=== PATIENT | female | born 1930 | race Caucasian/White ===

== ENCOUNTER 2016-10-09 19:09 | Inpatient (IN) | payer OTHER ==
--- NOTE | 2016-10-09 20:05 | PDOC ---
History of Present Illness - General History Source: Patient, Care Provider, Family, Old Records Exam Limitations: No Limitations - History of Present Illness Initial Comments: 10/09/16 20:35 The patient is a 86 year old female, accompanied by family, with a significant past medical history of hypertension, hypercholesterolemia, coronary artery disease, angina, CVA, advanced dementia, diabetes mellitus, chronic severe constipation, multiple urinary tract infections who presents to the emergency department today for further evaluation of a possible UTI since this morning. As per family, the patients home health aid noticed some swelling by the bladder. As per family patient has associated altered mental status (from baseline), fever, dysuria, and tachycardia. As per family, at baseline the patient recognized people and communicate verbally (Day>Night) but does not ambulate on her own. As per home improvement advisor, patient was last seen at baseline this morning. The patient denies chills, and sweats. The patient denies nausea, vomiting, and diarrhea. The patient denies chest pain, cough, and shortness of breath. PCP: Not affiliated <Yuriy Colmenares - Last Filed: 10/09/16 23:59> <Suzanne Snowden - Last Filed: 10/10/16 21:08> - General Chief Complaint: Urinary Problem Stated Complaint: UTI Time Seen by Provider: 10/09/16 19:44 Past History <Yuriy Colmenares - Last Filed: 10/09/16 23:59> - Past Medical History Anemia: No Asthma: No Cancer: No Cardiac Disorders: Yes (angina) CVA: Yes COPD: No CHF: No Dementia: Yes Diabetes: Yes GI Disorders: Yes (Severe constipation) Disorders: Yes (Occassional UTI (12/2012)) HTN: Yes Hypercholesterolemia: Yes Liver Disease: No Suicide Attempt (Hx): No Seizures: No Thyroid Disease: No - Surgical History Abdominal Surgery: Yes Appendectomy: Yes Cardiac Surgery: Yes (QUAD. BYPASS, CARD STENT) Cholecystectomy: No Lung Surgery: No Neurologic Surgery: No Orthopedic Surgery: No - Immunization History Immunization Up to Date: Yes - Psycho/Social/Smoking Cessation Hx Anxiety: No Suicidal Ideation: No Smoking Status: No Smoking History: Unknown if ever smoked Have you smoked in the past 12 months: No Number of Cigarettes Smoked Daily: 0 Information on smoking cessation initiated: No Hx Alcohol Use: No Drug/Substance Use Hx: No Substance Use Type: None Hx Substance Use Treatment: No <SpJoseporfiroi Tompkins - Last Filed: 10/10/16 21:08> - Past Medical History Allergies/Adverse Reactions: Allergies Allergy/AdvReac Type Severity Reaction Status Date / Time quetiapine fumarate Allergy Severe Difficulty Verified 10/09/16 19:46 [From Seroquel] Breathing ranolazine [From Ranexa] Allergy Verified 10/09/16 19:46 Home Medications: Ambulatory Orders Clopidogrel Bisulfate [Plavix -] 75 mg PO DAILY 12/23/15 Duloxetine HCl 20 mg PO DAILY 12/23/15 Ferrous Sulfate 325 mg PO DAILY 12/23/15 Isosorbide Mononitrate [Imdur -] 90 mg PO DAILY 12/23/15 Metformin HCl 850 mg PO BID 12/23/15 Polyethylene Glycol 3350 [Miralax 119 gm Btl -] 17 gm PO TID 12/23/15 Docusate Sodium [Colace -] 100 mg PO BID #40 capsule 04/14/16 Metoprolol Succinate [Toprol XL -] 50 mg PO DAILY #21 tab.sr.24h 04/14/16 Aspirin [ASA -] 81 mg PO DAILY #30 tab.chew 08/17/16 Atorvastatin Ca [Lipitor] 20 mg PO HS #30 tablet 08/17/16 Lactobacillus Acidophilus [Bacid -] 1 each PO DAILY #30 capsule 08/17/16 Abd/GI Specific PMHX - Complaint Specific PMHX Colitis: No Diverticulitis: No GERD: No Irritable Bowel Synd (IBS): No Pancreatitis: No <Suzanne Snowden - Last Filed: 10/10/16 21:08> Review of Systems - Review of Systems Able to Perform ROS?: Yes Comments:: 10/09/16 20:36 CONSTITUTIONAL: Present: fever Absent: no chills, no fatigue EYES: Absent: visual changes ENT: Absent: ear pain, no sore throat CARDIOVASCULAR: Present: Tachycardic Absent: chest pain, no palpitations RESPIRATORY: Absent: cough, no SOB GI: Present: Chronic constipation Absent: abdominal pain, no nausea, no vomiting, no diarrhea GENITOURINARY: Present: dysuria Absent: no frequency, no hematuria MUSCULOSKELETAL: Absent: back pain, no arthralgia, no myalgia SKIN: Absent: rash NEURO: Present: altered mental status Absent: headache <Yuriy Colmenares - Last Filed: 10/09/16 23:59> *Physical Exam - Vital Signs Last Vital Signs Temp Pulse Resp BP Pulse Ox 100.8 F H 124 H 18 178/112 100 10/09/16 19:46 10/09/16 19:46 10/09/16 19:46 10/09/16 19:46 10/09/16 19:46 - Physical Exam Comments: 10/09/16 20:36 GENERAL: Well-appearing, well-nourished. No apparent distress. HEENT: Normocephalic, atraumatic. PERRL, EOM intact. CARDIOVASCULAR: (+) Tachycardia, normal S1, S2. Regular rhythm. PULMONARY: Clear to auscultation bilaterally. ABDOMEN: (+) Turbulent tender abdomen . Soft, non-distended. EXTREMITIES: Normal ROM in all four extremities. No gross deformities. SKIN: Warm, dry. No rash NEUROLOGICAL: Awake. <Yuriy Colmenares - Last Filed: 10/09/16 23:59> - Vital Signs Last Vital Signs Temp Pulse Resp BP Pulse Ox 100.8 F H 124 H 18 178/112 100 10/09/16 19:46 10/09/16 19:46 10/09/16 19:46 10/09/16 19:46 10/09/16 19:46 <Suzanne Snowden - Last Filed: 10/10/16 21:08> ED Treatment Course - LABORATORY CBC & Chemistry Diagram: 10/09/16 20:46 10/09/16 20:46 <Yuriy Colmenares - Last Filed: 10/09/16 23:59> - LABORATORY CBC & Chemistry Diagram: 10/09/16 20:46 10/09/16 20:46 <Suzanne Snowden - Last Filed: 10/10/16 21:08> Medical Decision Making - Medical Decision Making 10/10/16 00:[address] Lyons. Case discussed. He wants to admit patient to [facility]. <Yuriy Colmenares - Last Filed: 10/09/16 23:59> - Medical Decision Making 10/10/16 21:03 86 YO FEMALE BROUGHT BY FAMILY FROM HOME FOR FEVER AND ams. she is tachycardic, febrile -PT HAS H/O ams ASSOCIATED WITH uti -NO FOCAL NEURO DEFICITS,PT SMILES AND TRACKS WITH HER EYES, SAYS HELLO pt has leukocytosis, UA c/w uti -pt has h/o multiple drug resistant uti, reviewed old urine culture from last November when her cultures showed sensitivity alek zosyn and so she was startedonthis <Suzanne Snowden - Last Filed: 10/10/16 21:08> *DC/Admit/Observation/Transfer - Attestations Scribe Attestion: 10/09/16 20:36 Documentation prepared by Yuriy Colmenares, acting as medical receptionist biller for Suzanne Snowden MD. <Yuriy Colmenares - Last Filed: 10/09/16 23:59> - Discharge Dispostion Admit: Yes <Suzanne Snowden - Last Filed: 10/10/16 21:08> Diagnosis at time of Disposition: UTI (lower urinary tract infection), Hyperglycemia, Urinary retention Altered mental status Qualifiers: Altered mental status type: somnolence Qualified Code(s): R40.0 - Somnolence - Referrals
[2016-10-09] MEDS ORDERED: ACETAMINOPHEN 1000 MG/100 ML VIAL (NON FORMULARY) IVPB ONE (20:27)
[2016-10-09 21:12] LABS: BASOPHIL 0.1 % (0-2.0); EOSINOPHIL 0.2 % (0-4.5); MCH 28.4 pg (25.7-33.7); MCHC 32.9 g/dl (32.0-36.0); MEAN CELL VOLUME 86.2 fl (80-96); MEAN PLT VOLUME 8.5 fl (7.5-11.1); NEUTROPHILS 84.5 % (42.8-82.8); PLATELET COUNT 265 K/MM3 (134-434); RDW 15.8 % (11.6-15.6); WHITE BLOOD COUNT 16.1 K/mm3 (4.0-10.0)
[2016-10-09 21:14] LABS: ARTERIAL BLOOD GAS pH 7.44 (7.35-7.45)
[2016-10-09] MEDS ORDERED: ACETAMINOPHEN INJECTION 100 ML IVPB ONE (21:14)
[2016-10-09 21:15] LABS: ARTERIAL BLOOD GAS BASE EXCESS -2.8 meq/l (-2-2); ARTERIAL BLOOD GAS HCO3 19.7 meq/L (22-26); METHEMOGLOBIN 1.3 % (0.4-1.5)
[2016-10-09 21:16] LABS: LPM/O2% 21%; TYPE OF O2 R/A
[2016-10-09 21:18] LABS: ALLENS TEST POSITIVE; PT. ON O2? NO
[2016-10-09 21:27] LABS: INR 1.03 (0.82-1.09); PROTHROMBIN TIME (PATIENT) 11.3 SEC (9.98-11.88)
[2016-10-09 21:29] LABS: ACTIVATED PTT 30.4 SECONDS (26.9-34.4)
[2016-10-09 21:31] LABS: ALBUMIN 3.4 g/dl (3.4-5.0); ANION GAP 11 (8-16); BILIRUBIN,TOTAL 0.4 mg/dL (0.2-1.0); CALCIUM 9.3 mg/dL (8.5-10.1); CO2 20 mmol/L (21-32); CREATININE 0.7 mg/dL (0.55-1.02); GLUCOSE,RANDOM 250 mg/dL (74-106); SGOT/AST 9 U/L (15-37); SGPT/ALT 13 U/L (12-78); TOT PROT 7.1 g/dl (6.4-8.2)
[2016-10-09 21:33] LABS: ALK PHOS 64 U/L (45-117); TROPONIN I < 0.02 ng/ml (0.00-0.05)
[2016-10-09] MEDS ORDERED: SODIUM CHLORIDE 250 ML IV STA (22:36)
[2016-10-09 22:46] LABS: URINE APPEARANCE SLCLOUDY; URINE BILIRUBIN NEGATIVE (NEGATIVE); URINE COLOR LTYELLOW; URINE GLUCOSE (UA) 2+ (NEGATIVE); URINE KETONE NEGATIVE (NEGATIVE); URINE NITRITE NEGATIVE (NEGATIVE); URINE UROBILINOGEN NEGATIVE E.U./dl (0.2-1.0)
[2016-10-09 22:48] LABS: URINE BLOOD 2+ (NEGATIVE); URINE LEUK ESTERASE 3+ (NEGATIVE); URINE PROTEIN 2+ (NEGATIVE)
[2016-10-09 22:51] LABS: URINE BACTERIA RARE /hpf (NONE SEEN); URINE MUCUS RARE; URINE RBC 10 /hpf (0-3); URINE WBC 219 /hpf (3-5); YEAST FEW
[2016-10-09] MEDS ORDERED: LEVOFLOXACIN 500 MG IVPB 100 ML IVPB ONE ×2 (23:35→23:50)
--- NOTE | 2016-10-10 00:19 | PN ---
<Amy Galvan - Last Filed: 10/10/16 00:19> Teaching Attending Note Name of Resident: Fransico Pugh ATTENDING PHYSICIAN STATEMENT I saw and evaluated the patient. I reviewed the resident's note and discussed the case with the resident. I agree with the resident's findings and plan as documented. SUBJECTIVE: OBJECTIVE: ASSESSMENT AND PLAN: <Radha Reyna - Last Filed: 10/10/16 01:23> Teaching Attending Note ATTENDING PHYSICIAN STATEMENT I saw and evaluated the patient. I reviewed the resident's note and discussed the case with the resident. I agree with the resident's findings and plan as documented. SUBJECTIVE: Patient is a 86 yo F with a PMHx of hypertension, hypercholesterolemia, coronary artery disease, angina, CVA, advanced dementia, diabetes mellitus, chronic severe constipation, and multiple urinary tract infections who presents with altered mental status, fever and fast heart rate. As per daughter, patient s home health aid noticed lower abdominal swelling this morning. Patients daughter also reports patient is typically able to communicate verbally, but does not ambulate on her own. Allergies: quetiapine, fumarate, ranolazine OBJECTIVE: Last Vital Signs Temp Pulse Resp BP Pulse Ox 100.8 F H 124 H 18 178/112 100 10/09/16 19:46 10/09/16 19:46 10/09/16 19:46 10/09/16 19:46 10/09/16 19:46 GENERAL: AAO x 0, in no acute distress. resting in bed. HEENT: Atraumatic. PERRLA, EOMI. Moist mucosa. No JVD LUNGS: No distress, speaks full sentences, clear to auscultation bilaterally HEART: tachycardia S1 and S2, no murmurs, rubs or gallops, peripheral pulses normal and equal bilaterally. ABDOMEN: Soft, nontender, normoactive bowel sounds. No guarding, no rebound. No masses EXTREMITIES: Normal inspection, Normal range of motion, no edema. No clubbing or cyanosis. NEUROLOGICAL: Cranial nerves II through XII grossly intact. Normal speech, normal gait, no focal sensorimotor deficits SKIN: Warm, Dry, normal turgor, no rashes or lesions noted. CBCD WBC 16.1 K/mm3 (4.0-10.0) H D 10/09/16 20:46 RBC 4.71 M/mm3 (3.60-5.2) 02/12/17 20:46 Hgb 13.4 GM/dL (10.7-15.3) D 10/09/16 20:46 Hct 40.6 % (32.4-45.2) 10/09/16 20:46 MCV 86.2 fl (80-96) 10/09/16 20:46 MCHC 32.9 g/dl (32.0-36.0) 10/09/16 20:46 RDW 15.8 % (11.6-15.6) H 10/09/16 20:46 Plt Count 265 K/MM3 (134-434) 10/09/16 20:46 MPV 8.5 fl (7.5-11.1) 10/09/16 20:46 CMP Sodium 137 mmol/L (136-145) 10/09/16 20:46 Potassium 4.1 mmol/L (3.5-5.1) 10/09/16 20:46 Chloride 106 mmol/L (98-107) 10/09/16 20:46 Carbon Dioxide 20 mmol/L (21-32) L D 10/09/16 20:46 Anion Gap 11 (8-16) 10/09/16 20:46 BUN 28 mg/dL (7-18) H 10/09/16 20:46 Creatinine 0.7 mg/dL (0.55-1.02) 10/09/16 20:46 Creat Clearance w eGFR > 60 (>60) 10/09/16 20:46 Calcium 9.3 mg/dL (8.5-10.1) 10/09/16 20:46 Total Bilirubin 0.4 mg/dL (0.2-1.0) 10/09/16 20:46 AST 9 U/L (15-37) L 10/09/16 20:46 ALT 13 U/L (12-78) D 10/09/16 20:46 Alkaline Phosphatase 64 U/L (45-117) 10/09/16 20:46 Total Protein 7.1 g/dl (6.4-8.2) 10/09/16 20:46 Albumin 3.4 g/dl (3.4-5.0) 10/09/16 20:46 ASSESSMENT AND PLAN: Patient is a 86 yo F with a PMHx of hypertension, hypercholesterolemia, coronary artery disease, angina, CVA, advanced dementia, diabetes mellitus, chronic severe constipation, multiple urinary tract infections who presents with AMS found to be septic secondary to UTI. 1.) Prior culture positive for ESBL e coli -Zosyn 3.37 Q 6 -U culture -Dr. Ritchie on consult -Blood cultures -Repeat lactic acid -Gentle IVF 2.) Uncontrolled DM -Fingersticks -RAISS 3.) CAD -Continue home meds 4.) HLD -Continue statin 5.) HTN -Continue home meds DVT ppx -Heparin 5000 Q 8 Documentation prepared by Radha Reyna, acting as medical laboratory manager for Amy Galvan D.O.
[2016-10-10] MEDS ORDERED: PIPERACILLIN/TAZOB 3.375 GM 3.375 GM in DEXTROSE 5%-WATER - 50 ML IVPB ONE (01:16)
[2016-10-10] MEDS ORDERED: PIPERACILLIN/TAZOB 3.375 GM 50 ML IVPB ONE (01:24)
--- NOTE | 2016-10-10 01:39 | HP ---
CHIEF COMPLAINT: Urinary retention PCP: Dr. Lyons HISTORY OF PRESENT ILLNESS: 86 yo F with significant PMHx of HTN, HLD,DM, CAD(s/p CABG), CVA, multiple UTI and dementia presents for further evaluation for possible UTI. SHe is accompanied by her family who state that she is at her baseline as of the morning of 10/09/16 when her home health aid noticed that she was not communicating as she normally does. Aide also noticed fever and patient complaining of dysuria. Decision was made to bring her to ED as she has had similar episodes in past that have required hospitilzaton. She was seen recently in 2015 for very similar presentation and found to have ESBL in urine. Patient denies CP, REGALADO, SOB, palpitation, chills, n/v/d/c. ER course was notable for: (1)UA(+) UTI- given levaquin and zosyn, UC pending. h/o ESBL (2)CXR (-) acute pathology. Rapid FLu(-) (3)hyperglycemia - glucose 250 Recent Travel: no PAST MEDICAL HISTORY:HTN, HLD,DM, CAD(s/p CABG), CVA, multiple UTI and dementia PAST SURGICAL HISTORY: Appendectomy ,CABG, stent. Social History: Smoking:no Alcohol:no Drugs: no Family History: Allergies quetiapine fumarate [From Seroquel] Allergy (Severe, Verified 10/09/16 19:46) Difficulty Breathing NMS ranolazine [From Ranexa] Allergy (Verified 10/09/16 19:46) HOME MEDICATIONS: Home Medications Medication Instructions Recorded Clopidogrel Bisulfate [Plavix -] 75 mg PO DAILY 12/23/15 Duloxetine HCl 20 mg PO DAILY 12/23/15 Ferrous Sulfate 325 mg PO DAILY 12/23/15 Isosorbide Mononitrate [Imdur -] 90 mg PO DAILY 12/23/15 Metformin HCl 850 mg PO BID 12/23/15 Pilocarpine 2% [Pilostat 2% -] 15 ml OD BID 12/23/15 Polyethylene Glycol 3350 [Miralax 17 gm PO TID 12/23/15 119 gm Btl -] Docusate Sodium [Colace -] 100 mg PO BID #40 capsule 04/14/16 Metoprolol Succinate [Toprol XL -] 50 mg PO DAILY #21 tab.sr.24h 04/14/16 Aspirin [ASA -] 81 mg PO DAILY #30 tab.chew 08/17/16 Atorvastatin Ca [Lipitor] 20 mg PO HS #30 tablet 08/17/16 Lactobacillus Acidophilus [Bacid -] 1 each PO DAILY #30 capsule 08/17/16 REVIEW OF SYSTEMS CONSTITUTIONAL: fever, chills, diaphoresis, generalized weakness Absent: , malaise, loss of appetite, weight change HEENT: Absent: rhinorrhea, nasal congestion, throat pain, throat swelling, difficulty swallowing, mouth swelling, ear pain, eye pain, visual changes CARDIOVASCULAR: Absent: chest pain, syncope, palpitations, irregular heart rate, lightheadedness , peripheral edema RESPIRATORY: Absent: cough, shortness of breath, dyspnea with exertion, orthopnea, wheezing, stridor, hemoptysis GASTROINTESTINAL: Absent: abdominal pain, abdominal distension, nausea, vomiting, diarrhea, constipation, melena, hematochezia GENITOURINARY: dysuria, frequency, Absent: urgency, hesitancy, hematuria, flank pain, genital pain MUSCULOSKELETAL: Absent: myalgia, arthralgia, joint swelling, back pain, neck pain SKIN: Absent: rash, itching, pallor HEMATOLOGIC/IMMUNOLOGIC: Absent: easy bleeding, easy bruising, lymphadenopathy, frequent infections ENDOCRINE: Absent: unexplained weight gain, unexplained weight loss, heat intolerance, cold intolerance NEUROLOGIC: mental status changes Absent: headache, focal weakness or paresthesias, dizziness, unsteady gait, seizure,, bladder or bowel incontinence PSYCHIATRIC: Absent: anxiety, depression, suicidal or homicidal ideation, hallucinations. PHYSICAL EXAMINATION Vital Signs - 24 hr 10/09/16 19:46 Temperature 100.8 F H Pulse Rate 124 H Respiratory 18 Rate Blood Pressure 178/112 O2 Sat by Pulse 100 Oximetry (%) GENERAL: Lethargic and non verbal, thin and frail HEAD: Normal with no signs of trauma. EYES: Pupils equal, round and reactive to light, extraocular movements intact, sclera anicteric, conjunctiva clear. No lid lag. EARS, NOSE, THROAT: Ears normal, nares patent, oropharynx clear without exudates. dry mucous membranes. NECK: supple with no jvd LUNGS: Breath sounds equal, clear to auscultation bilaterally. No wheezes, and no crackles. No accessory muscle use. HEART: Regular rate and rhythm, normal S1 and S2 without murmur, rub or gallop. ABDOMEN: Soft, nontender, not distended, normoactive bowel sounds, no guarding, no rebound, no masses. No hepatomegaly or splenomegaly. MUSCULOSKELETAL: No bony deformities or tenderness. No CVA tenderness. UPPER EXTREMITIES: 2+ pulses, No cyanosis. No clubbing. Cap refill <2 seconds. No peripheral edema. LOWER EXTREMITIES:1+ pulses No calf tenderness. No peripheral edema. NEUROLOGICAL: lethargic and non verbal PSYCHIATRIC: flat effect. SKIN:cool and clammy, Laboratory Results - last 24 hr 10/09/16 10/09/16 10/09/16 20:40 20:46 20:46 WBC 16.1 H D RBC 4.71 Hgb 13.4 D Hct 40.6 MCV 86.2 MCHC 32.9 RDW 15.8 H Plt Count 265 MPV 8.5 Neutrophils % 84.5 H Lymphocytes % 7.1 L D Monocytes % 8.1 Eosinophils % 0.2 D Basophils % 0.1 INR 1.03 PTT (Actin FS) 30.4 Puncture Site ABG pH ABG pCO2 at Pt Temp ABG pO2 at Pt Temp ABG HCO3 ABG O2 Sat (Measured) ABG O2 Content ABG Base Excess Amandeep Test Carboxyhemoglobin Methemoglobin O2 Delivery Device Oxygen Flow Rate Sodium Potassium Chloride Carbon Dioxide Anion Gap BUN Creatinine Creat Clearance w eGFR Random Glucose Lactic Acid 1.618 Calcium Total Bilirubin AST ALT Alkaline Phosphatase Creatine Kinase Troponin I Total Protein Albumin Urine Color Urine Appearance Urine pH Ur Specific [place] Urine Protein Urine Glucose (UA) Urine Ketones Urine Blood Urine Nitrite Urine Bilirubin Urine Urobilinogen Ur Leukocyte Esterase Urine RBC Urine WBC Urine Bacteria Urine Mucus Urine Yeast Blood Type Antibody Screen 10/09/16 10/09/16 10/09/16 20:46 20:46 20:56 WBC RBC Hgb Hct MCV MCHC RDW Plt Count MPV Neutrophils % Lymphocytes % Monocytes % Eosinophils % Basophils % INR PTT (Actin FS) Puncture Site Md puncture ABG pH 7.44 ABG pCO2 at Pt Temp 29.5 L ABG pO2 at Pt Temp 107.0 H ABG HCO3 19.7 L ABG O2 Sat (Measured) 98.0 ABG O2 Content 18.6 ABG Base Excess -2.8 L Amandeep Test Positive Carboxyhemoglobin 1.2 Methemoglobin 1.3 O2 Delivery Device R/a Oxygen Flow Rate 21% Sodium 137 Potassium 4.1 Chloride 106 Carbon Dioxide 20 L D Anion Gap 11 BUN 28 H Creatinine 0.7 Creat Clearance w eGFR > 60 Random Glucose 250 H D Lactic Acid Calcium 9.3 Total Bilirubin 0.4 AST 9 L ALT 13 D Alkaline Phosphatase 64 Creatine Kinase 19 L Troponin I < 0.02 Total Protein 7.1 Albumin 3.4 Urine Color Urine Appearance Urine pH Ur Specific [place] Urine Protein Urine Glucose (UA) Urine Ketones Urine Blood Urine Nitrite Urine Bilirubin Urine Urobilinogen Ur Leukocyte Esterase Urine RBC Urine WBC Urine Bacteria Urine Mucus Urine Yeast Blood Type A POSITIVE Antibody Screen Negative 10/09/16 22:30 WBC RBC Hgb Hct MCV MCHC RDW Plt Count MPV Neutrophils % Lymphocytes % Monocytes % Eosinophils % Basophils % INR PTT (Actin FS) Puncture Site ABG pH ABG pCO2 at Pt Temp ABG pO2 at Pt Temp ABG HCO3 ABG O2 Sat (Measured) ABG O2 Content ABG Base Excess Amandeep Test Carboxyhemoglobin Methemoglobin O2 Delivery Device Oxygen Flow Rate Sodium Potassium Chloride Carbon Dioxide Anion Gap BUN Creatinine Creat Clearance w eGFR Random Glucose Lactic Acid Calcium Total Bilirubin AST ALT Alkaline Phosphatase Creatine Kinase Troponin I Total Protein Albumin Urine Color Ltyellow Urine Appearance Slcloudy Urine pH 5.0 Ur Specific [place] 1.012 Urine Protein 2+ H Urine Glucose (UA) 2+ H Urine Ketones Negative Urine Blood 2+ H Urine Nitrite Negative Urine Bilirubin Negative Urine Urobilinogen Negative Ur Leukocyte Esterase 3+ H Urine RBC 10 Urine WBC 219 Urine Bacteria Rare Urine Mucus Rare Urine Yeast Few Blood Type Antibody Screen ASSESSMENT/PLAN: 86 yo F with significant PMHx of HTN, HLD,DM, CAD(s/p CABG), CVA, multiple UTI and dementia admitted for sepsis secondary to UTI. Problem List - Problem (1) Sepsis Assessment/Plan: * Given Levaquin and zosyn in ED * Consulted ID Dr. Ritchie- has seen her in past. * Repeat lactic acid in AM * Cultures pending. * IV hydration. (2) UTI (urinary tract infection) Assessment/Plan: * same as sepsis * ESBL in past. most recently (3) Urinary retention Assessment/Plan: * valencia in place. * cloudy urine. * strict i/o's (4) Altered mental status Assessment/Plan: * Neuro checks Q12 Hrs. (5) Hyperglycemia Assessment/Plan: * BGM ACHS * ADA diet * ISS novolog ACHS. * repeat AM chemistry. (6) Diabetes type 2, uncontrolled Assessment/Plan: * See above for hyperglycemia. * HbgA1C * metformin held. (7) Hyperlipidemia Assessment/Plan: * continue Lipitor 20mg HS * lipid panel (8) CAD (coronary artery disease) Assessment/Plan: * continue * Aspirin (Asa -) 81 mg PO DAILY * Isosorbide Mononitrate (Imdur -) 90 mg PO DAILY * Metoprolol Succinate (Toprol Xl -) 50 mg PO DAILY SEAN (9) S/P CABG (coronary artery bypass graft) Assessment/Plan: * continue * Aspirin (Asa -) 81 mg PO DAILY * Atorvastatin Calcium (Lipitor -) 20 mg PO HS * clopidogrel Bisulfate (Plavix -) 75 mg PO DAILY (10) Chronic constipation Assessment/Plan: * Docusate Sodium (Colace -) 100 mg PO BID * Polyethylene Glycol (Miralax (For Daily Use) -) 17 gm PO TID (11) DVT prophylaxis Assessment/Plan: * Heparin 5000 U SQ BID Visit type - Emergency Visit Emergency Visit: Yes Care time: The patient presented to the Emergency Department on the above date and was hospitalized for further evaluation of their emergent condition. - New Patient This patient is new to me today: Yes Date on this admission: 10/10/16 - Critical Care Critical Care patient: No
[2016-10-10] MEDS: SODIUM CHLORIDE 1,000 ML IV SCH ×3 (02:41→18:53)
[2016-10-10] MEDS: POLYETHYLENE GLYCOL 3350 119 GM BTL PO SCH ×3 (06:09→21:49)
[2016-10-10] MEDS: INSULIN SLIDING SCALE (NOVOLOG) 1 VIAL SQ SCH ×4 (08:43→21:50)
[2016-10-10] MEDS ORDERED: INSULIN NPH 100 UNITS/ML *VIAL ONE (08:45)
[2016-10-10] MEDS ORDERED: ISOSORBIDE MONONITRATE 60 MG TAB.SR.24H (FP) PO SCH (10:00)
[2016-10-10] MEDS ORDERED: PILOCARPINE 2% OPHTHALMIC SOLUTION 15 ML BOTTLE OD SCH (10:00)
[2016-10-10] MEDS: DULoxetine HCL 20 MG CAPSULE.DR (FP) PO SCH (10:06)
[2016-10-10] MEDS: HEPARIN NA (PORCINE) 5,000 UNITS/ML 1ML VIAL SQ SCH ×2 (10:06→21:49)
[2016-10-10] MEDS: CLOPIDOGREL BISULFATE 75 MG TABLET (FP) PO SCH (10:06)
[2016-10-10] MEDS: FERROUS SO4 325 MG TABLET (FP) PO SCH (10:06)
[2016-10-10] MEDS: ISOSORBIDE MONONITRATE 30 MG, ISOSORBIDE MONONITRATE 60 MG PO SCH (10:06)
[2016-10-10] MEDS: DOCUSATE SODIUM 100 MG CAPSULE (FP) PO SCH ×2 (10:06→21:49)
[2016-10-10] MEDS: LACTOBACILLUS ACIDOPHILUS 1 EACH TAB (FP) PO SCH (10:06)
[2016-10-10] MEDS: METOPROLOL SUCCINATE 50 MG TAB.SR.24H (FP) PO SCH (10:06)
[2016-10-10] MEDS: ASPIRIN 81 MG CHEWABLE TABLETS PO SCH (10:06)
--- NOTE | 2016-10-10 10:43 | PN ---
Physical Exam: SUBJECTIVE: Patient seen and examined at bedside. Adult daughter present. Patient is confused. Daughter states this is not her baseline. OBJECTIVE: Vital Signs Period Temp Pulse Resp BP Sys/Iniguez Pulse Ox Last 24 Hr 98.7 F 107 22 91/66 98 GENERAL: The patient is awake, alert. Knows only her first name, thinks she is in her apartment. No sense of time. Weak-appearing. HEAD: Normal with no signs of trauma. EYES: PERRL, extraocular movements intact, sclera anicteric, conjunctiva clear. No ptosis. LUNGS: Scattered rhonchi. Poor inspiratory effort. HEART: Regular rate and rhythm, S1, S2 without murmur, rub or gallop. ABDOMEN: Soft, nontender, nondistended, normoactive bowel sounds, no guarding, no rebound EXTREMITIES: 2+ pulses, warm, well-perfused, no edema. NEUROLOGICAL: Cranial nerves II through XII grossly intact. Normal speech, gait not observed. PSYCH: Normal mood, normal affect. SKIN: Warm, dry, normal turgor, no rashes or lesions noted CBCD WBC 16.1 K/mm3 (4.0-10.0) H D 10/09/16 20:46 RBC 4.71 M/mm3 (3.60-5.2) 10/09/16 20:46 Hgb 13.4 GM/dL (10.7-15.3) D 10/09/16 20:46 Hct 40.6 % (32.4-45.2) 10/09/16 20:46 MCV 86.2 fl (80-96) 10/09/16 20:46 MCHC 32.9 g/dl (32.0-36.0) 10/09/16 20:46 RDW 15.8 % (11.6-15.6) H 10/09/16 20:46 Plt Count 265 K/MM3 (134-434) 10/09/16 20:46 MPV 8.5 fl (7.5-11.1) 10/09/16 20:46 CMP Sodium 137 mmol/L (136-145) 10/09/16 20:46 Potassium 4.1 mmol/L (3.5-5.1) 10/09/16 20:46 Chloride 106 mmol/L (98-107) 10/09/16 20:46 Carbon Dioxide 20 mmol/L (21-32) L D 10/09/16 20:46 Anion Gap 11 (8-16) 10/09/16 20:46 BUN 28 mg/dL (7-18) H 10/09/16 20:46 Creatinine 0.7 mg/dL (0.55-1.02) 10/09/16 20:46 Creat Clearance w eGFR > 60 (>60) 10/09/16 20:46 Calcium 9.3 mg/dL (8.5-10.1) 10/09/16 20:46 Total Bilirubin 0.4 mg/dL (0.2-1.0) 10/09/16 20:46 AST 9 U/L (15-37) L 10/09/16 20:46 ALT 13 U/L (12-78) D 10/09/16 20:46 Alkaline Phosphatase 64 U/L (45-117) 10/09/16 20:46 Total Protein 7.1 g/dl (6.4-8.2) 10/09/16 20:46 Albumin 3.4 g/dl (3.4-5.0) 10/09/16 20:46 Active Medications Generic Name Dose Route Start Last Admin Trade Name Freq PRN Reason Stop Dose Admin Aspirin 81 mg 10/10/16 10:00 10/10/16 10:06 Asa - PO 81 mg DAILY [facility] Administration Atorvastatin Calcium 20 mg 10/10/16 22:00 Lipitor - PO HS SEAN Clopidogrel Bisulfate 75 mg 10/10/16 10:00 10/10/16 10:06 Plavix - PO 75 mg DAILY [facility] Administration Docusate Sodium 100 mg 10/10/16 10:00 10/10/16 10:06 Colace - PO 100 mg BID [facility] Administration Duloxetine HCl 20 mg 10/10/16 10:00 10/10/16 10:06 Cymbalta - PO 20 mg DAILY [facility] Administration Ferrous Sulfate 325 mg 10/10/16 10:00 10/10/16 10:06 Feosol - PO 325 mg DAILY [facility] Administration Heparin Sodium (Porcine) 5,000 unit 10/10/16 10:00 10/10/16 10:06 Heparin - SQ 5,000 unit BID [facility] Administration Sodium Chloride 1,000 mls @ 75 mls/hr 10/10/16 01:45 10/10/16 02:41 Normal Saline - IV 75 mls/hr ASDIR SEAN Administration Insulin Aspart 1 vial 10/10/16 07:00 10/10/16 08:43 Novolog Vial Sliding Scale - SQ 2 units ACHS [facility] Administration Protocol Isosorbide Mononitrate 30 mg/ 90 mg 10/10/16 10:00 10/10/16 10:06 Isosorbide Mononitrate 60 mg PO 90 mg DAILY [facility] Administration Lactobacillus Acidophilus 1 tab 10/10/16 10:00 10/10/16 10:06 Bacid - PO 1 tab DAILY [facility] Administration Metoprolol Succinate 50 mg 10/10/16 10:00 10/10/16 10:06 Toprol Xl - PO 50 mg DAILY [facility] Administration Pilocarpine HCl 224.8876 drop 10/10/16 10:00 Pilostat 2% - OD BID [facility] Polyethylene Glycol 17 gm 10/10/16 06:00 10/10/16 06:09 Miralax (For Daily Use) - PO 17 gm TID [facility] Administration ASSESSMENT/PLAN: 86 year-old woman with a PMH of HTN, HLD, CAD s/p CABG, CVA, DM, dementia and recurrent UTIs. Admitted for severe sepsis secondary to UTI. Severe sepsis secondary to UTI Lactic acidosis --Tm 100.8, p 107, WBC 16.1, pyuria with 219 WBCs --start Ertapenem (day #1) --gave 500cc bolus NS; increase hourly rate --repeat lactic acid stat --flu negative; urine and blood cultures pending Urinary retention --valencia in place for now --strict I&Os Metabolic encephalopathy secondary to UTI --confused, not at baseline per family --neuro checks q4h CAD s/p CABG --continue Toprol XL, Lipitor, Isosorbide, ASA, Plavix Hypertension --BP has been stable, continue Toprol XL but monitor closely for worsening signs of sepsis Hyperlipidemia --continue Lipitor NIDDM --Novolog sliding scale coverage Chronic constipation --Miralax, colace F/E/N Fluids: NS @ 125mL/hr Electrolytes: replete as indicated Nutrition: diabetic diet DVT prophylaxis: subq heparin, oob, ambulation Rehab PT eval Daily PT Dispo: continues to require inpatient care. Full Code. Visit type - Emergency Visit Emergency Visit: Yes ED Registration Date: 10/10/16 Care time: The patient presented to the Emergency Department on the above date and was hospitalized for further evaluation of their emergent condition. - New Patient This patient is new to me today: Yes Date on this admission: 10/10/16 - Critical Care Critical Care patient: No
--- NOTE | 2016-10-10 12:04 | EKG ---
Test Reason : Blood Pressure : / mmHG Vent. Rate : 122 BPM Atrial Rate : 122 BPM P-R Int : 134 ms QRS Dur : 084 ms QT Int : 328 ms P-R-T Axes : 000 -30 142 degrees QTc Int : 467 ms SINUS TACHYCARDIA LEFT AXIS DEVIATION NONSPECIFIC T WAVE ABNORMALITY ABNORMAL ECG WHEN COMPARED WITH ECG OF 15-AUG-2016 10:38, COMPARED TO EKG NO SIGNIFICANT CHANGE IS FOUND Confirmed by KLAUDIA LOPEZ MD ([id number]) on 10/10/2016 12:03:34 PM Referred By: Confirmed By:KLAUDIA LOPEZ MD
--- NOTE | 2016-10-10 15:05 | CONSULT ---
Consult Consult Specialty:: infectious diseases Reason for Consultation:: uti - History of Present Illness History of Present Illness: patient has dementia,not able to give history according tot history noted from the charts 86 yo F with significant PMHx of HTN, HLD,DM, CAD(s/p CABG), CVA, multiple UTI and dementia presents for further evaluation for possible UTI. SHe is accompanied by her family who state that she is at her baseline as of the morning of 10/09/16 when her home health aid noticed that she was not communicating as she normally does. Aide also noticed fever and patient complaining of dysuria. Decision was made to bring her to ED as she has had similar episodes in past that have required hospitilzaton. She was seen recently in 2015 for very similar presentation and found to have ESBL in urine. Patient denies CP, REGALADO, SOB, palpitation, chills, n/v/d/c. 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 diabetic retinopathy ) Cardio/Vascular: Yes: CAD, HTN, Hyperlipdemia, Other (ASHD, CABG) Gastrointestinal: Yes: Constipation Renal/: Yes: Renal Inusuff (New renal insufficiency) Endocrine: Yes: Diabetes Mellitus - Past Surgical History Past Surgical History: Yes: Appendectomy, CABG - Alcohol/Substance Use Hx Alcohol Use: No History of Substance Use: reports: None - Smoking History Smoking history: Unknown if ever smoked Have you smoked in the past 12 months: No Aproximately how many cigarettes per day: 0 - Social History Usual Living Arrangement: Alone 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, needs help to eat History of Recent Travel: No Home Medications - Allergies Allergies/Adverse Reactions: Allergies Allergy/AdvReac Type Severity Reaction Status Date / Time quetiapine fumarate Allergy Severe Difficulty Verified 10/09/16 19:46 [From Seroquel] Breathing ranolazine [From Ranexa] Allergy Verified 10/09/16 19:46 - Home Medications Home Medications: Ambulatory Orders Clopidogrel Bisulfate [Plavix -] 75 mg PO DAILY 12/23/15 Duloxetine HCl 20 mg PO DAILY 12/23/15 Ferrous Sulfate 325 mg PO DAILY 12/23/15 Isosorbide Mononitrate [Imdur -] 90 mg PO DAILY 12/23/15 Metformin HCl 850 mg PO BID 12/23/15 Polyethylene Glycol 3350 [Miralax 119 gm Btl -] 17 gm PO TID 12/23/15 Docusate Sodium [Colace -] 100 mg PO BID #40 capsule 04/14/16 Metoprolol Succinate [Toprol XL -] 50 mg PO DAILY #21 tab.sr.24h 04/14/16 Aspirin [ASA -] 81 mg PO DAILY #30 tab.chew 08/17/16 Atorvastatin Ca [Lipitor] 20 mg PO HS #30 tablet 08/17/16 Lactobacillus Acidophilus [Bacid -] 1 each PO DAILY #30 capsule 08/17/16 Review of Systems Unable to obtain ROS, reason: unable to obtain Physical Exam Vital Signs: Vital Signs Temperature 98.7 F 10/10/16 06:18 Pulse Rate 89 10/10/16 13:04 Respiratory Rate 18 10/10/16 13:04 Blood Pressure 104/68 10/10/16 13:04 O2 Sat by Pulse Oximetry (%) 98 10/10/16 13:04 Constitutional: Yes: No Distress, Calm Eyes: Yes: Conjunctiva Clear Cardiovascular: Yes: Regular Rate and Rhythm Respiratory: Yes: Regular, CTA Bilaterally Gastrointestinal: Yes: Normal Bowel Sounds, Soft, Tenderness Renal/: Yes: Other (suprapubic tenderness). No: CVA Tenderness - Left, CVA Tenderness - Right Musculoskeletal: Yes: WNL Extremities: Yes: WNL Neurological: Yes: Alert, Other Psychiatric: Yes: Other Imaging - Results Chest X-ray: Report Reviewed, Image Reviewed Assessment/Plan . UTI 2 constipation 3. HTN, h/o CAD 4. HLD 5. Dementia/ depression 6. DM 7.leukocytosis fever plan will start patient on ertapenam hydration monitor fever monitor wbc
[2016-10-10] MEDS ORDERED: SODIUM CHLORIDE 500 ML IV STA (17:45)
[2016-10-10] MEDS: ERTAPENEM SODIUM 1 GM in SODIUM CHLORIDE 50 ML IVPB SCH (18:52)
[2016-10-10] MEDS: ATORVASTATIN CA 20 MG TABLET (FP) PO SCH (21:49)
[2016-10-11] MEDS: SODIUM CHLORIDE 1,000 ML IV SCH ×2 (03:14→10:03)
[2016-10-11] MEDS: INSULIN SLIDING SCALE (NOVOLOG) 1 VIAL SQ SCH ×4 (06:31→22:33)
[2016-10-11] MEDS: POLYETHYLENE GLYCOL 3350 119 GM BTL PO SCH ×3 (06:56→22:33)
[2016-10-11 07:41] LABS: BASOPHIL 0.2 % (0-2.0); EOSINOPHIL 4.1 % (0-4.5); MCH 29.4 pg (25.7-33.7); MCHC 33.4 g/dl (32.0-36.0); MEAN PLT VOLUME 8.9 fl (7.5-11.1); NEUTROPHILS 56.6 % (42.8-82.8); PLATELET COUNT 177 K/MM3 (134-434); RDW 16.1 % (11.6-15.6); WHITE BLOOD COUNT 7.3 K/mm3 (4.0-10.0)
[2016-10-11 08:03] LABS: ALBUMIN 2.9 g/dl (3.4-5.0); CALCIUM 8.2 mg/dL (8.5-10.1)
[2016-10-11 08:08] LABS: ALK PHOS 50 U/L (45-117); ANION GAP 10 (8-16); BILIRUBIN,TOTAL 0.3 mg/dL (0.2-1.0); CO2 23 mmol/L (21-32); CREATININE 0.6 mg/dL (0.55-1.02); GLUCOSE,RANDOM 86 mg/dL (74-106); MAGNESIUM 1.4 mg/dL (1.8-2.4); PHOSPHOROUS 3.4 mg/dL (2.5-4.9); SGOT/AST 10 U/L (15-37); SGPT/ALT 11 U/L (12-78); TOT PROT 6.2 g/dl (6.4-8.2)
[2016-10-11] MEDS ORDERED: ISOSORBIDE MONONITRATE 30 MG TAB.SR.24H (FP) PO ONE (09:40)
[2016-10-11] MEDS ORDERED: ISOSORBIDE MONONITRATE 60 MG TAB.SR.24H (FP) PO ONE (09:40)
[2016-10-11] MEDS ORDERED: PT OWN MED DRAWER 7, Y5N ONE (09:41)
[2016-10-11] MEDS: ASPIRIN 81 MG CHEWABLE TABLETS PO SCH (09:50)
[2016-10-11] MEDS: DOCUSATE SODIUM 100 MG CAPSULE (FP) PO SCH ×2 (09:50→22:32)
[2016-10-11] MEDS: LACTOBACILLUS ACIDOPHILUS 1 EACH TAB (FP) PO SCH (09:50)
[2016-10-11] MEDS: ISOSORBIDE MONONITRATE 30 MG, ISOSORBIDE MONONITRATE 60 MG PO SCH (09:51)
[2016-10-11] MEDS: FERROUS SO4 325 MG TABLET (FP) PO SCH (09:51)
[2016-10-11] MEDS: DULoxetine HCL 20 MG CAPSULE.DR (FP) PO SCH (09:51)
[2016-10-11] MEDS: HEPARIN NA (PORCINE) 5,000 UNITS/ML 1ML VIAL SQ SCH ×2 (09:52→22:32)
[2016-10-11] MEDS: CLOPIDOGREL BISULFATE 75 MG TABLET (FP) PO SCH (09:52)
[2016-10-11] MEDS: METOPROLOL SUCCINATE 50 MG TAB.SR.24H (FP) PO SCH ×2 (09:52→22:33)
[2016-10-11] MEDS: ERTAPENEM SODIUM 1 GM in SODIUM CHLORIDE 50 ML IVPB SCH (10:43)
[2016-10-11] MEDS ORDERED: MAGNESIUM SULF 50% (8.12 MEQ/2 ML-1 GM VIAL) IVPB ONE (11:30)
--- NOTE | 2016-10-11 11:51 | PN ---
Physical Exam: SUBJECTIVE: Patient seen and examined. Sleeping but easily arousable. OBJECTIVE: Vital Signs Period Temp Pulse Resp BP Sys/Iniguez Pulse Ox Last 24 Hr 97.2 F-98.0 F 78-99 16-18 104-181/68-94 98-98 GENERAL: The patient is sleeping arousable, cooperative with exam. HEAD: Normal with no signs of trauma. EYES: PERRL, extraocular movements intact, sclera anicteric, conjunctiva clear. No ptosis. LUNGS: CTA. Weak effort. HEART: Regular rate and rhythm, S1, S2 without murmur, rub or gallop. ABDOMEN: Soft, nontender, nondistended, normoactive bowel sounds, no guarding, no rebound EXTREMITIES: 2+ pulses, warm, well-perfused, no edema. NEUROLOGICAL: Cranial nerves II through XII grossly intact. Normal speech, gait not observed. Laboratory Results - last 24 hr 10/10/16 10/10/16 10/10/16 11:32 16:44 19:00 WBC RBC Hgb Hct MCV MCHC RDW Plt Count MPV Neutrophils % Lymphocytes % Monocytes % Eosinophils % Basophils % Sodium Potassium Chloride Carbon Dioxide Anion Gap BUN Creatinine Creat Clearance w eGFR POC Glucometer 133.48465 97 Random Glucose Lactic Acid 0.993 Calcium Phosphorus Magnesium Total Bilirubin AST ALT Alkaline Phosphatase Total Protein Albumin 10/10/16 10/11/16 10/11/16 21:45 06:11 07:05 WBC 7.3 D RBC 3.86 Hgb 11.4 D Hct 34.0 D MCV 88.0 MCHC 33.4 RDW 16.1 H Plt Count 177 D MPV 8.9 Neutrophils % 56.6 D Lymphocytes % 30.3 D Monocytes % 8.8 Eosinophils % 4.1 D Basophils % 0.2 Sodium Potassium Chloride Carbon Dioxide Anion Gap BUN Creatinine Creat Clearance w eGFR POC Glucometer 190 91 Random Glucose Lactic Acid Calcium Phosphorus Magnesium Total Bilirubin AST ALT Alkaline Phosphatase Total Protein Albumin 10/11/16 10/11/16 07:05 07:40 WBC RBC Hgb Hct MCV MCHC RDW Plt Count MPV Neutrophils % Lymphocytes % Monocytes % Eosinophils % Basophils % Sodium 143 Potassium 4.3 Chloride 110 H Carbon Dioxide 23 Anion Gap 10 BUN 27 H Creatinine 0.6 Creat Clearance w eGFR > 60 POC Glucometer Random Glucose 86 D Lactic Acid 0.735 Calcium 8.2 L Phosphorus 3.4 Magnesium 1.4 L Total Bilirubin 0.3 D AST 10 L ALT 11 L Alkaline Phosphatase 50 D Total Protein 6.2 L Albumin 2.9 L Active Medications Generic Name Dose Route Start Last Admin Trade Name An PRN Reason Stop Dose Admin Aspirin 81 mg 10/10/16 10:00 10/11/16 09:50 Asa - PO 81 mg DAILY [facility] Administration Atorvastatin Calcium 20 mg 10/10/16 22:00 10/10/16 21:49 Lipitor - PO 20 mg HS SEAN Administration Clopidogrel Bisulfate 75 mg 10/10/16 10:00 10/11/16 09:52 Plavix - PO 75 mg DAILY [facility] Administration Docusate Sodium 100 mg 10/10/16 10:00 10/11/16 09:50 Colace - PO 100 mg BID SE[facility] Administration Duloxetine HCl 20 mg 10/10/16 10:00 10/11/16 09:51 Cymbalta - PO 20 mg DAILY [facility] Administration Ferrous Sulfate 325 mg 10/10/16 10:00 10/11/16 09:51 Feosol - PO 325 mg DAILY [facility] Administration Heparin Sodium (Porcine) 5,000 unit 10/10/16 10:00 10/11/16 09:52 Heparin - SQ 5,000 unit BID [facility] Administration Ertapenem 1 gm/ Sodium 50 mls @ 100 mls/hr 10/10/16 16:30 10/11/16 10:43 Chloride IVPB 100 mls/hr DAILY [facility] Administration Protocol Insulin Aspart 1 vial 10/10/16 07:00 10/11/16 11:34 Novolog Vial Sliding Scale - SQ Not Given ACHS [facility] Protocol Isosorbide Mononitrate 30 mg/ 90 mg 10/10/16 10:00 10/11/16 09:51 Isosorbide Mononitrate 60 mg PO 90 mg DAILY [facility] Administration Lactobacillus Acidophilus 1 tab 10/10/16 10:00 10/11/16 09:50 Bacid - PO 1 tab DAILY [facility] Administration Metoprolol Succinate 50 mg 10/10/16 10:00 10/11/16 09:52 Toprol Xl - PO 50 mg DAILY [facility] Administration Polyethylene Glycol 17 gm 10/10/16 06:00 10/11/16 06:56 Miralax (For Daily Use) - PO 17 gm TID SEAN Administration ASSESSMENT/PLAN 86 year-old woman with a PMH of HTN, HLD, CAD s/p CABG, CVA, DM, dementia and recurrent UTIs. Admitted for severe sepsis secondary to UTI. Severe sepsis secondary to UTI Lactic acidosis, resolved --defervesced 2/12; WBC wnl; tachycardia resolved --continue Ertapenem (day #2) --pyuria; urine and blood cultures pending Urinary retention --urine much clearer; put out 2.7L yesterday; d/c valencia; voiding trial --strict I&Os Metabolic encephalopathy secondary to UTI --following commands today but still confused --neuro checks q4h CAD s/p CABG --continue Toprol XL, Lipitor, Isosorbide, ASA, Plavix Hypertension --BP elevated on successive readings; increase Toprol XL to BID --stop IV fluids Hyperlipidemia --continue Lipitor NIDDM --Novolog sliding scale coverage Chronic constipation --Miralax, colace F/E/N Fluids: PO intake adequate Electrolytes: replete as indicated Nutrition: diabetic diet DVT prophylaxis: subq heparin, oob, ambulation Rehab PT eval Daily PT Dispo: continues to require inpatient care. Full Code. Visit type - Emergency Visit Emergency Visit: Yes ED Registration Date: 10/10/16 Care time: The patient presented to the Emergency Department on the above date and was hospitalized for further evaluation of their emergent condition. - New Patient This patient is new to me today: No - Critical Care Critical Care patient: No
--- NOTE | 2016-10-11 13:23 | PN ---
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, Physician History of Present Illness: patient stable no new events comfortable - Current Medication List Current Medications: Active Medications Aspirin (Asa -) 81 mg PO DAILY [facility] Last Admin: 10/11/16 09:50 Dose: 81 mg Atorvastatin Calcium (Lipitor -) 20 mg PO HS [facility] Last Admin: 10/10/16 21:49 Dose: 20 mg Clopidogrel Bisulfate (Plavix -) 75 mg PO DAILY [facility] Last Admin: 10/11/16 09:52 Dose: 75 mg Docusate Sodium (Colace -) 100 mg PO BID [facility] Last Admin: 10/11/16 09:50 Dose: 100 mg Duloxetine HCl (Cymbalta -) 20 mg PO DAILY [facility] Last Admin: 10/11/16 09:51 Dose: 20 mg Ferrous Sulfate (Feosol -) 325 mg PO DAILY [facility] Last Admin: 10/11/16 09:51 Dose: 325 mg Heparin Sodium (Porcine) (Heparin -) 5,000 unit SQ BID [facility] Last Admin: 10/11/16 09:52 Dose: 5,000 unit Ertapenem 1 gm/ Sodium (Chloride) 50 mls @ 100 mls/hr IVPB DAILY [facility] PRN Reason: Protocol Last Admin: 10/11/16 10:43 Dose: 100 mls/hr Insulin Aspart (Novolog Vial Sliding Scale -) 1 vial SQ ACHS [facility] PRN Reason: Protocol Last Admin: 10/11/16 11:34 Dose: Not Given Isosorbide Mononitrate 30 mg/ (Isosorbide Mononitrate 60 mg) 90 mg PO DAILY [facility] Last Admin: 10/11/16 09:51 Dose: 90 mg Lactobacillus Acidophilus (Bacid -) 1 tab PO DAILY [facility] Last Admin: 10/11/16 09:50 Dose: 1 tab Metoprolol Succinate (Toprol Xl -) 50 mg PO BID [facility] Polyethylene Glycol (Miralax (For Daily Use) -) 17 gm PO TID [facility] Last Admin: 10/11/16 06:56 Dose: 17 gm - Objective Vital Signs: Vital Signs Temperature 97.2 F L 10/11/16 08:05 Pulse Rate 78 10/11/16 08:05 Respiratory Rate 16 10/11/16 08:05 Blood Pressure 178/94 10/11/16 08:05 O2 Sat by Pulse Oximetry (%) 98 10/10/16 21:00 Constitutional: Yes: No Distress, Calm Cardiovascular: Yes: Regular Rate and Rhythm Respiratory: Yes: Regular, CTA Bilaterally Gastrointestinal: Yes: Normal Bowel Sounds, Soft, Other Musculoskeletal: Yes: Other Extremities: Yes: WNL Neurological: Yes: Alert, Other Labs: CBC, BMP 10/11/16 07:05 10/11/16 07:05 INR, PTT INR 1.03 (0.82-1.09) 10/09/16 20:46 Assessment/Plan . UTI 2 constipation 3. HTN, h/o CAD 4. HLD 5. Dementia/ depression 6. DM 7.leukocytosis fever plan continue current mgmt await for cx report once we have that will decide further rest continue monitoring
[2016-10-11] MEDS ORDERED: INSULIN (NOVOLOG) ASPART 100 UNITS/ML 10ML VIAL ONE (16:28)
[2016-10-11] MEDS: ATORVASTATIN CA 20 MG TABLET (FP) PO SCH (22:32)
[2016-10-12] MEDS: POLYETHYLENE GLYCOL 3350 119 GM BTL PO SCH ×3 (06:15→22:30)
[2016-10-12] MEDS: INSULIN SLIDING SCALE (NOVOLOG) 1 VIAL SQ SCH ×4 (06:15→22:35)
[2016-10-12 07:32] LABS: BASOPHIL 0.2 % (0-2.0); EOSINOPHIL 5.1 % (0-4.5); MCH 28.8 pg (25.7-33.7); MCHC 33.1 g/dl (32.0-36.0); MEAN CELL VOLUME 87.1 fl (80-96); MEAN PLT VOLUME 8.4 fl (7.5-11.1); NEUTROPHILS 57.5 % (42.8-82.8); PLATELET COUNT 166 K/MM3 (134-434); WHITE BLOOD COUNT 5.7 K/mm3 (4.0-10.0)
[2016-10-12 08:42] LABS: ALBUMIN 2.7 g/dl (3.4-5.0); ALK PHOS 43 U/L (45-117); ANION GAP 10 (8-16); BILIRUBIN,TOTAL 0.4 mg/dL (0.2-1.0); CALCIUM 8.4 mg/dL (8.5-10.1); CO2 23 mmol/L (21-32); CREATININE 0.5 mg/dL (0.55-1.02); GLUCOSE,RANDOM 103 mg/dL (74-106); MAGNESIUM 1.9 mg/dL (1.8-2.4); SGOT/AST 9 U/L (15-37); SGPT/ALT 9 U/L (12-78); TOT PROT 5.7 g/dl (6.4-8.2)
[2016-10-12] MEDS ORDERED: ISOSORBIDE MONONITRATE 60 MG TAB.SR.24H (FP) PO ONE (11:39)
[2016-10-12] MEDS ORDERED: ISOSORBIDE MONONITRATE 30 MG TAB.SR.24H (FP) PO ONE (11:40)
[2016-10-12] MEDS ORDERED: PT OWN MED DRAWER 7, Y5N ONE (11:41)
[2016-10-12] MEDS: ASPIRIN 81 MG CHEWABLE TABLETS PO SCH (11:58)
[2016-10-12] MEDS: DOCUSATE SODIUM 100 MG CAPSULE (FP) PO SCH ×2 (11:58→22:31)
[2016-10-12] MEDS: ISOSORBIDE MONONITRATE 30 MG, ISOSORBIDE MONONITRATE 60 MG PO SCH (11:58)
[2016-10-12] MEDS: CLOPIDOGREL BISULFATE 75 MG TABLET (FP) PO SCH (11:58)
[2016-10-12] MEDS: FERROUS SO4 325 MG TABLET (FP) PO SCH (11:59)
[2016-10-12] MEDS: HEPARIN NA (PORCINE) 5,000 UNITS/ML 1ML VIAL SQ SCH ×2 (11:59→22:31)
[2016-10-12] MEDS: LACTOBACILLUS ACIDOPHILUS 1 EACH TAB (FP) PO SCH (11:59)
[2016-10-12] MEDS: DULoxetine HCL 20 MG CAPSULE.DR (FP) PO SCH (11:59)
[2016-10-12] MEDS: METOPROLOL SUCCINATE 50 MG TAB.SR.24H (FP) PO SCH ×2 (12:00→22:30)
[2016-10-12] MEDS: ERTAPENEM SODIUM 1 GM in SODIUM CHLORIDE 50 ML IVPB SCH (12:01)
--- NOTE | 2016-10-12 16:28 | PN ---
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, Physician History of Present Illness: patient looks much better no fever - Current Medication List Current Medications: Active Medications Aspirin (Asa -) 81 mg PO DAILY [facility] Last Admin: 10/12/16 11:58 Dose: 81 mg Atorvastatin Calcium (Lipitor -) 20 mg PO HS [facility] Last Admin: 10/11/16 22:32 Dose: 20 mg Clopidogrel Bisulfate (Plavix -) 75 mg PO DAILY [facility] Last Admin: 10/12/16 11:58 Dose: 75 mg Docusate Sodium (Colace -) 100 mg PO BID [facility] Last Admin: 10/12/16 11:58 Dose: 100 mg Duloxetine HCl (Cymbalta -) 20 mg PO DAILY [facility] Last Admin: 10/12/16 11:59 Dose: 20 mg Ferrous Sulfate (Feosol -) 325 mg PO DAILY [facility] Last Admin: 10/12/16 11:59 Dose: 325 mg Heparin Sodium (Porcine) (Heparin -) 5,000 unit SQ BID [facility] Last Admin: 10/12/16 11:59 Dose: 5,000 unit Ertapenem 1 gm/ Sodium (Chloride) 50 mls @ 100 mls/hr IVPB DAILY [facility] PRN Reason: Protocol Last Admin: 10/12/16 12:01 Dose: 100 mls/hr Insulin Aspart (Novolog Vial Sliding Scale -) 1 vial SQ ACHS [facility] PRN Reason: Protocol Last Admin: 10/12/16 12:27 Dose: Not Given Isosorbide Mononitrate 30 mg/ (Isosorbide Mononitrate 60 mg) 90 mg PO DAILY [facility] Last Admin: 10/12/16 11:58 Dose: 90 mg Lactobacillus Acidophilus (Bacid -) 1 tab PO DAILY [facility] Last Admin: 10/12/16 11:59 Dose: 1 tab Metoprolol Succinate (Toprol Xl -) 50 mg PO BID [facility] Last Admin: 10/12/16 12:00 Dose: 50 mg Polyethylene Glycol (Miralax (For Daily Use) -) 17 gm PO TID [facility] Last Admin: 10/12/16 15:32 Dose: 17 gm - Objective Vital Signs: Vital Signs Temperature 98.8 F 10/12/16 15:12 Pulse Rate 88 10/12/16 15:12 Respiratory Rate 18 10/12/16 15:12 Blood Pressure 109/71 10/12/16 15:12 O2 Sat by Pulse Oximetry (%) 98 10/11/16 21:00 Constitutional: Yes: No Distress, Calm HENT: Yes: Atraumatic Neck: Yes: Supple Cardiovascular: Yes: Regular Rate and Rhythm Respiratory: Yes: Regular, CTA Bilaterally Gastrointestinal: Yes: Normal Bowel Sounds, Soft Musculoskeletal: Yes: WNL Extremities: Yes: WNL Neurological: Yes: Alert, Oriented Psychiatric: Yes: Alert Labs: CBC, BMP 10/12/16 06:10 10/12/16 06:10 INR, PTT INR 1.03 (0.82-1.09) 10/09/16 20:46 Assessment/Plan . UTI 2 constipation 3. HTN, h/o CAD 4. HLD 5. Dementia/ depression 6. DM 7.leukocytosis fever plan continue current mgmt cx shows contamination send repeat urine if patient remains stable might consider changing to oral
[2016-10-12] MEDS ORDERED: MAGNESIUM HYDROX 2400MG/30ML ORAL SUSPENSION 30 ML CUP PO ONE (17:22)
--- NOTE | 2016-10-12 17:29 | PN ---
Physical Exam: SUBJECTIVE: Patient seen and examined. She says she has pain in both her legs, she is in no acute distress she says she is not ready to sleep yet OBJECTIVE: Vital Signs Period Temp Pulse Resp BP Sys/Iniguez Pulse Ox Last 24 Hr 98.6 F-98.8 F 69-88 18-22 109-157/71-86 98 PE Neuro: alert, awake, cn 2-12intact HEENT: no thrush, poor dentition Pulm: Clear anteriorly CV: s1 s2 rrr no mrg + sternal scar healed Abd: RLQ tenderness to palpation, soft, non distended Ext: L foot non pitting edema CBCD WBC 5.7 K/mm3 (4.0-10.0) 10/12/16 06:10 RBC 3.48 M/mm3 (3.60-5.2) L 10/12/16 06:10 Hgb 10.0 GM/dL (10.7-15.3) L D 10/12/16 06:10 Hct 30.3 % (32.4-45.2) L 10/12/16 06:10 MCV 87.1 fl (80-96) 10/12/16 06:10 MCHC 33.1 g/dl (32.0-36.0) 10/12/16 06:10 RDW 16.0 % (11.6-15.6) H 10/12/16 06:10 Plt Count 166 K/MM3 (134-434) 10/12/16 06:10 MPV 8.4 fl (7.5-11.1) 10/12/16 06:10 CMP Sodium 142 mmol/L (136-145) 10/12/16 06:10 Potassium 4.4 mmol/L (3.5-5.1) 10/12/16 06:10 Chloride 109 mmol/L (98-107) H 10/12/16 06:10 Carbon Dioxide 23 mmol/L (21-32) 10/12/16 06:10 Anion Gap 10 (8-16) 10/12/16 06:10 BUN 24 mg/dL (7-18) H 10/12/16 06:10 Creatinine 0.5 mg/dL (0.55-1.02) L 10/12/16 06:10 Creat Clearance w eGFR > 60 (>60) 10/12/16 06:10 Calcium 8.4 mg/dL (8.5-10.1) L 10/12/16 06:10 Total Bilirubin 0.4 mg/dL (0.2-1.0) D 10/12/16 06:10 AST 9 U/L (15-37) L 10/12/16 06:10 ALT 9 U/L (12-78) L 10/12/16 06:10 Alkaline Phosphatase 43 U/L (45-117) L 10/12/16 06:10 Total Protein 5.7 g/dl (6.4-8.2) L 10/12/16 06:10 Albumin 2.7 g/dl (3.4-5.0) L 10/12/16 06:10 Active Medications Generic Name Dose Route Start Last Admin Trade Name Freq PRN Reason Stop Dose Admin Acetaminophen 650 mg 10/12/16 17:22 Tylenol - PO Q4H PRN FEVER OR PAIN Aspirin 81 mg 10/10/16 10:00 10/12/16 11:58 Asa - PO 81 mg DAILY SEAN Administration Atorvastatin Calcium 20 mg 10/10/16 22:00 10/11/16 22:32 Lipitor - PO 20 mg HS SEAN Administration Clopidogrel Bisulfate 75 mg 10/10/16 10:00 10/12/16 11:58 Plavix - PO 75 mg DAILY SEAN Administration Docusate Sodium 100 mg 10/10/16 10:00 10/12/16 11:58 Colace - PO 100 mg BID SEAN Administration Duloxetine HCl 20 mg 10/10/16 10:00 10/12/16 11:59 Cymbalta - PO 20 mg DAILY SEAN Administration Ferrous Sulfate 325 mg 10/10/16 10:00 10/12/16 11:59 Feosol - PO 325 mg DAILY SEAN Administration Heparin Sodium (Porcine) 5,000 unit 10/10/16 10:00 10/12/16 11:59 Heparin - SQ 5,000 unit BID SEAN Administration Ertapenem 1 gm/ Sodium 50 mls @ 100 mls/hr 10/10/16 16:30 10/12/16 12:01 Chloride IVPB 100 mls/hr DAILY SE[facility] Administration Protocol Insulin Aspart 1 vial 10/10/16 07:00 10/12/16 12:27 Novolog Vial Sliding Scale - SQ Not Given ACHS [facility] Protocol Isosorbide Mononitrate 30 mg/ 90 mg 10/10/16 10:00 10/12/16 11:58 Isosorbide Mononitrate 60 mg PO 90 mg DAILY [facility] Administration Lactobacillus Acidophilus 1 tab 10/10/16 10:00 10/12/16 11:59 Bacid - PO 1 tab DAILY [facility] Administration Magnesium Hydroxide 30 ml 10/12/16 17:22 Milk Of Magnesia - PO 10/12/16 17:23 ONCE ONE Metoprolol Succinate 50 mg 10/11/16 22:00 10/12/16 12:00 Toprol Xl - PO 50 mg BID SEAN Administration Polyethylene Glycol 17 gm 10/10/16 06:00 10/12/16 15:32 Miralax (For Daily Use) - PO 17 gm TID SEAN Administration Microbiology 10/09/16 22:30 Urine Culture - Final Urine - Urine - Catheterized Contaminated: Please Repeat 10/09/16 23:55 Respiratory Virus Panel - Preliminary Nasopharyngeal Swab 10/09/16 20:40 Blood Culture - Preliminary Blood - Peripheral Venous NO GROWTH OBTAINED AFTER 48 HOURS, INCUBATION TO CONTINUE FOR 3 DAYS. 10/09/16 20:40 Blood Culture - Preliminary Blood - Peripheral Venous NO GROWTH OBTAINED AFTER 48 HOURS, INCUBATION TO CONTINUE FOR 3 DAYS. Assessment: 86 year old female with a PMH of HTN, HLD, CAD s/p CABG, CVA, DM, dementia and recurrent UTIs admitted for severe sepsis secondary to UTI. Plan: 1. Severe sepsis secondary to UTI, hx of ESBL - Sepsis resolved - Repeat urine cx for contamination - Continue Ertapenem (day 3) - ID seeing 2. Urinary retention - Resolved - Voiding spontaneously 3. Metabolic encephalopathy secondary to UTI/hx of dementia - Able to voice self complaints - Monitor baseline, confer with daughter 4. CAD s/p CABG - Continue Toprol XL, Lipitor, Isosorbide, ASA, Plavix 5. Hypertension - Stable today with increased toprol xl - Maintain Toprol xl 50mg BID 6. Hyperlipidemia - Continue Lipitor 7. DM II - ISS, BGM ACHS 8. RLQ tenderness/Chronic constipation - X1 dose milk of magnesia - Continue miralax, colace 0. Lactic acidosis, resolved 10. DVT PPX - SQ heparin Visit type - Emergency Visit Emergency Visit: Yes ED Registration Date: 10/10/16 Care time: The patient presented to the Emergency Department on the above date and was hospitalized for further evaluation of their emergent condition. - New Patient This patient is new to me today: Yes Date on this admission: 10/12/16 - Critical Care Critical Care patient: No
[2016-10-12] MEDS: ACETAMINOPHEN 325 MG TABLET (FP) PO PRN (18:17)
[2016-10-12] MEDS: ATORVASTATIN CA 20 MG TABLET (FP) PO SCH (22:30)
[2016-10-13] MEDS: POLYETHYLENE GLYCOL 3350 119 GM BTL PO SCH ×3 (06:53→21:27)
[2016-10-13] MEDS: INSULIN SLIDING SCALE (NOVOLOG) 1 VIAL SQ SCH ×4 (06:53→21:25)
[2016-10-13 07:52] LABS: MCH 28.9 pg (25.7-33.7); MCHC 33.3 g/dl (32.0-36.0); MEAN CELL VOLUME 86.8 fl (80-96); MEAN PLT VOLUME 8.9 fl (7.5-11.1); PLATELET COUNT 180 K/MM3 (134-434); WHITE BLOOD COUNT 5.3 K/mm3 (4.0-10.0)
[2016-10-13] MEDS: ERTAPENEM SODIUM 1 GM in SODIUM CHLORIDE 50 ML IVPB SCH (10:35)
[2016-10-13] MEDS ORDERED: ISOSORBIDE MONONITRATE 60 MG TAB.SR.24H (FP) PO ONE ×2 (10:54→11:13)
[2016-10-13] MEDS: ISOSORBIDE MONONITRATE 30 MG, ISOSORBIDE MONONITRATE 60 MG PO SCH (11:08)
[2016-10-13] MEDS: CLOPIDOGREL BISULFATE 75 MG TABLET (FP) PO SCH (11:09)
[2016-10-13] MEDS: FERROUS SO4 325 MG TABLET (FP) PO SCH (11:09)
[2016-10-13] MEDS: ASPIRIN 81 MG CHEWABLE TABLETS PO SCH (11:09)
[2016-10-13] MEDS: DULoxetine HCL 20 MG CAPSULE.DR (FP) PO SCH (11:10)
[2016-10-13] MEDS: DOCUSATE SODIUM 100 MG CAPSULE (FP) PO SCH ×2 (11:10→21:27)
[2016-10-13] MEDS: LACTOBACILLUS ACIDOPHILUS 1 EACH TAB (FP) PO SCH (11:10)
[2016-10-13] MEDS: HEPARIN NA (PORCINE) 5,000 UNITS/ML 1ML VIAL SQ SCH ×2 (11:10→21:26)
[2016-10-13] MEDS ORDERED: ISOSORBIDE MONONITRATE 30 MG TAB.SR.24H (FP) PO ONE (11:13)
[2016-10-13] MEDS: METOPROLOL SUCCINATE 50 MG TAB.SR.24H (FP) PO SCH ×2 (11:29→21:26)
[2016-10-13] MEDS ORDERED: MAGNESIUM HYDROX 2400MG/30ML ORAL SUSPENSION 30 ML CUP PO PRN (15:19)
--- NOTE | 2016-10-13 15:41 | PN ---
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, Physician History of Present Illness: patient looks much better no fever good appetite - Current Medication List Current Medications: Active Medications Acetaminophen (Tylenol -) 650 mg PO Q4H PRN PRN Reason: FEVER OR PAIN Last Admin: 10/12/16 18:17 Dose: 650 mg Aspirin (Asa -) 81 mg PO DAILY [facility] Last Admin: 10/13/16 11:09 Dose: 81 mg Atorvastatin Calcium (Lipitor -) 20 mg PO HS [facility] Last Admin: 10/12/16 22:30 Dose: 20 mg Clopidogrel Bisulfate (Plavix -) 75 mg PO DAILY [facility] Last Admin: 10/13/16 11:09 Dose: 75 mg Docusate Sodium (Colace -) 100 mg PO BID [facility] Last Admin: 10/13/16 11:10 Dose: 100 mg Duloxetine HCl (Cymbalta -) 20 mg PO DAILY [facility] Last Admin: 10/13/16 11:10 Dose: 20 mg Ferrous Sulfate (Feosol -) 325 mg PO DAILY [facility] Last Admin: 10/13/16 11:09 Dose: 325 mg Heparin Sodium (Porcine) (Heparin -) 5,000 unit SQ BID [facility] Last Admin: 10/13/16 11:10 Dose: 5,000 unit Ertapenem 1 gm/ Sodium (Chloride) 50 mls @ 100 mls/hr IVPB DAILY [facility] PRN Reason: Protocol Last Admin: 10/13/16 10:35 Dose: 100 mls/hr Insulin Aspart (Novolog Vial Sliding Scale -) 1 vial SQ ACHS [facility] PRN Reason: Protocol Last Admin: 10/13/16 11:44 Dose: 2 units Isosorbide Mononitrate 30 mg/ (Isosorbide Mononitrate 60 mg) 90 mg PO DAILY [facility] Last Admin: 10/13/16 11:08 Dose: 90 mg Lactobacillus Acidophilus (Bacid -) 1 tab PO DAILY [facility] Last Admin: 10/13/16 11:10 Dose: 1 tab Magnesium Hydroxide (Milk Of Magnesia -) 30 ml PO Q8H PRN PRN Reason: INDIGESTION Metoprolol Succinate (Toprol Xl -) 50 mg PO BID [facility] Last Admin: 10/13/16 11:29 Dose: 50 mg Polyethylene Glycol (Miralax (For Daily Use) -) 17 gm PO TID [facility] Last Admin: 10/13/16 15:38 Dose: 17 gm - Objective Vital Signs: Vital Signs Temperature 98.1 F 10/13/16 15:35 Pulse Rate 80 10/13/16 15:35 Respiratory Rate 18 10/13/16 15:35 Blood Pressure 120/60 10/13/16 15:35 O2 Sat by Pulse Oximetry (%) 98 10/12/16 09:00 Constitutional: Yes: No Distress, Calm Cardiovascular: Yes: Regular Rate and Rhythm Respiratory: Yes: Regular, CTA Bilaterally Gastrointestinal: Yes: Normal Bowel Sounds, Soft Neurological: Yes: Alert, Other Labs: CBC, BMP 10/13/16 06:30 10/12/16 06:10 INR, PTT INR 1.03 (0.82-1.09) 10/09/16 20:46 Assessment/Plan . UTI 2 constipation 3. HTN, h/o CAD 4. HLD 5. Dementia/ depression 6. DM 7.leukocytosis fever plan continue current mgmt await for repeat urine
--- NOTE | 2016-10-13 16:43 | PN ---
Physical Exam: SUBJECTIVE: Patient seen and examined. She says she feels no better. She doesn' t know who the president is, she is in [place], [place]. She sat in chair today OBJECTIVE: Vital Signs Period Temp Pulse Resp BP Sys/Iniguez Pulse Ox Last 24 Hr 97.4 F-98.5 F 65-87 18-20 120-144/60-76 PE Gen: NAD Neuro: alert, awake, oriented to person, follows commands, cn 2-12intact Pulm: clear anteriorly, no wheezing, sob CV: s1 s2 rrr no mrg Abd: RLQ tenderness to palpation, soft, no masses appreciated Ext: warm, L foot edema no pitting, Laboratory Results - last 24 hr 10/12/16 10/12/16 10/13/16 18:09 22:34 06:30 WBC 5.3 RBC 3.57 L Hgb 10.3 L Hct 31.0 L MCV 86.8 MCHC 33.3 RDW 16.0 H Plt Count 180 MPV 8.9 POC Glucometer 218 150 10/13/16 10/13/16 06:53 11:43 WBC RBC Hgb Hct MCV MCHC RDW Plt Count MPV POC Glucometer 119 160 Active Medications Generic Name Dose Route Start Last Admin Trade Name Freq PRN Reason Stop Dose Admin Acetaminophen 650 mg 10/12/16 17:22 10/12/16 18:17 Tylenol - PO 650 mg Q4H PRN Administration FEVER OR PAIN Aspirin 81 mg 10/10/16 10:00 10/13/16 11:09 Asa - PO 81 mg DAILY [facility] Administration Atorvastatin Calcium 20 mg 10/10/16 22:00 10/12/16 22:30 Lipitor - PO 20 mg HS SEAN Administration Clopidogrel Bisulfate 75 mg 10/10/16 10:00 10/13/16 11:09 Plavix - PO 75 mg DAILY [facility] Administration Docusate Sodium 100 mg 10/10/16 10:00 10/13/16 11:10 Colace - PO 100 mg BID [facility] Administration Duloxetine HCl 20 mg 10/10/16 10:00 10/13/16 11:10 Cymbalta - PO 20 mg DAILY [facility] Administration Ferrous Sulfate 325 mg 10/10/16 10:00 10/13/16 11:09 Feosol - PO 325 mg DAILY [facility] Administration Heparin Sodium (Porcine) 5,000 unit 10/10/16 10:00 10/13/16 11:10 Heparin - SQ 5,000 unit BID [facility] Administration Ertapenem 1 gm/ Sodium 50 mls @ 100 mls/hr 10/10/16 16:30 10/13/16 10:35 Chloride IVPB 100 mls/hr DAILY [facility] Administration Protocol Insulin Aspart 1 vial 10/10/16 07:00 10/13/16 11:44 Novolog Vial Sliding Scale - SQ 2 units ACHS [facility] Administration Protocol Isosorbide Mononitrate 30 mg/ 90 mg 10/10/16 10:00 10/13/16 11:08 Isosorbide Mononitrate 60 mg PO 90 mg DAILY [facility] Administration Lactobacillus Acidophilus 1 tab 10/10/16 10:00 10/13/16 11:10 Bacid - PO 1 tab DAILY [facility] Administration Magnesium Hydroxide 30 ml 10/13/16 15:19 Milk Of Magnesia - PO Q8H PRN INDIGESTION Metoprolol Succinate 50 mg 10/11/16 22:00 10/13/16 11:29 Toprol Xl - PO 50 mg BID [facility] Administration Polyethylene Glycol 17 gm 10/10/16 06:00 10/13/16 15:38 Miralax (For Daily Use) - PO 17 gm TID SE[facility] Administration Assessment: 86 year old female with a PMH of HTN, HLD, CAD s/p CABG, CVA, DM, dementia and recurrent UTIs admitted for severe sepsis secondary to UTI. Plan: 1. Severe sepsis secondary to UTI, hx of ESBL - Sepsis resolved - Repeat urine cx pending - Continue Ertapenem (day 4) - ID seeing 2. RLQ tenderness - Abd US ordered, will follow 3. Urinary retention - Resolved - Voiding spontaneously 4. Metabolic encephalopathy secondary to UTI/hx of dementia - Able to voice self complaints 5. CAD s/p CABG - Continue Toprol XL, Lipitor, Isosorbide, ASA, Plavix 6. Hypertension - Controlled h increased - Maintain increased dose Toprol xl 50mg BID 7. Hyperlipidemia - Continue Lipitor 8. DM II - ISS, BGM ACHS 9. RLQ tenderness/Chronic constipation - Milk of magnesia 30 q8 prn - Continue miralax, colace 10. Lactic acidosis, resolved 11. DVT PPX - SQ heparin Visit type - Emergency Visit Emergency Visit: Yes ED Registration Date: 10/10/16 Care time: The patient presented to the Emergency Department on the above date and was hospitalized for further evaluation of their emergent condition. - New Patient This patient is new to me today: No - Critical Care Critical Care patient: No
[2016-10-13] MEDS: ATORVASTATIN CA 20 MG TABLET (FP) PO SCH (21:27)
[2016-10-14] MEDS: INSULIN SLIDING SCALE (NOVOLOG) 1 VIAL SQ SCH ×4 (06:13→22:41)
[2016-10-14] MEDS: POLYETHYLENE GLYCOL 3350 119 GM BTL PO SCH ×3 (06:14→22:32)
[2016-10-14 09:03] LABS: BASOPHIL 0.3 % (0-2.0); EOSINOPHIL 4.7 % (0-4.5); MCH 28.5 pg (25.7-33.7); MCHC 32.8 g/dl (32.0-36.0); MEAN PLT VOLUME 8.6 fl (7.5-11.1); NEUTROPHILS 57.1 % (42.8-82.8); PLATELET COUNT 183 K/MM3 (134-434); RDW 15.8 % (11.6-15.6); WHITE BLOOD COUNT 5.4 K/mm3 (4.0-10.0)
--- NOTE | 2016-10-14 09:04 | PN ---
Physical Exam: SUBJECTIVE: Patient seen and examined at bedside. OBJECTIVE: Vital Signs Period Temp Pulse Resp BP Sys/Iniguez Pulse Ox Last 24 Hr 97.6 F-98.4 F 65-80 18-20 120-154/60-82 GENERAL: The patient is awake, alert. A&Ox 1. HEAD: Normal with no signs of trauma. EYES: PERRL, extraocular movements intact, sclera anicteric, conjunctiva clear. No ptosis. LUNGS: Breath sounds equal, clear to auscultation bilaterally, no wheezes, no crackles, no accessory muscle use. HEART: Regular rate and rhythm, S1, S2 without murmur, rub or gallop. ABDOMEN: RLQ and suprapubic tenderness; no guarding, no rebound EXTREMITIES: 2+ pulses, warm, well-perfused, no edema. NEUROLOGICAL: Cranial nerves II through XII grossly intact. CBCD WBC 5.4 K/mm3 (4.0-10.0) 10/14/16 08:20 RBC 3.41 M/mm3 (3.60-5.2) L 10/14/16 08:20 Hgb 9.7 GM/dL (10.7-15.3) L 10/14/16 08:20 Hct 29.7 % (32.4-45.2) L 10/14/16 08:20 MCV 87.0 fl (80-96) 10/14/16 08:20 MCHC 32.8 g/dl (32.0-36.0) 10/14/16 08:20 RDW 15.8 % (11.6-15.6) H 10/14/16 08:20 Plt Count 183 K/MM3 (134-434) 10/14/16 08:20 MPV 8.6 fl (7.5-11.1) 10/14/16 08:20 CMP Sodium 142 mmol/L (136-145) 10/12/16 06:10 Potassium 4.4 mmol/L (3.5-5.1) 10/12/16 06:10 Chloride 109 mmol/L (98-107) H 10/12/16 06:10 Carbon Dioxide 23 mmol/L (21-32) 10/12/16 06:10 Anion Gap 10 (8-16) 10/12/16 06:10 BUN 24 mg/dL (7-18) H 10/12/16 06:10 Creatinine 0.5 mg/dL (0.55-1.02) L 10/12/16 06:10 Creat Clearance w eGFR > 60 (>60) 10/12/16 06:10 Calcium 8.4 mg/dL (8.5-10.1) L 10/12/16 06:10 Total Bilirubin 0.4 mg/dL (0.2-1.0) D 10/12/16 06:10 AST 9 U/L (15-37) L 10/12/16 06:10 ALT 9 U/L (12-78) L 10/12/16 06:10 Alkaline Phosphatase 43 U/L (45-117) L 10/12/16 06:10 Total Protein 5.7 g/dl (6.4-8.2) L 10/12/16 06:10 Albumin 2.7 g/dl (3.4-5.0) L 10/12/16 06:10 Current Medications Generic Name Dose Route Start Last Admin Trade Name Freq PRN Reason Stop Dose Admin Acetaminophen 650 mg 10/12/16 17:22 10/14/16 14:40 Tylenol - PO 650 mg Q4H PRN Administration FEVER OR PAIN Aspirin 81 mg 10/10/16 10:00 10/14/16 12:06 Asa - PO 81 mg DAILY [facility] Administration Atorvastatin Calcium 20 mg 10/10/16 22:00 10/13/16 21:27 Lipitor - PO 20 mg HS [facility]AN Administration Clopidogrel Bisulfate 75 mg 10/10/16 10:00 10/14/16 12:06 Plavix - PO 75 mg DAILY [facility] Administration Docusate Sodium 100 mg 10/10/16 10:00 10/14/16 12:06 Colace - PO 100 mg BID [facility] Administration Duloxetine HCl 20 mg 10/10/16 10:00 10/14/16 12:07 Cymbalta - PO 20 mg DAILY [facility] Administration Ferrous Sulfate 325 mg 10/10/16 10:00 10/14/16 12:06 Feosol - PO 325 mg DAILY [facility] Administration Heparin Sodium (Porcine) 5,000 unit 10/10/16 10:00 10/14/16 12:06 Heparin - SQ 5,000 unit BID SE[facility] Administration Sodium Chloride 1,000 mls @ 75 mls/hr 10/14/16 14:15 02/17/17 14:29 Normal Saline - IV 75 mls/hr ASDIR [facility] Administration Insulin Aspart 1 vial 10/10/16 07:00 10/14/16 17:01 Novolog Vial Sliding Scale - SQ 4 units ACHS [facility] Administration Protocol Isosorbide Mononitrate 30 mg/ 90 mg 10/10/16 10:00 10/14/16 12:06 Isosorbide Mononitrate 60 mg PO 90 mg DAILY [facility] Administration Lactobacillus Acidophilus 1 tab 10/10/16 10:00 10/14/16 12:06 Bacid - PO 1 tab DAILY [facility] Administration Magnesium Hydroxide 30 ml 10/13/16 15:19 Milk Of Magnesia - PO Q8H PRN INDIGESTION Metoprolol Succinate 50 mg 10/11/16 22:00 10/14/16 12:07 Toprol Xl - PO 50 mg BID [facility] Administration Polyethylene Glycol 17 gm 10/10/16 06:00 10/14/16 14:27 Miralax (For Daily Use) - PO 17 gm TID SEAN Administration ASSESSMENT/PLAN 86 year-old woman with a PMH of HTN, HLD, CAD s/p CABG, CVA, DM, dementia and recurrent UTIs. Admitted for severe sepsis secondary to UTI. Severe sepsis secondary to UTI Lactic acidosis, resolved --defervesced 10/09; WBC wnl; tachycardia resolved --completed levaquin (10/09), Zosyn (10/10), Ertapenem (10/10-->10/14); antibiotics finished Urinary retention, resolved RLQ and suprapubic tenderness --10/13 US bladder shows 5,5 x 2cm nonmobile masslike density/layering in urinary bladder, mass v. debris/blood clots --CTAP with contrast ordered --IV fluids zainab-procedure for renal protection; stop in the am Metabolic encephalopathy secondary to UTI --following commands today but still confused --neuro checks q4h CAD s/p CABG --continue Toprol XL, Lipitor, Isosorbide, ASA, Plavix Hypertension --BP elevated on successive readings; increase Toprol XL to BID --stop IV fluids Hyperlipidemia --continue Lipitor NIDDM --Novolog sliding scale coverage Chronic constipation --Miralax, colace F/E/N Fluids: PO intake adequate Electrolytes: replete as indicated Nutrition: diabetic diet DVT prophylaxis: subq heparin, oob, ambulation Rehab PT eval Daily PT Dispo: continues to require inpatient care. Full Code. Visit type - Emergency Visit Emergency Visit: Yes ED Registration Date: 10/10/16 Care time: The patient presented to the Emergency Department on the above date and was hospitalized for further evaluation of their emergent condition. - New Patient This patient is new to me today: No - Critical Care Critical Care patient: No
[2016-10-14] MEDS: ERTAPENEM SODIUM 1 GM in SODIUM CHLORIDE 50 ML IVPB SCH (11:59)
[2016-10-14] MEDS ORDERED: ISOSORBIDE MONONITRATE 30 MG TAB.SR.24H (FP) PO ONE (12:03)
[2016-10-14] MEDS ORDERED: ISOSORBIDE MONONITRATE 60 MG TAB.SR.24H (FP) PO ONE (12:03)
[2016-10-14] MEDS ORDERED: PT OWN MED DRAWER 7, Y5N ONE ×2 (12:05→14:53)
[2016-10-14] MEDS: ISOSORBIDE MONONITRATE 30 MG, ISOSORBIDE MONONITRATE 60 MG PO SCH (12:06)
[2016-10-14] MEDS: FERROUS SO4 325 MG TABLET (FP) PO SCH (12:06)
[2016-10-14] MEDS: HEPARIN NA (PORCINE) 5,000 UNITS/ML 1ML VIAL SQ SCH ×2 (12:06→22:32)
[2016-10-14] MEDS: CLOPIDOGREL BISULFATE 75 MG TABLET (FP) PO SCH (12:06)
[2016-10-14] MEDS: LACTOBACILLUS ACIDOPHILUS 1 EACH TAB (FP) PO SCH (12:06)
[2016-10-14] MEDS: DOCUSATE SODIUM 100 MG CAPSULE (FP) PO SCH ×2 (12:06→22:31)
[2016-10-14] MEDS: ASPIRIN 81 MG CHEWABLE TABLETS PO SCH (12:06)
[2016-10-14] MEDS: DULoxetine HCL 20 MG CAPSULE.DR (FP) PO SCH (12:07)
[2016-10-14] MEDS: METOPROLOL SUCCINATE 50 MG TAB.SR.24H (FP) PO SCH ×2 (12:07→22:32)
--- NOTE | 2016-10-14 13:31 | PN ---
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, Physician History of Present Illness: doing well no events - Current Medication List Current Medications: Active Medications Acetaminophen (Tylenol -) 650 mg PO Q4H PRN PRN Reason: FEVER OR PAIN Last Admin: 10/12/16 18:17 Dose: 650 mg Aspirin (Asa -) 81 mg PO DAILY [facility] Last Admin: 10/14/16 12:06 Dose: 81 mg Atorvastatin Calcium (Lipitor -) 20 mg PO HS [facility] Last Admin: 10/13/16 21:27 Dose: 20 mg Clopidogrel Bisulfate (Plavix -) 75 mg PO DAILY [facility] Last Admin: 10/14/16 12:06 Dose: 75 mg Docusate Sodium (Colace -) 100 mg PO BID [facility] Last Admin: 10/14/16 12:06 Dose: 100 mg Duloxetine HCl (Cymbalta -) 20 mg PO DAILY [facility] Last Admin: 10/14/16 12:07 Dose: 20 mg Ferrous Sulfate (Feosol -) 325 mg PO DAILY [facility] Last Admin: 10/14/16 12:06 Dose: 325 mg Heparin Sodium (Porcine) (Heparin -) 5,000 unit SQ BID [facility] Last Admin: 10/14/16 12:06 Dose: 5,000 unit Ertapenem 1 gm/ Sodium (Chloride) 50 mls @ 100 mls/hr IVPB DAILY [facility] PRN Reason: Protocol Last Admin: 10/14/16 11:59 Dose: 100 mls/hr Insulin Aspart (Novolog Vial Sliding Scale -) 1 vial SQ ACHS [facility] PRN Reason: Protocol Last Admin: 10/14/16 11:59 Dose: Not Given Isosorbide Mononitrate 30 mg/ (Isosorbide Mononitrate 60 mg) 90 mg PO DAILY [facility] Last Admin: 10/14/16 12:06 Dose: 90 mg Lactobacillus Acidophilus (Bacid -) 1 tab PO DAILY [facility] Last Admin: 10/14/16 12:06 Dose: 1 tab Magnesium Hydroxide (Milk Of Magnesia -) 30 ml PO Q8H PRN PRN Reason: INDIGESTION Metoprolol Succinate (Toprol Xl -) 50 mg PO BID [facility] Last Admin: 10/14/16 12:07 Dose: 50 mg Polyethylene Glycol (Miralax (For Daily Use) -) 17 gm PO TID [facility] Last Admin: 10/14/16 06:14 Dose: Not Given - Objective Vital Signs: Vital Signs Temperature 97.6 F 02/17/17 06:00 Pulse Rate 79 10/14/16 06:00 Respiratory Rate 20 10/14/16 06:00 Blood Pressure 146/82 10/14/16 06:00 O2 Sat by Pulse Oximetry (%) 98 10/13/16 09:00 Constitutional: Yes: No Distress, Calm Cardiovascular: Yes: Regular Rate and Rhythm Respiratory: Yes: Regular, CTA Bilaterally Gastrointestinal: Yes: Normal Bowel Sounds, Soft Musculoskeletal: Yes: WNL Extremities: Yes: WNL Neurological: Yes: Alert, Other Psychiatric: Yes: Alert Labs: CBC, BMP 10/14/16 08:20 10/12/16 06:10 INR, PTT INR 1.03 (0.82-1.09) 10/09/16 20:46 Assessment/Plan . UTI 2 constipation 3. HTN, h/o CAD 4. HLD 5. Dementia/ depression 6. DM 7.leukocytosis fever plan will stop abx continue current mgmt
[2016-10-14] MEDS ORDERED: SODIUM CHLORIDE 250 ML IV STA (14:08)
[2016-10-14] MEDS: SODIUM CHLORIDE 1,000 ML IV SCH (14:29)
[2016-10-14] MEDS: ACETAMINOPHEN 325 MG TABLET (FP) PO PRN (14:40)
[2016-10-14 17:39] LABS: CALCIUM 8.4 mg/dL (8.5-10.1); CREATININE 0.7 mg/dL (0.55-1.02)
[2016-10-14] MEDS ORDERED: BISACODYL 10 MG SUPP.RECT PR STA (20:59)
[2016-10-14] MEDS: ATORVASTATIN CA 20 MG TABLET (FP) PO SCH (22:31)
[2016-10-15] MEDS: POLYETHYLENE GLYCOL 3350 119 GM BTL PO SCH ×3 (06:51→21:38)
[2016-10-15] MEDS: INSULIN SLIDING SCALE (NOVOLOG) 1 VIAL SQ SCH ×4 (06:51→22:14)
[2016-10-15 07:37] LABS: BASOPHIL 0.1 % (0-2.0); EOSINOPHIL 5.5 % (0-4.5); MCH 28.6 pg (25.7-33.7); MCHC 32.6 g/dl (32.0-36.0); MEAN CELL VOLUME 87.7 fl (80-96); MEAN PLT VOLUME 8.6 fl (7.5-11.1); NEUTROPHILS 58.3 % (42.8-82.8); PLATELET COUNT 191 K/MM3 (134-434); RDW 16.4 % (11.6-15.6)
[2016-10-15 08:07] LABS: ALBUMIN 3.3 g/dl (3.4-5.0); ALK PHOS 48 U/L (45-117); ANION GAP 8 (8-16); BILIRUBIN,TOTAL 0.3 mg/dL (0.2-1.0); CO2 27 mmol/L (21-32); CREATININE 0.7 mg/dL (0.55-1.02); GLUCOSE,RANDOM 97 mg/dL (74-106); MAGNESIUM 1.8 mg/dL (1.8-2.4); PHOSPHOROUS 3.3 mg/dL (2.5-4.9); SGOT/AST 10 U/L (15-37); SGPT/ALT 11 U/L (12-78); TOT PROT 6.7 g/dl (6.4-8.2)
[2016-10-15] MEDS ORDERED: ISOSORBIDE MONONITRATE 60 MG TAB.SR.24H (FP) PO ONE (10:37)
[2016-10-15] MEDS ORDERED: ISOSORBIDE MONONITRATE 30 MG TAB.SR.24H (FP) PO ONE (10:37)
[2016-10-15] MEDS: DOCUSATE SODIUM 100 MG CAPSULE (FP) PO SCH ×3 (10:42→21:37)
[2016-10-15] MEDS: LACTOBACILLUS ACIDOPHILUS 1 EACH TAB (FP) PO SCH (10:42)
[2016-10-15] MEDS: ISOSORBIDE MONONITRATE 30 MG, ISOSORBIDE MONONITRATE 60 MG PO SCH (10:42)
[2016-10-15] MEDS: HEPARIN NA (PORCINE) 5,000 UNITS/ML 1ML VIAL SQ SCH ×2 (10:42→21:37)
[2016-10-15] MEDS: FERROUS SO4 325 MG TABLET (FP) PO SCH (10:42)
[2016-10-15] MEDS: ASPIRIN 81 MG CHEWABLE TABLETS PO SCH (10:42)
[2016-10-15] MEDS: DULoxetine HCL 20 MG CAPSULE.DR (FP) PO SCH (10:42)
[2016-10-15] MEDS: SODIUM CHLORIDE 1,000 ML IV SCH (10:43)
[2016-10-15] MEDS: CLOPIDOGREL BISULFATE 75 MG TABLET (FP) PO SCH (10:43)
[2016-10-15] MEDS: METOPROLOL SUCCINATE 50 MG TAB.SR.24H (FP) PO SCH ×2 (10:43→21:37)
[2016-10-15] MEDS ORDERED: LISINOPRIL 10 MG TABLET (FP) PO SCH (10:45)
--- NOTE | 2016-10-15 10:45 | PN ---
Physical Exam: SUBJECTIVE: Patient seen and examined OBJECTIVE: Vital Signs Period Temp Pulse Resp BP Sys/Iniguez Pulse Ox Last 24 Hr 97.8 F-98.4 F 72-82 18-20 116-189/66-100 97 GENERAL: The patient is awake, alert. A&Ox 1. HEAD: Normal with no signs of trauma. EYES: PERRL, extraocular movements intact, sclera anicteric, conjunctiva clear. No ptosis. LUNGS: Breath sounds equal, clear to auscultation bilaterally, no wheezes, no crackles, no accessory muscle use. HEART: Regular rate and rhythm, S1, S2 without murmur, rub or gallop. ABDOMEN: mild RLQ and suprapubic tenderness; no guarding, no rebound EXTREMITIES: 2+ pulses, warm, well-perfused, no edema. NEUROLOGICAL: Cranial nerves II through XII grossly intact. Laboratory Results - last 24 hr 10/14/16 10/14/16 10/14/16 11:04 16:00 16:44 WBC RBC Hgb Hct MCV MCHC RDW Plt Count MPV Neutrophils % Lymphocytes % Monocytes % Eosinophils % Basophils % Sodium 139 Potassium 4.4 Chloride 105 Carbon Dioxide 24 Anion Gap 10 BUN 24 H Creatinine 0.7 D Creat Clearance w eGFR POC Glucometer 122 228 Random Glucose 209 H D Calcium 8.4 L Phosphorus Magnesium Total Bilirubin AST ALT Alkaline Phosphatase Total Protein Albumin 10/14/16 10/15/16 10/15/16 22:34 06:00 06:00 WBC 7.0 RBC 3.74 Hgb 10.7 D Hct 32.8 MCV 87.7 MCHC 32.6 RDW 16.4 H Plt Count 191 MPV 8.6 Neutrophils % 58.3 Lymphocytes % 27.5 Monocytes % 8.6 Eosinophils % 5.5 H Basophils % 0.1 Sodium 138 Potassium 4.6 Chloride 103 Carbon Dioxide 27 Anion Gap 8 BUN 23 H Creatinine 0.7 Creat Clearance w eGFR > 60 POC Glucometer 292 Random Glucose 97 D Calcium 9.0 Phosphorus 3.3 Magnesium 1.8 Total Bilirubin 0.3 D AST 10 L ALT 11 L D Alkaline Phosphatase 48 Total Protein 6.7 Albumin 3.3 L D 10/15/16 06:47 WBC RBC Hgb Hct MCV MCHC RDW Plt Count MPV Neutrophils % Lymphocytes % Monocytes % Eosinophils % Basophils % Sodium Potassium Chloride Carbon Dioxide Anion Gap BUN Creatinine Creat Clearance w eGFR POC Glucometer 106 Random Glucose Calcium Phosphorus Magnesium Total Bilirubin AST ALT Alkaline Phosphatase Total Protein Albumin Current Medications Generic Name Dose Route Start Last Admin Trade Name Martínq PRN Reason Stop Dose Admin Acetaminophen 650 mg 10/12/16 17:22 10/14/16 14:40 Tylenol - PO 650 mg Q4H PRN Administration FEVER OR PAIN Aspirin 81 mg 10/10/16 10:00 10/15/16 10:42 Asa - PO 81 mg DAILY [facility] Administration Atorvastatin Calcium 20 mg 10/10/16 22:00 10/14/16 22:31 Lipitor - PO 20 mg HS SEAN Administration Clopidogrel Bisulfate 75 mg 10/10/16 10:00 10/15/16 10:43 Plavix - PO 75 mg DAILY [facility] Administration Docusate Sodium 100 mg 10/15/16 14:00 Colace - PO TID [facility] Duloxetine HCl 20 mg 10/10/16 10:00 10/15/16 10:42 Cymbalta - PO 20 mg DAILY [facility] Administration Ferrous Sulfate 325 mg 10/10/16 10:00 10/15/16 10:42 Feosol - PO 325 mg DAILY [facility] Administration Heparin Sodium (Porcine) 5,000 unit 10/10/16 10:00 10/15/16 10:42 Heparin - SQ 5,000 unit BID [facility] Administration Sodium Chloride 1,000 mls @ 75 mls/hr 10/14/16 14:15 10/15/16 10:43 Normal Saline - IV 75 mls/hr ASDIR [facility] Administration Insulin Aspart 1 vial 10/10/16 07:00 10/15/16 06:51 Novolog Vial Sliding Scale - SQ Not Given ACHS [facility] Protocol Isosorbide Mononitrate 30 mg/ 90 mg 10/10/16 10:00 10/15/16 10:42 Isosorbide Mononitrate 60 mg PO 90 mg DAILY [facility] Administration Lactobacillus Acidophilus 1 tab 10/10/16 10:00 10/15/16 10:42 Bacid - PO 1 tab DAILY [facility] Administration Lisinopril 10 mg 10/15/16 10:45 Prinivil PO DAILY [facility] Metoprolol Succinate 50 mg 10/11/16 22:00 10/15/16 10:43 Toprol Xl - PO 50 mg BID [facility] Administration Mineral Oil 133 ml 10/15/16 11:00 Fleet Mineral Oil Rectal Enema - CO 10/15/16 11:01 NOW ONE Polyethylene Glycol 17 gm 10/10/16 06:00 10/15/16 06:51 Miralax (For Daily Use) - PO 17 gm TID [facility] Administration Imaging 10/13 US bladder: 5.5 x 2cm nonmobile masslike density/layering in urinary bladder, mass v. debris/blood clots 10/14 CTAP w/contrast: 2 filling defects in bladder: 3.5 x 1.5 x 1.8cm and 2.4 x 2.4 x 2.2cm, blood clots v. urinary sediment v. neoplastic process; large amount of retained stool, fecal impaction within the rectum ASSESSMENT/PLAN 86 year-old woman with a PMH of HTN, HLD, CAD s/p CABG, CVA, DM, dementia and recurrent UTIs. Admitted for severe sepsis secondary to UTI. Now with two masses in bladder and fecal impaction. Severe sepsis secondary to UTI, resolved Lactic acidosis, resolved --afebrile, no leukocytosis --completed levaquin (10/09), Zosyn (10/10), Ertapenem (10/10-->10/14); antibiotics finished Metabolic encephalopathy secondary to UTI, resolved Urinary retention, resolved Bladder masses --two masses in bladder, blood clots v. urinary sediment v. neoplastic process; may explain previous episodes of urinary retention --needs cystoscopy; urology consult requested --contrast load 10/14, was given IV fluids pre and post x 12 hours; watch renal function CAD s/p CABG --continue Toprol XL, Lipitor, Isosorbide, ASA, Plavix Hypertension --BP remains elevated; add lisinopril 20mg Hyperlipidemia --continue Lipitor NIDDM --Novolog sliding scale coverage Chronic constipation Rectal fecal impaction --enema today --Miralax, colace F/E/N Fluids: PO intake adequate Electrolytes: replete as indicated Nutrition: diabetic diet DVT prophylaxis: subq heparin, oob, ambulation Rehab PT eval Daily PT Dispo: continues to require inpatient care. Full Code. Visit type - Emergency Visit Emergency Visit: Yes ED Registration Date: 10/10/16 Care time: The patient presented to the Emergency Department on the above date and was hospitalized for further evaluation of their emergent condition. - New Patient This patient is new to me today: No - Critical Care Critical Care patient: No
[2016-10-15] MEDS ORDERED: MINERAL OIL ENEMA 133 ML ENEMA PR ONE (11:00)
--- NOTE | 2016-10-15 12:12 | CON.GU ---
Consult - History of Present Illness History of Present Illness: 86 yo female admitted with uti (recurrent), multiple medical problems. CT scan reveals 2 filling defects in bladder-sediment vs clot vs tumor. 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 diabetic retinopathy ) Cardio/Vascular: Yes: CAD, HTN, Hyperlipdemia, Other (ASHD, CABG) Gastrointestinal: Yes: Constipation Renal/: Yes: Renal Inusuff (New renal insufficiency) Endocrine: Yes: Diabetes Mellitus - Past Surgical History Past Surgical History: Yes: Appendectomy, CABG - Alcohol/Substance Use Hx Alcohol Use: No History of Substance Use: reports: None - Smoking History Smoking history: Unknown if ever smoked Have you smoked in the past 12 months: No Aproximately how many cigarettes per day: 0 - Social History Usual Living Arrangement: Alone 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, needs help to eat History of Recent Travel: No Home Medications - Allergies Allergies/Adverse Reactions: Allergies Allergy/AdvReac Type Severity Reaction Status Date / Time quetiapine fumarate Allergy Severe Difficulty Verified 10/09/16 19:46 [From Seroquel] Breathing ranolazine [From Ranexa] Allergy Verified 10/09/16 19:46 - Home Medications Home Medications: Ambulatory Orders Clopidogrel Bisulfate [Plavix -] 75 mg PO DAILY 12/23/15 Duloxetine HCl 20 mg PO DAILY 12/23/15 Ferrous Sulfate 325 mg PO DAILY 12/23/15 Isosorbide Mononitrate [Imdur -] 90 mg PO DAILY 12/23/15 Metformin HCl 850 mg PO BID 12/23/15 Polyethylene Glycol 3350 [Miralax 119 gm Btl -] 17 gm PO TID 12/23/15 Docusate Sodium [Colace -] 100 mg PO BID #40 capsule 04/14/16 Metoprolol Succinate [Toprol XL -] 50 mg PO DAILY #21 tab.sr.24h 04/14/16 Aspirin [ASA -] 81 mg PO DAILY #30 tab.chew 08/17/16 Atorvastatin Ca [Lipitor] 20 mg PO HS #30 tablet 08/17/16 Lactobacillus Acidophilus [Bacid -] 1 each PO DAILY #30 capsule 08/17/16 Physical Exam- Vital Signs: Vital Signs Temperature 98 F 10/15/16 10:35 Pulse Rate 78 10/15/16 10:35 Respiratory Rate 20 10/15/16 10:35 Blood Pressure 189/100 10/15/16 10:35 O2 Sat by Pulse Oximetry (%) 97 10/14/16 21:00 Labs: CBC, BMP 10/15/16 06:00 10/15/16 06:00 Imaging - Results Cat Scan: Report Reviewed Problem List - Problems (1) Bladder mass Assessment/Plan: patient will require cystoscopy. if no other medical issues keeping patient in hospital then consider discharge with cystoscopy as outpt Code(s): N32.89 - OTHER SPECIFIED DISORDERS OF BLADDER
--- NOTE | 2016-10-15 14:01 | PN ---
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, Physician History of Present Illness: doing well stable - Current Medication List Current Medications: Active Medications Acetaminophen (Tylenol -) 650 mg PO Q4H PRN PRN Reason: FEVER OR PAIN Last Admin: 10/14/16 14:40 Dose: 650 mg Aspirin (Asa -) 81 mg PO DAILY [facility] Last Admin: 10/15/16 10:42 Dose: 81 mg Atorvastatin Calcium (Lipitor -) 20 mg PO HS [facility] Last Admin: 10/14/16 22:31 Dose: 20 mg Clopidogrel Bisulfate (Plavix -) 75 mg PO DAILY [facility] Last Admin: 10/15/16 10:43 Dose: 75 mg Docusate Sodium (Colace -) 100 mg PO TID [facility] Duloxetine HCl (Cymbalta -) 20 mg PO DAILY [facility] Last Admin: 10/15/16 10:42 Dose: 20 mg Ferrous Sulfate (Feosol -) 325 mg PO DAILY [facility] Last Admin: 10/15/16 10:42 Dose: 325 mg Heparin Sodium (Porcine) (Heparin -) 5,000 unit SQ BID [facility] Last Admin: 10/15/16 10:42 Dose: 5,000 unit Sodium Chloride (Normal Saline -) 1,000 mls @ 75 mls/hr IV ASDIR [facility] Last Admin: 10/15/16 10:43 Dose: 75 mls/hr Insulin Aspart (Novolog Vial Sliding Scale -) 1 vial SQ ACHS [facility] PRN Reason: Protocol Last Admin: 10/15/16 12:06 Dose: 2 units Isosorbide Mononitrate 30 mg/ (Isosorbide Mononitrate 60 mg) 90 mg PO DAILY [facility] Last Admin: 10/15/16 10:42 Dose: 90 mg Lactobacillus Acidophilus (Bacid -) 1 tab PO DAILY [facility] Last Admin: 10/15/16 10:42 Dose: 1 tab Lisinopril (Prinivil) 10 mg PO DAILY [facility] Last Admin: 10/15/16 11:08 Dose: 10 mg Metoprolol Succinate (Toprol Xl -) 50 mg PO BID [facility] Last Admin: 10/15/16 10:43 Dose: 50 mg Polyethylene Glycol (Miralax (For Daily Use) -) 17 gm PO TID [facility] Last Admin: 10/15/16 06:51 Dose: 17 gm - Objective Vital Signs: Vital Signs Temperature 98 F 10/15/16 10:35 Pulse Rate 78 10/15/16 10:35 Respiratory Rate 20 10/15/16 10:35 Blood Pressure 189/100 10/15/16 10:35 O2 Sat by Pulse Oximetry (%) 97 10/14/16 21:00 Constitutional: Yes: No Distress, Calm Cardiovascular: Yes: Regular Rate and Rhythm Respiratory: Yes: Regular, CTA Bilaterally Gastrointestinal: Yes: Normal Bowel Sounds, Soft Musculoskeletal: Yes: WNL Extremities: Yes: WNL Labs: CBC, BMP 10/15/16 06:00 10/15/16 06:00 INR, PTT INR 1.03 (0.82-1.09) 10/09/16 20:46 Assessment/Plan . UTI 2 constipation 3. HTN, h/o CAD 4. HLD 5. Dementia/ depression 6. DM 7.leukocytosis fever Bladder mass Code(s): N32.89 - OTHER SPECIFIED DISORDERS OF BLADDER new finding noted in the u/s urology note noted filling defect noted plan for cystoscopy plan continue current mgmt plan for cystoscopy
[2016-10-15] MEDS: ATORVASTATIN CA 20 MG TABLET (FP) PO SCH (21:37)
[2016-10-16] MEDS: INSULIN SLIDING SCALE (NOVOLOG) 1 VIAL SQ SCH ×4 (06:40→21:48)
[2016-10-16] MEDS: POLYETHYLENE GLYCOL 3350 119 GM BTL PO SCH ×3 (06:40→21:39)
[2016-10-16] MEDS: DOCUSATE SODIUM 100 MG CAPSULE (FP) PO SCH ×3 (06:41→21:39)
--- NOTE | 2016-10-16 07:56 | DS ---
Physical Exam: SUBJECTIVE: Patient seen and examined. OBJECTIVE: Vital Signs Period Temp Pulse Resp BP Sys/Iniguez Pulse Ox Last 24 Hr 98 F-98.4 F 78-81 18-20 100-189/50-100 100-100 PHYSICAL EXAM GENERAL: The patient is awake, alert. A&Ox 1. HEAD: Normal with no signs of trauma. EYES: PERRL, extraocular movements intact, sclera anicteric, conjunctiva clear. No ptosis. LUNGS: Breath sounds equal, clear to auscultation bilaterally, no wheezes, no crackles, no accessory muscle use. HEART: Regular rate and rhythm, S1, S2 without murmur, rub or gallop. ABDOMEN: mild RLQ and suprapubic tenderness; no guarding, no rebound EXTREMITIES: 2+ pulses, warm, well-perfused, no edema. NEUROLOGICAL: Cranial nerves II through XII grossly intact. LABS Laboratory Results - last 24 hr 10/15/16 10/15/16 10/15/16 06:00 12:05 17:15 Sodium 138 Potassium 4.6 Chloride 103 Carbon Dioxide 27 Anion Gap 8 BUN 23 H Creatinine 0.7 Creat Clearance w eGFR > 60 POC Glucometer 189 223 Random Glucose 97 D Calcium 9.0 Phosphorus 3.3 Magnesium 1.8 Total Bilirubin 0.3 D AST 10 L ALT 11 L D Alkaline Phosphatase 48 Total Protein 6.7 Albumin 3.3 L D 10/15/16 10/16/16 22:12 06:37 Sodium Potassium Chloride Carbon Dioxide Anion Gap BUN Creatinine Creat Clearance w eGFR POC Glucometer 181 118 Random Glucose Calcium Phosphorus Magnesium Total Bilirubin AST ALT Alkaline Phosphatase Total Protein Albumin HOSPITAL COURSE: Date of Admission:10/10/16 Date of Discharge: 10/16/16 Imaging 10/13 US bladder: 5.5 x 2cm nonmobile masslike density/layering in urinary bladder, mass v. debris/blood clots 10/14 CTAP w/contrast: 2 filling defects in bladder: 3.5 x 1.5 x 1.8cm and 2.4 x 2.4 x 2.2cm, blood clots v. urinary sediment v. neoplastic process; large amount of retained stool, fecal impaction within the rectum ASSESSMENT/PLAN 86 year-old woman with a PMH of HTN, HLD, CAD s/p CABG, CVA, DM, dementia and recurrent UTIs. Admitted for severe sepsis secondary to UTI. Severe sepsis secondary to UTI, resolved Lactic acidosis, resolved --afebrile, no leukocytosis --completed levaquin (10/09), Zosyn (10/10), Ertapenem (10/10-->10/14); antibiotics finished Metabolic encephalopathy secondary to UTI, resolved Urinary retention, resolved Bladder masses --two masses in bladder, blood clots v. urinary sediment v. neoplastic process; may explain previous episodes of urinary retention --needs cystoscopy; urology consult done, outpatient followup; discussed with family CAD s/p CABG --continued Toprol XL, Lipitor, Isosorbide, ASA, Plavix Hypertension --BP remained persistently elevated; added lisinopril Hyperlipidemia --continued Lipitor NIDDM --Novolog sliding scale coverage Chronic constipation Rectal fecal impaction --enema today --Miralax, colace F/E/N Fluids: PO intake adequate Electrolytes: replete as indicated Nutrition: diabetic diet DVT prophylaxis: subq heparin, oob, ambulation Rehab PT eval Daily PT Dispo: continues to require inpatient care. Full Code. Minutes to complete discharge: 35 Discharge Summary Reason For Visit: AMS UTI HYPERGLYCEMIA (ECOLI ESBL) Current Active Problems Bladder mass (Acute) CAD (coronary artery disease) (Acute) Chronic constipation (Acute) Diabetes type 2, uncontrolled (Acute) Hyperglycemia (Acute) TIA (transient ischemic attack) (Acute) UTI (lower urinary tract infection) (Acute) UTI (urinary tract infection) (Acute) Urinary retention (Acute) Altered mental status (Chronic) - Instructions Referrals: STAFF,NOT ON [Non Staff, Medical] - - Home Medications Comprehensive Discharge Medication List: Ambulatory Orders Clopidogrel Bisulfate [Plavix -] 75 mg PO DAILY 12/23/15 Duloxetine HCl 20 mg PO DAILY 12/23/15 Ferrous Sulfate 325 mg PO DAILY 12/23/15 Isosorbide Mononitrate [Imdur -] 90 mg PO DAILY 12/23/15 Metformin HCl 850 mg PO BID 12/23/15 Polyethylene Glycol 3350 [Miralax 119 gm Btl -] 17 gm PO TID 12/23/15 Docusate Sodium [Colace -] 100 mg PO BID #40 capsule 04/14/16 Metoprolol Succinate [Toprol XL -] 50 mg PO DAILY #21 tab.sr.24h 04/14/16 Aspirin [ASA -] 81 mg PO DAILY #30 tab.chew 08/17/16 Atorvastatin Ca [Lipitor] 20 mg PO HS #30 tablet 08/17/16 Lactobacillus Acidophilus [Bacid -] 1 each PO DAILY #30 capsule 08/17/16
[2016-10-16] MEDS ORDERED: ISOSORBIDE MONONITRATE 60 MG TAB.SR.24H (FP) PO ONE (09:45)
[2016-10-16] MEDS ORDERED: ISOSORBIDE MONONITRATE 30 MG TAB.SR.24H (FP) PO ONE (09:45)
[2016-10-16] MEDS: LACTOBACILLUS ACIDOPHILUS 1 EACH TAB (FP) PO SCH (09:51)
[2016-10-16] MEDS: ASPIRIN 81 MG CHEWABLE TABLETS PO SCH (09:51)
[2016-10-16] MEDS: HEPARIN NA (PORCINE) 5,000 UNITS/ML 1ML VIAL SQ SCH ×2 (09:52→21:39)
[2016-10-16] MEDS: DULoxetine HCL 20 MG CAPSULE.DR (FP) PO SCH (09:52)
[2016-10-16] MEDS: FERROUS SO4 325 MG TABLET (FP) PO SCH (09:52)
[2016-10-16] MEDS: ISOSORBIDE MONONITRATE 30 MG, ISOSORBIDE MONONITRATE 60 MG PO SCH (09:53)
[2016-10-16] MEDS: LISINOPRIL 5 MG TABLET (FP) PO SCH (09:53)
[2016-10-16] MEDS: METOPROLOL SUCCINATE 50 MG TAB.SR.24H (FP) PO SCH ×2 (09:53→21:46)
[2016-10-16] MEDS: CLOPIDOGREL BISULFATE 75 MG TABLET (FP) PO SCH (09:53)
[2016-10-16] MEDS ORDERED: MAGNESIUM HYDROX 2400MG/30ML ORAL SUSPENSION 30 ML CUP PO ONE (15:20)
[2016-10-16] MEDS ORDERED: LACTULOSE 20 GM/30 ML UDC (FOR ORAL USE ONLY) PO ONE (15:28)
--- NOTE | 2016-10-16 16:14 | PN ---
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, Physician History of Present Illness: stable no new events - Current Medication List Current Medications: Active Medications Acetaminophen (Tylenol -) 650 mg PO Q4H PRN PRN Reason: FEVER OR PAIN Last Admin: 10/14/16 14:40 Dose: 650 mg Aspirin (Asa -) 81 mg PO DAILY [facility] Last Admin: 10/16/16 09:51 Dose: 81 mg Atorvastatin Calcium (Lipitor -) 20 mg PO HS [facility] Last Admin: 10/15/16 21:37 Dose: 20 mg Clopidogrel Bisulfate (Plavix -) 75 mg PO DAILY [facility] Last Admin: 10/16/16 09:53 Dose: 75 mg Docusate Sodium (Colace -) 100 mg PO TID [facility] Last Admin: 10/16/16 13:46 Dose: 100 mg Duloxetine HCl (Cymbalta -) 20 mg PO DAILY [facility] Last Admin: 10/16/16 09:52 Dose: 20 mg Heparin Sodium (Porcine) (Heparin -) 5,000 unit SQ BID [facility] Last Admin: 10/16/16 09:52 Dose: 5,000 unit Insulin Aspart (Novolog Vial Sliding Scale -) 1 vial SQ ACHS [facility] PRN Reason: Protocol Last Admin: 10/16/16 12:04 Dose: 2 units Isosorbide Mononitrate 30 mg/ (Isosorbide Mononitrate 60 mg) 90 mg PO DAILY [facility] Last Admin: 10/16/16 09:53 Dose: 90 mg Lactobacillus Acidophilus (Bacid -) 1 tab PO DAILY [facility] Last Admin: 10/16/16 09:51 Dose: 1 tab Lisinopril (Prinivil) 5 mg PO DAILY [facility] Last Admin: 10/16/16 09:53 Dose: 5 mg Metoprolol Succinate (Toprol Xl -) 50 mg PO BID [facility] Last Admin: 10/16/16 09:53 Dose: 50 mg Polyethylene Glycol (Miralax (For Daily Use) -) 17 gm PO TID [facility] Last Admin: 10/16/16 13:46 Dose: 17 gm - Objective Vital Signs: Vital Signs Temperature 98.7 F 10/16/16 15:53 Pulse Rate 90 10/16/16 15:53 Respiratory Rate 18 10/16/16 15:53 Blood Pressure 98/55 10/16/16 15:53 O2 Sat by Pulse Oximetry (%) 98 10/16/16 09:00 Constitutional: Yes: No Distress, Calm Cardiovascular: Yes: Regular Rate and Rhythm Respiratory: Yes: Regular, CTA Bilaterally Gastrointestinal: Yes: Normal Bowel Sounds, Soft Musculoskeletal: Yes: WNL Extremities: Yes: WNL Neurological: Yes: Alert Labs: CBC, BMP 10/15/16 06:00 10/15/16 06:00 INR, PTT INR 1.03 (0.82-1.09) 10/09/16 20:46 Assessment/Plan . UTI 2 constipation 3. HTN, h/o CAD 4. HLD 5. Dementia/ depression 6. DM 7.leukocytosis fever Bladder mass Code(s): N32.89 - OTHER SPECIFIED DISORDERS OF BLADDER new finding noted in the u/s urology note noted filling defect noted plan for cystoscopy plan continue current mgmt plan for cystoscopy
--- NOTE | 2016-10-16 17:48 | PN ---
Physical Exam: SUBJECTIVE: Patient seen and examined at bedside. Confused today, speech making little sense. OBJECTIVE: Vital Signs Period Temp Pulse Resp BP Sys/Iniguez Pulse Ox Last 24 Hr 98.2 F-98.7 F 79-90 18-20 98-161/55-87 98-100 GENERAL: The patient is awake, alert. A&Ox 1. HEAD: Normal with no signs of trauma. EYES: PERRL, extraocular movements intact, sclera anicteric, conjunctiva clear. No ptosis. LUNGS: Breath sounds equal, clear to auscultation bilaterally, no wheezes, no crackles, no accessory muscle use. HEART: Regular rate and rhythm, S1, S2 without murmur, rub or gallop. ABDOMEN: mild RLQ and suprapubic tenderness; no guarding, no rebound EXTREMITIES: 2+ pulses, warm, well-perfused, no edema. NEUROLOGICAL: Cranial nerves II through XII grossly intact. CBCD WBC 7.0 K/mm3 (4.0-10.0) 10/15/16 06:00 RBC 3.74 M/mm3 (3.60-5.2) 10/15/16 06:00 Hgb 10.7 GM/dL (10.7-15.3) D 10/15/16 06:00 Hct 32.8 % (32.4-45.2) 10/15/16 06:00 MCV 87.7 fl (80-96) 10/15/16 06:00 MCHC 32.6 g/dl (32.0-36.0) 10/15/16 06:00 RDW 16.4 % (11.6-15.6) H 10/15/16 06:00 Plt Count 191 K/MM3 (134-434) 10/15/16 06:00 MPV 8.6 fl (7.5-11.1) 10/15/16 06:00 CMP Sodium 138 mmol/L (136-145) 10/15/16 06:00 Potassium 4.6 mmol/L (3.5-5.1) 10/15/16 06:00 Chloride 103 mmol/L (98-107) 10/15/16 06:00 Carbon Dioxide 27 mmol/L (21-32) 10/15/16 06:00 Anion Gap 8 (8-16) 10/15/16 06:00 BUN 23 mg/dL (7-18) H 10/15/16 06:00 Creatinine 0.7 mg/dL (0.55-1.02) 10/15/16 06:00 Creat Clearance w eGFR > 60 (>60) 10/15/16 06:00 Calcium 9.0 mg/dL (8.5-10.1) 10/15/16 06:00 Total Bilirubin 0.3 mg/dL (0.2-1.0) D 10/15/16 06:00 AST 10 U/L (15-37) L 10/15/16 06:00 ALT 11 U/L (12-78) L D 10/15/16 06:00 Alkaline Phosphatase 48 U/L (45-117) 10/15/16 06:00 Total Protein 6.7 g/dl (6.4-8.2) 10/15/16 06:00 Albumin 3.3 g/dl (3.4-5.0) L D 10/15/16 06:00 Active Medications Generic Name Dose Route Start Last Admin Trade Name Freq PRN Reason Stop Dose Admin Acetaminophen 650 mg 10/12/16 17:22 10/14/16 14:40 Tylenol - PO 650 mg Q4H PRN Administration FEVER OR PAIN Aspirin 81 mg 10/10/16 10:00 10/16/16 09:51 Asa - PO 81 mg DAILY [facility] Administration Atorvastatin Calcium 20 mg 10/10/16 22:00 10/15/16 21:37 Lipitor - PO 20 mg HS [facility] Administration Clopidogrel Bisulfate 75 mg 10/10/16 10:00 10/16/16 09:53 Plavix - PO 75 mg DAILY [facility] Administration Docusate Sodium 100 mg 10/15/16 14:00 10/16/16 13:46 Colace - PO 100 mg TID [facility] Administration Duloxetine HCl 20 mg 10/10/16 10:00 10/16/16 09:52 Cymbalta - PO 20 mg DAILY [facility] Administration Heparin Sodium (Porcine) 5,000 unit 10/10/16 10:00 10/16/16 09:52 Heparin - SQ 5,000 unit BID [facility] Administration Insulin Aspart 1 vial 10/10/16 07:00 10/16/16 17:13 Novolog Vial Sliding Scale - SQ Not Given ACHS [facility] Protocol Isosorbide Mononitrate 30 mg/ 90 mg 10/10/16 10:00 10/16/16 09:53 Isosorbide Mononitrate 60 mg PO 90 mg DAILY [facility] Administration Lactobacillus Acidophilus 1 tab 10/10/16 10:00 10/16/16 09:51 Bacid - PO 1 tab DAILY [facility] Administration Lisinopril 5 mg 10/16/16 10:00 10/16/16 09:53 Prinivil PO 5 mg DAILY [facility] Administration Metoprolol Succinate 50 mg 10/11/16 22:00 10/16/16 09:53 Toprol Xl - PO 50 mg BID [facility] Administration Polyethylene Glycol 17 gm 10/10/16 06:00 10/16/16 13:46 Miralax (For Daily Use) - PO 17 gm TID [facility] Administration Imaging 10/13 US bladder: 5.5 x 2cm nonmobile masslike density/layering in urinary bladder, mass v. debris/blood clots 10/14 CTAP w/contrast: 2 filling defects in bladder: 3.5 x 1.5 x 1.8cm and 2.4 x 2.4 x 2.2cm, blood clots v. urinary sediment v. neoplastic process; large amount of retained stool, fecal impaction within the rectum ASSESSMENT/PLAN 86 year-old woman with a PMH of HTN, HLD, CAD s/p CABG, CVA, DM, dementia and recurrent UTIs. Admitted for severe sepsis secondary to UTI. Now with two masses in bladder and fecal impaction. Severe sepsis secondary to UTI, resolved Lactic acidosis, resolved --afebrile, no leukocytosis --completed levaquin (10/09), Zosyn (10/10), Ertapenem (10/10-->10/14); antibiotics finished Metabolic encephalopathy secondary to UTI, resolved Urinary retention, resolved Bladder masses --two masses in bladder, blood clots v. urinary sediment v. neoplastic process; may explain previous episodes of urinary retention --seen and evaluated by urology; should follow up as outpatient; daughter advised CAD s/p CABG --continue Toprol XL, Lipitor, Isosorbide, ASA, Plavix Hypertension --BP remains elevated; add lisinopril 20mg Hyperlipidemia --continue Lipitor NIDDM --Novolog sliding scale coverage Chronic constipation --add lactulose today to bowel regimen --ADRIANNE Kwon states she has done two digital exams, no stool in vault, stool distally is soft; if no BM tonight get KUB in am F/E/N Fluids: PO intake adequate Electrolytes: replete as indicated Nutrition: diabetic diet DVT prophylaxis: subq heparin, oob, ambulation Rehab PT eval Daily PT Dispo: continues to require inpatient care. Full Code. Visit type - Emergency Visit Emergency Visit: Yes ED Registration Date: 10/10/16 Care time: The patient presented to the Emergency Department on the above date and was hospitalized for further evaluation of their emergent condition. - New Patient This patient is new to me today: No - Critical Care Critical Care patient: No
[2016-10-16] MEDS: ATORVASTATIN CA 20 MG TABLET (FP) PO SCH (21:40)
[2016-10-17] MEDS ORDERED: LACTULOSE 20 GM/30 ML UDC (FOR ORAL USE ONLY) PO ONE (06:00)
[2016-10-17] MEDS: DOCUSATE SODIUM 100 MG CAPSULE (FP) PO SCH ×2 (06:29→14:09)
[2016-10-17] MEDS: INSULIN SLIDING SCALE (NOVOLOG) 1 VIAL SQ SCH ×4 (06:29→21:16)
[2016-10-17] MEDS: POLYETHYLENE GLYCOL 3350 119 GM BTL PO SCH ×2 (06:29→14:09)
[2016-10-17] MEDS ORDERED: LACTULOSE 20 GM/30 ML UDC (FOR ORAL USE ONLY) PO PRN (09:37)
--- NOTE | 2016-10-17 09:40 | PN ---
Physical Exam: SUBJECTIVE: Patient seen and examined at bedside. Responsive, interacts. OBJECTIVE: Vital Signs Period Temp Pulse Resp BP Sys/Iniguez Pulse Ox Last 24 Hr 98.1 F-99.1 F 72-90 18-20 98-156/55-83 98 GENERAL: The patient is awake, alert. A&Ox 1. HEAD: Normal with no signs of trauma. EYES: PERRL, extraocular movements intact, sclera anicteric, conjunctiva clear. No ptosis. LUNGS: Breath sounds equal, clear to auscultation bilaterally, no wheezes, no crackles, no accessory muscle use. HEART: Regular rate and rhythm, S1, S2 without murmur, rub or gallop. ABDOMEN: mild RLQ and suprapubic tenderness; no guarding, no rebound EXTREMITIES: 2+ pulses, warm, well-perfused, no edema. NEUROLOGICAL: Cranial nerves II through XII grossly intact. CBCD WBC 7.0 K/mm3 (4.0-10.0) 10/15/16 06:00 RBC 3.74 M/mm3 (3.60-5.2) 10/15/16 06:00 Hgb 10.7 GM/dL (10.7-15.3) D 10/15/16 06:00 Hct 32.8 % (32.4-45.2) 10/15/16 06:00 MCV 87.7 fl (80-96) 10/15/16 06:00 MCHC 32.6 g/dl (32.0-36.0) 10/15/16 06:00 RDW 16.4 % (11.6-15.6) H 10/15/16 06:00 Plt Count 191 K/MM3 (134-434) 10/15/16 06:00 MPV 8.6 fl (7.5-11.1) 10/15/16 06:00 CMP Sodium 138 mmol/L (136-145) 10/15/16 06:00 Potassium 4.6 mmol/L (3.5-5.1) 10/15/16 06:00 Chloride 103 mmol/L (98-107) 10/15/16 06:00 Carbon Dioxide 27 mmol/L (21-32) 10/15/16 06:00 Anion Gap 8 (8-16) 10/15/16 06:00 BUN 23 mg/dL (7-18) H 10/15/16 06:00 Creatinine 0.7 mg/dL (0.55-1.02) 10/15/16 06:00 Creat Clearance w eGFR > 60 (>60) 10/15/16 06:00 Calcium 9.0 mg/dL (8.5-10.1) 10/15/16 06:00 Total Bilirubin 0.3 mg/dL (0.2-1.0) D 10/15/16 06:00 AST 10 U/L (15-37) L 10/15/16 06:00 ALT 11 U/L (12-78) L D 10/15/16 06:00 Alkaline Phosphatase 48 U/L (45-117) 10/15/16 06:00 Total Protein 6.7 g/dl (6.4-8.2) 10/15/16 06:00 Albumin 3.3 g/dl (3.4-5.0) L D 10/15/16 06:00 Active Medications Generic Name Dose Route Start Last Admin Trade Name Freq PRN Reason Stop Dose Admin Acetaminophen 650 mg 10/12/16 17:22 10/14/16 14:40 Tylenol - PO 650 mg Q4H PRN Administration FEVER OR PAIN Aspirin 81 mg 10/10/16 10:00 10/16/16 09:51 Asa - PO 81 mg DAILY SEAN Administration Atorvastatin Calcium 20 mg 10/10/16 22:00 10/16/16 21:40 Lipitor - PO 20 mg HS SEAN Administration Clopidogrel Bisulfate 75 mg 10/10/16 10:00 10/16/16 09:53 Plavix - PO 75 mg DAILY SEAN Administration Docusate Sodium 100 mg 10/15/16 14:00 10/17/16 06:29 Colace - PO 100 mg TID SEAN Administration Duloxetine HCl 20 mg 10/10/16 10:00 10/16/16 09:52 Cymbalta - PO 20 mg DAILY SEAN Administration Heparin Sodium (Porcine) 5,000 unit 10/10/16 10:00 10/16/16 21:39 Heparin - SQ 5,000 unit BID SEAN Administration Insulin Aspart 1 vial 10/10/16 07:00 10/17/16 06:29 Novolog Vial Sliding Scale - SQ Not Given [facility] Protocol Isosorbide Mononitrate 30 mg/ 90 mg 10/10/16 10:00 10/16/16 09:53 Isosorbide Mononitrate 60 mg PO 90 mg DAILY SEAN Administration Lactobacillus Acidophilus 1 tab 10/10/16 10:00 10/16/16 09:51 Bacid - PO 1 tab DAILY SEAN Administration Lactulose 20 gm 10/17/16 09:37 Cephulac (Oral Use) PO TID PRN CONSTIPATION Lisinopril 5 mg 10/16/16 10:00 10/16/16 09:53 Prinivil PO 5 mg DAILY SEAN Administration Metoprolol Succinate 50 mg 10/11/16 22:00 10/16/16 21:46 Toprol Xl - PO 50 mg BID SEAN Administration Polyethylene Glycol 17 gm 10/10/16 06:00 10/17/16 06:29 Miralax (For Daily Use) - PO 17 gm TID SEAN Administration Imaging 10/13 US bladder: 5.5 x 2cm nonmobile masslike density/layering in urinary bladder, mass v. debris/blood clots 10/14 CTAP w/contrast: 2 filling defects in bladder: 3.5 x 1.5 x 1.8cm and 2.4 x 2.4 x 2.2cm, blood clots v. urinary sediment v. neoplastic process; large amount of retained stool, fecal impaction within the rectum ASSESSMENT/PLAN 86 year-old woman with a PMH of HTN, HLD, CAD s/p CABG, CVA, DM, dementia and recurrent UTIs. Admitted for severe sepsis secondary to UTI. Severe sepsis secondary to UTI, resolved Lactic acidosis, resolved --afebrile, no leukocytosis --completed levaquin (10/09), Zosyn (10/10), Ertapenem (10/10-->10/14); antibiotics finished Metabolic encephalopathy secondary to UTI, resolved Urinary retention, resolved Bladder masses --two masses in bladder, blood clots v. urinary sediment v. neoplastic process; may explain previous episodes of urinary retention --seen and evaluated by urology; should follow up as outpatient; daughter advised CAD s/p CABG --continue Toprol XL, Lipitor, Isosorbide, ASA, Plavix Hypertension --BP remains elevated; added lisinopril 10mg Hyperlipidemia --continue Lipitor NIDDM --Novolog sliding scale coverage Chronic constipation --still without BM --RN Bautista Kwon states she has done two digital exams, no stool in vault, stool distally is soft --KUB ordered --increase lactulose TID, colace, miralax TID F/E/N Fluids: PO intake adequate Electrolytes: replete as indicated Nutrition: diabetic diet DVT prophylaxis: subq heparin, oob, ambulation Rehab PT eval Daily PT Dispo: continues to require inpatient care. Full Code. Visit type - Emergency Visit Emergency Visit: Yes ED Registration Date: 10/10/16 Care time: The patient presented to the Emergency Department on the above date and was hospitalized for further evaluation of their emergent condition. - New Patient This patient is new to me today: No - Critical Care Critical Care patient: No
[2016-10-17] MEDS ORDERED: ISOSORBIDE MONONITRATE 60 MG TAB.SR.24H (FP) PO ONE (10:11)
[2016-10-17] MEDS ORDERED: ISOSORBIDE MONONITRATE 30 MG TAB.SR.24H (FP) PO ONE (10:11)
[2016-10-17] MEDS ORDERED: PT OWN MED DRAWER 7, Y5N ONE (10:12)
[2016-10-17] MEDS: LISINOPRIL 5 MG TABLET (FP) PO SCH (10:17)
[2016-10-17] MEDS: CLOPIDOGREL BISULFATE 75 MG TABLET (FP) PO SCH (10:18)
[2016-10-17] MEDS: LACTOBACILLUS ACIDOPHILUS 1 EACH TAB (FP) PO SCH (10:18)
[2016-10-17] MEDS: DULoxetine HCL 20 MG CAPSULE.DR (FP) PO SCH (10:19)
[2016-10-17] MEDS: ISOSORBIDE MONONITRATE 30 MG, ISOSORBIDE MONONITRATE 60 MG PO SCH (10:19)
[2016-10-17] MEDS: METOPROLOL SUCCINATE 50 MG TAB.SR.24H (FP) PO SCH ×2 (10:19→21:16)
[2016-10-17] MEDS: HEPARIN NA (PORCINE) 5,000 UNITS/ML 1ML VIAL SQ SCH ×2 (10:19→21:15)
[2016-10-17] MEDS: ASPIRIN 81 MG CHEWABLE TABLETS PO SCH (10:19)
--- NOTE | 2016-10-17 11:11 | PN ---
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, Physician History of Present Illness: stable no new events patient having no bm - Current Medication List Current Medications: Active Medications Acetaminophen (Tylenol -) 650 mg PO Q4H PRN PRN Reason: FEVER OR PAIN Last Admin: 10/14/16 14:40 Dose: 650 mg Aspirin (Asa -) 81 mg PO DAILY [facility] Last Admin: 10/17/16 10:19 Dose: 81 mg Atorvastatin Calcium (Lipitor -) 20 mg PO HS [facility] Last Admin: 10/16/16 21:40 Dose: 20 mg Clopidogrel Bisulfate (Plavix -) 75 mg PO DAILY [facility] Last Admin: 10/17/16 10:18 Dose: 75 mg Docusate Sodium (Colace -) 100 mg PO TID [facility] Last Admin: 10/17/16 06:29 Dose: 100 mg Duloxetine HCl (Cymbalta -) 20 mg PO DAILY [facility] Last Admin: 10/17/16 10:19 Dose: 20 mg Heparin Sodium (Porcine) (Heparin -) 5,000 unit SQ BID [facility] Last Admin: 10/17/16 10:19 Dose: 5,000 unit Insulin Aspart (Novolog Vial Sliding Scale -) 1 vial SQ ACHS [facility] PRN Reason: Protocol Last Admin: 10/17/16 06:29 Dose: Not Given Isosorbide Mononitrate 30 mg/ (Isosorbide Mononitrate 60 mg) 90 mg PO DAILY [facility] Last Admin: 10/17/16 10:19 Dose: 90 mg Lactobacillus Acidophilus (Bacid -) 1 tab PO DAILY [facility] Last Admin: 10/17/16 10:18 Dose: 1 tab Lactulose (Cephulac (Oral Use)) 20 gm PO TID PRN PRN Reason: CONSTIPATION Lisinopril (Prinivil) 5 mg PO DAILY [facility] Last Admin: 10/17/16 10:17 Dose: 5 mg Metoprolol Succinate (Toprol Xl -) 50 mg PO BID [facility] Last Admin: 10/17/16 10:19 Dose: 50 mg Polyethylene Glycol (Miralax (For Daily Use) -) 17 gm PO TID [facility] Last Admin: 10/17/16 06:29 Dose: 17 gm - Objective Vital Signs: Vital Signs Temperature 98.1 F 10/17/16 06:00 Pulse Rate 72 10/17/16 06:00 Respiratory Rate 20 10/17/16 06:00 Blood Pressure 156/83 10/17/16 06:00 O2 Sat by Pulse Oximetry (%) 98 10/16/16 21:00 Constitutional: Yes: No Distress, Calm Cardiovascular: Yes: Regular Rate and Rhythm Respiratory: Yes: Regular, CTA Bilaterally Gastrointestinal: Yes: Normal Bowel Sounds, Soft, Hypoactive Bowel Sounds Musculoskeletal: Yes: WNL Extremities: Yes: WNL Neurological: Yes: Alert Psychiatric: Yes: Alert Labs: CBC, BMP 10/15/16 06:00 10/15/16 06:00 INR, PTT INR 1.03 (0.82-1.09) 10/09/16 20:46 Assessment/Plan . UTI 2 constipation 3. HTN, h/o CAD 4. HLD 5. Dementia/ depression 6. DM 7.leukocytosis fever Bladder mass Code(s): N32.89 - OTHER SPECIFIED DISORDERS OF BLADDER kub with fecal retention plan continue current mgmt needs to be evacuated patient is having lot of feces
[2016-10-17] MEDS ORDERED: PEG3350/SOD SULF,BICARB,CL/KCL 4,000 ML SOLN.RECON PO ONE (18:43)
[2016-10-17] MEDS: ATORVASTATIN CA 20 MG TABLET (FP) PO SCH (21:16)
[2016-10-18] MEDS: INSULIN SLIDING SCALE (NOVOLOG) 1 VIAL SQ SCH ×4 (06:13→22:26)
[2016-10-18 08:21] LABS: BASOPHIL 0.4 % (0-2.0); EOSINOPHIL 2.9 % (0-4.5); MCH 29.4 pg (25.7-33.7); MCHC 33.1 g/dl (32.0-36.0); MEAN CELL VOLUME 88.6 fl (80-96); MEAN PLT VOLUME 8.3 fl (7.5-11.1); NEUTROPHILS 66.6 % (42.8-82.8); PLATELET COUNT 193 K/MM3 (134-434); RDW 16.4 % (11.6-15.6); WHITE BLOOD COUNT 7.2 K/mm3 (4.0-10.0)
[2016-10-18 08:52] LABS: BILIRUBIN,TOTAL 0.4 mg/dL (0.2-1.0); CALCIUM 8.8 mg/dL (8.5-10.1); CREATININE 0.9 mg/dL (0.55-1.02); MAGNESIUM 2.3 mg/dL (1.8-2.4); TOT PROT 6.6 g/dl (6.4-8.2)
[2016-10-18] MEDS ORDERED: ISOSORBIDE MONONITRATE 60 MG TAB.SR.24H (FP) PO ONE (10:31)
[2016-10-18] MEDS ORDERED: ISOSORBIDE MONONITRATE 30 MG TAB.SR.24H (FP) PO ONE (10:31)
[2016-10-18] MEDS ORDERED: PT OWN MED DRAWER 7, Y5N ONE (10:33)
[2016-10-18] MEDS: DULoxetine HCL 20 MG CAPSULE.DR (FP) PO SCH (10:39)
[2016-10-18] MEDS: LACTOBACILLUS ACIDOPHILUS 1 EACH TAB (FP) PO SCH (10:39)
[2016-10-18] MEDS: ISOSORBIDE MONONITRATE 30 MG, ISOSORBIDE MONONITRATE 60 MG PO SCH (10:40)
[2016-10-18] MEDS: LISINOPRIL 5 MG TABLET (FP) PO SCH (10:40)
[2016-10-18] MEDS: METOPROLOL SUCCINATE 50 MG TAB.SR.24H (FP) PO SCH ×2 (10:40→22:20)
[2016-10-18] MEDS: HEPARIN NA (PORCINE) 5,000 UNITS/ML 1ML VIAL SQ SCH ×2 (10:40→22:20)
[2016-10-18] MEDS: ASPIRIN 81 MG CHEWABLE TABLETS PO SCH (10:40)
[2016-10-18] MEDS: CLOPIDOGREL BISULFATE 75 MG TABLET (FP) PO SCH (10:40)
--- NOTE | 2016-10-18 12:50 | PN ---
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, Physician History of Present Illness: stable no complaints had a bM after enema still probably with retention - Current Medication List Current Medications: Active Medications Acetaminophen (Tylenol -) 650 mg PO Q4H PRN PRN Reason: FEVER OR PAIN Last Admin: 10/14/16 14:40 Dose: 650 mg Aspirin (Asa -) 81 mg PO DAILY [facility] Last Admin: 10/18/16 10:40 Dose: 81 mg Atorvastatin Calcium (Lipitor -) 20 mg PO HS [facility] Last Admin: 10/17/16 21:16 Dose: 20 mg Clopidogrel Bisulfate (Plavix -) 75 mg PO DAILY [facility] Last Admin: 10/18/16 10:40 Dose: 75 mg Docusate Sodium (Colace -) 100 mg PO TID [facility] Last Admin: 10/17/16 14:09 Dose: 100 mg Duloxetine HCl (Cymbalta -) 20 mg PO DAILY [facility] Last Admin: 10/18/16 10:39 Dose: 20 mg Heparin Sodium (Porcine) (Heparin -) 5,000 unit SQ BID [facility] Last Admin: 10/18/16 10:40 Dose: 5,000 unit Sodium Chloride (Normal Saline -) 1,000 mls @ 75 mls/hr IV ASDIR [facility] Insulin Aspart (Novolog Vial Sliding Scale -) 1 vial SQ ACHS [facility] PRN Reason: Protocol Last Admin: 10/18/16 06:13 Dose: Not Given Isosorbide Mononitrate 30 mg/ (Isosorbide Mononitrate 60 mg) 90 mg PO DAILY [facility] Last Admin: 10/18/16 10:40 Dose: 90 mg Lactobacillus Acidophilus (Bacid -) 1 tab PO DAILY [facility] Last Admin: 10/18/16 10:39 Dose: 1 tab Lisinopril (Prinivil) 5 mg PO DAILY [facility] Last Admin: 10/18/16 10:40 Dose: 5 mg Metoprolol Succinate (Toprol Xl -) 50 mg PO BID [facility] Last Admin: 10/18/16 10:40 Dose: 50 mg Polyethylene Glycol (Miralax (For Daily Use) -) 17 gm PO TID [facility] Last Admin: 10/17/16 14:09 Dose: 17 gm - Objective Vital Signs: Vital Signs Temperature 98.8 F 10/18/16 06:00 Pulse Rate 66 10/18/16 06:00 Respiratory Rate 20 10/18/16 06:00 Blood Pressure 148/77 10/18/16 06:00 O2 Sat by Pulse Oximetry (%) 98 10/17/16 21:00 Constitutional: Yes: No Distress, Calm Cardiovascular: Yes: Regular Rate and Rhythm Respiratory: Yes: Regular, CTA Bilaterally Gastrointestinal: Yes: Normal Bowel Sounds, Soft Extremities: Yes: WNL Neurological: Yes: Alert, Oriented Psychiatric: Yes: Alert Labs: CBC, BMP 10/18/16 08:10 10/18/16 06:20 INR, PTT INR 1.03 (0.82-1.09) 10/09/16 20:46 Assessment/Plan . UTI 2 constipation 3. HTN, h/o CAD 4. HLD 5. Dementia/ depression 6. DM 7.leukocytosis fever Bladder mass Code(s): N32.89 - OTHER SPECIFIED DISORDERS OF BLADDER kub with fecal retention plan continue current mgmt continue enemas
[2016-10-18] MEDS: SODIUM CHLORIDE 1,000 ML IV SCH (13:12)
--- NOTE | 2016-10-18 13:42 | DS ---
Physical Exam: SUBJECTIVE: Patient seen and examined OBJECTIVE: Vital Signs Period Temp Pulse Resp BP Sys/Iniguez Pulse Ox Last 24 Hr 98.1 F-98.8 F 66-78 20-20 107-148/58-77 98 PHYSICAL EXAM GENERAL: The patient is awake, alert. A&Ox 1. HEAD: Normal with no signs of trauma. EYES: PERRL, extraocular movements intact, sclera anicteric, conjunctiva clear. No ptosis. LUNGS: Breath sounds equal, clear to auscultation bilaterally, no wheezes, no crackles, no accessory muscle use. HEART: Regular rate and rhythm, S1, S2 without murmur, rub or gallop. ABDOMEN: mild RLQ and suprapubic tenderness; no guarding, no rebound EXTREMITIES: 2+ pulses, warm, well-perfused, no edema. NEUROLOGICAL: Cranial nerves II through XII grossly intact. LABS Laboratory Results - last 24 hr 10/17/16 10/17/16 10/18/16 17:23 21:15 05:58 WBC RBC Hgb Hct MCV MCHC RDW Plt Count MPV Neutrophils % Lymphocytes % Monocytes % Eosinophils % Basophils % Sodium Potassium Chloride Carbon Dioxide Anion Gap BUN Creatinine Creat Clearance w eGFR POC Glucometer 154 98 119 Random Glucose Calcium Magnesium Total Bilirubin AST ALT Alkaline Phosphatase Total Protein Albumin 10/18/16 10/18/16 06:20 08:10 WBC 7.2 RBC 3.74 Hgb 11.0 Hct 33.1 MCV 88.6 MCHC 33.1 RDW 16.4 H Plt Count 193 MPV 8.3 Neutrophils % 66.6 Lymphocytes % 19.4 D Monocytes % 10.7 H Eosinophils % 2.9 Basophils % 0.4 D Sodium 140 Potassium 5.9 H D Chloride 106 Carbon Dioxide 27 Anion Gap 7 L BUN 25 H Creatinine 0.9 D Creat Clearance w eGFR 59.37 POC Glucometer Random Glucose 111 H Calcium 8.8 Magnesium 2.3 D Total Bilirubin 0.4 D AST 24 D ALT 15 D Alkaline Phosphatase 49 Total Protein 6.6 Albumin 3.0 L HOSPITAL COURSE: Date of Admission:10/10/16 Date of Discharge: 10/18/16 Imaging 10/13 US bladder: 5.5 x 2cm nonmobile masslike density/layering in urinary bladder, mass v. debris/blood clots 10/14 CTAP w/contrast: 2 filling defects in bladder: 3.5 x 1.5 x 1.8cm and 2.4 x 2.4 x 2.2cm, blood clots v. urinary sediment v. neoplastic process; large amount of retained stool, fecal impaction within the rectum ASSESSMENT/PLAN 86 year-old woman with a PMH of HTN, HLD, CAD s/p CABG, CVA, DM, dementia and recurrent UTIs. Admitted for severe sepsis secondary to UTI. Severe sepsis secondary to UTI, resolved Lactic acidosis, resolved --afebrile, no leukocytosis --completed levaquin (10/09), Zosyn (10/10), Ertapenem (10/10-->10/14); antibiotics finished Metabolic encephalopathy secondary to UTI, resolved Urinary retention, resolved Bladder masses --two masses in bladder, blood clots v. urinary sediment v. neoplastic process; may explain previous episodes of urinary retention --seen and evaluated by urology; should follow up as outpatient; daughter advised CAD s/p CABG --continue Toprol XL, Lipitor, Isosorbide, ASA, Plavix Hypertension --BP remains elevated; added lisinopril 10mg Hyperlipidemia --continue Lipitor NIDDM --Novolog sliding scale coverage Chronic constipation --several days without BM; Miralax, colace, lactulose to no effect; gave 1/2 dose Go Litely with large soft BM Minutes to complete discharge: 35 Discharge Summary Reason For Visit: AMS UTI HYPERGLYCEMIA (ECOLI ESBL) Current Active Problems Bladder mass (Acute) CAD (coronary artery disease) (Acute) Chronic constipation (Acute) Diabetes type 2, uncontrolled (Acute) Hyperglycemia (Acute) TIA (transient ischemic attack) (Acute) UTI (lower urinary tract infection) (Acute) UTI (urinary tract infection) (Acute) Urinary retention (Acute) Altered mental status (Chronic) Condition: Improved - Instructions Diet, Activity, Other Instructions: Your blood pressure was consistently elevated during your hospital stay. Your dose of metoprolol was therefore increased from once a day to twice a day. A prescription has been sent to your pharmacy. You should follow up with your primary care provider, or with a visiting nurse, to have your blood pressure checked. Referrals: Nisa Lyons MD [Primary Care Provider] - STAFF,NOT ON [Non Staff, Medical] - Disposition: HOME - Home Medications Comprehensive Discharge Medication List: Ambulatory Orders Clopidogrel Bisulfate [Plavix -] 75 mg PO DAILY 12/23/15 Duloxetine HCl 20 mg PO DAILY 12/23/15 Ferrous Sulfate 325 mg PO DAILY 12/23/15 Isosorbide Mononitrate [Imdur -] 90 mg PO DAILY 12/23/15 Metformin HCl 850 mg PO BID 12/23/15 Polyethylene Glycol 3350 [Miralax 119 gm Btl -] 17 gm PO TID 12/23/15 Docusate Sodium [Colace -] 100 mg PO BID #40 capsule 04/14/16 Metoprolol Succinate [Toprol XL -] 50 mg PO DAILY #21 tab.sr.24h 04/14/16 Aspirin [ASA -] 81 mg PO DAILY #30 tab.chew 08/17/16 Atorvastatin Ca [Lipitor] 20 mg PO HS #30 tablet 08/17/16 Lactobacillus Acidophilus [Bacid -] 1 each PO DAILY #30 capsule 08/17/16 Metoprolol Succinate [Toprol XL -] 50 mg PO BID #60 tab.sr.24h 10/16/16 This patient is new to me today: No Emergency Visit: Yes ED Registration Date: 10/10/16 Care time: The patient presented to the Emergency Department on the above date and was hospitalized for further evaluation of their emergent condition. Critical Care patient: No - Discharge Referral Referred to [facility] No
[2016-10-18] MEDS: ATORVASTATIN CA 20 MG TABLET (FP) PO SCH (22:20)
[2016-10-19] MEDS: SODIUM CHLORIDE 1,000 ML IV SCH ×2 (02:18→11:23)
[2016-10-19] MEDS: INSULIN SLIDING SCALE (NOVOLOG) 1 VIAL SQ SCH ×2 (06:21→11:23)
[2016-10-19] MEDS ORDERED: ISOSORBIDE MONONITRATE 60 MG TAB.SR.24H (FP) PO ONE (10:29)
[2016-10-19] MEDS ORDERED: ISOSORBIDE MONONITRATE 30 MG TAB.SR.24H (FP) PO ONE (10:30)
[2016-10-19] MEDS: ISOSORBIDE MONONITRATE 30 MG, ISOSORBIDE MONONITRATE 60 MG PO SCH (10:38)
[2016-10-19] MEDS: HEPARIN NA (PORCINE) 5,000 UNITS/ML 1ML VIAL SQ SCH (10:38)
[2016-10-19] MEDS: CLOPIDOGREL BISULFATE 75 MG TABLET (FP) PO SCH (10:38)
[2016-10-19] MEDS: LACTOBACILLUS ACIDOPHILUS 1 EACH TAB (FP) PO SCH (10:38)
[2016-10-19] MEDS: DULoxetine HCL 20 MG CAPSULE.DR (FP) PO SCH (10:39)
[2016-10-19] MEDS: LISINOPRIL 5 MG TABLET (FP) PO SCH (10:39)
[2016-10-19] MEDS: ASPIRIN 81 MG CHEWABLE TABLETS PO SCH (10:39)
[2016-10-19] MEDS: METOPROLOL SUCCINATE 50 MG TAB.SR.24H (FP) PO SCH (10:39)
[2016-10-19 10:51] VITALS: BP 135/60; PULSE 76; TEMP 98.5
--- NOTE | 2016-10-19 13:34 | PN ---
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, Physician History of Present Illness: stable no complaints had a bM after enema still probably with retention - Objective Vital Signs: Vital Signs Temperature 98.5 F 10/19/16 10:00 Pulse Rate 76 10/19/16 10:00 Respiratory Rate 18 10/19/16 10:00 Blood Pressure 135/60 10/19/16 10:00 O2 Sat by Pulse Oximetry (%) 98 10/19/16 09:00 Constitutional: Yes: No Distress, Calm Cardiovascular: Yes: Regular Rate and Rhythm Respiratory: Yes: Regular, CTA Bilaterally Musculoskeletal: Yes: WNL Extremities: Yes: WNL Neurological: Yes: Alert Psychiatric: Yes: Alert Labs: CBC, BMP 10/18/16 08:10 10/18/16 06:20 INR, PTT INR 1.03 (0.82-1.09) 10/09/16 20:46 Assessment/Plan . UTI 2 constipation 3. HTN, h/o CAD 4. HLD 5. Dementia/ depression 6. DM 7.leukocytosis fever Bladder mass Code(s): N32.89 - OTHER SPECIFIED DISORDERS OF BLADDER kub with fecal retention plan continue current mgmt patient stable
== END 2016-10-19 11:54 | disposition home or self-care (01) | DRG 871 ==
LOC: JER 19:09 → JERBED 10-10 02:09 → UNDOADMIN 10-10 02:21 → JERBED 10-10 02:21 → J8W 10-10 14:29
PROVIDERS: ADMIT Internal Medicine; ATTEND Nurse Practitioner Acute Care
DX: A41.89 Other specified sepsis (principal); G93.41 Metabolic encephalopathy; N39.0 Urinary tract infection, site not specified; E87.2 Acidosis; R65.20 Severe sepsis without septic shock; E11.65 Type 2 diabetes mellitus with hyperglycemia; F03.90 Unspecified dementia, unspecified severity, without behavioral disturbance, psychotic disturbance, mood disturbance, and anxiety; R33.8 Other retention of urine; K59.09 Other constipation; I25.10 Atherosclerotic heart disease of native coronary artery without angina pectoris; E11.319 Type 2 diabetes mellitus with unspecified diabetic retinopathy without macular edema; H40.89 Other specified glaucoma; I65.21 Occlusion and stenosis of right carotid artery; F32.9 Major depressive disorder, single episode, unspecified; N32.89 Other specified disorders of bladder; Z95.5 Presence of coronary angioplasty implant and graft; Z95.1 Presence of aortocoronary bypass graft; Z86.73 Personal history of transient ischemic attack (TIA), and cerebral infarction without residual deficits
CPT/HCPCS: 36415; 36600; 71010-TC; 74000-TC; 74177-TC; 76856-TC; 80048; 80053; 81003; 81015; 82375; 82550; 82803; 83050; 83605; 83735; 84100; 84484; 85025; 85027; 85610; 85730; 86850; 86900; 86901; 87040; 87086; 87254; 87804; 93005; 93010; 97161-GP; 99284-25; J1644

== ENCOUNTER 2017-06-05 15:26 | Inpatient (IN) | payer OTHER ==
--- NOTE | 2017-06-05 16:18 | PDOC ---
History of Present Illness - History of Present Illness Initial Comments: 06/05/17 16:57 The patient is a 86 year old female, with a significant past medical history of , who presents to the emergency department with left great toe infection noticed by the patients home health aide today. As per the SWITCHBOARD OPERATOR SUPERVISOR, the patient was having a law secretary come to the house, however, the law secretary was called and the SWITCHBOARD OPERATOR SUPERVISOR was informed to take the patient to the ED. The patient reports being admitted last month for sepsis/UTI and discharged home. She denies chest pain, shortness of breath, headache and dizziness. She denies fever, chills, nausea, vomit, diarrhea and constipation. She denies dysuria, frequency, urgency and hematuria. Allergies: quetiapine, fumarate, ranolazine PCP - Dr. Lyons <Belinda Limon - Last Filed: 06/05/17 16:57> <Jaime Carpenter - Last Filed: 06/05/17 18:17> - General Chief Complaint: Wound Infection Stated Complaint: INFECTED FOOT Time Seen by Provider: 06/05/17 15:47 Past History <Belinda Limon - Last Filed: 06/05/17 16:57> - Past Medical History Anemia: No Asthma: No Cancer: No Cardiac Disorders: Yes (angina) CVA: Yes COPD: No CHF: No Dementia: Yes Diabetes: Yes GI Disorders: Yes (Severe constipation) Disorders: Yes (Occassional UTI (12/2012)) HTN: Yes Hypercholesterolemia: Yes Liver Disease: No Seizures: No Thyroid Disease: No - Surgical History Abdominal Surgery: Yes Appendectomy: Yes Cardiac Surgery: Yes (QUAD. BYPASS, CARD STENT) Cholecystectomy: No Lung Surgery: No Neurologic Surgery: No Orthopedic Surgery: No - Immunization History Immunization Up to Date: Yes - Suicide/Smoking/Psychosocial Hx Smoking Status: No Smoking History: Unknown if ever smoked Have you smoked in the past 12 months: No Number of Cigarettes Smoked Daily: 0 Information on smoking cessation initiated: No Hx Alcohol Use: No Drug/Substance Use Hx: No Substance Use Type: None Hx Substance Use Treatment: No <Jaime Carpenter - Last Filed: 06/05/17 18:17> - Past Medical History Allergies/Adverse Reactions: Allergies Allergy/AdvReac Type Severity Reaction Status Date / Time quetiapine fumarate Allergy Severe Difficulty Verified 06/05/17 15:52 [From Seroquel] Breathing ranolazine [From Ranexa] Allergy Verified 06/05/17 15:52 Home Medications: Ambulatory Orders Clopidogrel Bisulfate [Plavix -] 75 mg PO DAILY 12/23/15 Duloxetine HCl 20 mg PO DAILY 12/23/15 Ferrous Sulfate 325 mg PO DAILY 12/23/15 Isosorbide Mononitrate [Imdur -] 90 mg PO DAILY 12/23/15 Metformin HCl 850 mg PO BID 12/23/15 Polyethylene Glycol 3350 [Miralax 119 gm Btl -] 17 gm PO TID 12/23/15 Docusate Sodium [Colace -] 100 mg PO BID #40 capsule 04/14/16 Metoprolol Succinate [Toprol XL -] 50 mg PO DAILY #21 tab.sr.24h 04/14/16 Aspirin [ASA -] 81 mg PO DAILY #30 tab.chew 08/17/16 Atorvastatin Ca [Lipitor] 20 mg PO HS #30 tablet 08/17/16 Lactobacillus Acidophilus [Bacid -] 1 each PO DAILY #30 capsule 08/17/16 Metoprolol Succinate [Toprol XL -] 50 mg PO BID #60 tab.sr.24h 10/16/16 Review of Systems - Review of Systems Able to Perform ROS?: Yes Comments:: 06/05/17 16:57 GENERAL/CONSTITUTIONAL: No fever or chills. No weakness. HEAD, EYES, EARS, NOSE AND THROAT: No change in vision. No ear pain or discharge. No sore throat. CARDIOVASCULAR: No chest pain or shortness of breath. RESPIRATORY: No cough, wheezing, or hemoptysis. GASTROINTESTINAL: No nausea, vomiting, diarrhea or constipation. GENITOURINARY: No dysuria, frequency, or change in urination. MUSCULOSKELETAL: No joint or muscle swelling or pain. No neck or back pain. SKIN: (+) left great toe infection. No rash NEUROLOGIC: No headache, vertigo, loss of consciousness, or change in strength/ sensation. ENDOCRINE: No increased thirst. No abnormal weight change. HEMATOLOGIC/LYMPHATIC: No anemia, easy bleeding, or history of blood clots. ALLERGIC/IMMUNOLOGIC: No hives or skin allergy. <Belinda Limon - Last Filed: 06/05/17 16:57> *Physical Exam - Vital Signs Last Vital Signs Temp Pulse Resp BP Pulse Ox 98.6 F 70 18 131/78 100 06/05/17 15:30 06/05/17 15:30 06/05/17 15:30 06/05/17 15:30 06/05/17 15:30 - Physical Exam Comments: GENERAL: Awake, alert, and fully oriented, in no acute distress HEAD: No signs of trauma EYES: PERRLA, EOMI, sclera anicteric, conjunctiva clear ENT: Auricles normal inspection, hearing grossly normal, nares patent, oropharynx clear without exudates. Moist mucosa NECK: Normal ROM, supple, no lymphadenopathy, JVD, or masses LUNGS: Breath sounds equal, clear to auscultation bilaterally. No wheezes, and no crackles HEART: Regular rate and rhythm, normal S1 and S2, no murmurs, rubs or gallops ABDOMEN: Soft, nontender, normoactive bowel sounds. No guarding, no rebound. No masses EXTREMITIES:(+) Paronychia to the medial surface of left great toe, drained in the ED. Normal range of motion, no edema. No clubbing or cyanosis. No cords, erythema, or tenderness NEUROLOGICAL: Cranial nerves II through XII grossly intact. Normal speech, normal gait SKIN: Warm, Dry, normal turgor, no rashes or lesions noted. <Belinda Limon - Last Filed: 06/05/17 16:57> - Vital Signs Last Vital Signs Temp Pulse Resp BP Pulse Ox 98.6 F 70 18 131/78 100 06/05/17 15:30 06/05/17 15:30 06/05/17 15:30 06/05/17 15:30 06/05/17 15:30 <Jaime Carpenter - Last Filed: 06/05/17 18:17> *DC/Admit/Observation/Transfer - Attestations Scribe Attestion: 06/05/17 16:59 Documentation prepared by Belinda Limon, acting as medical billing specialist for Jaime Carpenter DO <Belinda Limon - Last Filed: 06/05/17 16:57> - Discharge Dispostion Admit: Yes <Jaime Carpenter - Last Filed: 06/05/17 18:17> Diagnosis at time of Disposition: UTI (lower urinary tract infection), Sepsis affecting skin Osteomyelitis Qualifiers: Osteomyelitis type: unspecified type Osteomyelitis location: foot Laterality: left Qualified Code(s): M86.9 - Osteomyelitis, unspecified; M86.9 - Osteomyelitis, unspecified; M86.9 - Osteomyelitis, unspecified - Discharge Dispostion Condition at time of disposition: Improved - Referrals Referrals: Nisa Lyons MD [Primary Care Provider] -
[2017-06-05] MEDS ORDERED: SODIUM CHLORIDE 1,000 ML IV STA (16:38)
[2017-06-05] MEDS ORDERED: PIPERACILLIN/TAZOB 3.375 GM/50 ML PRE-DOCKED IV ONE (17:16)
[2017-06-05] MEDS ORDERED: VANCOMYCIN 1,000 MG in DEXTROSE 5%-WATER - 250 ML IVPB ONE (17:17)
--- NOTE | 2017-06-05 17:40 | CON.ID ---
Consult Consult Specialty:: infectious diseases Reason for Consultation:: toe infection - History of Present Illness Chief Complaint: swelling and pain in the toe History of Present Illness: 86 year old female, with a significant past medical history of, who presents to the emergency department with left great toe infection noticed by the patients home health aide today. As per the [employer]LE SEAMAN, the patient was having a automobile painter come to the house, however, the automobile painter was called and the ABLE SEAMAN was informed to take the patient to the ED. The patient reports being admitted last month for sepsis/UTI and discharged home. She denies chest pain, shortness of breath, headache and dizziness. She denies fever, chills, nausea, vomit, diarrhea and constipation. She denies dysuria, frequency, urgency and hematuria. 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 ) Cardio/Vascular: Yes: CAD, HTN, Hyperlipdemia, Other (ASHD, CABG) Gastrointestinal: Yes: Constipation Renal/: Yes: Renal Inusuff (New renal insufficiency) Endocrine: Yes: Diabetes Mellitus - Past Surgical History Past Surgical History: Yes: Appendectomy, CABG - Alcohol/Substance Use Hx Alcohol Use: No History of Substance Use: reports: None - Smoking History Smoking history: Unknown if ever smoked Have you smoked in the past 12 months: No Aproximately how many cigarettes per day: 0 - Social History Usual Living Arrangement: Alone 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, needs help to eat History of Recent Travel: No Home Medications - Allergies Allergies/Adverse Reactions: Allergies Allergy/AdvReac Type Severity Reaction Status Date / Time quetiapine fumarate Allergy Severe Difficulty Verified 06/05/17 15:52 [From Seroquel] Breathing ranolazine [From Ranexa] Allergy Verified 06/05/17 15:52 - Home Medications Home Medications: Ambulatory Orders Clopidogrel Bisulfate [Plavix -] 75 mg PO DAILY 12/23/15 Duloxetine HCl 20 mg PO DAILY 12/23/15 Ferrous Sulfate 325 mg PO DAILY 12/23/15 Isosorbide Mononitrate [Imdur -] 90 mg PO DAILY 12/23/15 Metformin HCl 850 mg PO BID 12/23/15 Polyethylene Glycol 3350 [Miralax 119 gm Btl -] 17 gm PO TID 12/23/15 Docusate Sodium [Colace -] 100 mg PO BID #40 capsule 04/14/16 Metoprolol Succinate [Toprol XL -] 50 mg PO DAILY #21 tab.sr.24h 04/14/16 Atorvastatin Ca [Lipitor] 20 mg PO HS #30 tablet 08/17/16 Metoprolol Succinate [Toprol XL -] 50 mg PO BID #60 tab.sr.24h 10/16/16 Review of Systems - Review of Systems Constitutional: reports: No Symptoms Eyes: reports: No Symptoms HENT: reports: No Symptoms Neck: reports: No Symptoms Cardiovascular: reports: No Symptoms Respiratory: reports: No Symptoms Gastrointestinal: reports: No Symptoms Genitourinary: reports: No Symptoms Musculoskeletal: reports: Joint Swelling, Muscle Pain Integumentary: reports: Change in Color, Wound Neurological: reports: No Symptoms Endocrine: reports: No Symptoms Hematology/Lymphatic: reports: No Symptoms Psychiatric: reports: No Symptoms Physical Exam Vital Signs: Vital Signs Temperature 98.6 F 06/05/17 15:30 Pulse Rate 70 06/05/17 15:30 Respiratory Rate 18 06/05/17 15:30 Blood Pressure 131/78 06/05/17 15:30 O2 Sat by Pulse Oximetry (%) 100 06/05/17 15:30 Constitutional: Yes: Well Nourished, Calm, Mild Distress, Thin Cardiovascular: Yes: Regular Rate and Rhythm Respiratory: Yes: Regular, CTA Bilaterally Gastrointestinal: Yes: Normal Bowel Sounds, Soft Musculoskeletal: Yes: Muscle Pain, Other Extremities: Yes: Other (toe swelling and erythema) Wound/Incision: Yes: Open to air Neurological: Yes: Alert, Other Psychiatric: Yes: Alert, Other Imaging - Results Chest X-ray: Report Reviewed, Image Reviewed X-ray: Report Reviewed, Image Reviewed Assessment/Plan Osteomyelitis type: unspecified type Osteomyelitis location: foot Laterality: left Qualified Code(s): M86.9 - Osteomyelitis, unspecified; M86.9 - Osteomyelitis, unspecified; M86.9 - Osteomyelitis, unspecified uti plan will start patient on vanco and zosyn await for cx reports patient needs mri to r/o osteo,deep seated infection rest as per primary team
[2017-06-05] MEDS ORDERED: VANCOMYCIN 1 GRAM (PRE-DOCKED) 250 ML IVPB ONE (18:01)
[2017-06-05] MEDS ORDERED: PIPERACILLIN/TAZOB 3.375 GM 50 ML IVPB ONE (18:01)
[2017-06-05 18:02] LABS: URINE APPEARANCE TURBID; URINE BILIRUBIN NEGATIVE (NEGATIVE); URINE BLOOD 1+ (NEGATIVE); URINE COLOR YELLOW; URINE GLUCOSE (UA) NEGATIVE (NEGATIVE); URINE KETONE NEGATIVE (NEGATIVE); URINE NITRITE NEGATIVE (NEGATIVE); URINE UROBILINOGEN NEGATIVE mg/dL (0.2-1.0)
--- NOTE | 2017-06-05 18:06 | HP ---
CHIEF COMPLAINT: Left toe cellulits PCP: Dr. Lyons HISTORY OF PRESENT ILLNESS: Patient is an 86 year old female with significant past medical history of HTN, HLD, DM, CAD (s/p CABG), CVA, multiple UTI and dementia. She presents to the ED today for worsening left great toe redness and pus under the toe nail. Family and aide report that they noticed the left toe infection today. As per daughter and [employer]IST [employer]IANS, patient was having a pipe setter come to the house, however, the pipe setter recommended that the patient should be taken to the ED. On exam, left great toe is noted to be reddened, left foot is cool to the touch. No pus noted on exam. Patient denies chest pain, shortness of breath, headache and dizziness. She denies fever, chills, nausea, vomit, diarrhea and constipation. She denies dysuria, frequency, urgency and hematuria. ER course was notable for: (1) pending labs, may need central line (2) foot xray ordered to rule out fracture of left great toe (3) Started on Vanco and zosyn by ID Recent Travel: PAST MEDICAL HISTORY: PAST SURGICAL HISTORY: Social History: Smoking: denies Alcohol: denies Drugs: denies Family History: Allergies quetiapine fumarate [From Seroquel] Allergy (Severe, Verified 06/05/17 15:52) Difficulty Breathing NMS ranolazine [From Ranexa] Allergy (Verified 06/05/17 15:52) HOME MEDICATIONS: Home Medications Medication Instructions Recorded Clopidogrel Bisulfate [Plavix -] 75 mg PO DAILY 12/23/15 Duloxetine HCl 20 mg PO DAILY 12/23/15 Ferrous Sulfate 325 mg PO DAILY 12/23/15 Isosorbide Mononitrate [Imdur -] 90 mg PO DAILY 12/23/15 Metformin HCl 850 mg PO BID 12/23/15 Polyethylene Glycol 3350 [Miralax 17 gm PO TID 12/23/15 119 gm Btl -] Docusate Sodium [Colace -] 100 mg PO BID #40 capsule 04/14/16 Metoprolol Succinate [Toprol XL -] 50 mg PO DAILY #21 tab.sr.24h 04/14/16 Aspirin [ASA -] 81 mg PO DAILY #30 tab.chew 08/17/16 Atorvastatin Ca [Lipitor] 20 mg PO HS #30 tablet 08/17/16 Lactobacillus Acidophilus [Bacid -] 1 each PO DAILY #30 capsule 08/17/16 Metoprolol Succinate [Toprol XL -] 50 mg PO BID #60 tab.sr.24h 10/16/16 REVIEW OF SYSTEMS CONSTITUTIONAL: Absent: fever, chills, diaphoresis, generalized weakness, malaise, loss of appetite, weight change HEENT: Absent: rhinorrhea, nasal congestion, throat pain, throat swelling, difficulty swallowing, mouth swelling, ear pain, eye pain, visual changes CARDIOVASCULAR: Absent: chest pain, syncope, palpitations, irregular heart rate, lightheadedness , peripheral edema RESPIRATORY: Absent: cough, shortness of breath, dyspnea with exertion, orthopnea, wheezing, stridor, hemoptysis GASTROINTESTINAL: Absent: abdominal pain, abdominal distension, nausea, vomiting, diarrhea, constipation, melena, hematochezia GENITOURINARY: Absent: dysuria, frequency, urgency, hesitancy, hematuria, flank pain, genital pain MUSCULOSKELETAL: Absent: myalgia, arthralgia, joint swelling, back pain, neck pain SKIN: Absent: rash, itching, pallor HEMATOLOGIC/IMMUNOLOGIC: Absent: easy bleeding, easy bruising, lymphadenopathy, frequent infections ENDOCRINE: Absent: unexplained weight gain, unexplained weight loss, heat intolerance, cold intolerance NEUROLOGIC: Absent: headache, focal weakness or paresthesias, dizziness, unsteady gait, seizure, mental status changes, bladder or bowel incontinence PSYCHIATRIC: Absent: anxiety, depression, suicidal or homicidal ideation, hallucinations. PHYSICAL EXAMINATION Vital Signs - 24 hr 06/05/17 15:30 Temperature 98.6 F Pulse Rate 70 Respiratory 18 Rate Blood Pressure 131/78 O2 Sat by Pulse 100 Oximetry (%) GENERAL: Lethargic and non verbal, cachectic HEAD: Normal with no signs of trauma. EYES: Pupils equal, round and reactive to light, extraocular movements intact, sclera anicteric, conjunctiva clear. No lid lag. EARS, NOSE, THROAT: Ears normal, nares patent, oropharynx clear without exudates. dry mucous membranes. NECK: supple with no jvd LUNGS: Breath sounds equal, clear to auscultation bilaterally. No wheezes, and no crackles. No accessory muscle use. HEART: Regular rate and rhythm, normal S1 and S2 without murmur, rub or gallop. ABDOMEN: Soft, nontender, not distended, normoactive bowel sounds, no guarding, no rebound, no masses. No hepatomegaly or splenomegaly. MUSCULOSKELETAL: No bony deformities or tenderness. No CVA tenderness. UPPER EXTREMITIES: 2+ pulses, No cyanosis. No clubbing. Cap refill <2 seconds. No peripheral edema. LOWER EXTREMITIES:1+ pulses No calf tenderness. No peripheral edema. NEUROLOGICAL: lethargic, calm PSYCHIATRIC: flat effect. SKIN:cool and clammy, ASSESSMENT/PLAN: Patient is an 86 year old female with significant past medical history of HTN, HLD, DM, CAD (s/p CABG), CVA, multiple UTI and dementia. She presents to the ED today for worsening left great toe redness and pus under the toe nail. Family and aide report that they noticed the left toe infection today. As per daughter and [employer], patient was having a pipe setter come to the house, however, the pipe setter recommended that the patient should be taken to the ED. On exam, left great toe is noted to be reddened, left foot is cool to the touch. No pus noted on exam. Patient denies chest pain, shortness of breath, headache and dizziness. She denies fever, chills, nausea, vomit, diarrhea and constipation. She denies dysuria, frequency, urgency and hematuria. ID: Left Great Toe cellulitis, acute A/P: Foot xray to rule out acute fracture Started on Vanco and Zosyn per ID MRI to rule out osteo Awaiting IV placement, may need central line as per ED MD Blood and cultures pending IV hydration Lactic acid levels pending : UTI rule out A/P: pus noted with valencia placement Urine cultures ordered Hx of ESBL in urine valencia in place, urine cloudy Strict intake and output Endocrine: Diabetes Mellitus A/P: sliding scale with Novolog coverage [id number] Cardiology: Hyperlipidemia A/p: On Lipitor 20mg @ HS CAD S/p CABG A/p: On ASA 81mg daily Metoprolol 50mg daily GI: Chronic Constipation A/P: Docusate Sodium (Colace -) 100 mg PO BID Polyethylene Glycol (Miralax (For Daily Use) -) 17 gm PO TID DVT: Proph: Heparin TID GI: Protonix F.E.N. Fluids: NS @ 75cc Electrolytes: monitor Nutrition: low sodium
[2017-06-05 18:08] LABS: VENOUS PH 7.31 (7.32-7.42)
[2017-06-05 18:09] LABS: VENOUS BLOOD GAS HCO3 22.8 meq/L (19-25)
[2017-06-05 18:37] LABS: URINE PROTEIN 2+ (NEGATIVE)
[2017-06-05 18:42] LABS: URINE RBC 12 /hpf (0-3); URINE WBC 547 /hpf (3-5)
[2017-06-05] MEDS ORDERED: SODIUM CHLORIDE 1,000 ML IV SCH (19:00)
[2017-06-05 19:51] LABS: BASOPHIL 0.2 % (0-2.0); EOSINOPHIL 0.6 % (0-4.5); MCH 28.4 pg (25.7-33.7); MEAN CELL VOLUME 85.9 fl (80-96); MEAN PLT VOLUME 8.1 fl (7.5-11.1); NEUTROPHILS 73.7 % (42.8-82.8); PLATELET COUNT 207 K/MM3 (134-434); RDW 15.4 % (11.6-15.6); WHITE BLOOD COUNT 7.2 K/mm3 (4.0-10.0)
[2017-06-05 20:12] LABS: ACTIVATED PTT 29.1 SECONDS (26.9-34.4)
[2017-06-05 20:15] LABS: ANION GAP 13 (8-16); BILIRUBIN,TOTAL 0.2 mg/dL (0.2-1.0); CALCIUM 8.6 mg/dL (8.5-10.1); CO2 20 mmol/L (21-32); CREATININE 0.8 mg/dL (0.55-1.02); GLUCOSE,RANDOM 160 mg/dL (74-106); SGOT/AST 9 U/L (15-37); SGPT/ALT 12 U/L (12-78); TOT PROT 6.6 g/dl (6.4-8.2)
[2017-06-05 20:17] LABS: ALK PHOS 63 U/L (45-117); CPK 24 IU/L (26-192); TROPONIN I < 0.02 ng/ml (0.00-0.05)
[2017-06-05 21:02] LABS: PROTHROMBIN TIME (PATIENT) 11.9 SEC (9.98-11.88)
[2017-06-05 21:03] LABS: INR 1.08 (0.82-1.09)
[2017-06-05] MEDS: INSULIN SLIDING SCALE (NOVOLOG) 1 VIAL SQ SCH (21:12)
[2017-06-05] MEDS: POLYETHYLENE GLYCOL 3350 119 GM BTL PO SCH (21:45)
[2017-06-05] MEDS: METOPROLOL SUCCINATE 50 MG TAB.SR.24H (FP) PO SCH (21:45)
[2017-06-05] MEDS: HEPARIN NA (PORCINE) 5,000 UNITS/ML 1ML VIAL SQ SCH (21:45)
[2017-06-05] MEDS: ATORVASTATIN CA 20 MG TABLET (FP) PO SCH (21:45)
[2017-06-05] MEDS: DOCUSATE SODIUM 100 MG CAPSULE (FP) PO SCH (21:45)
[2017-06-05 22:48] VITALS: BMI 16.5
[2017-06-05 22:59] LABS: URINE LEUK ESTERASE 3+ (NEGATIVE)
[2017-06-06] MEDS ORDERED: PT OWN MED DRAWER 7, Y5N ONE (02:36)
[2017-06-06] MEDS ORDERED: PIPERACILLIN/TAZOB 2.25 GM 2.25 GM in DEXTROSE 5%-WATER - 50 ML IVPB SCH ×2 (03:00→03:05)
[2017-06-06] MEDS ORDERED: DEXTROSE 5%-WATER - 50 ML IVPB ONE ×4 (03:19→21:26)
[2017-06-06] MEDS ORDERED: PIPERACILLIN/TAZOBACTAM 2.25 GM VIAL IVPB ONE ×4 (03:19→21:26)
[2017-06-06] MEDS: PIPERACILLIN/TAZOB 2.25 GM 2.25 GM in DEXTROSE 5%-WATER - 50 ML IVPB SCH ×4 (03:26→21:31)
[2017-06-06] MEDS: POLYETHYLENE GLYCOL 3350 119 GM BTL PO SCH ×2 (06:23→21:31)
[2017-06-06] MEDS: DOCUSATE SODIUM 100 MG CAPSULE (FP) PO SCH ×3 (06:23→21:32)
[2017-06-06] MEDS: INSULIN SLIDING SCALE (NOVOLOG) 1 VIAL SQ SCH ×4 (06:23→23:00)
[2017-06-06 08:38] LABS: MCH 27.5 pg (25.7-33.7); MCHC 32.1 g/dl (32.0-36.0); MEAN CELL VOLUME 85.8 fl (80-96); MEAN PLT VOLUME 8.2 fl (7.5-11.1); PLATELET COUNT 191 K/MM3 (134-434); RDW 15.6 % (11.6-15.6); WHITE BLOOD COUNT 7.7 K/mm3 (4.0-10.0)
[2017-06-06 09:04] LABS: ALBUMIN 1.8 g/dl (3.4-5.0); ANION GAP 9 (8-16); CO2 18 mmol/L (21-32); CREATININE 0.2 mg/dL (0.55-1.02); GLUCOSE,RANDOM 77 mg/dL (74-106); PHOSPHOROUS 1.4 mg/dL (2.5-4.9); SGOT/AST 8 U/L (15-37); SGPT/ALT 9 U/L (12-78)
[2017-06-06 09:06] LABS: ALK PHOS 38 U/L (45-117); BILIRUBIN,TOTAL 0.2 mg/dL (0.2-1.0); TOT PROT 3.9 g/dl (6.4-8.2)
[2017-06-06] MEDS ORDERED: MAGNESIUM SULF 50% (8.12 MEQ/2 ML-1 GM VIAL) IVPB ONE ×2 (09:06→11:30)
[2017-06-06] MEDS ORDERED: KCL 10 MEQ IVPB 100 ML IVPB SCH (09:15)
[2017-06-06 09:22] LABS: CALCIUM 5.6 mg/dL (8.5-10.1)
[2017-06-06] MEDS ORDERED: SODIUM CHLORIDE 1,000 ML IV STA (09:28)
[2017-06-06] MEDS ORDERED: amLODIPine BESYLATE 5 MG TABLET (FP) PO SCH (10:00)
[2017-06-06] MEDS ORDERED: CALCIUM GLUCONATE 10% - 1,000 MG/10 ML VIAL IVPB ONE (10:04)
[2017-06-06] MEDS ORDERED: POTASSIUM PHOSPHATE 30 MM in SODIUM CHLORIDE 500 ML IVPB ONE (10:15)
[2017-06-06] MEDS: ISOSORBIDE MONONITRATE 30 MG TAB.SR.24H (FP) PO SCH (10:15)
[2017-06-06] MEDS: ASPIRIN 81 MG CHEWABLE TABLETS PO SCH (10:16)
[2017-06-06] MEDS: NAPH,MB-DB/K PH,MBDB POWDER PACKET PO SCH ×2 (10:16→21:31)
[2017-06-06] MEDS: METOPROLOL SUCCINATE 50 MG TAB.SR.24H (FP) PO SCH ×2 (10:16→21:28)
[2017-06-06] MEDS: LACTOBACILLUS ACIDOPHILUS 1 EACH TAB (FP) PO SCH (10:16)
[2017-06-06] MEDS: HEPARIN NA (PORCINE) 5,000 UNITS/ML 1ML VIAL SQ SCH ×2 (10:16→21:32)
[2017-06-06] MEDS: FERROUS SO4 325 MG TABLET (FP) PO SCH (10:16)
[2017-06-06] MEDS: DULoxetine HCL 20 MG CAPSULE.DR (FP) PO SCH (10:16)
[2017-06-06] MEDS: CLOPIDOGREL BISULFATE 75 MG TABLET (FP) PO SCH (10:16)
--- NOTE | 2017-06-06 10:33 | CON.NEP ---
Consult Consult Specialty:: Nephrology Referred by:: Adilene Tinsley Reason for Consultation:: Multiple electrolyte abnormalities - History of Present Illness Chief Complaint: Toe infection History of Present Illness: This is a 86 year old woman with PMhx of Hypertension, Hyperlipidemia, DM, CAD s /p CABG, CVA, Dementia who presented from [place] with suspected infection of her toe and found to have several electrolyte abnormalities. Pt is awake and alert but not able to provide any history. Denies any pain, sob, fever, chills, N/V/ D. on IVF. Mosqueda in place with yellow urine. 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 ) Cardio/Vascular: Yes: CAD, HTN, Hyperlipdemia, Other (ASHD, CABG) Gastrointestinal: Yes: Constipation Renal/: Yes: Renal Inusuff (New renal insufficiency) Endocrine: Yes: Diabetes Mellitus - Past Surgical History Past Surgical History: Yes: Appendectomy, CABG - Alcohol/Substance Use Hx Alcohol Use: No History of Substance Use: reports: None - Smoking History Smoking history: Never smoked Have you smoked in the past 12 months: No Aproximately how many cigarettes per day: 0 - Social History Usual Living Arrangement: Alone 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, needs help to eat History of Recent Travel: No Home Medications - Allergies Allergies/Adverse Reactions: Allergies Allergy/AdvReac Type Severity Reaction Status Date / Time quetiapine fumarate Allergy Severe Difficulty Verified 06/05/17 15:52 [From Seroquel] Breathing ranolazine [From Ranexa] Allergy Verified 06/05/17 15:52 - Home Medications Home Medications: Ambulatory Orders Clopidogrel Bisulfate [Plavix -] 75 mg PO DAILY 12/23/15 Duloxetine HCl 20 mg PO DAILY 12/23/15 Ferrous Sulfate 325 mg PO DAILY 12/23/15 Isosorbide Mononitrate [Imdur -] 90 mg PO DAILY 12/23/15 Metformin HCl 850 mg PO BID 12/23/15 Polyethylene Glycol 3350 [Miralax 119 gm Btl -] 17 gm PO TID 12/23/15 Docusate Sodium [Colace -] 100 mg PO BID #40 capsule 04/14/16 Metoprolol Succinate [Toprol XL -] 50 mg PO DAILY #21 tab.sr.24h 04/14/16 Atorvastatin Ca [Lipitor] 20 mg PO HS #30 tablet 08/17/16 Metoprolol Succinate [Toprol XL -] 50 mg PO BID #60 tab.sr.24h 10/16/16 Family Disease History - Family Disease History Family History: Unable to Obtain Review of Systems - Review of Systems Constitutional: reports: No Symptoms Eyes: reports: No Symptoms Neck: reports: No Symptoms Cardiovascular: reports: No Symptoms Respiratory: reports: No Symptoms Gastrointestinal: reports: No Symptoms Genitourinary: reports: No Symptoms Musculoskeletal: reports: No Symptoms Endocrine: reports: No Symptoms Nephrology Consult - Height Height: 5 ft 6 in - Weight Weight: 102 lb 9.6 oz - BMI Body Mass Index (BMI): 16.5 - Lab Results CBC,BMP: CBC, BMP 06/06/17 07:15 06/06/17 07:15 Anion Gap: Anion Gap Anion Gap 9 (8-16) 06/06/17 07:15 - Imaging Chest X-ray: Report Reviewed - Physical Examination Vital Signs: Vital Signs Temperature 98.1 F 06/06/17 05:54 Pulse Rate 77 06/06/17 05:54 Respiratory Rate 20 06/06/17 05:54 Blood Pressure 162/89 06/06/17 05:54 O2 Sat by Pulse Oximetry (%) 98 06/05/17 21:30 Constitutional: Yes: No Distress, Calm Eyes: Yes: Conjunctiva Clear HENT: Yes: Atraumatic, Normocephalic Neck: Yes: Supple Cardiovascular: Yes: Regular Rate and Rhythm, S1, S2. No: JVD Respiratory: Yes: Regular, CTA Bilaterally. No: Rales, Rhonchi, SOB, Wheezes Gastrointestinal: Yes: Normal Bowel Sounds, Soft. No: Tenderness Renal/: Yes: Mosqueda Present. No: Anuria, Bladder Distention, CVA Tenderness - Left, CVA Tenderness - Right Extremities: No: Cold, Cool, Cyanosis Edema: No Neurological: Yes: Alert. No: Oriented Problem List - Problems (1) Hypomagnesemia Code(s): E83.42 - HYPOMAGNESEMIA (2) Hypocalcemia Code(s): E83.51 - HYPOCALCEMIA (3) Hypokalemia Code(s): E87.6 - HYPOKALEMIA (4) Hypertension Code(s): I10 - ESSENTIAL (PRIMARY) HYPERTENSION (5) Soft tissue infection of foot Code(s): L08.9 - LOCAL INFECTION OF THE SKIN AND SUBCUTANEOUS TISSUE, UNSP Assessment/Plan 86 year old woman with PMhx of Hypertension, Hyperlipidemia, DM, CAD s/p CABG, CVA, Dementia who presented from [place] with suspected infection of her toe and found to have several electrolyte abnormalities. #Hypernatremia Calculated water deficit is 1.1 L change IVF to 1/2 NS with KCL Trend Na Q12h #Hypocalcemia Corrected Ca is 7.3 since it is less then 7.5 will need correction wit IV Calcium start oral calcium carbonate as well trend Ca levels Q12h Check Vit d levels #Hypokalemia/Hypomagnesemia secondary to diarrhea? Give IV Mg with goal > 2, Give IV KCl with goal > 3.5 #Hypophosphatemia Give IV K-phos given Phos is less then 2 Repeat the level this afternoon continue oral neutraphos as well #Non-anion gap metabolic acidosis Check urine electrolytes to calculate urine anion gap to start oral bicarbonate #Soft tissue infection continue Abx as per primary and ID Thank you Will follow Deyvi Hernandez DO
[2017-06-06] MEDS: SODIUM CHLORIDE 0.45% 1,000 ML IV SCH (11:23)
--- NOTE | 2017-06-06 12:02 | PN ---
Physical Exam: SUBJECTIVE: Patient seen and examined at the bedside. She denies any discomfort or pain. OBJECTIVE: She has electrolyte imbalance (hypomag, hypoK, hypophos, hypocalcemia) likely secondary to the multiple laxatives she has at home. She is on Colace 100mg TID and Miralax TID Daughter states that if she does not take the Miralax TID and Colace TID she has fecal impaction Lactic acid levels still elevated, but could be due to her home Metformin use ( on Hold), she is now on Novolog sliding scale Will repeat labs at 9pm today as all ordered medications are still being given Vital Signs Period Temp Pulse Resp BP Sys/Iniguez Pulse Ox Last 24 Hr 97.8 F-98.1 F 75-78 18-20 119-206/70-108 98-98 GENERAL: Lethargic and non verbal, cachectic HEAD: Normal with no signs of trauma. EYES: Pupils equal, round and reactive to light, extraocular movements intact, sclera anicteric, conjunctiva clear. No lid lag. EARS, NOSE, THROAT: Ears normal, nares patent, oropharynx clear without exudates. dry mucous membranes. NECK: supple with no jvd LUNGS: Breath sounds equal, clear to auscultation bilaterally. No wheezes, and no crackles. No accessory muscle use. HEART: Regular rate and rhythm, normal S1 and S2 without murmur, rub or gallop. ABDOMEN: Soft, nontender, not distended, normoactive bowel sounds, no guarding, no rebound, no masses. No hepatomegaly or splenomegaly. MUSCULOSKELETAL: No bony deformities or tenderness. No CVA tenderness. UPPER EXTREMITIES: 2+ pulses, No cyanosis. No clubbing. Cap refill <2 seconds. No peripheral edema. LOWER EXTREMITIES:1+ pulses No calf tenderness. No peripheral edema. NEUROLOGICAL: lethargic, calm PSYCHIATRIC: flat effect. SKIN:cool and clammy, Laboratory Results - last 24 hr 06/05/17 06/05/17 06/05/17 19:40 19:40 19:40 WBC 7.2 RBC 4.07 Hgb 11.6 Hct 35.0 MCV 85.9 MCH 28.4 MCHC 33.0 RDW 15.4 Plt Count 207 MPV 8.1 Neutrophils % 73.7 Lymphocytes % 17.7 Monocytes % 7.8 Eosinophils % 0.6 Basophils % 0.2 ESR PT with INR 11.90 H INR 1.08 PTT (Actin FS) 29.1 Sodium 136 Potassium 4.2 D Chloride 103 Carbon Dioxide 20 L D Anion Gap 13 BUN 15 D Creatinine 0.8 Creat Clearance w eGFR > 60 POC Glucometer Random Glucose 160 H D Hemoglobin A1c % Lactic Acid Calcium 8.6 Phosphorus Magnesium Total Bilirubin 0.2 D AST 9 L D ALT 12 Alkaline Phosphatase 63 D Creatine Kinase 24 L Troponin I < 0.02 C-Reactive Protein Total Protein 6.6 Albumin 3.0 L Blood Type Antibody Screen 06/05/17 06/05/17 06/05/17 19:40 19:40 19:40 WBC RBC Hgb Hct MCV MCH MCHC RDW Plt Count MPV Neutrophils % Lymphocytes % Monocytes % Eosinophils % Basophils % ESR PT with INR INR PTT (Actin FS) Sodium Potassium Chloride Carbon Dioxide Anion Gap BUN Creatinine Creat Clearance w eGFR POC Glucometer Random Glucose Hemoglobin A1c % Lactic Acid 5.9 H* Calcium Phosphorus Magnesium Total Bilirubin AST ALT Alkaline Phosphatase Creatine Kinase Troponin I C-Reactive Protein < 0.3 Total Protein Albumin Blood Type A POSITIVE Antibody Screen Negative 06/05/17 06/05/17 06/06/17 19:40 21:10 06:15 WBC RBC Hgb Hct MCV MCH MCHC RDW Plt Count MPV Neutrophils % Lymphocytes % Monocytes % Eosinophils % Basophils % ESR 5 PT with INR INR PTT (Actin FS) Sodium Potassium Chloride Carbon Dioxide Anion Gap BUN Creatinine Creat Clearance w eGFR POC Glucometer 143 122 Random Glucose Hemoglobin A1c % Lactic Acid Calcium Phosphorus Magnesium Total Bilirubin AST ALT Alkaline Phosphatase Creatine Kinase Troponin I C-Reactive Protein Total Protein Albumin Blood Type Antibody Screen 06/06/17 06/06/17 06/06/17 07:15 07:15 07:15 WBC 7.7 RBC 4.17 Hgb 11.5 Hct 35.8 MCV 85.8 MCH 27.5 MCHC 32.1 RDW 15.6 Plt Count 191 MPV 8.2 Neutrophils % Lymphocytes % Monocytes % Eosinophils % Basophils % ESR PT with INR INR PTT (Actin FS) Sodium 147 H Potassium 3.0 L D Chloride 120 H D Carbon Dioxide 18 L Anion Gap 9 BUN 11 D Creatinine 0.2 L D Creat Clearance w eGFR > 60 POC Glucometer Random Glucose 77 D Hemoglobin A1c % 7.1 H D Lactic Acid Calcium 5.6 L* D Phosphorus 1.4 L D Magnesium 1.0 L D Total Bilirubin 0.2 AST 8 L ALT 9 L D Alkaline Phosphatase 38 L D Creatine Kinase Troponin I C-Reactive Protein Total Protein 3.9 L D Albumin 1.8 L D Blood Type Antibody Screen 06/06/17 06/06/17 06/06/17 07:15 10:30 11:19 WBC RBC Hgb Hct MCV MCH MCHC RDW Plt Count MPV Neutrophils % Lymphocytes % Monocytes % Eosinophils % Basophils % ESR PT with INR INR PTT (Actin FS) Sodium Potassium Chloride Carbon Dioxide Anion Gap BUN Creatinine Creat Clearance w eGFR POC Glucometer 175 Random Glucose Hemoglobin A1c % Lactic Acid 2.4 H* 2.6 H* Calcium Phosphorus Magnesium Total Bilirubin AST ALT Alkaline Phosphatase Creatine Kinase Troponin I C-Reactive Protein Total Protein Albumin Blood Type Antibody Screen Active Medications Generic Name Dose Route Start Last Admin Trade Name Freq PRN Reason Stop Dose Admin Amlodipine Besylate 5 mg 06/06/17 10:00 06/06/17 10:16 Norvasc - PO 5 mg DAILY SEAN Administration Aspirin 81 mg 06/06/17 10:00 06/06/17 10:16 Asa - PO 81 mg DAILY SEAN Administration Atorvastatin Calcium 20 mg 06/05/17 22:00 06/05/17 21:45 Lipitor - PO 20 mg HS SEAN Administration Calcium Carbonate 1,300 mg 06/06/17 11:00 Calcium Carbonate - PO BID [facility] Clopidogrel Bisulfate 75 mg 06/06/17 10:00 06/06/17 10:16 Plavix - PO 75 mg DAILY SEAN Administration Docusate Sodium 100 mg 06/05/17 22:00 06/06/17 06:23 Colace - PO 100 mg TID SEAN Administration Duloxetine HCl 20 mg 06/06/17 10:00 06/06/17 10:16 Cymbalta - PO 20 mg DAILY SEAN Administration Ferrous Sulfate 325 mg 06/06/17 10:00 06/06/17 10:16 Feosol - PO 325 mg DAILY [facility]AN Administration Heparin Sodium (Porcine) 5,000 unit 06/05/17 22:00 06/06/17 10:16 Heparin - SQ 5,000 unit BID SEAN Administration Vancomycin HCl 750 mg/ 250 mls @ 250 mls/hr 06/06/17 10:00 Dextrose IVPB DAILY [facility] Protocol Piperacillin Sod/Tazobactam 50 mls @ 100 mls/hr 06/06/17 03:15 06/06/17 10:14 Sod 2.25 gm/ Dextrose IVPB 100 mls/hr Q6H-IV SEAN Administration Protocol Potassium Phosphate 30 mm/ 510 mls @ 63.75 mls/hr 06/06/17 10:15 Sodium Chloride IVPB 06/06/17 18:14 ONCE ONE 30 MM/8 HR Sodium Chloride 1,000 mls @ 83 mls/hr 06/06/17 10:45 06/06/17 11:23 1/2 Normal Saline IV 83 mls/hr ASDIR SEAN Administration Insulin Aspart 1 vial 06/05/17 22:00 06/06/17 11:24 Novolog Vial Sliding Scale - SQ 2 unit ACHS SEAN Administration Protocol Isosorbide Mononitrate 90 mg 06/06/17 10:00 06/06/17 10:15 Imdur - PO 90 mg DAILY SEAN Administration Lactobacillus Acidophilus 1 tab 06/06/17 10:00 06/06/17 10:16 Bacid - PO 1 tab DAILY SEAN Administration Metoprolol Succinate 50 mg 06/05/17 22:00 06/06/17 10:16 Toprol Xl - PO 50 mg BID SEAN Administration Polyethylene Glycol 17 gm 06/05/17 22:00 06/06/17 06:23 Miralax (For Daily Use) - PO 17 grams TID SEAN Administration Potassium Phos/Sodium Phos 1 packet 06/06/17 10:00 06/06/17 10:16 Phos-Nak Packet - PO 1 packet BID SEAN Administration ASSESSMENT/PLAN: Patient is an 86 year old female with significant past medical history of HTN, HLD, DM, CAD (s/p CABG), CVA, multiple UTI and dementia. She presents to the ED today for worsening left great toe redness and pus under the toe nail. Family and aide report that they noticed the left toe infection today. As per daughter and VAMP THROATER, patient was having a health services rn come to the house, however, the health services rn recommended that the patient should be taken to the ED. On exam, left great toe is noted to be reddened, left foot is cool to the touch. No pus noted on exam. Patient denies chest pain, shortness of breath, headache and dizziness. She denies fever, chills, nausea, vomit, diarrhea and constipation. She denies dysuria, frequency, urgency and hematuria. This morning she was found to have several electrolyte abnormalities and it may be due likely to poor PO intake as well as multiple home laxative use. I spoke to patient daughter who fears that if we stop the Miralax TID an Colace TID, patient will have fecal impaction which has happened in the past. ID: Left Great Toe cellulitis, acute A/P: Foot xray ruled out acute fracture Started on Vanco and Zosyn per ID MRI to rule out osteo pending Blood and cultures pending Wound culture pending Lactic acid remains elevated despite IVF fluids, may be secondary to home Metformin use Electrolyte Imbalance, acute Electrolyte Imbalance likely secondary to multiple home laxative use A/P: Family reports patient has severe constipation relieved only with Colace TID, Miralax TID Patient was hospitalized in 2016 with fecal impaction and had to be manually dis -impacted Found to have low levels of K@3.0, Chl 120, CO218, Calcium 5.6, Phos 1.4, Mag 1.0 All have been repleted today, patient is a poor IV stick, repeat labs ordered for 9pm when all ordered meds have infused Renal following GI: Chronic Constipation, may be contributing to electrolyte imbalance A/P: Family concerned over fecal impaction Will consult GI to follow : UTI rule out A/P: pus noted with valencia placement Urine cultures ordered, pending Hx of ESBL in urine valencia in place, urine cloudy Strict intake and output Endocrine: Diabetes Mellitus A/P: sliding scale with Novolog coverage Hmga1c 7.1 Cardiology: Hyperlipidemia A/p: On Lipitor 20mg @ HS CAD/Hypertensiom S/p CABG A/p: On ASA 81mg daily Metoprolol 50mg daily, Plavix daily DVT: Proph: Heparin TID GI: Protonix F.E.N. Fluids: NS @ 75cc Electrolytes: as above Nutrition: low sodium Disposition: full code. Visit type - Emergency Visit Emergency Visit: Yes ED Registration Date: 06/05/17 Care time: The patient presented to the Emergency Department on the above date and was hospitalized for further evaluation of their emergent condition. - New Patient This patient is new to me today: No - Critical Care Critical Care patient: No - Discharge Referral Referred to [facility] Med P.C.: No
[2017-06-06] MEDS: VANCOMYCIN 750 MG in DEXTROSE 5%-WATER - 250 ML IVPB SCH (12:08)
[2017-06-06] MEDS: KCL 10 MEQ IVPB 100 ML IVPB SCH ×2 (12:21→14:17)
--- NOTE | 2017-06-06 13:33 | PN ---
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, Physician History of Present Illness: stable doing well no new issues - Current Medication List Current Medications: Active Medications Amlodipine Besylate (Norvasc -) 5 mg PO DAILY [facility] Last Admin: 06/06/17 10:16 Dose: 5 mg Aspirin (Asa -) 81 mg PO DAILY [facility] Last Admin: 06/06/17 10:16 Dose: 81 mg Atorvastatin Calcium (Lipitor -) 20 mg PO HS [facility] Last Admin: 06/05/17 21:45 Dose: 20 mg Calcium Carbonate (Calcium Carbonate -) 1,300 mg PO BID [facility] Clopidogrel Bisulfate (Plavix -) 75 mg PO DAILY [facility] Last Admin: 06/06/17 10:16 Dose: 75 mg Docusate Sodium (Colace -) 100 mg PO TID [facility] Last Admin: 06/06/17 06:23 Dose: 100 mg Duloxetine HCl (Cymbalta -) 20 mg PO DAILY [facility] Last Admin: 06/06/17 10:16 Dose: 20 mg Ferrous Sulfate (Feosol -) 325 mg PO DAILY [facility] Last Admin: 06/06/17 10:16 Dose: 325 mg Heparin Sodium (Porcine) (Heparin -) 5,000 unit SQ BID [facility] Last Admin: 06/06/17 10:16 Dose: 5,000 unit Vancomycin HCl 750 mg/ (Dextrose) 250 mls @ 250 mls/hr IVPB DAILY [facility] PRN Reason: Protocol Last Admin: 06/06/17 12:08 Dose: 250 mls/hr Piperacillin Sod/Tazobactam (Sod 2.25 gm/ Dextrose) 50 mls @ 100 mls/hr IVPB Q6H-IV SEAN PRN Reason: Protocol Last Admin: 06/06/17 10:14 Dose: 100 mls/hr Potassium Phosphate 30 mm/ (Sodium Chloride) 510 mls @ 63.75 mls/hr IVPB ONCE ONE PRN Reason: 30 MM/8 HR Stop: 06/06/17 18:14 Sodium Chloride (1/2 Normal Saline) 1,000 mls @ 83 mls/hr IV ASDIR [facility] Last Admin: 06/06/17 11:23 Dose: 83 mls/hr Insulin Aspart (Novolog Vial Sliding Scale -) 1 vial SQ ACHS [facility] PRN Reason: Protocol Last Admin: 06/06/17 11:24 Dose: 2 unit Isosorbide Mononitrate (Imdur -) 90 mg PO DAILY [facility] Last Admin: 06/06/17 10:15 Dose: 90 mg Lactobacillus Acidophilus (Bacid -) 1 tab PO DAILY [facility] Last Admin: 06/06/17 10:16 Dose: 1 tab Metoprolol Succinate (Toprol Xl -) 50 mg PO BID [facility] Last Admin: 06/06/17 10:16 Dose: 50 mg Polyethylene Glycol (Miralax (For Daily Use) -) 17 gm PO BID [facility] Potassium Phos/Sodium Phos (Phos-Nak Packet -) 1 packet PO BID [facility] Last Admin: 06/06/17 10:16 Dose: 1 packet - Objective Vital Signs: Vital Signs Temperature 98.5 F 06/06/17 08:00 Pulse Rate 78 06/06/17 08:00 Respiratory Rate 20 06/06/17 08:00 Blood Pressure 146/85 06/06/17 08:00 O2 Sat by Pulse Oximetry (%) 98 06/06/17 08:00 Constitutional: Yes: No Distress, Calm, Thin Cardiovascular: Yes: Regular Rate and Rhythm Respiratory: Yes: Regular, CTA Bilaterally Gastrointestinal: Yes: Normal Bowel Sounds, Soft Musculoskeletal: Yes: Other Extremities: Yes: Other Wound/Incision: Yes: Other Neurological: Yes: Alert Psychiatric: Yes: Alert Labs: CBC, BMP 06/06/17 07:15 06/06/17 07:15 INR, PTT INR 1.08 (0.82-1.09) 06/05/17 19:40 Assessment/Plan Osteomyelitis type: unspecified type Osteomyelitis location: foot Laterality: left Qualified Code(s): M86.9 - Osteomyelitis, unspecified; M86.9 - Osteomyelitis, unspecified; M86.9 - Osteomyelitis, unspecified uti plan continue abx mri of the leg await for cx report [facility]
[2017-06-06] MEDS ORDERED: MAGNESIUM SULF 50% (8.12 MEQ/2 ML-1 GM VIAL) ONE (14:09)
[2017-06-06] MEDS: CALCIUM CARBONATE 650 MG TABLET PO SCH ×2 (14:16→21:28)
[2017-06-06 21:13] LABS: ANION GAP 7 (8-16); CALCIUM 8.7 mg/dL (8.5-10.1); CO2 26 mmol/L (21-32); CREATININE 0.6 mg/dL (0.55-1.02); GLUCOSE,RANDOM 227 mg/dL (74-106); PHOSPHOROUS 3.9 mg/dL (2.5-4.9)
[2017-06-06] MEDS: ATORVASTATIN CA 20 MG TABLET (FP) PO SCH (21:28)
[2017-06-06] MEDS ORDERED: INSULIN (NOVOLOG) ASPART 100 UNITS/ML 10ML VIAL ONE (22:12)
--- NOTE | 2017-06-06 22:36 | EKG ---
Test Reason : Blood Pressure : / mmHG Vent. Rate : 086 BPM Atrial Rate : 086 BPM P-R Int : 146 ms QRS Dur : 086 ms QT Int : 372 ms P-R-T Axes : 034 -55 046 degrees QTc Int : 445 ms NORMAL SINUS RHYTHM LEFT ANTERIOR FASCICULAR BLOCK RSR' IN V1 NONSPECIFIC ST ABNORMALITY ABNORMAL ECG WHEN COMPARED WITH ECG OF 09-OCT-2016 19:45, PREVIOUS HAD LOSS OF RECORDING IN LEAD II T WAVE INVERSION NO LONGER EVIDENT IN LATERAL LEADS ST SEGMENTS ARE NOW ISOELECTRICINI AND aVL REPEAT EKG IF CLINICALLY INDICATED Confirmed by TIA ALONZO MD ([id number]) on 06/06/2017 10:35:50 PM Referred By: Confirmed By:TIA ALONZO MD
[2017-06-07] MEDS ORDERED: DEXTROSE 5%-WATER - 50 ML IVPB ONE ×4 (02:45→20:35)
[2017-06-07] MEDS ORDERED: PIPERACILLIN/TAZOBACTAM 2.25 GM VIAL IVPB ONE ×4 (02:45→20:35)
[2017-06-07] MEDS: PIPERACILLIN/TAZOB 2.25 GM 2.25 GM in DEXTROSE 5%-WATER - 50 ML IVPB SCH ×4 (02:57→21:50)
[2017-06-07] MEDS: DOCUSATE SODIUM 100 MG CAPSULE (FP) PO SCH ×3 (05:53→21:44)
[2017-06-07] MEDS: INSULIN SLIDING SCALE (NOVOLOG) 1 VIAL SQ SCH ×4 (06:01→21:54)
[2017-06-07] MEDS: SODIUM CHLORIDE 0.45% 1,000 ML IV SCH ×3 (06:04→20:15)
[2017-06-07 06:42] LABS: BASOPHIL 0.1 % (0-2.0); EOSINOPHIL 2.6 % (0-4.5); MCH 28.5 pg (25.7-33.7); MCHC 33.6 g/dl (32.0-36.0); MEAN CELL VOLUME 84.7 fl (80-96); MEAN PLT VOLUME 7.8 fl (7.5-11.1); NEUTROPHILS 68.9 % (42.8-82.8); PLATELET COUNT 198 K/MM3 (134-434); RDW 15.6 % (11.6-15.6); WHITE BLOOD COUNT 8.2 K/mm3 (4.0-10.0)
[2017-06-07 07:42] LABS: ANION GAP 10 (8-16); CALCIUM 8.9 mg/dL (8.5-10.1); CO2 27 mmol/L (21-32); CREATININE 0.6 mg/dL (0.55-1.02); GLUCOSE,RANDOM 90 mg/dL (74-106)
[2017-06-07 07:58] LABS: C-REACTIVE PROTEIN 0.6 MG/DL (0.00-0.3)
--- NOTE | 2017-06-07 07:58 | CON.GI ---
Consult Consult Specialty:: GI Referred by:: Hospitalist Reason for Consultation:: constipation - History of Present Illness History of Present Illness: Chart reviewed. Please see H&P for details. The patient is admitted for toe infection. Noted to have mild electrolytes imbalance as well. Family reports history of fecal impaction unless takes Miramax and Docusate daily. This appears to be a chronic problem. Poor PO intake. Needs assistance. No other gastrointestinal complains, or concerns. 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, needs help to eat History of Recent Travel: No Home Medications - Allergies Allergies/Adverse Reactions: Allergies Allergy/AdvReac Type Severity Reaction Status Date / Time quetiapine fumarate Allergy Severe Difficulty Verified 06/05/17 15:52 [From Seroquel] Breathing ranolazine [From Ranexa] Allergy Verified 06/05/17 15:52 - Home Medications Home Medications: Ambulatory Orders Clopidogrel Bisulfate [Plavix -] 75 mg PO DAILY 12/23/15 Duloxetine HCl 20 mg PO DAILY 12/23/15 Ferrous Sulfate 325 mg PO DAILY 12/23/15 Isosorbide Mononitrate [Imdur -] 90 mg PO DAILY 12/23/15 Metformin HCl 850 mg PO BID 12/23/15 Polyethylene Glycol 3350 [Miralax 119 gm Btl -] 17 gm PO TID 12/23/15 Docusate Sodium [Colace -] 100 mg PO BID #40 capsule 04/14/16 Metoprolol Succinate [Toprol XL -] 50 mg PO DAILY #21 tab.sr.24h 04/14/16 Atorvastatin Ca [Lipitor] 20 mg PO HS #30 tablet 08/17/16 Metoprolol Succinate [Toprol XL -] 50 mg PO BID #60 tab.sr.24h 10/16/16 Family Disease History - Family Disease History Family History: Unremarkable (non-contributory) Review of Systems Findings/Remarks: Chart reviewed. Please see H&P for details - Review of Systems Constitutional: denies: Unintentional Wgt. Loss Gastrointestinal: denies: Melena, Rectal Bleeding, Vomiting, Vomiting Blood Physical Exam-GI Vital Signs: Vital Signs Temperature 98.2 F 06/07/17 06:00 Pulse Rate 70 06/07/17 06:00 Respiratory Rate 18 06/07/17 06:00 Blood Pressure 188/93 06/07/17 06:00 O2 Sat by Pulse Oximetry (%) 98 06/06/17 21:00 Constitutional: Yes: No Distress, Calm Eyes: Yes: Conjunctiva Clear HENT: Yes: Atraumatic Neck: Yes: Supple Cardiovascular: Yes: Regular Rate and Rhythm Respiratory: Yes: Regular Gastrointestinal Inspection: No: Ascites, Distention ...Auscultate: Yes: Normoactive Bowel Sounds ...Palpate: Yes: Soft. No: Firm/Rigid, Guarding, Hepatomegaly, Mass, Pulsatile Mass, Splenomegaly, Tenderness, Tenderness, Epigastium, Tenderness, Rebound ...Percussion: No: Dullness, Fluid Wave, Tympanitic Neurological: Yes: Alert Labs: CBC, BMP 06/07/17 06:10 06/07/17 06:10 INR, PTT INR 1.08 (0.82-1.09) 06/05/17 19:40 Abnormal Lab Results 06/06/17 06/06/17 06/06/17 07:15 07:15 07:15 Sodium 147 H Potassium 3.0 L D Chloride 120 H D Carbon Dioxide 18 L Anion Gap Creatinine 0.2 L D Random Glucose Hemoglobin A1c % 7.1 H D Lactic Acid 2.4 H* Calcium 5.6 L* D Phosphorus 1.4 L D Magnesium 1.0 L D AST 8 L ALT 9 L D Alkaline Phosphatase 38 L D C-Reactive Protein Total Protein 3.9 L D Albumin 1.8 L D 06/06/17 06/06/17 06/07/17 10:30 20:00 06:10 Sodium Potassium Chloride Carbon Dioxide Anion Gap 7 L Creatinine Random Glucose 227 H D Hemoglobin A1c % Lactic Acid 2.6 H* Calcium Phosphorus 5.0 H D Magnesium AST ALT Alkaline Phosphatase C-Reactive Protein 0.6 H D Total Protein Albumin Home Medication List Medication Instructions Recorded Confirmed Type Clopidogrel Bisulfate [Plavix -] 75 mg PO DAILY 12/23/15 06/05/17 History Duloxetine HCl 20 mg PO DAILY 12/23/15 06/05/17 History Ferrous Sulfate 325 mg PO DAILY 12/23/15 06/05/17 History Isosorbide Mononitrate [Imdur -] 90 mg PO DAILY 12/23/15 06/05/17 History Metformin HCl 850 mg PO BID 12/23/15 06/05/17 History Polyethylene Glycol 3350 [Miralax 17 gm PO TID 12/23/15 06/05/17 History 119 gm Btl -] Active Medications Generic Name Dose Route Start Last Admin Trade Name Freq PRN Reason Stop Dose Admin Amlodipine Besylate 5 mg 06/06/17 10:00 06/06/17 10:16 Norvasc - PO 5 mg DAILY [facility] Administration Aspirin 81 mg 06/06/17 10:00 06/06/17 10:16 Asa - PO 81 mg DAILY [facility] Administration Atorvastatin Calcium 20 mg 06/05/17 22:00 06/06/17 21:28 Lipitor - PO 20 mg HS SEAN Administration Calcium Carbonate 1,300 mg 06/06/17 11:00 06/06/17 21:28 Calcium Carbonate - PO 1,300 mg BID SEAN Administration Clopidogrel Bisulfate 75 mg 06/06/17 10:00 06/06/17 10:16 Plavix - PO 75 mg DAILY SEAN Administration Docusate Sodium 100 mg 06/05/17 22:00 06/07/17 05:53 Colace - PO 100 mg TID SEAN Administration Duloxetine HCl 20 mg 06/06/17 10:00 06/06/17 10:16 Cymbalta - PO 20 mg DAILY [facility] Administration Ferrous Sulfate 325 mg 06/06/17 10:00 06/06/17 10:16 Feosol - PO 325 mg DAILY [facility] Administration Heparin Sodium (Porcine) 5,000 unit 06/05/17 22:00 06/06/17 21:32 Heparin - SQ 5,000 unit BID [facility] Administration Vancomycin HCl 750 mg/ 250 mls @ 250 mls/hr 06/06/17 10:00 06/06/17 12:08 Dextrose IVPB 250 mls/hr DAILY [facility] Administration Protocol Piperacillin Sod/Tazobactam 50 mls @ 100 mls/hr 06/06/17 03:15 06/07/17 02:57 Sod 2.25 gm/ Dextrose IVPB 100 mls/hr Q6H-IV SE[facility] Administration Protocol Sodium Chloride 1,000 mls @ 83 mls/hr 06/06/17 10:45 06/07/17 06:04 1/2 Normal Saline IV 83 mls/hr ASDIR SE[facility] Administration Insulin Aspart 1 vial 06/05/17 22:00 06/07/17 06:01 Novolog Vial Sliding Scale - SQ Not Given ACHS SEAN Protocol Isosorbide Mononitrate 90 mg 06/06/17 10:00 06/06/17 10:15 Imdur - PO 90 mg DAILY [facility] Administration Lactobacillus Acidophilus 1 tab 06/06/17 10:00 06/06/17 10:16 Bacid - PO 1 tab DAILY [facility] Administration Metoprolol Succinate 75 mg 06/07/17 10:00 Toprol Xl - PO BID SEAN Polyethylene Glycol 17 gm 06/06/17 22:00 06/06/17 21:31 Miralax (For Daily Use) - PO 17 grams BID SEAN Administration Potassium Phos/Sodium Phos 1 packet 06/06/17 10:00 06/06/17 21:31 Phos-Nak Packet - PO 1 packet BID SEAN Administration Vital Signs - 24 hr 06/06/17 06/06/17 06/06/17 15:21 21:00 22:00 Temperature 98.6 F Pulse Rate 68 72 Respiratory 18 20 Rate Blood Pressure 127/68 185/96 O2 Sat by Pulse 98 Oximetry (%) 06/07/17 06/07/17 06/07/17 00:12 02:00 06:00 Temperature 97.6 F 98.2 F Pulse Rate 20 L 70 70 Respiratory 20 18 Rate Blood Pressure 120/80 198/93 188/93 O2 Sat by Pulse Oximetry (%) Problem List - Problems (1) Constipation, slow transit Assessment/Plan: No red flags. Non-distended abdomen, no findings on abdominal exam. The condition is likely a multifactorial in nature and may include overall clinical condition, inadequate hydration, colonic inertia and electrolytes abnormality. Agree with PEG/Miralax and Docusate. If fails to respond to this combo, consider trial of Amitiza. Correct electrolytes and maintain adequate hydration and po intake. High fiber diet, or bulking agents may not be beneficial, however can be tried Code(s): K59.01 - SLOW TRANSIT CONSTIPATION (2) Electrolyte abnormality Code(s): E87.8 - OTH DISORDERS OF ELECTROLYTE AND FLUID BALANCE, NEC
[2017-06-07] MEDS: CLOPIDOGREL BISULFATE 75 MG TABLET (FP) PO SCH (10:03)
[2017-06-07] MEDS: FERROUS SO4 325 MG TABLET (FP) PO SCH (10:03)
[2017-06-07] MEDS: ISOSORBIDE MONONITRATE 30 MG TAB.SR.24H (FP) PO SCH (10:03)
[2017-06-07] MEDS: DULoxetine HCL 20 MG CAPSULE.DR (FP) PO SCH (10:03)
[2017-06-07] MEDS: CALCIUM CARBONATE 650 MG TABLET PO SCH ×2 (10:03→21:43)
[2017-06-07] MEDS: LACTOBACILLUS ACIDOPHILUS 1 EACH TAB (FP) PO SCH (10:03)
[2017-06-07] MEDS: HEPARIN NA (PORCINE) 5,000 UNITS/ML 1ML VIAL SQ SCH ×2 (10:03→21:43)
[2017-06-07] MEDS: amLODIPine BESYLATE 5 MG TABLET (FP) PO SCH (10:03)
[2017-06-07] MEDS: METOPROLOL SUCCINATE 25 MG TAB.SR.24H (FP) PO SCH ×2 (10:04→21:44)
[2017-06-07] MEDS: NAPH,MB-DB/K PH,MBDB POWDER PACKET PO SCH ×2 (10:04→21:44)
[2017-06-07] MEDS: POLYETHYLENE GLYCOL 3350 119 GM BTL PO SCH ×3 (10:04→22:02)
[2017-06-07] MEDS: VANCOMYCIN 750 MG in DEXTROSE 5%-WATER - 250 ML IVPB SCH (11:01)
[2017-06-07] MEDS ORDERED: INSULIN (NOVOLOG) ASPART 100 UNITS/ML 10ML VIAL ONE (11:49)
--- NOTE | 2017-06-07 12:09 | CONSULT ---
Consult - text type - Consultation Consultation Note: Podiatry Consultation: Pleasant 86 year old DM F presents to the hospital for admission for UTI. Podiatry consultation requested for infection in left great toe, of unknown duration. Patient's daughter and RUG HOOKER noted pus like drainage from the left great toe nail, and house-call digital cartographer requested presentation to ED. She is afebrile with VSS. PMHx: DM, HTN, HLP, CAD s/p CABG, CVA, multiple UTI, dementia Meds: noted in chart ALL: quetiapine, ranolazine PUSHPA: L foot: pedal pulses 1/4, TG wnl, CFT brisk to all toes. There is localized erythema to the lateral nail fold of the great toe with pain on palpation, associated incurvated nail along the nail fold, moderate tenderness to palpation , no purulent drainage, no fluctuance, no streaking cellulitis, no signs of active infection. WBC: 8.2 Blood Cx: pending org Urine Cx: GNB Imp: 86 year old DM F with paronychia and cellulitis left great toe 1. Will perform partial nail avulsion tomorrow and inspect nail fold for any localized collection. 2. Will need epsom soaking instructions and topical abx on nail fold once discharged. 3. Source of bacteremia very unlikely from paronychia, given (+) UTI 4. Thank you for the courtesy of this consultation. Juana Hemphill DPM
--- NOTE | 2017-06-07 12:45 | PN ---
Physical Exam: SUBJECTIVE: Patient seen and examined. She is more awake and alert today, singing and smiling Denies any pain. OBJECTIVE: One blood culture bottle pending organism, repeat blood cultures pending Urine culture +, awaiting sensitivities Vital Signs Period Temp Pulse Resp BP Sys/Iniguez Pulse Ox Last 24 Hr 97.6 F-98.6 F 20-72 18-20 120-198/68-96 98 GENERAL: Awake, alert to self, hx of dementia HEAD: Normal with no signs of trauma. EYES: Pupils equal, round and reactive to light, extraocular movements intact, sclera anicteric, conjunctiva clear. No lid lag. EARS, NOSE, THROAT: Ears normal, nares patent, oropharynx clear without exudates. dry mucous membranes. NECK: supple LUNGS: Breath sounds equal, clear to auscultation bilaterally. No wheezes, and no crackles. No accessory muscle use. HEART: Regular rate and rhythm, normal S1 and S2 without murmur, rub or gallop. ABDOMEN: Soft, nontender, not distended, normoactive bowel sounds, no guarding, no rebound, no masses. No hepatomegaly or splenomegaly. MUSCULOSKELETAL: No bony deformities or tenderness. No CVA tenderness. UPPER EXTREMITIES: 2+ pulses, No cyanosis. No clubbing. Cap refill <2 seconds. No peripheral edema. LOWER EXTREMITIES:1+ pulses No calf tenderness. No peripheral edema. NEUROLOGICAL: calm, cooperative SKIN: dry, cool skin, fungal toe nails, left great toe with less redness + cellulitis of left great toe Laboratory Results - last 24 hr 06/06/17 06/06/17 06/06/17 16:26 20:00 20:00 WBC RBC Hgb Hct MCV MCH MCHC RDW Plt Count MPV Neutrophils % Lymphocytes % Monocytes % Eosinophils % Basophils % ESR Sodium 136 Potassium 4.6 D Chloride 103 D Carbon Dioxide 26 D Anion Gap 7 L BUN 13 Creatinine 0.6 D POC Glucometer 161 Random Glucose 227 H D Lactic Acid 1.8 Calcium 8.7 D Phosphorus 3.9 D Magnesium 2.0 D C-Reactive Protein 06/06/17 06/07/17 06/07/17 21:39 05:55 06:10 WBC RBC Hgb Hct MCV MCH MCHC RDW Plt Count MPV Neutrophils % Lymphocytes % Monocytes % Eosinophils % Basophils % ESR Sodium Potassium Chloride Carbon Dioxide Anion Gap BUN Creatinine POC Glucometer 175 89 Random Glucose Lactic Acid Calcium Phosphorus Magnesium 1.9 C-Reactive Protein 06/07/17 06/07/17 06/07/17 06:10 06:10 06:10 WBC 8.2 RBC 4.24 Hgb 12.1 Hct 35.9 MCV 84.7 MCH 28.5 MCHC 33.6 RDW 15.6 Plt Count 198 MPV 7.8 Neutrophils % 68.9 Lymphocytes % 19.3 Monocytes % 9.1 Eosinophils % 2.6 D Basophils % 0.1 ESR 13 Sodium 140 Potassium 4.3 Chloride 103 Carbon Dioxide 27 Anion Gap 10 BUN 12 Creatinine 0.6 POC Glucometer Random Glucose 90 D Lactic Acid Calcium 8.9 Phosphorus 5.0 H D Magnesium C-Reactive Protein 0.6 H D 06/07/17 06/07/17 06:10 11:44 WBC RBC Hgb Hct MCV MCH MCHC RDW Plt Count MPV Neutrophils % Lymphocytes % Monocytes % Eosinophils % Basophils % ESR Sodium Potassium Chloride Carbon Dioxide Anion Gap BUN Creatinine POC Glucometer 167 Random Glucose Lactic Acid 1.5 Calcium Phosphorus Magnesium C-Reactive Protein Active Medications Generic Name Dose Route Start Last Admin Trade Name Freq PRN Reason Stop Dose Admin Amlodipine Besylate 10 mg 06/07/17 08:08 06/07/17 10:03 Norvasc - PO 10 mg DAILY SEAN Administration Aspirin 81 mg 06/06/17 10:00 06/06/17 10:16 Asa - PO 81 mg DAILY SEAN Administration Atorvastatin Calcium 20 mg 06/05/17 22:00 06/06/17 21:28 Lipitor - PO 20 mg HS SEAN Administration Calcium Carbonate 1,300 mg 06/06/17 11:00 06/07/17 10:03 Calcium Carbonate - PO 1,300 mg BID SEAN Administration Clopidogrel Bisulfate 75 mg 06/06/17 10:00 06/07/17 10:03 Plavix - PO 75 mg DAILY SEAN Administration Docusate Sodium 100 mg 06/05/17 22:00 06/07/17 05:53 Colace - PO 100 mg TID SEAN Administration Duloxetine HCl 20 mg 06/06/17 10:00 06/07/17 10:03 Cymbalta - PO 20 mg DAILY SEAN Administration Ferrous Sulfate 325 mg 06/06/17 10:00 06/07/17 10:03 Feosol - PO 325 mg DAILY SEAN Administration Heparin Sodium (Porcine) 5,000 unit 06/05/17 22:00 06/07/17 10:03 Heparin - SQ 5,000 unit BID ESAN Administration Vancomycin HCl 750 mg/ 250 mls @ 250 mls/hr 06/06/17 10:00 06/07/17 11:01 Dextrose IVPB 250 mls/hr DAILY SEAN Administration Protocol Piperacillin Sod/Tazobactam 50 mls @ 100 mls/hr 06/06/17 03:15 06/07/17 10:01 Sod 2.25 gm/ Dextrose IVPB 100 mls/hr Q6H-IV SEAN Administration Protocol Sodium Chloride 1,000 mls @ 83 mls/hr 06/06/17 10:45 06/07/17 11:48 1/2 Normal Saline IV Not Given ASDIR SEAN Insulin Aspart 1 vial 06/05/17 22:00 06/07/17 11:50 Novolog Vial Sliding Scale - SQ 2 unit ACHS SEAN Administration Protocol Isosorbide Mononitrate 90 mg 06/06/17 10:00 06/07/17 10:03 Imdur - PO 90 mg DAILY SEAN Administration Lactobacillus Acidophilus 1 tab 06/06/17 10:00 06/07/17 10:03 Bacid - PO 1 tab DAILY SEAN Administration Metoprolol Succinate 75 mg 06/07/17 10:00 06/07/17 10:04 Toprol Xl - PO 75 mg BID SEAN Administration Polyethylene Glycol 17 gm 06/07/17 14:00 Miralax (For Daily Use) - PO TID SEAN Potassium Phos/Sodium Phos 1 packet 06/06/17 10:00 06/07/17 10:04 Phos-Nak Packet - PO 1 packet BID SEAN Administration ASSESSMENT/PLAN: Patient is an 86 year old female with significant past medical history of HTN, HLD, DM, CAD (s/p CABG), CVA, multiple UTI and dementia. She presents to the ED today for worsening left great toe redness and pus under the toe nail. Family and aide report that they noticed the left toe infection. As per daughter and PRESS ROOM SUPERVISOR, patient was having a charge authorizer come to the house, however, the charge authorizer recommended that the patient should be taken to the ED. On exam, left great toe is noted to be reddened, left foot is cool to the touch. No pus noted on exam. Patient denies chest pain, shortness of breath, headache and dizziness. She denies fever, chills, nausea, vomit, diarrhea and constipation. She denies dysuria, frequency, urgency and hematuria. Yesterday morning she was found to have several electrolyte abnormalities and it may be due likely to poor PO intake as well as multiple home laxative use. I spoke to patient daughter who fears that if we stop the Miralax TID an Colace TID, patient will have fecal impaction which has happened in the past. As per GI, can continue the Miralax and Colace as ordered. ID: Left Great Toe cellulitis, acute A/P: Foot xray ruled out acute fracture, MRI ordered to rule out osteo of LLE, has not yet been done Started on Vanco and Zosyn per ID Blood culture pending organism, contaminant?, repeated blood cultures Wound culture pending, urine culture pending organism Lactic acid now normal Podiatry following Electrolyte Imbalance, acute/now resolved Electrolyte Imbalance likely secondary to multiple home laxative use A/P: Family reports patient has severe constipation relieved only with Colace TID, Miralax TID Patient was hospitalized in 2016 with fecal impaction and had to be manually dis -impacted Found to have low levels of K@3.0, Chl 120, CO218, Calcium 5.6, Phos 1.4, Mag 1.0 on admission, all repleted Electrolyte imbalance now resolved Renal following GI: Chronic Constipation, may be contributing to electrolyte imbalance A/P: Family concerned over fecal impaction As per GI, can continue with Miralax and Colace both TID Patient is high risk for fecal impaction secondary to her poor PO intake and functional status : UTI rule out A/P: pus noted with valencia placement Urine cultures +, awaiting sensitivities Hx of ESBL in urine valencia in place, urine cloudy Strict intake and output Endocrine: Diabetes Mellitus A/P: sliding scale with Novolog coverage Hmga1c 7.1 Cardiology: Hyperlipidemia A/p: On Lipitor 20mg @ HS CAD S/p CABG A/p: On ASA 81mg daily Metoprolol 50mg daily, Plavix daily Hypertension, not controlled A/P: Increased dose of Metoprolol to 75mg BID, added Norvasc 10mg daily Monitor BP DVT: Proph: Heparin TID GI: Protonix F.E.N. Fluids: NS @ 75cc Electrolytes: as above Nutrition: low sodium Disposition: full code. Visit type - Emergency Visit Emergency Visit: Yes ED Registration Date: 06/05/17 Care time: The patient presented to the Emergency Department on the above date and was hospitalized for further evaluation of their emergent condition. - New Patient This patient is new to me today: No - Critical Care Critical Care patient: No - Discharge Referral Referred to [facility] No
--- NOTE | 2017-06-07 12:53 | PN ---
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 (short form) - Note 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: Renal Follow up for Electrolyte imbalance Pt seen and examined at the bedside awake and alert no overnight events Vital Signs Temperature 97.8 F 06/07/17 10:00 Pulse Rate 69 06/07/17 10:00 Respiratory Rate 20 06/07/17 10:00 Blood Pressure 184/94 06/07/17 10:00 O2 Sat by Pulse Oximetry (%) 98 06/06/17 21:00 Intake & Output 06/04/17 06/05/17 06/06/17 06/07/17 23:59 23:59 23:59 23:59 Intake Total 950 Output Total 1150 1900 Balance -200 -1900 Weight 102 lb 9.6 oz 102 lb 9.6 oz NAD awake and alert RRR, No M/R CTA soft NT no edema in LE CBC, BMP 06/07/17 06:10 06/07/17 06:10 Laboratory Tests 06/07/17 06/07/17 06/07/17 06:10 06:10 06:10 Lactic Acid 1.5 Calcium 8.9 Phosphorus 5.0 H D Magnesium 1.9 Current Medications Amlodipine Besylate (Norvasc -) 10 mg PO DAILY [facility] Last Admin: 06/07/17 10:03 Dose: 10 mg Aspirin (Asa -) 81 mg PO DAILY [facility] Last Admin: 06/06/17 10:16 Dose: 81 mg Atorvastatin Calcium (Lipitor -) 20 mg PO HS [facility] Last Admin: 06/06/17 21:28 Dose: 20 mg Calcium Carbonate (Calcium Carbonate -) 1,300 mg PO BID [facility] Last Admin: 06/07/17 10:03 Dose: 1,300 mg Clopidogrel Bisulfate (Plavix -) 75 mg PO DAILY [facility] Last Admin: 06/07/17 10:03 Dose: 75 mg Docusate Sodium (Colace -) 100 mg PO TID [facility] Last Admin: 06/07/17 05:53 Dose: 100 mg Duloxetine HCl (Cymbalta -) 20 mg PO DAILY [facility] Last Admin: 06/07/17 10:03 Dose: 20 mg Ferrous Sulfate (Feosol -) 325 mg PO DAILY [facility] Last Admin: 06/07/17 10:03 Dose: 325 mg Heparin Sodium (Porcine) (Heparin -) 5,000 unit SQ BID [facility] Last Admin: 06/07/17 10:03 Dose: 5,000 unit Vancomycin HCl 750 mg/ (Dextrose) 250 mls @ 250 mls/hr IVPB DAILY [facility] PRN Reason: Protocol Last Admin: 06/07/17 11:01 Dose: 250 mls/hr Piperacillin Sod/Tazobactam (Sod 2.25 gm/ Dextrose) 50 mls @ 100 mls/hr IVPB Q6H-IV SEAN PRN Reason: Protocol Last Admin: 06/07/17 10:01 Dose: 100 mls/hr Sodium Chloride (1/2 Normal Saline) 1,000 mls @ 83 mls/hr IV ASDIR [facility] Last Admin: 06/07/17 11:48 Dose: Not Given Insulin Aspart (Novolog Vial Sliding Scale -) 1 vial SQ ACHS SEAN PRN Reason: Protocol Last Admin: 06/07/17 11:50 Dose: 2 unit Isosorbide Mononitrate (Imdur -) 90 mg PO DAILY [facility] Last Admin: 06/07/17 10:03 Dose: 90 mg Lactobacillus Acidophilus (Bacid -) 1 tab PO DAILY [facility] Last Admin: 06/07/17 10:03 Dose: 1 tab Metoprolol Succinate (Toprol Xl -) 75 mg PO BID [facility] Last Admin: 06/07/17 10:04 Dose: 75 mg Polyethylene Glycol (Miralax (For Daily Use) -) 17 gm PO TID [facility] Potassium Phos/Sodium Phos (Phos-Nak Packet -) 1 packet PO BID [facility] Last Admin: 06/07/17 10:04 Dose: 1 packet 86 year old woman with PMhx of Hypertension, Hyperlipidemia, DM, CAD s/p CABG, CVA, Dementia who presented from [place] with suspected infection of her toe and found to have several electrolyte abnormalities. #Hypernatremia serum Na now improved to normal limits continue IVF for now #Hypocalcemia serum na is improved Continue Calcium carbonate #Hypokalemia/Hypomagnesemia improve d today #Hypophosphatemia resolved today #Non-anion gap metabolic acidosis now improved urine studies pending #Soft tissue infection continue Abx as per primary and ID Thank you Will follow Deyvi Hernandez DO Problem List - Problems (1) Hypomagnesemia Code(s): E83.42 - HYPOMAGNESEMIA (2) Hypocalcemia Code(s): E83.51 - HYPOCALCEMIA (3) Hypokalemia Code(s): E87.6 - HYPOKALEMIA (4) Hypertension Code(s): I10 - ESSENTIAL (PRIMARY) HYPERTENSION (5) Soft tissue infection of foot Code(s): L08.9 - LOCAL INFECTION OF THE SKIN AND SUBCUTANEOUS TISSUE, UNSP
--- NOTE | 2017-06-07 13:37 | PN ---
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, Physician History of Present Illness: stable doing well no new issues podiatry note noted - Current Medication List Current Medications: Active Medications Amlodipine Besylate (Norvasc -) 10 mg PO DAILY [facility] Last Admin: 06/07/17 10:03 Dose: 10 mg Aspirin (Asa -) 81 mg PO DAILY [facility] Last Admin: 06/06/17 10:16 Dose: 81 mg Atorvastatin Calcium (Lipitor -) 20 mg PO HS [facility] Last Admin: 06/06/17 21:28 Dose: 20 mg Calcium Carbonate (Calcium Carbonate -) 1,300 mg PO BID [facility] Last Admin: 06/07/17 10:03 Dose: 1,300 mg Clopidogrel Bisulfate (Plavix -) 75 mg PO DAILY [facility] Last Admin: 06/07/17 10:03 Dose: 75 mg Docusate Sodium (Colace -) 100 mg PO TID [facility] Last Admin: 06/07/17 05:53 Dose: 100 mg Duloxetine HCl (Cymbalta -) 20 mg PO DAILY [facility] Last Admin: 06/07/17 10:03 Dose: 20 mg Ferrous Sulfate (Feosol -) 325 mg PO DAILY [facility] Last Admin: 06/07/17 10:03 Dose: 325 mg Heparin Sodium (Porcine) (Heparin -) 5,000 unit SQ BID [facility] Last Admin: 06/07/17 10:03 Dose: 5,000 unit Vancomycin HCl 750 mg/ (Dextrose) 250 mls @ 250 mls/hr IVPB DAILY [facility] PRN Reason: Protocol Last Admin: 06/07/17 11:01 Dose: 250 mls/hr Piperacillin Sod/Tazobactam (Sod 2.25 gm/ Dextrose) 50 mls @ 100 mls/hr IVPB Q6H-IV [facility] PRN Reason: Protocol Last Admin: 06/07/17 10:01 Dose: 100 mls/hr Sodium Chloride (1/2 Normal Saline) 1,000 mls @ 83 mls/hr IV ASDIR [facility] Last Admin: 06/07/17 11:48 Dose: Not Given Insulin Aspart (Novolog Vial Sliding Scale -) 1 vial SQ ACHS [facility] PRN Reason: Protocol Last Admin: 06/07/17 11:50 Dose: 2 unit Isosorbide Mononitrate (Imdur -) 90 mg PO DAILY [facility] Last Admin: 06/07/17 10:03 Dose: 90 mg Lactobacillus Acidophilus (Bacid -) 1 tab PO DAILY [facility] Last Admin: 06/07/17 10:03 Dose: 1 tab Metoprolol Succinate (Toprol Xl -) 75 mg PO BID [facility] Last Admin: 06/07/17 10:04 Dose: 75 mg Polyethylene Glycol (Miralax (For Daily Use) -) 17 gm PO TID [facility] Potassium Phos/Sodium Phos (Phos-Nak Packet -) 1 packet PO BID [facility] Last Admin: 06/07/17 10:04 Dose: 1 packet - Objective Vital Signs: Vital Signs Temperature 97.8 F 06/07/17 10:00 Pulse Rate 69 06/07/17 10:00 Respiratory Rate 20 06/07/17 10:00 Blood Pressure 184/94 06/07/17 10:00 O2 Sat by Pulse Oximetry (%) 98 06/06/17 21:00 Constitutional: Yes: No Distress, Calm, Thin Cardiovascular: Yes: Regular Rate and Rhythm Respiratory: Yes: Regular, CTA Bilaterally Gastrointestinal: Yes: Normal Bowel Sounds, Soft Musculoskeletal: Yes: Other Extremities: Yes: Other Wound/Incision: Yes: Clean/Dry Neurological: Yes: Alert, Oriented Psychiatric: Yes: Alert Labs: CBC, BMP 06/07/17 06:10 06/07/17 06:10 INR, PTT INR 1.08 (0.82-1.09) 06/05/17 19:40 Assessment/Plan unspecified type Osteomyelitis location: foot Laterality: left Qualified Code( s): M86.9 - Osteomyelitis, unspecified; M86.9 - Osteomyelitis, unspecified; M86.9 - Osteomyelitis, unspecified uti plan continue abx mri of the leg cx report noted rest as per primary team and podiatry
[2017-06-07] MEDS ORDERED: PT OWN MED DRAWER 7, Y5N ONE (20:35)
[2017-06-07] MEDS: ATORVASTATIN CA 20 MG TABLET (FP) PO SCH (21:43)
[2017-06-08] MEDS ORDERED: PIPERACILLIN/TAZOBACTAM 2.25 GM VIAL IVPB ONE ×2 (02:33→10:31)
[2017-06-08] MEDS ORDERED: DEXTROSE 5%-WATER - 50 ML IVPB ONE ×2 (02:33→10:31)
[2017-06-08] MEDS: PIPERACILLIN/TAZOB 2.25 GM 2.25 GM in DEXTROSE 5%-WATER - 50 ML IVPB SCH ×4 (02:40→21:04)
[2017-06-08] MEDS: SODIUM CHLORIDE 0.45% 1,000 ML IV SCH ×3 (02:43→10:50)
[2017-06-08] MEDS: DOCUSATE SODIUM 100 MG CAPSULE (FP) PO SCH ×3 (05:37→21:06)
[2017-06-08] MEDS: POLYETHYLENE GLYCOL 3350 119 GM BTL PO SCH ×3 (05:37→21:10)
[2017-06-08] MEDS: INSULIN SLIDING SCALE (NOVOLOG) 1 VIAL SQ SCH ×4 (06:15→21:07)
[2017-06-08 07:21] LABS: BASOPHIL 0.1 % (0-2.0); MCH 28.2 pg (25.7-33.7); MCHC 32.9 g/dl (32.0-36.0); MEAN CELL VOLUME 85.7 fl (80-96); MEAN PLT VOLUME 7.9 fl (7.5-11.1); NEUTROPHILS 56.9 % (42.8-82.8); PLATELET COUNT 196 K/MM3 (134-434); RDW 15.8 % (11.6-15.6); WHITE BLOOD COUNT 7.2 K/mm3 (4.0-10.0)
[2017-06-08 08:03] LABS: ALBUMIN 2.9 g/dl (3.4-5.0); ALK PHOS 62 U/L (45-117); ANION GAP 8 (8-16); BILIRUBIN,TOTAL 0.4 mg/dL (0.2-1.0); CALCIUM 8.4 mg/dL (8.5-10.1); CO2 26 mmol/L (21-32); CREATININE 0.7 mg/dL (0.55-1.02); GLUCOSE,RANDOM 107 mg/dL (74-106); MAGNESIUM 1.8 mg/dL (1.8-2.4); PHOSPHOROUS 4.1 mg/dL (2.5-4.9); SGOT/AST 8 U/L (15-37); SGPT/ALT 12 U/L (12-78); TOT PROT 6.5 g/dl (6.4-8.2)
--- NOTE | 2017-06-08 08:54 | PN ---
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, Physician History of Present Illness: Chart reviewed. Comfortable. No events. Had BMs - Current Medication List Current Medications: Active Medications Amlodipine Besylate (Norvasc -) 10 mg PO DAILY [facility] Last Admin: 06/07/17 10:03 Dose: 10 mg Aspirin (Asa -) 81 mg PO DAILY [facility] Last Admin: 06/06/17 10:16 Dose: 81 mg Atorvastatin Calcium (Lipitor -) 20 mg PO HS [facility] Last Admin: 06/07/17 21:43 Dose: 20 mg Calcium Carbonate (Calcium Carbonate -) 1,300 mg PO BID [facility] Last Admin: 06/07/17 21:43 Dose: 1,300 mg Clopidogrel Bisulfate (Plavix -) 75 mg PO DAILY [facility] Last Admin: 06/07/17 10:03 Dose: 75 mg Docusate Sodium (Colace -) 100 mg PO TID [facility] Last Admin: 06/08/17 05:37 Dose: 100 mg Duloxetine HCl (Cymbalta -) 20 mg PO DAILY [facility] Last Admin: 06/07/17 10:03 Dose: 20 mg Ferrous Sulfate (Feosol -) 325 mg PO DAILY [facility] Last Admin: 06/07/17 10:03 Dose: 325 mg Heparin Sodium (Porcine) (Heparin -) 5,000 unit SQ BID [facility] Last Admin: 06/07/17 21:43 Dose: 5,000 unit Vancomycin HCl 750 mg/ (Dextrose) 250 mls @ 250 mls/hr IVPB DAILY [facility] PRN Reason: Protocol Last Admin: 06/07/17 11:01 Dose: 250 mls/hr Piperacillin Sod/Tazobactam (Sod 2.25 gm/ Dextrose) 50 mls @ 100 mls/hr IVPB Q6H-IV [facility] PRN Reason: Protocol Last Admin: 06/08/17 02:40 Dose: 100 mls/hr Sodium Chloride (1/2 Normal Saline) 1,000 mls @ 83 mls/hr IV ASDIR [facility] Last Admin: 06/07/17 20:15 Dose: 83 mls/hr Insulin Aspart (Novolog Vial Sliding Scale -) 1 vial SQ ACHS [facility] PRN Reason: Protocol Last Admin: 06/08/17 06:15 Dose: Not Given Isosorbide Mononitrate (Imdur -) 90 mg PO DAILY [facility] Last Admin: 06/07/17 10:03 Dose: 90 mg Lactobacillus Acidophilus (Bacid -) 1 tab PO DAILY [facility] Last Admin: 06/07/17 10:03 Dose: 1 tab Metoprolol Succinate (Toprol Xl -) 75 mg PO BID [facility] Last Admin: 06/07/17 21:44 Dose: Not Given Polyethylene Glycol (Miralax (For Daily Use) -) 17 gm PO TID [facility] Last Admin: 06/08/17 05:37 Dose: 17 gm Potassium Phos/Sodium Phos (Phos-Nak Packet -) 1 packet PO BID [facility] Last Admin: 06/07/17 21:44 Dose: 1 packet - Objective Vital Signs: Vital Signs Temperature 98.4 F 06/08/17 06:00 Pulse Rate 70 06/08/17 06:00 Respiratory Rate 20 06/08/17 06:00 Blood Pressure 145/61 06/08/17 06:00 O2 Sat by Pulse Oximetry (%) 98 06/06/17 21:00 Constitutional: Yes: No Distress, Calm Cardiovascular: Yes: Regular Rate and Rhythm Respiratory: Yes: Regular Gastrointestinal: Yes: Normal Bowel Sounds, Soft. No: Distention, Tenderness Labs: CBC, BMP 06/08/17 06:30 06/08/17 06:30 INR, PTT INR 1.08 (0.82-1.09) 06/05/17 19:40 Intake & Output 06/07/17 06/08/17 06/08/17 23:59 07:59 15:59 Intake Total 1297 1013 Output Total 400 1850 Balance 897 -837 Weight 103 lb 9.6 oz Intake: IV 747 913 1/2 Normal Saline 1,000 747 913 ml @ 83 mls/hr IV ASDIR [facility] Rx#:[id number] IVPB 350 100 Oral 200 Output: Urine 400 1850 [place] 400 1850 Other: Voiding Method Indwelling Catheter Bowel Movement No Problem List - Problems (1) Constipation, slow transit Assessment/Plan: Non-distended abdomen, no findings on abdominal exam. +Bms yesterday continue current management Code(s): K59.01 - SLOW TRANSIT CONSTIPATION (2) Electrolyte abnormality Code(s): E87.8 - OTH DISORDERS OF ELECTROLYTE AND FLUID BALANCE, NEC
[2017-06-08] MEDS ORDERED: PT OWN MED DRAWER 7, Y5N ONE (10:31)
[2017-06-08] MEDS ORDERED: INSULIN (NOVOLOG) ASPART 100 UNITS/ML 10ML VIAL ONE ×3 (10:45→21:02)
[2017-06-08] MEDS: METOPROLOL SUCCINATE 25 MG TAB.SR.24H (FP) PO SCH ×2 (10:48→21:08)
[2017-06-08] MEDS: DULoxetine HCL 20 MG CAPSULE.DR (FP) PO SCH (10:48)
[2017-06-08] MEDS: LACTOBACILLUS ACIDOPHILUS 1 EACH TAB (FP) PO SCH (10:48)
[2017-06-08] MEDS: CALCIUM CARBONATE 650 MG TABLET PO SCH ×2 (10:48→21:07)
[2017-06-08] MEDS: ISOSORBIDE MONONITRATE 30 MG TAB.SR.24H (FP) PO SCH (10:49)
[2017-06-08] MEDS: VANCOMYCIN 750 MG in DEXTROSE 5%-WATER - 250 ML IVPB SCH (10:49)
[2017-06-08] MEDS: amLODIPine BESYLATE 5 MG TABLET (FP) PO SCH (10:49)
[2017-06-08] MEDS: FERROUS SO4 325 MG TABLET (FP) PO SCH (10:49)
[2017-06-08] MEDS: NAPH,MB-DB/K PH,MBDB POWDER PACKET PO SCH ×2 (10:49→21:07)
[2017-06-08] MEDS: CLOPIDOGREL BISULFATE 75 MG TABLET (FP) PO SCH (10:49)
[2017-06-08] MEDS: HEPARIN NA (PORCINE) 5,000 UNITS/ML 1ML VIAL SQ SCH ×2 (10:49→21:06)
--- NOTE | 2017-06-08 12:18 | PN ---
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 (short form) - Note 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: Podiatry Brief Note: Partial nail avulsion of left great toe performed at bedside, no complications noted, patient tolerated procedure well. Upon inspection no active purulence noted. No palpable collection, no fluctuance noted. MRI shows questionable bone marrow edema distal phalanx, however does not appear to be osteomyelitis given clinical picture. Would not recommend formal surgical intervention. Epsom soaking and topical abx should assist in improving condition. If symptoms worsen will consider formal I&D procedure of nail fold. Juana Hemphill DPM
--- NOTE | 2017-06-08 12:37 | PN ---
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 (short form) - Note 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: Subjective: The patient was seen and examined at the bedside, she has no complaints at this time. Current Medications Generic Name Dose Route Start Last Admin Trade Name An PRN Reason Stop Dose Admin Amlodipine Besylate 10 mg 06/07/17 08:08 06/08/17 10:49 Norvasc - PO 10 mg DAILY [facility] Administration Aspirin 81 mg 06/06/17 10:00 06/06/17 10:16 Asa - PO 81 mg DAILY [facility] Administration Atorvastatin Calcium 20 mg 06/05/17 22:00 06/07/17 21:43 Lipitor - PO 20 mg HS [facility] Administration Calcium Carbonate 1,300 mg 06/06/17 11:00 06/08/17 10:48 Calcium Carbonate - PO 1,300 mg BID [facility] Administration Clopidogrel Bisulfate 75 mg 06/06/17 10:00 06/08/17 10:49 Plavix - PO 75 mg DAILY [facility] Administration Docusate Sodium 100 mg 06/05/17 22:00 06/08/17 05:37 Colace - PO 100 mg TID [facility] Administration Duloxetine HCl 20 mg 06/06/17 10:00 06/08/17 10:48 Cymbalta - PO 20 mg DAILY [facility] Administration Ferrous Sulfate 325 mg 06/06/17 10:00 06/08/17 10:49 Feosol - PO 325 mg DAILY [facility] Administration Heparin Sodium (Porcine) 5,000 unit 06/05/17 22:00 06/08/17 10:49 Heparin - SQ 5,000 unit BID [facility] Administration Vancomycin HCl 750 mg/ 250 mls @ 250 mls/hr 06/06/17 10:00 06/08/17 10:49 Dextrose IVPB 250 mls/hr DAILY [facility] Administration Protocol Piperacillin Sod/Tazobactam 50 mls @ 100 mls/hr 06/06/17 03:15 06/08/17 10:48 Sod 2.25 gm/ Dextrose IVPB 100 mls/hr Q6H-IV [facility] Administration Protocol Sodium Chloride 1,000 mls @ 83 mls/hr 06/06/17 10:45 06/08/17 10:50 1/2 Normal Saline IV Not Given ASDIR [facility] Insulin Aspart 1 vial 06/05/17 22:00 06/08/17 10:52 Novolog Vial Sliding Scale - SQ Not Given ACHS [facility] Protocol Isosorbide Mononitrate 90 mg 10/10/17 10:00 06/08/17 10:49 Imdur - PO 90 mg DAILY [facility] Administration Lactobacillus Acidophilus 1 tab 06/06/17 10:00 06/08/17 10:48 Bacid - PO 1 tab DAILY [facility] Administration Metoprolol Succinate 75 mg 06/07/17 10:00 06/08/17 10:48 Toprol Xl - PO 75 mg BID [facility] Administration Polyethylene Glycol 17 gm 06/07/17 14:00 06/08/17 05:37 Miralax (For Daily Use) - PO 17 gm TID [facility] Administration Potassium Phos/Sodium Phos 1 packet 06/06/17 10:00 06/08/17 10:49 Phos-Nak Packet - PO 1 packet BID [facility] Administration Objective: Vital Signs Period Temp Pulse Resp BP Sys/Iniguez Pulse Ox Last 24 Hr 98.1 F-99.7 F 70-84 17-20 97-154/50-82 98 Physical Exam: General: NAD, cachetic Lungs: CTA bilaterally Heart: RRR, S1S2 Abd: Soft, non-tender, non-distended. Normoactive bowel sounds Ext: Left foot with dressing, c/d/i. Thin, warm, well-perfused. 2+ DP/PT bilaterally Neuro: no focal deficits CBCD WBC 7.2 K/mm3 (4.0-10.0) 06/08/17 06:30 RBC 4.08 M/mm3 (3.60-5.2) 06/08/17 06:30 Hgb 11.5 GM/dL (10.7-15.3) 06/08/17 06:30 Hct 35.0 % (32.4-45.2) 06/08/17 06:30 MCV 85.7 fl (80-96) 06/08/17 06:30 MCHC 32.9 g/dl (32.0-36.0) 06/08/17 06:30 RDW 15.8 % (11.6-15.6) H 06/08/17 06:30 Plt Count 196 K/MM3 (134-434) 06/08/17 06:30 MPV 7.9 fl (7.5-11.1) 06/08/17 06:30 CMP Sodium 141 mmol/L (136-145) 06/08/17 06:30 Potassium 4.9 mmol/L (3.5-5.1) 06/08/17 06:30 Chloride 107 mmol/L (98-107) 06/08/17 06:30 Carbon Dioxide 26 mmol/L (21-32) 06/08/17 06:30 Anion Gap 8 (8-16) 06/08/17 06:30 BUN 13 mg/dL (7-18) 06/08/17 06:30 Creatinine 0.7 mg/dL (0.55-1.02) 06/08/17 06:30 Creat Clearance w eGFR > 60 (>60) 06/08/17 06:30 Random Glucose 107 mg/dL (74-106) H 06/08/17 06:30 Calcium 8.4 mg/dL (8.5-10.1) L 06/08/17 06:30 Total Bilirubin 0.4 mg/dL (0.2-1.0) D 06/08/17 06:30 AST 8 U/L (15-37) L 06/08/17 06:30 ALT 12 U/L (12-78) D 06/08/17 06:30 Alkaline Phosphatase 62 U/L (45-117) D 06/08/17 06:30 Total Protein 6.5 g/dl (6.4-8.2) D 06/08/17 06:30 Albumin 2.9 g/dl (3.4-5.0) L D 06/08/17 06:30 CARDIAC ENZYMES Creatine Kinase 24 IU/L (26-192) L 06/05/17 19:40 Troponin I < 0.02 ng/ml (0.00-0.05) 06/05/17 19:40 Microbiology 06/05/17 17:48 Urine - Urine Suprapubic Urine Culture - Final Pseudomonas Aeruginosa Pseudomonas Aeruginosa#2 06/05/17 17:50 Blood - Peripheral Venous Blood Culture - Preliminary Staphylococcus Coagulase Neg 06/07/17 07:35 Blood - Peripheral Venous Blood Culture - Preliminary NO GROWTH OBTAINED AFTER 24 HOURS, INCUBATION TO CONTINUE FOR 4 DAYS. 06/07/17 07:35 Blood - Peripheral Venous Blood Culture - Preliminary NO GROWTH OBTAINED AFTER 24 HOURS, INCUBATION TO CONTINUE FOR 4 DAYS. 06/05/17 17:50 Blood - Peripheral Venous Blood Culture - Preliminary NO GROWTH OBTAINED AFTER 48 HOURS, INCUBATION TO CONTINUE FOR 3 DAYS. 06/05/17 16:31 Abscess Gram Stain - Final 06/05/17 16:31 Abscess Wound Culture - Preliminary Staphylococcus Coagulase Neg Assessment: This is an 86 year old female with PMHx of NIDDM, recurrent ESBL utis, HTN, hyperlipidemia, TIA, dementia, CAD s/p CABG, who presented to the ED with worsening left great toe erythema and drainage from under the toe nail. Plan: 1) ID: Left great toe cellulitis and paronychia - S/p partial nail avulsion today - MRI left foot with soft tissue edema of the foot extending into the toes. Bone marrow edema of the distal phalanx of the first toe which is nonspecific. Question mild bone marrow edema of the distal tuft of the distal phalanges of the third and forth toes - Per podiatry, does not appear to be osteomyelitis given the clinical picture - [place] soaking - Stop Vanco - Continue Zosyn - Repeat blood cultures with NGTD - Appreciate ID consult Psuedomonas UTI - Continue Zosyn 2) GI: Chronic constipation - Continue Colace - Miralax tid - Appreciate GI consult 3) Endocrine: NIDDM - BGM ACHS - ISS ACHS 4) Cardiology: HTN - Continue Toprol XL - Continue Norvasc - Continue Imdur CAD s/p CABG - Continue ASA Hyperlipidemia - Continue Lipitor 5) F/E/N: - Monitor electrolytes - Puree diet 6) Prophylaxis: - Heparin 5,000u sq bid - PT evaluation 7) Dispo: - Requires continued inpatient care CODE STATUS: FULL CODE Visit type - Emergency Visit Emergency Visit: Yes ED Registration Date: 06/05/17 Care time: The patient presented to the Emergency Department on the above date and was hospitalized for further evaluation of their emergent condition. - New Patient This patient is new to me today: Yes Date on this admission: 06/08/17 - Critical Care Critical Care patient: No
--- NOTE | 2017-06-08 14:17 | PN ---
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, Physician History of Present Illness: patient stable podiatry note noted procedure done no complaints - Current Medication List Current Medications: Active Medications Amlodipine Besylate (Norvasc -) 10 mg PO DAILY [facility] Last Admin: 06/08/17 10:49 Dose: 10 mg Aspirin (Asa -) 81 mg PO DAILY [facility] Last Admin: 06/06/17 10:16 Dose: 81 mg Atorvastatin Calcium (Lipitor -) 20 mg PO HS [facility] Last Admin: 06/07/17 21:43 Dose: 20 mg Calcium Carbonate (Calcium Carbonate -) 1,300 mg PO BID [facility] Last Admin: 06/08/17 10:48 Dose: 1,300 mg Clopidogrel Bisulfate (Plavix -) 75 mg PO DAILY [facility] Last Admin: 06/08/17 10:49 Dose: 75 mg Docusate Sodium (Colace -) 100 mg PO TID [facility] Last Admin: 06/08/17 05:37 Dose: 100 mg Duloxetine HCl (Cymbalta -) 20 mg PO DAILY [facility] Last Admin: 06/08/17 10:48 Dose: 20 mg Ferrous Sulfate (Feosol -) 325 mg PO DAILY [facility] Last Admin: 06/08/17 10:49 Dose: 325 mg Heparin Sodium (Porcine) (Heparin -) 5,000 unit SQ BID [facility] Last Admin: 06/08/17 10:49 Dose: 5,000 unit Vancomycin HCl 750 mg/ (Dextrose) 250 mls @ 250 mls/hr IVPB DAILY [facility] PRN Reason: Protocol Last Admin: 06/08/17 10:49 Dose: 250 mls/hr Piperacillin Sod/Tazobactam (Sod 2.25 gm/ Dextrose) 50 mls @ 100 mls/hr IVPB Q6H-IV [facility] PRN Reason: Protocol Last Admin: 06/08/17 10:48 Dose: 100 mls/hr Sodium Chloride (1/2 Normal Saline) 1,000 mls @ 83 mls/hr IV ASDIR [facility] Last Admin: 06/08/17 10:50 Dose: Not Given Insulin Aspart (Novolog Vial Sliding Scale -) 1 vial SQ ACHS [facility] PRN Reason: Protocol Last Admin: 06/08/17 10:52 Dose: Not Given Isosorbide Mononitrate (Imdur -) 90 mg PO DAILY [facility] Last Admin: 06/08/17 10:49 Dose: 90 mg Lactobacillus Acidophilus (Bacid -) 1 tab PO DAILY [facility] Last Admin: 06/08/17 10:48 Dose: 1 tab Metoprolol Succinate (Toprol Xl -) 75 mg PO BID [facility] Last Admin: 06/08/17 10:48 Dose: 75 mg Polyethylene Glycol (Miralax (For Daily Use) -) 17 gm PO TID [facility] Last Admin: 06/08/17 05:37 Dose: 17 gm Potassium Phos/Sodium Phos (Phos-Nak Packet -) 1 packet PO BID [facility] Last Admin: 06/08/17 10:49 Dose: 1 packet - Objective Vital Signs: Vital Signs Temperature 98.5 F 06/08/17 08:00 Pulse Rate 79 06/08/17 08:00 Respiratory Rate 20 06/08/17 08:00 Blood Pressure 154/82 06/08/17 08:00 O2 Sat by Pulse Oximetry (%) 98 06/08/17 08:00 Constitutional: Yes: No Distress, Calm, Thin Cardiovascular: Yes: Regular Rate and Rhythm Respiratory: Yes: Regular, CTA Bilaterally Gastrointestinal: Yes: Normal Bowel Sounds, Soft Musculoskeletal: Yes: Other Extremities: Yes: Other Neurological: Yes: Alert, Other Psychiatric: Yes: Alert Labs: CBC, BMP 06/08/17 06:30 06/08/17 06:30 INR, PTT INR 1.08 (0.82-1.09) 06/05/17 19:40 - ....Imaging MRI: Report Reviewed, Image Reviewed Assessment/Plan unspecified type Osteomyelitis location: foot Laterality: left Qualified Code( s): M86.9 - Osteomyelitis, unspecified; M86.9 - Osteomyelitis, unspecified; M86.9 - Osteomyelitis, unspecified uti plan continue abx mri of the leg noted cx report noted will stop vanco continue zosyn
[2017-06-08] MEDS: ATORVASTATIN CA 20 MG TABLET (FP) PO SCH (21:05)
[2017-06-09] MEDS ORDERED: PT OWN MED DRAWER 7, Y5N ONE (01:38)
[2017-06-09] MEDS: PIPERACILLIN/TAZOB 2.25 GM 2.25 GM in DEXTROSE 5%-WATER - 50 ML IVPB SCH ×4 (02:04→21:40)
[2017-06-09] MEDS: SODIUM CHLORIDE 0.45% 1,000 ML IV SCH ×3 (02:05→17:17)
[2017-06-09] MEDS: DOCUSATE SODIUM 100 MG CAPSULE (FP) PO SCH ×3 (06:27→21:37)
[2017-06-09] MEDS: POLYETHYLENE GLYCOL 3350 119 GM BTL PO SCH ×3 (06:28→21:38)
[2017-06-09] MEDS: INSULIN SLIDING SCALE (NOVOLOG) 1 VIAL SQ SCH ×4 (06:28→21:44)
--- NOTE | 2017-06-09 08:17 | PN ---
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, Physician History of Present Illness: Chart reviewed. Comfortable. No events. No BMs in the last 12 hrs - Current Medication List Current Medications: Active Medications Amlodipine Besylate (Norvasc -) 10 mg PO DAILY [facility] Last Admin: 06/08/17 10:49 Dose: 10 mg Aspirin (Asa -) 81 mg PO DAILY [facility] Last Admin: 06/06/17 10:16 Dose: 81 mg Atorvastatin Calcium (Lipitor -) 20 mg PO HS [facility] Last Admin: 06/08/17 21:05 Dose: 20 mg Calcium Carbonate (Calcium Carbonate -) 1,300 mg PO BID [facility] Last Admin: 06/08/17 21:07 Dose: 1,300 mg Clopidogrel Bisulfate (Plavix -) 75 mg PO DAILY [facility] Last Admin: 06/08/17 10:49 Dose: 75 mg Docusate Sodium (Colace -) 100 mg PO TID [facility] Last Admin: 06/09/17 06:27 Dose: 100 mg Duloxetine HCl (Cymbalta -) 20 mg PO DAILY [facility] Last Admin: 06/08/17 10:48 Dose: 20 mg Ferrous Sulfate (Feosol -) 325 mg PO DAILY [facility] Last Admin: 06/08/17 10:49 Dose: 325 mg Heparin Sodium (Porcine) (Heparin -) 5,000 unit SQ BID [facility] Last Admin: 06/08/17 21:06 Dose: 5,000 unit Piperacillin Sod/Tazobactam (Sod 2.25 gm/ Dextrose) 50 mls @ 100 mls/hr IVPB Q6H-IV [facility] PRN Reason: Protocol Last Admin: 06/09/17 02:04 Dose: 100 mls/hr Sodium Chloride (1/2 Normal Saline) 1,000 mls @ 83 mls/hr IV ASDIR [facility] Last Admin: 06/09/17 02:05 Dose: 83 mls/hr Insulin Aspart (Novolog Vial Sliding Scale -) 1 vial SQ ACHS [facility] PRN Reason: Protocol Last Admin: 06/09/17 06:28 Dose: Not Given Isosorbide Mononitrate (Imdur -) 90 mg PO DAILY [facility] Last Admin: 06/08/17 10:49 Dose: 90 mg Lactobacillus Acidophilus (Bacid -) 1 tab PO DAILY [facility] Last Admin: 06/08/17 10:48 Dose: 1 tab Metoprolol Succinate (Toprol Xl -) 75 mg PO BID [facility] Last Admin: 10/12/17 21:08 Dose: 75 mg Polyethylene Glycol (Miralax (For Daily Use) -) 17 gm PO TID [facility] Last Admin: 06/09/17 06:28 Dose: 17 gm Potassium Phos/Sodium Phos (Phos-Nak Packet -) 1 packet PO BID [facility] Last Admin: 06/08/17 21:07 Dose: 1 packet - Objective Vital Signs: Vital Signs Temperature 97.7 F 06/09/17 06:00 Pulse Rate 64 06/09/17 06:00 Respiratory Rate 20 06/09/17 06:00 Blood Pressure 140/94 06/09/17 06:00 O2 Sat by Pulse Oximetry (%) 98 06/08/17 20:14 Constitutional: Yes: No Distress, Calm Gastrointestinal: Yes: Normal Bowel Sounds, Soft. No: Distention, Palpable Mass , Tenderness, Tenderness, Epigastrium, Tenderness, Rebound, Vomiting Labs: CBC, BMP 06/08/17 06:30 06/08/17 06:30 INR, PTT INR 1.08 (0.82-1.09) 06/05/17 19:40 Vital Signs Temp 97.7 F 06/09/17 06:00 Pulse 64 06/09/17 06:00 Resp 20 06/09/17 06:00 BP 140/94 06/09/17 06:00 Pulse Ox 98 06/08/17 20:14 Intake & Output 06/08/17 06/08/17 06/09/17 11:59 23:59 11:59 Intake Total 1013 1196 1013 Output Total 1850 700 Balance -043 688 6275 Intake: IV 913 646 913 1/2 Normal Saline 1,000 913 646 913 ml @ 83 mls/hr IV ASDIR [facility] Rx#:[id number] IVPB 100 350 100 Oral 200 Output: Urine 1850 700 [place] 1850 700 Other: Voiding Method Indwelling Catheter Indwelling Catheter Bowel Movement No Active Orders - 24 Hr 06/08/17 13:12 Physical Therapy Request Routine 06/08/17 15:12 Missing Dose Routine Home Medication List Medication Instructions Recorded Confirmed Type Clopidogrel Bisulfate [Plavix -] 75 mg PO DAILY 12/23/15 06/05/17 History Duloxetine HCl 20 mg PO DAILY 12/23/15 06/05/17 History Ferrous Sulfate 325 mg PO DAILY 12/23/15 06/05/17 History Isosorbide Mononitrate [Imdur -] 90 mg PO DAILY 12/23/15 06/05/17 History Metformin HCl 850 mg PO BID 12/23/15 06/05/17 History Polyethylene Glycol 3350 [Miralax 17 gm PO TID 12/23/15 06/05/17 History 119 gm Btl -] Active Medications Generic Name Dose Route Start Last Admin Trade Name An PRN Reason Stop Dose Admin Amlodipine Besylate 10 mg 06/07/17 08:08 06/08/17 10:49 Norvasc - PO 10 mg DAILY [facility] Administration Aspirin 81 mg 06/06/17 10:00 06/06/17 10:16 Asa - PO 81 mg DAILY [facility] Administration Atorvastatin Calcium 20 mg 06/05/17 22:00 06/08/17 21:05 Lipitor - PO 20 mg HS [facility] Administration Calcium Carbonate 1,300 mg 06/06/17 11:00 06/08/17 21:07 Calcium Carbonate - PO 1,300 mg BID [facility] Administration Clopidogrel Bisulfate 75 mg 06/06/17 10:00 06/08/17 10:49 Plavix - PO 75 mg DAILY [facility] Administration Docusate Sodium 100 mg 06/05/17 22:00 06/09/17 06:27 Colace - PO 100 mg TID [facility] Administration Duloxetine HCl 20 mg 06/06/17 10:00 06/08/17 10:48 Cymbalta - PO 20 mg DAILY [facility] Administration Ferrous Sulfate 325 mg 06/06/17 10:00 06/08/17 10:49 Feosol - PO 325 mg DAILY [facility] Administration Heparin Sodium (Porcine) 5,000 unit 06/05/17 22:00 06/08/17 21:06 Heparin - SQ 5,000 unit BID [facility] Administration Piperacillin Sod/Tazobactam 50 mls @ 100 mls/hr 06/06/17 03:15 06/09/17 02:04 Sod 2.25 gm/ Dextrose IVPB 100 mls/hr Q6H-IV [facility] Administration Protocol Sodium Chloride 1,000 mls @ 83 mls/hr 06/06/17 10:45 06/09/17 02:05 1/2 Normal Saline IV 83 mls/hr ASDIR [facility] Administration Insulin Aspart 1 vial 06/05/17 22:00 06/09/17 06:28 Novolog Vial Sliding Scale - SQ Not Given ACHS [facility] Protocol Isosorbide Mononitrate 90 mg 06/06/17 10:00 06/08/17 10:49 Imdur - PO 90 mg DAILY [facility] Administration Lactobacillus Acidophilus 1 tab 06/06/17 10:00 06/08/17 10:48 Bacid - PO 1 tab DAILY [facility] Administration Metoprolol Succinate 75 mg 06/07/17 10:00 06/08/17 21:08 Toprol Xl - PO 75 mg BID [facility] Administration Polyethylene Glycol 17 gm 06/07/17 14:00 06/09/17 06:28 Miralax (For Daily Use) - PO 17 gm TID [facility] Administration Potassium Phos/Sodium Phos 1 packet 06/06/17 10:00 06/08/17 21:07 Phos-Nak Packet - PO 1 packet BID [facility] Administration Problem List - Problems (1) Constipation, slow transit Assessment/Plan: Non-distended abdomen, no findings on abdominal exam. continue current bowel regiment monitor bms Code(s): K59.01 - SLOW TRANSIT CONSTIPATION (2) Electrolyte abnormality Code(s): E87.8 - OTH DISORDERS OF ELECTROLYTE AND FLUID BALANCE, NEC
[2017-06-09] MEDS ORDERED: INSULIN (NOVOLOG) ASPART 100 UNITS/ML 10ML VIAL ONE ×3 (10:26→21:26)
[2017-06-09] MEDS: DULoxetine HCL 20 MG CAPSULE.DR (FP) PO SCH (10:36)
[2017-06-09] MEDS: LACTOBACILLUS ACIDOPHILUS 1 EACH TAB (FP) PO SCH (10:36)
[2017-06-09] MEDS: ISOSORBIDE MONONITRATE 30 MG TAB.SR.24H (FP) PO SCH (10:36)
[2017-06-09] MEDS: CALCIUM CARBONATE 650 MG TABLET PO SCH ×2 (10:36→21:37)
[2017-06-09] MEDS: CLOPIDOGREL BISULFATE 75 MG TABLET (FP) PO SCH (10:36)
[2017-06-09] MEDS: FERROUS SO4 325 MG TABLET (FP) PO SCH (10:37)
[2017-06-09] MEDS: METOPROLOL SUCCINATE 25 MG TAB.SR.24H (FP) PO SCH ×2 (10:37→21:37)
[2017-06-09] MEDS: HEPARIN NA (PORCINE) 5,000 UNITS/ML 1ML VIAL SQ SCH ×2 (10:37→21:38)
[2017-06-09] MEDS: NAPH,MB-DB/K PH,MBDB POWDER PACKET PO SCH ×2 (10:37→21:39)
[2017-06-09] MEDS: amLODIPine BESYLATE 5 MG TABLET (FP) PO SCH (10:37)
--- NOTE | 2017-06-09 12:31 | PN ---
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 (short form) - Note 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: Renal Follow up for Electrolyte imbalance Pt seen and examined at the bedside no acute complaints reported some chest discomfort yesterday, none today V Vital Signs Temperature 98.0 F 06/09/17 08:00 Pulse Rate 65 06/09/17 08:00 Respiratory Rate 20 06/09/17 08:00 Blood Pressure 164/80 06/09/17 08:00 O2 Sat by Pulse Oximetry (%) 98 06/09/17 08:00 Intake & Output 06/06/17 06/07/17 06/08/17 06/09/17 23:59 23:59 23:59 23:59 Intake Total 950 1297 2209 1013 Output Total 1150 3800 2550 300 Balance -200 -2503 -341 713 Weight 102 lb 9.6 oz 103 lb 9.6 oz NAD awake and alert RRR, No M/R CTA soft NT no edema in LE CBC, BMP 06/08/17 06:30 06/08/17 06:30 Current Medications Amlodipine Besylate (Norvasc -) 10 mg PO DAILY [facility] Last Admin: 06/09/17 10:37 Dose: 10 mg Aspirin (Asa -) 81 mg PO DAILY [facility] Last Admin: 06/06/17 10:16 Dose: 81 mg Atorvastatin Calcium (Lipitor -) 20 mg PO HS [facility] Last Admin: 06/08/17 21:05 Dose: 20 mg Calcium Carbonate (Calcium Carbonate -) 1,300 mg PO BID [facility] Last Admin: 06/09/17 10:36 Dose: 1,300 mg Clopidogrel Bisulfate (Plavix -) 75 mg PO DAILY [facility] Last Admin: 06/09/17 10:36 Dose: 75 mg Docusate Sodium (Colace -) 100 mg PO TID [facility] Last Admin: 06/09/17 06:27 Dose: 100 mg Duloxetine HCl (Cymbalta -) 20 mg PO DAILY [facility] Last Admin: 06/09/17 10:36 Dose: 20 mg Ferrous Sulfate (Feosol -) 325 mg PO DAILY [facility] Last Admin: 06/09/17 10:37 Dose: 325 mg Heparin Sodium (Porcine) (Heparin -) 5,000 unit SQ BID [facility] Last Admin: 06/09/17 10:37 Dose: 5,000 unit Piperacillin Sod/Tazobactam (Sod 2.25 gm/ Dextrose) 50 mls @ 100 mls/hr IVPB Q6H-IV [facility] PRN Reason: Protocol Last Admin: 06/09/17 10:36 Dose: 100 mls/hr Sodium Chloride (1/2 Normal Saline) 1,000 mls @ 83 mls/hr IV ASDIR [facility] Last Admin: 06/09/17 10:38 Dose: Not Given Insulin Aspart (Novolog Vial Sliding Scale -) 1 vial SQ ACHS [facility] PRN Reason: Protocol Last Admin: 06/09/17 10:43 Dose: 2 unit Isosorbide Mononitrate (Imdur -) 90 mg PO DAILY [facility] Last Admin: 06/09/17 10:36 Dose: 90 mg Lactobacillus Acidophilus (Bacid -) 1 tab PO DAILY [facility] Last Admin: 06/09/17 10:36 Dose: 1 tab Metoprolol Succinate (Toprol Xl -) 75 mg PO BID [facility] Last Admin: 06/09/17 10:37 Dose: 75 mg Polyethylene Glycol (Miralax (For Daily Use) -) 17 gm PO TID [facility] Last Admin: 06/09/17 06:28 Dose: 17 gm Potassium Phos/Sodium Phos (Phos-Nak Packet -) 1 packet PO BID [facility] Last Admin: 06/09/17 10:37 Dose: 1 packet 86 year old woman with PMhx of Hypertension, Hyperlipidemia, DM, CAD s/p CABG, CVA, Dementia who presented from [place] with suspected infection of her toe and found to have several electrolyte abnormalities. #Multiple electroyte abnormaliteis all electrolytes are WNL corrected Ca is 8.2 #Soft tissue infection continue Abx as per primary and ID will jeovany valencia and do a trial of void Thank you Will follow Deyvi Hernandez DO Problem List - Problems (1) Hypomagnesemia Code(s): E83.42 - HYPOMAGNESEMIA (2) Hypocalcemia Code(s): E83.51 - HYPOCALCEMIA (3) Hypokalemia Code(s): E87.6 - HYPOKALEMIA (4) Hypertension Code(s): I10 - ESSENTIAL (PRIMARY) HYPERTENSION (5) Soft tissue infection of foot Code(s): L08.9 - LOCAL INFECTION OF THE SKIN AND SUBCUTANEOUS TISSUE, UNSP
--- NOTE | 2017-06-09 12:41 | PN ---
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, Physician History of Present Illness: patient stable podiatry note noted procedure done no complaints renal noted noted - Current Medication List Current Medications: Active Medications Amlodipine Besylate (Norvasc -) 10 mg PO DAILY [facility] Last Admin: 06/09/17 10:37 Dose: 10 mg Aspirin (Asa -) 81 mg PO DAILY [facility] Last Admin: 06/06/17 10:16 Dose: 81 mg Atorvastatin Calcium (Lipitor -) 20 mg PO HS [facility] Last Admin: 06/08/17 21:05 Dose: 20 mg Calcium Carbonate (Calcium Carbonate -) 1,300 mg PO BID [facility] Last Admin: 06/09/17 10:36 Dose: 1,300 mg Clopidogrel Bisulfate (Plavix -) 75 mg PO DAILY [facility] Last Admin: 06/09/17 10:36 Dose: 75 mg Docusate Sodium (Colace -) 100 mg PO TID [facility] Last Admin: 06/09/17 06:27 Dose: 100 mg Duloxetine HCl (Cymbalta -) 20 mg PO DAILY [facility] Last Admin: 06/09/17 10:36 Dose: 20 mg Ferrous Sulfate (Feosol -) 325 mg PO DAILY [facility] Last Admin: 06/09/17 10:37 Dose: 325 mg Heparin Sodium (Porcine) (Heparin -) 5,000 unit SQ BID [facility] Last Admin: 06/09/17 10:37 Dose: 5,000 unit Piperacillin Sod/Tazobactam (Sod 2.25 gm/ Dextrose) 50 mls @ 100 mls/hr IVPB Q6H-IV [facility] PRN Reason: Protocol Last Admin: 06/09/17 10:36 Dose: 100 mls/hr Sodium Chloride (1/2 Normal Saline) 1,000 mls @ 83 mls/hr IV ASDIR [facility] Last Admin: 06/09/17 10:38 Dose: Not Given Insulin Aspart (Novolog Vial Sliding Scale -) 1 vial SQ ACHS [facility] PRN Reason: Protocol Last Admin: 06/09/17 10:43 Dose: 2 unit Isosorbide Mononitrate (Imdur -) 90 mg PO DAILY [facility] Last Admin: 06/09/17 10:36 Dose: 90 mg Lactobacillus Acidophilus (Bacid -) 1 tab PO DAILY [facility] Last Admin: 06/09/17 10:36 Dose: 1 tab Metoprolol Succinate (Toprol Xl -) 75 mg PO BID [facility] Last Admin: 06/09/17 10:37 Dose: 75 mg Polyethylene Glycol (Miralax (For Daily Use) -) 17 gm PO TID [facility] Last Admin: 06/09/17 06:28 Dose: 17 gm Potassium Phos/Sodium Phos (Phos-Nak Packet -) 1 packet PO BID [facility] Last Admin: 06/09/17 10:37 Dose: 1 packet - Objective Vital Signs: Vital Signs Temperature 98.0 F 06/09/17 08:00 Pulse Rate 65 06/09/17 08:00 Respiratory Rate 20 06/09/17 08:00 Blood Pressure 164/80 06/09/17 08:00 O2 Sat by Pulse Oximetry (%) 98 06/09/17 08:00 Constitutional: Yes: No Distress, Calm, Thin Cardiovascular: Yes: Regular Rate and Rhythm Respiratory: Yes: Regular, CTA Bilaterally Gastrointestinal: Yes: Normal Bowel Sounds, Soft Musculoskeletal: Yes: WNL Extremities: Yes: Other Neurological: Yes: Alert Psychiatric: Yes: Alert Labs: CBC, BMP 06/08/17 06:30 06/08/17 06:30 INR, PTT INR 1.08 (0.82-1.09) 06/05/17 19:40 Assessment/Plan unspecified type Osteomyelitis location: foot Laterality: left Qualified Code( s): M86.9 - Osteomyelitis, unspecified; M86.9 - Osteomyelitis, unspecified; M86.9 - Osteomyelitis, unspecified onchomycosis uti plan continue abx renal note noted will order nystatin ointment
--- NOTE | 2017-06-09 13:50 | PN ---
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 (short form) - Note 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: Subjective: The patient was seen and examined at the bedside, she has no complaints at this time. Current Medications Generic Name Dose Route Start Last Admin Trade Name An PRN Reason Stop Dose Admin Amlodipine Besylate 10 mg 06/07/17 08:08 06/08/17 10:49 Norvasc - PO 10 mg DAILY [facility] Administration Aspirin 81 mg 06/06/17 10:00 06/06/17 10:16 Asa - PO 81 mg DAILY [facility]AN Administration Atorvastatin Calcium 20 mg 06/05/17 22:00 06/07/17 21:43 Lipitor - PO 20 mg HS SEAN Administration Calcium Carbonate 1,300 mg 06/06/17 11:00 06/08/17 10:48 Calcium Carbonate - PO 1,300 mg BID SEAN Administration Clopidogrel Bisulfate 75 mg 06/06/17 10:00 06/08/17 10:49 Plavix - PO 75 mg DAILY [facility] Administration Docusate Sodium 100 mg 06/05/17 22:00 06/08/17 05:37 Colace - PO 100 mg TID SEAN Administration Duloxetine HCl 20 mg 06/06/17 10:00 06/08/17 10:48 Cymbalta - PO 20 mg DAILY [facility] Administration Ferrous Sulfate 325 mg 06/06/17 10:00 06/08/17 10:49 Feosol - PO 325 mg DAILY [facility] Administration Heparin Sodium (Porcine) 5,000 unit 06/05/17 22:00 06/08/17 10:49 Heparin - SQ 5,000 unit BID [facility] Administration Vancomycin HCl 750 mg/ 250 mls @ 250 mls/hr 06/06/17 10:00 06/08/17 10:49 Dextrose IVPB 250 mls/hr DAILY [facility] Administration Protocol Piperacillin Sod/Tazobactam 50 mls @ 100 mls/hr 06/06/17 03:15 06/08/17 10:48 Sod 2.25 gm/ Dextrose IVPB 100 mls/hr Q6H-IV [facility] Administration Protocol Sodium Chloride 1,000 mls @ 83 mls/hr 06/06/17 10:45 06/08/17 10:50 1/2 Normal Saline IV Not Given ASDIR SEAN Insulin Aspart 1 vial 06/05/17 22:00 06/08/17 10:52 Novolog Vial Sliding Scale - SQ Not Given ACHS SEAN Protocol Isosorbide Mononitrate 90 mg 10/10/17 10:00 06/08/17 10:49 Imdur - PO 90 mg DAILY [facility] Administration Lactobacillus Acidophilus 1 tab 06/06/17 10:00 06/08/17 10:48 Bacid - PO 1 tab DAILY [facility] Administration Metoprolol Succinate 75 mg 06/07/17 10:00 06/08/17 10:48 Toprol Xl - PO 75 mg BID [facility] Administration Polyethylene Glycol 17 gm 06/07/17 14:00 06/08/17 05:37 Miralax (For Daily Use) - PO 17 gm TID [facility] Administration Potassium Phos/Sodium Phos 1 packet 06/06/17 10:00 06/08/17 10:49 Phos-Nak Packet - PO 1 packet BID SEAN Administration Objective: Vital Signs Period Temp Pulse Resp BP Sys/Iniguez Pulse Ox Last 24 Hr 98.1 F-99.7 F 70-84 17-20 97-154/50-82 98 Physical Exam: General: NAD, cachetic Lungs: CTA bilaterally Heart: RRR, S1S2 Abd: Soft, non-tender, non-distended. Normoactive bowel sounds Ext: Left foot with dressing, c/d/i. Thin, warm, well-perfused. 2+ DP/PT bilaterally Neuro: no focal deficits CBCD WBC 7.2 K/mm3 (4.0-10.0) 06/08/17 06:30 RBC 4.08 M/mm3 (3.60-5.2) 06/08/17 06:30 Hgb 11.5 GM/dL (10.7-15.3) 06/08/17 06:30 Hct 35.0 % (32.4-45.2) 06/08/17 06:30 MCV 85.7 fl (80-96) 06/08/17 06:30 MCHC 32.9 g/dl (32.0-36.0) 06/08/17 06:30 RDW 15.8 % (11.6-15.6) H 06/08/17 06:30 Plt Count 196 K/MM3 (134-434) 06/08/17 06:30 MPV 7.9 fl (7.5-11.1) 06/08/17 06:30 CMP Sodium 141 mmol/L (136-145) 06/08/17 06:30 Potassium 4.9 mmol/L (3.5-5.1) 06/08/17 06:30 Chloride 107 mmol/L (98-107) 06/08/17 06:30 Carbon Dioxide 26 mmol/L (21-32) 06/08/17 06:30 Anion Gap 8 (8-16) 06/08/17 06:30 BUN 13 mg/dL (7-18) 06/08/17 06:30 Creatinine 0.7 mg/dL (0.55-1.02) 06/08/17 06:30 Creat Clearance w eGFR > 60 (>60) 06/08/17 06:30 Random Glucose 107 mg/dL (74-106) H 06/08/17 06:30 Calcium 8.4 mg/dL (8.5-10.1) L 06/08/17 06:30 Total Bilirubin 0.4 mg/dL (0.2-1.0) D 06/08/17 06:30 AST 8 U/L (15-37) L 06/08/17 06:30 ALT 12 U/L (12-78) D 06/08/17 06:30 Alkaline Phosphatase 62 U/L (45-117) D 06/08/17 06:30 Total Protein 6.5 g/dl (6.4-8.2) D 06/08/17 06:30 Albumin 2.9 g/dl (3.4-5.0) L D 06/08/17 06:30 CARDIAC ENZYMES Creatine Kinase 24 IU/L (26-192) L 06/05/17 19:40 Troponin I < 0.02 ng/ml (0.00-0.05) 06/05/17 19:40 Microbiology 06/05/17 17:48 Urine - Urine Suprapubic Urine Culture - Final Pseudomonas Aeruginosa Pseudomonas Aeruginosa#2 06/05/17 17:50 Blood - Peripheral Venous Blood Culture - Preliminary Staphylococcus Coagulase Neg 06/07/17 07:35 Blood - Peripheral Venous Blood Culture - Preliminary NO GROWTH OBTAINED AFTER 24 HOURS, INCUBATION TO CONTINUE FOR 4 DAYS. 06/07/17 07:35 Blood - Peripheral Venous Blood Culture - Preliminary NO GROWTH OBTAINED AFTER 24 HOURS, INCUBATION TO CONTINUE FOR 4 DAYS. 06/05/17 17:50 Blood - Peripheral Venous Blood Culture - Preliminary NO GROWTH OBTAINED AFTER 48 HOURS, INCUBATION TO CONTINUE FOR 3 DAYS. 06/05/17 16:31 Abscess Gram Stain - Final 06/05/17 16:31 Abscess Wound Culture - Preliminary Staphylococcus Coagulase Neg Assessment: This is an 86 year old female with PMHx of NIDDM, recurrent ESBL utis, HTN, hyperlipidemia, TIA, dementia, CAD s/p CABG, who presented to the ED with worsening left great toe erythema and drainage from under the toe nail. Plan: 1) ID: Left great toe cellulitis and paronychia - S/p partial nail avulsion on 06/08 - MRI left foot with soft tissue edema of the foot extending into the toes. Bone marrow edema of the distal phalanx of the first toe which is nonspecific. Question mild bone marrow edema of the distal tuft of the distal phalanges of the third and forth toes - Per podiatry, does not appear to be osteomyelitis given the clinical picture - [place] soaking - Continue Zosyn until Monday per ID - Repeat blood cultures with NGTD - Appreciate ID consult Psuedomonas UTI - Continue Zosyn 2) GI: Chronic constipation - Continue Colace - Miralax tid - Appreciate GI consult 3) Endocrine: NIDDM - BGM ACHS - ISS ACHS 4) Cardiology: HTN - Continue Toprol XL - Continue Norvasc - Continue Imdur CAD s/p CABG - Continue ASA Hyperlipidemia - Continue Lipitor 5) F/E/N: - Monitor electrolytes - Puree diet - Hypocalcemia: Calcium carbonate 1,300mg po bid 6) Prophylaxis: - Heparin 5,000u sq bid - PT evaluation: poor sitting balance 7) Dispo: - Requires continued inpatient care CODE STATUS: FULL CODE Visit type - Emergency Visit Emergency Visit: Yes ED Registration Date: 06/05/17 Care time: The patient presented to the Emergency Department on the above date and was hospitalized for further evaluation of their emergent condition. - New Patient This patient is new to me today: No - Critical Care Critical Care patient: No
[2017-06-09] MEDS: NYSTATIN 100,000 UNIT/GM TOPICAL CREAM 15 GM TUBE TP SCH ×2 (15:33→21:38)
[2017-06-09] MEDS: ATORVASTATIN CA 20 MG TABLET (FP) PO SCH (21:38)
[2017-06-09] MEDS: PIPERACILLIN/TAZOB 2.25 GM 50 ML IVPB SCH (21:40)
[2017-06-10] MEDS: PIPERACILLIN/TAZOB 2.25 GM 50 ML IVPB SCH ×4 (02:27→21:37)
[2017-06-10] MEDS: DOCUSATE SODIUM 100 MG CAPSULE (FP) PO SCH ×3 (06:39→21:37)
[2017-06-10] MEDS: POLYETHYLENE GLYCOL 3350 119 GM BTL PO SCH ×3 (06:39→21:38)
[2017-06-10] MEDS: INSULIN SLIDING SCALE (NOVOLOG) 1 VIAL SQ SCH ×4 (06:39→21:42)
[2017-06-10] MEDS: SODIUM CHLORIDE 0.45% 1,000 ML IV SCH ×3 (06:41→19:38)
[2017-06-10] MEDS: ISOSORBIDE MONONITRATE 30 MG TAB.SR.24H (FP) PO SCH (09:45)
[2017-06-10] MEDS: CALCIUM CARBONATE 650 MG TABLET PO SCH ×2 (09:45→21:37)
[2017-06-10] MEDS: FERROUS SO4 325 MG TABLET (FP) PO SCH (09:45)
[2017-06-10] MEDS: DULoxetine HCL 20 MG CAPSULE.DR (FP) PO SCH (09:45)
[2017-06-10] MEDS: amLODIPine BESYLATE 5 MG TABLET (FP) PO SCH (09:45)
[2017-06-10] MEDS: CLOPIDOGREL BISULFATE 75 MG TABLET (FP) PO SCH (09:45)
[2017-06-10] MEDS: LACTOBACILLUS ACIDOPHILUS 1 EACH TAB (FP) PO SCH (09:45)
[2017-06-10] MEDS: METOPROLOL SUCCINATE 25 MG TAB.SR.24H (FP) PO SCH ×2 (09:45→21:38)
[2017-06-10] MEDS: NAPH,MB-DB/K PH,MBDB POWDER PACKET PO SCH ×2 (09:45→21:38)
[2017-06-10] MEDS: NYSTATIN 100,000 UNIT/GM TOPICAL CREAM 15 GM TUBE TP SCH ×2 (09:46→21:39)
[2017-06-10] MEDS: HEPARIN NA (PORCINE) 5,000 UNITS/ML 1ML VIAL SQ SCH ×2 (09:54→21:37)
--- NOTE | 2017-06-10 09:54 | PN ---
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 (short form) - Note 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: Renal Follow up for Electrolyte imbalance Pt seen and examined at the bedside no acute complaints Vital Signs Temperature 98.2 F 06/10/17 06:05 Pulse Rate 66 06/10/17 06:05 Respiratory Rate 20 06/10/17 06:05 Blood Pressure 137/61 06/10/17 06:05 O2 Sat by Pulse Oximetry (%) 98 06/09/17 21:00 Intake & Output 06/07/17 06/08/17 06/09/17 06/10/17 23:59 23:59 23:59 23:59 Intake Total 1297 2209 3691 714 Output Total 3800 2550 3400 1100 Balance -2503 -341 291 -386 Weight 103 lb 9.6 oz NAD awake and alert RRR, No M/R CTA soft NT no edema in LE CBC, BMP 06/08/17 06:30 06/08/17 06:30 Current Medications Amlodipine Besylate (Norvasc -) 10 mg PO DAILY [facility] Last Admin: 06/09/17 10:37 Dose: 10 mg Aspirin (Asa -) 81 mg PO DAILY [facility] Last Admin: 06/06/17 10:16 Dose: 81 mg Atorvastatin Calcium (Lipitor -) 20 mg PO HS [facility] Last Admin: 06/09/17 21:38 Dose: 20 mg Calcium Carbonate (Calcium Carbonate -) 1,300 mg PO BID [facility] Last Admin: 06/09/17 21:37 Dose: 1,300 mg Clopidogrel Bisulfate (Plavix -) 75 mg PO DAILY [facility] Last Admin: 06/09/17 10:36 Dose: 75 mg Docusate Sodium (Colace -) 100 mg PO TID [facility] Last Admin: 06/10/17 06:39 Dose: 100 mg Duloxetine HCl (Cymbalta -) 20 mg PO DAILY [facility] Last Admin: 06/09/17 10:36 Dose: 20 mg Ferrous Sulfate (Feosol -) 325 mg PO DAILY [facility] Last Admin: 06/09/17 10:37 Dose: 325 mg Heparin Sodium (Porcine) (Heparin -) 5,000 unit SQ BID [facility] Last Admin: 06/09/17 21:38 Dose: 5,000 unit Sodium Chloride (1/2 Normal Saline) 1,000 mls @ 83 mls/hr IV ASDIR [facility] Last Admin: 06/10/17 06:41 Dose: 83 mls/hr Piperacillin/Tazobactam/Dextrose (Zosyn 2.25gm Ivpb (Premix)) 50 mls @ 100 mls/ hr IVPB Q6H-IV [facility] PRN Reason: Protocol Last Admin: 06/10/17 02:27 Dose: 100 mls/hr Insulin Aspart (Novolog Vial Sliding Scale -) 1 vial SQ ACHS [facility] PRN Reason: Protocol Last Admin: 06/10/17 06:39 Dose: Not Given Isosorbide Mononitrate (Imdur -) 90 mg PO DAILY [facility] Last Admin: 06/09/17 10:36 Dose: 90 mg Lactobacillus Acidophilus (Bacid -) 1 tab PO DAILY [facility] Last Admin: 06/09/17 10:36 Dose: 1 tab Metoprolol Succinate (Toprol Xl -) 75 mg PO BID [facility] Last Admin: 06/09/17 21:37 Dose: 75 mg Nystatin (Mycostatin Cream -) 1 applic TP BID [facility] Last Admin: 06/09/17 21:38 Dose: 1 applic Polyethylene Glycol (Miralax (For Daily Use) -) 17 gm PO TID [facility] Last Admin: 06/10/17 06:39 Dose: 17 gm Potassium Phos/Sodium Phos (Phos-Nak Packet -) 1 packet PO BID [facility] Last Admin: 06/09/17 21:39 Dose: 1 packet 86 year old woman with PMhx of Hypertension, Hyperlipidemia, DM, CAD s/p CABG, CVA, Dementia who presented from [place] with suspected infection of her toe and found to have several electrolyte abnormalities. #Multiple electroyte abnormaliteis all electrolytes are WNL #Soft tissue infection continue Abx as per primary and ID #Urinry retention failed trial of void valencia restarted consider urology consult Thank you Will follow Deyvi Hernandez DO Problem List - Problems (1) Hypomagnesemia Code(s): E83.42 - HYPOMAGNESEMIA (2) Hypocalcemia Code(s): E83.51 - HYPOCALCEMIA (3) Hypokalemia Code(s): E87.6 - HYPOKALEMIA (4) Hypertension Code(s): I10 - ESSENTIAL (PRIMARY) HYPERTENSION (5) Soft tissue infection of foot Code(s): L08.9 - LOCAL INFECTION OF THE SKIN AND SUBCUTANEOUS TISSUE, UNSP
--- NOTE | 2017-06-10 14:23 | PN ---
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, Physician Chief Complaint: ID progress note History of Present Illness: Pt seen and examined. Chart, imaging, labs noted. Pt is alert and responsive, c/ o abd discomfort with constipation. Afebrile, without other specific complaints. - Current Medication List Current Medications: Active Medications Amino Acids (Prosource No Carb Liquid Pkt) 30 ml PO BID@0800,1730 [facility] Amlodipine Besylate (Norvasc -) 10 mg PO DAILY [facility] Last Admin: 06/10/17 09:45 Dose: 10 mg Aspirin (Asa -) 81 mg PO DAILY [facility] Last Admin: 06/06/17 10:16 Dose: 81 mg Atorvastatin Calcium (Lipitor -) 20 mg PO HS [facility] Last Admin: 06/09/17 21:38 Dose: 20 mg Calcium Carbonate (Calcium Carbonate -) 1,300 mg PO BID [facility] Last Admin: 06/10/17 09:45 Dose: 1,300 mg Clopidogrel Bisulfate (Plavix -) 75 mg PO DAILY [facility] Last Admin: 06/10/17 09:45 Dose: 75 mg Docusate Sodium (Colace -) 100 mg PO TID [facility] Last Admin: 06/10/17 06:39 Dose: 100 mg Duloxetine HCl (Cymbalta -) 20 mg PO DAILY [facility] Last Admin: 06/10/17 09:45 Dose: 20 mg Ferrous Sulfate (Feosol -) 325 mg PO DAILY [facility] Last Admin: 06/10/17 09:45 Dose: 325 mg Heparin Sodium (Porcine) (Heparin -) 5,000 unit SQ BID [facility] Last Admin: 06/10/17 09:54 Dose: 5,000 unit Sodium Chloride (1/2 Normal Saline) 1,000 mls @ 83 mls/hr IV ASDIR [facility] Last Admin: 06/10/17 12:05 Dose: Not Given Piperacillin/Tazobactam/Dextrose (Zosyn 2.25gm Ivpb (Premix)) 50 mls @ 100 mls/ hr IVPB Q6H-IV [facility] PRN Reason: Protocol Last Admin: 06/10/17 09:43 Dose: 100 mls/hr Insulin Aspart (Novolog Vial Sliding Scale -) 1 vial SQ ACHS [facility] PRN Reason: Protocol Last Admin: 06/10/17 12:04 Dose: 8 unit Isosorbide Mononitrate (Imdur -) 90 mg PO DAILY [facility] Last Admin: 06/10/17 09:45 Dose: 90 mg Lactobacillus Acidophilus (Bacid -) 1 tab PO DAILY [facility] Last Admin: 06/10/17 09:45 Dose: 1 tab Metoprolol Succinate (Toprol Xl -) 75 mg PO BID [facility] Last Admin: 06/10/17 09:45 Dose: 75 mg Multivitamins/Minerals/Vitamin C (Tab-A-Vit -) 1 tab PO DAILY [facility] Nystatin (Mycostatin Cream -) 1 applic TP BID [facility] Last Admin: 06/10/17 09:46 Dose: 1 applic Polyethylene Glycol (Miralax (For Daily Use) -) 17 gm PO TID [facility] Last Admin: 06/10/17 06:39 Dose: 17 gm Potassium Phos/Sodium Phos (Phos-Nak Packet -) 1 packet PO BID [facility] Last Admin: 06/10/17 09:45 Dose: 1 packet - Objective Vital Signs: Vital Signs Temperature 97.8 F 06/10/17 10:00 Pulse Rate 60 06/10/17 10:00 Respiratory Rate 20 06/10/17 10:00 Blood Pressure 162/75 06/10/17 10:00 O2 Sat by Pulse Oximetry (%) 98 06/09/17 21:00 Constitutional: Yes: No Distress. No: Well Nourished, Calm, Anxious, Ashen, Cachectic, Diaphoresis, Mild Distress, Moderate Distress, Severe Distress, Obese , Pallor, Poor Hygeine, Thin, Other HENT: Yes: WNL. No: Atraumatic, Normocephalic, Drooling, Epistaxis, Hoarseness , Nasal Congestion, Pharyngeal Erythema, Rhinnorhea, Thrush, Tonsillar Exudate, Other Cardiovascular: Yes: Regular Rate and Rhythm. No: WNL, Bradycardia, Tachycardia , Pulse Irregular, Bruit, JVD, Gallop, Murmur, Rub, S1, S2, S3, S4, Varicosities , Other Respiratory: Yes: CTA Bilaterally. No: WNL, Regular, Accessory Muscle Use, Bradypnea, Marcel-Lozano, Cough, Diminished, Dullness, Hyperresonant, Intubated , Kussmaul, Mechanically Ventilated, On BiPap, On Nasal O2, On Venti-Mask, Orthopnea, Poor Air Entry, Rales, Rhonchi, SOB, SOB on Exertion, Stridor, Tachypnea, Wheezes, Other Gastrointestinal: Yes: Normal Bowel Sounds, Soft Genitourinary: Yes: Other (suprapubic catheter) Extremities: Yes: Other (Lt foot edema, no draining wound, ointment applied, no significant erythema or tenderness) Wound/Incision: Yes: Clean/Dry Neurological: Yes: Alert Psychiatric: Yes: Alert Labs: CBC, BMP 06/08/17 06:30 06/08/17 06:30 INR, PTT INR 1.08 (0.82-1.09) 06/05/17 19:40 Microbiology 06/05/17 17:50 Blood - Peripheral Venous Blood Culture - Final Staph Capitis Subsp Capitis 06/07/17 07:35 Blood - Peripheral Venous Blood Culture - Preliminary NO GROWTH OBTAINED AFTER 72 HOURS, INCUBATION TO CONTINUE FOR 2 DAYS. 06/07/17 07:35 Blood - Peripheral Venous Blood Culture - Preliminary NO GROWTH OBTAINED AFTER 72 HOURS, INCUBATION TO CONTINUE FOR 2 DAYS. 06/05/17 17:50 Blood - Peripheral Venous Blood Culture - Preliminary NO GROWTH OBTAINED AFTER 96 HOURS, INCUBATION TO CONTINUE FOR 1 DAYS. 06/05/17 16:31 Abscess Gram Stain - Final 06/05/17 16:31 Abscess Wound Culture - Final Staphylococcus Lugdunensis 06/05/17 17:48 Urine - Urine Suprapubic Urine Culture - Final Pseudomonas Aeruginosa Pseudomonas Aeruginosa#2 - ....Imaging MRI: Report Reviewed Problem List - Problems (1) Sepsis affecting skin Code(s): A41.9 - SEPSIS, UNSPECIFIED ORGANISM (2) Soft tissue infection of foot Code(s): L08.9 - LOCAL INFECTION OF THE SKIN AND SUBCUTANEOUS TISSUE, UNSP (3) UTI (lower urinary tract infection) Code(s): N39.0 - URINARY TRACT INFECTION, SITE NOT SPECIFIED (4) CAD (coronary artery disease) Code(s): I25.10 - ATHSCL HEART DISEASE OF [place] CORONARY ARTERY W/O ANG PCTRS Qualifiers: Coronary Disease-Associated Artery/Lesion type: bypass graft [place] vs. transplanted heart: [place] heart Associated angina: with stable angina Qualified Code(s): I25.709 - Atherosclerosis of coronary artery bypass graft(s), unspecified, with unspecified angina pectoris; I25.709 - Atherosclerosis of coronary artery bypass graft(s), unspecified, with unspecified angina pectoris; I25.709 - Atherosclerosis of coronary artery bypass graft(s), unspecified, with unspecified angina pectoris; I25.709 - Atherosclerosis of coronary artery bypass graft(s), unspecified, with unspecified angina pectoris (5) CVA (cerebral infarction) Code(s): I63.9 - CEREBRAL INFARCTION, UNSPECIFIED Qualifiers: Cerebral infarction mechanism: unspecified mechanism Qualified Code(s) : I63.9 - Cerebral infarction, unspecified; I63.9 - Cerebral infarction, unspecified; I63.9 - Cerebral infarction, unspecified; I63.9 - Cerebral infarction, unspecified (6) Diabetes type 2, uncontrolled Code(s): E11.65 - TYPE 2 DIABETES MELLITUS WITH HYPERGLYCEMIA Qualifiers: Diabetes mellitus complication status: with hyperglycemia Diabetes mellitus director long term care insulin use: unspecified alf insulin use status Qualified Code(s): E11.65 - Type 2 diabetes mellitus with hyperglycemia; E11.65 - Type 2 diabetes mellitus with hyperglycemia; E11.65 - Type 2 diabetes mellitus with hyperglycemia; E11.65 - Type 2 diabetes mellitus with hyperglycemia (7) S/P CABG (coronary artery bypass graft) Code(s): Z95.1 - PRESENCE OF AORTOCORONARY BYPASS GRAFT Assessment/Plan Lt toe/foot cellulitis Pt appears stable for now repeat Blood cultures cont antibiotics for now
[2017-06-10] MEDS ORDERED: ACETAMINOPHEN 325 MG TABLET (FP) PO PRN (14:51)
[2017-06-10] MEDS: AMINO ACIDS/PROTEIN HYDROLYS 30 ML LIQUID.PKT PO SCH (17:16)
[2017-06-10] MEDS ORDERED: PT OWN MED DRAWER 7, Y5N ONE (21:15)
[2017-06-10] MEDS: ATORVASTATIN CA 20 MG TABLET (FP) PO SCH (21:37)
[2017-06-10] MEDS ORDERED: INSULIN (NOVOLOG) ASPART 100 UNITS/ML 10ML VIAL ONE (21:48)
[2017-06-11] MEDS ORDERED: PT OWN MED DRAWER 7, Y5N ONE ×2 (02:08→21:08)
[2017-06-11] MEDS: PIPERACILLIN/TAZOB 2.25 GM 50 ML IVPB SCH ×4 (02:20→21:15)
[2017-06-11] MEDS: POLYETHYLENE GLYCOL 3350 119 GM BTL PO SCH ×3 (05:41→21:16)
[2017-06-11] MEDS: DOCUSATE SODIUM 100 MG CAPSULE (FP) PO SCH ×3 (05:41→21:15)
[2017-06-11] MEDS: INSULIN SLIDING SCALE (NOVOLOG) 1 VIAL SQ SCH ×4 (07:22→21:21)
[2017-06-11 07:48] LABS: MCH 28.2 pg (25.7-33.7); MCHC 32.9 g/dl (32.0-36.0); MEAN CELL VOLUME 85.8 fl (80-96); MEAN PLT VOLUME 8.2 fl (7.5-11.1); PLATELET COUNT 197 K/MM3 (134-434); RDW 16.2 % (11.6-15.6); WHITE BLOOD COUNT 6.8 K/mm3 (4.0-10.0)
[2017-06-11 08:08] LABS: CALCIUM 8.6 mg/dL (8.5-10.1)
[2017-06-11 08:15] LABS: ALBUMIN 2.8 g/dl (3.4-5.0); ALK PHOS 46 U/L (45-117); ANION GAP 7 (8-16); BILIRUBIN,TOTAL 0.4 mg/dL (0.2-1.0); CO2 27 mmol/L (21-32); GLUCOSE,RANDOM 119 mg/dL (74-106); SGOT/AST 8 U/L (15-37); SGPT/ALT 10 U/L (12-78); TOT PROT 6.4 g/dl (6.4-8.2)
[2017-06-11] MEDS: CLOPIDOGREL BISULFATE 75 MG TABLET (FP) PO SCH (09:03)
[2017-06-11] MEDS: HEPARIN NA (PORCINE) 5,000 UNITS/ML 1ML VIAL SQ SCH ×2 (09:03→21:15)
[2017-06-11] MEDS: CALCIUM CARBONATE 650 MG TABLET PO SCH ×2 (09:03→21:15)
[2017-06-11] MEDS: MULTIVITAMINS (DAILY MVI) TABLET (FP) PO SCH (09:03)
[2017-06-11] MEDS: LACTOBACILLUS ACIDOPHILUS 1 EACH TAB (FP) PO SCH (09:03)
[2017-06-11] MEDS: amLODIPine BESYLATE 5 MG TABLET (FP) PO SCH (09:03)
[2017-06-11] MEDS: DULoxetine HCL 20 MG CAPSULE.DR (FP) PO SCH (09:03)
[2017-06-11] MEDS: ISOSORBIDE MONONITRATE 30 MG TAB.SR.24H (FP) PO SCH (09:03)
[2017-06-11] MEDS: FERROUS SO4 325 MG TABLET (FP) PO SCH (09:03)
[2017-06-11] MEDS: AMINO ACIDS/PROTEIN HYDROLYS 30 ML LIQUID.PKT PO SCH ×2 (09:03→17:20)
[2017-06-11] MEDS: METOPROLOL SUCCINATE 25 MG TAB.SR.24H (FP) PO SCH ×2 (09:03→21:18)
[2017-06-11] MEDS: NAPH,MB-DB/K PH,MBDB POWDER PACKET PO SCH ×2 (09:04→21:16)
[2017-06-11] MEDS: SODIUM CHLORIDE 0.45% 1,000 ML IV SCH ×3 (09:22→23:02)
[2017-06-11] MEDS: NYSTATIN 100,000 UNIT/GM TOPICAL CREAM 15 GM TUBE TP SCH ×2 (09:22→21:18)
--- NOTE | 2017-06-11 09:54 | PN ---
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 (short form) - Note 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: Subjective: The patient was seen and examined at the bedside, she states she feels better and that she wants to eat more potatoes. Current Medications Generic Name Dose Route Start Last Admin Trade Name Freq PRN Reason Stop Dose Admin Acetaminophen 650 mg 06/10/17 14:51 06/10/17 15:30 Tylenol - PO 650 mg Q6H PRN Administration FEVER OR PAIN Amino Acids 30 ml 06/10/17 17:30 06/11/17 09:03 Prosource No Carb Liquid Pkt PO 30 ml BID@0800,1730 [facility] Administration Amlodipine Besylate 10 mg 06/07/17 08:08 06/11/17 09:03 Norvasc - PO 10 mg DAILY [facility] Administration Aspirin 81 mg 06/06/17 10:00 06/06/17 10:16 Asa - PO 81 mg DAILY [facility] Administration Atorvastatin Calcium 20 mg 06/05/17 22:00 06/10/17 21:37 Lipitor - PO 20 mg HS [facility] Administration Calcium Carbonate 1,300 mg 06/06/17 11:00 06/11/17 09:03 Calcium Carbonate - PO 1,300 mg BID [facility] Administration Clopidogrel Bisulfate 75 mg 06/06/17 10:00 06/11/17 09:03 Plavix - PO 75 mg DAILY [facility] Administration Docusate Sodium 100 mg 06/05/17 22:00 06/11/17 05:41 Colace - PO 100 mg TID [facility] Administration Duloxetine HCl 20 mg 06/06/17 10:00 06/11/17 09:03 Cymbalta - PO 20 mg DAILY [facility] Administration Ferrous Sulfate 325 mg 06/06/17 10:00 06/11/17 09:03 Feosol - PO 325 mg DAILY [facility] Administration Heparin Sodium (Porcine) 5,000 unit 06/05/17 22:00 06/11/17 09:03 Heparin - SQ 5,000 unit BID [facility] Administration Sodium Chloride 1,000 mls @ 83 mls/hr 06/06/17 10:45 06/11/17 09:22 1/2 Normal Saline IV 83 mls/hr ASDIR [facility] Administration Piperacillin/Tazobactam/Dextrose 50 mls @ 100 mls/hr 06/09/17 21:25 06/11/17 09 :08 Zosyn 2.25gm Ivpb (Premix) IVPB 100 mls/hr Q6H-IV [facility] Administration Protocol Insulin Aspart 1 vial 06/05/17 22:00 06/11/17 07:22 Novolog Vial Sliding Scale - SQ Not Given ACHS [facility] Protocol Isosorbide Mononitrate 90 mg 06/06/17 10:00 06/11/17 09:03 Imdur - PO 90 mg DAILY [facility] Administration Lactobacillus Acidophilus 1 tab 06/06/17 10:00 06/11/17 09:03 Bacid - PO 1 tab DAILY [facility] Administration Metoprolol Succinate 75 mg 06/07/17 10:00 06/11/17 09:03 Toprol Xl - PO 75 mg BID [facility] Administration Multivitamins/Minerals/Vitamin C 1 tab 06/11/17 10:00 06/11/17 09:03 Tab-A-Vit - PO 1 tab DAILY [facility] Administration Nystatin 1 applic 06/09/17 13:30 06/11/17 09:22 Mycostatin Cream - TP 1 applic BID [facility] Administration Polyethylene Glycol 17 gm 06/07/17 14:00 06/11/17 05:41 Miralax (For Daily Use) - PO 17 gm TID [facility] Administration Potassium Phos/Sodium Phos 1 packet 06/06/17 10:00 06/11/17 09:04 Phos-Nak Packet - PO 1 packet BID [facility] Administration Objective: Vital Signs Period Temp Pulse Resp BP Sys/Iniguez Pulse Ox Last 24 Hr 97.4 F-98.4 F 60-74 18-20 108-168/55-75 Physical Exam: General: NAD, cachetic Lungs: CTA bilaterally Heart: RRR, S1S2 Abd: Soft, non-tender, non-distended. Normoactive bowel sounds Ext: Thickened toe nails. Thin, warm, well-perfused. 2+ DP/PT bilaterally Neuro: no focal deficits CBCD WBC 6.8 K/mm3 (4.0-10.0) 06/11/17 06:40 RBC 3.97 M/mm3 (3.60-5.2) 06/11/17 06:40 Hgb 11.2 GM/dL (10.7-15.3) 06/11/17 06:40 Hct 34.1 % (32.4-45.2) 06/11/17 06:40 MCV 85.8 fl (80-96) 06/11/17 06:40 MCHC 32.9 g/dl (32.0-36.0) 06/11/17 06:40 RDW 16.2 % (11.6-15.6) H 06/11/17 06:40 Plt Count 197 K/MM3 (134-434) 06/11/17 06:40 MPV 8.2 fl (7.5-11.1) 06/11/17 06:40 CMP Sodium 140 mmol/L (136-145) 06/11/17 06:40 Potassium 4.7 mmol/L (3.5-5.1) 06/11/17 06:40 Chloride 106 mmol/L (98-107) 06/11/17 06:40 Carbon Dioxide 27 mmol/L (21-32) 06/11/17 06:40 Anion Gap 7 (8-16) L 06/11/17 06:40 BUN 22 mg/dL (7-18) H D 06/11/17 06:40 Creatinine 1.0 mg/dL (0.55-1.02) D 06/11/17 06:40 Creat Clearance w eGFR 52.45 (>60) 06/11/17 06:40 Random Glucose 119 mg/dL (74-106) H 06/11/17 06:40 Calcium 8.6 mg/dL (8.5-10.1) 06/11/17 06:40 Total Bilirubin 0.4 mg/dL (0.2-1.0) 06/11/17 06:40 AST 8 U/L (15-37) L 06/11/17 06:40 ALT 10 U/L (12-78) L 06/11/17 06:40 Alkaline Phosphatase 46 U/L (45-117) D 06/11/17 06:40 Total Protein 6.4 g/dl (6.4-8.2) 06/11/17 06:40 Albumin 2.8 g/dl (3.4-5.0) L 06/11/17 06:40 CARDIAC ENZYMES Creatine Kinase 24 IU/L (26-192) L 06/05/17 19:40 Troponin I < 0.02 ng/ml (0.00-0.05) 06/05/17 19:40 Microbiology 06/07/17 07:35 Blood - Peripheral Venous Blood Culture - Preliminary NO GROWTH OBTAINED AFTER 96 HOURS, INCUBATION TO CONTINUE FOR 1 DAYS. 06/07/17 07:35 Blood - Peripheral Venous Blood Culture - Preliminary NO GROWTH OBTAINED AFTER 96 HOURS, INCUBATION TO CONTINUE FOR 1 DAYS. 06/05/17 17:50 Blood - Peripheral Venous Blood Culture - Final NO GROWTH AFTER 5 DAYS INCUBATION 06/05/17 17:50 Blood - Peripheral Venous Blood Culture - Final Staph Capitis Subsp Capitis 06/05/17 16:31 Abscess Gram Stain - Final 06/05/17 16:31 Abscess Wound Culture - Final Staphylococcus Lugdunensis 06/05/17 17:48 Urine - Urine Suprapubic Urine Culture - Final Pseudomonas Aeruginosa Pseudomonas Aeruginosa#2 Assessment: This is an 86 year old female with PMHx of NIDDM, recurrent ESBL utis, HTN, hyperlipidemia, TIA, dementia, CAD s/p CABG, who presented to the ED with worsening left great toe erythema and drainage from under the toe nail. Plan: 1) ID: Left great toe cellulitis and paronychia - S/p partial nail avulsion on 06/08 - MRI left foot with soft tissue edema of the foot extending into the toes. Bone marrow edema of the distal phalanx of the first toe which is nonspecific. Question mild bone marrow edema of the distal tuft of the distal phalanges of the third and forth toes - Per podiatry, does not appear to be osteomyelitis given the clinical picture - [place]ps[place] soaking - Continue Zosyn until Monday per ID - Repeat blood cultures with NGTD - Appreciate ID consult Psuedomonas UTI - Continue Zosyn Blood culture as above: abx per ID 2) GI: Chronic constipation - Continue Colace - Miralax tid - Appreciate GI consult 3) Endocrine: NIDDM - BGM ACHS - ISS ACHS 4) Cardiology: HTN - Continue Toprol XL - Continue Norvasc - Continue Imdur CAD s/p CABG - Continue ASA Hyperlipidemia - Continue Lipitor 5) F/E/N: - Monitor electrolytes - Puree diet - Hypocalcemia: resolved - Protein malnutrition as evidence by muscle loss (temples, clavices, and prominent sternoclavicular joint), low albumin, low BMI 6) Prophylaxis: - Heparin 5,000u sq bid - PT evaluation: poor sitting balance 7) Dispo: - Requires continued inpatient care CODE STATUS: FULL CODE Visit type - Emergency Visit Emergency Visit: Yes ED Registration Date: 06/05/17 Care time: The patient presented to the Emergency Department on the above date and was hospitalized for further evaluation of their emergent condition. - New Patient This patient is new to me today: No - Critical Care Critical Care patient: No
--- NOTE | 2017-06-11 14:17 | PN ---
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, Physician Chief Complaint: I.D. Progress note History of Present Illness: Pt seen and examined. States she feels well. No specific complaints. Denies pain in LE. - Current Medication List Current Medications: Active Medications Acetaminophen (Tylenol -) 650 mg PO Q6H PRN PRN Reason: FEVER OR PAIN Last Admin: 06/10/17 15:30 Dose: 650 mg Amino Acids (Prosource No Carb Liquid Pkt) 30 ml PO BID@0800,1730 [facility] Last Admin: 06/11/17 09:03 Dose: 30 ml Amlodipine Besylate (Norvasc -) 10 mg PO DAILY [facility] Last Admin: 06/11/17 09:03 Dose: 10 mg Aspirin (Asa -) 81 mg PO DAILY [facility] Last Admin: 06/06/17 10:16 Dose: 81 mg Atorvastatin Calcium (Lipitor -) 20 mg PO HS [facility] Last Admin: 06/10/17 21:37 Dose: 20 mg Calcium Carbonate (Calcium Carbonate -) 1,300 mg PO BID [facility] Last Admin: 06/11/17 09:03 Dose: 1,300 mg Clopidogrel Bisulfate (Plavix -) 75 mg PO DAILY [facility] Last Admin: 06/11/17 09:03 Dose: 75 mg Docusate Sodium (Colace -) 100 mg PO TID [facility] Last Admin: 06/11/17 05:41 Dose: 100 mg Duloxetine HCl (Cymbalta -) 20 mg PO DAILY [facility] Last Admin: 06/11/17 09:03 Dose: 20 mg Ferrous Sulfate (Feosol -) 325 mg PO DAILY [facility] Last Admin: 06/11/17 09:03 Dose: 325 mg Heparin Sodium (Porcine) (Heparin -) 5,000 unit SQ BID [facility] Last Admin: 06/11/17 09:03 Dose: 5,000 unit Sodium Chloride (1/2 Normal Saline) 1,000 mls @ 83 mls/hr IV ASDIR [facility] Last Admin: 06/11/17 11:58 Dose: Not Given Piperacillin/Tazobactam/Dextrose (Zosyn 2.25gm Ivpb (Premix)) 50 mls @ 100 mls/ hr IVPB Q6H-IV [facility] PRN Reason: Protocol Last Admin: 06/11/17 09:08 Dose: 100 mls/hr Insulin Aspart (Novolog Vial Sliding Scale -) 1 vial SQ ACHS [facility] PRN Reason: Protocol Last Admin: 06/11/17 12:00 Dose: 6 unit Isosorbide Mononitrate (Imdur -) 90 mg PO DAILY [facility] Last Admin: 06/11/17 09:03 Dose: 90 mg Lactobacillus Acidophilus (Bacid -) 1 tab PO DAILY [facility] Last Admin: 06/11/17 09:03 Dose: 1 tab Metoprolol Succinate (Toprol Xl -) 75 mg PO BID [facility] Last Admin: 06/11/17 09:03 Dose: 75 mg Multivitamins/Minerals/Vitamin C (Tab-A-Vit -) 1 tab PO DAILY [facility] Last Admin: 06/11/17 09:03 Dose: 1 tab Nystatin (Mycostatin Cream -) 1 applic TP BID [facility] Last Admin: 06/11/17 09:22 Dose: 1 applic Polyethylene Glycol (Miralax (For Daily Use) -) 17 gm PO TID [facility] Last Admin: 06/11/17 05:41 Dose: 17 gm Potassium Phos/Sodium Phos (Phos-Nak Packet -) 1 packet PO BID [facility] Last Admin: 06/11/17 09:04 Dose: 1 packet - Objective Vital Signs: Vital Signs Temperature 97.7 F 06/11/17 09:10 Pulse Rate 60 06/11/17 09:10 Respiratory Rate 20 06/11/17 09:10 Blood Pressure 146/73 06/11/17 09:10 O2 Sat by Pulse Oximetry (%) 98 06/09/17 21:00 Constitutional: Yes: No Distress, Calm HENT: Yes: Atraumatic Neck: Yes: Supple Cardiovascular: Yes: Regular Rate and Rhythm Respiratory: Yes: Regular Gastrointestinal: Yes: Normal Bowel Sounds, Soft Genitourinary: Yes: WNL Extremities: Yes: Other (Lt 4th toe minimal erythema, dry Lt foot with mild edema, no tenderness) Edema: Yes Edema: LLE: 1+ (Lt foot) Wound/Incision: Yes: Clean/Dry Neurological: Yes: Alert, Oriented Labs: CBC, BMP 06/11/17 06:40 06/11/17 06:40 INR, PTT INR 1.08 (0.82-1.09) 06/05/17 19:40 Microbiology 06/07/17 07:35 Blood Culture - Preliminary Blood - Peripheral Venous NO GROWTH OBTAINED AFTER 96 HOURS, INCUBATION TO CONTINUE FOR 1 DAYS. 06/07/17 07:35 Blood Culture - Preliminary Blood - Peripheral Venous NO GROWTH OBTAINED AFTER 96 HOURS, INCUBATION TO CONTINUE FOR 1 DAYS. 06/05/17 17:50 Blood Culture - Final Blood - Peripheral Venous NO GROWTH AFTER 5 DAYS INCUBATION 06/05/17 17:50 Blood Culture - Final Blood - Peripheral Venous Staph Capitis Subsp Capitis Problem List - Problems (1) Sepsis affecting skin Code(s): A41.9 - SEPSIS, UNSPECIFIED ORGANISM (2) Soft tissue infection of foot Code(s): L08.9 - LOCAL INFECTION OF THE SKIN AND SUBCUTANEOUS TISSUE, UNSP (3) UTI (lower urinary tract infection) Code(s): N39.0 - URINARY TRACT INFECTION, SITE NOT SPECIFIED (4) CAD (coronary artery disease) Code(s): I25.10 - ATHSCL HEART DISEASE OF [place] CORONARY ARTERY W/O ANG PCTRS Qualifiers: Qualified Code(s): I25.708 - Atherosclerosis of coronary artery bypass graft(s), unspecified, with other forms of angina pectoris; I25.708 - Atherosclerosis of coronary artery bypass graft(s), unspecified, with other forms of angina pectoris; I25.708 - Atherosclerosis of coronary artery bypass graft(s), unspecified, with other forms of angina pectoris; I25.708 - Atherosclerosis of coronary artery bypass graft(s), unspecified, with other forms of angina pectoris (5) CVA (cerebral infarction) Code(s): I63.9 - CEREBRAL INFARCTION, UNSPECIFIED Qualifiers: Qualified Code(s): I63.9 - Cerebral infarction, unspecified; I63.9 - Cerebral infarction, unspecified; I63.9 - Cerebral infarction, unspecified; I63.9 - Cerebral infarction, unspecified (6) Diabetes type 2, uncontrolled Code(s): E11.65 - TYPE 2 DIABETES MELLITUS WITH HYPERGLYCEMIA Qualifiers: Qualified Code(s): E11.65 - Type 2 diabetes mellitus with hyperglycemia ; E11.65 - Type 2 diabetes mellitus with hyperglycemia; E11.65 - Type 2 diabetes mellitus with hyperglycemia; E11.65 - Type 2 diabetes mellitus with hyperglycemia (7) S/P CABG (coronary artery bypass graft) Code(s): Z95.1 - PRESENCE OF AORTOCORONARY BYPASS GRAFT Assessment/Plan Left toe cellulitis s/p drainage, Lt foot cellulitis - appears to be improving UTI cont antibiotics for now f/u pending labs
[2017-06-11] MEDS ORDERED: INSULIN (NOVOLOG) ASPART 100 UNITS/ML 10ML VIAL ONE ×2 (17:21→21:09)
[2017-06-11] MEDS: ATORVASTATIN CA 20 MG TABLET (FP) PO SCH (21:15)
[2017-06-12] MEDS: PIPERACILLIN/TAZOB 2.25 GM 50 ML IVPB SCH ×4 (02:11→20:58)
[2017-06-12] MEDS: DOCUSATE SODIUM 100 MG CAPSULE (FP) PO SCH ×3 (06:23→20:59)
[2017-06-12] MEDS: POLYETHYLENE GLYCOL 3350 119 GM BTL PO SCH ×3 (06:23→21:07)
[2017-06-12] MEDS: INSULIN SLIDING SCALE (NOVOLOG) 1 VIAL SQ SCH ×4 (06:24→21:06)
[2017-06-12] MEDS: AMINO ACIDS/PROTEIN HYDROLYS 30 ML LIQUID.PKT PO SCH ×2 (09:34→17:55)
[2017-06-12] MEDS: DULoxetine HCL 20 MG CAPSULE.DR (FP) PO SCH (09:34)
[2017-06-12] MEDS: CALCIUM CARBONATE 650 MG TABLET PO SCH ×2 (09:34→20:59)
[2017-06-12] MEDS: amLODIPine BESYLATE 5 MG TABLET (FP) PO SCH (09:34)
[2017-06-12] MEDS: HEPARIN NA (PORCINE) 5,000 UNITS/ML 1ML VIAL SQ SCH ×2 (09:35→20:59)
[2017-06-12] MEDS: MULTIVITAMINS (DAILY MVI) TABLET (FP) PO SCH (09:35)
[2017-06-12] MEDS: FERROUS SO4 325 MG TABLET (FP) PO SCH (09:35)
[2017-06-12] MEDS: ASPIRIN 81 MG CHEWABLE TABLETS PO SCH (09:35)
[2017-06-12] MEDS: METOPROLOL SUCCINATE 25 MG TAB.SR.24H (FP) PO SCH ×2 (09:35→21:00)
[2017-06-12] MEDS: NAPH,MB-DB/K PH,MBDB POWDER PACKET PO SCH (09:35)
[2017-06-12] MEDS: CLOPIDOGREL BISULFATE 75 MG TABLET (FP) PO SCH (09:35)
[2017-06-12] MEDS: ISOSORBIDE MONONITRATE 30 MG TAB.SR.24H (FP) PO SCH (09:35)
[2017-06-12] MEDS: LACTOBACILLUS ACIDOPHILUS 1 EACH TAB (FP) PO SCH (09:35)
--- NOTE | 2017-06-12 09:48 | PN ---
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, Physician History of Present Illness: Chart reviewed. Comfortable. No events. has BMs. - Current Medication List Current Medications: Active Medications Acetaminophen (Tylenol -) 650 mg PO Q6H PRN PRN Reason: FEVER OR PAIN Last Admin: 06/10/17 15:30 Dose: 650 mg Amino Acids (Prosource No Carb Liquid Pkt) 30 ml PO BID@0800,1730 [facility] Last Admin: 06/12/17 09:34 Dose: 30 ml Amlodipine Besylate (Norvasc -) 10 mg PO DAILY [facility] Last Admin: 06/12/17 09:34 Dose: 10 mg Aspirin (Asa -) 81 mg PO DAILY [facility] Last Admin: 06/12/17 09:35 Dose: 81 mg Atorvastatin Calcium (Lipitor -) 20 mg PO HS [facility] Last Admin: 06/11/17 21:15 Dose: 20 mg Calcium Carbonate (Calcium Carbonate -) 1,300 mg PO BID [facility] Last Admin: 06/12/17 09:34 Dose: 1,300 mg Clopidogrel Bisulfate (Plavix -) 75 mg PO DAILY [facility] Last Admin: 06/12/17 09:35 Dose: 75 mg Docusate Sodium (Colace -) 100 mg PO TID [facility] Last Admin: 06/12/17 06:23 Dose: 100 mg Duloxetine HCl (Cymbalta -) 20 mg PO DAILY [facility] Last Admin: 06/12/17 09:34 Dose: 20 mg Ferrous Sulfate (Feosol -) 325 mg PO DAILY [facility] Last Admin: 06/12/17 09:35 Dose: 325 mg Heparin Sodium (Porcine) (Heparin -) 5,000 unit SQ BID [facility] Last Admin: 06/12/17 09:35 Dose: 5,000 unit Sodium Chloride (1/2 Normal Saline) 1,000 mls @ 83 mls/hr IV ASDIR [facility] Last Admin: 06/11/17 23:02 Dose: 83 mls/hr Piperacillin/Tazobactam/Dextrose (Zosyn 2.25gm Ivpb (Premix)) 50 mls @ 100 mls/ hr IVPB Q6H-IV [facility] PRN Reason: Protocol Last Admin: 06/12/17 09:17 Dose: 100 mls/hr Insulin Aspart (Novolog Vial Sliding Scale -) 1 vial SQ ACHS [facility] PRN Reason: Protocol Last Admin: 06/12/17 06:24 Dose: Not Given Isosorbide Mononitrate (Imdur -) 90 mg PO DAILY [facility] Last Admin: 06/12/17 09:35 Dose: 90 mg Lactobacillus Acidophilus (Bacid -) 1 tab PO DAILY [facility] Last Admin: 06/12/17 09:35 Dose: 1 tab Metoprolol Succinate (Toprol Xl -) 75 mg PO BID [facility] Last Admin: 06/12/17 09:35 Dose: 75 mg Multivitamins/Minerals/Vitamin C (Tab-A-Vit -) 1 tab PO DAILY [facility] Last Admin: 06/12/17 09:35 Dose: 1 tab Nystatin (Mycostatin Cream -) 1 applic TP BID [facility] Last Admin: 06/11/17 21:18 Dose: 1 applic Polyethylene Glycol (Miralax (For Daily Use) -) 17 gm PO TID [facility] Last Admin: 06/12/17 06:23 Dose: 17 gm Potassium Phos/Sodium Phos (Phos-Nak Packet -) 1 packet PO BID [facility] Last Admin: 06/12/17 09:35 Dose: 1 packet - Objective Vital Signs: Vital Signs Temperature 98.3 F 06/12/17 05:48 Pulse Rate 63 06/12/17 05:48 Respiratory Rate 18 06/12/17 05:48 Blood Pressure 169/75 06/12/17 05:48 O2 Sat by Pulse Oximetry (%) 98 06/09/17 21:00 Constitutional: Yes: No Distress, Calm Eyes: Yes: Conjunctiva Clear Neck: Yes: Supple Cardiovascular: Yes: Regular Rate and Rhythm Gastrointestinal: Yes: Normal Bowel Sounds. No: Tenderness, Tenderness, Epigastrium, Tenderness, Rebound, Vomiting Neurological: Yes: Alert Labs: CBC, BMP 06/11/17 06:40 06/11/17 06:40 INR, PTT INR 1.08 (0.82-1.09) 06/05/17 19:40 Vital Signs Temp 98.3 F 06/12/17 05:48 Pulse 63 06/12/17 05:48 Resp 18 06/12/17 05:48 BP 169/75 06/12/17 05:48 Pulse Ox 98 06/09/17 21:00 Intake & Output 06/11/17 06/11/17 06/12/17 11:59 23:59 11:59 Intake Total 950 1263 996 Output Total 1400 1400 1700 Balance -450 -137 -704 Intake: IV 900 913 896 1/2 Normal Saline 1,000 900 913 896 ml @ 83 mls/hr IV ASDIR [facility] Rx#:[id number] IVPB 50 100 100 Oral 250 Output: Urine 1400 1400 1700 [place] [id number] Void 600 Other: Voiding Method Indwelling Catheter Indwelling Catheter Bowel Movement No Yes # Bowel Movements 3 Problem List - Problems (1) Constipation, slow transit Assessment/Plan: Has daily BMs. Non-distended abdomen, no findings on abdominal exam. continue current bowel regiment Code(s): K59.01 - SLOW TRANSIT CONSTIPATION (2) Electrolyte abnormality Code(s): E87.8 - OTH DISORDERS OF ELECTROLYTE AND FLUID BALANCE, NEC
[2017-06-12] MEDS: NYSTATIN 100,000 UNIT/GM TOPICAL CREAM 15 GM TUBE TP SCH ×2 (10:00→21:08)
[2017-06-12] MEDS: SODIUM CHLORIDE 0.45% 1,000 ML IV SCH (11:51)
--- NOTE | 2017-06-12 12:39 | PN ---
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, Physician History of Present Illness: no new events no issues - Current Medication List Current Medications: Active Medications Acetaminophen (Tylenol -) 650 mg PO Q6H PRN PRN Reason: FEVER OR PAIN Last Admin: 06/10/17 15:30 Dose: 650 mg Amino Acids (Prosource No Carb Liquid Pkt) 30 ml PO BID@0800,1730 [facility] Last Admin: 06/12/17 09:34 Dose: 30 ml Amlodipine Besylate (Norvasc -) 10 mg PO DAILY [facility] Last Admin: 06/12/17 09:34 Dose: 10 mg Aspirin (Asa -) 81 mg PO DAILY [facility] Last Admin: 06/12/17 09:35 Dose: 81 mg Atorvastatin Calcium (Lipitor -) 20 mg PO HS [facility] Last Admin: 06/11/17 21:15 Dose: 20 mg Calcium Carbonate (Calcium Carbonate -) 1,300 mg PO BID [facility] Last Admin: 06/12/17 09:34 Dose: 1,300 mg Clindamycin HCl (Cleocin -) 300 mg PO Q6HPO [facility] Clopidogrel Bisulfate (Plavix -) 75 mg PO DAILY [facility] Last Admin: 06/12/17 09:35 Dose: 75 mg Docusate Sodium (Colace -) 100 mg PO TID [facility] Last Admin: 06/12/17 06:23 Dose: 100 mg Duloxetine HCl (Cymbalta -) 20 mg PO DAILY [facility] Last Admin: 06/12/17 09:34 Dose: 20 mg Ferrous Sulfate (Feosol -) 325 mg PO DAILY [facility] Last Admin: 06/12/17 09:35 Dose: 325 mg Heparin Sodium (Porcine) (Heparin -) 5,000 unit SQ BID [facility] Last Admin: 06/12/17 09:35 Dose: 5,000 unit Sodium Chloride (1/2 Normal Saline) 1,000 mls @ 83 mls/hr IV ASDIR [facility] Last Admin: 06/12/17 11:51 Dose: Not Given Piperacillin/Tazobactam/Dextrose (Zosyn 2.25gm Ivpb (Premix)) 50 mls @ 100 mls/ hr IVPB Q6H-IV [facility] PRN Reason: Protocol Last Admin: 06/12/17 09:17 Dose: 100 mls/hr Insulin Aspart (Novolog Vial Sliding Scale -) 1 vial SQ ACHS [facility] PRN Reason: Protocol Last Admin: 06/12/17 12:01 Dose: 2 unit Isosorbide Mononitrate (Imdur -) 90 mg PO DAILY [facility] Last Admin: 06/12/17 09:35 Dose: 90 mg Lactobacillus Acidophilus (Bacid -) 1 tab PO DAILY [facility] Last Admin: 06/12/17 09:35 Dose: 1 tab Metoprolol Succinate (Toprol Xl -) 75 mg PO BID [facility] Last Admin: 06/12/17 09:35 Dose: 75 mg Multivitamins/Minerals/Vitamin C (Tab-A-Vit -) 1 tab PO DAILY [facility] Last Admin: 06/12/17 09:35 Dose: 1 tab Nystatin (Mycostatin Cream -) 1 applic TP BID [facility] Last Admin: 06/12/17 10:00 Dose: 1 applic Polyethylene Glycol (Miralax (For Daily Use) -) 17 gm PO TID [facility] Last Admin: 06/12/17 06:23 Dose: 17 gm Potassium Phos/Sodium Phos (Phos-Nak Packet -) 1 packet PO BID [facility] Last Admin: 06/12/17 09:35 Dose: 1 packet - Objective Vital Signs: Vital Signs Temperature 98.0 F 06/12/17 10:00 Pulse Rate 69 06/12/17 10:00 Respiratory Rate 18 06/12/17 10:00 Blood Pressure 157/77 06/12/17 10:00 O2 Sat by Pulse Oximetry (%) 98 06/09/17 21:00 Constitutional: Yes: No Distress, Calm Respiratory: Yes: Regular, CTA Bilaterally Gastrointestinal: Yes: Normal Bowel Sounds, Soft Musculoskeletal: Yes: Other Extremities: Yes: Other Neurological: Yes: Alert, Other Psychiatric: Yes: Alert Labs: CBC, BMP 06/11/17 06:40 06/11/17 06:40 INR, PTT INR 1.08 (0.82-1.09) 06/05/17 19:40 Assessment/Plan unspecified type Osteomyelitis location: foot Laterality: left Qualified Code( s): M86.9 - Osteomyelitis, unspecified; M86.9 - Osteomyelitis, unspecified; M86.9 - Osteomyelitis, unspecified onchomycosis uti wound infection wound cx staph lugdenesis plan can switch to oral levaquin tomorrow 250 mg for another 5 days clinda to continue for 12 more days
--- NOTE | 2017-06-12 13:34 | PN ---
Physical Exam: SUBJECTIVE: Patient seen and examined. She feels well, she has no active complaints. Denies fever, abdominal pain, chest pain. OBJECTIVE: Vital Signs Period Temp Pulse Resp BP Sys/Iniguez Pulse Ox Last 24 Hr 98.0 F-99.9 F 61-73 18-20 106-169/51-77 PE Neuro: alert, awake, cn 2-12intact Pulm: CTA bilaterally CV: s1 s2 rrr no mrg Abd: s nt nd + bs : valencia Ext: warm le extremities, L foot dressing cdi Laboratory Results - last 24 hr 06/11/17 06/11/17 06/12/17 16:44 21:19 06:20 POC Glucometer 191 203 119 Active Medications Generic Name Dose Route Start Last Admin Trade Name Freq PRN Reason Stop Dose Admin Acetaminophen 650 mg 06/10/17 14:51 06/10/17 15:30 Tylenol - PO 650 mg Q6H PRN Administration FEVER OR PAIN Amino Acids 30 ml 06/10/17 17:30 06/12/17 09:34 Prosource No Carb Liquid Pkt PO 30 ml BID@0800,1730 [facility] Administration Amlodipine Besylate 10 mg 06/07/17 08:08 06/12/17 09:34 Norvasc - PO 10 mg DAILY [facility] Administration Aspirin 81 mg 06/06/17 10:00 06/12/17 09:35 Asa - PO 81 mg DAILY [facility] Administration Atorvastatin Calcium 20 mg 06/05/17 22:00 06/11/17 21:15 Lipitor - PO 20 mg HS [facility] Administration Calcium Carbonate 1,300 mg 06/06/17 11:00 06/12/17 09:34 Calcium Carbonate - PO 1,300 mg BID [facility] Administration Clindamycin HCl 300 mg 06/12/17 18:00 Cleocin - PO Q6HPO [facility] Clopidogrel Bisulfate 75 mg 06/06/17 10:00 06/12/17 09:35 Plavix - PO 75 mg DAILY [facility] Administration Docusate Sodium 100 mg 06/05/17 22:00 06/12/17 06:23 Colace - PO 100 mg TID [facility] Administration Duloxetine HCl 20 mg 06/06/17 10:00 06/12/17 09:34 Cymbalta - PO 20 mg DAILY [facility] Administration Ferrous Sulfate 325 mg 06/06/17 10:00 06/12/17 09:35 Feosol - PO 325 mg DAILY [facility] Administration Heparin Sodium (Porcine) 5,000 unit 06/05/17 22:00 06/12/17 09:35 Heparin - SQ 5,000 unit BID [facility] Administration Sodium Chloride 1,000 mls @ 83 mls/hr 06/06/17 10:45 06/12/17 11:51 1/2 Normal Saline IV Not Given ASDIR [facility] Piperacillin/Tazobactam/Dextrose 50 mls @ 100 mls/hr 06/09/17 21:25 06/12/17 09 :17 Zosyn 2.25gm Ivpb (Premix) IVPB 100 mls/hr Q6H-IV [facility] Administration Protocol Insulin Aspart 1 vial 06/05/17 22:00 06/12/17 12:01 Novolog Vial Sliding Scale - SQ 2 unit ACHS [facility] Administration Protocol Isosorbide Mononitrate 90 mg 06/06/17 10:00 06/12/17 09:35 Imdur - PO 90 mg DAILY [facility] Administration Lactobacillus Acidophilus 1 tab 06/06/17 10:00 06/12/17 09:35 Bacid - PO 1 tab DAILY [facility] Administration Metoprolol Succinate 75 mg 06/07/17 10:00 06/12/17 09:35 Toprol Xl - PO 75 mg BID [facility] Administration Multivitamins/Minerals/Vitamin C 1 tab 06/11/17 10:00 06/12/17 09:35 Tab-A-Vit - PO 1 tab DAILY [facility] Administration Nystatin 1 applic 06/09/17 13:30 06/12/17 10:00 Mycostatin Cream - TP 1 applic BID [facility] Administration Polyethylene Glycol 17 gm 06/07/17 14:00 06/12/17 06:23 Miralax (For Daily Use) - PO 17 gm TID [facility] Administration Potassium Phos/Sodium Phos 1 packet 06/06/17 10:00 06/12/17 09:35 Phos-Nak Packet - PO 1 packet BID [facility] Administration Microbiology 06/07/17 07:35 Blood Culture - Final Blood - Peripheral Venous NO GROWTH AFTER 5 DAYS INCUBATION 06/07/17 07:35 Blood Culture - Final Blood - Peripheral Venous NO GROWTH AFTER 5 DAYS INCUBATION 06/10/17 15:20 Blood Culture - Preliminary Blood - Peripheral Venous NO GROWTH OBTAINED AFTER 24 HOURS, INCUBATION TO CONTINUE FOR 4 DAYS. 06/10/17 15:20 Blood Culture - Preliminary Blood - Peripheral Venous NO GROWTH OBTAINED AFTER 24 HOURS, INCUBATION TO CONTINUE FOR 4 DAYS. Imaging: - MRI left foot with soft tissue edema of the foot extending into the toes. Bone marrow edema of the distal phalanx of the first toe which is nonspecific. Question mild bone marrow edema of the distal tuft of the distal phalanges of the third and forth toes Assessment: 86 year old female with PMHx of NIDDM, recurrent ESBL utis, HTN, hyperlipidemia, TIA, dementia, CAD s/p CABG, who presented to the ED with worsening left great toe erythema and drainage from under the toe nail. Plan: 1. Left great toe cellulitis and paronychia - S/p partial nail avulsion on 06/08 - Per podiatry, no osteomyelitis given the clinical picture - [place] soaking - Continue Zosyn - Start PO levaquin tomorrow 250mg x5 days - Continue clindamycin x12 more days 2. Psuedomonas UTI - Continue Zosyn, oral levaquin tomorrow 3. Urinary retention - Failed voiding trail, valencia reinserted - Urology consult requested 4. Chronic constipation - Colace - Miralax TID 5. DM II - Morning glucose stabe - BGM, ISS ACHS 6. HTN - Continue Toprol XL - Continue Norvasc - Continue Imdur 7. CAD s/p CABG - Continue ASA 8. Hyperlipidemia - Continue Lipitor 9. Hypocalcemia - Resolved 10. Protein malnutrition - Evidence by muscle loss (temples, clavices, and prominent sternoclavicular joint), low albumin, low BMI 11. Prophylaxis - Heparin 5,000u sq bid - PT evaluation: poor sitting balance 12. Dispo - Possible DC home tomorrow Visit type - Emergency Visit Emergency Visit: Yes ED Registration Date: 06/05/17 Care time: The patient presented to the Emergency Department on the above date and was hospitalized for further evaluation of their emergent condition. - New Patient This patient is new to me today: Yes Date on this admission: 06/12/17 - Critical Care Critical Care patient: No
--- NOTE | 2017-06-12 17:11 | CON.GU ---
Consult - History of Present Illness History of Present Illness: 87 yo female admitted with osteomyelitis. also with h/o recurrent uti. Failed recent voiding trial. 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, needs help to eat History of Recent Travel: No Home Medications - Allergies Allergies/Adverse Reactions: Allergies Allergy/AdvReac Type Severity Reaction Status Date / Time quetiapine fumarate Allergy Severe Difficulty Verified 06/05/17 15:52 [From Seroquel] Breathing ranolazine [From Ranexa] Allergy Verified 06/05/17 15:52 - Home Medications Home Medications: Ambulatory Orders Clopidogrel Bisulfate [Plavix -] 75 mg PO DAILY 12/23/15 Duloxetine HCl 20 mg PO DAILY 12/23/15 Ferrous Sulfate 325 mg PO DAILY 12/23/15 Isosorbide Mononitrate [Imdur -] 90 mg PO DAILY 12/23/15 Metformin HCl 850 mg PO BID 12/23/15 Polyethylene Glycol 3350 [Miralax 119 gm Btl -] 17 gm PO TID 12/23/15 Docusate Sodium [Colace -] 100 mg PO BID #40 capsule 04/14/16 Metoprolol Succinate [Toprol XL -] 50 mg PO DAILY #21 tab.sr.24h 04/14/16 Atorvastatin Ca [Lipitor] 20 mg PO HS #30 tablet 08/17/16 Metoprolol Succinate [Toprol XL -] 50 mg PO BID #60 tab.sr.24h 10/16/16 Physical Exam- Vital Signs: Vital Signs Temperature 97.7 F 06/12/17 15:20 Pulse Rate 75 10/16/17 15:20 Respiratory Rate 18 06/12/17 15:20 Blood Pressure 116/51 06/12/17 15:20 O2 Sat by Pulse Oximetry (%) 98 06/09/17 21:00 Renal/: Yes: Valencia Present Labs: CBC, BMP 06/11/17 06:40 06/11/17 06:40 Assessment/Plan Urinary retention will start flomax/urecholine and repeat trial of void
[2017-06-12] MEDS: CLINDAMYCIN HCL 150 MG CAPSULE (FP) PO SCH (17:55)
[2017-06-12] MEDS ORDERED: TAMSULOSIN HCL 0.4 MG CAP.ER.24H (FP) PO SCH (19:00)
[2017-06-12] MEDS: ATORVASTATIN CA 20 MG TABLET (FP) PO SCH (20:59)
[2017-06-12] MEDS: BETHANECHOL CHLORIDE 25 MG TABLET PO SCH (20:59)
[2017-06-12] MEDS ORDERED: INSULIN (NOVOLOG) ASPART 100 UNITS/ML 10ML VIAL ONE (21:06)
[2017-06-13] MEDS: SODIUM CHLORIDE 0.45% 1,000 ML IV SCH (00:20)
[2017-06-13] MEDS: CLINDAMYCIN HCL 150 MG CAPSULE (FP) PO SCH ×3 (00:24→12:46)
[2017-06-13] MEDS: PIPERACILLIN/TAZOB 2.25 GM 50 ML IVPB SCH (03:07)
[2017-06-13] MEDS: BETHANECHOL CHLORIDE 25 MG TABLET PO SCH (06:04)
[2017-06-13] MEDS: POLYETHYLENE GLYCOL 3350 119 GM BTL PO SCH (06:05)
[2017-06-13] MEDS: DOCUSATE SODIUM 100 MG CAPSULE (FP) PO SCH (06:07)
[2017-06-13] MEDS: INSULIN SLIDING SCALE (NOVOLOG) 1 VIAL SQ SCH ×2 (06:11→12:19)
[2017-06-13 08:27] LABS: ANION GAP 6 (8-16); CALCIUM 8.3 mg/dL (8.5-10.1); CO2 26 mmol/L (21-32); CREATININE 0.9 mg/dL (0.55-1.02); GLUCOSE,RANDOM 154 mg/dL (74-106); MAGNESIUM 1.9 mg/dL (1.8-2.4); PHOSPHOROUS 3.4 mg/dL (2.5-4.9)
[2017-06-13] MEDS ORDERED: LEVOFLOXACIN 250 MG TABLET (FP) PO ONE (09:30)
--- NOTE | 2017-06-13 09:49 | PN ---
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, Physician History of Present Illness: no new events no issues patient stable - Current Medication List Current Medications: Active Medications Acetaminophen (Tylenol -) 650 mg PO Q6H PRN PRN Reason: FEVER OR PAIN Last Admin: 06/10/17 15:30 Dose: 650 mg Amino Acids (Prosource No Carb Liquid Pkt) 30 ml PO BID@0800,1730 [facility] Last Admin: 06/12/17 17:55 Dose: 30 ml Amlodipine Besylate (Norvasc -) 10 mg PO DAILY [facility] Last Admin: 06/12/17 09:34 Dose: 10 mg Aspirin (Asa -) 81 mg PO DAILY [facility] Last Admin: 06/12/17 09:35 Dose: 81 mg Atorvastatin Calcium (Lipitor -) 20 mg PO HS [facility] Last Admin: 06/12/17 20:59 Dose: 20 mg Bethanechol Chloride (Urecholine -) 25 mg PO TID [facility] Last Admin: 06/13/17 06:04 Dose: 25 mg Calcium Carbonate (Calcium Carbonate -) 1,300 mg PO BID [facility] Last Admin: 06/12/17 20:59 Dose: 1,300 mg Clindamycin HCl (Cleocin -) 300 mg PO Q6HPO [facility] Last Admin: 06/13/17 06:05 Dose: 300 mg Clopidogrel Bisulfate (Plavix -) 75 mg PO DAILY [facility] Last Admin: 06/12/17 09:35 Dose: 75 mg Docusate Sodium (Colace -) 100 mg PO TID [facility] Last Admin: 06/13/17 06:07 Dose: 100 mg Duloxetine HCl (Cymbalta -) 20 mg PO DAILY [facility] Last Admin: 06/12/17 09:34 Dose: 20 mg Ferrous Sulfate (Feosol -) 325 mg PO DAILY [facility] Last Admin: 06/12/17 09:35 Dose: 325 mg Sodium Chloride (1/2 Normal Saline) 1,000 mls @ 83 mls/hr IV ASDIR [facility] Last Admin: 06/13/17 00:20 Dose: 83 mls/hr Insulin Aspart (Novolog Vial Sliding Scale -) 1 vial SQ ACHS [facility] PRN Reason: Protocol Last Admin: 06/13/17 06:11 Dose: Not Given Isosorbide Mononitrate (Imdur -) 90 mg PO DAILY [facility] Last Admin: 06/12/17 09:35 Dose: 90 mg Lactobacillus Acidophilus (Bacid -) 1 tab PO DAILY [facility] Last Admin: 06/12/17 09:35 Dose: 1 tab Metoprolol Succinate (Toprol Xl -) 75 mg PO BID [facility] Last Admin: 06/12/17 21:00 Dose: 75 mg Multivitamins/Minerals/Vitamin C (Tab-A-Vit -) 1 tab PO DAILY [facility] Last Admin: 06/12/17 09:35 Dose: 1 tab Nystatin (Mycostatin Cream -) 1 applic TP BID [facility] Last Admin: 06/12/17 21:08 Dose: 1 applic Polyethylene Glycol (Miralax (For Daily Use) -) 17 gm PO TID [facility] Last Admin: 06/13/17 06:05 Dose: 17 gm - Objective Vital Signs: Vital Signs Temperature 98.4 F 06/13/17 06:00 Pulse Rate 67 06/13/17 06:00 Respiratory Rate 20 06/13/17 06:00 Blood Pressure 151/68 06/13/17 06:00 O2 Sat by Pulse Oximetry (%) 98 06/09/17 21:00 Constitutional: Yes: No Distress, Calm Cardiovascular: Yes: S1, S2 Gastrointestinal: Yes: Normal Bowel Sounds, Soft Integumentary: Yes: Other Neurological: Yes: Alert, Other Labs: CBC, BMP 06/11/17 06:40 06/13/17 07:00 INR, PTT INR 1.08 (0.82-1.09) 06/05/17 19:40 Assessment/Plan unspecified type Osteomyelitis location: foot Laterality: left Qualified Code( s): M86.9 - Osteomyelitis, unspecified; M86.9 - Osteomyelitis, unspecified; M86.9 - Osteomyelitis, unspecified onchomycosis uti wound infection wound cx staph lugdenesis plan levaquin 250 mg for another 5 days clinda to continue for 12 more days
--- NOTE | 2017-06-13 09:58 | DS ---
Physical Exam: SUBJECTIVE: Patient seen and examined. she has no acute complaints. Mosqueda removed with + void and + BM OBJECTIVE: Vital Signs Period Temp Pulse Resp BP Sys/Iniguez Pulse Ox Last 24 Hr 97.7 F-98.4 F 67-84 18-20 106-157/51-77 PE Neuro: alert, awake, cn 2-12intact Pulm: CTA bilaterally CV: s1 s2 rrr no mrg Abd: s nt nd + bs Ext: warm le extremities, thickened toe nails, left foot with no drainage Laboratory Results - last 24 hr 06/13/17 06/13/17 05:44 07:00 Sodium 138 Potassium 4.2 Chloride 106 Carbon Dioxide 26 Anion Gap 6 L BUN 25 H Creatinine 0.9 POC Glucometer 126 Random Glucose 154 H D Calcium 8.3 L Phosphorus 3.4 Magnesium 1.9 HOSPITAL COURSE: Date of Admission:06/05/17 Date of Discharge: 06/13/17 Minutes to complete discharge: 37 Discharge Summary Reason For Visit: URINARY TRACT INFECTION; OSTEOMYELITIS Current Active Problems Constipation, slow transit (Acute) Electrolyte abnormality (Acute) Hypertension (Acute) Hypocalcemia (Acute) Hypokalemia (Acute) Osteomyelitis (Acute) Sepsis affecting skin (Acute) Soft tissue infection of foot (Acute) TIA (transient ischemic attack) (Acute) UTI (lower urinary tract infection) (Acute) Hospital Course: Initial Hospital Course: Briefly, this 86 year old female pmhx HTN, HLD, DM, CAD (s/p CABG), CVA, multiple UTI and dementia presented with worsening left great toe redness and pus under the toe nail. Family and aide report that they noticed the left toe infection. As per daughter and [employer], patient was having a cement contractor come to the house, however, the cement contractor recommended that the patient should be taken to the ED. Imaging: - MRI left foot with soft tissue edema of the foot extending into the toes. Bone marrow edema of the distal phalanx of the first toe which is nonspecific. Question mild bone marrow edema of the distal tuft of the distal phalanges of the third and forth toes Subsequent Hospital Course/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/Discharge Summary by a/p: Assessment: 86 year old female with PMHx of NIDDM, recurrent ESBL UTI's, HTN, hyperlipidemia, TIA, dementia, CAD s/p CABG, who presented to the ED with worsening left great toe erythema and drainage from under the toe nail. Plan: 1. Left great toe cellulitis and paronychia - S/p partial nail avulsion on 06/08 - Per podiatry, no osteomyelitis given the clinical picture - Epsom soaking daily - Completed course of Zosyn - Home with levaquin 250mg x5 days and clindamycin 300mg TID x12 days 2. Psuedomonas UTI - Abx above 3. Urinary retention - Started flomax 0.4mg daily and urecholine 25mg TID - Instruction to follow up with urology (referral enclosed) in 2 weeks 4. Chronic constipation - Colace - Miralax TID 5. DM II - Sugars controlled here - Resume home metformin 6. HTN - Increased Toprol XL 75mg BID - Started Norvasc 10mg daily - Continue Imdur 90mg daily 7. CAD s/p CABG - Continue ASA 8. Hyperlipidemia - Continue Lipitor 9. Hypocalcemia - Resolved - Home w/ PO supplements 10. Severe protein malnutrition - Evidence by muscle loss (temples, clavicles, and prominent sternoclavicular joint), low albumin, low BMI Dispo: - Home with home care above medication and pcp and urology follow up in 2 weeks Condition: Stable - Instructions Diet, Activity, Other Instructions: Please return to the ED for any new, persistent, or worsening symptoms. Follow up with your Primary Care doctor in 1 week Take antibiotics clindamycin and levaquin as directed and until completed Continue new blood pressure medication (amlodipine 10mg) and increased BP metoprolol XL 75mg BID Take new medication flomax and urecholine 25mg q8hr and follow up with urologist in 2 weeks (referral enclosed, Dr. Robles) Daily Epsom soaking and wound care Referrals: Nisa Lyons MD [Primary Care Provider] - London Robles MD [Staff Physician] - 2 Weeks Disposition: VNS/HOME HEALTH CARE - Home Medications Comprehensive Discharge Medication List: Ambulatory Orders Clopidogrel Bisulfate [Plavix -] 75 mg PO DAILY 12/23/15 Duloxetine HCl 20 mg PO DAILY 12/23/15 Ferrous Sulfate 325 mg PO DAILY 12/23/15 Isosorbide Mononitrate [Imdur -] 90 mg PO DAILY 12/23/15 Metformin HCl 850 mg PO BID 12/23/15 Polyethylene Glycol 3350 [Miralax 119 gm Btl -] 17 gm PO TID 12/23/15 Docusate Sodium [Colace -] 100 mg PO BID #40 capsule 04/14/16 Atorvastatin Ca [Lipitor] 20 mg PO HS #30 tablet 08/17/16 Amlodipine Besylate [Norvasc -] 10 mg PO DAILY #30 tablet 06/13/17 Aspirin [ASA -] 81 mg PO DAILY #0 tab.chew 06/13/17 Bethanechol Chloride [Urecholine] 25 mg PO TID #90 tablet 06/13/17 Calcium Carbonate - 1,300 mg PO BID #30 tablet 06/13/17 Clindamycin [Cleocin -] 300 mg PO TID #32 capsule 06/13/17 Lactobacillus Acidophilus [Bacid -] 1 tab PO DAILY tab 06/13/17 Levofloxacin [Levaquin -] 250 mg PO DAILY #4 tablet 06/13/17 Metoprolol Succinate [Toprol XL -] 75 mg PO BID #180 tab.sr.24h 06/13/17 Tamsulosin HCl [Flomax] 0.4 mg PO DAILY #30 capsule 06/13/17 This patient is new to me today: No Emergency Visit: Yes ED Registration Date: 06/05/17 Care time: The patient presented to the Emergency Department on the above date and was hospitalized for further evaluation of their emergent condition. Critical Care patient: No - Discharge Referral Referred to [facility] Med [facility].: No
[2017-06-13 10:08] VITALS: BP 153/67; PULSE 65; TEMP 98.6
[2017-06-13] MEDS ORDERED: PT OWN MED DRAWER 7, Y5N ONE (10:15)
[2017-06-13] MEDS: AMINO ACIDS/PROTEIN HYDROLYS 30 ML LIQUID.PKT PO SCH (10:20)
[2017-06-13] MEDS: FERROUS SO4 325 MG TABLET (FP) PO SCH (10:20)
[2017-06-13] MEDS: CALCIUM CARBONATE 650 MG TABLET PO SCH (10:20)
[2017-06-13] MEDS: ASPIRIN 81 MG CHEWABLE TABLETS PO SCH (10:20)
[2017-06-13] MEDS: CLOPIDOGREL BISULFATE 75 MG TABLET (FP) PO SCH (10:20)
[2017-06-13] MEDS: MULTIVITAMINS (DAILY MVI) TABLET (FP) PO SCH (10:20)
[2017-06-13] MEDS: LACTOBACILLUS ACIDOPHILUS 1 EACH TAB (FP) PO SCH (10:20)
[2017-06-13] MEDS: DULoxetine HCL 20 MG CAPSULE.DR (FP) PO SCH (10:20)
[2017-06-13] MEDS: ISOSORBIDE MONONITRATE 30 MG TAB.SR.24H (FP) PO SCH (10:21)
[2017-06-13] MEDS: amLODIPine BESYLATE 5 MG TABLET (FP) PO SCH (10:21)
[2017-06-13] MEDS: METOPROLOL SUCCINATE 25 MG TAB.SR.24H (FP) PO SCH (10:21)
[2017-06-13] MEDS: NYSTATIN 100,000 UNIT/GM TOPICAL CREAM 15 GM TUBE TP SCH (10:22)
== END 2017-06-13 14:13 | disposition home health service (06) | DRG 602 ==
LOC: JER 15:26 → JERBED 18:18 → J6S 20:30
PROVIDERS: ADMIT Internal Medicine; ATTEND Nurse Practitioner Acute Care
DX: L03.032 Cellulitis of left toe (principal); E43 Unspecified severe protein-calorie malnutrition; N39.0 Urinary tract infection, site not specified; Z68.1 Body mass index [BMI] 19.9 or less, adult; E87.2 Acidosis; R64 Cachexia; E78.5 Hyperlipidemia, unspecified; K59.00 Constipation, unspecified; I25.10 Atherosclerotic heart disease of native coronary artery without angina pectoris; Z95.1 Presence of aortocoronary bypass graft; B96.5 Pseudomonas (aeruginosa) (mallei) (pseudomallei) as the cause of diseases classified elsewhere; R33.9 Retention of urine, unspecified; E83.51 Hypocalcemia; E11.65 Type 2 diabetes mellitus with hyperglycemia; E83.42 Hypomagnesemia; E87.6 Hypokalemia; I10 Essential (primary) hypertension; E83.39 Other disorders of phosphorus metabolism; F03.90 Unspecified dementia, unspecified severity, without behavioral disturbance, psychotic disturbance, mood disturbance, and anxiety
CPT/HCPCS: 36415; 71010-TC; 73630-TC-LT; 73718-LT; 80048; 80053; 81003; 81015; 82550; 82803; 83036; 83605; 83735; 84100; 84484; 85025; 85027; 85610; 85651; 85730; 86140; 86850; 86900; 86901; 87040; 87070; 87086; 87186; 87205; 93005; 93010; 97161-GP; 99282-25; J1644

== ENCOUNTER 2017-06-17 21:37 | Inpatient (IN) | payer OTHER ==
[2017-06-17 22:10] VITALS: BMI 18.3
[2017-06-17] MEDS ORDERED: ACETAMINOPHEN 1000 MG/100 ML VIAL (NON FORMULARY) IVPB ONE (22:24)
--- NOTE | 2017-06-17 22:24 | PDOC ---
History of Present Illness - General History Source: Patient, Family, Other Exam Limitations: Dementia - History of Present Illness Initial Comments: 06/17/17 22:56 The patient is a 87 year old female, accompanied by home health aide and daughter, with a significant past medical history of hypertension, hyperlipidemia, DM, coronary artery disease s/p CABG, CVA, multiple UTI and dementia who presents to the emergency department with fever and chills beginning this morning. The patients home health aide is present and communicating for the patient. She reports the patient had a high fever of 102 F this morning accompanied by chills and a dry non productive cough. She states she noticed the patient has been less talkative than her baseline. She reports the patient took a Tylenol approx 2 hours ago without relief. She reports the patient was seen approx. 11 days ago for a left toe infection and upon visit was also diagnosed with a UTI and is currently on the last course of antibiotics. She denies recent nausea, vomit, diarrhea or constipation. She denies recent dysuria, frequency, urgency or hematuria. She denies recent chest pain or shortness of breath. Allergies: quetiapine, fumarate, ranolazine Primary Care Physician: Dr. Lyons <Koffi Rivera - Last Filed: 06/17/17 23:37> <Zaina Eid - Last Filed: 06/18/17 01:51> - General Chief Complaint: SIRS, Suspected/Possible Stated Complaint: FEVER Time Seen by Provider: 06/17/17 21:42 Past History <Koffi Rivera - Last Filed: 06/17/17 23:37> - Past Medical History Anemia: No Asthma: No Cancer: No Cardiac Disorders: Yes (angina) CVA: Yes COPD: No CHF: No Dementia: Yes Diabetes: Yes GI Disorders: Yes (Severe constipation) Disorders: Yes (Occassional UTI (12/2012)) HTN: Yes Hypercholesterolemia: Yes Liver Disease: No Seizures: No Thyroid Disease: No - Surgical History Abdominal Surgery: Yes Appendectomy: Yes Cardiac Surgery: Yes (QUAD. BYPASS, CARDIAC STENT) Cholecystectomy: No Lung Surgery: No Neurologic Surgery: No Orthopedic Surgery: No - Immunization History Immunization Up to Date: Yes - Suicide/Smoking/Psychosocial Hx Smoking Status: No Smoking History: Never smoked Have you smoked in the past 12 months: No Number of Cigarettes Smoked Daily: 0 Information on smoking cessation initiated: No Hx Alcohol Use: No Drug/Substance Use Hx: No Substance Use Type: None Hx Substance Use Treatment: No <Zaina Eid - Last Filed: 06/18/17 01:51> - Past Medical History Allergies/Adverse Reactions: Allergies Allergy/AdvReac Type Severity Reaction Status Date / Time quetiapine fumarate Allergy Severe Difficulty Verified 06/17/17 22:04 [From Seroquel] Breathing ranolazine [From Ranexa] Allergy Verified 06/17/17 22:04 Home Medications: Ambulatory Orders Clopidogrel Bisulfate [Plavix -] 75 mg PO DAILY 12/23/15 Duloxetine HCl 20 mg PO DAILY 12/23/15 Ferrous Sulfate 325 mg PO DAILY 12/23/15 Isosorbide Mononitrate [Imdur -] 90 mg PO DAILY 12/23/15 Metformin HCl 850 mg PO BID 12/23/15 Polyethylene Glycol 3350 [Miralax 119 gm Btl -] 17 gm PO TID 12/23/15 Docusate Sodium [Colace -] 100 mg PO BID #40 capsule 04/14/16 Atorvastatin Ca [Lipitor] 20 mg PO HS #30 tablet 08/17/16 Amlodipine Besylate [Norvasc -] 10 mg PO DAILY #30 tablet 06/13/17 Aspirin [ASA -] 81 mg PO DAILY #0 tab.chew 06/13/17 Bethanechol Chloride [Urecholine] 25 mg PO TID #90 tablet 06/13/17 Calcium Carbonate - 1,300 mg PO BID #30 tablet 06/13/17 Clindamycin [Cleocin -] 300 mg PO TID #32 capsule 06/13/17 Lactobacillus Acidophilus [Bacid -] 1 tab PO DAILY tab 06/13/17 Levofloxacin [Levaquin -] 250 mg PO DAILY #4 tablet 06/13/17 Metoprolol Succinate [Toprol XL -] 75 mg PO BID #180 tab.sr.24h 06/13/17 Tamsulosin HCl [Flomax] 0.4 mg PO DAILY #30 capsule 06/13/17 Acetaminophen [Tylenol] 650 mg PO QID PRN 06/17/17 Review of Systems - Review of Systems Comments:: 06/17/17 23:08 GENERAL/CONSTITUTIONAL: +Fever. +Chills. HEAD, EYES, EARS, NOSE AND THROAT: No change in vision. No ear pain or discharge. No sore throat. CARDIOVASCULAR: No chest pain or shortness of breath. RESPIRATORY: +Dry cough. No wheezing, or hemoptysis. GASTROINTESTINAL: No nausea, vomiting, diarrhea or constipation. GENITOURINARY: No dysuria, frequency, or change in urination. MUSCULOSKELETAL: No joint or muscle swelling or pain. No neck or back pain. SKIN: No rash NEUROLOGIC: No headache, vertigo, loss of consciousness, or change in strength/ sensation. ENDOCRINE: No increased thirst. No abnormal weight change. HEMATOLOGIC/LYMPHATIC: No anemia, easy bleeding, or history of blood clots. ALLERGIC/IMMUNOLOGIC: No hives or skin allergy. <Koffi Rivera - Last Filed: 06/17/17 23:37> *Physical Exam - Vital Signs Last Vital Signs Temp Pulse Resp BP Pulse Ox 101.6 F H 113 H 20 160/95 99 06/17/17 21:52 06/17/17 21:52 06/17/17 21:52 06/17/17 21:52 06/17/17 21:52 - Physical Exam Comments: 06/17/17 23:09 GENERAL: Awake and alert, dementia baseline, in no acute distress HEAD: No signs of trauma EYES: +Left corneal cloudiness. PERRLA, EOMI, sclera anicteric, ENT: Auricles normal inspection, hearing grossly normal, nares patent, oropharynx clear without exudates. Moist mucosa NECK: Normal ROM, supple, no lymphadenopathy, JVD, or masses LUNGS: Breath sounds equal, clear to auscultation bilaterally. HEART: +Murmur. Regular rate and rhythm, normal S1 and S2. ABDOMEN: Soft, nontender, normoactive bowel sounds. No guarding, no rebound. No masses EXTREMITIES: Normal range of motion, no edema. No clubbing or cyanosis. No cords, erythema, or tenderness NEUROLOGICAL: Cranial nerves II through XII grossly intact. SKIN: Warm, Dry, normal turgor, no rashes or lesions noted. <Koffi Rivera - Last Filed: 06/17/17 23:37> - Vital Signs Last Vital Signs Temp Pulse Resp BP Pulse Ox 101.6 F H 113 H 20 160/95 99 06/17/17 21:52 06/17/17 21:52 06/17/17 21:52 06/17/17 21:52 06/17/17 21:52 <Zaina Eid - Last Filed: 06/18/17 01:51> ED Treatment Course - LABORATORY CBC & Chemistry Diagram: 06/17/17 22:40 06/17/17 22:40 - ADDITIONAL ORDERS Additional order review: Laboratory Results 06/17/17 22:40 VBG pH 7.46 H D POC VBG pCO2 31.8 L D POC VBG pO2 55.7 H Mixed VBG HCO3 22.3 - Medications Given in the ED: ED Medications Discontinued Medications Generic Name Dose Route Start Last Admin Trade Name An PRN Reason Stop Dose Admin Ketorolac Tromethamine 30 mg 06/17/17 22:25 06/17/17 22:50 Toradol Injection - IVPUSH 06/17/17 22:26 30 mg ONCE ONE Administration <Koffi Rivera - Last Filed: 06/17/17 23:37> - LABORATORY CBC & Chemistry Diagram: 06/17/17 22:40 06/17/17 22:40 <Zaina Eid - Last Filed: 06/18/17 01:51> Medical Decision Making - Medical Decision Making 06/17/17 23:54 Pt is a demented elderly female who comes with fever and sepsis, and cough as well as cloudy infected urine collected on straight cath. Pt has been admitted in the past for sepsis. Pt is cared for at home by family and a Home health aide. Pt appears well in the ER after hydration, abx, toradol and tylenol(which she had received at home prior to arrival) Pt eats mashed food and she has a good appetite as per HHAide. Pt is unable to contribute to her ROS or her PMHx or current complaint. Pt will be admitted to the hospitalists, who have been admitting her since 2014 <Zaina Eid - Last Filed: 06/18/17 01:51> *DC/Admit/Observation/Transfer - Attestations Scribe Attestion: 06/17/17 23:17 Documentation prepared by Koffi Rivera, acting as medical economics consultant for Zaina Eid MD. <Koffi Rivera - Last Filed: 06/17/17 23:37> - Discharge Dispostion Admit: Yes <Zaina Eid - Last Filed: 06/18/17 01:51> Diagnosis at time of Disposition: Severe sepsis, UTI (urinary tract infection), Cough - Discharge Dispostion Condition at time of disposition: Guarded
[2017-06-17] MEDS ORDERED: KETOROLAC TROMETHAMINE 30 MG/1 ML VIAL IVPUSH ONE (22:25)
[2017-06-17 22:42] LABS: VENOUS BLOOD GAS HCO3 22.3 meq/L (19-25); VENOUS PH 7.46 (7.32-7.42)
[2017-06-17] MEDS ORDERED: KETOROLAC TROMETHAMINE 30 MG/1 ML VIAL ONE (22:47)
[2017-06-17 22:55] LABS: BASOPHIL 0.3 % (0-2.0); EOSINOPHIL 0.9 % (0-4.5); MCH 28.9 pg (25.7-33.7); MCHC 33.8 g/dl (32.0-36.0); MEAN CELL VOLUME 85.7 fl (80-96); MEAN PLT VOLUME 8.6 fl (7.5-11.1); NEUTROPHILS 83.6 % (42.8-82.8); PLATELET COUNT 179 K/MM3 (134-434); RDW 16.2 % (11.6-15.6); WHITE BLOOD COUNT 9.1 K/mm3 (4.0-10.0)
[2017-06-17] MEDS ORDERED: SODIUM CHLORIDE 0.9% 500 ML INFUS.BAG IV ONE (22:56)
[2017-06-17] MEDS ORDERED: PIPERACILLIN/TAZOB 3.375 GM/50 ML PRE-DOCKED IVPB ONE (23:00)
[2017-06-17] MEDS ORDERED: PIPERACILLIN/TAZOB 3.375 GM 50 ML IVPB ONE (23:02)
[2017-06-17 23:28] LABS: ALBUMIN 2.9 g/dl (3.4-5.0); ALK PHOS 53 U/L (45-117); ANION GAP 11 (8-16); BILIRUBIN,TOTAL 0.3 mg/dL (0.2-1.0); CALCIUM 8.8 mg/dL (8.5-10.1); CO2 22 mmol/L (21-32); CREATININE 0.7 mg/dL (0.55-1.02); GLUCOSE,RANDOM 213 mg/dL (74-106); SGOT/AST 22 U/L (15-37); SGPT/ALT 12 U/L (12-78); TOT PROT 6.9 g/dl (6.4-8.2)
[2017-06-17 23:44] LABS: URINE APPEARANCE TURBID; URINE BILIRUBIN NEGATIVE (NEGATIVE); URINE BLOOD 2+ (NEGATIVE); URINE COLOR YELLOW; URINE GLUCOSE (UA) 3+ (NEGATIVE); URINE KETONE NEGATIVE (NEGATIVE); URINE NITRITE NEGATIVE (NEGATIVE); URINE UROBILINOGEN NEGATIVE mg/dL (0.2-1.0)
[2017-06-17 23:50] LABS: URINE PROTEIN 2+ (NEGATIVE)
[2017-06-17 23:52] LABS: URINE MUCUS MODERATE; URINE RBC 28 /hpf (0-3); URINE WBC 4258 /hpf (3-5)
--- NOTE | 2017-06-18 01:19 | HP ---
CHIEF COMPLAINT: fever and chills PCP: Dr. Lyons HISTORY OF PRESENT ILLNESS: Patient is a 87 yo F, accompanied by home health aide and daughter, with a PMHx of HTN, HLD, DM, CAD s/p CABG, CVA, recurrent UTI 's, dementia, presented to the ED for fever and chills that started this morning. Patient was given tylenol and cold compresses which helped but fever came back. Patients Aide also reports a productive cough and sob that also started this morning. Denies blood. Patient was admitted last week for UTI and Cellulitis and was discharged on Levaquin (finished course) and Clindamycin 300mg 3x a day, which she is still taking. Patient denies headache, nausea, vomiting, LOC, decreased appetite, sore throat, runny nose, dizziness and chest pain. ER course was notable for: (1) Lactic Acid 2.6 (2) Temp: 101.6 (3) + U/A, given Zosyn Recent Travel: n/a Received Flu shot PAST MEDICAL HISTORY: HTN HLD DM CAD s/p CABG CVA UTI Dementia PAST SURGICAL HISTORY: n/a Social History: Smoking:n/a Alcohol: n/a Drugs: n/a Family History: Allergies quetiapine fumarate [From Seroquel] Allergy (Severe, Verified 06/17/17 22:04) Difficulty Breathing NMS ranolazine [From Ranexa] Allergy (Verified 06/17/17 22:04) HOME MEDICATIONS: Home Medications Medication Instructions Recorded Clopidogrel Bisulfate [Plavix -] 75 mg PO DAILY 12/23/15 Duloxetine HCl 20 mg PO DAILY 12/23/15 Ferrous Sulfate 325 mg PO DAILY 12/23/15 Isosorbide Mononitrate [Imdur -] 90 mg PO DAILY 12/23/15 Metformin HCl 850 mg PO BID 12/23/15 Polyethylene Glycol 3350 [Miralax 17 gm PO TID 12/23/15 119 gm Btl -] Docusate Sodium [Colace -] 100 mg PO BID #40 capsule 04/14/16 Atorvastatin Ca [Lipitor] 20 mg PO HS #30 tablet 08/17/16 Amlodipine Besylate [Norvasc -] 10 mg PO DAILY #30 tablet 06/13/17 Aspirin [ASA -] 81 mg PO DAILY #0 tab.chew 06/13/17 Bethanechol Chloride [Urecholine] 25 mg PO TID #90 tablet 06/13/17 Calcium Carbonate - 1,300 mg PO BID #30 tablet 06/13/17 Clindamycin [Cleocin -] 300 mg PO TID #32 capsule 06/13/17 Lactobacillus Acidophilus [Bacid -] 1 tab PO DAILY tab 06/13/17 Levofloxacin [Levaquin -] 250 mg PO DAILY #4 tablet 06/13/17 Metoprolol Succinate [Toprol XL -] 75 mg PO BID #180 tab.sr.24h 06/13/17 Tamsulosin HCl [Flomax] 0.4 mg PO DAILY #30 capsule 06/13/17 Acetaminophen [Tylenol] 650 mg PO QID PRN 06/17/17 REVIEW OF SYSTEMS per HPI PHYSICAL EXAMINATION Vital Signs - 24 hr 06/17/17 06/17/17 21:52 23:54 Temperature 101.6 F H 100.9 F H Pulse Rate 113 H Respiratory 20 Rate Blood Pressure 160/95 O2 Sat by Pulse 99 Oximetry (%) GENERAL: Awake, alert, dementia baseline, in no acute distress HEAD: Normal with no signs of trauma. EYES: anicteric, deformed pupils, minimally reactive to light NOSE, THROAT: oropharynx clear without exudates. Moist mucous membranes. LUNGS: decreased air entry, diminished breath sounds, no wheezing or crackles HEART: Regular rate and rhythm ABDOMEN: Soft, nontender, not distended, normoactive bowel sounds, no guarding, no rebound, no masses. No CVA tenderness UPPER EXTREMITIES: 2+ pulses, No cyanosis. No clubbing. No peripheral edema. LOWER EXTREMITIES: 2+ pulses, No calf tenderness. No peripheral edema. NEUROLOGICAL: limited neuro due to dementia Laboratory Results - last 24 hr 06/17/17 06/17/17 06/17/17 22:05 22:40 22:40 WBC 9.1 D RBC 3.72 Hgb 10.8 Hct 31.9 L MCV 85.7 MCH 28.9 MCHC 33.8 RDW 16.2 H Plt Count 179 MPV 8.6 Neutrophils % 83.6 H D Lymphocytes % 5.6 L D Monocytes % 9.6 Eosinophils % 0.9 Basophils % 0.3 VBG pH 7.46 H D POC VBG pCO2 31.8 L D POC VBG pO2 55.7 H Mixed VBG HCO3 22.3 Sodium Potassium Chloride Carbon Dioxide Anion Gap BUN Creatinine Creat Clearance w eGFR Random Glucose Lactic Acid 2.6 H* Calcium Total Bilirubin AST ALT Alkaline Phosphatase Total Protein Albumin Urine Color Urine Appearance Urine pH Urine Protein Urine Glucose (UA) Urine Ketones Urine Blood Urine Nitrite Urine Bilirubin Urine Urobilinogen Urine RBC Urine WBC Urine Mucus 06/17/17 06/17/17 22:40 23:31 WBC RBC Hgb Hct MCV MCH MCHC RDW Plt Count MPV Neutrophils % Lymphocytes % Monocytes % Eosinophils % Basophils % VBG pH POC VBG pCO2 POC VBG pO2 Mixed VBG HCO3 Sodium 134 L Potassium 5.0 Chloride 101 Carbon Dioxide 22 Anion Gap 11 BUN 17 D Creatinine 0.7 D Creat Clearance w eGFR > 60 Random Glucose 213 H D Lactic Acid Calcium 8.8 Total Bilirubin 0.3 D AST 22 D ALT 12 Alkaline Phosphatase 53 Total Protein 6.9 Albumin 2.9 L Urine Color Yellow Urine Appearance Turbid Urine pH 5.0 Urine Protein 2+ H Urine Glucose (UA) 3+ H Urine Ketones Negative Urine Blood 2+ H Urine Nitrite Negative Urine Bilirubin Negative Urine Urobilinogen Negative Urine RBC 28 Urine WBC 4258 Urine Mucus Moderate ASSESSMENT/PLAN: Patient is a 87 yo F with a PMHx of HTN, HLD, DM, CAD s/p CABG, CVA, recurrent UTI's, and dementia, presented to the ED for fever and chills and was found to have sepsis secondary to UTI #Sepsis secondary to UTI -Lactic acid 2.5 in ED, temp 101.6, postive U/A -hx of pseudomonas (last admission), ESBL (last year) -continue IV antibiotics Zosyn day 1 -Start IV fluids: NS @75 cc -ID consulted -Urology consulted for recurrent UTI's and previous CT showing: abnormal filling defects within the urinary bladder. -FU Renal U/S -Stool for C. Diff -Respiratory multiplex PCR, Flu swab #Cough -Respiratory multiplex PCR -Flu swab -Robitussin #DM -BGM -ISS #HTN -cont. Norvasc 10 -Metoprolol 75mg #CAD -cont ASA, Plavix #HLD -Atorvastatin 10mg #PPX -Heparin SQ FEN: -NS @ 75cc -WNL -Diabetic diet Visit type - Emergency Visit Emergency Visit: Yes ED Registration Date: 06/18/17 Care time: The patient presented to the Emergency Department on the above date and was hospitalized for further evaluation of their emergent condition. - New Patient This patient is new to me today: Yes Date on this admission: 06/18/17 - Critical Care Critical Care patient: No
--- NOTE | 2017-06-18 03:44 | PN ---
Teaching Attending Note Name of Resident: Kevin Montenegro ATTENDING PHYSICIAN STATEMENT I saw and evaluated the patient. Chart, data, imaging reviewed. I reviewed the resident's note and discussed the case with the resident. I agree with the resident's findings and plan as documented. Patient is poor historian and history was mainly obtained from EMR. 87 year old woman with hypertension, hyperlipidemia, DM, coronary artery disease s/p CABG, CVA, multiple UTI and dementia presented to the emergency department with fever and chills which began yesterday morning. Patient had a high fever of 102 F yesterday morning accompanied by chills and a dry non productive cough. Patient has been less talkative than her baseline. Patient recently discharged after she was managed for UTI and toe cellulitis, completed course of levaquin and clindamycin. OBJECTIVE: Last Vital Signs Temp Pulse Resp BP Pulse Ox 98.3 F 82 20 155/68 96 06/18/17 04:52 06/18/17 04:52 06/18/17 04:52 06/18/17 04:52 06/18/17 02:18 General- frail, elderly woman HEENT -dry oral mucosa Neck - supple, no masses CV -s1+s2+ RRR CHest- CTA b/l Abdomen- soft, nontender, no masses appreciated, BS+ , no CVA tenderness skin- no rashes appreciated Abnormal Lab Results 06/17/17 06/17/17 06/17/17 22:05 22:40 22:40 Hct 31.9 L RDW 16.2 H Neutrophils % 83.6 H D Lymphocytes % 5.6 L D VBG pH 7.46 H D POC VBG pCO2 31.8 L D POC VBG pO2 55.7 H Sodium Random Glucose Lactic Acid 2.6 H* Albumin Urine Protein Urine Glucose (UA) Urine Blood 06/17/17 06/17/17 22:40 23:31 Hct RDW Neutrophils % Lymphocytes % VBG pH POC VBG pCO2 POC VBG pO2 Sodium 134 L Random Glucose 213 H D Lactic Acid Albumin 2.9 L Urine Protein 2+ H Urine Glucose (UA) 3+ H Urine Blood 2+ H CXR - no focal infiltrates seen. ASSESSMENT AND PLAN: #Sepsis 2/2 to UTI. Hemodynamically stable with normalization of vital signs and improvement of lactate after treatment with zosyn. Patient has baseline urinary retention which may predispose to recurrent infections. Dry cough without CXR findings suggests possible viral URI. 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 R/o endogenous focus of infection. -admit to med/surg -blood culture x2 -urine culture -continue zosyn 3.375 g IV q6hrs -IV fluid hydration -renal U/S -bladder pre and post void U/S -respiratory multiplex PCR for viruses -flu swab -if diarrhea, send stool for C Dif -consider eval for recurrent UTIs and possible cystoscopy -restart home meds for chronic medical problems #DVT ppx -heparin sc #diet -Pureed
[2017-06-18] MEDS ORDERED: SODIUM CHLORIDE 1,000 ML IV SCH ×2 (04:30→11:01)
[2017-06-18] MEDS: HEPARIN NA (PORCINE) 5,000 UNITS/ML 1ML VIAL SQ SCH ×3 (06:24→22:19)
[2017-06-18] MEDS: POLYETHYLENE GLYCOL 3350 119 GM BTL PO SCH ×4 (06:25→22:30)
[2017-06-18] MEDS: BETHANECHOL CHLORIDE 25 MG TABLET PO SCH ×4 (06:26→23:00)
[2017-06-18] MEDS: guaiFENesin 200 MG/10 ML 10 ML UNIT-DOSE CUPS PO PRN ×2 (06:26→11:41)
[2017-06-18] MEDS: INSULIN SLIDING SCALE (NOVOLOG) 1 VIAL SQ SCH ×4 (06:28→22:26)
[2017-06-18] MEDS: TAMSULOSIN HCL 0.4 MG CAP.ER.24H (FP) PO SCH (07:55)
[2017-06-18 07:57] LABS: ANION GAP 8 (8-16); CALCIUM 8.5 mg/dL (8.5-10.1); CO2 24 mmol/L (21-32); CREATININE 0.5 mg/dL (0.55-1.02); GLUCOSE,RANDOM 122 mg/dL (74-106); MAGNESIUM 1.8 mg/dL (1.8-2.4); PHOSPHOROUS 3.1 mg/dL (2.5-4.9)
[2017-06-18 08:18] LABS: MCH 28.3 pg (25.7-33.7); MEAN CELL VOLUME 85.8 fl (80-96); MEAN PLT VOLUME 8.5 fl (7.5-11.1); PLATELET COUNT 188 K/MM3 (134-434); RDW 15.9 % (11.6-15.6)
[2017-06-18] MEDS ORDERED: METOPROLOL SUCCINATE 25 MG TAB.SR.24H (FP) PO SCH ×2 (10:00→12:15)
[2017-06-18] MEDS ORDERED: amLODIPine BESYLATE 10 MG TABLET (FP) PO SCH ×2 (10:00→12:15)
[2017-06-18] MEDS ORDERED: ISOSORBIDE MONONITRATE 30 MG TAB.SR.24H (FP) PO SCH (10:00)
--- NOTE | 2017-06-18 10:49 | EKG ---
Test Reason : Blood Pressure : / mmHG Vent. Rate : 082 BPM Atrial Rate : 082 BPM P-R Int : 182 ms QRS Dur : 092 ms QT Int : 382 ms P-R-T Axes : 026 -39 030 degrees QTc Int : 446 ms NORMAL SINUS RHYTHM LEFT AXIS DEVIATION INCOMPLETE RIGHT BUNDLE BRANCH BLOCK ABNORMAL ECG WHEN COMPARED WITH ECG OF 05-JUN-2017 15:34, NO SIGNIFICANT CHANGE WAS FOUND BASELINE ARTIFACT Confirmed by JOSÉ MIGUEL SHEEHAN MD ([id number]) on 06/18/2017 10:49:20 AM Also confirmed by JOSÉ MIGUEL SHEEHAN MD ([id number]), manager editorial PARRISH HERNANDEZ ([id number]) on 08/03/2017 1:01:47 PM Referred By: Confirmed By:JOSÉ MIGUEL SHEEHAN MD
[2017-06-18] MEDS: CLOPIDOGREL BISULFATE 75 MG TABLET (FP) PO SCH (11:00)
[2017-06-18] MEDS: ASPIRIN 81 MG CHEWABLE TABLETS PO SCH (11:00)
[2017-06-18] MEDS ORDERED: PIPERACILLIN/TAZOB 3.375 GM 50 ML IVPB ONE (11:00)
[2017-06-18] MEDS: DOCUSATE SODIUM 100 MG CAPSULE (FP) PO SCH ×3 (11:01→23:00)
[2017-06-18] MEDS: CALCIUM CARBONATE 650 MG TABLET PO SCH ×3 (11:02→23:00)
[2017-06-18] MEDS: LACTOBACILLUS ACIDOPHILUS 1 EACH TAB (FP) PO SCH (11:02)
[2017-06-18] MEDS: FERROUS SO4 325 MG TABLET (FP) PO SCH (11:02)
--- NOTE | 2017-06-18 11:11 | PN ---
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 (short form) - Note 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: Subjective: unable to obtain hx, says " I feel bad " Objective: Vital Signs: Last Vital Signs Temp Pulse Resp BP Pulse Ox 98.6 F 89 20 128/88 98 06/18/17 06:00 06/18/17 06:00 06/18/17 06:00 06/18/17 06:00 06/18/17 05:12 Laboratory Results - last 24 hr 06/17/17 06/17/17 06/17/17 22:05 22:40 22:40 WBC 9.1 D RBC 3.72 Hgb 10.8 Hct 31.9 L MCV 85.7 MCH 28.9 MCHC 33.8 RDW 16.2 H Plt Count 179 MPV 8.6 Neutrophils % 83.6 H D Lymphocytes % 5.6 L D Monocytes % 9.6 Eosinophils % 0.9 Basophils % 0.3 VBG pH 7.46 H D POC VBG pCO2 31.8 L D POC VBG pO2 55.7 H Mixed VBG HCO3 22.3 Sodium Potassium Chloride Carbon Dioxide Anion Gap BUN Creatinine Creat Clearance w eGFR POC Glucometer Random Glucose Lactic Acid 2.6 H* Calcium Phosphorus Magnesium Total Bilirubin AST ALT Alkaline Phosphatase Total Protein Albumin Urine Color Urine Appearance Urine pH Urine Protein Urine Glucose (UA) Urine Ketones Urine Blood Urine Nitrite Urine Bilirubin Urine Urobilinogen Urine RBC Urine WBC Urine Mucus 06/17/17 06/17/17 06/18/17 22:40 23:31 01:00 WBC RBC Hgb Hct MCV MCH MCHC RDW Plt Count MPV Neutrophils % Lymphocytes % Monocytes % Eosinophils % Basophils % VBG pH POC VBG pCO2 POC VBG pO2 Mixed VBG HCO3 Sodium 134 L Potassium 5.0 Chloride 101 Carbon Dioxide 22 Anion Gap 11 BUN 17 D Creatinine 0.7 D Creat Clearance w eGFR > 60 POC Glucometer Random Glucose 213 H D Lactic Acid 1.9 Calcium 8.8 Phosphorus Magnesium Total Bilirubin 0.3 D AST 22 D ALT 12 Alkaline Phosphatase 53 Total Protein 6.9 Albumin 2.9 L Urine Color Yellow Urine Appearance Turbid Urine pH 5.0 Urine Protein 2+ H Urine Glucose (UA) 3+ H Urine Ketones Negative Urine Blood 2+ H Urine Nitrite Negative Urine Bilirubin Negative Urine Urobilinogen Negative Urine RBC 28 Urine WBC 4258 Urine Mucus Moderate 06/18/17 06/18/17 06/18/17 06:10 06:10 06:28 WBC 9.0 RBC 3.66 Hgb 10.4 L Hct 31.4 L MCV 85.8 MCH 28.3 MCHC 33.0 RDW 15.9 H Plt Count 188 MPV 8.5 Neutrophils % Lymphocytes % Monocytes % Eosinophils % Basophils % VBG pH POC VBG pCO2 POC VBG pO2 Mixed VBG HCO3 Sodium 135 L Potassium 4.0 Chloride 103 Carbon Dioxide 24 Anion Gap 8 BUN 17 Creatinine 0.5 L D Creat Clearance w eGFR POC Glucometer 107 Random Glucose 122 H D Lactic Acid Calcium 8.5 Phosphorus 3.1 Magnesium 1.8 Total Bilirubin AST ALT Alkaline Phosphatase Total Protein Albumin Urine Color Urine Appearance Urine pH Urine Protein Urine Glucose (UA) Urine Ketones Urine Blood Urine Nitrite Urine Bilirubin Urine Urobilinogen Urine RBC Urine WBC Urine Mucus Physical Exam: NAD , awake, alert , minimal verbal response. dry cough noted CV: RRR, 3/6 SM at base , with 3/6 SM at LLSB Lungs: CTAB Abd: soft, NT, ND , NL BS Ext: L foot edema with increased warmth. No erythema, no erythema or drainage form toes. Neuro : no facial droop, resists eye opening for exam. Assessment/Plan: 87 y/o lady with h/o HTN, CAD , CVA , dementia, HLp, Dm and other medical problems including recent hospitalization for L great toe infection , who presented with decreased responsiveness and dry cough. She was found to have severe sepsis . 1- Severe sepsis: due to complicated UTI in this lady who probably has bladder masses. cough is dry and cxray with no infiltrate . I suspect the foot infection is still active as there is still edema and warmth on exam. - last urine cx in system with pseudomonas, L great toe cx with staph Lugdenesis . blood cx with staph capitis ( only one set ) - start zosyn . - ID consult for Abx mgt - possibility of bladder cancer , might need cystoscopy. - follow urine cx and blood cx - rapid flu swab Neg, folow full PCR panel - decrease IVF to 50 cc/hr 2- h/o CAD , CVA . - Cont BB , ASA , plavix, imdur and statin 3- DM : hold metformin and cont SSI 4- DVT PX . heparin sq Medications confirmed and updated in system Visit type - Emergency Visit Emergency Visit: Yes ED Registration Date: 06/18/17 Care time: The patient presented to the Emergency Department on the above date and was hospitalized for further evaluation of their emergent condition. - New Patient This patient is new to me today: Yes Date on this admission: 06/18/17 - Critical Care Critical Care patient: No
[2017-06-18] MEDS ORDERED: PT OWN MED DRAWER 7, Y5N ONE ×3 (11:22→19:45)
[2017-06-18] MEDS: DULoxetine HCL 20 MG CAPSULE.DR (FP) PO SCH (11:27)
--- NOTE | 2017-06-18 12:04 | RAPID ---
Physical Examination Vital Signs: Vital Signs Temperature 98.5 F 06/18/17 10:15 Pulse Rate 77 06/18/17 10:15 Respiratory Rate 19 06/18/17 10:15 Blood Pressure 145/102 06/18/17 10:30 O2 Sat by Pulse Oximetry (%) 98 06/18/17 05:12 Vital Signs Temperature 98.5 F 06/18/17 10:15 Pulse Rate 77 06/18/17 10:15 Respiratory Rate 19 06/18/17 10:15 Blood Pressure 145/102 06/18/17 10:30 O2 Sat by Pulse Oximetry (%) 98 06/18/17 05:12 Findings/Remarks: Was called to the bedside by rapid response. Per nurse, the patient suddenly became unresponsive. Blood pressure at this time was 54/29 with a heart rate of 89. BGM was 146. BP this morning was 145/102. Per nurse, she had recently given the patient her BP medications at approx. 11:00am. Repeat blood pressure 81/42 with HR 88 BPM. Patient was found lying in bed spontaneously breathing with a pulse. No tongue biting, urinary or bowel incontinence or seizure-like activity noted. Patient placed in [place] position. Fluids changed to bolus. Patient became responsive with spontaneous eye opening and following of commands. Patient coughing with sounds of congestion. Patient suctioned. Constitutional: Yes: Other (patient found lying in bed minimally responsive) Eyes: Yes: PERRL HENT: Yes: Atraumatic, Normocephalic Cardiovascular: Yes: Regular Rate and Rhythm, S1, S2. No: Gallop, Murmur, Rub Respiratory: Yes: Other (coarse breath sounds on the left in the upper and mid lung blue. Patient with cough and sounds of congestion.) Peripheral Pulses WNL: Yes Neurological: Yes: Lethargy (Patient has baseline dementia, making it difficult to assess orientation status), Other (patient able to follow commands slowly.) Labs: CBC, BMP 06/18/17 06:10 06/18/17 06:10 Rapid Response - Rapid Response Assessment: Patient with a PMH HTN, CAD s/p CABG, CVA, recurrent UTI's and dementia Found to have low blood pressure shortly after receiving her blood pressure medications. Patient likely had a brisk reaction to her medications, leading to a drop in blood pressure and a brief syncopal episode. Recommendations/Interventions: -patient placed in [place] -Fluids switched to bolus -patient airway suctioned -supplemental O2 -EKG STAT -Increased fluids to 100 going forward -monitor BP Q1H for 4 hr, then Q3H after that. will follow closely. Primary Physician Notified: Jelani uRvalcaba Time PMD Notified: 12:00
[2017-06-18 13:41] LABS: CPK 29 IU/L (26-192); TROPONIN I < 0.02 ng/ml (0.00-0.05)
--- NOTE | 2017-06-18 14:14 | CON.ID ---
Consult Consult Specialty:: infectious diseases Reason for Consultation:: sepsis - History of Present Illness History of Present Illness: 87 yo F, known to me from last admission, with a PMHx of HTN, HLD, DM, CAD s/p CABG, CVA, recurrent UTI's, dementia, admitted for fever and chills that . Patient was given tylenol and cold compresses which helped but fever came back. Patients Aide also reports a productive cough and sob that also started this morning. Patient was admitted last week for UTI and Cellulitis and was discharged on Levaquin (finished course) and Clindamycin 300mg 3x a day, which she is still taking. 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 History of Recent Travel: No Home Medications - Allergies Allergies/Adverse Reactions: Allergies Allergy/AdvReac Type Severity Reaction Status Date / Time quetiapine fumarate Allergy Severe Difficulty Verified 06/17/17 22:04 [From Seroquel] Breathing ranolazine [From Ranexa] Allergy Verified 06/17/17 22:04 - Home Medications Home Medications: Ambulatory Orders Clopidogrel Bisulfate [Plavix -] 75 mg PO DAILY 12/23/15 Duloxetine HCl 20 mg PO DAILY 12/23/15 Ferrous Sulfate 325 mg PO DAILY 12/23/15 Isosorbide Mononitrate [Imdur -] 90 mg PO DAILY 12/23/15 Metformin HCl 850 mg PO BID 12/23/15 Polyethylene Glycol 3350 [Miralax 119 gm Btl -] 17 gm PO TID 12/23/15 Docusate Sodium [Colace -] 100 mg PO BID #40 capsule 04/14/16 Atorvastatin Ca [Lipitor] 20 mg PO HS #30 tablet 08/17/16 Amlodipine Besylate [Norvasc -] 10 mg PO DAILY #30 tablet 06/13/17 Aspirin [ASA -] 81 mg PO DAILY #0 tab.chew 06/13/17 Bethanechol Chloride [Urecholine] 25 mg PO TID #90 tablet 06/13/17 Calcium Carbonate - 1,300 mg PO BID #30 tablet 06/13/17 Clindamycin [Cleocin -] 300 mg PO TID #32 capsule 06/13/17 Lactobacillus Acidophilus [Bacid -] 1 tab PO DAILY tab 06/13/17 Metoprolol Succinate [Toprol XL -] 75 mg PO BID #180 tab.sr.24h 06/13/17 Tamsulosin HCl [Flomax] 0.4 mg PO DAILY #30 capsule 06/13/17 Acetaminophen [Tylenol] 650 mg PO QID PRN 06/17/17 Review of Systems Unable to obtain ROS, reason: unable to obtain Physical Exam Vital Signs: Vital Signs Temperature 98.5 F 06/18/17 10:15 Pulse Rate 88 06/18/17 13:00 Respiratory Rate 20 06/18/17 13:00 Blood Pressure 91/49 06/18/17 13:00 O2 Sat by Pulse Oximetry (%) 98 06/18/17 05:12 Constitutional: Yes: No Distress, Calm Cardiovascular: Yes: Regular Rate and Rhythm Respiratory: Yes: Regular, CTA Bilaterally Gastrointestinal: Yes: Normal Bowel Sounds, Soft Musculoskeletal: Yes: WNL Extremities: Yes: WNL Neurological: Yes: Alert, Other Labs: CBC, BMP 06/18/17 06:10 06/18/17 06:10 Assessment/Plan sepsis cough dm cad plan will start patient on abx await for all cx reports rest as per primary close watch on the patient
[2017-06-18 14:49] LABS: URINE LEUK ESTERASE 3+ (NEGATIVE)
[2017-06-18] MEDS ORDERED: VANCOMYCIN 1,250 MG in DEXTROSE 5%-WATER - 250 ML IVPB SCH (16:00)
[2017-06-18] MEDS: VANCOMYCIN 1,250 MG in DEXTROSE 5%-WATER - 250 ML IVPB SCH (17:39)
[2017-06-18] MEDS ORDERED: PIPERACILLIN/TAZOB 3.375 GM 50 ML IVPB SCH (18:00)
[2017-06-18] MEDS ORDERED: ACETAMINOPHEN 325 MG TABLET (FP) PO ONE (18:17)
[2017-06-18] MEDS: SODIUM CHLORIDE 1,000 ML IV SCH (18:48)
[2017-06-18] MEDS ORDERED: FLU VACCINE QUAD 60 MCG/0.5 ML (MDV 17-18) IM ONE (20:00)
[2017-06-18] MEDS: PIPERACILLIN/TAZOB 3.375 GM 50 ML IVPB SCH (21:07)
[2017-06-18] MEDS: ATORVASTATIN CA 20 MG TABLET (FP) PO SCH ×2 (22:08→23:00)
[2017-06-18 22:44] LABS: TROPONIN I < 0.02 ng/ml (0.00-0.05)
[2017-06-18 22:45] LABS: CPK 28 IU/L (26-192)
[2017-06-18] MEDS ORDERED: SODIUM CHLORIDE 500 ML IV STA (23:31)
[2017-06-19] MEDS: PIPERACILLIN/TAZOB 3.375 GM 50 ML IVPB SCH ×2 (02:59→10:20)
[2017-06-19] MEDS: BETHANECHOL CHLORIDE 25 MG TABLET PO SCH ×3 (05:58→21:38)
[2017-06-19] MEDS: POLYETHYLENE GLYCOL 3350 119 GM BTL PO SCH ×3 (05:59→21:54)
[2017-06-19] MEDS: HEPARIN NA (PORCINE) 5,000 UNITS/ML 1ML VIAL SQ SCH ×3 (05:59→21:38)
[2017-06-19] MEDS: INSULIN SLIDING SCALE (NOVOLOG) 1 VIAL SQ SCH ×4 (06:04→21:57)
[2017-06-19 07:31] LABS: ANION GAP 12 (8-16); CALCIUM 8.2 mg/dL (8.5-10.1); CO2 22 mmol/L (21-32); CREATININE 0.7 mg/dL (0.55-1.02); GLUCOSE,RANDOM 76 mg/dL (74-106); MAGNESIUM 1.7 mg/dL (1.8-2.4); PHOSPHOROUS 3.5 mg/dL (2.5-4.9)
[2017-06-19 08:02] LABS: BASOPHIL 0.1 % (0-2.0); EOSINOPHIL 0.4 % (0-4.5); MCH 28.6 pg (25.7-33.7); MCHC 33.2 g/dl (32.0-36.0); MEAN PLT VOLUME 8.6 fl (7.5-11.1); NEUTROPHILS 89.5 % (42.8-82.8); PLATELET COUNT 176 K/MM3 (134-434); RDW 16.3 % (11.6-15.6); WHITE BLOOD COUNT 12.6 K/mm3 (4.0-10.0)
--- NOTE | 2017-06-19 10:10 | EKG ---
Test Reason : Blood Pressure : / mmHG Vent. Rate : 088 BPM Atrial Rate : 088 BPM P-R Int : 162 ms QRS Dur : 090 ms QT Int : 376 ms P-R-T Axes : 028 -43 047 degrees QTc Int : 454 ms NORMAL SINUS RHYTHM LEFT AXIS DEVIATION ABNORMAL ECG WHEN COMPARED WITH ECG OF 18-JUN-2017 02:58, INCOMPLETE RIGHT BUNDLE BRANCH BLOCK IS NO LONGER PRESENT Confirmed by MELISA MARTINEZ, JOSEMANUEL ([id number]) on 06/19/2017 10:10:07 AM Referred By: Tuan CHAPMAN Confirmed By:JOSEMANUEL VINCENT MD
[2017-06-19] MEDS ORDERED: PT OWN MED DRAWER 7, Y5N ONE ×2 (10:17→21:25)
[2017-06-19] MEDS: TAMSULOSIN HCL 0.4 MG CAP.ER.24H (FP) PO SCH (10:18)
[2017-06-19] MEDS: CALCIUM CARBONATE 650 MG TABLET PO SCH ×2 (10:18→21:38)
[2017-06-19] MEDS: CLOPIDOGREL BISULFATE 75 MG TABLET (FP) PO SCH (10:18)
[2017-06-19] MEDS: ASPIRIN 81 MG CHEWABLE TABLETS PO SCH (10:18)
[2017-06-19] MEDS: FERROUS SO4 325 MG TABLET (FP) PO SCH (10:18)
[2017-06-19] MEDS: LACTOBACILLUS ACIDOPHILUS 1 EACH TAB (FP) PO SCH (10:18)
[2017-06-19] MEDS: DULoxetine HCL 20 MG CAPSULE.DR (FP) PO SCH (10:19)
[2017-06-19] MEDS: DOCUSATE SODIUM 100 MG CAPSULE (FP) PO SCH ×2 (10:19→21:38)
[2017-06-19] MEDS ORDERED: MEROPENEM 1 GM in DEXTROSE 5%-WATER - 100 ML IVPB ONE (11:00)
[2017-06-19] MEDS ORDERED: INSULIN (NOVOLOG) ASPART 100 UNITS/ML 10ML VIAL ONE (11:03)
[2017-06-19] MEDS ORDERED: MAGNESIUM SULF 50% (8.12 MEQ/2 ML-1 GM VIAL) IVPB ONE (12:15)
--- NOTE | 2017-06-19 12:36 | CONSULT ---
Admitting History and Physical - Primary Care Physician PCP: Jelani Ruvalcaba - Admission History of Present Illness: 87 yo F with a PMHx of HTN, HLD, DM, CAD s/p CABG, CVA, recurrent UTI's, and dementia, presented to the ED for fever and chills and was found to have sepsis secondary to UTI Selected Entries 06/17/17 06/17/17 06/18/17 21:52 23:54 04:52 Breakfast Lunch Supper Temperature 101.6 F H 100.9 F H 98.3 F 06/18/17 06/18/17 06/18/17 06:00 10:15 10:56 Breakfast 100% Lunch Supper Temperature 98.6 F 98.5 F 06/18/17 06/18/17 06/18/17 14:03 16:00 18:00 Breakfast Lunch 0 Supper 0 Temperature 98.0 F 100.2 F H 06/18/17 06/18/17 06/19/17 18:30 21:50 03:07 Breakfast Lunch Supper Temperature 100.8 F H 99.1 F 99.1 F 06/19/17 06/19/17 06/19/17 06:13 10:00 10:26 Breakfast 25% Lunch Supper Temperature 98.9 F 98.9 F Laboratory Tests 06/17/17 06/18/17 06/19/17 22:40 06:10 07:50 WBC 9.1 D 9.0 12.6 H D History Source: Medical Record Limitations to Obtaining History: Clinical Condition, Dementia - 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 History of Recent Travel: No History - Admission Reason For Visit: URINARY TRACT INFECTION/SEVERE SEPSIS - Diagnostics X-ray: Report Reviewed - General Mental Status: Awake and Alert, Able to Follow Commands, Forgetful, Vague, Confused Attention: Distractible, Mild Impairment Ability to Follow Directions: Fair Head/Neck Control: Fair - Hearing Hearing: Impaired, Both Speech Evaluation - Communication Primary Language: BULGARIAN Secondary Language: KHMER Communication: Yes: Simple Responses Oral Expression Ability: Yes: Mild Impairment, Moderate Impairment - Speech Production Able to Make Needs Known: Yes: Mildly Impaired, Moderately Impaired Intelligibility: Yes: WNL - Speech Characteristics Voice Loudness: Normal Voice Pitch: Yes: Normal Voice Phonatory-based Quality: Yes: Normal Articulation: Yes: Precise Rate of Speech: Too Slow - Language/Auditory Comprehension Follows: Yes: 1 Stage Simple Commands Observation: Comprehends Conversational Speech: Yes (intermittent simple) - Language/Verbal Expression Aphasia: Yes: Anomia Able to Respond to Simple Queries: Yes: Mildly Impaired, Moderately Impaired - Swallow Evaluation/Bedside Assessment Current Nutritional Intake: Dysphagia Pureed, Thin Liquids Facial Symmetry at Rest: Symmetrical Facial Symmetry on Retraction: Symmetrical Against Resistance Opening: Normal Against Resistance Closing: Normal Pucker Lips: Normal Smile: Normal Lingual Movement: Normal, Symmetric Lingual Speed of Movement: Normal Lingual Movement Strgth Against Opposition: Normal Velopharyngeal Movement: Normal Laryngeal Movement: Able to Palpate, Labored,delay initiation Rate of Intake: Slow/Holding (intermittent) Labial Seal: WFL Oral Prep Time: Increased A-P Transit: Impaired Timing of Swallow: Delayed Coughing/Throat Clear: Yes (intermittent with thin liquid on a straw) Recommendations - Speech Evaluation, Impression/Plan Impression: Improving SU. Verbal but anomia and perseverative. Impaired memory. Oriented to hospital/kula. Intermittent oral holding and brief throat clear/cough intermittently with thin liquid on a straw - Dysphagia Impressions/Plan Dysphagia Impressions: Mild Impairment, Ongoing Evaluation *Silent aspiration: cannot be R/O at bedside Dysphagia Treatment Plan: Other (Monitor PO tolerance.) - Recommendations Diet Consistency: Dysphagia Pureed Medication Administration: Crushed with applesauce Liquids: Thin Liquids (single sips. Avoid straw drinking. if cough, downgrade to nectar thick liquids.)
--- NOTE | 2017-06-19 16:18 | PN ---
Physical Exam: NOTE: Pt seen and examined earlier in morning approximately 0730h SUBJECTIVE: 87yo F with significant history of recurrent UTI (hx of ESBL), recent L toe wound (cultured pseudomonas approximatley 1 week ago), dementia, and other multiple comorbid conditions who initially presented with fever/chills, productive cough, SOB found to have a recurrent UTI. In recent events, yesterday a DATE PULLER was called due to the pt becoming poorly responsive and having a BP of 80/36 which responded to fluid bolus of 500cc Normal saline. Currently, pt continues to be lethargic limiting HPI, however responds to verbal stimuli and will open her eyes. OBJECTIVE: Vital Signs Period Temp Pulse Resp BP Sys/Iniguez Pulse Ox Last 24 Hr 98.9 F-100.8 F 74-89 18-24 80-136/36-75 98-100 GENERAL: Lethargic, responsive to verbal stimuli with opening eyes. Does not follow commands HEENT: Dry mucosa. Could not ascertain rest of mouth due to compliance issues. EOMI, PERRL. No scleral icterus noted LUNGS: CTA b/l. No wheezes, rhonchi, rales noted HEART: Tachycardic, regular rhythm. 3/6 systolic murmur heard best at upper R sternal border ABDOMEN: Soft, normoactive bowel sounds, nondistended, nontender. EXTREMITIES: L foot trace edema, R foot no edema. Warmth of L>R foot. Dorsalis pedis pulses 2+ b/l SKIN: No rashes noted. No erythema noted. Stage 2 sacral decubitus ulcer Laboratory Results - last 24 hr 06/18/17 06/18/17 06/18/17 16:37 21:00 22:25 WBC RBC Hgb Hct MCV MCH MCHC RDW Plt Count MPV Neutrophils % Lymphocytes % Monocytes % Eosinophils % Basophils % Sodium Potassium Chloride Carbon Dioxide Anion Gap BUN Creatinine POC Glucometer 132 251 Random Glucose Calcium Phosphorus Magnesium Creatine Kinase 28 Troponin I < 0.02 06/19/17 06/19/17 06/19/17 05:40 06:04 07:50 WBC 12.6 H D RBC 3.25 L Hgb 9.3 L D Hct 28.0 L MCV 86.0 MCH 28.6 MCHC 33.2 RDW 16.3 H Plt Count 176 MPV 8.6 Neutrophils % 89.5 H Lymphocytes % 4.4 L D Monocytes % 5.6 Eosinophils % 0.4 Basophils % 0.1 Sodium 140 Potassium 4.4 Chloride 106 Carbon Dioxide 22 Anion Gap 12 BUN 22 H D Creatinine 0.7 D POC Glucometer 79 Random Glucose 76 D Calcium 8.2 L Phosphorus 3.5 Magnesium 1.7 L Creatine Kinase Troponin I 06/19/17 10:22 WBC RBC Hgb Hct MCV MCH MCHC RDW Plt Count MPV Neutrophils % Lymphocytes % Monocytes % Eosinophils % Basophils % Sodium Potassium Chloride Carbon Dioxide Anion Gap BUN Creatinine POC Glucometer 93 Random Glucose Calcium Phosphorus Magnesium Creatine Kinase Troponin I Active Medications Generic Name Dose Route Start Last Admin Trade Name Freq PRN Reason Stop Dose Admin Aspirin 81 mg 06/18/17 10:00 06/19/17 10:18 Asa - PO 81 mg DAILY [facility] Administration Atorvastatin Calcium 20 mg 06/18/17 22:00 06/18/17 23:00 Lipitor - PO Not Given HS SEAN Bethanechol Chloride 25 mg 06/18/17 06:00 06/19/17 13:49 Urecholine - PO 25 mg TID SEAN Administration Calcium Carbonate 1,300 mg 06/18/17 10:00 06/19/17 10:18 Calcium Carbonate - PO 1,300 mg BID SEAN Administration Clopidogrel Bisulfate 75 mg 06/18/17 10:00 06/19/17 10:18 Plavix - PO 75 mg DAILY [facility] Administration Docusate Sodium 100 mg 06/18/17 10:00 06/19/17 10:19 Colace - PO 100 mg BID SEAN Administration Duloxetine HCl 20 mg 06/18/17 10:00 06/19/17 10:19 Cymbalta - PO 20 mg DAILY SEAN Administration Ferrous Sulfate 325 mg 06/18/17 10:00 06/19/17 10:18 Feosol - PO 325 mg DAILY SEAN Administration Guaifenesin 10 ml 06/18/17 04:20 06/18/17 06:26 Robitussin - PO 10 ml Q6H PRN Administration COUGH Heparin Sodium (Porcine) 5,000 unit 06/18/17 06:00 06/19/17 13:43 Heparin - SQ Not Given TID SEAN Vancomycin HCl 1,250 mg/ 250 mls @ 166.667 mls/hr 06/18/17 16:48 06/18/17 17:39 Dextrose IVPB 166.667 mls/hr DAILY@1700 SEAN Administration Protocol Sodium Chloride 1,000 mls @ 100 mls/hr 06/18/17 17:41 06/18/17 18:48 Normal Saline - IV 100 mls/hr ASDIR SEAN Administration Meropenem 1 gm/ Dextrose 100 mls @ 100 mls/hr 06/19/17 18:00 IVPB Q8H-IV SEAN Protocol Insulin Aspart 1 vial 06/18/17 07:00 06/19/17 11:04 Novolog Vial Sliding Scale - SQ Not Given ACHS [facility] Protocol Lactobacillus Acidophilus 1 tab 06/18/17 10:00 06/19/17 10:18 Bacid - PO 1 tab DAILY SEAN Administration Polyethylene Glycol 17 gm 06/18/17 06:00 06/19/17 13:55 Miralax (For Daily Use) - PO Not Given TID SEAN Tamsulosin HCl 0.4 mg 06/18/17 08:30 06/19/17 10:18 Flomax - PO 0.4 mg DAILY@0830 SEAN Administration ASSESSMENT/PLAN: 1) Sepsis 2/2 UTI --Urine cultures pending; follow --Discontinue Zosyn --Adding Meropenem in light of increasing leukocytosis for Gram positive coverage --May be due to unresolved L great toe infection and history of ESBL --Will discuss with ID --Possible step down once cultures come back if ESBL is ruled out 2) Hypotension --BP this morning 136/75 --Hold anti-hypertensive medications (Metoprolol and Norvasc) --Might be due to poor oral intake; currently 100cc/hr Normal saline 3) Cough --Flu swab negative --Viral PCR pending 4) DM --Continue BGM --ISS coverage 5) CAD --ASA 81mg --Plavix 75mg 6) HLD --Atorvastatin 10mg FEN: Fluids: NS 100cc/hr Electrolytes: Mg 1.7; will replete with 2gm Mg Nutrition: Swallow evaluation: Dysphagia puree diet; possibly thin liquids with low threshold to downgrade to nectar-thickened liquids PPX: DVT: Heparin 5000U SQ TID Dispo: Continue current floor management Case discussed with Dr. Peg More, DO - Internal Medicine PGY-1 Visit type - Emergency Visit Emergency Visit: No - New Patient This patient is new to me today: Yes Date on this admission: 06/19/17 - Critical Care Critical Care patient: No
--- NOTE | 2017-06-19 16:44 | PN ---
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, Physician History of Present Illness: stable no issues - Current Medication List Current Medications: Active Medications Aspirin (Asa -) 81 mg PO DAILY [facility] Last Admin: 06/19/17 10:18 Dose: 81 mg Atorvastatin Calcium (Lipitor -) 20 mg PO HS [facility] Last Admin: 06/18/17 23:00 Dose: Not Given Bethanechol Chloride (Urecholine -) 25 mg PO TID [facility] Last Admin: 06/19/17 13:49 Dose: 25 mg Calcium Carbonate (Calcium Carbonate -) 1,300 mg PO BID [facility] Last Admin: 06/19/17 10:18 Dose: 1,300 mg Clopidogrel Bisulfate (Plavix -) 75 mg PO DAILY [facility] Last Admin: 06/19/17 10:18 Dose: 75 mg Docusate Sodium (Colace -) 100 mg PO BID [facility] Last Admin: 06/19/17 10:19 Dose: 100 mg Duloxetine HCl (Cymbalta -) 20 mg PO DAILY [facility] Last Admin: 06/19/17 10:19 Dose: 20 mg Ferrous Sulfate (Feosol -) 325 mg PO DAILY [facility] Last Admin: 06/19/17 10:18 Dose: 325 mg Guaifenesin (Robitussin -) 10 ml PO Q6H PRN PRN Reason: COUGH Last Admin: 06/18/17 06:26 Dose: 10 ml Heparin Sodium (Porcine) (Heparin -) 5,000 unit SQ TID [facility] Last Admin: 06/19/17 13:43 Dose: Not Given Vancomycin HCl 1,250 mg/ (Dextrose) 250 mls @ 166.667 mls/hr IVPB DAILY@1700 [facility] PRN Reason: Protocol Last Admin: 06/18/17 17:39 Dose: 166.667 mls/hr Sodium Chloride (Normal Saline -) 1,000 mls @ 100 mls/hr IV ASDIR [facility] Last Admin: 06/18/17 18:48 Dose: 100 mls/hr Meropenem 1 gm/ Dextrose 100 mls @ 100 mls/hr IVPB Q8H-IV [facility] PRN Reason: Protocol Insulin Aspart (Novolog Vial Sliding Scale -) 1 vial SQ ACHS [facility] PRN Reason: Protocol Last Admin: 06/19/17 11:04 Dose: Not Given Lactobacillus Acidophilus (Bacid -) 1 tab PO DAILY [facility] Last Admin: 10/23/17 10:18 Dose: 1 tab Polyethylene Glycol (Miralax (For Daily Use) -) 17 gm PO TID [facility] Last Admin: 06/19/17 13:55 Dose: Not Given Tamsulosin HCl (Flomax -) 0.4 mg PO DAILY@0830 [facility] Last Admin: 06/19/17 10:18 Dose: 0.4 mg - Objective Vital Signs: Vital Signs Temperature 99.7 F H 06/19/17 13:45 Pulse Rate 89 06/19/17 13:45 Respiratory Rate 18 06/19/17 10:00 Blood Pressure 126/75 06/19/17 13:45 O2 Sat by Pulse Oximetry (%) 100 06/19/17 09:00 Constitutional: Yes: No Distress, Calm Cardiovascular: Yes: Regular Rate and Rhythm Respiratory: Yes: Regular, CTA Bilaterally Gastrointestinal: Yes: Normal Bowel Sounds, Soft Musculoskeletal: Yes: Other Extremities: Yes: Other Neurological: Yes: Alert Psychiatric: Yes: Alert Labs: CBC, BMP 06/19/17 07:50 06/19/17 05:40 Assessment/Plan sepsis cough dm cad plan continue abx await for identification i am leaning towards ordering tte and then dionne rest continue as per primary
--- NOTE | 2017-06-19 17:09 | PN ---
Teaching Attending Note Name of Resident: London More ATTENDING PHYSICIAN STATEMENT I saw and evaluated the patient. I reviewed the resident's note and discussed the case with the resident. I agree with the resident's findings and plan as documented. SUBJECTIVE: hypotensive last night , was given IVF bolus . OBJECTIVE: NAD , awake, alert , minimal verbal response. CV: RRR, 3/6 SM at base , with 3/6 SM at LLSB Lungs: CTAB Abd: soft, NT, ND , NL BS Ext: L foot edema with increased warmth. No erythema, no erythema or drainage form toes. Neuro : no facial droop,deformed pupils , not reactive to light Assessment/Plan: 87 y/o lady with h/o HTN, CAD , CVA , dementia, HLp, Dm and other medical problems including recent hospitalization for L great toe infection , who presented with decreased responsiveness and dry cough. She was found to have severe sepsis . 1- Severe sepsis: due to complicated UTI in addition to cellulitis of L foot and now bacteremia G+ cocci inclusters ) - switch zosyn to meropenem to cover ESBL ( has x of it ) , and pseudomonas ( 9form foot cx ). also cont vanco - possibility of bladder cancer , might need cystoscopy. - follow urine cx and final blood cx .will repeat in am - COnt IVF 2- Hypotension : likely due to volume depletion and sepsis . - treat sepsis - cont IVF . follow BUN/cr - Hold anti Hypertensives 2- H/o CAD , CVA. - Cont ASA , plavix, and statin . hold BP meds 3- DM : hold metformin and cont SSI 4-Nutrition : eveluated by speech. puree diet with thin liquids . DVT PX . heparin sq
[2017-06-19] MEDS: ACETAMINOPHEN 325 MG TABLET (FP) PO PRN ×2 (17:24→21:38)
[2017-06-19] MEDS: VANCOMYCIN 1,250 MG in DEXTROSE 5%-WATER - 250 ML IVPB SCH (17:43)
[2017-06-19] MEDS ORDERED: MEROPENEM 1 GM in DEXTROSE 5%-WATER - 100 ML IVPB SCH (18:00)
[2017-06-19] MEDS: SODIUM CHLORIDE 1,000 ML IV SCH (18:23)
[2017-06-19] MEDS: ATORVASTATIN CA 20 MG TABLET (FP) PO SCH (21:38)
[2017-06-20] MEDS: SODIUM CHLORIDE 1,000 ML IV SCH ×2 (00:30→11:02)
[2017-06-20] MEDS: HEPARIN NA (PORCINE) 5,000 UNITS/ML 1ML VIAL SQ SCH ×3 (06:48→22:37)
[2017-06-20] MEDS: ACETAMINOPHEN 325 MG TABLET (FP) PO PRN (06:49)
[2017-06-20] MEDS: POLYETHYLENE GLYCOL 3350 119 GM BTL PO SCH ×3 (06:49→22:40)
[2017-06-20] MEDS: BETHANECHOL CHLORIDE 25 MG TABLET PO SCH ×3 (06:50→22:43)
[2017-06-20] MEDS: INSULIN SLIDING SCALE (NOVOLOG) 1 VIAL SQ SCH ×4 (06:58→22:42)
[2017-06-20] MEDS ORDERED: amLODIPine BESYLATE 5 MG TABLET (FP) PO SCH ×2 (07:25→10:00)
[2017-06-20 08:28] LABS: BASOPHIL 0.1 % (0-2.0); EOSINOPHIL 0.6 % (0-4.5); MCH 28.3 pg (25.7-33.7); MCHC 33.1 g/dl (32.0-36.0); MEAN CELL VOLUME 85.5 fl (80-96); NEUTROPHILS 84.7 % (42.8-82.8); PLATELET COUNT 188 K/MM3 (134-434); RDW 16.1 % (11.6-15.6); WHITE BLOOD COUNT 11.1 K/mm3 (4.0-10.0)
[2017-06-20] MEDS: TAMSULOSIN HCL 0.4 MG CAP.ER.24H (FP) PO SCH (08:45)
[2017-06-20 08:59] LABS: ANION GAP 11 (8-16); CALCIUM 8.1 mg/dL (8.5-10.1); CO2 21 mmol/L (21-32); GLUCOSE,RANDOM 116 mg/dL (74-106)
[2017-06-20 09:01] LABS: CREATININE 0.5 mg/dL (0.55-1.02)
[2017-06-20] MEDS ORDERED: PT OWN MED DRAWER 7, Y5N ONE (09:53)
[2017-06-20] MEDS: LACTOBACILLUS ACIDOPHILUS 1 EACH TAB (FP) PO SCH (10:01)
[2017-06-20] MEDS: CALCIUM CARBONATE 650 MG TABLET PO SCH ×2 (10:01→22:35)
[2017-06-20] MEDS: DULoxetine HCL 20 MG CAPSULE.DR (FP) PO SCH (10:01)
[2017-06-20] MEDS: FERROUS SO4 325 MG TABLET (FP) PO SCH (10:01)
[2017-06-20] MEDS: CLOPIDOGREL BISULFATE 75 MG TABLET (FP) PO SCH (10:01)
[2017-06-20] MEDS: DOCUSATE SODIUM 100 MG CAPSULE (FP) PO SCH ×2 (10:01→22:36)
[2017-06-20] MEDS: ASPIRIN 81 MG CHEWABLE TABLETS PO SCH (10:02)
[2017-06-20] MEDS ORDERED: INSULIN (NOVOLOG) ASPART 100 UNITS/ML 10ML VIAL ONE ×2 (12:29→16:54)
--- NOTE | 2017-06-20 13:11 | PN ---
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 - Note 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: Selected Entries 06/19/17 06/19/17 06/19/17 03:07 06:13 10:00 Breakfast Diet Tolerated Lunch Supper Temperature 99.1 F 98.9 F 98.9 F 06/19/17 06/19/17 06/19/17 10:26 13:45 19:00 Breakfast 25% Diet Tolerated Lunch 100% Supper 75% Temperature 99.7 F H 102.8 F H 06/19/17 06/19/17 06/19/17 21:06 21:11 23:44 Breakfast Diet Tolerated Lunch Supper Temperature 102.7 F H 101 F H 99.2 F 06/20/17 06/20/17 06/20/17 01:33 06:21 08:02 Breakfast Diet Tolerated Lunch Supper Temperature 99.5 F 99.3 F 99.3 F 06/20/17 06/20/17 09:56 10:50 Breakfast 100% Diet Tolerated Well Lunch Supper Temperature 99.9 F H Doing very well with present diet.
[2017-06-20] MEDS: VANCOMYCIN 1,250 MG in DEXTROSE 5%-WATER - 250 ML IVPB SCH ×2 (16:48→17:57)
--- NOTE | 2017-06-20 19:33 | PN ---
Teaching Attending Note Name of Resident: London More ATTENDING PHYSICIAN STATEMENT I saw and evaluated the patient. I reviewed the resident's note and discussed the case with the resident. I agree with the resident's findings and plan as documented. SUBJECTIVE: no events over night OBJECTIVE: NAD , awake, alert , minimal verbal response. CV: RRR, 3/6 SM at base , with 3/6 SM at LLSB Lungs: bibasilar crackles Abd: soft, NT, ND , NL BS Ext: B/l foot edema Neuro : no facial droop,deformed pupils , not reactive to light skin: stage 2 decub on coccyx , no surrounding erythema or discharge Assessment/Plan: 87 y/o lady with h/o HTN, CAD , CVA , dementia, HLp, Dm and other medical problems including recent hospitalization for L great toe infection , who presented with decreased responsiveness and dry cough. She was found to have severe sepsis . 1- Severe sepsis: due to complicated UTI in addition to cellulitis of L foot positive blood cx is likely contaminant - Cont meropenem to cover ESBL ( has x of ESBL UTI ) , and pseudomonas ( form foot cx ). - will ask ID if vanco is needed and if meropenem needs to be switched to zosyn . as urine cx ( taken after abx were given ) grew yeast only - possibility of bladder cancer o n previous imaging , might need cystoscopy. Uro consult is pending - follow urine cx and final blood cx .will repeat in am - DC IVF as 2- Hypotension : likely due to volume depletion and sepsis . BUN improved and now pt is hypervolemic . - stop IVF - resume BB as BP is elevated again - COnt to hold norvasc and Imdur 2- H/o CAD , CVA. - Cont ASA , plavix, and statin . BP meds as above 3- DM : hold metformin and cont SSI 4-Nutrition : evaluated by speech. puree diet with thin liquids . PO intake improved DVT PX . heparin sq
--- NOTE | 2017-06-20 20:21 | PN ---
Physical Exam: Note: Pt seen and examined 06/19 at 07:40h SUBJECTIVE: Pt's blood pressure consistently elevated; currently 166/90. Pt has become alert and back to baseline with alert to spontaneous stimulus. She also states she is in no pain currently. OBJECTIVE: Vital Signs Period Temp Pulse Resp BP Sys/Iniguez Pulse Ox Last 24 Hr 98.9 F-102.7 F 80-93 20-20 126-166/61-90 97-97 GENERAL: Alert, no acute distress. Resting comfortably in bed HEENT: Moist mucosa. EOMI, PERRL. No scleral icterus noted LUNGS: Rales noted on bases of lungs on auscultation. Regular rate of breathing. On 2LNC HEART: Tachycardic, regular rhythm. 3/6 systolic murmur heard best at upper R sternal border ABDOMEN: Soft, normoactive bowel sounds, nondistended, nontender. EXTREMITIES: Edema bilaterally. No evidence of erythema noted feet. Bilateraly 2 + dorsalis pedis pulses SKIN: No rashes noted. No erythema noted. Stage 2 sacral decubitus ulcer without purulence or erythema noted Laboratory Results - last 24 hr 06/19/17 06/20/17 06/20/17 21:56 05:40 06:57 WBC RBC Hgb Hct MCV MCH MCHC RDW Plt Count MPV Neutrophils % Lymphocytes % Monocytes % Eosinophils % Basophils % Sodium Potassium Chloride Carbon Dioxide Anion Gap BUN Creatinine POC Glucometer 183 101 Random Glucose Calcium Magnesium 2.1 D 06/20/17 06/20/17 06/20/17 08:10 08:10 12:04 WBC 11.1 H RBC 3.12 L Hgb 8.8 L Hct 26.7 L MCV 85.5 MCH 28.3 MCHC 33.1 RDW 16.1 H Plt Count 188 MPV 8.0 Neutrophils % 84.7 H Lymphocytes % 7.6 L D Monocytes % 7.0 Eosinophils % 0.6 Basophils % 0.1 Sodium 139 Potassium 3.8 Chloride 107 Carbon Dioxide 21 Anion Gap 11 BUN 14 D Creatinine 0.5 L D POC Glucometer 200 Random Glucose 116 H D Calcium 8.1 L Magnesium 06/20/17 16:31 WBC RBC Hgb Hct MCV MCH MCHC RDW Plt Count MPV Neutrophils % Lymphocytes % Monocytes % Eosinophils % Basophils % Sodium Potassium Chloride Carbon Dioxide Anion Gap BUN Creatinine POC Glucometer 165 Random Glucose Calcium Magnesium Active Medications Generic Name Dose Route Start Last Admin Trade Name Freq PRN Reason Stop Dose Admin Acetaminophen 650 mg 06/19/17 17:19 06/20/17 06:49 Tylenol - PO 650 mg Q4H PRN Administration FEVER OR PAIN Aspirin 81 mg 06/18/17 10:00 06/20/17 10:02 Asa - PO 81 mg DAILY [facility] Administration Atorvastatin Calcium 20 mg 06/18/17 22:00 06/19/17 21:38 Lipitor - PO 20 mg HS [facility] Administration Bethanechol Chloride 25 mg 06/18/17 06:00 06/20/17 14:13 Urecholine - PO 25 mg TID [facility] Administration Calcium Carbonate 1,300 mg 06/18/17 10:00 06/20/17 10:01 Calcium Carbonate - PO 1,300 mg BID [facility] Administration Clopidogrel Bisulfate 75 mg 06/18/17 10:00 06/20/17 10:01 Plavix - PO 75 mg DAILY [facility] Administration Docusate Sodium 100 mg 06/18/17 10:00 06/20/17 10:01 Colace - PO 100 mg BID [facility] Administration Duloxetine HCl 20 mg 06/18/17 10:00 06/20/17 10:01 Cymbalta - PO 20 mg DAILY [facility] Administration Ferrous Sulfate 325 mg 06/18/17 10:00 06/20/17 10:01 Feosol - PO 325 mg DAILY [facility] Administration Guaifenesin 10 ml 06/18/17 04:20 06/18/17 06:26 Robitussin - PO 10 ml Q6H PRN Administration COUGH Heparin Sodium (Porcine) 5,000 unit 06/18/17 06:00 06/20/17 14:13 Heparin - SQ 5,000 unit TID [facility] Administration Vancomycin HCl 1,250 mg/ 250 mls @ 166.667 mls/hr 06/18/17 16:48 06/20/17 17:57 Dextrose IVPB 166.667 mls/hr DAILY@1700 [facility] Administration Protocol Meropenem 1 gm/ Dextrose 100 mls @ 100 mls/hr 06/19/17 18:00 IVPB Q8H-IV [facility] Protocol Insulin Aspart 1 vial 06/18/17 07:00 06/20/17 16:47 Novolog Vial Sliding Scale - SQ 2 units ACHS [facility] Administration Protocol Lactobacillus Acidophilus 1 tab 06/18/17 10:00 06/20/17 10:01 Bacid - PO 1 tab DAILY [facility] Administration Metoprolol Succinate 75 mg 06/21/17 10:00 Toprol Xl - PO DAILY [facility] Polyethylene Glycol 17 gm 06/18/17 06:00 06/20/17 14:13 Miralax (For Daily Use) - PO 17 gm TID [facility] Administration Tamsulosin HCl 0.4 mg 06/18/17 08:30 06/20/17 08:45 Flomax - PO 0.4 mg DAILY@0830 [facility] Administration ASSESSMENT/PLAN: 1) Sepsis 2/2 UTI --Urine cultures with "yeast-like organism" most likely being a contaminate --Blood cultures with 1/4 bottles showing Gram + cocci in clusters --Most likely contaminate but will repeat cultures and follow --Cont. Meropenem for ESBL coverage due to history of previous UTI; History of pseudomonas from previous L great toe wound culture --ID on board 2) Hypertension --Restarted Norvasc 5mg PO qDaily --Follow BP --D/C IVF 3) Cough --Flu swab negative --Viral PCR pending 4) DM --Continue BGM --ISS coverage 5) CAD --ASA 81mg --Plavix 75mg 6) HLD --Atorvastatin 10mg FEN: Fluids: D/C fluids Electrolytes: None Nutrition: Swallow evaluation: Dysphagia puree diet; possibly thin liquids with low threshold to downgrade to nectar-thickened liquids PPX: DVT: Heparin 5000U SQ TID Dispo: Continue current floor management Case discussed with Dr. Peg More, DO - Internal Medicine PGY-1 Visit type - Emergency Visit Emergency Visit: No - New Patient This patient is new to me today: No - Critical Care Critical Care patient: No
[2017-06-20] MEDS: ATORVASTATIN CA 20 MG TABLET (FP) PO SCH (22:38)
[2017-06-20] MEDS: guaiFENesin 200 MG/10 ML 10 ML UNIT-DOSE CUPS PO PRN (22:53)
[2017-06-21] MEDS: ACETAMINOPHEN 325 MG TABLET (FP) PO PRN (01:27)
[2017-06-21] MEDS: HEPARIN NA (PORCINE) 5,000 UNITS/ML 1ML VIAL SQ SCH ×3 (06:28→22:54)
[2017-06-21] MEDS: POLYETHYLENE GLYCOL 3350 119 GM BTL PO SCH ×3 (06:29→22:54)
[2017-06-21] MEDS: BETHANECHOL CHLORIDE 25 MG TABLET PO SCH ×3 (06:30→22:53)
[2017-06-21] MEDS: INSULIN SLIDING SCALE (NOVOLOG) 1 VIAL SQ SCH ×4 (06:30→23:02)
[2017-06-21 07:13] LABS: MCH 28.8 pg (25.7-33.7); MEAN CELL VOLUME 84.6 fl (80-96); MEAN PLT VOLUME 8.2 fl (7.5-11.1); PLATELET COUNT 200 K/MM3 (134-434); RDW 15.7 % (11.6-15.6); WHITE BLOOD COUNT 9.8 K/mm3 (4.0-10.0)
[2017-06-21 07:43] LABS: ALBUMIN 2.3 g/dl (3.4-5.0); ALK PHOS 59 U/L (45-117); ANION GAP 7 (8-16); BILIRUBIN,TOTAL 0.5 mg/dL (0.2-1.0); CALCIUM 7.7 mg/dL (8.5-10.1); CO2 24 mmol/L (21-32); CREATININE 0.6 mg/dL (0.55-1.02); GLUCOSE,RANDOM 100 mg/dL (74-106); SGOT/AST 11 U/L (15-37); SGPT/ALT 9 U/L (12-78); TOT PROT 5.8 g/dl (6.4-8.2)
[2017-06-21] MEDS ORDERED: METOPROLOL SUCCINATE 50 MG TAB.SR.24H (FP) PO SCH (10:00)
[2017-06-21] MEDS: LACTOBACILLUS ACIDOPHILUS 1 EACH TAB (FP) PO SCH (10:01)
[2017-06-21] MEDS: CALCIUM CARBONATE 650 MG TABLET PO SCH ×2 (10:01→22:53)
[2017-06-21] MEDS: TAMSULOSIN HCL 0.4 MG CAP.ER.24H (FP) PO SCH (10:01)
[2017-06-21] MEDS: DOCUSATE SODIUM 100 MG CAPSULE (FP) PO SCH ×2 (10:01→22:53)
[2017-06-21] MEDS: ASPIRIN 81 MG CHEWABLE TABLETS PO SCH (10:02)
[2017-06-21] MEDS: CLOPIDOGREL BISULFATE 75 MG TABLET (FP) PO SCH (10:02)
[2017-06-21] MEDS: METOPROLOL SUCCINATE 50 MG TAB.SR.24H (FP) PO SCH (10:02)
[2017-06-21] MEDS: FERROUS SO4 325 MG TABLET (FP) PO SCH (10:02)
[2017-06-21] MEDS: DULoxetine HCL 20 MG CAPSULE.DR (FP) PO SCH (10:04)
[2017-06-21] MEDS ORDERED: PT OWN MED DRAWER 7, Y5N ONE (10:04)
[2017-06-21] MEDS: amLODIPine BESYLATE 5 MG TABLET (FP) PO SCH (12:49)
--- NOTE | 2017-06-21 12:50 | PN ---
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: Selected Entries 06/19/17 06/19/17 06/19/17 03:07 06:13 10:00 Breakfast Lunch Supper Temperature 99.1 F 98.9 F 98.9 F 06/19/17 06/19/17 06/19/17 13:45 19:00 21:06 Breakfast Lunch Supper Temperature 99.7 F H 102.8 F H 102.7 F H 06/19/17 06/19/17 06/20/17 21:11 23:44 01:33 Breakfast Lunch Supper Temperature 101 F H 99.2 F 99.5 F 06/20/17 06/20/17 06/20/17 06:21 08:02 09:56 Breakfast Lunch Supper Temperature 99.3 F 99.3 F 99.9 F H 06/20/17 06/20/17 06/20/17 10:50 13:27 14:49 Breakfast 100% Lunch 100% Supper Temperature 98.9 F 06/20/17 06/20/17 06/21/17 19:00 22:00 06:00 Breakfast Lunch Supper 100% Temperature 99.2 F 99.2 F 99.1 F 06/21/17 06/21/17 09:45 10:43 Breakfast 100% Lunch Supper Temperature 98.6 F Laboratory Tests 06/19/17 06/20/17 06/21/17 07:50 08:10 05:56 WBC 12.6 H D 11.1 H 9.8 Reported to be congested/coughing 06/21 T 101 Last cxr 06/17 on nursing note?
--- NOTE | 2017-06-21 13:46 | PN ---
Teaching Attending Note Name of Resident: London More ATTENDING PHYSICIAN STATEMENT I saw and evaluated the patient. I reviewed the resident's note and discussed the case with the resident. I agree with the resident's findings and plan as documented. SUBJECTIVE:asymptomatic. denies CP, SOB, fever, chills, N/V/C/D OBJECTIVE: Last Vital Signs Temp Pulse Resp BP Pulse Ox 98.6 F 82 17 158/75 100 06/21/17 09:45 06/21/17 09:45 06/21/17 09:45 06/21/17 12:45 06/20/17 21:00 General NAD CV S1 S2 RRR +murmur Lungs CTA B/L no wheezing/rales/rhonchi abdomen soft NT/ND Extremiteis no edema, no erythema ASSESSMENT AND PLAN: 87 yo F with PMH HTN, CAD , CVA , dementia, dyslipidemia, Dm and other medical problems including recent hospitalization for L great toe infection , who presented with decreased responsiveness and dry cough. She was found to have severe sepsis . 1. Severe sepsis: due to complicated UTI- clinically improved. afebrile 48H. Bcx likely contaminate, however given murmur on exam and no mention of murmur on past admission will obtain Echo to r/o endocarditis. Bcx repeated. on Vanco day 3. will need to check vanco level. positive blood cx is likely contaminant 2. Hypotension- now HTN. will slowly re-start home medication to optimize blood pressure 3. Acute anemia- likely dilutional. now stable. will check iron studies. no indication for txn at this time 4. CAD-on asa/plavix/statin 5. DM- hold oral agents. cont iss 6. DVT ppx- hep sq
--- NOTE | 2017-06-21 16:55 | PN ---
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, Physician History of Present Illness: stable no new issues - Current Medication List Current Medications: Active Medications Acetaminophen (Tylenol -) 650 mg PO Q4H PRN PRN Reason: FEVER OR PAIN Last Admin: 06/21/17 01:27 Dose: 650 mg Amlodipine Besylate (Norvasc -) 5 mg PO DAILY [facility] Last Admin: 06/21/17 12:49 Dose: 5 mg Aspirin (Asa -) 81 mg PO DAILY [facility] Last Admin: 06/21/17 10:02 Dose: 81 mg Atorvastatin Calcium (Lipitor -) 20 mg PO HS [facility] Last Admin: 06/20/17 22:38 Dose: 20 mg Bethanechol Chloride (Urecholine -) 25 mg PO TID [facility] Last Admin: 06/21/17 14:17 Dose: 25 mg Calcium Carbonate (Calcium Carbonate -) 1,300 mg PO BID [facility] Last Admin: 06/21/17 10:01 Dose: 1,300 mg Clopidogrel Bisulfate (Plavix -) 75 mg PO DAILY [facility] Last Admin: 06/21/17 10:02 Dose: 75 mg Docusate Sodium (Colace -) 100 mg PO BID [facility] Last Admin: 06/21/17 10:01 Dose: 100 mg Duloxetine HCl (Cymbalta -) 20 mg PO DAILY [facility] Last Admin: 06/21/17 10:04 Dose: 20 mg Ferrous Sulfate (Feosol -) 325 mg PO DAILY [facility] Last Admin: 06/21/17 10:02 Dose: 325 mg Guaifenesin (Robitussin -) 10 ml PO Q6H PRN PRN Reason: COUGH Last Admin: 06/20/17 22:53 Dose: 10 ml Heparin Sodium (Porcine) (Heparin -) 5,000 unit SQ TID [facility] Last Admin: 06/21/17 14:17 Dose: 5,000 unit Vancomycin HCl 1,250 mg/ (Dextrose) 250 mls @ 166.667 mls/hr IVPB DAILY@1700 [facility] PRN Reason: Protocol Last Admin: 06/20/17 17:57 Dose: 166.667 mls/hr Meropenem 1 gm/ Dextrose 100 mls @ 100 mls/hr IVPB Q8H-IV [facility] PRN Reason: Protocol Insulin Aspart (Novolog Vial Sliding Scale -) 1 vial SQ ACHS [facility] PRN Reason: Protocol Last Admin: 06/21/17 12:37 Dose: 2 units Lactobacillus Acidophilus (Bacid -) 1 tab PO DAILY [facility] Last Admin: 06/21/17 10:01 Dose: 1 tab Metoprolol Succinate (Toprol Xl -) 75 mg PO DAILY [facility] Last Admin: 06/21/17 10:02 Dose: 75 mg Polyethylene Glycol (Miralax (For Daily Use) -) 17 gm PO TID [facility] Last Admin: 06/21/17 14:28 Dose: 17 gm Tamsulosin HCl (Flomax -) 0.4 mg PO DAILY@0830 [facility] Last Admin: 06/21/17 10:01 Dose: 0.4 mg - Objective Vital Signs: Vital Signs Temperature 99.4 F 06/21/17 14:34 Pulse Rate 85 06/21/17 14:34 Respiratory Rate 17 06/21/17 09:45 Blood Pressure 150/74 06/21/17 14:34 O2 Sat by Pulse Oximetry (%) 100 06/20/17 21:00 Constitutional: Yes: No Distress, Calm Cardiovascular: Yes: Regular Rate and Rhythm, Murmur Respiratory: Yes: Regular, CTA Bilaterally Gastrointestinal: Yes: Normal Bowel Sounds, Soft Musculoskeletal: Yes: Other Extremities: Yes: Other Neurological: Yes: Alert, Other Labs: CBC, BMP 06/21/17 05:56 06/21/17 05:56 Assessment/Plan sepsis cough dm cad gm positive bacteremia plan continue abx await for identification repeat cx negative rest continue as per primary
[2017-06-21] MEDS ORDERED: INSULIN (NOVOLOG) ASPART 100 UNITS/ML 10ML VIAL ONE (17:23)
[2017-06-21] MEDS: VANCOMYCIN 1,250 MG in DEXTROSE 5%-WATER - 250 ML IVPB SCH (17:26)
--- NOTE | 2017-06-21 18:20 | CONSULT ---
Consult - text type - Consultation Consultation Note: 87 yo female w sepsis voiding spontaneously Cr 0.6 wbc nl blood cult neg Uc x pos yeast now Renal sonogram nl PVR 271 on bladder sono currently on flomax Would double flomax if medicall approved Would follow pvr May require urodynamics poss urethral dilation in future Thanks
--- NOTE | 2017-06-21 19:34 | PN ---
Physical Exam: Late Entry: pt seen in AM SUBJECTIVE: No acute events overnight. Pt still alert to baseline. No complaints voiced. OBJECTIVE: Vital Signs Period Temp Pulse Resp BP Sys/Iniguez Pulse Ox Last 24 Hr 98.6 F-99.4 F 82-96 16-20 150-171/71-85 97-100 GENERAL: Alert, no acute distress. Resting comfortably in bed HEENT: Moist mucosa. EOMI, PERRL. No scleral icterus noted LUNGS: CTA bilaterally. Regular rate of breathing. On 2LNC HEART: Tachycardic, regular rhythm. 3/6 systolic murmur heard best at upper R sternal border ABDOMEN: Soft, normoactive bowel sounds, nondistended, nontender. EXTREMITIES: Edema bilaterally; decreased RLE compared to yesterday. No evidence of erythema noted feet. Bilateraly 2+ dorsalis pedis pulses SKIN: No rashes noted. No erythema noted. Stage 2 sacral decubitus ulcer without purulence or erythema noted Laboratory Results - last 24 hr 06/20/17 06/21/17 06/21/17 22:42 05:56 05:56 WBC 9.8 RBC 3.07 L Hgb 8.8 L Hct 26.0 L MCV 84.6 MCH 28.8 MCHC 34.0 RDW 15.7 H Plt Count 200 MPV 8.2 Sodium 139 Potassium 3.9 Chloride 108 H Carbon Dioxide 24 Anion Gap 7 L BUN 14 Creatinine 0.6 Creat Clearance w eGFR > 60 POC Glucometer 215 Random Glucose 100 Calcium 7.7 L Total Bilirubin 0.5 D AST 11 L D ALT 9 L D Alkaline Phosphatase 59 Total Protein 5.8 L Albumin 2.3 L D 06/21/17 06/21/17 06/21/17 06:28 12:19 16:47 WBC RBC Hgb Hct MCV MCH MCHC RDW Plt Count MPV Sodium Potassium Chloride Carbon Dioxide Anion Gap BUN Creatinine Creat Clearance w eGFR POC Glucometer 104 198 175 Random Glucose Calcium Total Bilirubin AST ALT Alkaline Phosphatase Total Protein Albumin Active Medications Generic Name Dose Route Start Last Admin Trade Name Freq PRN Reason Stop Dose Admin Acetaminophen 650 mg 06/19/17 17:19 06/21/17 01:27 Tylenol - PO 650 mg Q4H PRN Administration FEVER OR PAIN Amlodipine Besylate 5 mg 06/21/17 12:00 06/21/17 12:49 Norvasc - PO 5 mg DAILY [facility] Administration Aspirin 81 mg 06/18/17 10:00 06/21/17 10:02 Asa - PO 81 mg DAILY [facility] Administration Atorvastatin Calcium 20 mg 06/18/17 22:00 06/20/17 22:38 Lipitor - PO 20 mg HS [facility] Administration Bethanechol Chloride 25 mg 06/18/17 06:00 06/21/17 14:17 Urecholine - PO 25 mg TID [facility] Administration Calcium Carbonate 1,300 mg 06/18/17 10:00 06/21/17 10:01 Calcium Carbonate - PO 1,300 mg BID [facility] Administration Clopidogrel Bisulfate 75 mg 06/18/17 10:00 06/21/17 10:02 Plavix - PO 75 mg DAILY [facility] Administration Docusate Sodium 100 mg 06/18/17 10:00 06/21/17 10:01 Colace - PO 100 mg BID [facility] Administration Duloxetine HCl 20 mg 06/18/17 10:00 06/21/17 10:04 Cymbalta - PO 20 mg DAILY [facility] Administration Ferrous Sulfate 325 mg 06/18/17 10:00 06/21/17 10:02 Feosol - PO 325 mg DAILY [facility] Administration Guaifenesin 10 ml 06/18/17 04:20 06/20/17 22:53 Robitussin - PO 10 ml Q6H PRN Administration COUGH Heparin Sodium (Porcine) 5,000 unit 06/18/17 06:00 06/21/17 14:17 Heparin - SQ 5,000 unit TID [facility] Administration Vancomycin HCl 1,250 mg/ 250 mls @ 166.667 mls/hr 06/18/17 16:48 06/21/17 17:26 Dextrose IVPB 166.667 mls/hr DAILY@1700 [facility] Administration Protocol Meropenem 1 gm/ Dextrose 100 mls @ 100 mls/hr 06/19/17 18:00 IVPB Q8H-IV [facility] Protocol Insulin Aspart 1 vial 06/18/17 07:00 06/21/17 17:26 Novolog Vial Sliding Scale - SQ 2 units ACHS [facility] Administration Protocol Lactobacillus Acidophilus 1 tab 06/18/17 10:00 06/21/17 10:01 Bacid - PO 1 tab DAILY [facility] Administration Metoprolol Succinate 75 mg 06/21/17 10:00 06/21/17 10:02 Toprol Xl - PO 75 mg DAILY [facility] Administration Polyethylene Glycol 17 gm 06/18/17 06:00 06/21/17 14:28 Miralax (For Daily Use) - PO 17 gm TID [facility] Administration Tamsulosin HCl 0.4 mg 06/18/17 08:30 06/21/17 10:01 Flomax - PO 0.4 mg DAILY@0830 [facility] Administration ASSESSMENT/PLAN: 1) Sepsis 2/2 UTI --Urine cultures with "yeast-like organism" most likely being a contaminate --Blood cultures with 1/4 bottles showing Gram + cocci in clusters --Most likely contaminate; repeat cultures negative so far --Vanco Trough before 4th vanco dose today; will f/u for appropriate level ( goal 15-20) --ID on board --PT ordered; OOB to chair with assist ordered --Discussed with ID; due to murmur will do TTE to rule out any abnormalities/ vegetation on valves. 2) Hypertension --Changed Norvasc to Toprol XL 75mg (home dose) due to benefit towards history of CAD --Stable with change; will add Norvasc 5mg PO to regiment to return to home dosing --Follow BP 3) DM --Continue BGM --ISS coverage 4) CAD --ASA 81mg --Plavix 75mg 5) HLD --Atorvastatin 10mg 6) Anemia --ORdered iron studies for tomorrow AM FEN: Fluids: None indicated currently Electrolytes: None Nutrition: Swallow evaluation: Dysphagia puree diet; possibly thin liquids with low threshold to downgrade to nectar-thickened liquids PPX: DVT: Heparin 5000U SQ TID Dispo: Continue current floor management Case discussed with Dr. Kaylynn More, DO - Internal Medicine PGY-1 Visit type - Emergency Visit Emergency Visit: No - New Patient This patient is new to me today: No - Critical Care Critical Care patient: No
[2017-06-21] MEDS: ATORVASTATIN CA 20 MG TABLET (FP) PO SCH (22:53)
[2017-06-21] MEDS ORDERED: amLODIPine BESYLATE 5 MG TABLET (FP) PO ONE (23:21)
[2017-06-22] MEDS: POLYETHYLENE GLYCOL 3350 119 GM BTL PO SCH ×3 (06:37→21:23)
[2017-06-22] MEDS: HEPARIN NA (PORCINE) 5,000 UNITS/ML 1ML VIAL SQ SCH ×3 (06:37→21:22)
[2017-06-22] MEDS: BETHANECHOL CHLORIDE 25 MG TABLET PO SCH ×3 (06:37→21:22)
[2017-06-22] MEDS: INSULIN SLIDING SCALE (NOVOLOG) 1 VIAL SQ SCH ×4 (06:37→21:23)
[2017-06-22] MEDS ORDERED: METOPROLOL SUCCINATE 25 MG TAB.SR.24H (FP) PO ONE (06:46)
--- NOTE | 2017-06-22 06:47 | PN ---
Physical Exam: SUBJECTIVE: Pt became hypertensive this morning and was given Toprol XL 25mg PO now. 10am Toprol XL 75mg PO to be given assuming pulse and BP within parameters. Pt reports no complaints. Denies headache or problems seeing. OBJECTIVE: Vital Signs Period Temp Pulse Resp BP Sys/Iniguez Pulse Ox Last 24 Hr 98.6 F-99.5 F 82-100 17-18 150-198/74-100 97-98 GENERAL: Alert, NAD. Resting comfortably in bed HEENT: Moist mucosa. EOMI, PERRL. No scleral icterus noted LUNGS: CTA bilaterally. Regular rate of breathing. On 2LNC HEART: Tachycardic, regular rhythm. 3/6 systolic murmur heard best at upper R sternal border ABDOMEN: Soft, normoactive bowel sounds, nondistended, nontender. EXTREMITIES: Edema bilaterally; decreased RLE compared to yesterday. No evidence of erythema noted feet. Bilateraly 2+ dorsalis pedis pulses SKIN: No rashes noted. No erythema noted. Stage 2 sacral decubitus ulcer without purulence or erythema noted Laboratory Results - last 24 hr 06/21/17 06/21/17 06/21/17 05:56 05:56 06:28 WBC 9.8 RBC 3.07 L Hgb 8.8 L Hct 26.0 L MCV 84.6 MCH 28.8 MCHC 34.0 RDW 15.7 H Plt Count 200 MPV 8.2 Sodium 139 Potassium 3.9 Chloride 108 H Carbon Dioxide 24 Anion Gap 7 L BUN 14 Creatinine 0.6 Creat Clearance w eGFR > 60 POC Glucometer 104 Random Glucose 100 Calcium 7.7 L Total Bilirubin 0.5 D AST 11 L D ALT 9 L D Alkaline Phosphatase 59 Total Protein 5.8 L Albumin 2.3 L D Vancomycin Pre-Dose 06/21/17 06/21/17 06/21/17 12:19 16:47 17:00 WBC RBC Hgb Hct MCV MCH MCHC RDW Plt Count MPV Sodium Potassium Chloride Carbon Dioxide Anion Gap BUN Creatinine Creat Clearance w eGFR POC Glucometer 198 175 Random Glucose Calcium Total Bilirubin AST ALT Alkaline Phosphatase Total Protein Albumin Vancomycin Pre-Dose 15.493 H* 06/21/17 23:01 WBC RBC Hgb Hct MCV MCH MCHC RDW Plt Count MPV Sodium Potassium Chloride Carbon Dioxide Anion Gap BUN Creatinine Creat Clearance w eGFR POC Glucometer 195 Random Glucose Calcium Total Bilirubin AST ALT Alkaline Phosphatase Total Protein Albumin Vancomycin Pre-Dose Active Medications Generic Name Dose Route Start Last Admin Trade Name Freq PRN Reason Stop Dose Admin Acetaminophen 650 mg 06/19/17 17:19 06/21/17 01:27 Tylenol - PO 650 mg Q4H PRN Administration FEVER OR PAIN Amlodipine Besylate 5 mg 06/21/17 12:00 06/21/17 12:49 Norvasc - PO 5 mg DAILY SEAN Administration Aspirin 81 mg 06/18/17 10:00 06/21/17 10:02 Asa - PO 81 mg DAILY SEAN Administration Atorvastatin Calcium 20 mg 06/18/17 22:00 06/21/17 22:53 Lipitor - PO 20 mg HS ESAN Administration Bethanechol Chloride 25 mg 06/18/17 06:00 06/22/17 06:37 Urecholine - PO 25 mg TID SEAN Administration Calcium Carbonate 1,300 mg 06/18/17 10:00 06/21/17 22:53 Calcium Carbonate - PO 1,300 mg BID SEAN Administration Clopidogrel Bisulfate 75 mg 06/18/17 10:00 06/21/17 10:02 Plavix - PO 75 mg DAILY SEAN Administration Docusate Sodium 100 mg 06/18/17 10:00 06/21/17 22:53 Colace - PO 100 mg BID SEAN Administration Duloxetine HCl 20 mg 06/18/17 10:00 06/21/17 10:04 Cymbalta - PO 20 mg DAILY SEAN Administration Ferrous Sulfate 325 mg 06/18/17 10:00 06/21/17 10:02 Feosol - PO 325 mg DAILY SEAN Administration Guaifenesin 10 ml 06/18/17 04:20 06/20/17 22:53 Robitussin - PO 10 ml Q6H PRN Administration COUGH Heparin Sodium (Porcine) 5,000 unit 06/18/17 06:00 06/22/17 06:37 Heparin - SQ 5,000 unit TID SEAN Administration Vancomycin HCl 1,250 mg/ 250 mls @ 166.667 mls/hr 06/18/17 16:48 06/21/17 17:26 Dextrose IVPB 166.667 mls/hr DAILY@1700 SEAN Administration Protocol Meropenem 1 gm/ Dextrose 100 mls @ 100 mls/hr 06/19/17 18:00 IVPB Q8H-IV SEAN Protocol Insulin Aspart 1 vial 06/18/17 07:00 06/22/17 06:37 Novolog Vial Sliding Scale - SQ Not Given ACHS [facility] Protocol Lactobacillus Acidophilus 1 tab 06/18/17 10:00 06/21/17 10:01 Bacid - PO 1 tab DAILY SEAN Administration Metoprolol Succinate 75 mg 06/21/17 10:00 06/21/17 10:02 Toprol Xl - PO 75 mg DAILY SEAN Administration Polyethylene Glycol 17 gm 06/18/17 06:00 06/22/17 06:37 Miralax (For Daily Use) - PO 17 gm TID SEAN Administration Tamsulosin HCl 0.4 mg 06/18/17 08:30 06/21/17 10:01 Flomax - PO 0.4 mg DAILY@0830 SEAN Administration ASSESSMENT/PLAN: 1) Sepsis 2/2 UTI --Urine cultures with "yeast-like organism" most likely being a contaminate --Repeat blood cultures remain negative --ID on board --D/C antibiotics and will observe off. --Clinically improved; trend WBC. 2) Hypertension --BP recheck before 10am dose still elevated; responded to morning Norvasc to normotensive status. --For tighter blood pressure control will switch to Norvasc 10mg qDaily PO tomorrow AM --Follow BP 3) DM --Continue BGM --ISS coverage 4) CAD --ASA 81mg --Plavix 75mg 5) HLD --Atorvastatin 10mg FEN: Fluids: None indicated currently Electrolytes: None Nutrition: Swallow evaluation: Dysphagia puree diet; possibly thin liquids with low threshold to downgrade to nectar-thickened liquids PPX: DVT: Heparin 5000U SQ TID Deconditioning: Continue OOB to chair with assist. Dispo: Continue current floor management Case discussed with Dr. Henrry More, DO - Internal Medicine PGY-1 Visit type - Emergency Visit Emergency Visit: No - New Patient This patient is new to me today: No - Critical Care Critical Care patient: No
[2017-06-22 07:33] LABS: MCH 28.4 pg (25.7-33.7); MCHC 33.4 g/dl (32.0-36.0); MEAN CELL VOLUME 84.9 fl (80-96); MEAN PLT VOLUME 7.6 fl (7.5-11.1); PLATELET COUNT 238 K/MM3 (134-434); RDW 16.3 % (11.6-15.6); WHITE BLOOD COUNT 7.7 K/mm3 (4.0-10.0)
[2017-06-22] MEDS ORDERED: PT OWN MED DRAWER 7, Y5N ONE ×2 (07:35→09:13)
[2017-06-22 08:13] LABS: ANION GAP 8 (8-16); CALCIUM 8.4 mg/dL (8.5-10.1); CO2 25 mmol/L (21-32); CREATININE 0.6 mg/dL (0.55-1.02); FERRITIN 127.344 ng/ml (6.9-282.5); GLUCOSE,RANDOM 142 mg/dL (74-106)
[2017-06-22] MEDS: CALCIUM CARBONATE 650 MG TABLET PO SCH ×2 (09:16→21:22)
[2017-06-22] MEDS: DOCUSATE SODIUM 100 MG CAPSULE (FP) PO SCH ×2 (09:16→21:22)
[2017-06-22] MEDS: METOPROLOL SUCCINATE 50 MG TAB.SR.24H (FP) PO SCH (09:17)
[2017-06-22] MEDS: amLODIPine BESYLATE 5 MG TABLET (FP) PO SCH (09:17)
[2017-06-22] MEDS: FERROUS SO4 325 MG TABLET (FP) PO SCH (09:17)
[2017-06-22] MEDS: DULoxetine HCL 20 MG CAPSULE.DR (FP) PO SCH (09:18)
[2017-06-22] MEDS: LACTOBACILLUS ACIDOPHILUS 1 EACH TAB (FP) PO SCH (09:18)
[2017-06-22] MEDS: TAMSULOSIN HCL 0.4 MG CAP.ER.24H (FP) PO SCH (09:18)
[2017-06-22] MEDS: ASPIRIN 81 MG CHEWABLE TABLETS PO SCH (09:18)
[2017-06-22] MEDS: CLOPIDOGREL BISULFATE 75 MG TABLET (FP) PO SCH (09:18)
--- NOTE | 2017-06-22 11:22 | PN ---
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, [employer] - Note 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: Selected Entries 06/20/17 06/20/17 06/20/17 01:33 06:21 08:02 Breakfast Lunch Supper Temperature 99.5 F 99.3 F 99.3 F 06/20/17 06/20/17 06/20/17 09:56 14:49 19:00 Breakfast Lunch Supper Temperature 99.9 F H 98.9 F 99.2 F 06/20/17 06/21/17 06/21/17 22:00 06:00 09:45 Breakfast Lunch Supper Temperature 99.2 F 99.1 F 98.6 F 06/21/17 06/21/17 06/21/17 10:43 14:34 19:00 Breakfast 100% Lunch 100% Supper 100% Temperature 99.4 F 98.9 F 06/21/17 06/22/17 06/22/17 23:13 06:00 09:00 Breakfast Lunch Supper 100% Temperature 98.9 F 99.5 F 99.2 F Laboratory Tests 06/22/17 06:15 WBC 7.7 Tolerating diet with good appetite.No signs of aspiration reported or observed.
--- NOTE | 2017-06-22 16:11 | PN ---
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, Physician History of Present Illness: stable no issues echo done no fevers - Current Medication List Current Medications: Active Medications Acetaminophen (Tylenol -) 650 mg PO Q4H PRN PRN Reason: FEVER OR PAIN Last Admin: 06/21/17 01:27 Dose: 650 mg Amlodipine Besylate (Norvasc -) 5 mg PO DAILY [facility] Last Admin: 06/22/17 09:17 Dose: 5 mg Aspirin (Asa -) 81 mg PO DAILY [facility] Last Admin: 06/22/17 09:18 Dose: 81 mg Atorvastatin Calcium (Lipitor -) 20 mg PO HS [facility] Last Admin: 06/21/17 22:53 Dose: 20 mg Bethanechol Chloride (Urecholine -) 25 mg PO TID [facility] Last Admin: 06/22/17 13:50 Dose: 25 mg Calcium Carbonate (Calcium Carbonate -) 1,300 mg PO BID [facility] Last Admin: 06/22/17 09:16 Dose: 1,300 mg Clopidogrel Bisulfate (Plavix -) 75 mg PO DAILY [facility] Last Admin: 06/22/17 09:18 Dose: 75 mg Docusate Sodium (Colace -) 100 mg PO BID [facility] Last Admin: 06/22/17 09:16 Dose: 100 mg Duloxetine HCl (Cymbalta -) 20 mg PO DAILY [facility] Last Admin: 06/22/17 09:18 Dose: 20 mg Ferrous Sulfate (Feosol -) 325 mg PO DAILY [facility] Last Admin: 06/22/17 09:17 Dose: 325 mg Guaifenesin (Robitussin -) 10 ml PO Q6H PRN PRN Reason: COUGH Last Admin: 06/20/17 22:53 Dose: 10 ml Heparin Sodium (Porcine) (Heparin -) 5,000 unit SQ TID [facility] Last Admin: 06/22/17 13:50 Dose: 5,000 unit Vancomycin HCl 1,250 mg/ (Dextrose) 250 mls @ 166.667 mls/hr IVPB DAILY@1700 [facility] PRN Reason: Protocol Last Admin: 06/21/17 17:26 Dose: 166.667 mls/hr Insulin Aspart (Novolog Vial Sliding Scale -) 1 vial SQ ACHS [facility] PRN Reason: Protocol Last Admin: 06/22/17 11:27 Dose: 2 units Lactobacillus Acidophilus (Bacid -) 1 tab PO DAILY [facility] Last Admin: 06/22/17 09:18 Dose: 1 tab Metoprolol Succinate (Toprol Xl -) 75 mg PO DAILY [facility] Last Admin: 06/22/17 09:17 Dose: 75 mg Polyethylene Glycol (Miralax (For Daily Use) -) 17 gm PO TID [facility] Last Admin: 06/22/17 13:49 Dose: Not Given Tamsulosin HCl (Flomax -) 0.8 mg PO DAILY@0830 [facility] Last Admin: 06/22/17 09:18 Dose: 0.8 mg - Objective Vital Signs: Vital Signs Temperature 98.7 F 06/22/17 14:38 Pulse Rate 86 06/22/17 14:38 Respiratory Rate 20 06/22/17 14:38 Blood Pressure 150/79 06/22/17 14:38 O2 Sat by Pulse Oximetry (%) 98 06/21/17 21:00 Constitutional: Yes: No Distress, Calm Eyes: Yes: Conjunctiva Clear Cardiovascular: Yes: Regular Rate and Rhythm, Murmur Respiratory: Yes: Regular Gastrointestinal: Yes: Normal Bowel Sounds, Soft Musculoskeletal: Yes: Other Extremities: Yes: Other Neurological: Yes: Alert, Other Psychiatric: Yes: Alert, Other Labs: CBC, BMP 06/22/17 06:15 06/22/17 06:15 Assessment/Plan sepsis cough dm cad gm positive bacteremia plan all cx results noted will stop abx monitor post abx rest as per primary team
--- NOTE | 2017-06-22 17:19 | PN ---
Teaching Attending Note Name of Resident: London More ATTENDING PHYSICIAN STATEMENT I saw and evaluated the patient. I reviewed the resident's note and discussed the case with the resident. I agree with the resident's findings and plan as documented. SUBJECTIVE: Patient with no complaints. She was resting comfortably. OBJECTIVE: Last Vital Signs Temp Pulse Resp BP Pulse Ox 98.7 F 86 20 150/79 97 06/22/17 14:38 06/22/17 14:38 06/22/17 14:38 06/22/17 14:38 06/22/17 09:00 General NAD neck -no jvd CV S1 S2 RRR +murmur Lungs CTA B/L no wheezing/rales/rhonchi abdomen soft NT/ND, no masses appreciated Extremities- no edema, no erythema neuro -no focal deficits, answers questions, follows commands Abnormal Lab Results 06/21/17 06/22/17 06/22/17 17:00 06:15 06:15 RBC 3.47 L Hgb 9.9 L D Hct 29.5 L RDW 16.3 H Sodium 135 L Random Glucose 142 H D Calcium 8.4 L Vancomycin Pre-Dose 15.493 H* ASSESSMENT AND PLAN: 87 yo F with PMH HTN, CAD , CVA , dementia, dyslipidemia, Dm and other medical problems including recent hospitalization for L great toe infection , who presented with decreased responsiveness and dry cough. She was found to have sepsis 2/2 UTI which is now improved. # Sepsis 2/2 UTI -much improved. ID recs appreciated. +blood culture likely contamination. Echo of heart - negative for vegetations; -d/c vancomycin and zosyn -observe off antibiotics -reculture if febrile #HTN - continue home medications # anemia- stable #CAD-on asa/plavix/statin # DM- hold oral agents. cont iss # DVT ppx- hep sq
[2017-06-22] MEDS: ATORVASTATIN CA 20 MG TABLET (FP) PO SCH (21:22)
[2017-06-23] MEDS: POLYETHYLENE GLYCOL 3350 119 GM BTL PO SCH ×3 (05:49→22:38)
[2017-06-23] MEDS: BETHANECHOL CHLORIDE 25 MG TABLET PO SCH ×3 (05:49→22:29)
[2017-06-23] MEDS: HEPARIN NA (PORCINE) 5,000 UNITS/ML 1ML VIAL SQ SCH ×3 (05:49→22:29)
[2017-06-23 06:07] LABS: SERUM IRON 18 ug/dL (27-139); TOTAL IRON BINDING CAPACITY 221 ug/dL (250-450); TRANSFERRIN 185 mg/dL (200-370); UIBC 203 ug/dL (118-369)
[2017-06-23] MEDS: INSULIN SLIDING SCALE (NOVOLOG) 1 VIAL SQ SCH ×4 (06:10→22:40)
[2017-06-23 07:42] LABS: MCH 29.4 pg (25.7-33.7); MCHC 34.8 g/dl (32.0-36.0); MEAN CELL VOLUME 84.3 fl (80-96); MEAN PLT VOLUME 8.1 fl (7.5-11.1); PLATELET COUNT 273 K/MM3 (134-434); RDW 15.7 % (11.6-15.6); WHITE BLOOD COUNT 7.3 K/mm3 (4.0-10.0)
[2017-06-23 08:08] LABS: ANION GAP 8 (8-16); CALCIUM 8.7 mg/dL (8.5-10.1); CO2 26 mmol/L (21-32); CREATININE 0.6 mg/dL (0.55-1.02); GLUCOSE,RANDOM 143 mg/dL (74-106)
[2017-06-23] MEDS: TAMSULOSIN HCL 0.4 MG CAP.ER.24H (FP) PO SCH (08:27)
[2017-06-23] MEDS ORDERED: PT OWN MED DRAWER 7, Y5N ONE (10:12)
[2017-06-23] MEDS: METOPROLOL SUCCINATE 50 MG TAB.SR.24H (FP) PO SCH (10:24)
[2017-06-23] MEDS: FERROUS SO4 325 MG TABLET (FP) PO SCH (10:24)
[2017-06-23] MEDS: LACTOBACILLUS ACIDOPHILUS 1 EACH TAB (FP) PO SCH (10:24)
[2017-06-23] MEDS: CALCIUM CARBONATE 650 MG TABLET PO SCH ×2 (10:25→22:29)
[2017-06-23] MEDS: CLOPIDOGREL BISULFATE 75 MG TABLET (FP) PO SCH (10:26)
[2017-06-23] MEDS: amLODIPine BESYLATE 5 MG TABLET (FP) PO SCH (10:26)
[2017-06-23] MEDS: DULoxetine HCL 20 MG CAPSULE.DR (FP) PO SCH (10:26)
[2017-06-23] MEDS: ASPIRIN 81 MG CHEWABLE TABLETS PO SCH (10:26)
[2017-06-23] MEDS: DOCUSATE SODIUM 100 MG CAPSULE (FP) PO SCH ×2 (10:39→22:29)
--- NOTE | 2017-06-23 11:06 | PN ---
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, [employer] - Note 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: Selected Entries 06/22/17 06/22/17 06/22/17 06:00 09:00 14:38 Temperature 99.5 F 99.2 F 98.7 F 06/22/17 06/22/17 06/23/17 18:30 20:53 06:00 Temperature 97.8 F 97.8 F 98.4 F Laboratory Tests 06/22/17 06/23/17 06:15 06:35 WBC 7.7 7.3 Pt reported by nursing to have cough but not coughing meal time. Pt reassessed. Wheeze/cough noted. No cough with delayed but brisk swallow with overt tolerance of thin water via straw and meds in applesauce. WBC/temp wnl. Etiology of cough? Continue puree/thin liquid unless infiltrate identified on CXR. If so, nectar thick liquid.
--- NOTE | 2017-06-23 13:06 | DS ---
Physical Exam: SUBJECTIVE: Patient seen and examined resting comfortably in bed. Pt voiced no concerns. No acute events overnight including being afebrile for over 24hrs. OBJECTIVE: Vital Signs Period Temp Pulse Resp BP Sys/Iniguez Pulse Ox Last 24 Hr 97.8 F-98.7 F 80-95 18-20 111-164/56-84 97 PHYSICAL EXAM GENERAL: Alert, NAD. Resting comfortably in bed. Verbal by baseline HEENT: Moist mucosa. EOMI, PERRL. LUNGS: CTA bilaterally no wheezes rhonchi or rales noted. Regular rate of breathing. HEART: RRR. 3/6 systolic murmur heard best at upper R sternal border ABDOMEN: Soft, nontender, nondistended, normoactive bowel sounds EXTREMITIES: RLE edema. LLE no edema. No erythema noted. 2+ pedal pulses intact bilaterally SKIN: No rashes noted. No erythema noted. Stage 2 sacral decubitus ulcer without purulence or erythema noted LABS Laboratory Results - last 24 hr 06/22/17 06/22/17 06/22/17 06:15 16:47 20:48 WBC RBC Hgb Hct MCV MCH MCHC RDW Plt Count MPV Sodium Potassium Chloride Carbon Dioxide Anion Gap BUN Creatinine POC Glucometer 158 229 Random Glucose Calcium Iron 18 L TIBC 221 L Iron Saturation 8 L Transferrin 185 L 06/23/17 06/23/17 06/23/17 05:36 06:35 06:35 WBC 7.3 RBC 3.44 L Hgb 10.1 L Hct 29.0 L MCV 84.3 MCH 29.4 MCHC 34.8 RDW 15.7 H Plt Count 273 MPV 8.1 Sodium 137 Potassium 4.5 Chloride 103 Carbon Dioxide 26 Anion Gap 8 BUN 11 Creatinine 0.6 POC Glucometer 135 Random Glucose 143 H Calcium 8.7 Iron TIBC Iron Saturation Transferrin 06/23/17 12:17 WBC RBC Hgb Hct MCV MCH MCHC RDW Plt Count MPV Sodium Potassium Chloride Carbon Dioxide Anion Gap BUN Creatinine POC Glucometer 257 Random Glucose Calcium Iron TIBC Iron Saturation Transferrin HOSPITAL COURSE: Date of Admission:06/18/17 Date of Discharge: 06/23/17 Pt was admitted on 06/18/17 due to sudden onset of SOB, fever, and chills and was found to meet sepsis criteria secondary to suspected UTI. CXR was performed to rule out infiltrate and pt was initially put on Vancomycin and Zosyn with Infectious Disease consulted. Mosqueda was placed in patient due to urinary retention and urology was consulted due to retention and bladder pathology. Hospital course was complicated by hypotensive episodes during the night of into 06/19 which resolved with aggressive fluid rehydration and intermittent fevers. Due to 3/6 systolic murmur on the R upper sternal border patient received an echocardiogram which was unequivocal. Pt began to recover become hypertensive which is when her home Norvasc dose was increased to 10mg qdaily PO. Pt already has 24hour services at home and will be discharged to return home with follow-up instructions. Minutes to complete discharge: 30 Discharge Summary Reason For Visit: URINARY TRACT INFECTION/SEVERE SEPSIS Current Active Problems UTI (urinary tract infection) (Acute) Chronic constipation (Chronic) Condition: Stable - Instructions Diet, Activity, Other Instructions: You were hospitalized for an infection in your bladder You received enough antibiotics in the hospital and do not need any more at home. Please follow up with Dr. Gaspar as an outpatient for your bladder problems. Please follow-up with your general medical doctor. If symptoms return please come back to the hospital or nearest ER for evaluation. Medication Changes: Tamsulosin was INCREASED to 0.8mg once daily by mouth; a prescription has been sent to your pharmacy. Norvasc (aka Amlodipine) has been INCREASED to 10mg once daily by mouth; a prescription has been sent to your pharmacy and is waiting to be picked up Referrals: Lionel Gaspar MD., MD [Staff Physician] - 1 Week Disposition: VNS/HOME HEALTH CARE - Home Medications Comprehensive Discharge Medication List: Ambulatory Orders Clopidogrel Bisulfate [Plavix -] 75 mg PO DAILY 12/23/15 Duloxetine HCl 20 mg PO DAILY 12/23/15 Ferrous Sulfate 325 mg PO DAILY 12/23/15 Isosorbide Mononitrate [Imdur -] 90 mg PO DAILY 12/23/15 Metformin HCl 850 mg PO BID 12/23/15 Polyethylene Glycol 3350 [Miralax 119 gm Btl -] 17 gm PO TID 12/23/15 Docusate Sodium [Colace -] 100 mg PO BID #40 capsule 04/14/16 Atorvastatin Ca [Lipitor] 20 mg PO HS #30 tablet 08/17/16 Amlodipine Besylate [Norvasc -] 10 mg PO DAILY #30 tablet 06/13/17 Aspirin [ASA -] 81 mg PO DAILY #0 tab.chew 06/13/17 Bethanechol Chloride [Urecholine] 25 mg PO TID #90 tablet 06/13/17 Calcium Carbonate - 1,300 mg PO BID #30 tablet 06/13/17 Lactobacillus Acidophilus [Bacid -] 1 tab PO DAILY tab 06/13/17 Metoprolol Succinate [Toprol XL -] 75 mg PO BID #180 tab.sr.24h 06/13/17 Acetaminophen [Tylenol] 650 mg PO QID PRN 06/17/17 Tamsulosin HCl [Flomax -] 0.8 mg PO DAILY@0830 #30 cap 06/23/17 This patient is new to me today: No Emergency Visit: No Critical Care patient: No - Discharge Referral Referred to [facility] No
--- NOTE | 2017-06-23 14:39 | PN ---
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, Physician History of Present Illness: stable no issues echo done no fevers - Current Medication List Current Medications: Active Medications Acetaminophen (Tylenol -) 650 mg PO Q4H PRN PRN Reason: FEVER OR PAIN Last Admin: 06/21/17 01:27 Dose: 650 mg Amlodipine Besylate (Norvasc -) 10 mg PO DAILY [facility] Last Admin: 06/23/17 10:26 Dose: 10 mg Aspirin (Asa -) 81 mg PO DAILY [facility] Last Admin: 06/23/17 10:26 Dose: 81 mg Atorvastatin Calcium (Lipitor -) 20 mg PO HS [facility] Last Admin: 06/22/17 21:22 Dose: 20 mg Bethanechol Chloride (Urecholine -) 25 mg PO TID [facility] Last Admin: 06/23/17 05:49 Dose: 25 mg Calcium Carbonate (Calcium Carbonate -) 1,300 mg PO BID [facility] Last Admin: 06/23/17 10:25 Dose: 1,300 mg Clopidogrel Bisulfate (Plavix -) 75 mg PO DAILY [facility] Last Admin: 06/23/17 10:26 Dose: 75 mg Docusate Sodium (Colace -) 100 mg PO BID [facility] Last Admin: 06/23/17 10:39 Dose: 100 mg Duloxetine HCl (Cymbalta -) 20 mg PO DAILY [facility] Last Admin: 06/23/17 10:26 Dose: 20 mg Ferrous Sulfate (Feosol -) 325 mg PO DAILY [facility] Last Admin: 06/23/17 10:24 Dose: 325 mg Guaifenesin (Robitussin -) 10 ml PO Q6H PRN PRN Reason: COUGH Last Admin: 06/20/17 22:53 Dose: 10 ml Heparin Sodium (Porcine) (Heparin -) 5,000 unit SQ TID [facility] Last Admin: 06/23/17 05:49 Dose: 5,000 unit Insulin Aspart (Novolog Vial Sliding Scale -) 1 vial SQ ACHS [facility] PRN Reason: Protocol Last Admin: 06/23/17 12:19 Dose: 6 units Lactobacillus Acidophilus (Bacid -) 1 tab PO DAILY [facility] Last Admin: 06/23/17 10:24 Dose: 1 tab Metoprolol Succinate (Toprol Xl -) 75 mg PO DAILY [facility] Last Admin: 06/23/17 10:24 Dose: 75 mg Polyethylene Glycol (Miralax (For Daily Use) -) 17 gm PO TID [facility] Last Admin: 10/27/17 05:49 Dose: 17 gm Tamsulosin HCl (Flomax -) 0.8 mg PO DAILY@0830 [facility] Last Admin: 06/23/17 08:27 Dose: 0.8 mg - Objective Vital Signs: Vital Signs Temperature 98.4 F 06/23/17 06:00 Pulse Rate 90 06/23/17 10:07 Respiratory Rate 20 06/23/17 10:07 Blood Pressure 139/58 06/23/17 10:07 O2 Sat by Pulse Oximetry (%) 97 06/23/17 10:00 Constitutional: Yes: No Distress, Calm Cardiovascular: Yes: Regular Rate and Rhythm, Murmur Respiratory: Yes: Regular, CTA Bilaterally Gastrointestinal: Yes: Normal Bowel Sounds, Soft Musculoskeletal: Yes: WNL Extremities: Yes: WNL Neurological: Yes: Alert, Other Psychiatric: Yes: Other Labs: CBC, BMP 06/23/17 06:35 06/23/17 06:35 Assessment/Plan sepsis cough dm cad gm positive bacteremia plan remaining stable will continue to monitor rest as per primary
--- NOTE | 2017-06-23 14:56 | PN ---
Teaching Attending Note Name of Resident: London More ATTENDING PHYSICIAN STATEMENT I saw and evaluated the patient. I reviewed the resident's note and discussed the case with the resident. I agree with the resident's findings and plan as documented. SUBJECTIVE: no diarrhea, no fevers, bedbound OBJECTIVE: Last Vital Signs Temp Pulse Resp BP Pulse Ox 98.4 F 90 20 139/58 97 06/23/17 06:00 06/23/17 10:07 06/23/17 10:07 06/23/17 10:07 06/23/17 10:00 general- nad, resting comfortably heent -at, nc neck -supple cv-s1+s2+ RRR chest- cta b/l abdomen- soft, nontender, no masses skin - no rashes , stage 2 decubitus ulcer - chronic ASSESSMENT AND PLAN: 87 yo F with PMH HTN, CAD , CVA , dementia, dyslipidemia, Dm and other medical problems including recent hospitalization for L great toe infection , who presented with decreased responsiveness and dry cough. She was found to have sepsis 2/2 UTI which is now improved. # Sepsis 2/2 UTI -resolved. echo of heart - negative for vegetations; 06/17 gram pos bacteremia probably a contaminant. s/p 7 days abx. -off antibiotics #Urinary retention - may be leading to frequent UTIs -urology clinic as an outpatient -flomax #HTN - continue home medications # anemia- stable #CAD-on asa/plavix/statin # DM- insulin sliding scale # DVT ppx- hep sq -discharge to nursing facility today, patient is at baseline state of health
[2017-06-23] MEDS ORDERED: INSULIN (NOVOLOG) ASPART 100 UNITS/ML 10ML VIAL ONE ×2 (17:25→18:03)
[2017-06-23] MEDS: guaiFENesin 200 MG/10 ML 10 ML UNIT-DOSE CUPS PO PRN (22:28)
[2017-06-23] MEDS: ATORVASTATIN CA 20 MG TABLET (FP) PO SCH (22:29)
[2017-06-24] MEDS: HEPARIN NA (PORCINE) 5,000 UNITS/ML 1ML VIAL SQ SCH ×3 (06:52→21:26)
[2017-06-24] MEDS: BETHANECHOL CHLORIDE 25 MG TABLET PO SCH ×3 (06:52→21:26)
[2017-06-24] MEDS: POLYETHYLENE GLYCOL 3350 119 GM BTL PO SCH ×3 (06:52→21:28)
[2017-06-24] MEDS: INSULIN SLIDING SCALE (NOVOLOG) 1 VIAL SQ SCH ×4 (07:10→21:26)
[2017-06-24] MEDS ORDERED: PT OWN MED DRAWER 7, Y5N ONE (10:00)
[2017-06-24] MEDS: TAMSULOSIN HCL 0.4 MG CAP.ER.24H (FP) PO SCH (10:08)
[2017-06-24] MEDS: LACTOBACILLUS ACIDOPHILUS 1 EACH TAB (FP) PO SCH (10:08)
[2017-06-24] MEDS: ASPIRIN 81 MG CHEWABLE TABLETS PO SCH (10:08)
[2017-06-24] MEDS: CLOPIDOGREL BISULFATE 75 MG TABLET (FP) PO SCH (10:09)
[2017-06-24] MEDS: DOCUSATE SODIUM 100 MG CAPSULE (FP) PO SCH ×2 (10:09→21:26)
[2017-06-24] MEDS: CALCIUM CARBONATE 650 MG TABLET PO SCH ×2 (10:09→21:26)
[2017-06-24] MEDS: DULoxetine HCL 20 MG CAPSULE.DR (FP) PO SCH (10:09)
[2017-06-24] MEDS: FERROUS SO4 325 MG TABLET (FP) PO SCH (10:09)
[2017-06-24] MEDS: amLODIPine BESYLATE 5 MG TABLET (FP) PO SCH (10:09)
[2017-06-24] MEDS: METOPROLOL SUCCINATE 50 MG TAB.SR.24H (FP) PO SCH (10:10)
--- NOTE | 2017-06-24 10:26 | PN ---
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, Physician History of Present Illness: Patient remains stable Low grade fevers resolved No distress - Current Medication List Current Medications: Active Medications Acetaminophen (Tylenol -) 650 mg PO Q4H PRN PRN Reason: FEVER OR PAIN Last Admin: 06/21/17 01:27 Dose: 650 mg Amlodipine Besylate (Norvasc -) 10 mg PO DAILY [facility] Last Admin: 06/24/17 10:09 Dose: 10 mg Aspirin (Asa -) 81 mg PO DAILY [facility] Last Admin: 06/24/17 10:08 Dose: 81 mg Atorvastatin Calcium (Lipitor -) 20 mg PO HS [facility] Last Admin: 06/23/17 22:29 Dose: 20 mg Bethanechol Chloride (Urecholine -) 25 mg PO TID [facility] Last Admin: 06/24/17 06:52 Dose: 25 mg Calcium Carbonate (Calcium Carbonate -) 1,300 mg PO BID [facility] Last Admin: 06/24/17 10:09 Dose: 1,300 mg Clopidogrel Bisulfate (Plavix -) 75 mg PO DAILY [facility] Last Admin: 06/24/17 10:09 Dose: 75 mg Docusate Sodium (Colace -) 100 mg PO BID [facility] Last Admin: 06/24/17 10:09 Dose: 100 mg Duloxetine HCl (Cymbalta -) 20 mg PO DAILY [facility] Last Admin: 06/24/17 10:09 Dose: 20 mg Ferrous Sulfate (Feosol -) 325 mg PO DAILY [facility] Last Admin: 06/24/17 10:09 Dose: 325 mg Guaifenesin (Robitussin -) 10 ml PO Q6H PRN PRN Reason: COUGH Last Admin: 06/23/17 22:28 Dose: 10 ml Heparin Sodium (Porcine) (Heparin -) 5,000 unit SQ TID [facility] Last Admin: 06/24/17 06:52 Dose: 5,000 unit Insulin Aspart (Novolog Vial Sliding Scale -) 1 vial SQ ACHS [facility] PRN Reason: Protocol Last Admin: 06/24/17 07:10 Dose: Not Given Lactobacillus Acidophilus (Bacid -) 1 tab PO DAILY [facility] Last Admin: 06/24/17 10:08 Dose: 1 tab Metoprolol Succinate (Toprol Xl -) 75 mg PO DAILY [facility] Last Admin: 06/24/17 10:10 Dose: Not Given Polyethylene Glycol (Miralax (For Daily Use) -) 17 gm PO TID [facility] Last Admin: 06/24/17 06:52 Dose: 17 gm Tamsulosin HCl (Flomax -) 0.8 mg PO DAILY@0830 [facility] Last Admin: 06/24/17 10:08 Dose: 0.8 mg - Objective Vital Signs: Vital Signs Temperature 99.2 F 06/24/17 06:25 Pulse Rate 83 06/23/17 22:00 Respiratory Rate 18 06/23/17 22:00 Blood Pressure 150/69 06/23/17 22:00 O2 Sat by Pulse Oximetry (%) 95 06/23/17 21:00 Constitutional: Yes: No Distress HENT: Yes: WNL Neck: Yes: Supple Cardiovascular: Yes: Regular Rate and Rhythm Respiratory: Yes: Regular Gastrointestinal: Yes: Normal Bowel Sounds, Soft Labs: CBC, BMP 06/23/17 06:35 06/23/17 06:35 Problem List - Problems (1) Sepsis Code(s): A41.9 - SEPSIS, UNSPECIFIED ORGANISM Qualifiers: Sepsis type: sepsis due to unspecified organism Qualified Code(s): A41.9 - Sepsis, unspecified organism; A41.9 - Sepsis, unspecified organism; A41.9 - Sepsis, unspecified organism (2) CAD (coronary artery disease) Code(s): I25.10 - ATHSCL HEART DISEASE OF [place] CORONARY ARTERY W/O ANG PCTRS Qualifiers: Coronary Disease-Associated Artery/Lesion type: bypass graft [place] vs. transplanted heart: [place] heart Associated angina: with stable angina Qualified Code(s): I25.709 - Atherosclerosis of coronary artery bypass graft(s), unspecified, with unspecified angina pectoris; I25.709 - Atherosclerosis of coronary artery bypass graft(s), unspecified, with unspecified angina pectoris; I25.709 - Atherosclerosis of coronary artery bypass graft(s), unspecified, with unspecified angina pectoris; I25.709 - Atherosclerosis of coronary artery bypass graft(s), unspecified, with unspecified angina pectoris (3) Diabetes type 2, uncontrolled Code(s): E11.65 - TYPE 2 DIABETES MELLITUS WITH HYPERGLYCEMIA Qualifiers: Diabetes mellitus complication status: with hyperglycemia Diabetes mellitus m[facility]p insulin use: unspecified mcfp insulin use status Qualified Code(s): E11.65 - Type 2 diabetes mellitus with hyperglycemia; E11.65 - Type 2 diabetes mellitus with hyperglycemia; E11.65 - Type 2 diabetes mellitus with hyperglycemia; E11.65 - Type 2 diabetes mellitus with hyperglycemia Assessment/Plan Blood cultures negative Fever resolved Pt appears stable For discharge today
[2017-06-24] MEDS ORDERED: INSULIN (NOVOLOG) ASPART 100 UNITS/ML 10ML VIAL ONE ×2 (11:35→20:48)
--- NOTE | 2017-06-24 13:05 | PN ---
Physical Exam: SUBJECTIVE: Patient seen and examined Patient is feeling better. No acute distress. OBJECTIVE: Vital Signs Temperature 98.8 F 06/24/17 09:30 Pulse Rate 85 06/24/17 09:30 Respiratory Rate 18 06/24/17 09:30 Blood Pressure 139/58 06/24/17 09:30 O2 Sat by Pulse Oximetry (%) 95 06/23/17 21:00 GENERAL: Alert, NAD. Resting comfortably in bed. Verbal by baseline HEENT: Moist mucosa. EOMI, PERRL. LUNGS: CTA bilaterally no wheezes rhonchi or rales noted. HEART: RRR. JAIME 3/6 systolic best heard at upper R sternal border ABDOMEN: Soft, nontender, nondistended, normoactive bowel sounds EXTREMITIES: RLE edema. LLE no edema. No erythema noted. 2+ pedal pulses intact bilaterally SKIN: No rashes noted. No erythema noted. Stage 2 sacral decubitus ulcer without purulence or erythema noted CBCD WBC 7.3 K/mm3 (4.0-10.0) 06/23/17 06:35 RBC 3.44 M/mm3 (3.60-5.2) L 06/23/17 06:35 Hgb 10.1 GM/dL (10.7-15.3) L 06/23/17 06:35 Hct 29.0 % (32.4-45.2) L 06/23/17 06:35 MCV 84.3 fl (80-96) 06/23/17 06:35 MCHC 34.8 g/dl (32.0-36.0) 06/23/17 06:35 RDW 15.7 % (11.6-15.6) H 06/23/17 06:35 Plt Count 273 K/MM3 (134-434) 06/23/17 06:35 MPV 8.1 fl (7.5-11.1) 06/23/17 06:35 CMP Sodium 137 mmol/L (136-145) 06/23/17 06:35 Potassium 4.5 mmol/L (3.5-5.1) 06/23/17 06:35 Chloride 103 mmol/L (98-107) 06/23/17 06:35 Carbon Dioxide 26 mmol/L (21-32) 06/23/17 06:35 Anion Gap 8 (8-16) 06/23/17 06:35 BUN 11 mg/dL (7-18) 06/23/17 06:35 Creatinine 0.6 mg/dL (0.55-1.02) 06/23/17 06:35 Creat Clearance w eGFR > 60 (>60) 06/21/17 05:56 Random Glucose 143 mg/dL (74-106) H 06/23/17 06:35 Calcium 8.7 mg/dL (8.5-10.1) 06/23/17 06:35 Total Bilirubin 0.5 mg/dL (0.2-1.0) D 06/21/17 05:56 AST 11 U/L (15-37) L D 06/21/17 05:56 ALT 9 U/L (12-78) L D 06/21/17 05:56 Alkaline Phosphatase 59 U/L (45-117) 06/21/17 05:56 Total Protein 5.8 g/dl (6.4-8.2) L 06/21/17 05:56 Albumin 2.3 g/dl (3.4-5.0) L D 06/21/17 05:56 CARDIAC ENZYMES Creatine Kinase 28 IU/L (26-192) 06/18/17 21:00 Troponin I < 0.02 ng/ml (0.00-0.05) 06/18/17 21:00 Laboratory Results - last 24 hr 06/23/17 06/23/17 06/24/17 17:19 22:39 06:55 POC Glucometer 159 144 145 06/24/17 11:43 POC Glucometer 206 Active Medications Generic Name Dose Route Start Last Admin Trade Name Freq PRN Reason Stop Dose Admin Acetaminophen 650 mg 06/19/17 17:19 06/21/17 01:27 Tylenol - PO 650 mg Q4H PRN Administration FEVER OR PAIN Amlodipine Besylate 10 mg 06/22/17 19:37 06/24/17 10:09 Norvasc - PO 10 mg DAILY [facility] Administration Aspirin 81 mg 06/18/17 10:00 06/24/17 10:08 Asa - PO 81 mg DAILY [facility] Administration Atorvastatin Calcium 20 mg 06/18/17 22:00 06/23/17 22:29 Lipitor - PO 20 mg HS [facility] Administration Bethanechol Chloride 25 mg 06/18/17 06:00 06/24/17 06:52 Urecholine - PO 25 mg TID [facility] Administration Calcium Carbonate 1,300 mg 06/18/17 10:00 06/24/17 10:09 Calcium Carbonate - PO 1,300 mg BID [facility] Administration Clopidogrel Bisulfate 75 mg 06/18/17 10:00 06/24/17 10:09 Plavix - PO 75 mg DAILY [facility] Administration Docusate Sodium 100 mg 06/18/17 10:00 06/24/17 10:09 Colace - PO 100 mg BID [facility] Administration Duloxetine HCl 20 mg 06/18/17 10:00 06/24/17 10:09 Cymbalta - PO 20 mg DAILY [facility] Administration Ferrous Sulfate 325 mg 06/18/17 10:00 06/24/17 10:09 Feosol - PO 325 mg DAILY [facility] Administration Guaifenesin 10 ml 06/18/17 04:20 06/23/17 22:28 Robitussin - PO 10 ml Q6H PRN Administration COUGH Heparin Sodium (Porcine) 5,000 unit 06/18/17 06:00 06/24/17 06:52 Heparin - SQ 5,000 unit TID [facility] Administration Insulin Aspart 1 vial 06/18/17 07:00 06/24/17 12:51 Novolog Vial Sliding Scale - SQ 4 units ACHS [facility] Administration Protocol Lactobacillus Acidophilus 1 tab 06/18/17 10:00 06/24/17 10:08 Bacid - PO 1 tab DAILY [facility] Administration Metoprolol Succinate 75 mg 06/21/17 10:00 06/24/17 10:10 Toprol Xl - PO Not Given DAILY [facility] Polyethylene Glycol 17 gm 06/18/17 06:00 06/24/17 06:52 Miralax (For Daily Use) - PO 17 gm TID [facility] Administration Tamsulosin HCl 0.8 mg 06/22/17 09:00 06/24/17 10:08 Flomax - PO 0.8 mg DAILY@0830 [facility] Administration Home Medications Medication Instructions Recorded Clopidogrel Bisulfate [Plavix -] 75 mg PO DAILY 12/23/15 Duloxetine HCl 20 mg PO DAILY 12/23/15 Ferrous Sulfate 325 mg PO DAILY 12/23/15 Isosorbide Mononitrate [Imdur -] 90 mg PO DAILY 12/23/15 Metformin HCl 850 mg PO BID 12/23/15 Polyethylene Glycol 3350 [Miralax 17 gm PO TID 12/23/15 119 gm Btl -] Docusate Sodium [Colace -] 100 mg PO BID #40 capsule 04/14/16 Atorvastatin Ca [Lipitor] 20 mg PO HS #30 tablet 08/17/16 Amlodipine Besylate [Norvasc -] 10 mg PO DAILY #30 tablet 06/13/17 Aspirin [ASA -] 81 mg PO DAILY #0 tab.chew 06/13/17 Bethanechol Chloride [Urecholine] 25 mg PO TID #90 tablet 06/13/17 Calcium Carbonate - 1,300 mg PO BID #30 tablet 06/13/17 Lactobacillus Acidophilus [Bacid -] 1 tab PO DAILY tab 06/13/17 Metoprolol Succinate [Toprol XL -] 75 mg PO BID #180 tab.sr.24h 06/13/17 Acetaminophen [Tylenol] 650 mg PO QID PRN 06/17/17 Tamsulosin HCl [Flomax -] 0.8 mg PO DAILY@0830 #30 cap 06/23/17 Echo of heart - negative for vegetations ASSESSMENT/PLAN: 87 yo F with PMH HTN, CAD , CVA , dementia, dyslipidemia, Dm and other medical problems including recent hospitalization for L great toe infection , who presented with decreased responsiveness and dry cough. She was found to have sepsis 2/2 UTI which is now improved. #s/p Sepsis due to UTI -resolved. 06/17 G+ bacteremia probably a contaminant. s /p 7 days of abx. off antibiotics now. #Urinary retention - may be leading to frequent UTIs urology clinic as an outpatient , on flomax 0.8mcg daily #HTN continue home medications , Imdur was on hold bc of hypotension # anemia- stable #CAD-on asa/plavix/statin, Imdur was on hold since patient was found hypotensive. # DM- insulin sliding scale # DVT ppx- hep sq -discharge home, the aid will be available on Monday , arrangements will be made by social and political studies professor accordingly. Visit type - Emergency Visit Emergency Visit: Yes ED Registration Date: 06/18/17 Care time: The patient presented to the Emergency Department on the above date and was hospitalized for further evaluation of their emergent condition. - New Patient This patient is new to me today: Yes Date on this admission: 06/24/17 - Critical Care Critical Care patient: No - Discharge Referral Referred to [facility] No
[2017-06-24] MEDS: ATORVASTATIN CA 20 MG TABLET (FP) PO SCH (21:26)
[2017-06-25] MEDS: BETHANECHOL CHLORIDE 25 MG TABLET PO SCH (05:48)
[2017-06-25] MEDS: HEPARIN NA (PORCINE) 5,000 UNITS/ML 1ML VIAL SQ SCH (05:48)
[2017-06-25] MEDS: POLYETHYLENE GLYCOL 3350 119 GM BTL PO SCH (05:49)
[2017-06-25] MEDS: INSULIN SLIDING SCALE (NOVOLOG) 1 VIAL SQ SCH (06:11)
[2017-06-25] MEDS ORDERED: PT OWN MED DRAWER 7, Y5N ONE ×2 (08:49→09:35)
[2017-06-25 08:57] VITALS: BP 120/59; PULSE 86; TEMP 98.4
[2017-06-25] MEDS: TAMSULOSIN HCL 0.4 MG CAP.ER.24H (FP) PO SCH (08:57)
[2017-06-25] MEDS: LACTOBACILLUS ACIDOPHILUS 1 EACH TAB (FP) PO SCH (08:59)
[2017-06-25] MEDS: FERROUS SO4 325 MG TABLET (FP) PO SCH (08:59)
[2017-06-25] MEDS: CALCIUM CARBONATE 650 MG TABLET PO SCH ×2 (08:59→09:00)
[2017-06-25] MEDS: DOCUSATE SODIUM 100 MG CAPSULE (FP) PO SCH (08:59)
[2017-06-25] MEDS: CLOPIDOGREL BISULFATE 75 MG TABLET (FP) PO SCH (08:59)
[2017-06-25] MEDS: ASPIRIN 81 MG CHEWABLE TABLETS PO SCH (08:59)
[2017-06-25] MEDS: METOPROLOL SUCCINATE 50 MG TAB.SR.24H (FP) PO SCH (08:59)
[2017-06-25] MEDS: amLODIPine BESYLATE 5 MG TABLET (FP) PO SCH (08:59)
[2017-06-25] MEDS: DULoxetine HCL 20 MG CAPSULE.DR (FP) PO SCH (09:56)
--- NOTE | 2017-06-25 10:06 | DS ---
Physical Examination Vital Signs: Vital Signs Temperature 98.4 F 06/25/17 08:56 Pulse Rate 86 06/25/17 08:56 Respiratory Rate 18 06/25/17 08:56 Blood Pressure 120/59 06/25/17 08:56 O2 Sat by Pulse Oximetry (%) 98 06/24/17 21:00 CBCD WBC 7.3 K/mm3 (4.0-10.0) 06/23/17 06:35 RBC 3.44 M/mm3 (3.60-5.2) L 06/23/17 06:35 Hgb 10.1 GM/dL (10.7-15.3) L 06/23/17 06:35 Hct 29.0 % (32.4-45.2) L 06/23/17 06:35 MCV 84.3 fl (80-96) 06/23/17 06:35 MCHC 34.8 g/dl (32.0-36.0) 06/23/17 06:35 RDW 15.7 % (11.6-15.6) H 06/23/17 06:35 Plt Count 273 K/MM3 (134-434) 06/23/17 06:35 MPV 8.1 fl (7.5-11.1) 06/23/17 06:35 CMP Sodium 137 mmol/L (136-145) 06/23/17 06:35 Potassium 4.5 mmol/L (3.5-5.1) 06/23/17 06:35 Chloride 103 mmol/L (98-107) 06/23/17 06:35 Carbon Dioxide 26 mmol/L (21-32) 06/23/17 06:35 Anion Gap 8 (8-16) 06/23/17 06:35 BUN 11 mg/dL (7-18) 06/23/17 06:35 Creatinine 0.6 mg/dL (0.55-1.02) 06/23/17 06:35 Creat Clearance w eGFR > 60 (>60) 06/21/17 05:56 Random Glucose 143 mg/dL (74-106) H 06/23/17 06:35 Calcium 8.7 mg/dL (8.5-10.1) 06/23/17 06:35 Total Bilirubin 0.5 mg/dL (0.2-1.0) D 06/21/17 05:56 AST 11 U/L (15-37) L D 06/21/17 05:56 ALT 9 U/L (12-78) L D 06/21/17 05:56 Alkaline Phosphatase 59 U/L (45-117) 06/21/17 05:56 Total Protein 5.8 g/dl (6.4-8.2) L 06/21/17 05:56 Albumin 2.3 g/dl (3.4-5.0) L D 06/21/17 05:56 CARDIAC ENZYMES Creatine Kinase 28 IU/L (26-192) 06/18/17 21:00 Troponin I < 0.02 ng/ml (0.00-0.05) 06/18/17 21:00 Current Medications Generic Name Dose Route Start Last Admin Trade Name Freq PRN Reason Stop Dose Admin Acetaminophen 650 mg 06/19/17 17:19 06/21/17 01:27 Tylenol - PO 650 mg Q4H PRN Administration FEVER OR PAIN Amlodipine Besylate 10 mg 06/22/17 19:37 06/25/17 08:59 Norvasc - PO 10 mg DAILY [facility] Administration Aspirin 81 mg 06/18/17 10:00 06/25/17 08:59 Asa - PO 81 mg DAILY [facility] Administration Atorvastatin Calcium 20 mg 06/18/17 22:00 06/24/17 21:26 Lipitor - PO 20 mg HS [facility] Administration Bethanechol Chloride 25 mg 06/18/17 06:00 06/25/17 05:48 Urecholine - PO 25 mg TID [facility] Administration Calcium Carbonate 1,300 mg 06/18/17 10:00 06/25/17 09:00 Calcium Carbonate - PO 1,300 mg BID [facility] Administration Clopidogrel Bisulfate 75 mg 06/18/17 10:00 06/25/17 08:59 Plavix - PO 75 mg DAILY [facility] Administration Docusate Sodium 100 mg 06/18/17 10:00 06/25/17 08:59 Colace - PO 100 mg BID [facility] Administration Duloxetine HCl 20 mg 06/18/17 10:00 06/25/17 09:56 Cymbalta - PO 20 mg DAILY [facility] Administration Ferrous Sulfate 325 mg 06/18/17 10:00 06/25/17 08:59 Feosol - PO 325 mg DAILY [facility] Administration Guaifenesin 10 ml 06/18/17 04:20 06/23/17 22:28 Robitussin - PO 10 ml Q6H PRN Administration COUGH Heparin Sodium (Porcine) 5,000 unit 06/18/17 06:00 06/25/17 05:48 Heparin - SQ 5,000 unit TID [facility] Administration Insulin Aspart 1 vial 06/18/17 07:00 06/25/17 06:11 Novolog Vial Sliding Scale - SQ Not Given ACHS [facility] Protocol Lactobacillus Acidophilus 1 tab 06/18/17 10:00 06/25/17 08:59 Bacid - PO 1 tab DAILY [facility] Administration Metoprolol Succinate 75 mg 06/21/17 10:00 06/25/17 08:59 Toprol Xl - PO 75 mg DAILY [facility] Administration Polyethylene Glycol 17 gm 06/18/17 06:00 06/25/17 05:49 Miralax (For Daily Use) - PO Not Given TID [facility] Tamsulosin HCl 0.8 mg 06/22/17 09:00 06/25/17 08:57 Flomax - PO 0.8 mg DAILY@0830 [facility] Administration Home Medications Medication Instructions Recorded Clopidogrel Bisulfate [Plavix -] 75 mg PO DAILY 12/23/15 Duloxetine HCl 20 mg PO DAILY 12/23/15 Ferrous Sulfate 325 mg PO DAILY 12/23/15 Isosorbide Mononitrate [Imdur -] 90 mg PO DAILY 12/23/15 Metformin HCl 850 mg PO BID 12/23/15 Polyethylene Glycol 3350 [Miralax 17 gm PO TID 12/23/15 119 gm Btl -] Docusate Sodium [Colace -] 100 mg PO BID #40 capsule 04/14/16 Atorvastatin Ca [Lipitor] 20 mg PO HS #30 tablet 08/17/16 Amlodipine Besylate [Norvasc -] 10 mg PO DAILY #30 tablet 06/13/17 Aspirin [ASA -] 81 mg PO DAILY #0 tab.chew 06/13/17 Bethanechol Chloride [Urecholine] 25 mg PO TID #90 tablet 06/13/17 Calcium Carbonate - 1,300 mg PO BID #30 tablet 06/13/17 Lactobacillus Acidophilus [Bacid -] 1 tab PO DAILY tab 06/13/17 Metoprolol Succinate [Toprol XL -] 75 mg PO BID #180 tab.sr.24h 06/13/17 Acetaminophen [Tylenol] 650 mg PO QID PRN 06/17/17 Tamsulosin HCl [Flomax -] 0.8 mg PO DAILY@0830 #30 cap 06/23/17 Blood Pressure Kit Med,Large 1 each [facility] DAILY #1 kit 06/25/17 [Blood Pressure Monitor] Echo of heart - negative for vegetations ASSESSMENT/PLAN: 87 yo F with PMH HTN, CAD , CVA , dementia, dyslipidemia, Dm and other medical problems including recent hospitalization for L great toe infection , who presented with decreased responsiveness and dry cough. She was found to have sepsis 2/2 UTI which is now improved. #s/p Sepsis due to UTI -resolved. 06/17 G+ bacteremia probably a contaminant. s /p 7 days of abx. off antibiotics now. #Urinary retention - may be leading to frequent UTIs urology clinic as an outpatient , on flomax 0.8mcg daily continue will discontinue Urocholine since patient is having UTI due to urinary retention. 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 # anemia- stable #CAD-on asa/plavix/statin, Imdur was on hold since patient was found hypotensive. As per conversation with the daughter , to continue a lower dose of Imdur 30mg since patient was found to have low blood pressure also was suggested to call in am for further f/u and discuss the dosage of Imdur 30mg vs 90mg. prescribed to her previously. # DM- continue metformin. Discharge patient home time taken to discharge 35 minutes. Labs: CBC, BMP 06/23/17 06:35 06/23/17 06:35 Discharge Summary Reason For Visit: URINARY TRACT INFECTION/SEVERE SEPSIS Current Active Problems UTI (urinary tract infection) (Acute) Chronic constipation (Chronic) Condition: Stable - Instructions Diet, Activity, Other Instructions: You were hospitalized for an infection in your bladder You received enough antibiotics in the hospital and do not need any more at home. Please follow up with Dr. Gaspar as an outpatient for your bladder problems. Please follow-up with your general medical doctor. If symptoms return please come back to the hospital or nearest ER for evaluation. Medication Changes: Tamsulosin was INCREASED to 0.8mg once daily by mouth; a prescription has been sent to your pharmacy. Norvasc (aka Amlodipine) has been INCREASED to 10mg once daily by mouth; a prescription has been sent to your pharmacy and is waiting to be picked up Referrals: Lionel Gaspar MD., [Staff Physician] - 1 Week Disposition: VNS/HOME HEALTH CARE - Home Medications Comprehensive Discharge Medication List: Ambulatory Orders Clopidogrel Bisulfate [Plavix -] 75 mg PO DAILY 12/23/15 Duloxetine HCl 20 mg PO DAILY 12/23/15 Ferrous Sulfate 325 mg PO DAILY 12/23/15 Isosorbide Mononitrate [Imdur -] 90 mg PO DAILY 12/23/15 Metformin HCl 850 mg PO BID 12/23/15 Polyethylene Glycol 3350 [Miralax 119 gm Btl -] 17 gm PO TID 12/23/15 Docusate Sodium [Colace -] 100 mg PO BID #40 capsule 04/14/16 Atorvastatin Ca [Lipitor] 20 mg PO HS #30 tablet 08/17/16 Amlodipine Besylate [Norvasc -] 10 mg PO DAILY #30 tablet 06/13/17 Aspirin [ASA -] 81 mg PO DAILY #0 tab.chew 06/13/17 Bethanechol Chloride [Urecholine] 25 mg PO TID #90 tablet 06/13/17 Calcium Carbonate - 1,300 mg PO BID #30 tablet 06/13/17 Lactobacillus Acidophilus [Bacid -] 1 tab PO DAILY tab 06/13/17 Metoprolol Succinate [Toprol XL -] 75 mg PO BID #180 tab.sr.24h 06/13/17 Acetaminophen [Tylenol] 650 mg PO QID PRN 06/17/17 Tamsulosin HCl [Flomax -] 0.8 mg PO DAILY@0830 #30 cap 06/23/17 Blood Pressure Kit Kandy Snyder [Blood Pressure Monitor] 1 each [facility] DAILY #1 kit This patient is new to me today: No Emergency Visit: Yes ED Registration Date: 06/18/17 Care time: The patient presented to the Emergency Department on the above date and was hospitalized for further evaluation of their emergent condition. Critical Care patient: No - Discharge Referral Referred to [facility] No
== END 2017-06-25 10:42 | disposition home health service (06) | DRG 871 ==
LOC: JER 21:37 → JERBED 06-18 01:52 → UNDOADMIN 06-18 01:57 → JERBED 06-18 01:57 → J5S 06-18 03:31
PROVIDERS: ADMIT Internal Medicine; ATTEND Internal Medicine
DX: A41.89 Other specified sepsis (principal); E43 Unspecified severe protein-calorie malnutrition; L03.116 Cellulitis of left lower limb; Z68.1 Body mass index [BMI] 19.9 or less, adult; R65.20 Severe sepsis without septic shock; E78.5 Hyperlipidemia, unspecified; I10 Essential (primary) hypertension; F03.90 Unspecified dementia, unspecified severity, without behavioral disturbance, psychotic disturbance, mood disturbance, and anxiety; K59.09 Other constipation; I25.10 Atherosclerotic heart disease of native coronary artery without angina pectoris; N28.9 Disorder of kidney and ureter, unspecified; I95.89 Other hypotension; D64.9 Anemia, unspecified; E11.319 Type 2 diabetes mellitus with unspecified diabetic retinopathy without macular edema; E11.65 Type 2 diabetes mellitus with hyperglycemia; I65.21 Occlusion and stenosis of right carotid artery; H40.89 Other specified glaucoma; L89.152 Pressure ulcer of sacral region, stage 2; N32.89 Other specified disorders of bladder; R33.8 Other retention of urine; E86.9 Volume depletion, unspecified; Z95.1 Presence of aortocoronary bypass graft; Z95.5 Presence of coronary angioplasty implant and graft; Z86.73 Personal history of transient ischemic attack (TIA), and cerebral infarction without residual deficits; Z79.84 Long term (current) use of oral hypoglycemic drugs
CPT/HCPCS: 36415; 71010-TC; 76775-TC; 76856-TC; 80048; 80053; 81003; 81015; 82550; 82728; 82803; 83540; 83550; 83605; 83735; 84100; 84466; 84484; 85025; 85027; 87040; 87077; 87086; 87633; 87804; 93005; 93010; 93306-TC; 97161-GP; 99285-25; G0480; J1644

== ENCOUNTER 2018-01-14 19:12 | Inpatient (IN) | payer OTHER ==
--- NOTE | 2018-01-14 20:11 | PDOC ---
History of Present Illness - General Stated Complaint: UTI Time Seen by Provider: 01/14/18 19:52 - History of Present Illness Initial Comments: 87-year-old female with dementia. Family complains of mental status changes 1 day. They state when she had a prior change like that she had a urinary tract infection. Patient is demented poor historian without any complaints. Past medical history coronary artery disease diabetes constipation hypertension. Current medications include Tyleno,l Plavix, duloxetine, ferrous sulfate, metformin, MiraLAX, Norvasc, aspirin, Lipitor, calcium carbonate, Colace, and metoprolol 01/14/18 20:06 Past History - Past Medical History Allergies/Adverse Reactions: Allergies Allergy/AdvReac Type Severity Reaction Status Date / Time quetiapine [From Seroquel] Allergy Verified 01/14/18 19:51 ranolazine [From Ranexa] Allergy Verified 01/14/18 19:51 Home Medications: Ambulatory Orders Clopidogrel Bisulfate [Plavix -] 75 mg PO DAILY 12/23/15 Duloxetine HCl 20 mg PO DAILY 12/23/15 Ferrous Sulfate 325 mg PO DAILY 12/23/15 Metformin HCl 850 mg PO BID 12/23/15 Polyethylene Glycol 3350 [Miralax 119 gm Btl -] 17 gm PO TID 12/23/15 Docusate Sodium [Colace -] 100 mg PO BID #40 capsule 04/14/16 Atorvastatin Ca [Lipitor] 20 mg PO HS #30 tablet 08/17/16 Amlodipine Besylate [Norvasc -] 10 mg PO DAILY #30 tablet 06/13/17 Aspirin [ASA -] 81 mg PO DAILY #0 tab.chew 06/13/17 Calcium Carbonate - 1,300 mg PO BID #30 tablet 06/13/17 Lactobacillus Acidophilus [Bacid -] 1 tab PO DAILY tab 06/13/17 Metoprolol Succinate [Toprol XL -] 75 mg PO BID #180 tab.sr.24h 06/13/17 Acetaminophen [Tylenol] 650 mg PO QID PRN 06/17/17 Tamsulosin HCl [Flomax -] 0.8 mg PO DAILY@0830 #30 cap 06/23/17 Bacitracin - [Bacitracin Topical Ointment -] 1 applic TP TID #1 tube 07/03/17 levoFLOXacin [Levaquin -] 500 mg PO DAILY #7 tablet 07/03/17 Anemia: No Asthma: No Cancer: No Cardiac Disorders: Yes (angina) CVA: Yes COPD: No CHF: No Dementia: Yes Diabetes: Yes GI Disorders: Yes (Severe constipation) Disorders: Yes (Occassional UTI (12/2012)) HTN: Yes Hypercholesterolemia: Yes Liver Disease: No Seizures: No Thyroid Disease: No - Surgical History Abdominal Surgery: Yes Appendectomy: Yes Cardiac Surgery: Yes (QUAD. BYPASS, CARDIAC STENT) Cholecystectomy: No Lung Surgery: No Neurologic Surgery: No Orthopedic Surgery: No - Immunization History Immunization Up to Date: Yes - Suicide/Smoking/Psychosocial Hx Smoking Status: No Smoking History: Never smoked Have you smoked in the past 12 months: No Number of Cigarettes Smoked Daily: 0 Information on smoking cessation initiated: No Hx Alcohol Use: No Drug/Substance Use Hx: No Substance Use Type: None Hx Substance Use Treatment: No Review of Systems - Review of Systems Constitutional: No: Chills, Fever, Malaise, Night Sweats, Weakness Respiratory: No: Cough, Shortness of Breath Cardiac (ROS): No: Chest Pain, Chest Tightness ABD/GI: Yes: Constipated. No: Abdominal Distended : No: Burning, Dysuria Musculoskeletal: No: Back Pain Integumentary: No: Bruising Neurological: Yes: Other Psychiatric: Yes: Other Endocrine: No: Excessive Sweating Hematologic/Lymphatic: No: Blood Clots All Other Systems: Reviewed and Negative *Physical Exam - Vital Signs Last Vital Signs Temp Pulse Resp BP Pulse Ox 97.6 F 86 18 126/77 98 01/14/18 19:41 01/14/18 19:41 01/14/18 19:41 01/14/18 19:41 01/14/18 19:41 - Physical Exam Comments: GENERAL: [The patient is arousable in no acute distress.] HEAD: [Normal with no signs of trauma.] EYES: [Left eye with cataracts. NECK: [Normal range of motion, supple without lymphadenopathy, JVD, or masses.] LUNGS: [Breath sounds coarse rhonchi bilaterally] HEART: [Regular rate and rhythm, normal S1 and S2 without murmur, rub or gallop. ] ABDOMEN: [Soft, nontender, normoactive bowel sounds. No guarding, no rebound. No masses.] EXTREMITIES: [Normal range of motion, no edema. No clubbing or cyanosis. No cords, erythema, or tenderness.] NEUROLOGICAL: [Patient is arousable without any focal deficits] PSYCH: [Normal mood, normal affect.] SKIN: [Warm, Dry, normal turgor, no rashes or lesions noted.] 01/14/18 20:10 ED Treatment Course - LABORATORY CBC & Chemistry Diagram: 01/14/18 21:00 01/14/18 21:00 - RADIOLOGY Radiology Studies Ordered: Category Date Time Status CXRPORT [CHEST X-RAY PORTABLE*] [RAD] Stat Radiology 01/14/18 20:01 Ordered Medical Decision Making - Medical Decision Making 01/14/18 23:[address] Lyons for admission *DC/Admit/Observation/Transfer Diagnosis at time of Disposition: UTI (urinary tract infection) - Discharge Dispostion Condition at time of disposition: Fair Decision to Admit order: Yes - Referrals Referrals: Nisa Lyons MD [Primary Care Provider] - - Patient Instructions - Post Discharge Activity
[2018-01-14] MEDS: SODIUM CHLORIDE 1,000 ML IV SCH (21:04)
[2018-01-14 21:08] LABS: BASO % 0.2 % (0-2.0); EOS % 0.8 % (0-4.5); HEMATOCRIT 35.9 % (32.4-45.2); HEMOGLOBIN 12.2 GM/dL (10.7-15.3); LYMPH % 27.6 % (8-40); MCH 29.7 pg (25.7-33.7); MEAN CELL VOLUME 87.6 fl (80-96); MEAN PLT VOLUME 8.5 fl (7.5-11.1); NEUT % 60.4 % (42.8-82.8); PLATELET COUNT 215 K/MM3 (134-434); RBC 4.11 M/mm3 (3.60-5.2); RDW 13.5 % (11.6-15.6); WHITE BLOOD COUNT 7.4 K/mm3 (4.0-10.0)
[2018-01-14 21:32] LABS: ALBUMIN 3.4 g/dl (3.4-5.0); ALK PHOS 97 U/L (45-117); ANION GAP 10 (8-16); BILIRUBIN,TOTAL 0.3 mg/dL (0.2-1.0); BLOOD UREA NITROGEN 23 mg/dL (7-18); CALCIUM 8.8 mg/dL (8.5-10.1); CHLORIDE 98 mmol/L (98-107); CO2 23 mmol/L (21-32); CREATININE 0.9 mg/dL (0.55-1.02); GLUCOSE,RANDOM 250 mg/dL (74-106); POTASSIUM 4.7 mmol/L (3.5-5.1); SGOT/AST 9 U/L (15-37); SGPT/ALT 11 U/L (12-78); SODIUM 131 mmol/L (136-145); TOT PROT 7.4 g/dl (6.4-8.2)
[2018-01-14] MEDS ORDERED: INSULIN REGULAR HUMAN 100 UNITS/ML *VIAL IVPUSH ONE (22:16)
[2018-01-14 22:37] LABS: URINE APPEARANCE TURBID; URINE BILIRUBIN NEGATIVE (<2.0 mg/dL); URINE COLOR DKYELLOW; URINE GLUCOSE (UA) NEGATIVE (NEGATIVE); URINE KETONE NEGATIVE (NEGATIVE); URINE LEUK ESTERASE 3+ (NEGATIVE); URINE NITRITE NEGATIVE (NEGATIVE); URINE PROTEIN 2+ (NEGATIVE); URINE UROBILINOGEN NEGATIVE mg/dL (0.2-1.0)
[2018-01-14 22:43] LABS: EPI CELLS RARE /HPF (FEW); URINE BACTERIA RARE /hpf (NONE SEEN)
[2018-01-14] MEDS ORDERED: CEFTRIAXONE 1,000 MG in DEXTROSE 5%-WATER - 50 ML IVPB ONE (23:13)
[2018-01-14] MEDS ORDERED: SODIUM CHLORIDE 1,000 ML IV SCH (23:30)
[2018-01-14] MEDS ORDERED: ACETAMINOPHEN 325 MG TABLET (FP) PO PRN (23:33)
[2018-01-15] MEDS ORDERED: CEFTRIAXONE 1 GM/50 ML BAG ONE (00:18)
[2018-01-15] MEDS ORDERED: ATORVASTATIN CA 40 MG TABLET (FP) ONE ×2 (00:18→23:31)
[2018-01-15] MEDS ORDERED: SODIUM CHLORIDE 1,000 ML IV SCH (00:18)
[2018-01-15] MEDS ORDERED: HEPARIN NA (PORCINE) 5,000 UNITS/ML 1ML VIAL ONE ×2 (00:18→23:32)
[2018-01-15] MEDS ORDERED: INSULIN REGULAR HUMAN 100 UNITS/ML *VIAL ONE (00:19)
--- NOTE | 2018-01-15 00:37 | HP ---
CHIEF COMPLAINT: AMS PCP: Dr. Carmichael HISTORY OF PRESENT ILLNESS: 87 year old female with a hx of CAD, dementia, DM, HTN, constipation, multiple UTIs presents for a 1 day hx of altered mental status that began at 1pm today. The patient's aid states that she is, at baseline, happy and talkative, being able to respond to commands despite a history of dementia. Earlier this afternoon, patient's behavior changed to being non-verbal and flailing her arms above her head slowly in the bed, not responding to verbal commands anymore. The aid reports this happening several times in the past, all of which were caused by urinary tract infections. Upon questioning, the patient denies chest pain, shortness of breath, nausea, vomiting, diarrhea, fevers, chills. ER course was notable for: (1) 1 gm ceftriaxone given (2) UA + leukocyte esterase/ WBC 517 (3) Na 131 PAST MEDICAL HISTORY: CAD Dementia HTN Constipation Multiple UTIs PAST SURGICAL HISTORY: CABG s/p stents Appendectomy Social History: Smoking: never Alcohol: never Drugs: never Allergies quetiapine [From Seroquel] Allergy (Verified 01/14/18 19:51) ranolazine [From Ranexa] Allergy (Verified 01/14/18 19:51) HOME MEDICATIONS: Home Medications Medication Instructions Recorded Clopidogrel Bisulfate [Plavix -] 75 mg PO DAILY 12/23/15 Duloxetine HCl 20 mg PO DAILY 12/23/15 Ferrous Sulfate 325 mg PO DAILY 12/23/15 Metformin HCl 850 mg PO BID 12/23/15 Polyethylene Glycol 3350 [Miralax 17 gm PO TID 12/23/15 119 gm Btl -] Docusate Sodium [Colace -] 100 mg PO BID #40 capsule 04/14/16 Atorvastatin Ca [Lipitor] 20 mg PO HS #30 tablet 08/17/16 Amlodipine Besylate [Norvasc -] 10 mg PO DAILY #30 tablet 06/13/17 Aspirin [ASA -] 81 mg PO DAILY #0 tab.chew 06/13/17 Calcium Carbonate - 1,300 mg PO BID #30 tablet 06/13/17 Lactobacillus Acidophilus [Bacid -] 1 tab PO DAILY tab 06/13/17 Metoprolol Succinate [Toprol XL -] 75 mg PO BID #180 tab.sr.24h 06/13/17 Acetaminophen [Tylenol] 650 mg PO QID PRN 06/17/17 Tamsulosin HCl [Flomax -] 0.8 mg PO DAILY@0830 #30 cap 06/23/17 Bacitracin - [Bacitracin Topical 1 applic TP TID #1 tube 07/03/17 Ointment -] levoFLOXacin [Levaquin -] 500 mg PO DAILY #7 tablet 07/03/17 REVIEW OF SYSTEMS CONSTITUTIONAL: Absent: fever, chills, diaphoresis, generalized weakness, malaise, loss of appetite, weight change HEENT: Absent: rhinorrhea, nasal congestion, throat pain, throat swelling, difficulty swallowing, mouth swelling, ear pain, eye pain, visual changes CARDIOVASCULAR: Absent: chest pain, syncope, palpitations, irregular heart rate, lightheadedness , peripheral edema RESPIRATORY: Absent: cough, shortness of breath, dyspnea with exertion, orthopnea, wheezing, stridor, hemoptysis GASTROINTESTINAL: Absent: abdominal pain, abdominal distension, nausea, vomiting, diarrhea, constipation, melena, hematochezia GENITOURINARY: Absent: dysuria, frequency, urgency, hesitancy, hematuria, flank pain, genital pain MUSCULOSKELETAL: Absent: myalgia, arthralgia, joint swelling, back pain, neck pain SKIN: Absent: rash, itching, pallor HEMATOLOGIC/IMMUNOLOGIC: Absent: easy bleeding, easy bruising, lymphadenopathy, frequent infections ENDOCRINE: Absent: unexplained weight gain, unexplained weight loss, heat intolerance, cold intolerance NEUROLOGIC: Absent: headache, focal weakness or paresthesias, dizziness, unsteady gait, seizure, mental status changes, bladder or bowel incontinence PSYCHIATRIC: Absent: anxiety, depression, suicidal or homicidal ideation, hallucinations. PHYSICAL EXAMINATION Vital Signs - 24 hr 01/14/18 19:41 Temperature 97.6 F Pulse Rate 86 Respiratory 18 Rate Blood Pressure 126/77 O2 Sat by Pulse 98 Oximetry (%) GENERAL: not alert or oriented, no acute distress, patient appears very thin ENT: Dry mucus membranes NECK: No JVD LUNGS: CTA, no wheezes HEART: RRR, systolic murmur noted on exam ABDOMEN: Soft, nontender, BS present, no suprapubic tenderness MUSCULOSKELETAL: No CVA Tenderness EXTREMITIES: 2+ pulses, no edema. NEUROLOGICAL: Unable to assess neuro exam due to mental status : Valencia in place draining white, cloudy urine with a lot of sediment Laboratory Results - last 24 hr 01/14/18 01/14/18 01/14/18 21:00 21:00 21:00 WBC 7.4 D RBC 4.11 D Hgb 12.2 D Hct 35.9 D MCV 87.6 MCH 29.7 MCHC 34.0 RDW 13.5 D Plt Count 215 D MPV 8.5 D Neutrophils % 60.4 Lymphocytes % 27.6 Monocytes % 11.0 H Eosinophils % 0.8 Basophils % 0.2 Sodium 131 L Potassium 4.7 Chloride 98 Carbon Dioxide 23 Anion Gap 10 BUN 23 H Creatinine 0.9 Creat Clearance w eGFR 59.23 Random Glucose 250 H Calcium 8.8 Total Bilirubin 0.3 D AST 9 L ALT 11 L Alkaline Phosphatase 97 Ammonia Troponin I < 0.02 Total Protein 7.4 Albumin 3.4 Urine Color Urine Appearance Urine pH Ur Specific [place] Urine Protein Urine Glucose (UA) Urine Ketones Urine Blood Urine Nitrite Urine Bilirubin Urine Urobilinogen Ur Leukocyte Esterase Urine WBC (Auto) Urine RBC (Auto) Ur Epithelial Cells Urine Bacteria 01/14/18 01/14/18 21:00 22:22 WBC RBC Hgb Hct MCV MCH MCHC RDW Plt Count MPV Neutrophils % Lymphocytes % Monocytes % Eosinophils % Basophils % Sodium Potassium Chloride Carbon Dioxide Anion Gap BUN Creatinine Creat Clearance w eGFR Random Glucose Calcium Total Bilirubin AST ALT Alkaline Phosphatase Ammonia 41.36 H Troponin I Total Protein Albumin Urine Color Dkyellow Urine Appearance Turbid Urine pH 5.0 Ur Specific [place] 1.010 Urine Protein 2+ H Urine Glucose (UA) Negative Urine Ketones Negative Urine Blood 1+ H Urine Nitrite Negative Urine Bilirubin Negative Urine Urobilinogen Negative Ur Leukocyte Esterase 3+ H Urine WBC (Auto) 517 Urine RBC (Auto) 16 Ur Epithelial Cells Rare Urine Bacteria Rare ASSESSMENT/PLAN: 87 year old female with a hx of CAD, dementia, DM, HTN, constipation, multiple UTIs presents for a 1 day hx of altered mental status suspect for urinary tract infection #Altered Mental Status: likely 2/2 urinary tract infection -patient given 1gm rocephin in ED -patient has a hx of ESBL E coli and Pseudomonas in urine -IV NS @ 50cc/hr -head CT to r/o other causes of AMS -give ceftazidine 1gm Q8 -ID consult Dr. Ritchie appreciated -isolation precautions -fall precautions -remove valencia, do bladder scan for post void residual -continue tamsulosin #Diabetes Mellitus: glucose was 280 on presentation -BGMs ACHS -ISS ACHS #Hypertension: patient is normotensive currently -continue home toprol XL 75mg BID -continue home amlodipine #CAD: not an acute complaint -continue home asa/plavix -confirm home medications #FEN -IV NS @ 50cc/hr -recheck BMP in AM -diabetic diet once AMS improves #Prophylaxis -heparin 5000 bid #Disposition -admit med-surg Visit type - Emergency Visit Emergency Visit: Yes Care time: The patient presented to the Emergency Department on the above date and was hospitalized for further evaluation of their emergent condition. - New Patient This patient is new to me today: Yes Date on this admission: 01/15/18 - Critical Care Critical Care patient: No Hospitalist Screening - Colonoscopy Questionnaire Colonoscopy Questionnaire: Colonoscopy Questionnaire - Patient: 50 - 75 years old and never had a screening colonoscopy: Unknown History of colon or rectal polyps, or CA: Unknown History of IBD, Crohn's disease or UC: Unknown History of abdominal radiation therapy as a child: Unknown - Relative: 1 with colon or rectal CA, or polyps at age 60 or younger: Unknown Colon or rectal CA diagnosed at age 45 or younger: Unknown Multiple relatives with colon or rectal CA: Unknown - Outcome: Screening Result: Negative Screen
[2018-01-15] MEDS: CEFTAZIDIME PENTAHYDRATE 1 GM in DEXTROSE 5%-WATER - 50 ML IVPB SCH ×2 (03:37→12:48)
--- NOTE | 2018-01-15 03:46 | PN ---
Teaching Attending Note Name of Resident: London Alexis ATTENDING PHYSICIAN STATEMENT I saw and evaluated the patient. I reviewed the resident's note and discussed the case with the resident. I agree with the resident's findings and plan as documented. SUBJECTIVE: Patient is an 87 year old woman with chief complaint of altered mental status and foul smelling urine. She has dementia and family noted that she was unable to talk as usual. She has history of CAD, DM, HTN, severe chronic constipation ( take miralax tid), and multiple UTIs. Most recent UTI was in May 2017 and Pseudomonas was isolated from her urine. She is bedbound and has dentures, but eats only puree diet. Incontinent of urine. OBJECTIVE: In no acute distress. Unable to answer questions. Vital Signs Period Temp Pulse Resp BP Sys/Iniguez Pulse Ox Last 24 Hr 97.6 F 86 18 126/77 98 HEENT: No Jaundice, eye redness or discharge, PERRLA, EOMI. External ears are normal and hearing is grossly intact. No nasal discharge. Neck: Supple, nontender. No palpable adenopathy or thyromegaly. No JVD Chest: Good effort. Clear to auscultation and percussion. Heart: Regular. No S3, rub or murmur Abdomen: Not distended, soft, nontender and no HSM. No rebound or guarding. Normoactive bowel sounds. Valencia in place with cloudy urine. Ext: Peripheral pulses intact. No leg edema. Skin: Warm and dry. No petechiae, rash or ecchymosis. Neuro: Dementia. Unable to follow commands. Sensation grossly intact in all four extremities and DTR are symmetric. Current Medications Generic Name Dose Route Start Last Admin Trade Name Freq PRN Reason Stop Dose Admin Acetaminophen 650 mg 01/14/18 23:33 Tylenol - PO QID PRN FEVER Amlodipine Besylate 10 mg 01/15/18 10:00 Norvasc - PO DAILY SEAN Aspirin 81 mg 01/15/18 10:00 Asa - PO DAILY SEAN Atorvastatin Calcium 20 mg 01/15/18 22:00 Lipitor - PO HS SEAN Bacitracin 1 applic 01/15/18 06:00 Bacitracin - TP TID SEAN Calcium Carbonate 1,300 mg 01/15/18 10:00 Calcium Carbonate - PO BID SEAN Ceftazidime 1 gm 01/15/18 00:15 Fortaz 1 Gm Ivpb (Pre-Docked) IVPB Q8H [facility] Protocol Clopidogrel Bisulfate 75 mg 01/15/18 10:00 Plavix - PO DAILY [facility] Docusate Sodium 100 mg 01/15/18 10:00 Colace - PO BID [facility] Duloxetine HCl 20 mg 01/15/18 10:00 Cymbalta - PO DAILY [facility] Heparin Sodium (Porcine) 5,000 unit 01/15/18 10:00 Heparin - SQ BID [facility] Sodium Chloride 1,000 mls @ 75 mls/hr 01/14/18 20:15 01/14/18 21:04 Normal Saline - IV 75 mls/hr ASDIR SEAN Administration Sodium Chloride 1,000 mls @ 50 mls/hr 01/15/18 00:18 Normal Saline - IV ASDIR [facility] Ceftazidime 1 gm/ Dextrose 50 mls @ 100 mls/hr 01/15/18 02:15 IVPB 01/15/18 10:29 Q8H-IV [facility] Insulin Aspart 0 vial 01/15/18 07:00 Novolog Vial Sliding Scale - SQ ACHS [facility] Protocol Lactobacillus Acidophilus 1 tab 01/15/18 10:00 Bacid - PO DAILY [facility] Metoprolol Succinate 75 mg 01/15/18 10:00 Toprol Xl - PO BID [facility] Non-Formulary Medication 325 mg 01/15/18 10:00 Ferrous Sulfate [Ferrous Sulfate] PO DAILY [facility] Polyethylene Glycol 17 gm 01/15/18 06:00 Miralax (For Daily Use) - PO TID [facility] Tamsulosin HCl 0.8 mg 01/15/18 08:30 Flomax - PO DAILY@0830 [facility] Home Medications Medication Instructions Recorded Clopidogrel Bisulfate [Plavix -] 75 mg PO DAILY 12/23/15 Duloxetine HCl 20 mg PO DAILY 12/23/15 Ferrous Sulfate 325 mg PO DAILY 12/23/15 Metformin HCl 850 mg PO BID 12/23/15 Polyethylene Glycol 3350 [Miralax 17 gm PO TID 12/23/15 119 gm Btl -] Docusate Sodium [Colace -] 100 mg PO BID #40 capsule 04/14/16 Atorvastatin Ca [Lipitor] 20 mg PO HS #30 tablet 08/17/16 Amlodipine Besylate [Norvasc -] 10 mg PO DAILY #30 tablet 06/13/17 Aspirin [ASA -] 81 mg PO DAILY #0 tab.chew 06/13/17 Calcium Carbonate - 1,300 mg PO BID #30 tablet 06/13/17 Lactobacillus Acidophilus [Bacid -] 1 tab PO DAILY tab 06/13/17 Metoprolol Succinate [Toprol XL -] 75 mg PO BID #180 tab.sr.24h 06/13/17 Acetaminophen [Tylenol] 650 mg PO QID PRN 06/17/17 Tamsulosin HCl [Flomax -] 0.8 mg PO DAILY@0830 #30 cap 06/23/17 Bacitracin - [Bacitracin Topical 1 applic TP TID #1 tube 07/03/17 Ointment -] levoFLOXacin [Levaquin -] 500 mg PO DAILY #7 tablet 07/03/17 Laboratory Results - last 24 hr 01/14/18 01/14/18 01/14/18 21:00 21:00 21:00 WBC 7.4 D RBC 4.11 D Hgb 12.2 D Hct 35.9 D MCV 87.6 MCH 29.7 MCHC 34.0 RDW 13.5 D Plt Count 215 D MPV 8.5 D Neutrophils % 60.4 Lymphocytes % 27.6 Monocytes % 11.0 H Eosinophils % 0.8 Basophils % 0.2 Sodium 131 L Potassium 4.7 Chloride 98 Carbon Dioxide 23 Anion Gap 10 BUN 23 H Creatinine 0.9 Creat Clearance w eGFR 59.23 Random Glucose 250 H Calcium 8.8 Total Bilirubin 0.3 D AST 9 L ALT 11 L Alkaline Phosphatase 97 Ammonia Troponin I < 0.02 Total Protein 7.4 Albumin 3.4 Urine Color Urine Appearance Urine pH Ur Specific [place] Urine Protein Urine Glucose (UA) Urine Ketones Urine Blood Urine Nitrite Urine Bilirubin Urine Urobilinogen Ur Leukocyte Esterase Urine WBC (Auto) Urine RBC (Auto) Ur Epithelial Cells Urine Bacteria 01/14/18 01/14/18 21:00 22:22 WBC RBC Hgb Hct MCV MCH MCHC RDW Plt Count MPV Neutrophils % Lymphocytes % Monocytes % Eosinophils % Basophils % Sodium Potassium Chloride Carbon Dioxide Anion Gap BUN Creatinine Creat Clearance w eGFR Random Glucose Calcium Total Bilirubin AST ALT Alkaline Phosphatase Ammonia 41.36 H Troponin I Total Protein Albumin Urine Color Dkyellow Urine Appearance Turbid Urine pH 5.0 Ur Specific [place] 1.010 Urine Protein 2+ H Urine Glucose (UA) Negative Urine Ketones Negative Urine Blood 1+ H Urine Nitrite Negative Urine Bilirubin Negative Urine Urobilinogen Negative Ur Leukocyte Esterase 3+ H Urine WBC (Auto) 517 Urine RBC (Auto) 16 Ur Epithelial Cells Rare Urine Bacteria Rare ASSESSMENT AND PLAN: 1. UTI - Will admit as an inpatient for IV antibiotics and further evaluation of her AMS which is likely due to toxic metabolic encaphalopathy caused by UTI. Based on urine culture from May 2017, will treat with Ceftazidime to cover for Pseudomonas, pending current urine culture report. CT scan of head to exclude intracranial bleeding. Discontinue valencia catheter. 2. Hyponatremia - Likely due to hyperglycemia. Will give IV NS and strive for euglycemia. 3. DM - Hold metformin and treat with sliding scale insulin. 4. Chronic constipation - Continue miralax daily. 5. Nutrition - Await swallow evaluation before resuming puree diet. 6. DVT prophylaxis - Heparin 5000u sq tid. 7. Advance directives - Full code.
[2018-01-15 06:34] LABS: HEMOGLOBIN 13.7 GM/dL (10.7-15.3); MCH 30.4 pg (25.7-33.7); MCHC 34.4 g/dl (32.0-36.0); MEAN CELL VOLUME 88.3 fl (80-96); MEAN PLT VOLUME 8.8 fl (7.5-11.1); PLATELET COUNT 205 K/MM3 (134-434); RBC 4.52 M/mm3 (3.60-5.2); RDW 13.6 % (11.6-15.6); WHITE BLOOD COUNT 10.6 K/mm3 (4.0-10.0)
[2018-01-15 06:58] LABS: ANION GAP 7 (8-16); BLOOD UREA NITROGEN 22 mg/dL (7-18); CHLORIDE 103 mmol/L (98-107); CO2 23 mmol/L (21-32); CREATININE 0.8 mg/dL (0.55-1.02); GLUCOSE,RANDOM 161 mg/dL (74-106); MAGNESIUM 1.9 mg/dL (1.8-2.4); PHOSPHOROUS 3.5 mg/dL (2.5-4.9); POTASSIUM 4.6 mmol/L (3.5-5.1); SODIUM 133 mmol/L (136-145)
[2018-01-15] MEDS: POLYETHYLENE GLYCOL 3350 119 GM BTL PO SCH ×3 (07:27→23:34)
[2018-01-15] MEDS: BACITRACIN 15 GM TUBE TOPICAL OINTMENT TP SCH ×2 (07:27→18:35)
[2018-01-15] MEDS: INSULIN SLIDING SCALE (NOVOLOG) 1 VIAL SQ SCH ×3 (07:35→18:46)
--- NOTE | 2018-01-15 11:52 | CONSULT ---
Admitting History and Physical - Primary Care Physician PCP: Sherin Chaidez - Admission History of Present Illness: Per EMR: 87 year old female with a hx of CAD, dementia, DM, HTN, constipation, multiple UTIs presents for a 1 day hx of altered mental status that began at 1pm today. The patient's aid states that she is, at baseline, happy and talkative, being able to respond to commands despite a history of dementia. Earlier this afternoon, patient's behavior changed to being non-verbal and flailing her arms above her head slowly in the bed, not responding to verbal commands anymore. The aid reports this happening several times in the past, all of which were caused by urinary tract infections. Upon questioning, the patient denies chest pain, shortness of breath, nausea, vomiting, diarrhea, fevers, chills. ER course was notable for: (1) 1 gm ceftriaxone given (2) UA + leukocyte esterase/ WBC 517 (3) Na 131 Family requested pureed diet. Pt last seen by me 2016, at which time she was on pureed diet and thin liquid. 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 History of Recent Travel: No History - Admission Reason For Visit: UTI - Diagnostics X-ray: Report Reviewed CT Scan: Report Reviewed - General Mental Status: Awake and Alert, Confused Attention: Distractible Head/Neck Control: Fair - Hearing Hearing: Functional Speech Evaluation - Communication Primary Language: BENGALI Communication: Yes: Language Barrier - Speech Production Intelligibility: Yes: WNL - Speech Characteristics Voice Loudness: Normal Voice Pitch: Yes: Normal Voice Phonatory-based Quality: Yes: Normal Nasal Resonance: Normal Articulation: Yes: Precise - Language/Auditory Comprehension Observation: Comprehends Conversational Speech: Yes (intermittent simple) - Swallow Evaluation/Bedside Assessment Current Nutritional Intake: Regular, Thin Liquids Oral Secretions: Yes: WFL Dentition: Yes: Missing Teeth Facial Symmetry at Rest: Symmetrical Smile: Normal Lingual Movement: Symmetric Lingual Speed of Movement: Normal Lingual Movement Strgth Against Opposition: Normal Laryngeal Elevation: WFL Laryngeal Movement: Able to Palpate Rate of Intake: WFL Labial Seal: WFL Oral Prep Time: WFL Pocketing: None Coughing/Throat Clear: No Recommendations - Speech Evaluation, Impression/Plan Impression: Singing. Articulation WNL. Good vocal quality. Swallow is brisk without overt signs of aspiration. - Dysphagia Impressions/Plan Dysphagia Impressions: Ongoing Evaluation *Silent aspiration: cannot be R/O at bedside Dysphagia Treatment Plan: Chin Tuck/Down, Safe Rate, 1/2 tsp. at a time, Elevate HOB during feed - Recommendations Diet Consistency: Dysphagia Pureed Medication Administration: Crushed with applesauce Liquids: Thin Liquids Supplement: Ensure
[2018-01-15] MEDS: TAMSULOSIN HCL 0.4 MG CAP.ER.24H (FP) PO SCH (12:42)
[2018-01-15] MEDS: ASPIRIN 81 MG CHEWABLE TABLETS PO SCH (12:43)
[2018-01-15] MEDS: LACTOBACILLUS ACIDOPHILUS 1 TABLET PO SCH (12:43)
[2018-01-15] MEDS: DOCUSATE SODIUM 100 MG CAPSULE (FP) PO SCH ×2 (12:44→23:34)
[2018-01-15] MEDS: CALCIUM CARBONATE 650 MG TABLET PO SCH (12:44)
[2018-01-15] MEDS: FERROUS SO4 325 MG TABLET (FP) PO SCH (12:45)
[2018-01-15] MEDS: DULoxetine HCL 20 MG CAPSULE.DR (FP) PO SCH (12:45)
[2018-01-15] MEDS: HEPARIN NA (PORCINE) 5,000 UNITS/ML 1ML VIAL SQ SCH ×2 (12:45→23:34)
[2018-01-15] MEDS: metoPROLOL SUCCINATE 25 MG TAB.SR.24H (FP) PO SCH ×2 (12:46→23:35)
[2018-01-15] MEDS: amLODIPine BESYLATE 10 MG TABLET (FP) PO SCH (12:46)
[2018-01-15] MEDS: CLOPIDOGREL BISULFATE 75 MG TABLET (FP) PO SCH (12:46)
--- NOTE | 2018-01-15 14:58 | PN ---
Teaching Attending Note Name of Resident: Jethro Gomez ATTENDING PHYSICIAN STATEMENT I saw and evaluated the patient. I reviewed the resident's note and discussed the case with the resident. I agree with the resident's findings and plan as documented. SUBJECTIVE:resting comfortable OBJECTIVE: Last Vital Signs Temp Pulse Resp BP Pulse Ox 98.2 F 83 14 129/72 100 01/15/18 07:33 01/15/18 07:33 01/15/18 07:33 01/15/18 07:33 01/15/18 08:36 General resting comfortable. opens to eyes to verbal stimuli, not verbal at this time CV S1 S2 RRR no murmur/rub/gallop Lungs CTA B/L no wheezing/rales/rhonchi anteriorly Abdomen soft +suprapubic distention no rebound or guarding Extremities no pedal edema ASSESSMENT AND PLAN: 87 yo F with PMH HTN, CAD , CVA , dementia, dyslipidemia, DM, and frequent UTI presented to the ER for AMS and foul smelling urine 1. UTI- hx of pseudomonas UTI in 05/2017. on ceftazidime. ID consulted. f/u Cx 2. Acute metabolic encephalopathy- likely due to UTI. currently non verbal but as per notes does speak and more alert. head CT negative for acute pathology. will monitor mental status as infection is treated 3. Hyponatremia- dehdration. cont IVF 4. CAD- on asa/plavix 5. HTN- controlled. cont home medication 6. Dementia 7. DM- hold oral agents. cont iss and BGM 8. DVT ppx- hep sq
--- NOTE | 2018-01-15 17:59 | CON.ID ---
Consult Consult Specialty:: infectious diseases Reason for Consultation:: uti - History of Present Illness Chief Complaint: ams,foul urine smell History of Present Illness: patient cannot give history because of her medical condition history obtained from the daughter who is with the patient and the medical charts patient is being taken care by a managed care manager 87 year old female with a hx of CAD, dementia, DM, HTN, constipation, multiple UTIs presents for a 1 day hx of altered mental status that began at 1pm today. The patient's aid states that she is, at baseline, happy and talkative, being able to respond to commands despite a history of dementia. Earlier this afternoon, patient's behavior changed to being non-verbal and flailing her arms above her head slowly in the bed, not responding to verbal commands anymore. The aid reports this happening several times in the past, all of which were caused by urinary tract infections. 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 History of Recent Travel: No Home Medications - Allergies Allergies/Adverse Reactions: Allergies Allergy/AdvReac Type Severity Reaction Status Date / Time quetiapine [From Seroquel] Allergy Verified 01/14/18 19:51 ranolazine [From Ranexa] Allergy Verified 01/14/18 19:51 - Home Medications Home Medications: Ambulatory Orders Clopidogrel Bisulfate [Plavix -] 75 mg PO DAILY 12/23/15 Duloxetine HCl 20 mg PO DAILY 12/23/15 Ferrous Sulfate 325 mg PO DAILY 12/23/15 Metformin HCl 850 mg PO BID 12/23/15 Polyethylene Glycol 3350 [Miralax 119 gm Btl -] 17 gm PO TID 12/23/15 Docusate Sodium [Colace -] 100 mg PO BID #40 capsule 04/14/16 Atorvastatin Ca [Lipitor] 20 mg PO HS #30 tablet 08/17/16 Amlodipine Besylate [Norvasc -] 10 mg PO DAILY #30 tablet 06/13/17 Aspirin [ASA -] 81 mg PO DAILY #0 tab.chew 06/13/17 Calcium Carbonate - 1,300 mg PO BID #30 tablet 06/13/17 Lactobacillus Acidophilus [Bacid -] 1 tab PO DAILY tab 06/13/17 Metoprolol Succinate [Toprol XL -] 75 mg PO BID #180 tab.sr.24h 06/13/17 Acetaminophen [Tylenol] 650 mg PO QID PRN 06/17/17 Tamsulosin HCl [Flomax -] 0.8 mg PO DAILY@0830 #30 cap 06/23/17 Bacitracin - [Bacitracin Topical Ointment -] 1 applic TP TID #1 tube 07/03/17 Review of Systems Unable to obtain ROS, reason: unable to obtain Physical Exam Vital Signs: Vital Signs Temperature 98.2 F 01/15/18 07:33 Pulse Rate 83 01/15/18 07:33 Respiratory Rate 14 01/15/18 07:33 Blood Pressure 129/72 01/15/18 07:33 O2 Sat by Pulse Oximetry (%) 100 01/15/18 08:36 Constitutional: Yes: Other (lethargic,non verbal) Eyes: Yes: Conjunctiva Clear Cardiovascular: Yes: Regular Rate and Rhythm Respiratory: Yes: Regular, CTA Bilaterally Gastrointestinal: Yes: Normal Bowel Sounds, Soft Musculoskeletal: Yes: WNL Extremities: Yes: WNL Neurological: Yes: Lethargy, Other (non verbal) Psychiatric: Yes: Other Labs: CBC, BMP 01/15/18 06:08 01/15/18 06:08 Imaging - Results Chest X-ray: Report Reviewed, Image Reviewed Cat Scan: Report Reviewed, Image Reviewed Assessment/Plan patient with sever dementia coming to the er because of detoriation in mental status further and foul smelling urine patient currently lethargic and non verbal the chances of patient having infection are high which probably have led to this condition ams lethargy uti dehydration plan will start patient on abx hydration await for results to come back rest continue current mgmt
[2018-01-15] MEDS ORDERED: INSULIN (NOVOLOG) ASPART 100 UNITS/ML 10ML VIAL ONE (18:46)
--- NOTE | 2018-01-15 20:54 | PN ---
Physical Exam: SUBJECTIVE: Patient seen and examined at bedside. Pt poorly responsive and somnolent. Wakes to sternal rub and then to firm abdominal exam but is nonverbal. OBJECTIVE: Vital Signs Period Temp Pulse Resp BP Sys/Iniguez Pulse Ox Last 24 Hr 97.5 F-98.2 F 79-83 14-18 113-165/71-74 96-100 Limited exam. Pt nonverbal at this time. GENERAL: somnolent in no acute distress. HEAD: Normal with no signs of trauma. EYES: sclera anicteric, conjunctiva clear ENT: oropharynx clear without exudates, moist mucous membranes. NECK: Trachea midline, full range of motion, supple. LUNGS: Breath sounds equal, clear to auscultation bilaterally, no wheezes, no crackles, no accessory muscle use. HEART: Regular rate and rhythm, S1, S2 without murmur, rub or gallop. ABDOMEN: Soft, some supapubic tenderness, nondistended, normoactive bowel sounds , no guarding, no rebound, no hepatosplenomegaly, no masses. EXTREMITIES: 2+ pulses, warm, well-perfused, no edema. NEUROLOGICAL: uncooperative for exam PSYCH: nonverbal SKIN: Warm, dry, normal turgor, no rashes or lesions noted Laboratory Results - last 24 hr 01/14/18 01/14/18 01/14/18 21:00 21:00 21:00 WBC 7.4 D RBC 4.11 D Hgb 12.2 D Hct 35.9 D MCV 87.6 MCH 29.7 MCHC 34.0 RDW 13.5 D Plt Count 215 D MPV 8.5 D Neutrophils % 60.4 Lymphocytes % 27.6 Monocytes % 11.0 H Eosinophils % 0.8 Basophils % 0.2 Sodium 131 L Potassium 4.7 Chloride 98 Carbon Dioxide 23 Anion Gap 10 BUN 23 H Creatinine 0.9 Creat Clearance w eGFR 59.23 Random Glucose 250 H Calcium 8.8 Phosphorus Magnesium Total Bilirubin 0.3 D AST 9 L ALT 11 L Alkaline Phosphatase 97 Ammonia Troponin I < 0.02 Total Protein 7.4 Albumin 3.4 Urine Color Urine Appearance Urine pH Ur Specific [place] Urine Protein Urine Glucose (UA) Urine Ketones Urine Blood Urine Nitrite Urine Bilirubin Urine Urobilinogen Ur Leukocyte Esterase Urine WBC (Auto) Urine RBC (Auto) Ur Epithelial Cells Urine Bacteria 01/14/18 01/14/18 01/15/18 21:00 22:22 06:08 WBC 10.6 H D RBC 4.52 Hgb 13.7 D Hct 40.0 MCV 88.3 MCH 30.4 MCHC 34.4 RDW 13.6 Plt Count 205 MPV 8.8 Neutrophils % Lymphocytes % Monocytes % Eosinophils % Basophils % Sodium Potassium Chloride Carbon Dioxide Anion Gap BUN Creatinine Creat Clearance w eGFR Random Glucose Calcium Phosphorus Magnesium Total Bilirubin AST ALT Alkaline Phosphatase Ammonia 41.36 H Troponin I Total Protein Albumin Urine Color Dkyellow Urine Appearance Turbid Urine pH 5.0 Ur Specific [place] 1.010 Urine Protein 2+ H Urine Glucose (UA) Negative Urine Ketones Negative Urine Blood 1+ H Urine Nitrite Negative Urine Bilirubin Negative Urine Urobilinogen Negative Ur Leukocyte Esterase 3+ H Urine WBC (Auto) 517 Urine RBC (Auto) 16 Ur Epithelial Cells Rare Urine Bacteria Rare 01/15/18 06:08 WBC RBC Hgb Hct MCV MCH MCHC RDW Plt Count MPV Neutrophils % Lymphocytes % Monocytes % Eosinophils % Basophils % Sodium 133 L Potassium 4.6 Chloride 103 Carbon Dioxide 23 Anion Gap 7 L BUN 22 H Creatinine 0.8 Creat Clearance w eGFR Random Glucose 161 H Calcium 9.0 Phosphorus 3.5 Magnesium 1.9 Total Bilirubin AST ALT Alkaline Phosphatase Ammonia Troponin I Total Protein Albumin Urine Color Urine Appearance Urine pH Ur Specific [place] Urine Protein Urine Glucose (UA) Urine Ketones Urine Blood Urine Nitrite Urine Bilirubin Urine Urobilinogen Ur Leukocyte Esterase Urine WBC (Auto) Urine RBC (Auto) Ur Epithelial Cells Urine Bacteria Active Medications Generic Name Dose Route Start Last Admin Trade Name Freq PRN Reason Stop Dose Admin Acetaminophen 650 mg 01/14/18 23:33 Tylenol - PO QID PRN FEVER Amlodipine Besylate 10 mg 01/15/18 10:00 01/15/18 12:46 Norvasc - PO 10 mg DAILY [facility] Administration Aspirin 81 mg 01/15/18 10:00 01/15/18 12:43 Asa - PO 81 mg DAILY [facility] Administration Atorvastatin Calcium 20 mg 01/15/18 22:00 Lipitor - PO [facility] Bacitracin 1 applic 01/15/18 06:00 01/15/18 18:35 Bacitracin - TP Not Given TID [facility] Calcium Carbonate 1,300 mg 01/15/18 10:00 01/15/18 12:44 Calcium Carbonate - PO 1,300 mg BID [facility] Administration Clopidogrel Bisulfate 75 mg 01/15/18 10:00 01/15/18 12:46 Plavix - PO 75 mg DAILY [facility] Administration Docusate Sodium 100 mg 01/15/18 10:00 01/15/18 12:44 Colace - PO 100 mg BID [facility] Administration Duloxetine HCl 20 mg 01/15/18 10:00 01/15/18 12:45 Cymbalta - PO 20 mg DAILY [facility] Administration Ferrous Sulfate 325 mg 01/15/18 10:00 01/15/18 12:45 Feosol - PO 325 mg DAILY [facility] Administration Heparin Sodium (Porcine) 5,000 unit 01/15/18 10:00 01/15/18 12:45 Heparin - SQ 5,000 unit BID [facility] Administration Sodium Chloride 1,000 mls @ 75 mls/hr 01/14/18 20:15 01/14/18 21:04 Normal Saline - IV 75 mls/hr ASDIR [facility] Administration Sodium Chloride 1,000 mls @ 50 mls/hr 01/15/18 00:18 Normal Saline - IV ASDIR SEAN Piperacillin Sod/Tazobactam 50 mls @ 100 mls/hr 01/16/18 02:00 Sod 3.375 gm/ Dextrose IVPB Q8H-IV [facility] Protocol Insulin Aspart 0 vial 01/15/18 07:00 01/15/18 18:46 Novolog Vial Sliding Scale - SQ 2 unit ACHS [facility] Administration Protocol Lactobacillus Acidophilus 1 tab 01/15/18 10:00 01/15/18 12:43 Bacid - PO 1 tab DAILY [facility] Administration Metoprolol Succinate 75 mg 01/15/18 10:00 01/15/18 12:46 Toprol Xl - PO 75 mg BID [facility] Administration Polyethylene Glycol 17 gm 01/15/18 06:00 01/15/18 18:35 Miralax (For Daily Use) - PO Not Given TID [facility] Tamsulosin HCl 0.8 mg 01/15/18 08:30 01/15/18 12:42 Flomax - PO 0.8 mg DAILY@0830 [facility] Administration ASSESSMENT/PLAN: 87 year old female with a hx of CAD, dementia, DM, HTN, constipation, multiple UTIs presents for a 1 day hx of altered mental status suspect for urinary tract infection #Altered Mental Status on Dementia -likely 2/2 urinary tract infection -patient given 1gm rocephin in ED -hx of ESBL E coli and Pseudomonas in urine -IV NS @ 50cc/hr -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 Ritchie appreciated -isolation precautions -fall precautions -tamsulosin -Note: per nurse, pt's daughter came to visit and stated this is very typical of the pt as she has had numerous UTI's in the past and responded similarly. -Pt seen by Speech Pathology. Recs appreciated. #Diabetes Mellitus -glucose was 280 on presentation -BGMs ACHS -ISS ACHS #Hypertension -continue home toprol -continue home amlodipine #Hx CAD -continue home asa/plavix -confirm home medications #FEN -IV NS @ 50cc/hr -lytes wnl -dysphagia puree crushed with apple sauce #PPx -hep subQ #Dispo -admit med-surg Jethro Gomez MD PGY-1 IM Visit type - Emergency Visit Emergency Visit: Yes ED Registration Date: 01/14/18 Care time: The patient presented to the Emergency Department on the above date and was hospitalized for further evaluation of their emergent condition. - New Patient This patient is new to me today: Yes Date on this admission: 01/15/18 - Critical Care Critical Care patient: No - Discharge Referral Referred to [facility] Med P.C.: No
[2018-01-15] MEDS ORDERED: PIPERACILLIN/TAZOB 3.375 GM 3.375 GM/50 ML BAG IVPB ONE (23:32)
[2018-01-15] MEDS ORDERED: DOCUSATE SODIUM 100 MG CAPSULE (FP) PO ONE (23:32)
[2018-01-15] MEDS: ATORVASTATIN CA 20 MG TABLET (FP) PO SCH (23:35)
--- NOTE | 2018-01-15 23:48 | EKG ---
Test Reason : Blood Pressure : / mmHG Vent. Rate : 090 BPM Atrial Rate : 090 BPM P-R Int : 200 ms QRS Dur : 096 ms QT Int : 376 ms P-R-T Axes : 029 -41 061 degrees QTc Int : 459 ms NORMAL SINUS RHYTHM LEFT AXIS DEVIATION ABNORMAL ECG WHEN COMPARED WITH ECG OF 18-JUN-2017 12:14, NO SIGNIFICANT CHANGE WAS FOUND Confirmed by JOSEMANUEL VINCENT MD ([id number]) on 01/15/2018 11:47:49 PM Referred By: Confirmed By:JOSEMANUEL VINCENT MD
[2018-01-16] MEDS: PIPERACILLIN/TAZOB 3.375 GM 3.375 GM in DEXTROSE 5%-WATER - 50 ML IVPB SCH ×3 (02:25→17:41)
[2018-01-16] MEDS: SODIUM CHLORIDE 1,000 ML IV SCH (02:30)
[2018-01-16] MEDS: POLYETHYLENE GLYCOL 3350 119 GM BTL PO SCH ×3 (06:57→22:52)
[2018-01-16] MEDS: INSULIN SLIDING SCALE (NOVOLOG) 1 VIAL SQ SCH ×6 (06:58→22:54)
[2018-01-16] MEDS: BACITRACIN 15 GM TUBE TOPICAL OINTMENT TP SCH ×4 (07:00→22:52)
[2018-01-16] MEDS: CALCIUM CARBONATE 650 MG TABLET PO SCH ×3 (08:20→22:53)
[2018-01-16] MEDS: cefTAZidime PENTAHYDRATE 1 GM/50ML PRE-DOCKED (RESTRICTED TO ID) IVPB SCH (08:20)
--- NOTE | 2018-01-16 08:59 | PN ---
Physical Exam: SUBJECTIVE: Patient seen and examined at bedside. No acute events. Pt is drastically improved today. Baseline dementia limited exam, but pt is conversive today and was singing in bed. OBJECTIVE: Vital Signs Period Temp Pulse Resp BP Sys/Iniguez Pulse Ox Last 24 Hr 98.1 F-100.6 F 71-86 16-20 90-121/50-71 98-100 GENERAL: The patient is awake, alert, and fully oriented, in no acute distress. HEAD: Normal with no signs of trauma. EYES: PERRL, extraocular movements intact, sclera anicteric, conjunctiva clear. No ptosis. ENT: Ears normal, nares patent, oropharynx clear without exudates, moist mucous membranes. NECK: Trachea midline, full range of motion, supple. LUNGS: Breath sounds equal, clear to auscultation bilaterally, no wheezes, no crackles, no accessory muscle use. HEART: Regular rate and rhythm, S1, S2 with 3/6 systolic murmur LUSB, no rub or gallop. ABDOMEN: Soft, nontender, nondistended, normoactive bowel sounds, no guarding, no rebound, no hepatosplenomegaly, no masses. EXTREMITIES: 2+ pulses, warm, well-perfused, no edema. NEUROLOGICAL: Cranial nerves II through XII grossly intact. Normal speech, gait not observed. PSYCH: Normal mood, normal affect. SKIN: Warm, dry, normal turgor, no rashes or lesions noted Active Medications Generic Name Dose Route Start Last Admin Trade Name Freq PRN Reason Stop Dose Admin Acetaminophen 650 mg 01/14/18 23:33 Tylenol - PO QID PRN FEVER Amlodipine Besylate 10 mg 01/15/18 10:00 01/15/18 12:46 Norvasc - PO 10 mg DAILY [facility] Administration Aspirin 81 mg 01/15/18 10:00 01/15/18 12:43 Asa - PO 81 mg DAILY [facility] Administration Atorvastatin Calcium 20 mg 01/15/18 22:00 01/15/18 23:35 Lipitor - PO 20 mg HS [facility] Administration Bacitracin 1 applic 01/15/18 06:00 01/16/18 08:20 Bacitracin - TP Not Given TID [facility] Calcium Carbonate 1,300 mg 01/15/18 10:00 01/16/18 08:20 Calcium Carbonate - PO Not Given BID [facility] Clopidogrel Bisulfate 75 mg 01/15/18 10:00 01/15/18 12:46 Plavix - PO 75 mg DAILY [facility] Administration Docusate Sodium 100 mg 01/15/18 10:00 01/15/18 23:34 Colace - PO 100 mg BID [facility] Administration Duloxetine HCl 20 mg 01/15/18 10:00 01/15/18 12:45 Cymbalta - PO 20 mg DAILY [facility] Administration Ferrous Sulfate 325 mg 01/15/18 10:00 01/15/18 12:45 Feosol - PO 325 mg DAILY [facility] Administration Heparin Sodium (Porcine) 5,000 unit 01/15/18 10:00 01/15/18 23:34 Heparin - SQ 5,000 unit BID [facility] Administration Sodium Chloride 1,000 mls @ 75 mls/hr 01/14/18 20:15 01/16/18 02:30 Normal Saline - IV 75 mls/hr ASDIR [facility] Administration Sodium Chloride 1,000 mls @ 50 mls/hr 01/15/18 00:18 Normal Saline - IV ASDIR SEAN Piperacillin Sod/Tazobactam 50 mls @ 100 mls/hr 01/16/18 02:00 01/16/18 02:25 Sod 3.375 gm/ Dextrose IVPB 100 mls/hr Q8H-IV [facility] Administration Protocol Insulin Aspart 0 vial 01/15/18 07:00 01/16/18 08:20 Novolog Vial Sliding Scale - SQ Not Given ACHS [facility] Protocol Lactobacillus Acidophilus 1 tab 01/15/18 10:00 01/15/18 12:43 Bacid - PO 1 tab DAILY [facility] Administration Metoprolol Succinate 75 mg 01/15/18 10:00 01/15/18 23:35 Toprol Xl - PO 75 mg BID [facility] Administration Polyethylene Glycol 17 gm 01/15/18 06:00 01/16/18 06:57 Miralax (For Daily Use) - PO 17 grams TID [facility] Administration Tamsulosin HCl 0.8 mg 01/15/18 08:30 01/15/18 12:42 Flomax - PO 0.8 mg DAILY@0830 [facility] Administration ASSESSMENT/PLAN: 87 year old female with a hx of CAD, dementia, DM, HTN, constipation, multiple UTIs presents for a 1 day hx of altered mental status suspect for urinary tract infection #Altered Mental Status on Dementia -likely 2/2 urinary tract infection -patient given 1gm rocephin in ED -hx of ESBL E coli and Pseudomonas in urine -IV NS @ 50cc/hr -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 Ritchie appreciated -isolation precautions -fall precautions -tamsulosin -Note: per nurse, pt's daughter came to visit and stated this is very typical of the pt as she has had numerous UTI's in the past and responded similarly. -Pt seen by Speech Pathology. Recs appreciated. #UTI - +3 LE -pending UCx -Hx Pseudomonas and ESBL #Diabetes Mellitus -glucose was 280 on presentation -BGMs ACHS -ISS ACHS #Hypertension -continue home toprol -continue home amlodipine #Hx CAD -continue home asa/plavix -confirm home medications #FEN -IV NS @ 50cc/hr -lytes wnl -dysphagia puree crushed with apple sauce #PPx -hep subQ #Dispo -admit med-surg Jethro Gomez MD PGY-1 IM Visit type - Emergency Visit Emergency Visit: No - New Patient This patient is new to me today: No - Critical Care Critical Care patient: No - Discharge Referral Referred to [facility] Med P.C.: No
[2018-01-16] MEDS ORDERED: DEXTROSE 5%-WATER - 50 ML IVPB ONE ×2 (10:03→17:37)
[2018-01-16] MEDS ORDERED: PT OWN MED DRAWER 7, Y5N ONE ×2 (10:03→21:28)
[2018-01-16] MEDS ORDERED: PIPERACILLIN/TAZOBACTAM 3.375 GM VIAL IVPB ONE ×2 (10:03→17:37)
[2018-01-16] MEDS: metoPROLOL SUCCINATE 25 MG TAB.SR.24H (FP) PO SCH ×2 (10:17→22:52)
[2018-01-16] MEDS: TAMSULOSIN HCL 0.4 MG CAP.ER.24H (FP) PO SCH (10:18)
[2018-01-16] MEDS: LACTOBACILLUS ACIDOPHILUS 1 TABLET PO SCH (10:18)
[2018-01-16] MEDS: DULoxetine HCL 20 MG CAPSULE.DR (FP) PO SCH (10:18)
[2018-01-16] MEDS: DOCUSATE SODIUM 100 MG CAPSULE (FP) PO SCH ×2 (10:18→22:52)
[2018-01-16] MEDS: amLODIPine BESYLATE 10 MG TABLET (FP) PO SCH (10:18)
[2018-01-16] MEDS: ASPIRIN 81 MG CHEWABLE TABLETS PO SCH (10:18)
[2018-01-16] MEDS: HEPARIN NA (PORCINE) 5,000 UNITS/ML 1ML VIAL SQ SCH ×2 (10:18→22:52)
[2018-01-16] MEDS: CLOPIDOGREL BISULFATE 75 MG TABLET (FP) PO SCH (10:18)
[2018-01-16] MEDS: FERROUS SO4 325 MG TABLET (FP) PO SCH (10:18)
[2018-01-16 11:19] LABS: BASO % 0.1 % (0-2.0); EOS % 1.1 % (0-4.5); HEMATOCRIT 35.4 % (32.4-45.2); HEMOGLOBIN 11.8 GM/dL (10.7-15.3); LYMPH % 20.5 % (8-40); MCH 29.7 pg (25.7-33.7); MCHC 33.4 g/dl (32.0-36.0); MEAN CELL VOLUME 89.1 fl (80-96); MEAN PLT VOLUME 9.2 fl (7.5-11.1); MONO % 8.6 % (3.8-10.2); NEUT % 69.7 % (42.8-82.8); PLATELET COUNT 195 K/MM3 (134-434); RBC 3.97 M/mm3 (3.60-5.2); RDW 13.9 % (11.6-15.6); WHITE BLOOD COUNT 7.1 K/mm3 (4.0-10.0)
[2018-01-16 11:37] LABS: ANION GAP 9 (8-16); BLOOD UREA NITROGEN 24 mg/dL (7-18); CALCIUM 8.6 mg/dL (8.5-10.1); CHLORIDE 103 mmol/L (98-107); CO2 25 mmol/L (21-32); GLUCOSE,RANDOM 205 mg/dL (74-106); POTASSIUM 4.1 mmol/L (3.5-5.1); SODIUM 137 mmol/L (136-145)
--- NOTE | 2018-01-16 13:59 | PN ---
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, Physician History of Present Illness: patient stable no new issues - Current Medication List Current Medications: Active Medications Acetaminophen (Tylenol -) 650 mg PO QID PRN PRN Reason: FEVER Amlodipine Besylate (Norvasc -) 10 mg PO DAILY [facility] Last Admin: 01/16/18 10:18 Dose: 10 mg Aspirin (Asa -) 81 mg PO DAILY [facility] Last Admin: 01/16/18 10:18 Dose: 81 mg Atorvastatin Calcium (Lipitor -) 20 mg PO HS [facility] Last Admin: 01/15/18 23:35 Dose: 20 mg Bacitracin (Bacitracin -) 1 applic TP TID [facility] Last Admin: 01/16/18 08:20 Dose: Not Given Calcium Carbonate (Calcium Carbonate -) 1,300 mg PO BID [facility] Last Admin: 01/16/18 10:19 Dose: 1,300 mg Clopidogrel Bisulfate (Plavix -) 75 mg PO DAILY [facility] Last Admin: 01/16/18 10:18 Dose: 75 mg Docusate Sodium (Colace -) 100 mg PO BID [facility] Last Admin: 01/16/18 10:18 Dose: 100 mg Duloxetine HCl (Cymbalta -) 20 mg PO DAILY [facility] Last Admin: 01/16/18 10:18 Dose: 20 mg Ferrous Sulfate (Feosol -) 325 mg PO DAILY [facility] Last Admin: 01/16/18 10:18 Dose: 325 mg Heparin Sodium (Porcine) (Heparin -) 5,000 unit SQ BID [facility] Last Admin: 01/16/18 10:18 Dose: 5,000 unit Sodium Chloride (Normal Saline -) 1,000 mls @ 75 mls/hr IV ASDIR [facility] Last Admin: 01/16/18 02:30 Dose: 75 mls/hr Sodium Chloride (Normal Saline -) 1,000 mls @ 50 mls/hr IV ASDIR SEAN Piperacillin Sod/Tazobactam (Sod 3.375 gm/ Dextrose) 50 mls @ 100 mls/hr IVPB Q8H-IV SE[facility] PRN Reason: Protocol Last Admin: 01/16/18 10:08 Dose: 100 mls/hr Insulin Aspart (Novolog Vial Sliding Scale -) 0 vial SQ ACHS SEAN PRN Reason: Protocol Last Admin: 01/16/18 11:32 Dose: 6 unit Lactobacillus Acidophilus (Bacid -) 1 tab PO DAILY [facility] Last Admin: 01/16/18 10:18 Dose: 1 tab Metoprolol Succinate (Toprol Xl -) 75 mg PO BID [facility] Last Admin: 01/16/18 10:17 Dose: 75 mg Polyethylene Glycol (Miralax (For Daily Use) -) 17 gm PO TID [facility] Last Admin: 01/16/18 06:57 Dose: 17 grams Tamsulosin HCl (Flomax -) 0.8 mg PO DAILY@0830 [facility] Last Admin: 01/16/18 10:18 Dose: 0.8 mg - Objective Vital Signs: Vital Signs Temperature 98.4 F 01/16/18 10:16 Pulse Rate 70 01/16/18 10:16 Respiratory Rate 18 01/16/18 10:16 Blood Pressure 135/63 01/16/18 10:16 O2 Sat by Pulse Oximetry (%) 98 01/16/18 09:00 Constitutional: Yes: No Distress, Calm, Thin Cardiovascular: Yes: Regular Rate and Rhythm Respiratory: Yes: Regular, CTA Bilaterally Genitourinary: Yes: [place] Present Musculoskeletal: Yes: WNL Extremities: Yes: WNL Neurological: Yes: Other Labs: CBC, BMP 01/16/18 10:50 01/16/18 10:50 Assessment/Plan ams lethargy uti dehydration plan continue abx await for identification and sensitivites of the bacteria hydration rest as per the team
--- NOTE | 2018-01-16 15:27 | PN ---
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, [employer] - Note 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: Selected Entries 01/16/18 01/16/18 01/16/18 01:04 02:30 05:54 Breakfast Lunch Temperature 98.3 F 100.6 F H 98.5 F 01/16/18 01/16/18 01/16/18 09:50 10:16 14:29 Breakfast 50% Lunch 50% Temperature 98.4 F 97.6 F Laboratory Tests 01/15/18 01/16/18 06:08 10:50 WBC 10.6 H D 7.1 D Pureed diet.
[2018-01-16 16:55] VITALS: BMI 19.7
--- NOTE | 2018-01-16 17:27 | PN ---
Teaching Attending Note Name of Resident: Jethro Gomez ATTENDING PHYSICIAN STATEMENT I saw and evaluated the patient. I reviewed the resident's note and discussed the case with the resident. I agree with the resident's findings and plan as documented with exceptions below. SUBJECTIVE: Patient seen and examined. pleasant, oriented to self only, no pain or complaints. OBJECTIVE: Vital Signs Period Temp Pulse Resp BP Sys/Iniguez Pulse Ox Last 24 Hr 97.6 F-100.6 F 64-86 16-20 90-135/50-71 98-100 Intake & Output 01/13/18 01/14/18 01/15/18 01/16/18 23:59 23:59 23:59 23:59 Intake Total 300 Balance 300 Weight 110 lb 108 lb general: pleasant, in bed in no acute distress Chest: Poor effort, no rales or wheezing abdomen:soft, NT, ND, no suprapubic or CVA tenderness Extremities: no edema Home Medication List Medication Instructions Recorded Confirmed Type Duloxetine HCl 20 mg PO DAILY 12/23/15 01/16/18 History Ferrous Sulfate 325 mg PO DAILY 12/23/15 01/16/18 History Metformin HCl 850 mg PO BID 12/23/15 01/16/18 History Polyethylene Glycol 3350 [Miralax 17 gm PO TID 12/23/15 01/16/18 History 119 gm Btl -] Amlodipine Besylate [Norvasc -] 10 mg PO DAILY 01/16/18 01/16/18 History Atorvastatin Ca [Lipitor] 20 mg PO HS 01/16/18 01/16/18 History Clopidogrel Bisulfate [Plavix] 75 mg PO DAILY 01/16/18 01/16/18 History Active Medications Generic Name Dose Route Start Last Admin Trade Name Freq PRN Reason Stop Dose Admin Acetaminophen 650 mg 01/14/18 23:33 Tylenol - PO QID PRN FEVER Amlodipine Besylate 10 mg 01/15/18 10:00 01/16/18 10:18 Norvasc - PO 10 mg DAILY [facility] Administration Aspirin 81 mg 01/15/18 10:00 01/16/18 10:18 Asa - PO 81 mg DAILY [facility] Administration Atorvastatin Calcium 20 mg 01/15/18 22:00 01/15/18 23:35 Lipitor - PO 20 mg HS [facility] Administration Bacitracin 1 applic 01/15/18 06:00 01/16/18 14:22 Bacitracin - TP 1 applic TID SEAN Administration Calcium Carbonate 1,300 mg 01/15/18 10:00 01/16/18 10:19 Calcium Carbonate - PO 1,300 mg BID SEAN Administration Clopidogrel Bisulfate 75 mg 01/15/18 10:00 01/16/18 10:18 Plavix - PO 75 mg DAILY [facility] Administration Docusate Sodium 100 mg 01/15/18 10:00 01/16/18 10:18 Colace - PO 100 mg BID SE[facility] Administration Duloxetine HCl 20 mg 01/15/18 10:00 01/16/18 10:18 Cymbalta - PO 20 mg DAILY [facility] Administration Ferrous Sulfate 325 mg 01/15/18 10:00 01/16/18 10:18 Feosol - PO 325 mg DAILY [facility] Administration Heparin Sodium (Porcine) 5,000 unit 01/15/18 10:00 01/16/18 10:18 Heparin - SQ 5,000 unit BID SEAN Administration Sodium Chloride 1,000 mls @ 75 mls/hr 01/14/18 20:15 01/16/18 02:30 Normal Saline - IV 75 mls/hr ASDIR SEAN Administration Sodium Chloride 1,000 mls @ 50 mls/hr 01/15/18 00:18 Normal Saline - IV ASDIR SEAN Piperacillin Sod/Tazobactam 50 mls @ 100 mls/hr 01/16/18 02:00 01/16/18 10:08 Sod 3.375 gm/ Dextrose IVPB 100 mls/hr Q8H-IV SEAN Administration Protocol Insulin Aspart 0 vial 01/15/18 07:00 01/16/18 16:55 Novolog Vial Sliding Scale - SQ Not Given ACHS [facility] Protocol Lactobacillus Acidophilus 1 tab 01/15/18 10:00 01/16/18 10:18 Bacid - PO 1 tab DAILY [facility] Administration Metoprolol Succinate 75 mg 01/15/18 10:00 01/16/18 10:17 Toprol Xl - PO 75 mg BID SEAN Administration Polyethylene Glycol 17 gm 01/15/18 06:00 01/16/18 14:22 Miralax (For Daily Use) - PO 17 grams TID SEAN Administration Tamsulosin HCl 0.8 mg 01/15/18 08:30 01/16/18 10:18 Flomax - PO 0.8 mg DAILY@0830 SEAN Administration Laboratory Results - last 24 hr 05/21/18 05/21/18 05/22/18 18:13 20:03 05:30 WBC RBC Hgb Hct MCV MCH MCHC RDW Plt Count MPV Neutrophils % Lymphocytes % Monocytes % Eosinophils % Basophils % Nucleated RBC % Sodium Potassium Chloride Carbon Dioxide Anion Gap BUN Creatinine POC Glucometer [phone] 174 Random Glucose Calcium 01/16/18 01/16/18 01/16/18 10:50 10:50 11:24 WBC 7.1 D RBC 3.97 Hgb 11.8 D Hct 35.4 MCV 89.1 MCH 29.7 MCHC 33.4 RDW 13.9 Plt Count 195 MPV 9.2 Neutrophils % 69.7 Lymphocytes % 20.5 D Monocytes % 8.6 Eosinophils % 1.1 Basophils % 0.1 Nucleated RBC % 0 Sodium 137 Potassium 4.1 Chloride 103 Carbon Dioxide 25 Anion Gap 9 BUN 24 H Creatinine 1.0 POC Glucometer 256 Random Glucose 205 H Calcium 8.6 01/16/18 16:54 WBC RBC Hgb Hct MCV MCH MCHC RDW Plt Count MPV Neutrophils % Lymphocytes % Monocytes % Eosinophils % Basophils % Nucleated RBC % Sodium Potassium Chloride Carbon Dioxide Anion Gap BUN Creatinine POC Glucometer 117 Random Glucose Calcium Microbiology 01/14/18 22:22 Urine - Urine [place] Urine Culture - Preliminary Lactose Fermenting Neg Bacilli Non Lactose Fermenting Gnb ASSESSMENT AND PLAN: 87 yo F with PMH HTN, CAD , CVA , dementia, dyslipidemia, DM, and frequent UTI presented to the ER for AMS and foul smelling urine -Acute UTI, prior urine cultures with h/o ESBL/Pseudomonas -Acute metabolic toxic excephalopathy, from above, improved today -Hypovolumic hyponatremia -CAD -HTN -Dementia -NIDDM Plan: Zosyn day 2, ID input noted, follow up urine cultures. Mental status better. D/c IVF in 24 hours if no concerns. Continue ASA/plavix/amlodipine. DVTPPX with heparin ISS, diabetic diet Dispo in 1-2 days pending urine cultures and clinical improvement.
[2018-01-16] MEDS: ATORVASTATIN CA 20 MG TABLET (FP) PO SCH (22:52)
[2018-01-17] MEDS ORDERED: DEXTROSE 5%-WATER - 50 ML IVPB ONE ×3 (01:13→17:30)
[2018-01-17] MEDS ORDERED: PIPERACILLIN/TAZOBACTAM 3.375 GM VIAL IVPB ONE ×3 (01:13→17:29)
[2018-01-17] MEDS: SODIUM CHLORIDE 1,000 ML IV SCH ×2 (01:21→17:38)
[2018-01-17] MEDS: PIPERACILLIN/TAZOB 3.375 GM 3.375 GM in DEXTROSE 5%-WATER - 50 ML IVPB SCH ×3 (01:21→17:37)
[2018-01-17] MEDS: INSULIN SLIDING SCALE (NOVOLOG) 1 VIAL SQ SCH ×4 (06:36→22:19)
[2018-01-17] MEDS: POLYETHYLENE GLYCOL 3350 119 GM BTL PO SCH ×3 (06:36→22:18)
[2018-01-17] MEDS: BACITRACIN 15 GM TUBE TOPICAL OINTMENT TP SCH ×3 (06:36→22:16)
[2018-01-17 08:58] LABS: BASO % 0.1 % (0-2.0); HEMATOCRIT 33.9 % (32.4-45.2); HEMOGLOBIN 11.5 GM/dL (10.7-15.3); LYMPH % 22.2 % (8-40); MCHC 33.8 g/dl (32.0-36.0); MEAN CELL VOLUME 88.8 fl (80-96); MEAN PLT VOLUME 8.9 fl (7.5-11.1); NEUT % 64.7 % (42.8-82.8); PLATELET COUNT 212 K/MM3 (134-434); RBC 3.82 M/mm3 (3.60-5.2); RDW 13.8 % (11.6-15.6)
[2018-01-17 09:31] LABS: CHLORIDE 108 mmol/L (98-107); POTASSIUM 4.2 mmol/L (3.5-5.1); SODIUM 141 mmol/L (136-145)
[2018-01-17 09:37] LABS: ANION GAP 8 (8-16); BLOOD UREA NITROGEN 18 mg/dL (7-18); CALCIUM 8.6 mg/dL (8.5-10.1); CO2 25 mmol/L (21-32); CREATININE 0.8 mg/dL (0.55-1.02); GLUCOSE,RANDOM 114 mg/dL (74-106)
[2018-01-17] MEDS ORDERED: PT OWN MED DRAWER 7, Y5N ONE ×2 (11:15→22:26)
[2018-01-17] MEDS: FERROUS SO4 325 MG TABLET (FP) PO SCH ×2 (11:23→13:19)
[2018-01-17] MEDS: TAMSULOSIN HCL 0.4 MG CAP.ER.24H (FP) PO SCH ×2 (11:24→13:18)
[2018-01-17] MEDS: metoPROLOL SUCCINATE 25 MG TAB.SR.24H (FP) PO SCH ×2 (11:24→22:15)
[2018-01-17] MEDS: CLOPIDOGREL BISULFATE 75 MG TABLET (FP) PO SCH (11:24)
[2018-01-17] MEDS: LACTOBACILLUS ACIDOPHILUS 1 TABLET PO SCH (11:25)
[2018-01-17] MEDS: CALCIUM CARBONATE 650 MG TABLET PO SCH ×2 (11:25→23:04)
[2018-01-17] MEDS: ASPIRIN 81 MG CHEWABLE TABLETS PO SCH (11:25)
[2018-01-17] MEDS: HEPARIN NA (PORCINE) 5,000 UNITS/ML 1ML VIAL SQ SCH ×2 (11:27→22:15)
[2018-01-17] MEDS: amLODIPine BESYLATE 10 MG TABLET (FP) PO SCH (11:27)
[2018-01-17] MEDS: DOCUSATE SODIUM 100 MG CAPSULE (FP) PO SCH ×2 (11:27→22:14)
[2018-01-17] MEDS: DULoxetine HCL 20 MG CAPSULE.DR (FP) PO SCH ×2 (11:28→13:19)
--- NOTE | 2018-01-17 12:54 | PN ---
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, Physician History of Present Illness: doing well no issues - Current Medication List Current Medications: Active Medications Acetaminophen (Tylenol -) 650 mg PO QID PRN PRN Reason: FEVER Amlodipine Besylate (Norvasc -) 10 mg PO DAILY [facility] Last Admin: 01/17/18 11:27 Dose: 10 mg Aspirin (Asa -) 81 mg PO DAILY [facility] Last Admin: 01/17/18 11:25 Dose: 81 mg Atorvastatin Calcium (Lipitor -) 20 mg PO HS [facility] Last Admin: 01/16/18 22:52 Dose: 20 mg Bacitracin (Bacitracin -) 1 applic TP TID [facility] Last Admin: 01/17/18 06:36 Dose: 1 applic Calcium Carbonate (Calcium Carbonate -) 1,300 mg PO BID [facility] Last Admin: 01/17/18 11:25 Dose: 1,300 mg Clopidogrel Bisulfate (Plavix -) 75 mg PO DAILY [facility] Last Admin: 01/17/18 11:24 Dose: 75 mg Docusate Sodium (Colace -) 100 mg PO BID [facility] Last Admin: 01/17/18 11:27 Dose: 100 mg Duloxetine HCl (Cymbalta -) 20 mg PO DAILY [facility] Last Admin: 01/17/18 11:28 Dose: 20 mg Ferrous Sulfate (Feosol -) 325 mg PO DAILY [facility] Last Admin: 01/17/18 11:23 Dose: 325 mg Heparin Sodium (Porcine) (Heparin -) 5,000 unit SQ BID [facility] Last Admin: 01/17/18 11:27 Dose: 5,000 unit Sodium Chloride (Normal Saline -) 1,000 mls @ 75 mls/hr IV ASDIR [facility] Last Admin: 01/17/18 01:21 Dose: 75 mls/hr Sodium Chloride (Normal Saline -) 1,000 mls @ 50 mls/hr IV ASDIR [facility] Piperacillin Sod/Tazobactam (Sod 3.375 gm/ Dextrose) 50 mls @ 100 mls/hr IVPB Q8H-IV [facility]; Protocol Last Admin: 01/17/18 11:21 Dose: 100 mls/hr Insulin Aspart (Novolog Vial Sliding Scale -) 0 vial SQ ACHS [facility]; Protocol Last Admin: 01/17/18 06:36 Dose: Not Given Lactobacillus Acidophilus (Bacid -) 1 tab PO DAILY [facility] Last Admin: 05/23/18 11:25 Dose: 1 tab Metoprolol Succinate (Toprol Xl -) 75 mg PO BID [facility] Last Admin: 01/17/18 11:24 Dose: 75 mg Polyethylene Glycol (Miralax (For Daily Use) -) 17 gm PO TID [facility] Last Admin: 01/17/18 06:36 Dose: Not Given Tamsulosin HCl (Flomax -) 0.8 mg PO DAILY@0830 [facility] Last Admin: 01/17/18 11:24 Dose: 0.8 mg - Objective Vital Signs: Vital Signs Temperature 98 F 01/17/18 12:08 Pulse Rate 70 01/17/18 12:08 Respiratory Rate 18 01/17/18 12:08 Blood Pressure 157/54 01/17/18 12:08 O2 Sat by Pulse Oximetry (%) 99 01/16/18 22:00 Constitutional: Yes: No Distress, Calm Cardiovascular: Yes: Regular Rate and Rhythm Respiratory: Yes: Regular, CTA Bilaterally Gastrointestinal: Yes: Normal Bowel Sounds, Soft Musculoskeletal: Yes: WNL Extremities: Yes: WNL Neurological: Yes: Alert, Other Psychiatric: Yes: Other Labs: CBC, BMP 01/17/18 08:39 01/17/18 08:46 Assessment/Plan ams lethargy uti dehydration plan one organism is esbl other organism awaited will change to ertapenam rest continue nutrition
--- NOTE | 2018-01-17 18:21 | PN ---
Physical Exam: SUBJECTIVE: Patient seen and examined at bedside. No acute events. OBJECTIVE: Vital Signs Period Temp Pulse Resp BP Sys/Iniguez Pulse Ox Last 24 Hr 97.6 F-98.4 F 69-70 18-18 142-157/54-74 99 GENERAL: The patient is awake, alert, and fully oriented, in no acute distress. HEAD: Normal with no signs of trauma. EYES: PERRL, extraocular movements intact, sclera anicteric, conjunctiva clear. No ptosis. ENT: Ears normal, nares patent, oropharynx clear without exudates, moist mucous membranes. NECK: Trachea midline, full range of motion, supple. LUNGS: Breath sounds equal, clear to auscultation bilaterally, no wheezes, no crackles, no accessory muscle use. HEART: Regular rate and rhythm, S1, S2 with 3/6 systolic murmur LUSB, no rub or gallop. ABDOMEN: Soft, nontender, nondistended, normoactive bowel sounds, no guarding, no rebound, no hepatosplenomegaly, no masses. EXTREMITIES: 2+ pulses, warm, well-perfused, no edema. NEUROLOGICAL: Cranial nerves II through XII grossly intact. Normal speech, gait not observed. PSYCH: Normal mood, normal affect. SKIN: Warm, dry, normal turgor, no rashes or lesions noted Laboratory Results - last 24 hr 01/16/18 01/17/18 01/17/18 22:56 06:00 08:39 WBC 6.0 RBC 3.82 Hgb 11.5 Hct 33.9 MCV 88.8 MCH 30.0 MCHC 33.8 RDW 13.8 Plt Count 212 MPV 8.9 Neutrophils % 64.7 Lymphocytes % 22.2 Monocytes % 10.0 Eosinophils % 3.0 D Basophils % 0.1 Nucleated RBC % 0 Sodium Potassium Chloride Carbon Dioxide Anion Gap BUN Creatinine POC Glucometer 229 103 Random Glucose Calcium 01/17/18 01/17/18 01/17/18 08:46 12:36 17:16 WBC RBC Hgb Hct MCV MCH MCHC RDW Plt Count MPV Neutrophils % Lymphocytes % Monocytes % Eosinophils % Basophils % Nucleated RBC % Sodium 141 Potassium 4.2 Chloride 108 H Carbon Dioxide 25 Anion Gap 8 BUN 18 Creatinine 0.8 POC Glucometer 235 267 Random Glucose 114 H Calcium 8.6 Active Medications Generic Name Dose Route Start Last Admin Trade Name Freq PRN Reason Stop Dose Admin Acetaminophen 650 mg 01/14/18 23:33 Tylenol - PO QID PRN FEVER Amlodipine Besylate 10 mg 01/15/18 10:00 01/17/18 11:27 Norvasc - PO 10 mg DAILY [facility] Administration Aspirin 81 mg 01/15/18 10:00 01/17/18 11:25 Asa - PO 81 mg DAILY [facility] Administration Atorvastatin Calcium 20 mg 01/15/18 22:00 01/16/18 22:52 Lipitor - PO 20 mg HS [facility] Administration Bacitracin 1 applic 01/15/18 06:00 01/17/18 15:01 Bacitracin - TP Not Given TID [facility] Calcium Carbonate 1,300 mg 01/15/18 10:00 01/17/18 11:25 Calcium Carbonate - PO 1,300 mg BID [facility] Administration Clopidogrel Bisulfate 75 mg 01/15/18 10:00 01/17/18 11:24 Plavix - PO 75 mg DAILY [facility] Administration Docusate Sodium 100 mg 01/15/18 10:00 01/17/18 11:27 Colace - PO 100 mg BID [facility] Administration Duloxetine HCl 20 mg 01/15/18 10:00 01/17/18 13:19 Cymbalta - PO Not Given DAILY [facility] Ferrous Sulfate 325 mg 01/15/18 10:00 01/17/18 13:19 Feosol - PO Not Given DAILY [facility] Heparin Sodium (Porcine) 5,000 unit 01/15/18 10:00 01/17/18 11:27 Heparin - SQ 5,000 unit BID [facility] Administration Sodium Chloride 1,000 mls @ 75 mls/hr 01/14/18 20:15 01/17/18 17:38 Normal Saline - IV 75 mls/hr ASDIR [facility] Administration Sodium Chloride 1,000 mls @ 50 mls/hr 01/15/18 00:18 Normal Saline - IV ASDIR [facility] Piperacillin Sod/Tazobactam 50 mls @ 100 mls/hr 01/16/18 02:00 01/17/18 17:37 Sod 3.375 gm/ Dextrose IVPB 100 mls/hr Q8H-IV [facility] Administration Protocol Insulin Aspart 0 vial 01/15/18 07:00 01/17/18 17:37 Novolog Vial Sliding Scale - SQ 6 unit ACHS [facility] Administration Protocol Lactobacillus Acidophilus 1 tab 01/15/18 10:00 01/17/18 11:25 Bacid - PO 1 tab DAILY [facility] Administration Metoprolol Succinate 75 mg 01/15/18 10:00 01/17/18 11:24 Toprol Xl - PO 75 mg BID [facility] Administration Polyethylene Glycol 17 gm 01/15/18 06:00 01/17/18 15:02 Miralax (For Daily Use) - PO Not Given TID [facility] Tamsulosin HCl 0.8 mg 01/15/18 08:30 01/17/18 13:18 Flomax - PO Not Given DAILY@0830 [facility] ASSESSMENT/PLAN: 87 year old female with a hx of CAD, dementia, DM, HTN, constipation, multiple UTIs presents for a 1 day hx of altered mental status suspect for urinary tract infection #Altered Mental Status on Dementia -likely 2/2 urinary tract infection -patient given 1gm rocephin in ED -hx of ESBL E coli and Pseudomonas in urine -IV NS @ 50cc/hr -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 Ritchie appreciated -isolation precautions -fall precautions -tamsulosin -Note: per nurse, pt's daughter came to visit and stated this is very typical of the pt as she has had numerous UTI's in the past and responded similarly. -Pt seen by Speech Pathology. Recs appreciated. #UTI - +3 LE -UCx: Lactose fermenting and nonfermenting Gnb pending sensitivity -Hx Pseudomonas and ESBL #Retention -Pt was retaining urine yest -Valencia was placed -D/C valencia today -Post void bladder scan #Diabetes Mellitus -glucose was 280 on presentation -BGMs ACHS -ISS ACHS #Hypertension -continue home toprol -continue home amlodipine #Hx CAD -continue home asa/plavix -confirm home medications #FEN -IV NS @ 50cc/hr -lytes wnl -dysphagia puree crushed with apple sauce #PPx -hep subQ #Dispo -admit med-surg Jethro Gomez MD PGY-1 IM Visit type - Emergency Visit Emergency Visit: No - New Patient This patient is new to me today: No - Critical Care Critical Care patient: No - Discharge Referral Referred to [facility] Med P.C.: No
--- NOTE | 2018-01-17 18:35 | PN ---
Teaching Attending Note Name of Resident: Jethro Gomez ATTENDING PHYSICIAN STATEMENT I saw and evaluated the patient. I reviewed the resident's note and discussed the case with the resident. I agree with the resident's findings and plan as documented with exceptions below. SUBJECTIVE: Patient seen and examined, pleasant. no complaints. OBJECTIVE: Vital Signs Period Temp Pulse Resp BP Sys/Iniguez Pulse Ox Last 24 Hr 97.6 F-98.4 F 69-70 18-18 142-157/54-74 99 Intake & Output 01/14/18 01/15/18 01/16/18 01/17/18 23:59 23:59 23:59 23:59 Intake Total 400 Output Total 1600 900 Balance -1200 -900 Weight 110 lb 108 lb General: sitting in bed in no acute distress Abdomen: soft, NT, ND, positive bowel sounds Home Medication List Medication Instructions Recorded Confirmed Type Duloxetine HCl 20 mg PO DAILY 12/23/15 01/16/18 History Ferrous Sulfate 325 mg PO DAILY 12/23/15 01/16/18 History Metformin HCl 850 mg PO BID 12/23/15 01/16/18 History Polyethylene Glycol 3350 [Miralax 17 gm PO TID 12/23/15 01/16/18 History 119 gm Btl -] Amlodipine Besylate [Norvasc -] 10 mg PO DAILY 01/16/18 01/16/18 History Atorvastatin Ca [Lipitor] 20 mg PO HS 01/16/18 01/16/18 History Clopidogrel Bisulfate [Plavix] 75 mg PO DAILY 01/16/18 01/16/18 History Active Medications Generic Name Dose Route Start Last Admin Trade Name Freq PRN Reason Stop Dose Admin Acetaminophen 650 mg 01/14/18 23:33 Tylenol - PO QID PRN FEVER Amlodipine Besylate 10 mg 01/15/18 10:00 01/17/18 11:27 Norvasc - PO 10 mg DAILY [facility] Administration Aspirin 81 mg 01/15/18 10:00 01/17/18 11:25 Asa - PO 81 mg DAILY [facility] Administration Atorvastatin Calcium 20 mg 01/15/18 22:00 01/16/18 22:52 Lipitor - PO 20 mg HS [facility] Administration Bacitracin 1 applic 01/15/18 06:00 01/17/18 15:01 Bacitracin - TP Not Given TID [facility] Calcium Carbonate 1,300 mg 01/15/18 10:00 01/17/18 11:25 Calcium Carbonate - PO 1,300 mg BID [facility] Administration Clopidogrel Bisulfate 75 mg 01/15/18 10:00 01/17/18 11:24 Plavix - PO 75 mg DAILY [facility] Administration Docusate Sodium 100 mg 01/15/18 10:00 01/17/18 11:27 Colace - PO 100 mg BID [facility] Administration Duloxetine HCl 20 mg 01/15/18 10:00 01/17/18 13:19 Cymbalta - PO Not Given DAILY [facility] Ferrous Sulfate 325 mg 01/15/18 10:00 01/17/18 13:19 Feosol - PO Not Given DAILY [facility] Heparin Sodium (Porcine) 5,000 unit 01/15/18 10:00 01/17/18 11:27 Heparin - SQ 5,000 unit BID [facility] Administration Sodium Chloride 1,000 mls @ 50 mls/hr 01/15/18 00:18 Normal Saline - IV ASDIR [facility] Piperacillin Sod/Tazobactam 50 mls @ 100 mls/hr 01/16/18 02:00 01/17/18 17:37 Sod 3.375 gm/ Dextrose IVPB 100 mls/hr Q8H-IV [facility] Administration Protocol Insulin Aspart 0 vial 01/15/18 07:00 01/17/18 17:37 Novolog Vial Sliding Scale - SQ 6 unit ACHS [facility] Administration Protocol Lactobacillus Acidophilus 1 tab 01/15/18 10:00 01/17/18 11:25 Bacid - PO 1 tab DAILY [facility] Administration Metoprolol Succinate 75 mg 01/15/18 10:00 01/17/18 11:24 Toprol Xl - PO 75 mg BID [facility] Administration Polyethylene Glycol 17 gm 01/15/18 06:00 01/17/18 15:02 Miralax (For Daily Use) - PO Not Given TID [facility] Tamsulosin HCl 0.8 mg 01/15/18 08:30 01/17/18 13:18 Flomax - PO Not Given DAILY@0830 [facility] Microbiology 01/14/18 22:22 Urine - Urine [place] Urine Culture - Preliminary Lactose Fermenting Neg Bacilli Non Lactose Fermenting Gnb Laboratory Results - last 24 hr 01/16/18 01/17/18 01/17/18 22:56 06:00 08:39 WBC 6.0 RBC 3.82 Hgb 11.5 Hct 33.9 MCV 88.8 MCH 30.0 MCHC 33.8 RDW 13.8 Plt Count 212 MPV 8.9 Neutrophils % 64.7 Lymphocytes % 22.2 Monocytes % 10.0 Eosinophils % 3.0 D Basophils % 0.1 Nucleated RBC % 0 Sodium Potassium Chloride Carbon Dioxide Anion Gap BUN Creatinine POC Glucometer 229 103 Random Glucose Calcium 01/17/18 01/17/18 01/17/18 08:46 12:36 17:16 WBC RBC Hgb Hct MCV MCH MCHC RDW Plt Count MPV Neutrophils % Lymphocytes % Monocytes % Eosinophils % Basophils % Nucleated RBC % Sodium 141 Potassium 4.2 Chloride 108 H Carbon Dioxide 25 Anion Gap 8 BUN 18 Creatinine 0.8 POC Glucometer 235 267 Random Glucose 114 H Calcium 8.6 ASSESSMENT AND PLAN: 87 yo F with PMH HTN, CAD , CVA , dementia, dyslipidemia, DM, and frequent UTI presented to the ER for AMS and foul smelling urine -Acute UTI, prior urine cultures with h/o ESBL/Pseudomonas -Acute metabolic toxic excephalopathy, from above, improved today -Hypovolumic hyponatremia -CAD -HTN -Dementia -NIDDM Plan: Zosyn day 3, ID input noted, follow up urine cultures. Mental status better. D/c IVF Continue ASA/plavix/amlodipine. DVTPPX with heparin ISS, diabetic diet Dispo in 1-2 days pending urine cultures and clinical improvement.
[2018-01-17] MEDS: ATORVASTATIN CA 20 MG TABLET (FP) PO SCH (22:14)
[2018-01-18] MEDS ORDERED: DEXTROSE 5%-WATER - 50 ML IVPB ONE ×2 (00:40→10:27)
[2018-01-18] MEDS ORDERED: PIPERACILLIN/TAZOBACTAM 3.375 GM VIAL IVPB ONE ×2 (00:40→10:26)
[2018-01-18] MEDS: PIPERACILLIN/TAZOB 3.375 GM 3.375 GM in DEXTROSE 5%-WATER - 50 ML IVPB SCH ×2 (01:30→10:43)
[2018-01-18] MEDS: POLYETHYLENE GLYCOL 3350 119 GM BTL PO SCH ×3 (06:16→22:06)
[2018-01-18] MEDS: BACITRACIN 15 GM TUBE TOPICAL OINTMENT TP SCH ×3 (06:17→22:06)
[2018-01-18] MEDS: INSULIN SLIDING SCALE (NOVOLOG) 1 VIAL SQ SCH ×4 (06:17→22:07)
[2018-01-18 08:01] LABS: CALCIUM 8.7 mg/dL (8.5-10.1); CHLORIDE 109 mmol/L (98-107); POTASSIUM 4.7 mmol/L (3.5-5.1); SODIUM 141 mmol/L (136-145)
--- NOTE | 2018-01-18 08:01 | PN ---
Teaching Attending Note Name of Resident: Jethro Gomez ATTENDING PHYSICIAN STATEMENT I saw and evaluated the patient. I reviewed the resident's note and discussed the case with the resident. I agree with the resident's findings and plan as documented with exceptions below. SUBJECTIVE: Patient seen and examined, pleasant, oriented to self, no complaints. OBJECTIVE: Vital Signs Period Temp Pulse Resp BP Sys/Iniguez Pulse Ox Last 24 Hr 97.4 F-99 F 60-74 18-18 113-157/54-79 99 Intake & Output 01/15/18 01/16/18 01/17/18 01/18/18 23:59 23:59 23:59 23:59 Intake Total 400 50 Output Total 1600 900 Balance -1200 -900 50 Weight 108 lb General: sitting in bed in no acute distress, pleasant, oriented to self Abdomen: soft, ND, suprapubic tenderness, no CVA tenderness noted, no voluntary or involuntary guarding or rigidity Home Medication List Medication Instructions Recorded Confirmed Type Duloxetine HCl 20 mg PO DAILY 12/23/15 01/16/18 History Ferrous Sulfate 325 mg PO DAILY 12/23/15 01/16/18 History Metformin HCl 850 mg PO BID 12/23/15 01/16/18 History Polyethylene Glycol 3350 [Miralax 17 gm PO TID 12/23/15 01/16/18 History 119 gm Btl -] Amlodipine Besylate [Norvasc -] 10 mg PO DAILY 01/16/18 01/16/18 History Atorvastatin Ca [Lipitor] 20 mg PO HS 01/16/18 01/16/18 History Clopidogrel Bisulfate [Plavix] 75 mg PO DAILY 01/16/18 01/16/18 History Active Medications Generic Name Dose Route Start Last Admin Trade Name Freq PRN Reason Stop Dose Admin Acetaminophen 650 mg 01/14/18 23:33 Tylenol - PO QID PRN FEVER Amlodipine Besylate 10 mg 01/15/18 10:00 01/17/18 11:27 Norvasc - PO 10 mg DAILY [facility] Administration Aspirin 81 mg 01/15/18 10:00 01/17/18 11:25 Asa - PO 81 mg DAILY [facility] Administration Atorvastatin Calcium 20 mg 01/15/18 22:00 01/17/18 22:14 Lipitor - PO 20 mg HS [facility] Administration Bacitracin 1 applic 01/15/18 06:00 01/18/18 06:17 Bacitracin - TP Not Given TID [facility] Calcium Carbonate 1,300 mg 01/15/18 10:00 01/17/18 23:04 Calcium Carbonate - PO 1,300 mg BID [facility] Administration Clopidogrel Bisulfate 75 mg 01/15/18 10:00 01/17/18 11:24 Plavix - PO 75 mg DAILY [facility] Administration Docusate Sodium 100 mg 01/15/18 10:00 01/17/18 22:14 Colace - PO 100 mg BID [facility] Administration Duloxetine HCl 20 mg 01/15/18 10:00 01/17/18 13:19 Cymbalta - PO Not Given DAILY [facility] Ferrous Sulfate 325 mg 01/15/18 10:00 01/17/18 13:19 Feosol - PO Not Given DAILY [facility] Heparin Sodium (Porcine) 5,000 unit 01/15/18 10:00 01/17/18 22:15 Heparin - SQ 5,000 unit BID [facility] Administration Sodium Chloride 1,000 mls @ 50 mls/hr 01/15/18 00:18 Normal Saline - IV ASDIR [facility] Piperacillin Sod/Tazobactam 50 mls @ 100 mls/hr 01/16/18 02:00 01/18/18 01:30 Sod 3.375 gm/ Dextrose IVPB 100 mls/hr Q8H-IV [facility] Administration Protocol Insulin Aspart 0 vial 01/15/18 07:00 01/18/18 06:17 Novolog Vial Sliding Scale - SQ 2 unit ACHS [facility] Administration Protocol Lactobacillus Acidophilus 1 tab 01/15/18 10:00 01/17/18 11:25 Bacid - PO 1 tab DAILY [facility] Administration Metoprolol Succinate 75 mg 01/15/18 10:00 01/17/18 22:15 Toprol Xl - PO 75 mg BID [facility] Administration Polyethylene Glycol 17 gm 01/15/18 06:00 01/18/18 06:16 Miralax (For Daily Use) - PO 17 grams TID [facility] Administration Tamsulosin HCl 0.8 mg 01/15/18 08:30 01/17/18 13:18 Flomax - PO Not Given DAILY@0830 [facility] Laboratory Results - last 24 hr 01/17/18 01/17/18 01/17/18 12:36 17:16 22:17 WBC Corrected WBC (auto) RBC Hgb Hct MCV MCH MCHC RDW Plt Count MPV Neutrophils % Lymphocytes % Monocytes % Eosinophils % Basophils % Nucleated RBC % Platelet Estimate Platelet Comment Sodium Potassium Chloride Carbon Dioxide Anion Gap BUN Creatinine POC Glucometer 235 267 185 Random Glucose Calcium 01/18/18 01/18/18 01/18/18 06:00 06:00 06:01 WBC Cancelled Corrected WBC (auto) Cancelled RBC Cancelled Hgb Cancelled Hct Cancelled MCV Cancelled MCH Cancelled MCHC Cancelled RDW Cancelled Plt Count Cancelled MPV Cancelled Neutrophils % Cancelled Lymphocytes % Cancelled Monocytes % Cancelled Eosinophils % Cancelled Basophils % Cancelled Nucleated RBC % Cancelled Platelet Estimate Cancelled Platelet Comment Cancelled Sodium 141 Potassium 4.7 Chloride 109 H Carbon Dioxide 25 Anion Gap 7 L BUN 18 Creatinine 0.9 POC Glucometer 156 Random Glucose 149 H Calcium 8.7 Microbiology 01/14/18 22:22 Urine - Urine [place] Urine Culture - Preliminary Escherichia Coli Esbl Post Framer Non Lactose Fermenting Gnb ASSESSMENT AND PLAN: 87 yo F with PMH HTN, CAD , CVA , dementia, dyslipidemia, DM, and frequent UTI presented to the ER for AMS and foul smelling urine -Acute complicated UTI, ESBL and second organism pending -Acute metabolic toxic encephalopathy, from above, improved today -Urinary retention with incontinence, likely from constipation, poor mobilization -Hypovolumic hyponatremia -CAD -HTN -Dementia -NIDDM Plan: Zosyn day 4, Urine cultures first organism ESBL. Discussed with Dr. Ritchie Ertapenem, likely 2 weeks, follow up second organism Discuss with CM possible PICC and SNF. Mental status better. Off IVF. Intermittent retention suspect with overflow incontinence, likely chronic with some component of neurogenic bladder compounded by poor mobilization and constipation. Check Renal/Bladder US to assess obstructive findings. Bladder scan q6h with straight cath prn for now, hold off on valencia. Continue ASA/plavix/amlodipine. DVTPPX with heparin ISS, diabetic diet Dispo anticipate SNF in 24 hours for IV abx, pending final urine cultures.
--- NOTE | 2018-01-18 08:02 | PN ---
Physical Exam: SUBJECTIVE: Patient seen and examined at bedside. No acute events. Pt sleeping but rousable. OBJECTIVE: Vital Signs Period Temp Pulse Resp BP Sys/Iniguez Pulse Ox Last 24 Hr 97.4 F-99 F 60-74 18-18 113-157/54-79 99 GENERAL: The patient is awake, alert, and fully oriented, in no acute distress. HEAD: Normal with no signs of trauma. EYES: sclera anicteric, conjunctiva clear. No ptosis. ENT: Ears normal, nares patent, oropharynx clear without exudates, moist mucous membranes. NECK: Trachea midline, full range of motion, supple. LUNGS: Breath sounds equal, clear to auscultation bilaterally, no wheezes, no crackles, no accessory muscle use. HEART: Regular rate and rhythm, S1, S2 with 3/6 systolic murmur LUSB, no rub or gallop. ABDOMEN: Soft, nontender, nondistended, normoactive bowel sounds, no guarding, no rebound, no hepatosplenomegaly, no masses. EXTREMITIES: 2+ pulses, warm, well-perfused, no edema. NEUROLOGICAL: Cranial nerves II through XII grossly intact. Normal speech, gait not observed. PSYCH: Normal mood, normal affect. SKIN: Warm, dry, normal turgor, no rashes or lesions noted Laboratory Results - last 24 hr 01/17/18 01/17/18 01/17/18 06:00 08:39 08:46 WBC 6.0 RBC 3.82 Hgb 11.5 Hct 33.9 MCV 88.8 MCH 30.0 MCHC 33.8 RDW 13.8 Plt Count 212 MPV 8.9 Neutrophils % 64.7 Lymphocytes % 22.2 Monocytes % 10.0 Eosinophils % 3.0 D Basophils % 0.1 Nucleated RBC % 0 Sodium 141 Potassium 4.2 Chloride 108 H Carbon Dioxide 25 Anion Gap 8 BUN 18 Creatinine 0.8 POC Glucometer 103 Random Glucose 114 H Calcium 8.6 01/17/18 01/17/18 01/17/18 12:36 17:16 22:17 WBC RBC Hgb Hct MCV MCH MCHC RDW Plt Count MPV Neutrophils % Lymphocytes % Monocytes % Eosinophils % Basophils % Nucleated RBC % Sodium Potassium Chloride Carbon Dioxide Anion Gap BUN Creatinine POC Glucometer 235 267 185 Random Glucose Calcium 01/18/18 06:01 WBC RBC Hgb Hct MCV MCH MCHC RDW Plt Count MPV Neutrophils % Lymphocytes % Monocytes % Eosinophils % Basophils % Nucleated RBC % Sodium Potassium Chloride Carbon Dioxide Anion Gap BUN Creatinine POC Glucometer 156 Random Glucose Calcium Active Medications Generic Name Dose Route Start Last Admin Trade Name Freq PRN Reason Stop Dose Admin Acetaminophen 650 mg 01/14/18 23:33 Tylenol - PO QID PRN FEVER Amlodipine Besylate 10 mg 01/15/18 10:00 01/17/18 11:27 Norvasc - PO 10 mg DAILY SEAN Administration Aspirin 81 mg 01/15/18 10:00 01/17/18 11:25 Asa - PO 81 mg DAILY SEAN Administration Atorvastatin Calcium 20 mg 01/15/18 22:00 01/17/18 22:14 Lipitor - PO 20 mg HS SEAN Administration Bacitracin 1 applic 01/15/18 06:00 01/18/18 06:17 Bacitracin - TP Not Given TID [facility] Calcium Carbonate 1,300 mg 01/15/18 10:00 01/17/18 23:04 Calcium Carbonate - PO 1,300 mg BID SEAN Administration Clopidogrel Bisulfate 75 mg 01/15/18 10:00 01/17/18 11:24 Plavix - PO 75 mg DAILY [facility] Administration Docusate Sodium 100 mg 01/15/18 10:00 01/17/18 22:14 Colace - PO 100 mg BID SEAN Administration Duloxetine HCl 20 mg 01/15/18 10:00 01/17/18 13:19 Cymbalta - PO Not Given DAILY [facility] Ferrous Sulfate 325 mg 01/15/18 10:00 01/17/18 13:19 Feosol - PO Not Given DAILY [facility] Heparin Sodium (Porcine) 5,000 unit 01/15/18 10:00 01/17/18 22:15 Heparin - SQ 5,000 unit BID SEAN Administration Sodium Chloride 1,000 mls @ 50 mls/hr 01/15/18 00:18 Normal Saline - IV ASDIR SEAN Piperacillin Sod/Tazobactam 50 mls @ 100 mls/hr 01/16/18 02:00 01/18/18 01:30 Sod 3.375 gm/ Dextrose IVPB 100 mls/hr Q8H-IV SEAN Administration Protocol Insulin Aspart 0 vial 01/15/18 07:00 01/18/18 06:17 Novolog Vial Sliding Scale - SQ 2 unit ACHS SEAN Administration Protocol Lactobacillus Acidophilus 1 tab 01/15/18 10:00 01/17/18 11:25 Bacid - PO 1 tab DAILY SEAN Administration Metoprolol Succinate 75 mg 01/15/18 10:00 01/17/18 22:15 Toprol Xl - PO 75 mg BID SEAN Administration Polyethylene Glycol 17 gm 01/15/18 06:00 01/18/18 06:16 Miralax (For Daily Use) - PO 17 grams TID SEAN Administration Tamsulosin HCl 0.8 mg 01/15/18 08:30 01/17/18 13:18 Flomax - PO Not Given DAILY@0830 [facility] ASSESSMENT/PLAN: 87 year old female with a hx of CAD, dementia, DM, HTN, constipation, multiple UTIs presents for a 1 day hx of altered mental status suspect for urinary tract infection #Altered Mental Status on Dementia -likely 2/2 urinary tract infection -patient given 1gm rocephin in ED -hx of ESBL E coli and Pseudomonas in urine -IV NS @ 50cc/hr -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 Ritchie appreciated -isolation precautions -fall precautions -tamsulosin -Note: per nurse, pt's daughter came to visit and stated this is very typical of the pt as she has had numerous UTI's in the past and responded similarly. -Pt seen by Speech Pathology. Recs appreciated. #UTI - +3 LE -UCx: Lactose fermenting and nonfermenting Gnb pending sensitivity -Hx Pseudomonas and ESBL #Retention -Pt was retaining urine yest -Valencia was placed -D/C valencia today -Post void bladder scan pending #Diabetes Mellitus -glucose was 280 on presentation -BGMs ACHS -ISS ACHS #Hypertension -continue home toprol -continue home amlodipine #Hx CAD -continue home asa/plavix -confirm home medications #FEN -IV NS @ 50cc/hr -lytes wnl -dysphagia puree crushed with apple sauce #PPx -hep subQ #Dispo -admit med-surg Jethro Gomez MD PGY-1 IM Visit type - Emergency Visit Emergency Visit: No - New Patient This patient is new to me today: No - Critical Care Critical Care patient: No
[2018-01-18 08:04] LABS: ANION GAP 7 (8-16); BLOOD UREA NITROGEN 18 mg/dL (7-18); CO2 25 mmol/L (21-32); CREATININE 0.9 mg/dL (0.55-1.02); GLUCOSE,RANDOM 149 mg/dL (74-106)
[2018-01-18] MEDS: TAMSULOSIN HCL 0.4 MG CAP.ER.24H (FP) PO SCH (08:59)
[2018-01-18] MEDS: ASPIRIN 81 MG CHEWABLE TABLETS PO SCH (10:45)
[2018-01-18] MEDS: CALCIUM CARBONATE 650 MG TABLET PO SCH ×2 (10:46→22:28)
[2018-01-18] MEDS: DOCUSATE SODIUM 100 MG CAPSULE (FP) PO SCH ×3 (10:46→22:05)
[2018-01-18] MEDS: LACTOBACILLUS ACIDOPHILUS 1 TABLET PO SCH (10:46)
[2018-01-18] MEDS: FERROUS SO4 325 MG TABLET (FP) PO SCH (10:47)
[2018-01-18] MEDS: HEPARIN NA (PORCINE) 5,000 UNITS/ML 1ML VIAL SQ SCH ×2 (10:47→22:05)
[2018-01-18] MEDS: amLODIPine BESYLATE 10 MG TABLET (FP) PO SCH (10:48)
[2018-01-18] MEDS: CLOPIDOGREL BISULFATE 75 MG TABLET (FP) PO SCH (10:48)
[2018-01-18] MEDS: metoPROLOL SUCCINATE 25 MG TAB.SR.24H (FP) PO SCH ×2 (10:48→22:06)
[2018-01-18] MEDS ORDERED: INSULIN (NOVOLOG) ASPART 100 UNITS/ML 10ML VIAL ONE ×2 (11:19→18:51)
--- NOTE | 2018-01-18 11:40 | PN ---
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, Physician History of Present Illness: more awake and alert baseline dementia - Current Medication List Current Medications: Active Medications Acetaminophen (Tylenol -) 650 mg PO QID PRN PRN Reason: FEVER Amlodipine Besylate (Norvasc -) 10 mg PO DAILY [facility] Last Admin: 01/18/18 10:48 Dose: 10 mg Aspirin (Asa -) 81 mg PO DAILY [facility] Last Admin: 01/18/18 10:45 Dose: 81 mg Atorvastatin Calcium (Lipitor -) 20 mg PO HS [facility] Last Admin: 01/17/18 22:14 Dose: 20 mg Bacitracin (Bacitracin -) 1 applic TP TID [facility] Last Admin: 01/18/18 06:17 Dose: Not Given Calcium Carbonate (Calcium Carbonate -) 1,300 mg PO BID [facility] Last Admin: 01/18/18 10:46 Dose: 1,300 mg Clopidogrel Bisulfate (Plavix -) 75 mg PO DAILY [facility] Last Admin: 01/18/18 10:48 Dose: 75 mg Docusate Sodium (Colace -) 100 mg PO BID [facility] Last Admin: 01/18/18 11:14 Dose: Not Given Duloxetine HCl (Cymbalta -) 20 mg PO DAILY [facility] Last Admin: 01/17/18 13:19 Dose: Not Given Ferrous Sulfate (Feosol -) 325 mg PO DAILY [facility] Last Admin: 01/18/18 10:47 Dose: 325 mg Heparin Sodium (Porcine) (Heparin -) 5,000 unit SQ BID [facility] Last Admin: 01/18/18 10:47 Dose: 5,000 unit Sodium Chloride (Normal Saline -) 1,000 mls @ 50 mls/hr IV ASDIR [facility] Piperacillin Sod/Tazobactam (Sod 3.375 gm/ Dextrose) 50 mls @ 100 mls/hr IVPB Q8H-IV [facility]; Protocol Last Admin: 01/18/18 10:43 Dose: 100 mls/hr Insulin Aspart (Novolog Vial Sliding Scale -) 0 vial SQ ACHS [facility]; Protocol Last Admin: 01/18/18 06:17 Dose: 2 unit Lactobacillus Acidophilus (Bacid -) 1 tab PO DAILY [facility] Last Admin: 01/18/18 10:46 Dose: 1 tab Metoprolol Succinate (Toprol Xl -) 75 mg PO BID [facility] Last Admin: 01/18/18 10:48 Dose: 75 mg Polyethylene Glycol (Miralax (For Daily Use) -) 17 gm PO TID [facility] Last Admin: 01/18/18 06:16 Dose: 17 grams Tamsulosin HCl (Flomax -) 0.8 mg PO DAILY@0830 [facility] Last Admin: 01/18/18 08:59 Dose: Not Given - Objective Vital Signs: Vital Signs Temperature 97.8 F 01/18/18 10:00 Pulse Rate 68 01/18/18 10:00 Respiratory Rate 18 01/18/18 10:00 Blood Pressure 155/72 01/18/18 10:00 O2 Sat by Pulse Oximetry (%) 99 01/17/18 20:30 Constitutional: Yes: No Distress, Calm, Thin Cardiovascular: Yes: Regular Rate and Rhythm Respiratory: Yes: Regular, CTA Bilaterally Gastrointestinal: Yes: Normal Bowel Sounds, Soft Musculoskeletal: Yes: Other Extremities: Yes: Other Neurological: Yes: Alert, Other Psychiatric: Yes: Other Labs: CBC, BMP 01/18/18 06:00 01/18/18 06:00 Assessment/Plan ams lethargy uti dehydration plan one organism is esbl other organism awaited continue ertapenam rest as per primary
[2018-01-18] MEDS: DULoxetine HCL 20 MG CAPSULE.DR (FP) PO SCH (12:01)
--- NOTE | 2018-01-18 12:28 | PN ---
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 Mental status improved.
[2018-01-18] MEDS ORDERED: PICC LINE 8 ML FLUSH PROTOCOL IVPUSH PRN (13:14)
--- NOTE | 2018-01-18 13:49 | DS ---
Physical Exam: SUBJECTIVE: Patient seen and examined at bedside. No acute events. Pt sleeping but rousable. OBJECTIVE: Vital Signs Period Temp Pulse Resp BP Sys/Iniguez Pulse Ox Last 24 Hr 97.4 F-99 F 60-74 18-20 113-155/66-81 99 PHYSICAL EXAM GENERAL: The patient is awake, alert, and fully oriented, in no acute distress. HEAD: Normal with no signs of trauma. EYES: sclera anicteric, conjunctiva clear. No ptosis. ENT: Ears normal, nares patent, oropharynx clear without exudates, moist mucous membranes. NECK: Trachea midline, full range of motion, supple. LUNGS: Breath sounds equal, clear to auscultation bilaterally, no wheezes, no crackles, no accessory muscle use. HEART: Regular rate and rhythm, S1, S2 with 3/6 systolic murmur LUSB, no rub or gallop. ABDOMEN: Soft, nontender, nondistended, normoactive bowel sounds, no guarding, no rebound, no hepatosplenomegaly, no masses. EXTREMITIES: 2+ pulses, warm, well-perfused, no edema. NEUROLOGICAL: Cranial nerves II through XII grossly intact. Normal speech, gait not observed. PSYCH: Normal mood, normal affect. SKIN: Warm, dry, normal turgor, no rashes or lesions noted LABS Laboratory Results - last 24 hr 01/17/18 01/17/18 01/18/18 17:16 22:17 06:00 WBC Cancelled Corrected WBC (auto) Cancelled RBC Cancelled Hgb Cancelled Hct Cancelled MCV Cancelled MCH Cancelled MCHC Cancelled RDW Cancelled Plt Count Cancelled MPV Cancelled Neutrophils % Cancelled Lymphocytes % Cancelled Monocytes % Cancelled Eosinophils % Cancelled Basophils % Cancelled Nucleated RBC % Cancelled Platelet Estimate Cancelled Platelet Comment Cancelled Sodium Potassium Chloride Carbon Dioxide Anion Gap BUN Creatinine POC Glucometer 267 185 Random Glucose Calcium 01/18/18 01/18/18 01/18/18 06:00 06:01 11:36 WBC Corrected WBC (auto) RBC Hgb Hct MCV MCH MCHC RDW Plt Count MPV Neutrophils % Lymphocytes % Monocytes % Eosinophils % Basophils % Nucleated RBC % Platelet Estimate Platelet Comment Sodium 141 Potassium 4.7 Chloride 109 H Carbon Dioxide 25 Anion Gap 7 L BUN 18 Creatinine 0.9 POC Glucometer 156 210 Random Glucose 149 H Calcium 8.7 HOSPITAL COURSE: Date of Admission:01/14/18 Date of Discharge: 01/18/18 87 year old female with a hx of CAD, dementia, DM, HTN, constipation, multiple UTIs presents for a 1 day hx of altered mental status suspect for urinary tract infection. Pt arrived in the hospital with Altered Mental Status on top of chronic Dementia. This was thought to be likely 2/2 urinary tract infection as pt had UA pos for 3+ LE. Patient was given 1gm rocephin in ED. 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 She was later switched to Zosyn. She was noted to have a hx of ESBL E coli and Pseudomonas sensitive to several agents including carbapenems in urine. She was given NS. 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 ID consult Dr. Ritchie appreciated. She was also given her home tamsulosin. At one point, per nurse, pt's daughter came to visit and stated this is very typical of the pt as she has had numerous UTI's in the past and responded similarly. Pt was also seen by Speech Pathology. Recs appreciated. Pt was found to be retaining urine. She had a valencia placed. Upon d/c of the valencia, pt was able void without excessive residual urine. Pt's Diabetes Mellitus was treated with BGM and ISS Pt's Hypertension was treated with home toprol and amlodipine. Pt had a Hx of CAD and was given asa/plavix. Minutes to complete discharge: 30 <PatriciaJethro - Last Filed: 01/22/18 07:13> Physical Exam: SUBJECTIVE: Patient seen and examined OBJECTIVE: PHYSICAL EXAM GENERAL: The patient is awake, alert, and fully oriented, in no acute distress. HEAD: Normal with no signs of trauma. EYES: PERRL, extraocular movements intact, sclera anicteric, conjunctiva clear. ENT: Ears normal, nares patent, oropharynx clear without exudates, moist mucous membranes. NECK: Trachea midline, full range of motion, supple. LUNGS: Breath sounds equal, clear to auscultation bilaterally, no wheezes, no crackles, no accessory muscle use. HEART: Regular rate and rhythm, S1, S2 without murmur, rub or gallop. ABDOMEN: Soft, nontender, nondistended, normoactive bowel sounds, no guarding, no rebound, no hepatosplenomegaly, no masses. EXTREMITIES: 2+ pulses, warm, well-perfused, no edema. NEUROLOGICAL: Cranial nerves II through XII grossly intact. Normal speech, gait not observed. PSYCH: Normal mood, normal affect. SKIN: Warm, dry, normal turgor, no rashes or lesions noted. LABS HOSPITAL COURSE: Date of Admission:01/14/18 Date of Discharge: 01/22/18 <Yovanny Benjamin - Last Filed: 01/22/18 17:43> Discharge Summary Reason For Visit: UTI Current Active Problems UTI (urinary tract infection) (Acute) - Home Medications Comprehensive Discharge Medication List: Ambulatory Orders Duloxetine HCl 20 mg PO DAILY 12/23/15 Ferrous Sulfate 325 mg PO DAILY 12/23/15 Metformin HCl 850 mg PO BID 12/23/15 Polyethylene Glycol 3350 [Miralax 119 gm Btl -] 17 gm PO TID 12/23/15 Docusate Sodium [Colace -] 100 mg PO BID #40 capsule 04/14/16 Calcium Carbonate - 1,300 mg PO BID #30 tablet 06/13/17 Lactobacillus Acidophilus [Bacid -] 1 tab PO DAILY tab 06/13/17 Metoprolol Succinate [Toprol XL -] 75 mg PO BID #180 tab.sr.24h 06/13/17 Tamsulosin HCl [Flomax -] 0.8 mg PO DAILY@0830 #30 cap 06/23/17 Amlodipine Besylate [Norvasc -] 10 mg PO DAILY 01/16/18 Atorvastatin Ca [Lipitor] 20 mg PO HS 01/16/18 Clopidogrel Bisulfate [Plavix] 75 mg PO DAILY 01/16/18 <Jethro Gomez - Last Filed: 01/22/18 07:13> Hospital Course: Correction: on exam, patient oriented to self, not to time or place - Home Medications Comprehensive Discharge Medication List: Ambulatory Orders Duloxetine HCl 20 mg PO DAILY 12/23/15 Ferrous Sulfate 325 mg PO DAILY 12/23/15 Metformin HCl 850 mg PO BID 12/23/15 Polyethylene Glycol 3350 [Miralax 119 gm Btl -] 17 gm PO TID 12/23/15 Docusate Sodium [Colace -] 100 mg PO BID #40 capsule 04/14/16 Calcium Carbonate - 1,300 mg PO BID #30 tablet 06/13/17 Lactobacillus Acidophilus [Bacid -] 1 tab PO DAILY tab 06/13/17 Metoprolol Succinate [Toprol XL -] 75 mg PO BID #180 tab.sr.24h 06/13/17 Tamsulosin HCl [Flomax -] 0.8 mg PO DAILY@0830 #30 cap 06/23/17 Amlodipine Besylate [Norvasc -] 10 mg PO DAILY 01/16/18 Atorvastatin Ca [Lipitor] 20 mg PO HS 01/16/18 Clopidogrel Bisulfate [Plavix] 75 mg PO DAILY 01/16/18 Aspirin [ASA -] 81 mg PO DAILY tab.chew 01/18/18 Bacitracin - [Bacitracin Topical Ointment -] 1 applic TP TID tube 01/18/18 Picc Line Flush [Picc Line Flush -] 8 ml IVPUSH PRN PRN #30 ml 01/18/18 Ertapenem Sodium [Invanz -] 1 gm IVPB DAILY #10 vial 01/21/18 <Yovanny Benjamin - Last Filed: 01/22/18 17:43> Condition: Stable - Instructions Diet, Activity, Other Instructions: You have a urinary infection. You are being discharged with a picc line and IV antibiotics. You need to keep the PICC line clean. You will have your antibiotic through that line. Your Antibiotic Ertapenem is till 01/31/2018. Blood tests (CBC, BMP, LFTs) in 1 week with results to your regular doctor or Dr. Ritchie (infectious disease). You need to follow up with your primary care doctor within 1 week. You need to follow up with your infectious diseases doctor. Make sure you are voiding normally. If you are unable to urinate or if you become constipated, talk to your doctor as these make you more likely to develop urinary infection. Continue taking your home medications as before. Referrals: Tiffany Ritchie MD [Staff Physician] - 1 Week Nisa Lyons MD [Primary Care Provider] - 1 Week Disposition: VNS/HOME HEALTH CARE This patient is new to me today: No Emergency Visit: No Critical Care patient: No - Discharge Referral Referred to [facility] Med P.C.: No <Jethro Gomez - Last Filed: 01/22/18 07:13>
[2018-01-18] MEDS ORDERED: ERTAPENEM SODIUM 1 GM/50 ML PRE-DOCKED IVPB SCH (16:15)
[2018-01-18] MEDS: ERTAPENEM SODIUM 1 GM in SODIUM CHLORIDE 50 ML IVPB SCH (17:30)
[2018-01-18] MEDS ORDERED: PT OWN MED DRAWER 7, Y5N ONE ×2 (18:51→22:27)
[2018-01-18] MEDS: ATORVASTATIN CA 20 MG TABLET (FP) PO SCH (22:05)
[2018-01-19] MEDS ORDERED: METOPROLOL TARTRATE 25 MG TABLET (FP) PO ONE ×2 (05:47→07:47)
[2018-01-19] MEDS: INSULIN SLIDING SCALE (NOVOLOG) 1 VIAL SQ SCH ×4 (06:36→22:55)
[2018-01-19] MEDS: POLYETHYLENE GLYCOL 3350 119 GM BTL PO SCH ×3 (06:37→22:54)
[2018-01-19] MEDS: BACITRACIN 15 GM TUBE TOPICAL OINTMENT TP SCH ×3 (06:37→22:53)
[2018-01-19 07:37] LABS: BASO % 0.1 % (0-2.0); EOS % 3.9 % (0-4.5); HEMATOCRIT 37.4 % (32.4-45.2); HEMOGLOBIN 12.7 GM/dL (10.7-15.3); LYMPH % 26.9 % (8-40); MEAN CELL VOLUME 88.4 fl (80-96); MEAN PLT VOLUME 9.1 fl (7.5-11.1); MONO % 9.6 % (3.8-10.2); NEUT % 59.5 % (42.8-82.8); PLATELET COUNT 243 K/MM3 (134-434); RBC 4.23 M/mm3 (3.60-5.2); RDW 14.1 % (11.6-15.6); WHITE BLOOD COUNT 8.8 K/mm3 (4.0-10.0)
[2018-01-19] MEDS: TAMSULOSIN HCL 0.4 MG CAP.ER.24H (FP) PO SCH (07:57)
[2018-01-19] MEDS: amLODIPine BESYLATE 10 MG TABLET (FP) PO SCH ×2 (08:00→10:12)
[2018-01-19] MEDS: metoPROLOL SUCCINATE 25 MG TAB.SR.24H (FP) PO SCH ×3 (08:00→22:54)
[2018-01-19] MEDS: ASPIRIN 81 MG CHEWABLE TABLETS PO SCH (10:08)
[2018-01-19] MEDS: FERROUS SO4 325 MG TABLET (FP) PO SCH (10:08)
[2018-01-19] MEDS: LACTOBACILLUS ACIDOPHILUS 1 TABLET PO SCH (10:08)
[2018-01-19] MEDS: CALCIUM CARBONATE 650 MG TABLET PO SCH ×2 (10:09→22:53)
[2018-01-19] MEDS: DULoxetine HCL 20 MG CAPSULE.DR (FP) PO SCH (10:10)
[2018-01-19] MEDS: DOCUSATE SODIUM 100 MG CAPSULE (FP) PO SCH ×2 (10:10→22:54)
[2018-01-19] MEDS: ERTAPENEM SODIUM 1 GM in SODIUM CHLORIDE 50 ML IVPB SCH (10:11)
[2018-01-19] MEDS: CLOPIDOGREL BISULFATE 75 MG TABLET (FP) PO SCH (10:13)
--- NOTE | 2018-01-19 11:40 | PN ---
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, Physician History of Present Illness: patient stable still awaiting 2nd organism identification otherwise patient doing well - Current Medication List Current Medications: Active Medications Acetaminophen (Tylenol -) 650 mg PO QID PRN PRN Reason: FEVER Amlodipine Besylate (Norvasc -) 10 mg PO DAILY [facility] Last Admin: 01/19/18 10:12 Dose: Not Given Aspirin (Asa -) 81 mg PO DAILY [facility] Last Admin: 01/19/18 10:08 Dose: Not Given Atorvastatin Calcium (Lipitor -) 20 mg PO HS [facility] Last Admin: 01/18/18 22:05 Dose: 20 mg Bacitracin (Bacitracin -) 1 applic TP TID [facility] Last Admin: 01/19/18 06:37 Dose: 1 applic Calcium Carbonate (Calcium Carbonate -) 1,300 mg PO BID [facility] Last Admin: 01/19/18 10:09 Dose: 1,300 mg Clopidogrel Bisulfate (Plavix -) 75 mg PO DAILY [facility] Last Admin: 01/19/18 10:13 Dose: Not Given Docusate Sodium (Colace -) 100 mg PO BID [facility] Last Admin: 01/19/18 10:10 Dose: Not Given Duloxetine HCl (Cymbalta -) 20 mg PO DAILY [facility] Last Admin: 01/19/18 10:10 Dose: 20 mg Ferrous Sulfate (Feosol -) 325 mg PO DAILY [facility] Last Admin: 01/19/18 10:08 Dose: 325 mg Heparin Sodium (Porcine) (Heparin -) 5,000 unit SQ BID [facility] Last Admin: 01/18/18 22:05 Dose: 5,000 unit IV Flush (Picc Line Flush) 8 ml IVPUSH PRN PRN PRN Reason: Protocol Ertapenem 1 gm/ Sodium (Chloride) 50 mls @ 100 mls/hr IVPB DAILY [facility] Last Admin: 01/19/18 10:11 Dose: 100 mls/hr Insulin Aspart (Novolog Vial Sliding Scale -) 0 vial SQ ACHS [facility]; Protocol Last Admin: 01/19/18 06:36 Dose: Not Given Lactobacillus Acidophilus (Bacid -) 1 tab PO DAILY [facility] Last Admin: 01/19/18 10:08 Dose: 1 tab Metoprolol Succinate (Toprol Xl -) 75 mg PO BID [facility] Last Admin: 01/19/18 10:14 Dose: Not Given Polyethylene Glycol (Miralax (For Daily Use) -) 17 gm PO TID [facility] Last Admin: 01/19/18 06:37 Dose: 17 grams Tamsulosin HCl (Flomax -) 0.8 mg PO DAILY@0830 [facility] Last Admin: 01/19/18 07:57 Dose: Not Given - Objective Vital Signs: Vital Signs Temperature 97.9 F 01/19/18 05:44 Pulse Rate 67 01/19/18 10:32 Respiratory Rate 20 01/19/18 10:32 Blood Pressure 135/75 01/19/18 10:32 O2 Sat by Pulse Oximetry (%) 98 01/18/18 21:00 Constitutional: Yes: No Distress, Calm, Thin Cardiovascular: Yes: Regular Rate and Rhythm Respiratory: Yes: Regular, CTA Bilaterally Gastrointestinal: Yes: Normal Bowel Sounds, Soft Musculoskeletal: Yes: WNL Extremities: Yes: WNL Neurological: Yes: Alert, Other Psychiatric: Yes: Other Labs: CBC, BMP 01/19/18 06:00 01/18/18 06:00 Assessment/Plan ams lethargy uti dehydration plan one organism is esbl other organism awaited continue ertapenam rest as per primary patient can get a picc line patient will need 2 weeks of abx
--- NOTE | 2018-01-19 15:05 | PN ---
Teaching Attending Note Name of Resident: Jethro Gomez ATTENDING PHYSICIAN STATEMENT I saw and evaluated the patient. I reviewed the resident's note and discussed the case with the resident. I agree with the resident's findings and plan as documented with exceptions below. SUBJECTIVE: Patient seen and examined, pleasant, no complaints. OBJECTIVE: Vital Signs Period Temp Pulse Resp BP Sys/Iniguez Pulse Ox Last 24 Hr 97.9 F-98.4 F 67-74 18-20 127-198/60-96 98-100 Intake & Output 01/16/18 01/17/18 01/18/18 01/19/18 23:59 23:59 23:59 23:59 Intake Total 400 737 537 Output Total 1600 900 Balance -1200 -900 737 537 Weight 108 lb General: sitting in bed in no acute distress Abdomen: soft, No suprapubic or CVA tenderness, ND Home Medication List Medication Instructions Recorded Confirmed Type Duloxetine HCl 20 mg PO DAILY 12/23/15 01/16/18 History Ferrous Sulfate 325 mg PO DAILY 12/23/15 01/16/18 History Metformin HCl 850 mg PO BID 12/23/15 01/16/18 History Polyethylene Glycol 3350 [Miralax 17 gm PO TID 12/23/15 01/16/18 History 119 gm Btl -] Amlodipine Besylate [Norvasc -] 10 mg PO DAILY 01/16/18 01/16/18 History Atorvastatin Ca [Lipitor] 20 mg PO HS 01/16/18 01/16/18 History Clopidogrel Bisulfate [Plavix] 75 mg PO DAILY 01/16/18 01/16/18 History Active Medications Generic Name Dose Route Start Last Admin Trade Name Freq PRN Reason Stop Dose Admin Acetaminophen 650 mg 01/14/18 23:33 Tylenol - PO QID PRN FEVER Amlodipine Besylate 10 mg 01/15/18 10:00 01/19/18 10:12 Norvasc - PO Not Given DAILY [facility] Aspirin 81 mg 01/15/18 10:00 01/19/18 10:08 Asa - PO Not Given DAILY [facility] Atorvastatin Calcium 20 mg 01/15/18 22:00 01/18/18 22:05 Lipitor - PO 20 mg HS [facility] Administration Bacitracin 1 applic 01/15/18 06:00 01/19/18 14:45 Bacitracin - TP Not Given TID [facility] Calcium Carbonate 1,300 mg 01/15/18 10:00 01/19/18 10:09 Calcium Carbonate - PO 1,300 mg BID [facility] Administration Clopidogrel Bisulfate 75 mg 01/15/18 10:00 01/19/18 10:13 Plavix - PO Not Given DAILY [facility] Docusate Sodium 100 mg 01/15/18 10:00 01/19/18 10:10 Colace - PO Not Given BID [facility] Duloxetine HCl 20 mg 01/15/18 10:00 01/19/18 10:10 Cymbalta - PO 20 mg DAILY [facility] Administration Ferrous Sulfate 325 mg 01/15/18 10:00 01/19/18 10:08 Feosol - PO 325 mg DAILY [facility] Administration Heparin Sodium (Porcine) 5,000 unit 01/15/18 10:00 01/18/18 22:05 Heparin - SQ 5,000 unit BID [facility] Administration IV Flush 8 ml 01/18/18 13:14 Picc Line Flush IVPUSH PRN PRN Protocol Ertapenem 1 gm/ Sodium 50 mls @ 100 mls/hr 01/18/18 16:15 01/19/18 10:11 Chloride IVPB 100 mls/hr DAILY [facility] Administration Insulin Aspart 0 vial 01/15/18 07:00 01/19/18 12:07 Novolog Vial Sliding Scale - SQ 6 unit ACHS [facility] Administration Protocol Lactobacillus Acidophilus 1 tab 01/15/18 10:00 01/19/18 10:08 Bacid - PO 1 tab DAILY [facility] Administration Metoprolol Succinate 75 mg 01/15/18 10:00 01/19/18 10:14 Toprol Xl - PO Not Given BID [facility] Polyethylene Glycol 17 gm 01/15/18 06:00 01/19/18 14:46 Miralax (For Daily Use) - PO Not Given TID [facility] Tamsulosin HCl 0.8 mg 01/15/18 08:30 01/19/18 07:57 Flomax - PO Not Given DAILY@0830 [facility] Laboratory Results - last 24 hr 01/18/18 01/18/18 01/19/18 16:14 22:03 06:00 WBC 8.8 D RBC 4.23 Hgb 12.7 D Hct 37.4 MCV 88.4 MCH 30.0 MCHC 34.0 RDW 14.1 Plt Count 243 MPV 9.1 Neutrophils % 59.5 Lymphocytes % 26.9 D Monocytes % 9.6 Eosinophils % 3.9 Basophils % 0.1 Nucleated RBC % 0 POC Glucometer 212 153 01/19/18 01/19/18 06:31 11:42 WBC RBC Hgb Hct MCV MCH MCHC RDW Plt Count MPV Neutrophils % Lymphocytes % Monocytes % Eosinophils % Basophils % Nucleated RBC % POC Glucometer 142 253 Microbiology 01/14/18 22:22 Urine - Urine [place] Urine Culture - Preliminary Escherichia Coli 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 Ertapenem day 2/14. Follow up final urine cultures. for PICC today. Family wants to take patient home, with PICC. Mental status better. Off IVF. Intermittent retention suspect with overflow incontinence, likely chronic with some component of neurogenic bladder compounded by poor mobilization and constipation. Renal bladder US noted. Bladder scan q6h with straight cath prn for now, hold off on valencia. Continue ASA/plavix/amlodipine. DVTPPX with heparin ISS, diabetic diet Dispo SNF vs home with PICC In 24 hours pending urine cultures.
[2018-01-19] MEDS ORDERED: PT OWN MED DRAWER 7, Y5N ONE (22:48)
[2018-01-19] MEDS: HEPARIN NA (PORCINE) 5,000 UNITS/ML 1ML VIAL SQ SCH (22:53)
[2018-01-19] MEDS: ATORVASTATIN CA 20 MG TABLET (FP) PO SCH (22:54)
[2018-01-20] MEDS: INSULIN SLIDING SCALE (NOVOLOG) 1 VIAL SQ SCH ×4 (06:54→22:56)
[2018-01-20] MEDS: POLYETHYLENE GLYCOL 3350 119 GM BTL PO SCH ×3 (06:54→22:56)
[2018-01-20] MEDS: BACITRACIN 15 GM TUBE TOPICAL OINTMENT TP SCH ×3 (06:55→22:55)
--- NOTE | 2018-01-20 09:33 | PN ---
Teaching Attending Note Name of Resident: Fransico Pugh ATTENDING PHYSICIAN STATEMENT I saw and evaluated the patient. I reviewed the resident's note and discussed the case with the resident. I agree with the resident's findings and plan as documented with exceptions below. SUBJECTIVE: Patient seen and examined, no complaints. OBJECTIVE: Vital Signs Period Temp Pulse Resp BP Sys/Iniguez Pulse Ox Last 24 Hr 97.6 F-98.6 F 67-76 18-20 127-158/60-94 100 Intake & Output 01/17/18 01/18/18 01/19/18 01/20/18 23:59 23:59 23:59 23:59 Intake Total 737 687 100 Output Total 900 Balance -900 737 687 100 General: lying in bed in no acute distress Abdomen:soft, no suprapubic or CVA tenderness, ND, NT Home Medication List Medication Instructions Recorded Confirmed Type Duloxetine HCl 20 mg PO DAILY 12/23/15 01/16/18 History Ferrous Sulfate 325 mg PO DAILY 12/23/15 01/16/18 History Metformin HCl 850 mg PO BID 12/23/15 01/16/18 History Polyethylene Glycol 3350 [Miralax 17 gm PO TID 12/23/15 01/16/18 History 119 gm Btl -] Amlodipine Besylate [Norvasc -] 10 mg PO DAILY 01/16/18 01/16/18 History Atorvastatin Ca [Lipitor] 20 mg PO HS 01/16/18 01/16/18 History Clopidogrel Bisulfate [Plavix] 75 mg PO DAILY 01/16/18 01/16/18 History Active Medications Generic Name Dose Route Start Last Admin Trade Name Freq PRN Reason Stop Dose Admin Acetaminophen 650 mg 01/14/18 23:33 Tylenol - PO QID PRN FEVER Amlodipine Besylate 10 mg 01/15/18 10:00 01/19/18 10:12 Norvasc - PO Not Given DAILY [facility] Aspirin 81 mg 01/15/18 10:00 01/19/18 10:08 Asa - PO Not Given DAILY [facility] Atorvastatin Calcium 20 mg 01/15/18 22:00 01/19/18 22:54 Lipitor - PO 20 mg HS [facility] Administration Bacitracin 1 applic 01/15/18 06:00 01/20/18 06:55 Bacitracin - TP 1 applic TID [facility] Administration Calcium Carbonate 1,300 mg 01/15/18 10:00 01/19/18 22:53 Calcium Carbonate - PO 1,300 mg BID [facility] Administration Clopidogrel Bisulfate 75 mg 01/15/18 10:00 01/19/18 10:13 Plavix - PO Not Given DAILY [facility] Docusate Sodium 100 mg 01/15/18 10:00 01/19/18 22:54 Colace - PO 100 mg BID [facility] Administration Duloxetine HCl 20 mg 01/15/18 10:00 01/19/18 10:10 Cymbalta - PO 20 mg DAILY [facility] Administration Ferrous Sulfate 325 mg 01/15/18 10:00 01/19/18 10:08 Feosol - PO 325 mg DAILY [facility] Administration Heparin Sodium (Porcine) 5,000 unit 01/15/18 10:00 01/19/18 22:53 Heparin - SQ 5,000 unit BID [facility] Administration IV Flush 8 ml 01/18/18 13:14 01/20/18 06:55 Picc Line Flush IVPUSH 8 ml PRN PRN Administration Protocol Ertapenem 1 gm/ Sodium 50 mls @ 100 mls/hr 01/18/18 16:15 01/19/18 10:11 Chloride IVPB 100 mls/hr DAILY [facility] Administration Insulin Aspart 0 vial 01/15/18 07:00 01/20/18 06:54 Novolog Vial Sliding Scale - SQ Not Given ACHS [facility] Protocol Lactobacillus Acidophilus 1 tab 01/15/18 10:00 01/19/18 10:08 Bacid - PO 1 tab DAILY [facility] Administration Metoprolol Tartrate 75 mg 01/20/18 10:00 Lopressor - PO BID [facility] Polyethylene Glycol 17 gm 01/15/18 06:00 01/20/18 06:54 Miralax (For Daily Use) - PO 17 grams TID [facility] Administration Laboratory Results - last 24 hr 01/19/18 01/19/18 01/19/18 11:42 17:03 22:45 POC Glucometer 253 148 262 01/20/18 06:53 POC Glucometer 118 Microbiology 01/14/18 22:22 Urine - Urine [place] Urine Culture - Preliminary Escherichia Coli Esbl 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 Ertapenem day 11/08. Follow up final urine cultures. for PICC today. Family wants to take patient home, with PICC. Mental status better. Off IVF. Intermittent retention suspect with overflow incontinence, likely chronic with some component of neurogenic bladder compounded by poor mobilization and constipation. Renal bladder US noted. No acute concerns of retention. Bowel regimen and activity as tolerated. Continue ASA/plavix/amlodipine. DVTPPX with heparin ISS, diabetic diet Dispo home with PICC per family wishes in 24 hours pending urine cultures.
[2018-01-20] MEDS: DOCUSATE SODIUM 100 MG CAPSULE (FP) PO SCH ×2 (10:20→22:54)
[2018-01-20] MEDS: HEPARIN NA (PORCINE) 5,000 UNITS/ML 1ML VIAL SQ SCH ×2 (10:20→22:54)
[2018-01-20] MEDS: FERROUS SO4 325 MG TABLET (FP) PO SCH (10:20)
[2018-01-20] MEDS: ASPIRIN 81 MG CHEWABLE TABLETS PO SCH (10:21)
[2018-01-20] MEDS: LACTOBACILLUS ACIDOPHILUS 1 TABLET PO SCH (10:21)
[2018-01-20] MEDS: amLODIPine BESYLATE 10 MG TABLET (FP) PO SCH (10:21)
[2018-01-20] MEDS: CLOPIDOGREL BISULFATE 75 MG TABLET (FP) PO SCH (10:21)
[2018-01-20] MEDS: METOPROLOL TARTRATE 50 MG TABLET (FP) PO SCH ×2 (10:21→22:54)
[2018-01-20] MEDS: ERTAPENEM SODIUM 1 GM in SODIUM CHLORIDE 50 ML IVPB SCH (10:22)
[2018-01-20] MEDS: CALCIUM CARBONATE 650 MG TABLET PO SCH ×2 (10:23→22:55)
[2018-01-20] MEDS: DULoxetine HCL 20 MG CAPSULE.DR (FP) PO SCH (10:23)
--- NOTE | 2018-01-20 12:04 | PN ---
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, Physician History of Present Illness: stable no new issues - Current Medication List Current Medications: Active Medications Acetaminophen (Tylenol -) 650 mg PO QID PRN PRN Reason: FEVER Amlodipine Besylate (Norvasc -) 10 mg PO DAILY [facility] Last Admin: 01/20/18 10:21 Dose: 10 mg Aspirin (Asa -) 81 mg PO DAILY [facility] Last Admin: 01/20/18 10:21 Dose: 81 mg Atorvastatin Calcium (Lipitor -) 20 mg PO HS [facility] Last Admin: 01/19/18 22:54 Dose: 20 mg Bacitracin (Bacitracin -) 1 applic TP TID [facility] Last Admin: 01/20/18 06:55 Dose: 1 applic Calcium Carbonate (Calcium Carbonate -) 1,300 mg PO BID [facility] Last Admin: 01/20/18 10:23 Dose: 1,300 mg Clopidogrel Bisulfate (Plavix -) 75 mg PO DAILY [facility] Last Admin: 01/20/18 10:21 Dose: 75 mg Docusate Sodium (Colace -) 100 mg PO BID [facility] Last Admin: 01/20/18 10:20 Dose: 100 mg Duloxetine HCl (Cymbalta -) 20 mg PO DAILY [facility] Last Admin: 01/20/18 10:23 Dose: 20 mg Ferrous Sulfate (Feosol -) 325 mg PO DAILY [facility] Last Admin: 01/20/18 10:20 Dose: 325 mg Heparin Sodium (Porcine) (Heparin -) 5,000 unit SQ BID [facility] Last Admin: 01/20/18 10:20 Dose: 5,000 unit IV Flush (Picc Line Flush) 8 ml IVPUSH PRN PRN PRN Reason: Protocol Last Admin: 01/20/18 06:55 Dose: 8 ml Ertapenem 1 gm/ Sodium (Chloride) 50 mls @ 100 mls/hr IVPB DAILY [facility] Last Admin: 01/20/18 10:22 Dose: 100 mls/hr Insulin Aspart (Novolog Vial Sliding Scale -) 0 vial SQ ACHS [facility]; Protocol Last Admin: 01/20/18 06:54 Dose: Not Given Lactobacillus Acidophilus (Bacid -) 1 tab PO DAILY [facility] Last Admin: 01/20/18 10:21 Dose: 1 tab Metoprolol Tartrate (Lopressor -) 75 mg PO BID [facility] Last Admin: 01/20/18 10:21 Dose: 75 mg Polyethylene Glycol (Miralax (For Daily Use) -) 17 gm PO TID [facility] Last Admin: 01/20/18 06:54 Dose: 17 grams - Objective Vital Signs: Vital Signs Temperature 98.0 F 01/20/18 10:00 Pulse Rate 70 01/20/18 10:00 Respiratory Rate 18 01/20/18 10:00 Blood Pressure 128/70 01/20/18 10:00 O2 Sat by Pulse Oximetry (%) 100 01/19/18 21:00 Constitutional: Yes: No Distress, Calm Cardiovascular: Yes: Regular Rate and Rhythm Respiratory: Yes: Regular, CTA Bilaterally Gastrointestinal: Yes: Normal Bowel Sounds, Soft Musculoskeletal: Yes: WNL Extremities: Yes: WNL Neurological: Yes: Alert, Other Psychiatric: Yes: Other Labs: CBC, BMP 01/19/18 06:00 01/18/18 06:00 Assessment/Plan ams lethargy uti dehydration sensitivities noted plan continue ertapenam finish the course rest as per the team patient stable
[2018-01-20] MEDS ORDERED: PT OWN MED DRAWER 7, Y5N ONE (20:40)
[2018-01-20] MEDS: ATORVASTATIN CA 20 MG TABLET (FP) PO SCH (22:55)
[2018-01-21] MEDS: POLYETHYLENE GLYCOL 3350 119 GM BTL PO SCH ×2 (05:38→13:18)
[2018-01-21] MEDS: INSULIN SLIDING SCALE (NOVOLOG) 1 VIAL SQ SCH ×2 (06:06→11:20)
[2018-01-21] MEDS: BACITRACIN 15 GM TUBE TOPICAL OINTMENT TP SCH ×2 (06:07→13:18)
[2018-01-21] MEDS: ASPIRIN 81 MG CHEWABLE TABLETS PO SCH (09:31)
[2018-01-21] MEDS: LACTOBACILLUS ACIDOPHILUS 1 TABLET PO SCH (09:31)
[2018-01-21] MEDS: CLOPIDOGREL BISULFATE 75 MG TABLET (FP) PO SCH (09:32)
[2018-01-21] MEDS: HEPARIN NA (PORCINE) 5,000 UNITS/ML 1ML VIAL SQ SCH (09:32)
[2018-01-21] MEDS: DULoxetine HCL 20 MG CAPSULE.DR (FP) PO SCH (09:32)
[2018-01-21] MEDS: METOPROLOL TARTRATE 50 MG TABLET (FP) PO SCH (09:32)
[2018-01-21] MEDS: FERROUS SO4 325 MG TABLET (FP) PO SCH (09:32)
[2018-01-21] MEDS: amLODIPine BESYLATE 10 MG TABLET (FP) PO SCH (09:32)
[2018-01-21] MEDS: DOCUSATE SODIUM 100 MG CAPSULE (FP) PO SCH (09:33)
[2018-01-21] MEDS: CALCIUM CARBONATE 650 MG TABLET PO SCH (09:33)
[2018-01-21] MEDS: ERTAPENEM SODIUM 1 GM in SODIUM CHLORIDE 50 ML IVPB SCH (10:23)
--- NOTE | 2018-01-21 11:24 | PN ---
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, Physician History of Present Illness: stable no issues awake and alert baseline dementia - Current Medication List Current Medications: Active Medications Acetaminophen (Tylenol -) 650 mg PO QID PRN PRN Reason: FEVER Amlodipine Besylate (Norvasc -) 10 mg PO DAILY [facility] Last Admin: 01/21/18 09:32 Dose: 10 mg Aspirin (Asa -) 81 mg PO DAILY [facility] Last Admin: 01/21/18 09:31 Dose: 81 mg Atorvastatin Calcium (Lipitor -) 20 mg PO HS [facility] Last Admin: 01/20/18 22:55 Dose: 20 mg Bacitracin (Bacitracin -) 1 applic TP TID [facility] Last Admin: 01/21/18 06:07 Dose: 1 applic Calcium Carbonate (Calcium Carbonate -) 1,300 mg PO BID [facility] Last Admin: 01/21/18 09:33 Dose: 1,300 mg Clopidogrel Bisulfate (Plavix -) 75 mg PO DAILY [facility] Last Admin: 01/21/18 09:32 Dose: 75 mg Docusate Sodium (Colace -) 100 mg PO BID [facility] Last Admin: 01/21/18 09:33 Dose: 100 mg Duloxetine HCl (Cymbalta -) 20 mg PO DAILY [facility] Last Admin: 01/21/18 09:32 Dose: 20 mg Ferrous Sulfate (Feosol -) 325 mg PO DAILY [facility] Last Admin: 01/21/18 09:32 Dose: 325 mg Heparin Sodium (Porcine) (Heparin -) 5,000 unit SQ BID [facility] Last Admin: 01/21/18 09:32 Dose: 5,000 unit IV Flush (Picc Line Flush) 8 ml IVPUSH PRN PRN PRN Reason: Protocol Last Admin: 01/20/18 06:55 Dose: 8 ml Ertapenem 1 gm/ Sodium (Chloride) 50 mls @ 100 mls/hr IVPB DAILY [facility] Last Admin: 01/21/18 10:23 Dose: 100 mls/hr Insulin Aspart (Novolog Vial Sliding Scale -) 0 vial SQ ACHS [facility]; Protocol Last Admin: 01/21/18 11:20 Dose: 4 unit Lactobacillus Acidophilus (Bacid -) 1 tab PO DAILY [facility] Last Admin: 01/21/18 09:31 Dose: 1 tab Metoprolol Tartrate (Lopressor -) 75 mg PO BID [facility] Last Admin: 01/21/18 09:32 Dose: 75 mg Polyethylene Glycol (Miralax (For Daily Use) -) 17 gm PO TID [facility] Last Admin: 01/21/18 05:38 Dose: Not Given - Objective Vital Signs: Vital Signs Temperature 98.2 F 01/21/18 09:00 Pulse Rate 75 01/21/18 09:00 Respiratory Rate 18 01/21/18 09:00 Blood Pressure 164/79 01/21/18 09:00 O2 Sat by Pulse Oximetry (%) 95 01/21/18 09:00 Constitutional: Yes: No Distress, Calm Cardiovascular: Yes: Regular Rate and Rhythm Respiratory: Yes: Regular, CTA Bilaterally Gastrointestinal: Yes: Normal Bowel Sounds, Soft Musculoskeletal: Yes: WNL Extremities: Yes: WNL Neurological: Yes: Alert, Other (dementia) Psychiatric: Yes: Alert Labs: CBC, BMP 01/19/18 06:00 01/18/18 06:00 Assessment/Plan ams lethargy uti dehydration sensitivities noted plan continue ertapenam 10 mre days from tomorrow if patient goes home today rest as per the team patient stable
--- NOTE | 2018-01-21 13:38 | DS ---
Physical Exam: SUBJECTIVE: Patient seen and examined, pleasant, no concerns. OBJECTIVE: Vital Signs Period Temp Pulse Resp BP Sys/Iniguez Pulse Ox Last 24 Hr 97.7 F-98.6 F 72-77 18-18 110-164/59-79 95-97 PHYSICAL EXAM General: sitting in bed in no acute distress Chest: decreased effort, no rales or wheezing Abdomen:soft, NT nD, positive bowel sounds extremities: no edema Neuro: AA, pleasant, oriented to self, facial symmetry, moves all extremities freely LABS Laboratory Results - last 24 hr 01/20/18 01/20/18 01/21/18 16:46 23:00 05:44 POC Glucometer 201 260 99 01/21/18 11:16 POC Glucometer 224 Microbiology 01/14/18 22:22 Urine - Urine [place] Urine Culture - Final Escherichia Coli Esbl Administrative Program Specialist Escherichia Coli Esbl Administrative Program Specialist#2 Renal/Bladder Ultrasound Right kidney is normal size measuring 10.2 cm in length without hydronephrosis. Left kidney is mildly atrophic measuring 8.0 cm in length without hydronephrosis. Bilateral renal cortices are echogenic suggesting medical-renal disease. No shadowing intrarenal calculus identified. CT is more sensitive in detecting small renal calculi. There is a 1.3 x 1.3 x 1.4 cm simple appearing cortical cyst in the lower pole of the left kidney. There is symmetric flow related Doppler signal within the renal sinuses. The prevoid urinary bladder is well distended with a calculated volume of 389 mL. Bilateral distal ureteral jets are demonstrated, indicating outflow into the bladder. The urinary bladder wall is borderline thickness for degree of distention, measuring 3 mm. There is large post void residual volume in the urinary bladder measuring approximately 308 mL. IMPRESSION: 1. Very large post void residual volume in the urinary bladder measuring 308 mL. To be correlated clinically for etiology. 2. No hydronephrosis. Bilateral echogenic renal cortices suggests nonspecific medical- renal disease. 3. Asymmetric mild left renal atrophy is unchanged, possibly secondary to underlying vascular insufficiency. 4. Borderline thickened urinary bladder wall thickening may be secondary to chronic outlet obstruction or cystitis. Please correlate with urinalysis. HOSPITAL COURSE: Date of Admission:01/14/18 Date of Discharge: 01/21/18 Minutes to complete discharge: 40 Discharge Summary Reason For Visit: UTI Current Active Problems UTI (urinary tract infection) (Acute) Hospital Course: 87 year old female with a hx of CAD, dementia, DM, HTN, constipation, multiple UTIs was admitted with altered mental status. Per daughter, patient with similar presentation on prior UTIs. She has CT brain negative for concerns. She was found with UTI, initially received Ceftriaxone, then placed on zosyn. Infectious disease was consulted, her urine culture came back positive for 2 different strains of ESBL and she is recommended 14 days of ertapenem. Daughter wanted to take patient home with services and was comfortable with home IV antibiotics as had done prior. She had initial concerns for intermittent urinary retention. Her renal function was stable. She has bladder/renal US with results as above. She was placed on aggressive bowel regimen and intermittent bladder scan with no further retention concerns. She received PICC line and has been arranged for home antibiotics to done on 01/31. Condition: Stable - Instructions Diet, Activity, Other Instructions: You have a urinary infection. You are being discharged with a picc line and IV antibiotics. You need to keep the PICC line clean. You will have your antibiotic through that line. Your Antibiotic Ertapenem is till 01/31/2018. Blood tests (CBC, BMP, LFTs) in 1 week with results to your regular doctor or Dr. Ritchie (infectious disease). You need to follow up with your primary care doctor within 1 week. You need to follow up with your infectious diseases doctor. Make sure you are voiding normally. If you are unable to urinate or if you become constipated, talk to your doctor as these make you more likely to develop urinary infection. Continue taking your home medications as before. Referrals: Tiffany Ritchie MD [Staff Physician] - 1 Week Nisa Lyons MD [Primary Care Provider] - 1 Week Disposition: VNS/HOME HEALTH CARE - Home Medications Comprehensive Discharge Medication List: Ambulatory Orders Duloxetine HCl 20 mg PO DAILY 12/23/15 Ferrous Sulfate 325 mg PO DAILY 12/23/15 Metformin HCl 850 mg PO BID 12/23/15 Polyethylene Glycol 3350 [Miralax 119 gm Btl -] 17 gm PO TID 12/23/15 Docusate Sodium [Colace -] 100 mg PO BID #40 capsule 04/14/16 Calcium Carbonate - 1,300 mg PO BID #30 tablet 06/13/17 Lactobacillus Acidophilus [Bacid -] 1 tab PO DAILY tab 06/13/17 Metoprolol Succinate [Toprol XL -] 75 mg PO BID #180 tab.sr.24h 06/13/17 Tamsulosin HCl [Flomax -] 0.8 mg PO DAILY@0830 #30 cap 06/23/17 Amlodipine Besylate [Norvasc -] 10 mg PO DAILY 01/16/18 Atorvastatin Ca [Lipitor] 20 mg PO HS 01/16/18 Clopidogrel Bisulfate [Plavix] 75 mg PO DAILY 01/16/18 Aspirin [ASA -] 81 mg PO DAILY tab.chew 01/18/18 Bacitracin - [Bacitracin Topical Ointment -] 1 applic TP TID tube 01/18/18 Picc Line Flush [Picc Line Flush -] 8 ml IVPUSH PRN PRN #30 ml 01/18/18 Ertapenem Sodium [Invanz -] 1 gm IVPB DAILY #10 vial 01/21/18 This patient is new to me today: No Emergency Visit: No Critical Care patient: No - Discharge Referral Referred to [facility] Med P.C.: No
[2018-01-21 15:07] VITALS: BP 135/70; PULSE 79; TEMP 97.9
== END 2018-01-21 16:27 | disposition home health service (06) | DRG 689 ==
LOC: JER 19:12 → JERBED 23:43 → J7W 01-16 01:33
PROVIDERS: ADMIT Internal Medicine; ATTEND Hospitalist
PROC: 02HV33Z Insertion of Infusion Device into Superior Vena Cava, Percutaneous Approach (ICD-10-PCS; principal; 2018-01-19)
DX: N39.0 Urinary tract infection, site not specified (principal); G92 Toxic encephalopathy; G93.41 Metabolic encephalopathy; E87.1 Hypo-osmolality and hyponatremia; R41.82 Altered mental status, unspecified; F03.90 Unspecified dementia, unspecified severity, without behavioral disturbance, psychotic disturbance, mood disturbance, and anxiety; I25.10 Atherosclerotic heart disease of native coronary artery without angina pectoris; E11.9 Type 2 diabetes mellitus without complications; I10 Essential (primary) hypertension; E86.0 Dehydration; Z16.12 Extended spectrum beta lactamase (ESBL) resistance; K59.00 Constipation, unspecified; R33.9 Retention of urine, unspecified; E78.5 Hyperlipidemia, unspecified; Z95.1 Presence of aortocoronary bypass graft
CPT/HCPCS: 36415; 36569; 70450-TC; 71045-TC-FY; 76775-TC; 76856-TC; 77001-TC-FY; 80048; 80053; 81003; 81015; 82140; 82962; 83735; 84100; 84484; 85025; 85027; 87086; 87186; 93005; 93010; 97116-GP; 97162-GP; 99285-25; C1751; J1644; J7030

== ENCOUNTER 2018-05-07 15:30 | Inpatient (IN) | payer OTHER ==
--- NOTE | 2018-05-07 16:52 | PDOC ---
History of Present Illness - General Chief Complaint: Pain, Acute Stated Complaint: Blood Pressure Problem Time Seen by Provider: 05/07/18 16:27 History Source: Family, Other (home care liaison) - History of Present Illness Initial Comments: 05/07/18 16:51 87 yo female Filipino speaking pmh of multiple TIAs, left eye blindness, multiple UTIs (recently treated), dementia (nonverbal), quadruple bypass (2003) , diabetes, hypertension, hypercholesterolemia, angina presents to the ED for altered mental status that began at 1pm today. Patient recently admitted for UTI /hydro. Patient lives at home and has 24 hour home health aide care. Aide states after patient woke up from a nap she noticed a change in mentation and patient not following commands as usual. Aide mentions the only complaint noted was right lower quadrant abdominal pain. No recent changes in bowel or urinary habits. Unable to perform ROS due to dementia Past History - Past Medical History Allergies/Adverse Reactions: Allergies Allergy/AdvReac Type Severity Reaction Status Date / Time quetiapine [From Seroquel] Allergy Verified 05/07/18 15:41 ranolazine [From Ranexa] Allergy Verified 05/07/18 15:41 Home Medications: Ambulatory Orders Duloxetine HCl 20 mg PO DAILY 12/23/15 Ferrous Sulfate 325 mg PO DAILY 12/23/15 Metformin HCl 850 mg PO BID 12/23/15 Polyethylene Glycol 3350 [Miralax 119 gm Btl -] 17 gm PO TID 12/23/15 Docusate Sodium [Colace -] 100 mg PO BID #40 capsule 04/14/16 Calcium Carbonate - 1,300 mg PO BID #30 tablet 06/13/17 Lactobacillus Acidophilus [Bacid -] 1 tab PO DAILY tab 06/13/17 Metoprolol Succinate [Toprol XL -] 75 mg PO BID #180 tab.sr.24h 06/13/17 Tamsulosin HCl [Flomax -] 0.8 mg PO DAILY@0830 #30 cap 06/23/17 Amlodipine Besylate [Norvasc -] 10 mg PO DAILY 01/16/18 Atorvastatin Ca [Lipitor] 20 mg PO HS 01/16/18 Clopidogrel Bisulfate [Plavix] 75 mg PO DAILY 01/16/18 Aspirin [ASA -] 81 mg PO DAILY tab.chew 01/18/18 Bacitracin - [Bacitracin Topical Ointment -] 1 applic TP TID tube 01/18/18 Bisacodyl Suppository [Dulcolax Suppository -] 10 mg RC DAILY PRN #30 supp.rect 04/16/18 Sennosides [Senna] 8.6 mg PO HS #30 tablet 04/16/18 Anemia: No Asthma: No Cancer: No Cardiac Disorders: Yes (angina) CVA: Yes COPD: No CHF: No Dementia: Yes Diabetes: Yes GI Disorders: Yes (Constipation) Disorders: Yes (UTI) HTN: Yes Hypercholesterolemia: Yes Liver Disease: No Seizures: No Thyroid Disease: No - Surgical History Abdominal Surgery: Yes Appendectomy: Yes Cardiac Surgery: Yes (QUAD. BYPASS, CARDIAC STENT) Cholecystectomy: No Lung Surgery: No Neurologic Surgery: No Orthopedic Surgery: No - Immunization History Immunization Up to Date: Yes - Suicide/Smoking/Psychosocial Hx Smoking Status: No Smoking History: Unknown if ever smoked Have you smoked in the past 12 months: No Number of Cigarettes Smoked Daily: 0 Hx Alcohol Use: No Drug/Substance Use Hx: No Substance Use Type: None Hx Substance Use Treatment: No Review of Systems - Review of Systems Able to Perform ROS?: No (dementia ) *Physical Exam - Vital Signs Last Vital Signs Temp Pulse Resp BP Pulse Ox 102 H 20 159/80 100 05/07/18 15:39 05/07/18 15:39 05/07/18 15:39 05/07/18 15:39 - Physical Exam General Appearance: Yes: Nourished, Appropriately Dressed, Apparent Distress Respiratory/Chest: positive: Lungs Clear, Normal Breath Sounds Cardiovascular: positive: Regular Rhythm, Regular Rate, Murmur (blowing). negative: Edema, JVD Vascular Pulses: Dorsalis-Pedis (R): 3+, Doralis-Pedis (L): 3+ Gastrointestinal/Abdominal: positive: Normal Bowel Sounds, Flat, Soft. negative : Pulsatile Mass, Distended, Guarding, Rebound, Tenderness Musculoskeletal: negative: CVA Tenderness (R), CVA Tenderness (L) Integumentary: positive: Normal Color, Dry, Warm Neurologic: positive: Alert. negative: Fully Oriented, Motor Strength 5/5 (can not assess), Facial Droop ED Treatment Course - LABORATORY CBC & Chemistry Diagram: 05/07/18 16:30 05/07/18 16:30 - ADDITIONAL ORDERS Additional order review: Laboratory Results 05/07/18 05/07/18 15:51 15:49 POC Glucometer 364.93623 [id number] 05/07/18 05/07/18 15:51 15:49 POC Glucometer 364.23343 [phone] - RADIOLOGY Radiology Studies Ordered: Category Date Time Status HEAD CT WITHOUT CONTRAST [CT] Stat CT Scan 05/07/18 16:36 Ordered CHEST X-RAY PORTABLE* [RAD] Stat Radiology 05/07/18 16:34 Ordered Medical Decision Making - Medical Decision Making 05/07/18 18:00 87 yo female pmh of multiple UTIs presents to the ED today for change in mental status. Patient not following commands. Exam: diffuse heart murmur, lungs clear bilaterally, abdomen non distended, no guarding or rebound. No CVA tenderness. Lactic of 4.5 UA 3+ leukocytes Treating with Zosyn and Vanc as last time patient was sensitive Spoke with Dr. Johnson wo would like the patient admitted to Hospitalist 05/07/18 18:47 *DC/Admit/Observation/Transfer Diagnosis at time of Disposition: UTI (urinary tract infection) Qualifiers: Urinary tract infection type: site unspecified Hematuria presence: with hematuria Qualified Code(s): N39.0 - Urinary tract infection, site not specified - Discharge Dispostion Condition at time of disposition: Stable Decision to Admit order: Yes - Referrals Referrals: Nisa Lyons MD [Primary Care Provider] - - Patient Instructions - Post Discharge Activity
[2018-05-07 17:06] LABS: BASO % 0.1 % (0-2.0); HEMATOCRIT 34.6 % (32.4-45.2); HEMOGLOBIN 11.8 GM/dL (10.7-15.3); LYMPH % 4.6 % (8-40); MEAN CELL VOLUME 85.2 fl (80-96); MEAN PLT VOLUME 8.7 fl (7.5-11.1); MONO % 2.8 % (3.8-10.2); NEUT % 92.5 % (42.8-82.8); PLATELET COUNT 327 K/MM3 (134-434); RBC 4.06 M/mm3 (3.60-5.2); RDW 14.2 % (11.6-15.6); WHITE BLOOD COUNT 10.6 K/mm3 (4.0-10.0)
[2018-05-07 17:07] LABS: VENOUS PH 7.37 (7.32-7.42); VENOUS PO2 31.5 mmHg (28-48)
[2018-05-07 17:09] LABS: URINE APPEARANCE CLOUDY; URINE BILIRUBIN NEGATIVE (<2.0 mg/dL); URINE COLOR YELLOW; URINE GLUCOSE (UA) 3+ (NEGATIVE); URINE KETONE TRACE (NEGATIVE); URINE NITRITE NEGATIVE (NEGATIVE); URINE UROBILINOGEN NEGATIVE mg/dL (0.2-1.0)
[2018-05-07 17:13] LABS: URINE LEUK ESTERASE 3+ (NEGATIVE); URINE PROTEIN 2+ (NEGATIVE)
[2018-05-07 17:14] LABS: URINE BACTERIA RARE /hpf (NONE SEEN); URINE HYALINE CAST 2 /lpf
[2018-05-07 17:25] LABS: INR 0.97 (0.83-1.09)
[2018-05-07 17:27] LABS: ACTIVATED PTT 28.9 SECONDS (25.2-36.5)
[2018-05-07] MEDS ORDERED: PIPERACILLIN/TAZOB 3.375 GM 3.375 GM in DEXTROSE 5%-WATER - 50 ML IVPB ONE (17:31)
[2018-05-07] MEDS ORDERED: ACETAMINOPHEN 1000 MG/100 ML VIAL (NON FORMULARY) IVPB ONE (17:32)
[2018-05-07 17:33] LABS: PLATELET ESTIMATE ADEQUATE
[2018-05-07] MEDS ORDERED: PIPERACILLIN/TAZOB 3.375 GM 3.375 GM/50 ML BAG IVPB ONE (17:35)
[2018-05-07] MEDS ORDERED: ACETAMINOPHEN INJECTION 100 ML IVPB ONE (17:35)
[2018-05-07 17:43] LABS: ANION GAP 14 MMOL/L (8-16); BILIRUBIN,TOTAL 0.3 mg/dL (0.2-1.0); BLOOD UREA NITROGEN 15 mg/dL (7-18); CALCIUM 9.7 mg/dL (8.5-10.1); CHLORIDE 90 mmol/L (98-107); CO2 21 mmol/L (21-32); CREATININE 0.9 mg/dL (0.55-1.02); POTASSIUM 4.6 mmol/L (3.5-5.1); SGOT/AST 11 U/L (15-37); SGPT/ALT 13 U/L (12-78); SODIUM 125 mmol/L (136-145)
[2018-05-07 17:44] LABS: ALK PHOS 111 U/L (45-117)
[2018-05-07 17:54] LABS: GLUCOSE,RANDOM 307 mg/dL (74-106)
[2018-05-07] MEDS ORDERED: SODIUM CHLORIDE 1,000 ML IV STA (17:57)
--- NOTE | 2018-05-07 18:14 | PDOC ---
Attending Attestation - Resident Resident Name: Cyrus Rogers - ED Attending Attestation I have performed the following: I have examined & evaluated the patient, The case was reviewed & discussed with the resident, I agree w/resident's findings & plan, Exceptions are as noted - HPI HPI: 05/07/18 18:16 frail appearing 87 yo female BIBA because of increased confusion head ncat eyes left cornea is opaque neck supple lungs scattered ronchi cvs [id number] abd flat neuro left sided neglect BECAUSE she is blind in her left eye ext no erythema skin warm and dry - Physicial Exam PE: 05/07/18 21:35 please see the above physical exam - Medical Decision Making 05/07/18 18:23 pt is febrile and has UTI, IMP urosepsis and her Go=[id number],pt receiving IVF and antibiotics old records reveals ESBL movie producer which is sensitive to pipericillin 05/07/18 18:25 ADMITTED
--- NOTE | 2018-05-07 18:36 | HP ---
CHIEF COMPLAINT: AMS PCP: Dr. Johnson HISTORY OF PRESENT ILLNESS: Hx obtained from daughter. Limited hx due to patient mental status. Patient is a 87 yo F with a significant PMHx of Dementia, left eye blindness, DM , CVA, HTN, HLD, quadruple bypass (2003), recurrent UTIs, recently admitted for UTI, presented with AMS that started this morning. Daughter reports patient became altered this AM, not following commands and was complaining of lower abdominal pain to the home health aide. Daughter states although patient is demented, she is still able to communicate and and follow commands at baseline. Daughter also states patient usually experiences these symptoms every time she gets a UTI. She was recently admitted for UTI/[place]. Patient's previous cultures were positive for ESBL E. coli, Pseudomonas. ER course was notable for: (1) 100.8 Temp, Lactic 4.5, + U/a (2) Na 125 (128 corrected with 305 glucose) Recent Travel: none PAST MEDICAL HISTORY: per hpi PAST SURGICAL HISTORY: n/a Social History: Smoking: n/a Alcohol: n/a Drugs: n/a Family History: Allergies quetiapine [From Seroquel] Allergy (Verified 05/07/18 15:41) ranolazine [From Ranexa] Allergy (Verified 05/07/18 15:41) HOME MEDICATIONS: Home Medications Medication Instructions Recorded Duloxetine HCl 20 mg PO DAILY 12/23/15 Ferrous Sulfate 325 mg PO DAILY 12/23/15 Metformin HCl 850 mg PO BID 12/23/15 Polyethylene Glycol 3350 [Miralax 17 gm PO TID 12/23/15 119 gm Btl -] Docusate Sodium [Colace -] 100 mg PO BID #40 capsule 04/14/16 Calcium Carbonate - 1,300 mg PO BID #30 tablet 06/13/17 Lactobacillus Acidophilus [Bacid -] 1 tab PO DAILY tab 06/13/17 Metoprolol Succinate [Toprol XL -] 75 mg PO BID #180 tab.sr.24h 06/13/17 Tamsulosin HCl [Flomax -] 0.8 mg PO DAILY@0830 #30 cap 06/23/17 Amlodipine Besylate [Norvasc -] 10 mg PO DAILY 01/16/18 Atorvastatin Ca [Lipitor] 20 mg PO HS 01/16/18 Clopidogrel Bisulfate [Plavix] 75 mg PO DAILY 01/16/18 Aspirin [ASA -] 81 mg PO DAILY tab.chew 01/18/18 Bacitracin - [Bacitracin Topical 1 applic TP TID tube 01/18/18 Ointment -] Bisacodyl Suppository [Dulcolax 10 mg RC DAILY PRN #30 supp.rect 04/16/18 Suppository -] Sennosides [Senna] 8.6 mg PO HS #30 tablet 04/16/18 REVIEW OF SYSTEMS unable to obtain PHYSICAL EXAMINATION Vital Signs - 24 hr 05/07/18 05/07/18 05/07/18 15:39 16:35 17:31 Temperature 100.8 F H 100.6 F H Pulse Rate 102 H 82 Pulse Rate [ 94 H Left Apical] Respiratory 20 16 16 Rate Blood Pressure 159/80 106/68 Blood Pressure 152/68 [Left Arm] O2 Sat by Pulse 100 96 96 Oximetry (%) GENERAL: Frail appearing, not following commands (not at baseline as per daughter), in no acute distress. EYES: Pupils equal, round and reactive to light EARS, NOSE, THROAT: oropharynx clear without exudates. dry mucous membranes. NECK: Normal range of motion, supple without lymphadenopathy, JVD, or masses. LUNGS: scattered rhonchi HEART: RRR, 2/6 murmur MARINA border, JESSA border ABDOMEN: +BS, grimacing to lower abdominal palpation UPPER EXTREMITIES: 2+ pulses, warm, No peripheral edema. LOWER EXTREMITIES: 2+ pulses, warm, No peripheral edema. NEUROLOGICAL: unable to perform Laboratory Results - last 24 hr 05/07/18 05/07/18 05/07/18 15:49 15:51 16:30 WBC 10.6 H RBC 4.06 Hgb 11.8 Hct 34.6 MCV 85.2 MCH 29.0 MCHC 34.0 RDW 14.2 Plt Count 327 MPV 8.7 Absolute Neuts (auto) 9.8 H Neutrophils % 92.5 H D Neutrophils % (Manual) 92.0 H Band Neutrophils % 0.0 Lymphocytes % 4.6 L D Lymphocytes % (Manual) 4.0 L Monocytes % 2.8 L Monocytes % (Manual) 4 Eosinophils % 0.0 D Eosinophils % (Manual) 0.0 Basophils % 0.1 Basophils % (Manual) 0.0 Nucleated RBC % 0 Platelet Estimate Adequate PT with INR INR PTT (Actin FS) VBG pH POC VBG pCO2 POC VBG pO2 Mixed VBG HCO3 Sodium Potassium Chloride Carbon Dioxide Anion Gap BUN Creatinine Creat Clearance w eGFR POC Glucometer 352.99586 364.87000 Random Glucose Lactic Acid Calcium Total Bilirubin AST ALT Alkaline Phosphatase Troponin I Total Protein Albumin Urine Color Urine Appearance Urine pH Ur Specific [place] Urine Protein Urine Glucose (UA) Urine Ketones Urine Blood Urine Nitrite Urine Bilirubin Urine Urobilinogen Ur Leukocyte Esterase Urine WBC (Auto) Urine RBC (Auto) Urine Bacteria Hyaline Casts 05/07/18 05/07/18 05/07/18 16:30 16:30 16:30 WBC RBC Hgb Hct MCV MCH MCHC RDW Plt Count MPV Absolute Neuts (auto) Neutrophils % Neutrophils % (Manual) Band Neutrophils % Lymphocytes % Lymphocytes % (Manual) Monocytes % Monocytes % (Manual) Eosinophils % Eosinophils % (Manual) Basophils % Basophils % (Manual) Nucleated RBC % Platelet Estimate PT with INR 11.00 INR 0.97 PTT (Actin FS) 28.9 VBG pH 7.37 POC VBG pCO2 39.0 D POC VBG pO2 31.5 D Mixed VBG HCO3 22.3 Sodium Potassium Chloride Carbon Dioxide Anion Gap BUN Creatinine Creat Clearance w eGFR POC Glucometer Random Glucose Lactic Acid Calcium Total Bilirubin AST ALT Alkaline Phosphatase Troponin I Total Protein Albumin Urine Color Yellow Urine Appearance Cloudy Urine pH 7.0 D Ur Specific [place] 1.008 Urine Protein 2+ H Urine Glucose (UA) 3+ H Urine Ketones Trace H Urine Blood 1+ H Urine Nitrite Negative Urine Bilirubin Negative Urine Urobilinogen Negative Ur Leukocyte Esterase 3+ H Urine WBC (Auto) 277 Urine RBC (Auto) 5 Urine Bacteria Rare Hyaline Casts 2 05/07/18 05/07/18 05/07/18 16:30 16:30 16:30 WBC RBC Hgb Hct MCV MCH MCHC RDW Plt Count MPV Absolute Neuts (auto) Neutrophils % Neutrophils % (Manual) Band Neutrophils % Lymphocytes % Lymphocytes % (Manual) Monocytes % Monocytes % (Manual) Eosinophils % Eosinophils % (Manual) Basophils % Basophils % (Manual) Nucleated RBC % Platelet Estimate PT with INR INR PTT (Actin FS) VBG pH POC VBG pCO2 POC VBG pO2 Mixed VBG HCO3 Sodium 125 L Potassium 4.6 Chloride 90 L Carbon Dioxide 21 Anion Gap 14 BUN 15 Creatinine 0.9 Creat Clearance w eGFR 59.23 POC Glucometer Random Glucose 307 H* Lactic Acid 4.5 H* Calcium 9.7 Total Bilirubin 0.3 AST 11 L ALT 13 Alkaline Phosphatase 111 D Troponin I < 0.02 Total Protein 9.0 H Albumin 4.0 Urine Color Urine Appearance Urine pH Ur Specific [place] Urine Protein Urine Glucose (UA) Urine Ketones Urine Blood Urine Nitrite Urine Bilirubin Urine Urobilinogen Ur Leukocyte Esterase Urine WBC (Auto) Urine RBC (Auto) Urine Bacteria Hyaline Casts ASSESSMENT/PLAN: 87 yo F with a significant PMHx of Dementia, left eye blindness, DM, CVA, HTN, HLD, quadruple bypass (2003), recurrent UTIs, recently admitted for UTI, presented with AMS #Sepsis 2/2 to UTI - Temp 100.8, 102 HR, 4.5 Lactic Acid -Ucx, bcx pending -U/A positive 3+ LE, WBC 277 -Hx Recurrent UTI's -IV abx: Zosyn (day 1) -given Vanc in ED -ID consulted: Dr. Ritchie -IV fluids @ 42ml/hour #Acute Metabolic Encephalopathy -likely infectious due to UTI vs Hyponatremia -Head CT neg -Na 125, corrected 128 with Glucose -IV fluids -monitor #Lactic acidosis -4.5 -mixed picture, Sepsis vs. Metformin use -hold Metformin -Fu repeat Lactic acid -Iv fluids @ 42@ml/hour #DM -ISS -BGM #HTN/HLD -cont. Home meds. Med rec needed -Norvasc 10 -Toprol 75mg BID -Lipitor 20mg HS -ASA 81 -Plavix 75mg #FEN -NS @ 42ml/hour -monitor -NPO #Dvt: Hep sq Med rec needed Visit type - Emergency Visit Emergency Visit: Yes ED Registration Date: 05/07/18 Care time: The patient presented to the Emergency Department on the above date and was hospitalized for further evaluation of their emergent condition. - New Patient This patient is new to me today: Yes Date on this admission: 05/07/18 - Critical Care Critical Care patient: No Hospitalist Screening - Colonoscopy Questionnaire Colonoscopy Questionnaire: Colonoscopy Questionnaire - Patient: 50 - 75 years old and never had a screening colonoscopy: Unknown History of colon or rectal polyps, or CA: Unknown History of IBD, Crohn's disease or UC: Unknown History of abdominal radiation therapy as a child: Unknown - Relative: 1 with colon or rectal CA, or polyps at age 60 or younger: Unknown Colon or rectal CA diagnosed at age 45 or younger: Unknown Multiple relatives with colon or rectal CA: Unknown - Outcome: Screening Result: Negative Screen
[2018-05-07] MEDS ORDERED: VANCOMYCIN 1,000 MG in DEXTROSE 5%-WATER - 250 ML IVPB ONE (18:45)
[2018-05-07] MEDS ORDERED: BISACODYL 10 MG SUPP.RECT RC PRN (19:30)
[2018-05-07] MEDS ORDERED: SODIUM CHLORIDE 1,000 ML IV SCH (19:30)
--- NOTE | 2018-05-07 19:48 | PN ---
Teaching Attending Note Name of Resident: Kevin Montenegro ATTENDING PHYSICIAN STATEMENT I saw and evaluated the patient. I reviewed the resident's note and discussed the case with the resident. I agree with the resident's findings and plan as documented. SUBJECTIVE: Patient is an 87 year old woman with past medical history of multiple TIAs, left eye blindness, multiple UTIs (ESBL E. coli), dementia (nonverbal), quadruple bypass (2003), diabetes, hypertension, hypercholesterolemia, angina who presents to the ER for altered mental status that began at 1pm today. Patient lives at home and has 24 hour home health aide care. Aide states after patient woke up from a nap she noticed a change in mentation and patient not following commands as usual. Aide mentions the only complaint noted was right lower quadrant abdominal pain. No recent changes in bowel or urinary habits. Patient is unable to provide information due to dementia. OBJECTIVE: Alert Vital Signs Period Temp Pulse Resp BP Sys/Iniguez Pulse Ox Last 24 Hr 100.6 F-100.8 F 82-102 16-20 106-159/68-80 96-100 HEENT: No Jaundice, eye redness or discharge, PERRLA, EOMI. No facial asymmetry. Normocephalic, atraumatic. External ears are normal; No nasal discharge. Neck: Supple, nontender. No palpable adenopathy or thyromegaly. No JVD Chest: Good effort. Clear to auscultation and percussion. Heart: Regular. No S3 or rub; 2/6 JAIME Abdomen: Not distended, soft, nontender and no HSM. No rebound or guarding. Normoactive bowel sounds. Ext: Peripheral pulses intact. No leg edema. Skin: Warm and dry. No petechiae, rash or ecchymosis. Neuro: Alert. Unable to follow commands. Withdraws to painful stimuli. DTR are symmetric. Current Medications Generic Name Dose Route Start Last Admin Trade Name Freq PRN Reason Stop Dose Admin Amlodipine Besylate 10 mg 05/08/18 10:00 Norvasc - PO DAILY SEAN Aspirin 81 mg 05/08/18 10:00 Asa - PO DAILY SEAN Atorvastatin Calcium 20 mg 05/07/18 22:00 Lipitor - PO HS SEAN Bisacodyl 10 mg 05/07/18 19:30 Dulcolax Suppository - RC DAILY PRN CONSTIPATION Calcium Carbonate 1,300 mg 05/07/18 22:00 Calcium Carbonate - PO BID [facility] Clopidogrel Bisulfate 75 mg 05/08/18 10:00 Plavix - PO DAILY [facility] Docusate Sodium 100 mg 05/07/18 22:00 Colace - PO BID [facility] Duloxetine HCl 20 mg 05/08/18 10:00 Cymbalta - PO DAILY [facility] Ferrous Sulfate 325 mg 05/08/18 10:00 Feosol - PO DAILY [facility] Vancomycin HCl 1,000 mg/ 250 mls @ 166.667 mls/hr 05/07/18 18:45 Dextrose IVPB 05/07/18 20:14 ONCE ONE Protocol Piperacillin Sod/Tazobactam 50 mls @ 100 mls/hr 05/08/18 02:00 Sod 3.375 gm/ Dextrose IVPB Q8H-IV SEAN Protocol Sodium Chloride 1,000 mls @ 42 mls/hr 05/07/18 19:30 Normal Saline - IV ASDIR SEAN Piperacillin Sod/Tazobactam 50 mls @ 100 mls/hr 05/08/18 02:00 Sod 3.375 gm/ Dextrose IVPB 05/08/18 10:29 Q8H-IV [facility] Protocol Insulin Aspart 1 vial 05/07/18 22:00 Novolog Vial Sliding Scale - SQ ACHS [facility] Protocol Metoprolol Succinate 75 mg 05/07/18 22:00 Toprol Xl - PO BID [facility] Polyethylene Glycol 17 gm 05/07/18 22:00 Miralax (For Daily Use) - PO TID [facility] Senna 1 tab 05/07/18 22:00 Senna - PO HS [facility] Tamsulosin HCl 0.8 mg 05/08/18 08:30 Flomax - PO DAILY@0830 [facility] Home Medications Medication Instructions Recorded Duloxetine HCl 20 mg PO DAILY 12/23/15 Ferrous Sulfate 325 mg PO DAILY 12/23/15 Metformin HCl 850 mg PO BID 12/23/15 Polyethylene Glycol 3350 [Miralax 17 gm PO TID 12/23/15 119 gm Btl -] Docusate Sodium [Colace -] 100 mg PO BID #40 capsule 04/14/16 Calcium Carbonate - 1,300 mg PO BID #30 tablet 06/13/17 Lactobacillus Acidophilus [Bacid -] 1 tab PO DAILY tab 06/13/17 Metoprolol Succinate [Toprol XL -] 75 mg PO BID #180 tab.sr.24h 06/13/17 Tamsulosin HCl [Flomax -] 0.8 mg PO DAILY@0830 #30 cap 06/23/17 Amlodipine Besylate [Norvasc -] 10 mg PO DAILY 01/16/18 Atorvastatin Ca [Lipitor] 20 mg PO HS 01/16/18 Clopidogrel Bisulfate [Plavix] 75 mg PO DAILY 01/16/18 Aspirin [ASA -] 81 mg PO DAILY tab.chew 01/18/18 Bacitracin - [Bacitracin Topical 1 applic TP TID tube 01/18/18 Ointment -] Bisacodyl Suppository [Dulcolax 10 mg RC DAILY PRN #30 supp.rect 04/16/18 Suppository -] Sennosides [Senna] 8.6 mg PO HS #30 tablet 04/16/18 Abnormal Lab Results 05/07/18 05/07/18 05/07/18 16:30 16:30 16:30 WBC 10.6 H Absolute Neuts (auto) 9.8 H Neutrophils % 92.5 H D Neutrophils % (Manual) 92.0 H Lymphocytes % 4.6 L D Lymphocytes % (Manual) 4.0 L Monocytes % 2.8 L Sodium 125 L Chloride 90 L Random Glucose 307 H* Lactic Acid AST 11 L Total Protein 9.0 H Urine Protein 2+ H Urine Glucose (UA) 3+ H Urine Ketones Trace H Urine Blood 1+ H Ur Leukocyte Esterase 3+ H 05/07/18 16:30 WBC Absolute Neuts (auto) Neutrophils % Neutrophils % (Manual) Lymphocytes % Lymphocytes % (Manual) Monocytes % Sodium Chloride Random Glucose Lactic Acid 4.5 H* AST Total Protein Urine Protein Urine Glucose (UA) Urine Ketones Urine Blood Ur Leukocyte Esterase ASSESSMENT AND PLAN: 1. Sepsis due to UTI - AMS is likely due associated toxic metabolic encephalopathy. Had prior ESBL E coli sensitive to Zosyn which will be used pending culture report. Lactic acidosis likely partly due to metformin. Got 2 liters IV NS already. DC metformin, continue IV NS, place on contact isolation and trend lactic acid. Hyponatremia likely due to hyperglycemia. Continue comprehensive care or dementia. 2. DM - For now, we will hold the home diabetes drugs and implement sliding scale insulin regimen. Provide comprehensive diabetes care with patient teaching and counseling about the importance of euglycemia, eye care and foot care. 3. DVT prophylaxis - Lovenox 40 mg SQ q 24 hours. 4. Advance directives - Full code
[2018-05-07] MEDS ORDERED: VANCOMYCIN 1 GRAM (PRE-DOCKED) 1,000 MG/250 ML BAG IVPB ONE (19:50)
[2018-05-07] MEDS ORDERED: ACETAMINOPHEN 325 MG TABLET (FP) PO PRN (19:52)
[2018-05-07] MEDS: ATORVASTATIN CA 20 MG TABLET (FP) PO SCH ×2 (22:32→23:39)
[2018-05-07] MEDS: HEPARIN NA (PORCINE) 5,000 UNITS/ML 1ML VIAL SQ SCH (22:32)
[2018-05-07] MEDS: metoPROLOL SUCCINATE 25 MG TAB.SR.24H (FP) PO SCH ×2 (22:32→23:39)
[2018-05-07] MEDS: CALCIUM CARBONATE 650 MG TABLET PO SCH ×2 (22:32→23:39)
[2018-05-07] MEDS: SENNOSIDES 8.6MG TABLET (FP) PO SCH ×2 (22:32→23:39)
[2018-05-07] MEDS: POLYETHYLENE GLYCOL 3350 119 GM BTL PO SCH ×2 (22:33→23:39)
[2018-05-07] MEDS: INSULIN SLIDING SCALE (NOVOLOG) 1 VIAL SQ SCH (22:33)
[2018-05-07] MEDS: DOCUSATE SODIUM 100 MG CAPSULE (FP) PO SCH ×2 (22:33→23:39)
[2018-05-08 01:07] VITALS: BMI 17.3
[2018-05-08] MEDS ORDERED: PIPERACILLIN/TAZOBACTAM 3.375 GM VIAL IVPB ONE ×2 (02:04→10:23)
[2018-05-08] MEDS ORDERED: DEXTROSE 5%-WATER - 50 ML IVPB ONE ×2 (02:05→10:23)
[2018-05-08] MEDS: PIPERACILLIN/TAZOB 3.375 GM 3.375 GM in DEXTROSE 5%-WATER - 50 ML IVPB SCH ×4 (02:17→14:55)
[2018-05-08] MEDS ORDERED: HEPARIN NA (PORCINE) 5,000 UNITS/ML 1ML VIAL SQ SCH (06:00)
[2018-05-08] MEDS: POLYETHYLENE GLYCOL 3350 119 GM BTL PO SCH ×4 (06:11→21:15)
[2018-05-08] MEDS: INSULIN SLIDING SCALE (NOVOLOG) 1 VIAL SQ SCH ×3 (06:11→17:37)
[2018-05-08] MEDS: HEPARIN NA (PORCINE) 5,000 UNITS/ML 1ML VIAL SQ SCH ×3 (06:12→21:14)
[2018-05-08 08:28] LABS: HEMATOCRIT 26.1 % (32.4-45.2); HEMOGLOBIN 8.6 GM/dL (10.7-15.3); MCH 28.1 pg (25.7-33.7); MEAN CELL VOLUME 85.1 fl (80-96); MEAN PLT VOLUME 8.2 fl (7.5-11.1); PLATELET COUNT 227 K/MM3 (134-434); RBC 3.06 M/mm3 (3.60-5.2); RDW 14.6 % (11.6-15.6); WHITE BLOOD COUNT 8.1 K/mm3 (4.0-10.0)
[2018-05-08 08:31] LABS: CALCIUM 8.4 mg/dL (8.5-10.1); CHLORIDE 102 mmol/L (98-107); POTASSIUM 3.6 mmol/L (3.5-5.1); SODIUM 135 mmol/L (136-145)
[2018-05-08] MEDS: TAMSULOSIN HCL 0.4 MG CAP.ER.24H (FP) PO SCH (08:33)
[2018-05-08 08:37] LABS: ALBUMIN 2.9 g/dl (3.4-5.0); ALK PHOS 68 U/L (45-117); ANION GAP 10 MMOL/L (8-16); BILIRUBIN,TOTAL 0.3 mg/dL (0.2-1.0); BLOOD UREA NITROGEN 12 mg/dL (7-18); CO2 23 mmol/L (21-32); CREATININE 0.7 mg/dL (0.55-1.02); GLUCOSE,RANDOM 112 mg/dL (74-106); MAGNESIUM 1.8 mg/dL (1.8-2.4); SGOT/AST 7 U/L (15-37); SGPT/ALT 11 U/L (12-78); TOT PROT 6.3 g/dl (6.4-8.2)
[2018-05-08] MEDS ORDERED: SODIUM CHLORIDE 0.45% 1,000 ML IV SCH (09:00)
[2018-05-08] MEDS ORDERED: POTASSIUM CHLORIDE TABS 20 MEQ TABLET.ER (FP) PO ONE (09:00)
[2018-05-08] MEDS: SODIUM CHLORIDE 0.45% 1,000 ML IV SCH (09:40)
[2018-05-08] MEDS ORDERED: PIPERACILLIN/TAZOB 3.375 GM 3.375 GM in DEXTROSE 5%-WATER - 50 ML IVPB ONE (10:00)
[2018-05-08] MEDS: FERROUS SO4 325 MG TABLET (FP) PO SCH (10:33)
[2018-05-08] MEDS: CLOPIDOGREL BISULFATE 75 MG TABLET (FP) PO SCH (10:34)
[2018-05-08] MEDS: metoPROLOL SUCCINATE 25 MG TAB.SR.24H (FP) PO SCH ×2 (10:34→21:15)
[2018-05-08] MEDS: CALCIUM CARBONATE 650 MG TABLET PO SCH ×2 (10:34→21:15)
[2018-05-08] MEDS: ASPIRIN 81 MG CHEWABLE TABLETS PO SCH (10:34)
[2018-05-08] MEDS: DOCUSATE SODIUM 100 MG CAPSULE (FP) PO SCH ×2 (10:34→21:15)
[2018-05-08] MEDS: DULoxetine HCL 20 MG CAPSULE.DR (FP) PO SCH (10:34)
[2018-05-08] MEDS: amLODIPine BESYLATE 10 MG TABLET (FP) PO SCH (10:34)
[2018-05-08] MEDS ORDERED: INSULIN (NOVOLOG) ASPART 100 UNITS/ML 10ML VIAL ONE ×2 (11:51→20:55)
--- NOTE | 2018-05-08 12:20 | PN ---
Physical Exam: SUBJECTIVE: Patient seen and examined at bedside. Ate 75% of breakfast per nursing assoc. Per nursing assoc patient is able to respond in Serbian to certain questions and have small conversations at times. OBJECTIVE: Vital Signs Period Temp Pulse Resp BP Sys/Iniguez Pulse Ox Last 24 Hr 98.1 F-100.8 F 66-102 16-20 101-159/51-80 96-100 GENERAL: awake but tired appearing. mumbling incomprehensible speech in Serbian. HEAD: Normal with no signs of trauma. HEENT:Moist mucous membranes LUNGS: Breath sounds equal, clear to auscultation bilaterally HEART: Regular rate and rhythm, S1, S2 without murmur ABDOMEN: Soft, nontender, nondistended, no grimacing to palpation EXTREMITIES: no edema Laboratory Results - last 24 hr 05/07/18 05/07/18 05/07/18 15:49 15:51 16:30 WBC 10.6 H RBC 4.06 Hgb 11.8 Hct 34.6 MCV 85.2 MCH 29.0 MCHC 34.0 RDW 14.2 Plt Count 327 MPV 8.7 Absolute Neuts (auto) 9.8 H Neutrophils % 92.5 H D Neutrophils % (Manual) 92.0 H Band Neutrophils % 0.0 Lymphocytes % 4.6 L D Lymphocytes % (Manual) 4.0 L Monocytes % 2.8 L Monocytes % (Manual) 4 Eosinophils % 0.0 D Eosinophils % (Manual) 0.0 Basophils % 0.1 Basophils % (Manual) 0.0 Nucleated RBC % 0 Platelet Estimate Adequate PT with INR INR PTT (Actin FS) VBG pH POC VBG pCO2 POC VBG pO2 Mixed VBG HCO3 Sodium Potassium Chloride Carbon Dioxide Anion Gap BUN Creatinine Creat Clearance w eGFR POC Glucometer [phone] Random Glucose Lactic Acid Calcium Phosphorus Magnesium Total Bilirubin AST ALT Alkaline Phosphatase Troponin I Total Protein Albumin Urine Color Urine Appearance Urine pH Ur Specific [place] Urine Protein Urine Glucose (UA) Urine Ketones Urine Blood Urine Nitrite Urine Bilirubin Urine Urobilinogen Ur Leukocyte Esterase Urine WBC (Auto) Urine RBC (Auto) Urine Bacteria Hyaline Casts 05/07/18 05/07/18 05/07/18 16:30 16:30 16:30 WBC RBC Hgb Hct MCV MCH MCHC RDW Plt Count MPV Absolute Neuts (auto) Neutrophils % Neutrophils % (Manual) Band Neutrophils % Lymphocytes % Lymphocytes % (Manual) Monocytes % Monocytes % (Manual) Eosinophils % Eosinophils % (Manual) Basophils % Basophils % (Manual) Nucleated RBC % Platelet Estimate PT with INR 11.00 INR 0.97 PTT (Actin FS) 28.9 VBG pH 7.37 POC VBG pCO2 39.0 D POC VBG pO2 31.5 D Mixed VBG HCO3 22.3 Sodium Potassium Chloride Carbon Dioxide Anion Gap BUN Creatinine Creat Clearance w eGFR POC Glucometer Random Glucose Lactic Acid Calcium Phosphorus Magnesium Total Bilirubin AST ALT Alkaline Phosphatase Troponin I Total Protein Albumin Urine Color Yellow Urine Appearance Cloudy Urine pH 7.0 D Ur Specific [place] 1.008 Urine Protein 2+ H Urine Glucose (UA) 3+ H Urine Ketones Trace H Urine Blood 1+ H Urine Nitrite Negative Urine Bilirubin Negative Urine Urobilinogen Negative Ur Leukocyte Esterase 3+ H Urine WBC (Auto) 277 Urine RBC (Auto) 5 Urine Bacteria Rare Hyaline Casts 2 05/07/18 05/07/18 05/07/18 16:30 16:30 16:30 WBC RBC Hgb Hct MCV MCH MCHC RDW Plt Count MPV Absolute Neuts (auto) Neutrophils % Neutrophils % (Manual) Band Neutrophils % Lymphocytes % Lymphocytes % (Manual) Monocytes % Monocytes % (Manual) Eosinophils % Eosinophils % (Manual) Basophils % Basophils % (Manual) Nucleated RBC % Platelet Estimate PT with INR INR PTT (Actin FS) VBG pH POC VBG pCO2 POC VBG pO2 Mixed VBG HCO3 Sodium 125 L Potassium 4.6 Chloride 90 L Carbon Dioxide 21 Anion Gap 14 BUN 15 Creatinine 0.9 Creat Clearance w eGFR 59.23 POC Glucometer Random Glucose 307 H* Lactic Acid 4.5 H* Calcium 9.7 Phosphorus Magnesium Total Bilirubin 0.3 AST 11 L ALT 13 Alkaline Phosphatase 111 D Troponin I < 0.02 Total Protein 9.0 H Albumin 4.0 Urine Color Urine Appearance Urine pH Ur Specific [place] Urine Protein Urine Glucose (UA) Urine Ketones Urine Blood Urine Nitrite Urine Bilirubin Urine Urobilinogen Ur Leukocyte Esterase Urine WBC (Auto) Urine RBC (Auto) Urine Bacteria Hyaline Casts 05/07/18 05/07/18 05/08/18 19:40 21:52 01:55 WBC RBC Hgb Hct MCV MCH MCHC RDW Plt Count MPV Absolute Neuts (auto) Neutrophils % Neutrophils % (Manual) Band Neutrophils % Lymphocytes % Lymphocytes % (Manual) Monocytes % Monocytes % (Manual) Eosinophils % Eosinophils % (Manual) Basophils % Basophils % (Manual) Nucleated RBC % Platelet Estimate PT with INR INR PTT (Actin FS) VBG pH POC VBG pCO2 POC VBG pO2 Mixed VBG HCO3 Sodium Potassium Chloride Carbon Dioxide Anion Gap BUN Creatinine Creat Clearance w eGFR POC Glucometer 303 Random Glucose Lactic Acid 2.9 H* 1.7 Calcium Phosphorus Magnesium Total Bilirubin AST ALT Alkaline Phosphatase Troponin I Total Protein Albumin Urine Color Urine Appearance Urine pH Ur Specific [place] Urine Protein Urine Glucose (UA) Urine Ketones Urine Blood Urine Nitrite Urine Bilirubin Urine Urobilinogen Ur Leukocyte Esterase Urine WBC (Auto) Urine RBC (Auto) Urine Bacteria Hyaline Casts 05/08/18 05/08/18 05/08/18 05:59 07:30 07:30 WBC 8.1 RBC 3.06 L Hgb 8.6 L Hct 26.1 L D MCV 85.1 MCH 28.1 MCHC 33.0 RDW 14.6 Plt Count 227 D MPV 8.2 Absolute Neuts (auto) Neutrophils % Neutrophils % (Manual) Band Neutrophils % Lymphocytes % Lymphocytes % (Manual) Monocytes % Monocytes % (Manual) Eosinophils % Eosinophils % (Manual) Basophils % Basophils % (Manual) Nucleated RBC % Platelet Estimate PT with INR INR PTT (Actin FS) VBG pH POC VBG pCO2 POC VBG pO2 Mixed VBG HCO3 Sodium 135 L Potassium 3.6 Chloride 102 Carbon Dioxide 23 Anion Gap 10 BUN 12 Creatinine 0.7 Creat Clearance w eGFR > 60 POC Glucometer 114 Random Glucose 112 H Lactic Acid Calcium 8.4 L Phosphorus 3.0 Magnesium 1.8 Total Bilirubin 0.3 AST 7 L ALT 11 L Alkaline Phosphatase 68 D Troponin I Total Protein 6.3 L D Albumin 2.9 L Urine Color Urine Appearance Urine pH Ur Specific [place] Urine Protein Urine Glucose (UA) Urine Ketones Urine Blood Urine Nitrite Urine Bilirubin Urine Urobilinogen Ur Leukocyte Esterase Urine WBC (Auto) Urine RBC (Auto) Urine Bacteria Hyaline Casts 05/08/18 11:47 WBC RBC Hgb Hct MCV MCH MCHC RDW Plt Count MPV Absolute Neuts (auto) Neutrophils % Neutrophils % (Manual) Band Neutrophils % Lymphocytes % Lymphocytes % (Manual) Monocytes % Monocytes % (Manual) Eosinophils % Eosinophils % (Manual) Basophils % Basophils % (Manual) Nucleated RBC % Platelet Estimate PT with INR INR PTT (Actin FS) VBG pH POC VBG pCO2 POC VBG pO2 Mixed VBG HCO3 Sodium Potassium Chloride Carbon Dioxide Anion Gap BUN Creatinine Creat Clearance w eGFR POC Glucometer 198 Random Glucose Lactic Acid Calcium Phosphorus Magnesium Total Bilirubin AST ALT Alkaline Phosphatase Troponin I Total Protein Albumin Urine Color Urine Appearance Urine pH Ur Specific [place] Urine Protein Urine Glucose (UA) Urine Ketones Urine Blood Urine Nitrite Urine Bilirubin Urine Urobilinogen Ur Leukocyte Esterase Urine WBC (Auto) Urine RBC (Auto) Urine Bacteria Hyaline Casts Active Medications Generic Name Dose Route Start Last Admin Trade Name Freq PRN Reason Stop Dose Admin Acetaminophen 650 mg 05/07/18 19:52 Tylenol - PO Q6H PRN FEVER Amlodipine Besylate 10 mg 05/08/18 10:00 05/08/18 10:34 Norvasc - PO 10 mg DAILY SEAN Administration Aspirin 81 mg 05/08/18 10:00 05/08/18 10:34 Asa - PO 81 mg DAILY SEAN Administration Atorvastatin Calcium 20 mg 05/07/18 22:00 05/07/18 23:39 Lipitor - PO Not Given [facility] Bisacodyl 10 mg 05/07/18 19:30 Dulcolax Suppository - RC DAILY PRN CONSTIPATION Calcium Carbonate 1,300 mg 05/07/18 22:00 05/08/18 10:34 Calcium Carbonate - PO 1,300 mg BID SEAN Administration Clopidogrel Bisulfate 75 mg 05/08/18 10:00 05/08/18 10:34 Plavix - PO 75 mg DAILY SEAN Administration Docusate Sodium 100 mg 05/07/18 22:00 05/08/18 10:34 Colace - PO 100 mg BID SEAN Administration Duloxetine HCl 20 mg 05/08/18 10:00 05/08/18 10:34 Cymbalta - PO 20 mg DAILY SEAN Administration Ferrous Sulfate 325 mg 05/08/18 10:00 05/08/18 10:33 Feosol - PO 325 mg DAILY SEAN Administration Heparin Sodium (Porcine) 5,000 unit 05/07/18 22:00 05/08/18 06:12 Heparin - SQ 5,000 unit TID SEAN Administration Piperacillin Sod/Tazobactam 50 mls @ 100 mls/hr 05/08/18 02:00 Sod 3.375 gm/ Dextrose IVPB Q8H-IV SEAN Protocol Sodium Chloride 1,000 mls @ 50 mls/hr 05/08/18 09:00 05/08/18 09:40 1/2 Normal Saline IV 50 mls/hr ASDIR SEAN Administration Insulin Aspart 1 vial 05/07/18 22:00 05/08/18 12:13 Novolog Vial Sliding Scale - SQ 2 units ACHS SEAN Administration Protocol Metoprolol Succinate 75 mg 05/07/18 22:00 05/08/18 10:34 Toprol Xl - PO 75 mg BID SEAN Administration Polyethylene Glycol 17 gm 05/07/18 22:00 05/08/18 10:35 Miralax (For Daily Use) - PO 17 gm TID SEAN Administration Senna 1 tab 05/07/18 22:00 05/07/18 23:39 Senna - PO Not Given HS SEAN Tamsulosin HCl 0.8 mg 05/08/18 08:30 05/08/18 08:33 Flomax - PO 0.8 mg DAILY@0830 SEAN Administration ASSESSMENT/PLAN: 87F with multiple mediocal problems presents to the hospital with worsening mental status found to have UTI. Patient has ESBL in the patient. Encephalopathy/altered mental status/dementia: could be infectious vs metabolic-patient has UTI and hyponatremia per family patient gets altered when she has an infection especially UTI Sepsis secondary Recurrent UTI: Patient started on Zosyn as ESBL organism was sensitive to it in the past ID consult f/u UCx F/u BCx IVF Currently Afebrile Hyponatremia: sodium now 135. Patient was very likely volume depleted/dehydrated sodium corrected with hydration with NS Will change to 1/2 NS @ 50ml/hr for maintenance Anemia: Patient's baseline Hb 8-9 Hb on presentation was 11 which came down back to her baseline after hydration. Supports dehydration/volume depletion Lactic acidosis: resolved with IVF HTN: Continue Toprol XL Continue Norvasc HLD: continue statin plavix aspirin History of CVA/CAD s/p quadruple bypass: Continue statin aspirin plavix and antihypertensives DM: ISS TIDAC Fingersticks ACHS for BGM FEN: 1/2 NS @ 50ml/hr Hyponatremia-resolving diabetic diet PPx: HSQ no GI Prophylaxis indicated PT consult Case discussed with Dr. Hollins Visit type - Emergency Visit Emergency Visit: Yes ED Registration Date: 05/07/18 Care time: The patient presented to the Emergency Department on the above date and was hospitalized for further evaluation of their emergent condition. - New Patient This patient is new to me today: Yes Date on this admission: 05/08/18 - Critical Care Critical Care patient: No
--- NOTE | 2018-05-08 14:43 | CON.ID ---
Consult - History of Present Illness History of Present Illness: Pt is an 87 y.o. female with PMH of DM, CAD s/p quad bypass/stent, dementia, TIA , dementia, DM, HTN, HLD, Lt eye blindness and frequent UTIs (last treated 1 month ago). Pt presents with AMS, fever (100.8F in the ER), elevated glucose, elevated lactic acid level and report of abd pain prior to this. Previous Urine cultures have grown ESBL + E. coli and Staph haemolyticus. She has been started on antibiotics and is currently alert, verbally responsive, afebrile and without acute distress. 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 History of Recent Travel: No Home Medications - Allergies Allergies/Adverse Reactions: Allergies Allergy/AdvReac Type Severity Reaction Status Date / Time quetiapine [From Seroquel] Allergy Verified 05/07/18 15:41 ranolazine [From Ranexa] Allergy Verified 05/07/18 15:41 - Home Medications Home Medications: Ambulatory Orders Duloxetine HCl 20 mg PO DAILY 12/23/15 Ferrous Sulfate 325 mg PO DAILY 12/23/15 Metformin HCl 850 mg PO BID 12/23/15 Polyethylene Glycol 3350 [Miralax 119 gm Btl -] 17 gm PO TID 12/23/15 Docusate Sodium [Colace -] 100 mg PO BID #40 capsule 04/14/16 Calcium Carbonate - 1,300 mg PO BID #30 tablet 06/13/17 Lactobacillus Acidophilus [Bacid -] 1 tab PO DAILY tab 06/13/17 Metoprolol Succinate [Toprol XL -] 75 mg PO BID #180 tab.sr.24h 06/13/17 Tamsulosin HCl [Flomax -] 0.8 mg PO DAILY@0830 #30 cap 06/23/17 Amlodipine Besylate [Norvasc -] 10 mg PO DAILY 01/16/18 Atorvastatin Ca [Lipitor] 20 mg PO HS 01/16/18 Clopidogrel Bisulfate [Plavix] 75 mg PO DAILY 01/16/18 Aspirin [ASA -] 81 mg PO DAILY tab.chew 01/18/18 Bacitracin - [Bacitracin Topical Ointment -] 1 applic TP TID tube 01/18/18 Bisacodyl Suppository [Dulcolax Suppository -] 10 mg RC DAILY PRN #30 supp.rect 04/16/18 Sennosides [Senna] 8.6 mg PO HS #30 tablet 04/16/18 Review of Systems Findings/Remarks: pt with dementia, questionable reliability - Review of Systems Constitutional: reports: No Symptoms Eyes: reports: No Symptoms HENT: reports: No Symptoms Neck: reports: No Symptoms Cardiovascular: reports: No Symptoms Respiratory: reports: No Symptoms Gastrointestinal: reports: No Symptoms Genitourinary: reports: No Symptoms Breasts: reports: No Symptoms Reported Musculoskeletal: reports: No Symptoms Integumentary: reports: No Symptoms Neurological: reports: No Symptoms Endocrine: reports: No Symptoms Hematology/Lymphatic: reports: No Symptoms Psychiatric: reports: No Symptoms Physical Exam Vital Signs: Vital Signs Temperature 98.4 F 05/08/18 09:00 Pulse Rate 62 05/08/18 09:00 Respiratory Rate 16 05/08/18 09:00 Blood Pressure 128/71 05/08/18 09:00 O2 Sat by Pulse Oximetry (%) 96 05/08/18 09:00 Constitutional: Yes: No Distress, Calm Cardiovascular: Yes: Regular Rate and Rhythm Respiratory: Yes: CTA Bilaterally Gastrointestinal: Yes: Normal Bowel Sounds, Soft Renal/: Yes: WNL Musculoskeletal: Yes: WNL Extremities: Yes: WNL Integumentary: Yes: WNL Neurological: Yes: Alert Labs: CBC, BMP 05/08/18 07:30 05/08/18 07:30 Laboratory Tests 05/07/18 05/07/18 05/07/18 15:49 15:51 16:30 WBC 10.6 H RBC 4.06 Hgb 11.8 Hct 34.6 MCV 85.2 MCH 29.0 MCHC 34.0 RDW 14.2 Plt Count 327 MPV 8.7 Absolute Neuts (auto) 9.8 H Neutrophils % 92.5 H D Neutrophils % (Manual) 92.0 H Band Neutrophils % 0.0 Lymphocytes % 4.6 L D Lymphocytes % (Manual) 4.0 L Monocytes % 2.8 L Monocytes % (Manual) 4 Eosinophils % 0.0 D Eosinophils % (Manual) 0.0 Basophils % 0.1 Basophils % (Manual) 0.0 Nucleated RBC % 0 Platelet Estimate Adequate PT with INR INR PTT (Actin FS) VBG pH POC VBG pCO2 POC VBG pO2 Mixed VBG HCO3 Sodium Potassium Chloride Carbon Dioxide Anion Gap BUN Creatinine Creat Clearance w eGFR POC Glucometer [phone] Random Glucose Lactic Acid Calcium Phosphorus Magnesium Total Bilirubin AST ALT Alkaline Phosphatase Troponin I Total Protein Albumin Urine Color Urine Appearance Urine pH Ur Specific [place] Urine Protein Urine Glucose (UA) Urine Ketones Urine Blood Urine Nitrite Urine Bilirubin Urine Urobilinogen Ur Leukocyte Esterase Urine WBC (Auto) Urine RBC (Auto) Urine Bacteria Hyaline Casts 05/07/18 05/07/18 05/07/18 16:30 16:30 16:30 WBC RBC Hgb Hct MCV MCH MCHC RDW Plt Count MPV Absolute Neuts (auto) Neutrophils % Neutrophils % (Manual) Band Neutrophils % Lymphocytes % Lymphocytes % (Manual) Monocytes % Monocytes % (Manual) Eosinophils % Eosinophils % (Manual) Basophils % Basophils % (Manual) Nucleated RBC % Platelet Estimate PT with INR 11.00 INR 0.97 PTT (Actin FS) 28.9 VBG pH 7.37 POC VBG pCO2 39.0 D POC VBG pO2 31.5 D Mixed VBG HCO3 22.3 Sodium Potassium Chloride Carbon Dioxide Anion Gap BUN Creatinine Creat Clearance w eGFR POC Glucometer Random Glucose Lactic Acid Calcium Phosphorus Magnesium Total Bilirubin AST ALT Alkaline Phosphatase Troponin I Total Protein Albumin Urine Color Yellow Urine Appearance Cloudy Urine pH 7.0 D Ur Specific [place] 1.008 Urine Protein 2+ H Urine Glucose (UA) 3+ H Urine Ketones Trace H Urine Blood 1+ H Urine Nitrite Negative Urine Bilirubin Negative Urine Urobilinogen Negative Ur Leukocyte Esterase 3+ H Urine WBC (Auto) 277 Urine RBC (Auto) 5 Urine Bacteria Rare Hyaline Casts 2 05/07/18 05/07/18 05/07/18 16:30 16:30 16:30 WBC RBC Hgb Hct MCV MCH MCHC RDW Plt Count MPV Absolute Neuts (auto) Neutrophils % Neutrophils % (Manual) Band Neutrophils % Lymphocytes % Lymphocytes % (Manual) Monocytes % Monocytes % (Manual) Eosinophils % Eosinophils % (Manual) Basophils % Basophils % (Manual) Nucleated RBC % Platelet Estimate PT with INR INR PTT (Actin FS) VBG pH POC VBG pCO2 POC VBG pO2 Mixed VBG HCO3 Sodium 125 L Potassium 4.6 Chloride 90 L Carbon Dioxide 21 Anion Gap 14 BUN 15 Creatinine 0.9 Creat Clearance w eGFR 59.23 POC Glucometer Random Glucose 307 H* Lactic Acid 4.5 H* Calcium 9.7 Phosphorus Magnesium Total Bilirubin 0.3 AST 11 L ALT 13 Alkaline Phosphatase 111 D Troponin I < 0.02 Total Protein 9.0 H Albumin 4.0 Urine Color Urine Appearance Urine pH Ur Specific [place] Urine Protein Urine Glucose (UA) Urine Ketones Urine Blood Urine Nitrite Urine Bilirubin Urine Urobilinogen Ur Leukocyte Esterase Urine WBC (Auto) Urine RBC (Auto) Urine Bacteria Hyaline Casts 05/07/18 05/07/18 05/08/18 19:40 21:52 01:55 WBC RBC Hgb Hct MCV MCH MCHC RDW Plt Count MPV Absolute Neuts (auto) Neutrophils % Neutrophils % (Manual) Band Neutrophils % Lymphocytes % Lymphocytes % (Manual) Monocytes % Monocytes % (Manual) Eosinophils % Eosinophils % (Manual) Basophils % Basophils % (Manual) Nucleated RBC % Platelet Estimate PT with INR INR PTT (Actin FS) VBG pH POC VBG pCO2 POC VBG pO2 Mixed VBG HCO3 Sodium Potassium Chloride Carbon Dioxide Anion Gap BUN Creatinine Creat Clearance w eGFR POC Glucometer 303 Random Glucose Lactic Acid 2.9 H* 1.7 Calcium Phosphorus Magnesium Total Bilirubin AST ALT Alkaline Phosphatase Troponin I Total Protein Albumin Urine Color Urine Appearance Urine pH Ur Specific [place] Urine Protein Urine Glucose (UA) Urine Ketones Urine Blood Urine Nitrite Urine Bilirubin Urine Urobilinogen Ur Leukocyte Esterase Urine WBC (Auto) Urine RBC (Auto) Urine Bacteria Hyaline Casts 05/08/18 05/08/18 05/08/18 05:59 07:30 07:30 WBC 8.1 RBC 3.06 L Hgb 8.6 L Hct 26.1 L D MCV 85.1 MCH 28.1 MCHC 33.0 RDW 14.6 Plt Count 227 D MPV 8.2 Absolute Neuts (auto) Neutrophils % Neutrophils % (Manual) Band Neutrophils % Lymphocytes % Lymphocytes % (Manual) Monocytes % Monocytes % (Manual) Eosinophils % Eosinophils % (Manual) Basophils % Basophils % (Manual) Nucleated RBC % Platelet Estimate PT with INR INR PTT (Actin FS) VBG pH POC VBG pCO2 POC VBG pO2 Mixed VBG HCO3 Sodium 135 L Potassium 3.6 Chloride 102 Carbon Dioxide 23 Anion Gap 10 BUN 12 Creatinine 0.7 Creat Clearance w eGFR > 60 POC Glucometer 114 Random Glucose 112 H Lactic Acid Calcium 8.4 L Phosphorus 3.0 Magnesium 1.8 Total Bilirubin 0.3 AST 7 L ALT 11 L Alkaline Phosphatase 68 D Troponin I Total Protein 6.3 L D Albumin 2.9 L Urine Color Urine Appearance Urine pH Ur Specific [place] Urine Protein Urine Glucose (UA) Urine Ketones Urine Blood Urine Nitrite Urine Bilirubin Urine Urobilinogen Ur Leukocyte Esterase Urine WBC (Auto) Urine RBC (Auto) Urine Bacteria Hyaline Casts 05/08/18 11:47 WBC RBC Hgb Hct MCV MCH MCHC RDW Plt Count MPV Absolute Neuts (auto) Neutrophils % Neutrophils % (Manual) Band Neutrophils % Lymphocytes % Lymphocytes % (Manual) Monocytes % Monocytes % (Manual) Eosinophils % Eosinophils % (Manual) Basophils % Basophils % (Manual) Nucleated RBC % Platelet Estimate PT with INR INR PTT (Actin FS) VBG pH POC VBG pCO2 POC VBG pO2 Mixed VBG HCO3 Sodium Potassium Chloride Carbon Dioxide Anion Gap BUN Creatinine Creat Clearance w eGFR POC Glucometer 198 Random Glucose Lactic Acid Calcium Phosphorus Magnesium Total Bilirubin AST ALT Alkaline Phosphatase Troponin I Total Protein Albumin Urine Color Urine Appearance Urine pH Ur Specific [place] Urine Protein Urine Glucose (UA) Urine Ketones Urine Blood Urine Nitrite Urine Bilirubin Urine Urobilinogen Ur Leukocyte Esterase Urine WBC (Auto) Urine RBC (Auto) Urine Bacteria Hyaline Casts U/A 3+ leukocyte est URINE Cx - pending Blood Cx - pending Imaging - Results X-ray: Report Reviewed (no acute findings) Cat Scan: Report Reviewed (no acute findings) Problem List - Problems (1) UTI (urinary tract infection) Code(s): N39.0 - URINARY TRACT INFECTION, SITE NOT SPECIFIED Qualifiers: Urinary tract infection type: site unspecified Hematuria presence: with hematuria Qualified Code(s): N39.0 - Urinary tract infection, site not specified; R31.9 - Hematuria, unspecified (2) Anemia Code(s): D64.9 - ANEMIA, UNSPECIFIED Qualifiers: Iron deficiency anemia type: chronic blood loss (3) Altered mental status Code(s): R41.82 - ALTERED MENTAL STATUS, UNSPECIFIED Qualifiers: Altered mental status type: somnolence Qualified Code(s): R40.0 - Somnolence (4) CAD (coronary artery disease) Code(s): I25.10 - ATHSCL HEART DISEASE OF [place] CORONARY ARTERY W/O ANG PCTRS Qualifiers: Coronary Disease-Associated Artery/Lesion type: bypass graft [place]oh vs. transplanted heart: [place] heart Associated angina: with stable angina Qualified Code(s): I25.708 - Atherosclerosis of coronary artery bypass graft(s) , unspecified, with other forms of angina pectoris (5) Diabetes type 2, uncontrolled Code(s): E11.65 - TYPE 2 DIABETES MELLITUS WITH HYPERGLYCEMIA (6) Hyperlipidemia Code(s): E78.5 - HYPERLIPIDEMIA, UNSPECIFIED Qualifiers: Hyperlipidemia type: pure hypercholesterolemia Qualified Code(s): E78.00 - Pure hypercholesterolemia, unspecified; E78.0 - Pure hypercholesterolemia (7) Hypertension Code(s): I10 - ESSENTIAL (PRIMARY) HYPERTENSION Qualifiers: Hypertension type: essential hypertension Qualified Code(s): I10 - Essential (primary) hypertension (8) S/P CABG (coronary artery bypass graft) Code(s): Z95.1 - PRESENCE OF AORTOCORONARY BYPASS GRAFT Assessment/Plan 87 y.o. female with multiple medical co-morbidities presenting with AMS, fever, hyperglycemia, elevated lactic acid level. She has been treated for ESBL + E.coli and Staph haemolyticus UTIs Likely UTI Sepsis Fever Lactic acidosis Uncontrolled DM CAD s/p CABG HTN HLD Dementia -- d/c Zosyn due to prior ESBL + E.coli UTI in the past -- start Ertapenem, de-escalate if possible based on cultures -- f/u urine and blood cultures -- continue monitor temps, vitals currently stable -- lactic acid level now normal will follow Thank you
[2018-05-08] MEDS ORDERED: PT OWN MED DRAWER 7, Y5N ONE (16:31)
--- NOTE | 2018-05-08 16:40 | PN ---
Teaching Attending Note Name of Resident: Rogerio White ATTENDING PHYSICIAN STATEMENT I saw and evaluated the patient. I reviewed the resident's note and discussed the case with the resident. I agree with the resident's findings and plan as documented. SUBJECTIVE: Patient is alert and appears comfortable. OBJECTIVE: Vital Signs Period Temp Pulse Resp BP Sys/Iniguez Pulse Ox Last 24 Hr 98.1 F-100.8 F 62-94 16-18 101-152/51-74 96-96 HEART: S1S2, RRR LUNGS: Clear ABDOMEN: Soft, non-tender, non-distended, normal BS EXTREMITIES: No edema Laboratory Results - last 24 hr 05/07/18 05/07/18 05/07/18 15:49 15:51 16:30 WBC 10.6 H RBC 4.06 Hgb 11.8 Hct 34.6 MCV 85.2 MCH 29.0 MCHC 34.0 RDW 14.2 Plt Count 327 MPV 8.7 Absolute Neuts (auto) 9.8 H Neutrophils % 92.5 H D Neutrophils % (Manual) 92.0 H Band Neutrophils % 0.0 Lymphocytes % 4.6 L D Lymphocytes % (Manual) 4.0 L Monocytes % 2.8 L Monocytes % (Manual) 4 Eosinophils % 0.0 D Eosinophils % (Manual) 0.0 Basophils % 0.1 Basophils % (Manual) 0.0 Nucleated RBC % 0 Platelet Estimate Adequate PT with INR INR PTT (Actin FS) VBG pH POC VBG pCO2 POC VBG pO2 Mixed VBG HCO3 Sodium Potassium Chloride Carbon Dioxide Anion Gap BUN Creatinine Creat Clearance w eGFR POC Glucometer [phone] Random Glucose Lactic Acid Calcium Phosphorus Magnesium Total Bilirubin AST ALT Alkaline Phosphatase Troponin I Total Protein Albumin Urine Color Urine Appearance Urine pH Ur Specific [place] Urine Protein Urine Glucose (UA) Urine Ketones Urine Blood Urine Nitrite Urine Bilirubin Urine Urobilinogen Ur Leukocyte Esterase Urine WBC (Auto) Urine RBC (Auto) Urine Bacteria Hyaline Casts 05/07/18 05/07/18 05/07/18 16:30 16:30 16:30 WBC RBC Hgb Hct MCV MCH MCHC RDW Plt Count MPV Absolute Neuts (auto) Neutrophils % Neutrophils % (Manual) Band Neutrophils % Lymphocytes % Lymphocytes % (Manual) Monocytes % Monocytes % (Manual) Eosinophils % Eosinophils % (Manual) Basophils % Basophils % (Manual) Nucleated RBC % Platelet Estimate PT with INR 11.00 INR 0.97 PTT (Actin FS) 28.9 VBG pH 7.37 POC VBG pCO2 39.0 D POC VBG pO2 31.5 D Mixed VBG HCO3 22.3 Sodium Potassium Chloride Carbon Dioxide Anion Gap BUN Creatinine Creat Clearance w eGFR POC Glucometer Random Glucose Lactic Acid Calcium Phosphorus Magnesium Total Bilirubin AST ALT Alkaline Phosphatase Troponin I Total Protein Albumin Urine Color Yellow Urine Appearance Cloudy Urine pH 7.0 D Ur Specific [place] 1.008 Urine Protein 2+ H Urine Glucose (UA) 3+ H Urine Ketones Trace H Urine Blood 1+ H Urine Nitrite Negative Urine Bilirubin Negative Urine Urobilinogen Negative Ur Leukocyte Esterase 3+ H Urine WBC (Auto) 277 Urine RBC (Auto) 5 Urine Bacteria Rare Hyaline Casts 2 05/07/18 05/07/18 05/07/18 16:30 16:30 16:30 WBC RBC Hgb Hct MCV MCH MCHC RDW Plt Count MPV Absolute Neuts (auto) Neutrophils % Neutrophils % (Manual) Band Neutrophils % Lymphocytes % Lymphocytes % (Manual) Monocytes % Monocytes % (Manual) Eosinophils % Eosinophils % (Manual) Basophils % Basophils % (Manual) Nucleated RBC % Platelet Estimate PT with INR INR PTT (Actin FS) VBG pH POC VBG pCO2 POC VBG pO2 Mixed VBG HCO3 Sodium 125 L Potassium 4.6 Chloride 90 L Carbon Dioxide 21 Anion Gap 14 BUN 15 Creatinine 0.9 Creat Clearance w eGFR 59.23 POC Glucometer Random Glucose 307 H* Lactic Acid 4.5 H* Calcium 9.7 Phosphorus Magnesium Total Bilirubin 0.3 AST 11 L ALT 13 Alkaline Phosphatase 111 D Troponin I < 0.02 Total Protein 9.0 H Albumin 4.0 Urine Color Urine Appearance Urine pH Ur Specific [place] Urine Protein Urine Glucose (UA) Urine Ketones Urine Blood Urine Nitrite Urine Bilirubin Urine Urobilinogen Ur Leukocyte Esterase Urine WBC (Auto) Urine RBC (Auto) Urine Bacteria Hyaline Casts 05/07/18 05/07/18 05/08/18 19:40 21:52 01:55 WBC RBC Hgb Hct MCV MCH MCHC RDW Plt Count MPV Absolute Neuts (auto) Neutrophils % Neutrophils % (Manual) Band Neutrophils % Lymphocytes % Lymphocytes % (Manual) Monocytes % Monocytes % (Manual) Eosinophils % Eosinophils % (Manual) Basophils % Basophils % (Manual) Nucleated RBC % Platelet Estimate PT with INR INR PTT (Actin FS) VBG pH POC VBG pCO2 POC VBG pO2 Mixed VBG HCO3 Sodium Potassium Chloride Carbon Dioxide Anion Gap BUN Creatinine Creat Clearance w eGFR POC Glucometer 303 Random Glucose Lactic Acid 2.9 H* 1.7 Calcium Phosphorus Magnesium Total Bilirubin AST ALT Alkaline Phosphatase Troponin I Total Protein Albumin Urine Color Urine Appearance Urine pH Ur Specific [place] Urine Protein Urine Glucose (UA) Urine Ketones Urine Blood Urine Nitrite Urine Bilirubin Urine Urobilinogen Ur Leukocyte Esterase Urine WBC (Auto) Urine RBC (Auto) Urine Bacteria Hyaline Casts 05/08/18 05/08/18 05/08/18 05:59 07:30 07:30 WBC 8.1 RBC 3.06 L Hgb 8.6 L Hct 26.1 L D MCV 85.1 MCH 28.1 MCHC 33.0 RDW 14.6 Plt Count 227 D MPV 8.2 Absolute Neuts (auto) Neutrophils % Neutrophils % (Manual) Band Neutrophils % Lymphocytes % Lymphocytes % (Manual) Monocytes % Monocytes % (Manual) Eosinophils % Eosinophils % (Manual) Basophils % Basophils % (Manual) Nucleated RBC % Platelet Estimate PT with INR INR PTT (Actin FS) VBG pH POC VBG pCO2 POC VBG pO2 Mixed VBG HCO3 Sodium 135 L Potassium 3.6 Chloride 102 Carbon Dioxide 23 Anion Gap 10 BUN 12 Creatinine 0.7 Creat Clearance w eGFR > 60 POC Glucometer 114 Random Glucose 112 H Lactic Acid Calcium 8.4 L Phosphorus 3.0 Magnesium 1.8 Total Bilirubin 0.3 AST 7 L ALT 11 L Alkaline Phosphatase 68 D Troponin I Total Protein 6.3 L D Albumin 2.9 L Urine Color Urine Appearance Urine pH Ur Specific [place] Urine Protein Urine Glucose (UA) Urine Ketones Urine Blood Urine Nitrite Urine Bilirubin Urine Urobilinogen Ur Leukocyte Esterase Urine WBC (Auto) Urine RBC (Auto) Urine Bacteria Hyaline Casts 05/08/18 11:47 WBC RBC Hgb Hct MCV MCH MCHC RDW Plt Count MPV Absolute Neuts (auto) Neutrophils % Neutrophils % (Manual) Band Neutrophils % Lymphocytes % Lymphocytes % (Manual) Monocytes % Monocytes % (Manual) Eosinophils % Eosinophils % (Manual) Basophils % Basophils % (Manual) Nucleated RBC % Platelet Estimate PT with INR INR PTT (Actin FS) VBG pH POC VBG pCO2 POC VBG pO2 Mixed VBG HCO3 Sodium Potassium Chloride Carbon Dioxide Anion Gap BUN Creatinine Creat Clearance w eGFR POC Glucometer 198 Random Glucose Lactic Acid Calcium Phosphorus Magnesium Total Bilirubin AST ALT Alkaline Phosphatase Troponin I Total Protein Albumin Urine Color Urine Appearance Urine pH Ur Specific [place] Urine Protein Urine Glucose (UA) Urine Ketones Urine Blood Urine Nitrite Urine Bilirubin Urine Urobilinogen Ur Leukocyte Esterase Urine WBC (Auto) Urine RBC (Auto) Urine Bacteria Hyaline Casts Current Medications Generic Name Dose Route Start Last Admin Trade Name Freq PRN Reason Stop Dose Admin Acetaminophen 650 mg 05/07/18 19:52 Tylenol - PO Q6H PRN FEVER Amlodipine Besylate 10 mg 05/08/18 10:00 05/08/18 10:34 Norvasc - PO 10 mg DAILY [facility] Administration Aspirin 81 mg 05/08/18 10:00 05/08/18 10:34 Asa - PO 81 mg DAILY [facility] Administration Atorvastatin Calcium 20 mg 05/07/18 22:00 05/07/18 23:39 Lipitor - PO Not Given HS [facility] Bisacodyl 10 mg 05/07/18 19:30 Dulcolax Suppository - RC DAILY PRN CONSTIPATION Calcium Carbonate 1,300 mg 05/07/18 22:00 05/08/18 10:34 Calcium Carbonate - PO 1,300 mg BID [facility] Administration Clopidogrel Bisulfate 75 mg 05/08/18 10:00 05/08/18 10:34 Plavix - PO 75 mg DAILY [facility] Administration Docusate Sodium 100 mg 05/07/18 22:00 05/08/18 10:34 Colace - PO 100 mg BID [facility] Administration Duloxetine HCl 20 mg 05/08/18 10:00 05/08/18 10:34 Cymbalta - PO 20 mg DAILY [facility] Administration Ferrous Sulfate 325 mg 05/08/18 10:00 05/08/18 10:33 Feosol - PO 325 mg DAILY [facility] Administration Heparin Sodium (Porcine) 5,000 unit 05/07/18 22:00 05/08/18 14:58 Heparin - SQ 5,000 unit TID [facility] Administration Sodium Chloride 1,000 mls @ 50 mls/hr 05/08/18 09:00 05/08/18 09:40 1/2 Normal Saline IV 50 mls/hr ASDIR [facility] Administration Ertapenem 1 gm/ Sodium 100 mls @ 200 mls/hr 05/08/18 15:00 Chloride IVPB DAILY [facility] Protocol Insulin Aspart 1 vial 05/08/18 16:30 Novolog Vial Sliding Scale - SQ TIDAC [facility] Protocol Metoprolol Succinate 75 mg 05/07/18 22:00 05/08/18 10:34 Toprol Xl - PO 75 mg BID [facility] Administration Polyethylene Glycol 17 gm 05/07/18 22:00 05/08/18 13:00 Miralax (For Daily Use) - PO Not Given TID [facility] Senna 1 tab 05/07/18 22:00 05/07/18 23:39 Senna - PO Not Given HS [facility] Tamsulosin HCl 0.8 mg 05/08/18 08:30 05/08/18 08:33 Flomax - PO 0.8 mg DAILY@0830 [facility] Administration ASSESSMENT AND PLAN: This is an 87 year old woman with a history of CAD, CABG, HTN, hyperlipidemia, type 2 DM, CVA, dementia who presented to the ED with confusion. 1. Acute metabolic encephalopathy - Secondary to sepsis/UTI 2. Severe sepsis (temp 100.8, HR 102, lactic acid 4.5) secondary to UTI - Has history of ESBL (+) E. coli - ID consult appreciated - Kassi changed to Sunday - Urine, blood cultures pending 3. Hyponatremia, hypovolemic - Improving with IV fluid 4. Anemia, chronic - Likely secondary to chronic illness, possible iron deficiency - Recent iron studies showed low iron, low normal TIBC, low iron saturation. Ferritin not done - Recent stool (+) for occult blood 5. CAD, history of CABG - Continue aspirin, Plavix, Lipitor, Toprol XL 6. HTN - Continue Toprol XL, Norvasc 7. Hyperlipidemia - Continue Lipitor 8. History of CVA - Continue aspirin, Lipitor 9. Type 2 DM - Continue Novolog sliding scale
--- NOTE | 2018-05-08 17:16 | EKG ---
Test Reason : Blood Pressure : / mmHG Vent. Rate : 094 BPM Atrial Rate : 094 BPM P-R Int : 196 ms QRS Dur : 092 ms QT Int : 372 ms P-R-T Axes : 041 -36 074 degrees QTc Int : 465 ms POOR DATA QUALITY, INTERPRETATION MAY BE ADVERSELY AFFECTED SINUS RHYTHM WITH PREMATURE ATRIAL COMPLEXES WITH ABERRANT CONDUCTION LEFT AXIS DEVIATION NONSPECIFIC ST AND T WAVE ABNORMALITY ABNORMAL ECG Confirmed by MD ROME, LANEY ([id number]) on 05/08/2018 5:16:20 PM Referred By: Confirmed By:LANEY PETER MD
[2018-05-08] MEDS: ERTAPENEM SODIUM 1 GM in SODIUM CHLORIDE 100 ML IVPB SCH (17:33)
[2018-05-08] MEDS: ATORVASTATIN CA 20 MG TABLET (FP) PO SCH (21:15)
[2018-05-08] MEDS: SENNOSIDES 8.6MG TABLET (FP) PO SCH (21:15)
[2018-05-09] MEDS: HEPARIN NA (PORCINE) 5,000 UNITS/ML 1ML VIAL SQ SCH ×3 (05:56→22:01)
[2018-05-09] MEDS: POLYETHYLENE GLYCOL 3350 119 GM BTL PO SCH ×3 (05:56→21:59)
[2018-05-09] MEDS: INSULIN SLIDING SCALE (NOVOLOG) 1 VIAL SQ SCH ×3 (06:01→17:51)
[2018-05-09] MEDS ORDERED: INSULIN (NOVOLOG) ASPART 100 UNITS/ML 10ML VIAL ONE ×2 (06:25→11:51)
[2018-05-09 07:58] LABS: HEMATOCRIT 27.5 % (32.4-45.2); HEMOGLOBIN 9.1 GM/dL (10.7-15.3); MCH 28.5 pg (25.7-33.7); MCHC 33.1 g/dl (32.0-36.0); MEAN CELL VOLUME 85.9 fl (80-96); MEAN PLT VOLUME 7.9 fl (7.5-11.1); PLATELET COUNT 221 K/MM3 (134-434); RDW 14.8 % (11.6-15.6); WHITE BLOOD COUNT 7.9 K/mm3 (4.0-10.0)
[2018-05-09] MEDS: TAMSULOSIN HCL 0.4 MG CAP.ER.24H (FP) PO SCH (08:30)
[2018-05-09 08:56] LABS: ALBUMIN 2.9 g/dl (3.4-5.0); ANION GAP 8 MMOL/L (8-16); BLOOD UREA NITROGEN 12 mg/dL (7-18); CALCIUM 8.5 mg/dL (8.5-10.1); CHLORIDE 107 mmol/L (98-107); CO2 24 mmol/L (21-32); CREATININE 0.6 mg/dL (0.55-1.02); GLUCOSE,RANDOM 117 mg/dL (74-106); MAGNESIUM 1.8 mg/dL (1.8-2.4); POTASSIUM 4.3 mmol/L (3.5-5.1); SGOT/AST 9 U/L (15-37); SGPT/ALT 9 U/L (12-78); SODIUM 139 mmol/L (136-145)
[2018-05-09 08:58] LABS: ALK PHOS 62 U/L (45-117); BILIRUBIN,TOTAL 0.2 mg/dL (0.2-1.0); TOT PROT 6.2 g/dl (6.4-8.2)
[2018-05-09] MEDS ORDERED: PT OWN MED DRAWER 7, Y5N ONE (10:23)
[2018-05-09] MEDS: SODIUM CHLORIDE 0.45% 1,000 ML IV SCH (10:32)
[2018-05-09] MEDS: metoPROLOL SUCCINATE 25 MG TAB.SR.24H (FP) PO SCH ×2 (10:33→21:59)
[2018-05-09] MEDS: CALCIUM CARBONATE 650 MG TABLET PO SCH ×2 (10:33→21:58)
[2018-05-09] MEDS: CLOPIDOGREL BISULFATE 75 MG TABLET (FP) PO SCH (10:33)
[2018-05-09] MEDS: ERTAPENEM SODIUM 1 GM in SODIUM CHLORIDE 100 ML IVPB SCH (10:34)
[2018-05-09] MEDS: DULoxetine HCL 20 MG CAPSULE.DR (FP) PO SCH (10:34)
[2018-05-09] MEDS: DOCUSATE SODIUM 100 MG CAPSULE (FP) PO SCH ×2 (10:34→22:00)
[2018-05-09] MEDS: amLODIPine BESYLATE 10 MG TABLET (FP) PO SCH (10:34)
[2018-05-09] MEDS: ASPIRIN 81 MG CHEWABLE TABLETS PO SCH (10:34)
[2018-05-09] MEDS: FERROUS SO4 325 MG TABLET (FP) PO SCH (10:34)
--- NOTE | 2018-05-09 12:16 | PN ---
Physical Exam: SUBJECTIVE: Patient seen and examined at bedside mental status significantly improved afebrile OBJECTIVE: Vital Signs Period Temp Pulse Resp BP Sys/Iniguez Pulse Ox Last 24 Hr 98.4 F-98.9 F 62-69 20-20 110-117/54-62 96-96 GENERAL: awake and alert. Orientated to self and place. Thinks its 1998 HEAD: Normal with no signs of trauma. HEENT:Moist mucous membranes LUNGS: Breath sounds equal, clear to auscultation bilaterally HEART: Regular rate and rhythm, S1, S2 without murmur ABDOMEN: Soft, nontender, nondistended. Mild suprapubic tenderness EXTREMITIES: no edema Laboratory Results - last 24 hr 05/08/18 05/09/18 05/09/18 16:48 05:58 06:20 WBC 7.9 RBC 3.20 L Hgb 9.1 L Hct 27.5 L MCV 85.9 MCH 28.5 MCHC 33.1 RDW 14.8 Plt Count 221 MPV 7.9 Sodium Potassium Chloride Carbon Dioxide Anion Gap BUN Creatinine Creat Clearance w eGFR POC Glucometer 114 116 Random Glucose Calcium Phosphorus Magnesium Total Bilirubin AST ALT Alkaline Phosphatase Total Protein Albumin 05/09/18 06:20 WBC RBC Hgb Hct MCV MCH MCHC RDW Plt Count MPV Sodium 139 Potassium 4.3 Chloride 107 Carbon Dioxide 24 Anion Gap 8 BUN 12 Creatinine 0.6 Creat Clearance w eGFR > 60 POC Glucometer Random Glucose 117 H Calcium 8.5 Phosphorus 3.0 Magnesium 1.8 Total Bilirubin 0.2 AST 9 L ALT 9 L Alkaline Phosphatase 62 Total Protein 6.2 L Albumin 2.9 L Active Medications Generic Name Dose Route Start Last Admin Trade Name Martínq PRN Reason Stop Dose Admin Acetaminophen 650 mg 05/07/18 19:52 Tylenol - PO Q6H PRN FEVER Amlodipine Besylate 10 mg 05/08/18 10:00 05/09/18 10:34 Norvasc - PO 10 mg DAILY [facility] Administration Aspirin 81 mg 05/08/18 10:00 05/09/18 10:34 Asa - PO 81 mg DAILY [facility] Administration Atorvastatin Calcium 20 mg 05/07/18 22:00 05/08/18 21:15 Lipitor - PO 20 mg HS [facility] Administration Bisacodyl 10 mg 05/07/18 19:30 Dulcolax Suppository - RC DAILY PRN CONSTIPATION Calcium Carbonate 1,300 mg 05/07/18 22:00 05/09/18 10:33 Calcium Carbonate - PO 1,300 mg BID [facility] Administration Clopidogrel Bisulfate 75 mg 05/08/18 10:00 05/09/18 10:33 Plavix - PO 75 mg DAILY [facility] Administration Docusate Sodium 100 mg 05/07/18 22:00 05/09/18 10:34 Colace - PO 100 mg BID [facility] Administration Duloxetine HCl 20 mg 05/08/18 10:00 05/09/18 10:34 Cymbalta - PO 20 mg DAILY [facility] Administration Ferrous Sulfate 325 mg 05/08/18 10:00 05/09/18 10:34 Feosol - PO 325 mg DAILY [facility] Administration Heparin Sodium (Porcine) 5,000 unit 05/07/18 22:00 05/09/18 05:56 Heparin - SQ 5,000 unit TID [facility] Administration Ertapenem 1 gm/ Sodium 100 mls @ 200 mls/hr 05/08/18 15:00 05/09/18 10:34 Chloride IVPB 200 mls/hr DAILY [facility] Administration Protocol Insulin Aspart 1 vial 05/08/18 16:30 05/09/18 11:53 Novolog Vial Sliding Scale - SQ 4 units TIDAC [facility] Administration Protocol Metoprolol Succinate 75 mg 05/07/18 22:00 05/09/18 10:33 Toprol Xl - PO 75 mg BID [facility] Administration Polyethylene Glycol 17 gm 05/07/18 22:00 05/09/18 05:56 Miralax (For Daily Use) - PO 17 gm TID [facility] Administration Senna 1 tab 05/07/18 22:00 05/08/18 21:15 Senna - PO 1 tab HS [facility] Administration Tamsulosin HCl 0.8 mg 05/08/18 08:30 05/09/18 08:30 Flomax - PO 0.8 mg DAILY@0830 [facility] Administration ASSESSMENT/PLAN: 87F with multiple mediocal problems presents to the hospital with worsening mental status found to have UTI. Patient has ESBL in the patient. Encephalopathy/altered mental status/dementia: could be infectious vs metabolic-patient has UTI and had hyponatremia per family patient gets altered when she has an infection especially UTI Mental status improved and back to baseline-AMS likely secondary to UTI Sever Sepsis secondary Recurrent UTI: Patient started on Zosyn as ESBL organism was sensitive to it in the past- changed to Invanz by ID ID consult appreciated UCx-negative for growth BCx-no growth to date Will speak to ID about plan given negative urine culture. Given extensive history of ESBL UTI will treat with IV ABx (Invanz) despite negative urine culture Currently Afebrile Hyponatremia: Resolved sodium now 139. Patient was very likely volume depleted/dehydrated sodium corrected with hydration with NS Anemia: Patient's baseline Hb 8-9 Hb today 9.1 at baseline Hb on presentation was 11 which came down back to her baseline after hydration. Supports dehydration/volume depletion Lactic acidosis: resolved with IVF HTN: Continue Toprol XL Continue Norvasc HLD: continue statin plavix aspirin History of CVA/CAD s/p quadruple bypass: Continue statin aspirin plavix and antihypertensives DM: Well controlled ISS TIDAC Fingersticks ACHS for BGM FEN: stop IVF Hyponatremia-resolved diabetic diet-dysphagia chopped PPx: HSQ no GI Prophylaxis indicated PT consult Case discussed with Dr. Hollins D/C planning likely home with VNS for PT this weekend. Visit type - Emergency Visit Emergency Visit: Yes ED Registration Date: 05/07/18 Care time: The patient presented to the Emergency Department on the above date and was hospitalized for further evaluation of their emergent condition. - New Patient This patient is new to me today: No - Critical Care Critical Care patient: No - Discharge Referral Referred to [facility] Med P.C.: No
--- NOTE | 2018-05-09 13:18 | PN ---
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, Physician History of Present Illness: Pt is easily arousable, verbally responsive, and in no apparent distress. She is now afebrile. Culture results noted. - Current Medication List Current Medications: Active Medications Acetaminophen (Tylenol -) 650 mg PO Q6H PRN PRN Reason: FEVER Amlodipine Besylate (Norvasc -) 10 mg PO DAILY [facility] Last Admin: 05/09/18 10:34 Dose: 10 mg Aspirin (Asa -) 81 mg PO DAILY [facility] Last Admin: 05/09/18 10:34 Dose: 81 mg Atorvastatin Calcium (Lipitor -) 20 mg PO HS [facility] Last Admin: 05/08/18 21:15 Dose: 20 mg Bisacodyl (Dulcolax Suppository -) 10 mg RC DAILY PRN PRN Reason: CONSTIPATION Calcium Carbonate (Calcium Carbonate -) 1,300 mg PO BID [facility] Last Admin: 05/09/18 10:33 Dose: 1,300 mg Clopidogrel Bisulfate (Plavix -) 75 mg PO DAILY [facility] Last Admin: 05/09/18 10:33 Dose: 75 mg Docusate Sodium (Colace -) 100 mg PO BID [facility] Last Admin: 05/09/18 10:34 Dose: 100 mg Duloxetine HCl (Cymbalta -) 20 mg PO DAILY [facility] Last Admin: 05/09/18 10:34 Dose: 20 mg Ferrous Sulfate (Feosol -) 325 mg PO DAILY [facility] Last Admin: 05/09/18 10:34 Dose: 325 mg Heparin Sodium (Porcine) (Heparin -) 5,000 unit SQ TID [facility] Last Admin: 05/09/18 05:56 Dose: 5,000 unit Insulin Aspart ([facility]ial [facility]iding [facility] -[facility] Last Admin: 05/09/18 11:53 Dose: 4 units Levofloxacin (Levaquin -) 500 mg PO DAILY [facility] Metoprolol Succinate (Toprol Xl -) 75 mg PO BID [facility] Last Admin: 05/09/18 10:33 Dose: 75 mg Polyethylene Glycol (Miralax (For Daily Use) -) 17 gm PO TID [facility] Last Admin: 05/09/18 05:56 Dose: 17 gm Senna (Senna -) 1 tab PO [facility] Last Admin: 05/08/18 21:15 Dose: 1 tab Tamsulosin HCl (Flomax -) 0.8 mg PO DAILY@0830 [facility] Last Admin: 05/09/18 08:30 Dose: 0.8 mg - Objective Vital Signs: Vital Signs Temperature 98.7 F 05/09/18 10:00 Pulse Rate 62 05/09/18 10:00 Respiratory Rate 20 05/09/18 10:00 Blood Pressure 112/62 05/09/18 10:00 O2 Sat by Pulse Oximetry (%) 96 05/09/18 09:00 Constitutional: Yes: No Distress, Calm Cardiovascular: Yes: Regular Rate and Rhythm Respiratory: Yes: CTA Bilaterally Gastrointestinal: Yes: Normal Bowel Sounds, Soft, Tenderness (lower abd, no guarding) Genitourinary: Yes: WNL Extremities: Yes: WNL Integumentary: Yes: WNL Neurological: Yes: Alert Labs: CBC, BMP 05/09/18 06:20 05/09/18 06:20 INR, PTT INR 0.97 (0.83-1.09) 05/07/18 16:30 Microbiology 05/07/18 16:30 Urine - Urine Clean Catch Urine Culture - Final NO GROWTH OBTAINED 05/07/18 16:30 Blood - Peripheral Venous Blood Culture - Preliminary NO GROWTH OBTAINED AFTER 24 HOURS, INCUBATION TO CONTINUE FOR 4 DAYS. 05/07/18 16:30 Blood - Peripheral Venous Blood Culture - Preliminary NO GROWTH OBTAINED AFTER 24 HOURS, INCUBATION TO CONTINUE FOR 4 DAYS. U/A: 3+ leuk esterase, +200 wbc Problem List - Problems (1) UTI (urinary tract infection) Code(s): N39.0 - URINARY TRACT INFECTION, SITE NOT SPECIFIED Qualifiers: Urinary tract infection type: site unspecified Hematuria presence: with hematuria Qualified Code(s): N39.0 - Urinary tract infection, site not specified; R31.9 - Hematuria, unspecified (2) Anemia Code(s): D64.9 - ANEMIA, UNSPECIFIED Qualifiers: Iron deficiency anemia type: chronic blood loss (3) Altered mental status Code(s): R41.82 - ALTERED MENTAL STATUS, UNSPECIFIED Qualifiers: Altered mental status type: somnolence Qualified Code(s): R40.0 - Somnolence (4) CAD (coronary artery disease) Code(s): I25.10 - ATHSCL HEART DISEASE OF [place] CORONARY ARTERY W/O ANG PCTRS Qualifiers: Coronary Disease-Associated Artery/Lesion type: bypass graft [place] vs. transplanted heart: [place] heart Associated angina: with stable angina Qualified Code(s): I25.708 - Atherosclerosis of coronary artery bypass graft(s) , unspecified, with other forms of angina pectoris (5) Diabetes type 2, uncontrolled Code(s): E11.65 - TYPE 2 DIABETES MELLITUS WITH HYPERGLYCEMIA (6) Hyperlipidemia Code(s): E78.5 - HYPERLIPIDEMIA, UNSPECIFIED Qualifiers: Hyperlipidemia type: pure hypercholesterolemia Qualified Code(s): E78.00 - Pure hypercholesterolemia, unspecified; E78.0 - Pure hypercholesterolemia (7) Hypertension Code(s): I10 - ESSENTIAL (PRIMARY) HYPERTENSION Qualifiers: Hypertension type: essential hypertension Qualified Code(s): I10 - Essential (primary) hypertension (8) S/P CABG (coronary artery bypass graft) Code(s): Z95.1 - PRESENCE OF AORTOCORONARY BYPASS GRAFT Assessment/Plan 87 y.o. female with multiple medical co-morbidities presenting with AMS, fever, hyperglycemia, elevated lactic acid level. She has been treated for ESBL + E.coli and Staph haemolyticus UTIs UTI Fever Lactic acidosis Uncontrolled DM CAD s/p CABG HTN HLD Dementia -- blood and urine cultures no growth -- initial U/A with evidence of bacteriuria -- will d/c Invanz and start Levaquin empirically -- continue monitor temps, wbc while on levaquin -- pt currently alert, stable
--- NOTE | 2018-05-09 15:25 | PN ---
Teaching Attending Note Name of Resident: Rogerio White ATTENDING PHYSICIAN STATEMENT I saw and evaluated the patient. I reviewed the resident's note and discussed the case with the resident. I agree with the resident's findings and plan as documented. SUBJECTIVE: Patient is awake and alert. She has no complaints. OBJECTIVE: Vital Signs Period Temp Pulse Resp BP Sys/Iniguez Pulse Ox Last 24 Hr 98.4 F-98.9 F 62-69 20-20 110-117/54-62 96-96 HEART: S1S2, RRR LUNGS: Clear ABDOMEN: Soft, non-distended, (+) suprapubic tenderness, normal BS EXTREMITIES: No edema Laboratory Results - last 24 hr 05/08/18 05/09/18 05/09/18 16:48 05:58 06:20 WBC 7.9 RBC 3.20 L Hgb 9.1 L Hct 27.5 L MCV 85.9 MCH 28.5 MCHC 33.1 RDW 14.8 Plt Count 221 MPV 7.9 Sodium Potassium Chloride Carbon Dioxide Anion Gap BUN Creatinine Creat Clearance w eGFR POC Glucometer 114 116 Random Glucose Calcium Phosphorus Magnesium Total Bilirubin AST ALT Alkaline Phosphatase Total Protein Albumin 05/09/18 05/09/18 06:20 11:49 WBC RBC Hgb Hct MCV MCH MCHC RDW Plt Count MPV Sodium 139 Potassium 4.3 Chloride 107 Carbon Dioxide 24 Anion Gap 8 BUN 12 Creatinine 0.6 Creat Clearance w eGFR > 60 POC Glucometer 230 Random Glucose 117 H Calcium 8.5 Phosphorus 3.0 Magnesium 1.8 Total Bilirubin 0.2 AST 9 L ALT 9 L Alkaline Phosphatase 62 Total Protein 6.2 L Albumin 2.9 L Current Medications Generic Name Dose Route Start Last Admin Trade Name Freq PRN Reason Stop Dose Admin Acetaminophen 650 mg 05/07/18 19:52 Tylenol - PO Q6H PRN FEVER Amlodipine Besylate 10 mg 05/08/18 10:00 05/09/18 10:34 Norvasc - PO 10 mg DAILY [facility] Administration Aspirin 81 mg 05/08/18 10:00 05/09/18 10:34 Asa - PO 81 mg DAILY [facility] Administration Atorvastatin Calcium 20 mg 05/07/18 22:00 05/08/18 21:15 Lipitor - PO 20 mg HS SEAN Administration Bisacodyl 10 mg 05/07/18 19:30 Dulcolax Suppository - RC DAILY PRN CONSTIPATION Calcium Carbonate 1,300 mg 05/07/18 22:00 05/09/18 10:33 Calcium Carbonate - PO 1,300 mg BID [facility] Administration Clopidogrel Bisulfate 75 mg 05/08/18 10:00 05/09/18 10:33 Plavix - PO 75 mg DAILY [facility] Administration Docusate Sodium 100 mg 05/07/18 22:00 05/09/18 10:34 Colace - PO 100 mg BID SE[facility] Administration Duloxetine HCl 20 mg 05/08/18 10:00 05/09/18 10:34 Cymbalta - PO 20 mg DAILY [facility] Administration Ferrous Sulfate 325 mg 05/08/18 10:00 05/09/18 10:34 Feosol - PO 325 mg DAILY [facility] Administration Heparin Sodium (Porcine) 5,000 unit 05/07/18 22:00 05/09/18 14:06 Heparin - SQ 5,000 unit TID [facility] Administration Insulin Aspart 1 vial 05/08/18 16:30 05/09/18 11:53 Novolog Vial Sliding Scale - SQ 4 units TIDAC [facility] Administration Protocol Levofloxacin 500 mg 05/10/18 06:00 Levaquin - PO DAILY@0600 [facility] Metoprolol Succinate 75 mg 05/07/18 22:00 05/09/18 10:33 Toprol Xl - PO 75 mg BID [facility] Administration Polyethylene Glycol 17 gm 05/07/18 22:00 05/09/18 14:05 Miralax (For Daily Use) - PO 17 gm TID [facility] Administration Senna 1 tab 05/07/18 22:00 05/08/18 21:15 Senna - PO 1 tab HS [facility] Administration Tamsulosin HCl 0.8 mg 05/08/18 08:30 05/09/18 08:30 Flomax - PO 0.8 mg DAILY@0830 [facility] Administration ASSESSMENT AND PLAN: This is an 87 year old woman with a history of CAD, CABG, HTN, hyperlipidemia, type 2 DM, CVA, dementia who presented to the ED with confusion. 1. Acute metabolic encephalopathy - Secondary to sepsis/UTI 2. Severe sepsis (temp 100.8, HR 102, lactic acid 4.5) secondary to UTI - Has history of ESBL (+) E. coli - Urine, blood cultures negative - Invanz changed to Levaquin 3. Hyponatremia, hypovolemic - Improved - Discontinue IV fluid 4. Anemia, chronic - Likely secondary to chronic illness, possible iron deficiency - Recent iron studies showed low iron, low normal TIBC, low iron saturation. Ferritin not done - Recent stool (+) for occult blood - Hemoglobin stable 5. CAD, history of CABG - Continue aspirin, Plavix, Lipitor, Toprol XL 6. HTN - Continue Toprol XL, Norvasc 7. Hyperlipidemia - Continue Lipitor 8. History of CVA - Continue aspirin, Lipitor 9. Type 2 DM - Continue Novolog sliding scale
[2018-05-09] MEDS: SENNOSIDES 8.6MG TABLET (FP) PO SCH (21:59)
[2018-05-09] MEDS: ATORVASTATIN CA 20 MG TABLET (FP) PO SCH (21:59)
[2018-05-10] MEDS: HEPARIN NA (PORCINE) 5,000 UNITS/ML 1ML VIAL SQ SCH ×2 (05:53→14:45)
[2018-05-10] MEDS: POLYETHYLENE GLYCOL 3350 119 GM BTL PO SCH ×2 (05:54→14:45)
[2018-05-10] MEDS: INSULIN SLIDING SCALE (NOVOLOG) 1 VIAL SQ SCH ×2 (06:20→12:03)
[2018-05-10] MEDS: TAMSULOSIN HCL 0.4 MG CAP.ER.24H (FP) PO SCH (08:44)
[2018-05-10] MEDS: CALCIUM CARBONATE 650 MG TABLET PO SCH (10:43)
[2018-05-10] MEDS: FERROUS SO4 325 MG TABLET (FP) PO SCH (10:44)
[2018-05-10] MEDS: DULoxetine HCL 20 MG CAPSULE.DR (FP) PO SCH (10:44)
[2018-05-10] MEDS: metoPROLOL SUCCINATE 25 MG TAB.SR.24H (FP) PO SCH (10:44)
[2018-05-10] MEDS: ASPIRIN 81 MG CHEWABLE TABLETS PO SCH (10:44)
[2018-05-10] MEDS: CLOPIDOGREL BISULFATE 75 MG TABLET (FP) PO SCH (10:44)
[2018-05-10] MEDS: amLODIPine BESYLATE 10 MG TABLET (FP) PO SCH (10:44)
[2018-05-10] MEDS: DOCUSATE SODIUM 100 MG CAPSULE (FP) PO SCH (10:44)
[2018-05-10 10:52] VITALS: BP 140/63; PULSE 68; TEMP 98.1
--- NOTE | 2018-05-10 13:47 | DS ---
Physical Exam: SUBJECTIVE: Patient seen and examined at bedside feels better today speaking malay Back to baseline spoke with daughter over the phone today all questions answered and updates given. daughter requesting visiting doctor services. Endorses to OBJECTIVE: Vital Signs Period Temp Pulse Resp BP Sys/Iniguez Pulse Ox Last 24 Hr 98.1 F-98.8 F 68-74 19-20 131-140/54-90 95-95 PHYSICAL EXAM GENERAL: awake and alert. Orientated to self and place. HEAD: Normal with no signs of trauma. HEENT:Moist mucous membranes LUNGS: Breath sounds equal, clear to auscultation bilaterally HEART: Regular rate and rhythm, S1, S2 without murmur ABDOMEN: Soft, nontender, nondistended. Mild suprapubic tenderness EXTREMITIES: no edema LABS Laboratory Results - last 24 hr 05/09/18 05/09/18 05/10/18 17:50 22:09 05:43 POC Glucometer 139 174 142 05/10/18 11:40 POC Glucometer 255 HOSPITAL COURSE: Date of Admission:05/07/18 Date of Discharge: 05/10/18 87F who presented to the ER with acute mental status changes found to have a UTI. She was treated with zosyn then invanz given her history of ESBL. Urine culture was negative and patient was started on PO levaquin. Patient remains afebrile and mental status remains at baseline. She was restarted on all her home medications. She had an overall uncomplicated hospital course. Tolerating PO intake very well. Minutes to complete discharge: 35 Discharge Summary Reason For Visit: UTI Current Active Problems UTI (urinary tract infection) (Acute) Condition: Stable - Instructions Diet, Activity, Other Instructions: you were hospitalized for a urinary tract infection. You were treated with IV Antibiotics and your mental status and clinical condition improved. You can restart all your home medications. You must pecan picker antibiotics from the pharmacy and take it for another 3 days starting tomorrow. You already got the dose for today. If you have fever chills chest pain shortness of breath or your mental status changes again loretta go to the nearest emergency room. Referrals: Nisa Lyons MD [Primary Care Provider] - 1 Week Disposition: VNS/HOME HEALTH CARE - Home Medications Comprehensive Discharge Medication List: Ambulatory Orders Duloxetine HCl 20 mg PO DAILY 12/23/15 Ferrous Sulfate 325 mg PO DAILY 12/23/15 Metformin HCl 850 mg PO BID 12/23/15 Polyethylene Glycol 3350 [Miralax 119 gm Btl -] 17 gm PO TID 12/23/15 Docusate Sodium [Colace -] 100 mg PO BID #40 capsule 04/14/16 Calcium Carbonate - 1,300 mg PO BID #30 tablet 06/13/17 Lactobacillus Acidophilus [Bacid -] 1 tab PO DAILY tab 06/13/17 Metoprolol Succinate [Toprol XL -] 75 mg PO BID #180 tab.sr.24h 06/13/17 Tamsulosin HCl [Flomax -] 0.8 mg PO DAILY@0830 #30 cap 06/23/17 Amlodipine Besylate [Norvasc -] 10 mg PO DAILY 01/16/18 Atorvastatin Ca [Lipitor] 20 mg PO HS 01/16/18 Clopidogrel Bisulfate [Plavix] 75 mg PO DAILY 01/16/18 Aspirin [ASA -] 81 mg PO DAILY tab.chew 01/18/18 Bacitracin - [Bacitracin Topical Ointment -] 1 applic TP TID tube 01/18/18 Bisacodyl Suppository [Dulcolax Suppository -] 10 mg RC DAILY PRN #30 supp.rect 04/16/18 Sennosides [Senna] 8.6 mg PO HS #30 tablet 04/16/18 levoFLOXacin [Levaquin -] 500 mg PO DAILY #3 tablet 05/10/18 This patient is new to me today: No Emergency Visit: Yes ED Registration Date: 05/07/18 Care time: The patient presented to the Emergency Department on the above date and was hospitalized for further evaluation of their emergent condition. Critical Care patient: No - Discharge Referral Referred to [facility] No
--- NOTE | 2018-05-10 14:05 | PN ---
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, Physician History of Present Illness: Pt seen and examined. She is fully alert, responsive, afebrile. Denies difficulty breathing, chest pain, n/v/d, dysuria. - Current Medication List Current Medications: Active Medications Acetaminophen (Tylenol -) 650 mg PO Q6H PRN PRN Reason: FEVER Amlodipine Besylate (Norvasc -) 10 mg PO DAILY [facility] Last Admin: 05/10/18 10:44 Dose: 10 mg Aspirin (Asa -) 81 mg PO DAILY [facility] Last Admin: 05/10/18 10:44 Dose: 81 mg Atorvastatin Calcium (Lipitor -) 20 mg PO HS [facility] Last Admin: 05/09/18 21:59 Dose: 20 mg Bisacodyl (Dulcolax Suppository -) 10 mg RC DAILY PRN PRN Reason: CONSTIPATION Calcium Carbonate (Calcium Carbonate -) 1,300 mg PO BID [facility] Last Admin: 05/10/18 10:43 Dose: 1,300 mg Clopidogrel Bisulfate (Plavix -) 75 mg PO DAILY [facility] Last Admin: 05/10/18 10:44 Dose: 75 mg Docusate Sodium (Colace -) 100 mg PO BID [facility] Last Admin: 05/10/18 10:44 Dose: 100 mg Duloxetine HCl (Cymbalta -) 20 mg PO DAILY [facility] Last Admin: 05/10/18 10:44 Dose: 20 mg Ferrous Sulfate (Feosol -) 325 mg PO DAILY [facility] Last Admin: 05/10/18 10:44 Dose: 325 mg Heparin Sodium (Porcine) (Heparin -) 5,000 unit SQ TID [facility] Last Admin: 05/10/18 05:53 Dose: 5,000 unit Insulin Aspart ([facility]iding Scale -[facility] Last Admin: 05/10/18 12:03 Dose: 6 units Levofloxacin (Levaquin -) 500 mg PO DAILY@0600 [facility] Last Admin: 05/10/18 05:54 Dose: 500 mg Metoprolol Succinate (Toprol Xl -) 75 mg PO BID [facility] Last Admin: 05/10/18 10:44 Dose: 75 mg Polyethylene Glycol (Miralax (For Daily Use) -) 17 gm PO TID [facility] Last Admin: 05/10/18 05:54 Dose: 17 gm Senna (Senna -) 1 tab PO [facility] Last Admin: 05/09/18 21:59 Dose: 1 tab Tamsulosin HCl (Flomax -) 0.8 mg PO DAILY@0830 [facility] Last Admin: 05/10/18 08:44 Dose: 0.8 mg - Objective Vital Signs: Vital Signs Temperature 98.1 F 05/10/18 10:51 Pulse Rate 68 05/10/18 10:51 Respiratory Rate 20 05/10/18 10:51 Blood Pressure 140/63 05/10/18 10:51 O2 Sat by Pulse Oximetry (%) 95 05/10/18 09:00 Constitutional: Yes: No Distress, Calm Cardiovascular: Yes: Regular Rate and Rhythm Respiratory: Yes: CTA Bilaterally Gastrointestinal: Yes: Normal Bowel Sounds, Soft Genitourinary: Yes: WNL Musculoskeletal: Yes: WNL Extremities: Yes: WNL Edema: No Integumentary: Yes: WNL Neurological: Yes: Alert Labs: CBC, BMP 05/09/18 06:20 05/09/18 06:20 INR, PTT INR 0.97 (0.83-1.09) 05/07/18 16:30 Microbiology 05/07/18 16:30 Blood - Peripheral Venous Blood Culture - Preliminary NO GROWTH OBTAINED AFTER 48 HOURS, INCUBATION TO CONTINUE FOR 3 DAYS. 05/07/18 16:30 Blood - Peripheral Venous Blood Culture - Preliminary NO GROWTH OBTAINED AFTER 48 HOURS, INCUBATION TO CONTINUE FOR 3 DAYS. 05/07/18 16:30 Urine - Urine Clean Catch Urine Culture - Final NO GROWTH OBTAINED - ....Imaging Chest X-ray: Report Reviewed Cat Scan: Report Reviewed Problem List - Problems (1) UTI (urinary tract infection) Code(s): N39.0 - URINARY TRACT INFECTION, SITE NOT SPECIFIED Qualifiers: Urinary tract infection type: site unspecified Hematuria presence: with hematuria Qualified Code(s): N39.0 - Urinary tract infection, site not specified; R31.9 - Hematuria, unspecified (2) Anemia Code(s): D64.9 - ANEMIA, UNSPECIFIED Qualifiers: Iron deficiency anemia type: chronic blood loss (3) Altered mental status Code(s): R41.82 - ALTERED MENTAL STATUS, UNSPECIFIED Qualifiers: Altered mental status type: somnolence Qualified Code(s): R40.0 - Somnolence (4) CAD (coronary artery disease) Code(s): I25.10 - ATHSCL HEART DISEASE OF [place] CORONARY ARTERY W/O ANG PCTRS Qualifiers: Coronary Disease-Associated Artery/Lesion type: bypass graft [place] vs. transplanted heart: [place] heart Associated angina: with stable angina Qualified Code(s): I25.708 - Atherosclerosis of coronary artery bypass graft(s) , unspecified, with other forms of angina pectoris (5) Diabetes type 2, uncontrolled Code(s): E11.65 - TYPE 2 DIABETES MELLITUS WITH HYPERGLYCEMIA (6) Hyperlipidemia Code(s): E78.5 - HYPERLIPIDEMIA, UNSPECIFIED Qualifiers: Hyperlipidemia type: pure hypercholesterolemia Qualified Code(s): E78.00 - Pure hypercholesterolemia, unspecified; E78.0 - Pure hypercholesterolemia (7) Hypertension Code(s): I10 - ESSENTIAL (PRIMARY) HYPERTENSION Qualifiers: Hypertension type: essential hypertension Qualified Code(s): I10 - Essential (primary) hypertension (8) S/P CABG (coronary artery bypass graft) Code(s): Z95.1 - PRESENCE OF AORTOCORONARY BYPASS GRAFT Assessment/Plan 87 y.o. female with multiple medical co-morbidities presenting with AMS, fever, hyperglycemia, elevated lactic acid level. She has been treated for ESBL + E.coli and Staph haemolyticus UTIs UTI Fever Lactic acidosis Uncontrolled DM CAD s/p CABG HTN HLD Dementia -- blood and urine cultures no growth -- initial U/A with evidence of bacteriuria -- suggest continue Levaquin po x 4 more days -- pt is alert, afebrile, without distress vitals stable for discharge today case discussed with daughter over the phone. Instructed to seek medical attention if previous symptoms return or pt develops diarrhea/rash.
--- NOTE | 2018-05-10 15:29 | PN ---
Teaching Attending Note Name of Resident: Rogerio White ATTENDING PHYSICIAN STATEMENT I saw and evaluated the patient. I reviewed the resident's note and discussed the case with the resident. I agree with the resident's findings and plan as documented. SUBJECTIVE: Patient has no complaints. OBJECTIVE: Vital Signs Period Temp Pulse Resp BP Sys/Iniguez Pulse Ox Last 24 Hr 98.1 F-98.8 F 68-74 19-20 131-140/54-90 95-95 HEART: S1S2, RRR, (+) 2/6 SM LUNGS: Clear ABDOMEN: Soft, non-distended, (+) suprapubic tenderness, normal BS EXTREMITIES: No edema Laboratory Results - last 24 hr 05/09/18 05/09/18 05/10/18 17:50 22:09 05:43 POC Glucometer 139 174 142 05/10/18 11:40 POC Glucometer 255 Current Medications Generic Name Dose Route Start Last Admin Trade Name Freq PRN Reason Stop Dose Admin Acetaminophen 650 mg 05/07/18 19:52 Tylenol - PO Q6H PRN FEVER Amlodipine Besylate 10 mg 05/08/18 10:00 05/10/18 10:44 Norvasc - PO 10 mg DAILY [facility] Administration Aspirin 81 mg 05/08/18 10:00 05/10/18 10:44 Asa - PO 81 mg DAILY [facility] Administration Atorvastatin Calcium 20 mg 05/07/18 22:00 05/09/18 21:59 Lipitor - PO 20 mg HS [facility] Administration Bisacodyl 10 mg 05/07/18 19:30 Dulcolax Suppository - RC DAILY PRN CONSTIPATION Calcium Carbonate 1,300 mg 05/07/18 22:00 05/10/18 10:43 Calcium Carbonate - PO 1,300 mg BID [facility] Administration Clopidogrel Bisulfate 75 mg 05/08/18 10:00 05/10/18 10:44 Plavix - PO 75 mg DAILY [facility] Administration Docusate Sodium 100 mg 05/07/18 22:00 05/10/18 10:44 Colace - PO 100 mg BID [facility] Administration Duloxetine HCl 20 mg 05/08/18 10:00 05/10/18 10:44 Cymbalta - PO 20 mg DAILY [facility] Administration Ferrous Sulfate 325 mg 05/08/18 10:00 05/10/18 10:44 Feosol - PO 325 mg DAILY [facility] Administration Heparin Sodium (Porcine) 5,000 unit 05/07/18 22:00 05/10/18 14:45 Heparin - SQ 5,000 unit TID [facility] Administration Insulin Aspart 1 vial 05/08/18 16:30 05/10/18 12:03 Novolog Vial Sliding Scale - SQ 6 units TIDAC [facility] Administration Protocol Levofloxacin 500 mg 05/10/18 06:00 05/10/18 05:54 Levaquin - PO 500 mg DAILY@0600 [facility] Administration Metoprolol Succinate 75 mg 05/07/18 22:00 05/10/18 10:44 Toprol Xl - PO 75 mg BID [facility] Administration Polyethylene Glycol 17 gm 05/07/18 22:00 05/10/18 14:45 Miralax (For Daily Use) - PO 17 gm TID [facility] Administration Senna 1 tab 05/07/18 22:00 05/09/18 21:59 Senna - PO 1 tab HS [facility] Administration Tamsulosin HCl 0.8 mg 05/08/18 08:30 05/10/18 08:44 Flomax - PO 0.8 mg DAILY@0830 [facility] Administration ASSESSMENT AND PLAN: This is an 87 year old woman with a history of CAD, CABG, HTN, hyperlipidemia, type 2 DM, CVA, dementia who presented to the ED with confusion. 1. Acute metabolic encephalopathy - Secondary to sepsis/UTI - Resolved 2. Severe sepsis (temp 100.8, HR 102, lactic acid 4.5) secondary to UTI - Has history of ESBL (+) E. coli - Urine, blood cultures negative - Discharge home on Levaquin 3. Hyponatremia, hypovolemic - Improved 4. Anemia, chronic - Likely secondary to chronic illness, possible iron deficiency - Recent iron studies showed low iron, low normal TIBC, low iron saturation. Ferritin not done - Recent stool (+) for occult blood - Hemoglobin stable 5. CAD, history of CABG - Continue aspirin, Plavix, Lipitor, Toprol XL 6. HTN - Continue Toprol XL, Norvasc 7. Hyperlipidemia - Continue Lipitor 8. History of CVA - Continue aspirin, Lipitor 9. Type 2 DM - Continue Novolog sliding scale
== END 2018-05-10 19:36 | disposition home health service (06) | DRG 871 ==
LOC: JER 15:30 → JERBED 18:55 → J6S 20:32
PROVIDERS: ADMIT Internal Medicine; ATTEND Internal Medicine
DX: A41.9 Sepsis, unspecified organism (principal); G93.41 Metabolic encephalopathy; E87.2 Acidosis; N39.0 Urinary tract infection, site not specified; E87.1 Hypo-osmolality and hyponatremia; D64.9 Anemia, unspecified; I25.10 Atherosclerotic heart disease of native coronary artery without angina pectoris; Z95.1 Presence of aortocoronary bypass graft; E78.5 Hyperlipidemia, unspecified; F03.90 Unspecified dementia, unspecified severity, without behavioral disturbance, psychotic disturbance, mood disturbance, and anxiety; R41.82 Altered mental status, unspecified; E11.65 Type 2 diabetes mellitus with hyperglycemia
CPT/HCPCS: 36415; 70450-TC; 71045-TC-FY; 80053; 81003; 81015; 82803; 82962; 83605; 83735; 84100; 84484; 85025; 85027; 85610; 85730; 87040; 87086; 93005; 93010; 97161-GP; 99285-25; J0131; J1644; J7030

== ENCOUNTER 2018-11-23 12:34 | Inpatient (IN) | payer OTHER ==
--- NOTE | 2018-11-23 12:44 | PDOC ---
History of Present Illness - General Stated Complaint: Urinary Problem - History of Present Illness Initial Comments: 11/23/18 15:59 88F with pmh of CAD s/p CABG and PCI, dementia, DM, HTN, HLD, DM, CVA, constipation, multiple ESBL UTIs presents to the emergency department with urinary symptoms. Per aide, She witnessed purulent and foul smelling urine today with discomfort upon urination. The patient has a hx of UTIs with hx of ESBL sensitive to Zosyn. Allergies: Seroquel, Ranolazine Social history: No hx of tobacco reported, no alcohol or drug use reported. Surgical history: s/p quadruple bypass, R cardiac stent placement PCP: Dr. Lyons. Past History - Past Medical History Allergies/Adverse Reactions: Allergies Allergy/AdvReac Type Severity Reaction Status Date / Time quetiapine [From Seroquel] Allergy Verified 11/23/18 13:16 ranolazine [From Ranexa] Allergy Verified 11/23/18 13:16 Home Medications: Ambulatory Orders Duloxetine HCl 20 mg PO DAILY 12/23/15 Ferrous Sulfate 325 mg PO DAILY 12/23/15 Polyethylene Glycol 3350 [Miralax 119 gm Btl -] 17 gm PO TID 12/23/15 metFORMIN HCL [Metformin HCl] 850 mg PO BID 12/23/15 Docusate Sodium [Colace -] 100 mg PO BID #40 capsule 04/14/16 Calcium Carbonate - 1,300 mg PO BID #30 tablet 06/13/17 Lactobacillus Acidophilus [Bacid -] 1 tab PO DAILY tab 06/13/17 Metoprolol Succinate [Toprol XL -] 75 mg PO BID #180 tab.sr.24h 06/13/17 Tamsulosin HCl [Flomax -] 0.8 mg PO DAILY@0830 #30 cap 06/23/17 Amlodipine Besylate [Norvasc -] 10 mg PO DAILY 01/16/18 Atorvastatin Ca [Lipitor] 20 mg PO HS 01/16/18 Clopidogrel Bisulfate [Plavix] 75 mg PO DAILY 01/16/18 Aspirin [ASA -] 81 mg PO DAILY tab.chew 01/18/18 Anemia: No Asthma: No Cancer: No Cardiac Disorders: Yes (angina) CVA: Yes COPD: No CHF: No Dementia: Yes Diabetes: Yes GI Disorders: Yes (Constipation) Disorders: Yes (UTI) HTN: Yes Hypercholesterolemia: Yes Liver Disease: No Seizures: No Thyroid Disease: No - Surgical History Abdominal Surgery: Yes Appendectomy: Yes Cardiac Surgery: Yes (QUAD. BYPASS, CARDIAC STENT) Cholecystectomy: No Lung Surgery: No Neurologic Surgery: No Orthopedic Surgery: No - Immunization History Immunization Up to Date: Yes - Suicide/Smoking/Psychosocial Hx Smoking Status: No Smoking History: Never smoked Have you smoked in the past 12 months: No Number of Cigarettes Smoked Daily: 0 Hx Alcohol Use: No Drug/Substance Use Hx: No Substance Use Type: None Hx Substance Use Treatment: No Cardiac Specific PMH - Complaint Specific PMHX Abdominal Aortic Aneurysm: No Angina: No Cardiac Arrhythmia: No Cardiac Stent: No GERD: No Pacemaker: No Pulmonary Embolus: No Valvular Heart Disease: No Peripheral Vascular Disease: No Review of Systems - Review of Systems Able to Perform ROS?: No (dementia) *Physical Exam - Vital Signs Last Vital Signs Temp Pulse Resp BP Pulse Ox 98.2 F 89 17 152/119 H 100 11/23/18 15:30 11/23/18 15:30 11/23/18 15:30 11/23/18 15:30 11/23/18 13:09 - Physical Exam General Appearance: Yes: Thin HEENT: positive: EOMI, DAPHNEY, Normal ENT Inspection Respiratory/Chest: positive: Lungs Clear, Normal Breath Sounds. negative: Chest Tender, Respiratory Distress Cardiovascular: positive: Regular Rhythm, Regular Rate, S1, S2 Gastrointestinal/Abdominal: positive: Normal Bowel Sounds, Tender (suprapubic), Flat, Soft Extremity: positive: Normal Capillary Refill, Normal Inspection Neurologic: positive: Alert, Normal Response. negative: Fully Oriented, Normal Mood/Affect ED Treatment Course - LABORATORY CBC & Chemistry Diagram: 11/23/18 13:35 11/23/18 13:35 - ADDITIONAL ORDERS Additional order review: Laboratory Results 11/23/18 11/23/18 11/23/18 14:00 13:54 13:35 PT with INR INR PTT (Actin FS) VBG pH 7.37 POC VBG pCO2 40.3 L POC VBG pO2 43.9 H VBG HCO3 22.6 L VBG O2 Sat (Sosa) 77.4 VBG Base Excess -2.0 Sodium Potassium Chloride Carbon Dioxide Anion Gap BUN Creatinine Creat Clearance w eGFR Random Glucose Lactic Acid Calcium Total Bilirubin AST ALT Alkaline Phosphatase Troponin I < 0.02 Total Protein Albumin Urine Color Yellow Urine Appearance Turbid Urine pH 6.5 Ur Specific [place] 1.010 Urine Protein 3+ H Urine Glucose (UA) 1+ H Urine Ketones Negative Urine Blood 2+ H Urine Nitrite Negative Urine Bilirubin Negative Urine Urobilinogen 0.2 Ur Leukocyte Esterase 3+ H Urine WBC (Auto) 1251 Urine RBC (Auto) 10 Urine Casts (Auto) 4 U Epithel Cells (Auto) 1.1 Urine Crystals (Auto) Urine Bacteria (Auto) 304.7 Urine Yeast (Auto) Yeast seen 11/23/18 11/23/18 11/23/18 13:35 13:35 13:35 PT with INR 11.80 INR 1.00 PTT (Actin FS) 33.4 VBG pH POC VBG pCO2 POC VBG pO2 VBG HCO3 VBG O2 Sat (Sosa) VBG Base Excess Sodium 133 L Potassium 4.4 Chloride 100 Carbon Dioxide 24 Anion Gap 9 BUN 26 H Creatinine 0.7 Creat Clearance w eGFR 78.97 Random Glucose 211 H Lactic Acid 3.3 H* Calcium 9.4 Total Bilirubin 0.3 AST 7 L ALT 11 L Alkaline Phosphatase 94 Troponin I Total Protein 8.0 Albumin 3.4 Urine Color Urine Appearance Urine pH Ur Specific [place] Urine Protein Urine Glucose (UA) Urine Ketones Urine Blood Urine Nitrite Urine Bilirubin Urine Urobilinogen Ur Leukocyte Esterase Urine WBC (Auto) Urine RBC (Auto) Urine Casts (Auto) U Epithel Cells (Auto) Urine Crystals (Auto) Urine Bacteria (Auto) Urine Yeast (Auto) 11/23/18 13:35 RBC 4.40 MCV 87.5 MCHC 32.7 RDW 14.2 MPV 8.0 Neutrophils % 69.6 D Lymphocytes % 20.9 D Monocytes % 8.0 D Eosinophils % 1.3 D Basophils % 0.2 - RADIOLOGY Radiology Studies Ordered: Category Date Time Status CHEST X-RAY PORTABLE* [RAD] Stat Radiology 11/23/18 12:59 Completed - Medications Given in the ED: ED Medications Discontinued Medications Generic Name Dose Route Start Last Admin Trade Name Freq PRN Reason Stop Dose Admin Piperacillin Sod/Tazobactam 50 mls @ 100 mls/hr 11/23/18 14:42 11/23/18 15:32 Sod 3.375 gm/ Dextrose IVPB 11/23/18 15:11 Not Given ONCE ONE Protocol Ertapenem 1 gm/ Sodium 50 mls @ 100 mls/hr 11/23/18 15:01 11/23/18 15:24 Chloride IVPB 11/23/18 15:30 100 mls/hr ONCE ONE Administration Medical Decision Making - Medical Decision Making 11/23/18 16:01 UTi vs Urosepsis Septic protocol ordered. UA confirmed the patient has a purulent urine. also lactate of 3.1 despite non- sirs vitals. Will treat with Ertapenem and attempt to bring down lactate and BP (190's) Admitted to med surg hospitalist 11/23/18 16:04 EKG - NSR rate of 65 bpm, LAD, no st elevation or depression, t waves upright *DC/Admit/Observation/Transfer Diagnosis at time of Disposition: Sepsis, History of ESBL E. coli infection, UTI (urinary tract infection) - Discharge Dispostion Decision to Admit order: Yes Decision to Admit order Date/Time: Decision to Admit Order Category Date Time Status Decision to Admit to Hospital Routine Admission 11/23/18 14:55 Ordered - Referrals Referrals: Nisa Lyons MD [Primary Care Provider] - - Patient Instructions - Post Discharge Activity
--- NOTE | 2018-11-23 12:51 | PDOC ---
Attending Attestation - HPI HPI: 11/23/18 14:08 The patient is an 88-year-old female with a past medical history significant for CAD s/p CABG and PCI, dementia, DM, HTN, HLD, DM, CVA, constipation, multiple UTIs presents to the emergency department with urinary symptoms. Per the family, the patients been having urinary symptoms of foul smelling urine and pain with urination. The patient has a hx of UTIs with hx of ESBL sensitive to Zosyn. Allergies: Seroquel, Ranolazine Social history: No hx of tobacco reported, no alcohol or drug use reported. Surgical history: s/p quadruple bypass, R cardiac stent placement PCP: Dr. Lyons. - Physicial Exam PE: 11/23/18 14:08 GENERAL: The patient is in no acute distress. ENT: Ears normal, nares patent, oropharynx clear without exudates. Moist mucous membranes. NECK: Normal range of motion, supple, no nuchal rigidity LUNGS: Breath sounds equal, clear to auscultation bilaterally. No wheezes, and no crackles. HEART: Regular rate and rhythm, normal S1 and S2, 3/6 murmur to the left sternal border. No rub or gallop. ABDOMEN: +Suprapubic tenderness. Soft. No guarding, no rebound. No masses palpable. EXTREMITIES: no lower extremity edema. NEUROLOGICAL: Awake and alert, answers questions appropriately. SKIN: Warm, Dry, normal turgor, no rashes or lesions noted. - Medical Decision Making 11/23/18 14:10 Documentation prepared by Jesi Senior, acting as medical and scientific illustrator for Pilar Haynes MD. <Jesi Senior - Last Filed: 11/23/18 14:08> - Resident Resident Name: Heriberto Arellano - ED Attending Attestation I have performed the following: I have examined & evaluated the patient, The case was reviewed & discussed with the resident, I agree w/resident's findings & plan, Exceptions are as noted - Medical Decision Making 11/23/18 13:11 Ms Arceo is an 88 yo h/o Dementia, left eye blindness, DM, CVA, HTN, HLD, quadruple bypass (2003), recurrent UTIs brought to the ER by family due to possible UTI (pt has a h/o ESBL) Labs and UA sent 11/23/18 13:48 EKG - NSR rate of 65 bpm, LAD, no st elevation or depression, t waves upright 11/23/18 14:33 Laboratory Tests 11/23/18 11/23/18 11/23/18 13:35 13:35 13:54 INR 1.00 VBG pH 7.37 POC VBG pCO2 40.3 L POC VBG pO2 43.9 H Lactic Acid 3.3 H* 11/23/18 14:40 Laboratory Tests 11/23/18 11/23/18 11/23/18 13:35 13:35 13:35 WBC 7.4 Hgb 12.6 Hct 38.5 D Plt Count 291 D Sodium 133 L Potassium 4.4 Chloride 100 Carbon Dioxide 24 BUN 26 H Creatinine 0.7 Random Glucose 211 H Troponin I < 0.02 11/23/18 15:15 Laboratory Tests 11/23/18 14:00 Urine Blood 2+ H Urine Nitrite Negative Ur Leukocyte Esterase 3+ H Urine WBC (Auto) 1251 Urine RBC (Auto) 10 Abx ordered based on prior cultures Admitted <Pilar Haynes - Last Filed: 11/24/18 14:23>
[2018-11-23 14:00] LABS: BASO % 0.2 % (0-2.0); EOS % 1.3 % (0-4.5); HEMATOCRIT 38.5 % (32.4-45.2); HEMOGLOBIN 12.6 GM/dL (10.7-15.3); LYMPH % 20.9 % (8-40); MCH 28.6 pg (25.7-33.7); MCHC 32.7 g/dl (32.0-36.0); MEAN CELL VOLUME 87.5 fl (80-96); NEUT % 69.6 % (42.8-82.8); PLATELET COUNT 291 K/MM3 (134-434); RDW 14.2 % (11.6-15.6); WHITE BLOOD COUNT 7.4 K/mm3 (4.0-10.0)
[2018-11-23 14:13] LABS: VENOUS PC02 40.3 mmHg (41-51); VENOUS PH 7.37 (7.31-7.41); VENOUS PO2 43.9 mmHg (30-40)
[2018-11-23 14:26] LABS: PROTHROMBIN TIME (PATIENT) 11.8 SEC (9.7-13.0)
[2018-11-23 14:28] LABS: ACTIVATED PTT 33.4 SECONDS (25.2-36.5)
[2018-11-23] MEDS ORDERED: SODIUM CHLORIDE 1,000 ML IV STA ×2 (14:33→20:20)
[2018-11-23 14:36] LABS: ALBUMIN 3.4 g/dl (3.4-5.0); ALK PHOS 94 U/L (45-117); ANION GAP 9 MMOL/L (8-16); BILIRUBIN,TOTAL 0.3 mg/dL (0.2-1); BLOOD UREA NITROGEN 26 mg/dL (7-18); CALCIUM 9.4 mg/dL (8.5-10.1); CHLORIDE 100 mmol/L (98-107); CO2 24 mmol/L (21-32); CREATININE 0.7 mg/dL (0.55-1.3); GLUCOSE,RANDOM 211 mg/dL (74-106); POTASSIUM 4.4 mmol/L (3.5-5.1); SGOT/AST 7 U/L (15-37); SGPT/ALT 11 U/L (13-61); SODIUM 133 mmol/L (136-145)
[2018-11-23 14:38] LABS: EPI CELLS 1.1 /HPF (0-5); PH,URINE 6.5 (5.0-8.0); URINE APPEARANCE TURBID; URINE BACTERIA 304.7 /hpf (NEGATIVE); URINE BILIRUBIN NEGATIVE (NEGATIVE); URINE CASTS 4 /hpf (0-8); URINE COLOR YELLOW; URINE GLUCOSE (UA) 1+ (NEGATIVE); URINE KETONE NEGATIVE (NEGATIVE); URINE LEUK ESTERASE 3+ (NEGATIVE); URINE NITRITE NEGATIVE (NEGATIVE); URINE PROTEIN 3+ (NEGATIVE); URINE RBC 10 /hpf (0-4); URINE UROBILINOGEN 0.2 mg/dL (0.2-1.0); URINE WBC 1251 /hpf (0-5)
[2018-11-23] MEDS ORDERED: PIPERACILLIN/TAZOB 3.375 GM 3.375 GM in DEXTROSE 5%-WATER - 50 ML IVPB ONE (14:42)
[2018-11-23] MEDS ORDERED: ERTAPENEM SODIUM 1 GM in SODIUM CHLORIDE 50 ML IVPB ONE (15:01)
[2018-11-23] MEDS ORDERED: ERTAPENEM SODIUM 1 GM VIAL ONE (15:08)
[2018-11-23 15:21] LABS: YEAST YEAST SEEN (NEGATIVE)
[2018-11-23] MEDS ORDERED: amLODIPine BESYLATE 10 MG TABLET (FP) PO ONE (15:32)
[2018-11-23] MEDS ORDERED: amLODIPine BESYLATE 5 MG TABLET (FP) ONE (15:34)
--- NOTE | 2018-11-23 16:09 | HP ---
CHIEF COMPLAINT: Fowl urine PCP: Dr. Lyons HISTORY OF PRESENT ILLNESS: This is a 88 year old female with a past medical history of CAD s/p CABG and PCI , dementia, DM, HTN, HLD, DM, CVA, constipation, multiple ESBL UTIs presents to the emergency department with home health aide, and daughter. Aide reports fowl smelling urine/pelvic pain, also noticed tiny lump on right labia that had small amount of puss coming out, now resolved. Denies fever, chill, n, v, diarrhea, back pain, cough. She was hospitalized in April 2019 for ESBL positive urine. ER course was notable for: straight cath with turbid ; purulent urine; Lactic acid 3.3 Recent Travel: no PAST MEDICAL HISTORY: as above PAST SURGICAL HISTORY: CABG, s/p stent Social History: Smoking:no Alcohol:no Drugs: no Family History: Allergies quetiapine [From Seroquel] Allergy (Verified 11/23/18 13:16) ranolazine [From Ranexa] Allergy (Verified 11/23/18 13:16) HOME MEDICATIONS: Home Medications Medication Instructions Recorded Duloxetine HCl 20 mg PO DAILY 12/23/15 Ferrous Sulfate 325 mg PO DAILY 12/23/15 Polyethylene Glycol 3350 [Miralax 17 gm PO TID 12/23/15 119 gm Btl -] metFORMIN HCL [Metformin HCl] 850 mg PO BID 12/23/15 Docusate Sodium [Colace -] 100 mg PO BID #40 capsule 04/14/16 Calcium Carbonate - 1,300 mg PO BID #30 tablet 06/13/17 Lactobacillus Acidophilus [Bacid -] 1 tab PO DAILY tab 06/13/17 Metoprolol Succinate [Toprol XL -] 75 mg PO BID #180 tab.sr.24h 06/13/17 Tamsulosin HCl [Flomax -] 0.8 mg PO DAILY@0830 #30 cap 06/23/17 Amlodipine Besylate [Norvasc -] 10 mg PO DAILY 01/16/18 Atorvastatin Ca [Lipitor] 20 mg PO HS 01/16/18 Clopidogrel Bisulfate [Plavix] 75 mg PO DAILY 01/16/18 Aspirin [ASA -] 81 mg PO DAILY tab.chew 01/18/18 REVIEW OF SYSTEMS CONSTITUTIONAL: Absent: fever, chills, diaphoresis, generalized weakness, malaise, loss of appetite, weight change HEENT: Absent: rhinorrhea, nasal congestion, throat pain, throat swelling, difficulty swallowing, mouth swelling, ear pain, eye pain, visual changes CARDIOVASCULAR: Absent: chest pain, syncope, palpitations, irregular heart rate, lightheadedness , peripheral edema RESPIRATORY: Absent: cough, shortness of breath, dyspnea with exertion, orthopnea, wheezing, stridor, hemoptysis GASTROINTESTINAL: Absent: abdominal pain, abdominal distension, nausea, vomiting, diarrhea, constipation, melena, hematochezia GENITOURINARY: Positive: pelvic pain; fowl urine Absent: dysuria, frequency, urgency, hesitancy, hematuria, flank pain, genital pain MUSCULOSKELETAL: Absent: myalgia, arthralgia, joint swelling, back pain, neck pain SKIN: Absent: rash, itching, pallor HEMATOLOGIC/IMMUNOLOGIC: Absent: easy bleeding, easy bruising, lymphadenopathy, frequent infections ENDOCRINE: Absent: unexplained weight gain, unexplained weight loss, heat intolerance, cold intolerance NEUROLOGIC: Absent: headache, focal weakness or paresthesias, dizziness, unsteady gait, seizure, mental status changes, bladder or bowel incontinence PSYCHIATRIC: Absent: anxiety, depression, suicidal or homicidal ideation, hallucinations. PHYSICAL EXAMINATION Vital Signs - 24 hr 11/23/18 11/23/18 13:09 15:30 Temperature 98 F 98.2 F Pulse Rate 67 89 Respiratory 17 17 Rate Blood Pressure 191/80 H 152/119 H O2 Sat by Pulse 100 Oximetry (%) GENERAL:very frail , bedbound female with dementia; can answer some questions HEAD: Normal with no signs of trauma. EYES:left eye blindness; right pupil reactive NECK: Normal range of motion, supple without lymphadenopathy, JVD, or masses. LUNGS: Breath sounds equal, clear to auscultation bilaterally. No wheezes, and no crackles. No accessory muscle use. HEART: Regular rate and rhythm, normal S1 and S2 without murmur, rub or gallop. ABDOMEN: Soft, slightly tender abdomen, not distended, normoactive bowel sounds , no guarding, no rebound, no masses. No hepatomegaly or splenomegaly. MUSCULOSKELETAL: Normal range of motion at all joints. No bony deformities or tenderness. No CVA tenderness. UPPER EXTREMITIES: 2+ pulses, warm, well-perfused. No cyanosis. No clubbing. No peripheral edema. LOWER EXTREMITIES: 2+ pulses, warm, well-perfused. No calf tenderness. No peripheral edema. NEUROLOGICAL: dementia; bed bound; SKIN: no ulcers Vagina;right labia with ruptured hair follicle?; pimple?; no puss, swelling, erythema Laboratory Results - last 24 hr 11/23/18 11/23/18 11/23/18 13:35 13:35 13:35 WBC 7.4 RBC 4.40 Hgb 12.6 Hct 38.5 D MCV 87.5 MCH 28.6 MCHC 32.7 RDW 14.2 Plt Count 291 D MPV 8.0 Absolute Neuts (auto) 5.1 Neutrophils % 69.6 D Lymphocytes % 20.9 D Monocytes % 8.0 D Eosinophils % 1.3 D Basophils % 0.2 Nucleated RBC % 0 PT with INR 11.80 INR 1.00 PTT (Actin FS) 33.4 VBG pH POC VBG pCO2 POC VBG pO2 VBG HCO3 VBG O2 Sat (Sosa) VBG Base Excess Sodium 133 L Potassium 4.4 Chloride 100 Carbon Dioxide 24 Anion Gap 9 BUN 26 H Creatinine 0.7 Creat Clearance w eGFR 78.97 Random Glucose 211 H Lactic Acid Calcium 9.4 Total Bilirubin 0.3 AST 7 L ALT 11 L Alkaline Phosphatase 94 Troponin I Total Protein 8.0 Albumin 3.4 Urine Color Urine Appearance Urine pH Ur Specific [place] Urine Protein Urine Glucose (UA) Urine Ketones Urine Blood Urine Nitrite Urine Bilirubin Urine Urobilinogen Ur Leukocyte Esterase Urine WBC (Auto) Urine RBC (Auto) Urine Casts (Auto) U Epithel Cells (Auto) Urine Crystals (Auto) Urine Bacteria (Auto) Urine Yeast (Auto) 11/23/18 11/23/18 11/23/18 13:35 13:35 13:54 WBC RBC Hgb Hct MCV MCH MCHC RDW Plt Count MPV Absolute Neuts (auto) Neutrophils % Lymphocytes % Monocytes % Eosinophils % Basophils % Nucleated RBC % PT with INR INR PTT (Actin FS) VBG pH 7.37 POC VBG pCO2 40.3 L POC VBG pO2 43.9 H VBG HCO3 22.6 L VBG O2 Sat (Sosa) 77.4 VBG Base Excess -2.0 Sodium Potassium Chloride Carbon Dioxide Anion Gap BUN Creatinine Creat Clearance w eGFR Random Glucose Lactic Acid 3.3 H* Calcium Total Bilirubin AST ALT Alkaline Phosphatase Troponin I < 0.02 Total Protein Albumin Urine Color Urine Appearance Urine pH Ur Specific [place] Urine Protein Urine Glucose (UA) Urine Ketones Urine Blood Urine Nitrite Urine Bilirubin Urine Urobilinogen Ur Leukocyte Esterase Urine WBC (Auto) Urine RBC (Auto) Urine Casts (Auto) U Epithel Cells (Auto) Urine Crystals (Auto) Urine Bacteria (Auto) Urine Yeast (Auto) 11/23/18 14:00 WBC RBC Hgb Hct MCV MCH MCHC RDW Plt Count MPV Absolute Neuts (auto) Neutrophils % Lymphocytes % Monocytes % Eosinophils % Basophils % Nucleated RBC % PT with INR INR PTT (Actin FS) VBG pH POC VBG pCO2 POC VBG pO2 VBG HCO3 VBG O2 Sat (Sosa) VBG Base Excess Sodium Potassium Chloride Carbon Dioxide Anion Gap BUN Creatinine Creat Clearance w eGFR Random Glucose Lactic Acid Calcium Total Bilirubin AST ALT Alkaline Phosphatase Troponin I Total Protein Albumin Urine Color Yellow Urine Appearance Turbid Urine pH 6.5 Ur Specific [place] 1.010 Urine Protein 3+ H Urine Glucose (UA) 1+ H Urine Ketones Negative Urine Blood 2+ H Urine Nitrite Negative Urine Bilirubin Negative Urine Urobilinogen 0.2 Ur Leukocyte Esterase 3+ H Urine WBC (Auto) 1251 Urine RBC (Auto) 10 Urine Casts (Auto) 4 U Epithel Cells (Auto) 1.1 Urine Crystals (Auto) Urine Bacteria (Auto) 304.7 Urine Yeast (Auto) Yeast seen ASSESSMENT/PLAN: 88 year old female with CAD s/p CABG and PCI, dementia, DM, HTN, HLD, DM, CVA, constipation, multiple ESBL UTIs, presents with fowl urine, pelvic pain and lactic acid of 3.3. #sepsis secondary to urinary tract infection -IVF, blood culture, urine culture -IV ertapenam -repeat lactic acid -monitor I/O #CAD: -cont asa, plavix, BB, statin #HTN: -norvasc and metoprolol with holding parameters #diabetes M _insulin ss -bgm VTE ppl; heparin sq Diet: diabetic Disposition: medsur Visit type - Emergency Visit Emergency Visit: Yes ED Registration Date: 11/23/18 Care time: The patient presented to the Emergency Department on the above date and was hospitalized for further evaluation of their emergent condition. - New Patient This patient is new to me today: Yes Date on this admission: 11/23/18 - Critical Care Critical Care patient: No
--- NOTE | 2018-11-23 17:06 | PN ---
Teaching Attending Note Name of Resident: Oralia Rosa ATTENDING PHYSICIAN STATEMENT I saw and evaluated the patient. I reviewed the resident's note and discussed the case with the resident. I agree with the resident's findings and plan as documented with exceptions below. SUBJECTIVE: 88 yof with PMhx of Dementia, left eye blindness, DM, CVA, HTN, HLD, quadruple bypass (2004), CAD with abnormal stress test (medical management),orthostatic hypotension, recurrent UTIs, bedridden, cared for by daughter, brought in as aide note her urine was foul smelling and cloudy for 1 day. Patient reports lower abdominal pain which she currently denies. History is limited by dementia and provided by daughter and aide at the bedside. 12 point ROS done, per family, neg for fevers, chills, changes in bowels, change in PO intake, or new concerns otherwise. OBJECTIVE: Vital Signs Period Temp Pulse Resp BP Sys/Iniguez Pulse Ox Last 24 Hr 98 F-98.2 F 67-89 17-17 152-191/80-119 100 Intake & Output 11/20/18 11/21/18 11/22/18 11/23/18 23:59 23:59 23:59 23:59 Intake Total 150 Balance 150 Weight 100 lb GENERAL: Awake, alert, oriented to self and family at bedside, in no acute distress. HEAD: Normal with no signs of trauma. EYES:Left eye blindness, sclera anicteric, conjunctiva clear. No lid lag. EARS, NOSE, THROAT: Ears normal, nares patent, oropharynx clear without exudates. Moist mucous membranes. NECK: Normal range of motion, supple, no JVD LUNGS: Breath sounds equal, clear to auscultation bilaterally. No wheezes, and no crackles. No accessory muscle use. HEART: Regular rate and rhythm, normal S1 and S2 ABDOMEN: Soft, nontender, not distended, normoactive bowel sounds, no guarding, no rebound, no masses. No suprapubic or CVA tenderness MUSCULOSKELETAL: Normal range of motion at all joints. No bony deformities or tenderness. No CVA tenderness. UPPER EXTREMITIES: 2+ pulses, warm, well-perfused. No cyanosis. No clubbing. No peripheral edema. LOWER EXTREMITIES: 2+ pulses, warm, well-perfused. No calf tenderness. No peripheral edema. NEUROLOGICAL: AA, oriented to self and family at bedside, moves all extremities , facial symmetry, tongue midline, Normal speech. Gait not observed PSYCHIATRIC: Cooperative. Good eye contact. Appropriate mood and affect. SKIN: Warm, dry, normal turgor, no rashes or lesions noted, normal capillary refill. Gential: right inner labia pimple 1mm lesion no surrounding erythema or discharge Home Medications Medication Instructions Recorded Duloxetine HCl 20 mg PO DAILY 12/23/15 Ferrous Sulfate 325 mg PO DAILY 12/23/15 Polyethylene Glycol 3350 [Miralax 17 gm PO TID 12/23/15 119 gm Btl -] metFORMIN HCL [Metformin HCl] 850 mg PO BID 12/23/15 Docusate Sodium [Colace -] 100 mg PO BID #40 capsule 04/14/16 Calcium Carbonate - 1,300 mg PO BID #30 tablet 06/13/17 Lactobacillus Acidophilus [Bacid -] 1 tab PO DAILY tab 06/13/17 Metoprolol Succinate [Toprol XL -] 75 mg PO BID #180 tab.sr.24h 06/13/17 Tamsulosin HCl [Flomax -] 0.8 mg PO DAILY@0830 #30 cap 06/23/17 Amlodipine Besylate [Norvasc -] 10 mg PO DAILY 01/16/18 Atorvastatin Ca [Lipitor] 20 mg PO HS 01/16/18 Clopidogrel Bisulfate [Plavix] 75 mg PO DAILY 01/16/18 Aspirin [ASA -] 81 mg PO DAILY tab.chew 01/18/18 Active Medications Amlodipine Besylate (Norvasc -) 10 mg PO DAILY [facility] Aspirin (Asa -) 81 mg PO DAILY [facility] Atorvastatin Calcium (Lipitor -) 20 mg PO HS [facility] Calcium Carbonate (Calcium Carbonate -) 1,300 mg PO BID [facility] Clopidogrel Bisulfate (Plavix -) 75 mg PO DAILY [facility] Docusate Sodium (Colace -) 100 mg PO BID [facility] Duloxetine HCl (Cymbalta -) 20 mg PO DAILY [facility] Ferrous Sulfate (Feosol -) 325 mg PO DAILY [facility] Heparin Sodium (Porcine) (Heparin -) 5,000 unit SQ TID [facility] Sodium Chloride (Normal Saline -) 1,000 mls @ 100 mls/hr IV ASDIR STA Stop: 11/24/18 00:32 Last Admin: 11/23/18 15:03 Dose: 100 mls/hr Ertapenem 1 gm/ Sodium (Chloride) 50 mls @ 100 mls/hr IVPB DAILY [facility] Insulin Aspart (Novolog Vial Sliding Scale -) 1 vial SQ ACHS [facility]; Protocol Lactobacillus Acidophilus (Bacid -) 1 tab PO DAILY [facility] Metoprolol Succinate (Toprol Xl -) 75 mg PO BID [facility] Polyethylene Glycol (Miralax (For Daily Use) -) 17 gm PO TID [facility] Tamsulosin HCl (Flomax -) 0.8 mg PO DAILY@0830 [facility] Laboratory Results - last 24 hr 11/23/18 11/23/18 11/23/18 13:35 13:35 13:35 WBC 7.4 RBC 4.40 Hgb 12.6 Hct 38.5 D MCV 87.5 MCH 28.6 MCHC 32.7 RDW 14.2 Plt Count 291 D MPV 8.0 Absolute Neuts (auto) 5.1 Neutrophils % 69.6 D Lymphocytes % 20.9 D Monocytes % 8.0 D Eosinophils % 1.3 D Basophils % 0.2 Nucleated RBC % 0 PT with INR 11.80 INR 1.00 PTT (Actin FS) 33.4 VBG pH POC VBG pCO2 POC VBG pO2 VBG HCO3 VBG O2 Sat (Sosa) VBG Base Excess Sodium 133 L Potassium 4.4 Chloride 100 Carbon Dioxide 24 Anion Gap 9 BUN 26 H Creatinine 0.7 Creat Clearance w eGFR 78.97 Random Glucose 211 H Lactic Acid Calcium 9.4 Total Bilirubin 0.3 AST 7 L ALT 11 L Alkaline Phosphatase 94 Troponin I Total Protein 8.0 Albumin 3.4 Urine Color Urine Appearance Urine pH Ur Specific [facility] Urine Protein Urine Glucose (UA) Urine Ketones Urine Blood Urine Nitrite Urine Bilirubin Urine Urobilinogen Ur Leukocyte Esterase Urine WBC (Auto) Urine RBC (Auto) Urine Casts (Auto) U Epithel Cells (Auto) Urine Crystals (Auto) Urine Bacteria (Auto) Urine Yeast (Auto) 11/23/18 11/23/18 11/23/18 13:35 13:35 13:54 WBC RBC Hgb Hct MCV MCH MCHC RDW Plt Count MPV Absolute Neuts (auto) Neutrophils % Lymphocytes % Monocytes % Eosinophils % Basophils % Nucleated RBC % PT with INR INR PTT (Actin FS) VBG pH 7.37 POC VBG pCO2 40.3 L POC VBG pO2 43.9 H VBG HCO3 22.6 L VBG O2 Sat (Sosa) 77.4 VBG Base Excess -2.0 Sodium Potassium Chloride Carbon Dioxide Anion Gap BUN Creatinine Creat Clearance w eGFR Random Glucose Lactic Acid 3.3 H* Calcium Total Bilirubin AST ALT Alkaline Phosphatase Troponin I < 0.02 Total Protein Albumin Urine Color Urine Appearance Urine pH Ur Specific [facility] Urine Protein Urine Glucose (UA) Urine Ketones Urine Blood Urine Nitrite Urine Bilirubin Urine Urobilinogen Ur Leukocyte Esterase Urine WBC (Auto) Urine RBC (Auto) Urine Casts (Auto) U Epithel Cells (Auto) Urine Crystals (Auto) Urine Bacteria (Auto) Urine Yeast (Auto) 11/23/18 14:00 WBC RBC Hgb Hct MCV MCH MCHC RDW Plt Count MPV Absolute Neuts (auto) Neutrophils % Lymphocytes % Monocytes % Eosinophils % Basophils % Nucleated RBC % PT with INR INR PTT (Actin FS) VBG pH POC VBG pCO2 POC VBG pO2 VBG HCO3 VBG O2 Sat (Sosa) VBG Base Excess Sodium Potassium Chloride Carbon Dioxide Anion Gap BUN Creatinine Creat Clearance w eGFR Random Glucose Lactic Acid Calcium Total Bilirubin AST ALT Alkaline Phosphatase Troponin I Total Protein Albumin Urine Color Yellow Urine Appearance Turbid Urine pH 6.5 Ur Specific [facility] 1.010 Urine Protein 3+ H Urine Glucose (UA) 1+ H Urine Ketones Negative Urine Blood 2+ H Urine Nitrite Negative Urine Bilirubin Negative Urine Urobilinogen 0.2 Ur Leukocyte Esterase 3+ H Urine WBC (Auto) 1251 Urine RBC (Auto) 10 Urine Casts (Auto) 4 U Epithel Cells (Auto) 1.1 Urine Crystals (Auto) Urine Bacteria (Auto) 304.7 Urine Yeast (Auto) Yeast seen CXR results reviewed EKG NSR, anterior infarct ASSESSMENT AND PLAN: 88 yof with PMhx of Dementia, left eye blindness, DM, CVA, HTN, HLD, quadruple bypass (2003), CAD with abnormal stress test (medical management),orthostatic hypotension, recurrent UTIs, bedridden, admitted with lower complicated UTI with cystitis -Lower complicated UTI with cystitis with sepsis -Lactic acidosis -Uncontrolled HTN -CAD s/p CABG 2003 and abnormal stress test -NIDDM -HTN -CVA -HLD -Left eye blindness -Dementia Plan: Ertapenem. Follow up blood/urine cultures. Resume home metoprolol/amlodipine. IV hydration, repeat lactate levels ASA/plavix/statin/metoprolol ISS, diabetic diet Pureed diet, aspiration precautions DVTPPX heparin Dispo plan for d/c with daughter pending clinical improvement. Plan discussed with daughter and aide at bedside in detail, all questions answered. total admit time 55 min.
[2018-11-23] MEDS: INSULIN SLIDING SCALE (NOVOLOG) 1 VIAL SQ SCH ×2 (20:46→22:57)
[2018-11-23] MEDS ORDERED: metoPROLOL SUCCINATE 25 MG TAB.SR.24H (FP) PO SCH (22:00)
[2018-11-23] MEDS ORDERED: CALCIUM CARBONATE 650 MG TABLET PO SCH (22:00)
[2018-11-23] MEDS ORDERED: ATORVASTATIN CA 10 MG TABLET (FP) ONE (22:33)
[2018-11-23] MEDS ORDERED: DOCUSATE SODIUM 100 MG CAPSULE (FP) PO ONE (22:34)
[2018-11-23] MEDS ORDERED: HEPARIN NA (PORCINE) 5,000 UNITS/ML 1ML VIAL ONE (22:34)
[2018-11-23] MEDS: POLYETHYLENE GLYCOL 3350 119 GM BTL PO SCH (22:54)
[2018-11-23] MEDS: DOCUSATE SODIUM 100 MG CAPSULE (FP) PO SCH (22:54)
[2018-11-23] MEDS: ATORVASTATIN CA 20 MG TABLET (FP) PO SCH (22:54)
[2018-11-23] MEDS: HEPARIN NA (PORCINE) 5,000 UNITS/ML 1ML VIAL SQ SCH (22:54)
[2018-11-23] MEDS: metoPROLOL SUCCINATE 25 MG TAB.SR.24H (FP) PO SCH (22:55)
[2018-11-24] MEDS: CALCIUM CARBONATE 650 MG TABLET PO SCH ×3 (00:45→22:35)
[2018-11-24 02:25] VITALS: BMI 17.9
[2018-11-24] MEDS: POLYETHYLENE GLYCOL 3350 119 GM BTL PO SCH ×3 (05:24→22:37)
[2018-11-24] MEDS: HEPARIN NA (PORCINE) 5,000 UNITS/ML 1ML VIAL SQ SCH ×3 (05:24→21:10)
[2018-11-24] MEDS: INSULIN SLIDING SCALE (NOVOLOG) 1 VIAL SQ SCH ×4 (07:07→21:11)
[2018-11-24] MEDS: SODIUM CHLORIDE 1,000 ML IV SCH ×2 (08:00→22:47)
[2018-11-24 08:19] LABS: ANION GAP 10 MMOL/L (8-16); BLOOD UREA NITROGEN 26 mg/dL (7-18); CALCIUM 8.8 mg/dL (8.5-10.1); CHLORIDE 107 mmol/L (98-107); CO2 19 mmol/L (21-32); CREATININE 0.7 mg/dL (0.55-1.3); GLUCOSE,RANDOM 112 mg/dL (74-106); PHOSPHOROUS 3.9 mg/dL (2.5-4.9); POTASSIUM 4.5 mmol/L (3.5-5.1); SODIUM 137 mmol/L (136-145)
[2018-11-24 08:55] LABS: BASO % 0.2 % (0-2.0); EOS % 1.4 % (0-4.5); HEMATOCRIT 35.8 % (32.4-45.2); LYMPH % 23.1 % (8-40); MCH 29.6 pg (25.7-33.7); MCHC 33.7 g/dl (32.0-36.0); MEAN CELL VOLUME 87.9 fl (80-96); MEAN PLT VOLUME 8.2 fl (7.5-11.1); MONO % 9.1 % (3.8-10.2); NEUT % 66.2 % (42.8-82.8); PLATELET COUNT 262 K/MM3 (134-434); RBC 4.07 M/mm3 (3.60-5.2); RDW 14.3 % (11.6-15.6)
[2018-11-24] MEDS: TAMSULOSIN HCL 0.4 MG CAP PO SCH (09:41)
[2018-11-24] MEDS: DOCUSATE SODIUM 100 MG CAPSULE (FP) PO SCH ×2 (09:42→21:10)
[2018-11-24] MEDS: CLOPIDOGREL BISULFATE 75 MG TABLET (FP) PO SCH (09:42)
[2018-11-24] MEDS: FERROUS SO4 325 MG TABLET (FP) PO SCH (09:42)
[2018-11-24] MEDS: ASPIRIN 81 MG CHEWABLE TABLETS PO SCH (09:42)
[2018-11-24] MEDS: amLODIPine BESYLATE 10 MG TABLET (FP) PO SCH (09:42)
[2018-11-24] MEDS: LACTOBACILLUS ACIDOPHILUS 1 TABLET PO SCH (09:42)
[2018-11-24] MEDS: metoPROLOL SUCCINATE 25 MG TAB.SR.24H (FP) PO SCH ×2 (09:42→21:11)
[2018-11-24] MEDS: DULoxetine HCL 20 MG CAPSULE.DR (FP) PO SCH (09:44)
[2018-11-24] MEDS ORDERED: ERTAPENEM SODIUM 1 GM in SODIUM CHLORIDE 50 ML IVPB SCH (10:00)
[2018-11-24] MEDS ORDERED: amLODIPine BESYLATE 10 MG TABLET (FP) PO SCH (10:00)
[2018-11-24] MEDS ORDERED: FLUCONAZOLE 100 MG TABLET (UD) PO SCH (12:30)
--- NOTE | 2018-11-24 12:30 | PN ---
Physical Exam: SUBJECTIVE: Patient seen and examined, reports lower abdominal pain. no complaints otherwise. OBJECTIVE: Vital Signs Period Temp Pulse Resp BP Sys/Iniguez Pulse Ox Last 24 Hr 97.2 F-98.5 F 66-89 17-20 146-191/50-119 96-100 Intake & Output 11/21/18 11/22/18 11/23/18 11/24/18 23:59 23:59 23:59 23:59 Intake Total 200 0 Balance 200 0 Weight 111 lb GENERAL: The patient is awake, alert, and oriented to self, in no acute distress. HEAD: Normal with no signs of trauma. EYES: PERRL, extraocular movements intact, sclera anicteric, conjunctiva clear. No ptosis. ENT: Ears normal, nares patent, oropharynx clear without exudates, moist mucous membranes. NECK: Trachea midline, full range of motion, supple. LUNGS: Breath sounds equal, clear to auscultation bilaterally, no wheezes, no crackles, no accessory muscle use. HEART: Regular rate and rhythm, S1, S2 ABDOMEN: Soft, lower abdominal/suprapubic tenderness, ND, no voluntary or involuntary guarding or rigidity, positive bowel sounds, no CVA tenderness EXTREMITIES: 2+ pulses, warm, well-perfused, no edema. PSYCH: Normal mood, normal affect. SKIN: Warm, dry, normal turgor, no rashes or lesions noted Laboratory Results - last 24 hr 11/23/18 11/23/18 11/23/18 13:35 13:35 13:35 WBC 7.4 RBC 4.40 Hgb 12.6 Hct 38.5 D MCV 87.5 MCH 28.6 MCHC 32.7 RDW 14.2 Plt Count 291 D MPV 8.0 Absolute Neuts (auto) 5.1 Neutrophils % 69.6 D Lymphocytes % 20.9 D Monocytes % 8.0 D Eosinophils % 1.3 D Basophils % 0.2 Nucleated RBC % 0 PT with INR 11.80 INR 1.00 PTT (Actin FS) 33.4 VBG pH POC VBG pCO2 POC VBG pO2 VBG HCO3 VBG O2 Sat (Sosa) VBG Base Excess Sodium 133 L Potassium 4.4 Chloride 100 Carbon Dioxide 24 Anion Gap 9 BUN 26 H Creatinine 0.7 Creat Clearance w eGFR 78.97 POC Glucometer Random Glucose 211 H Lactic Acid Calcium 9.4 Phosphorus Magnesium Total Bilirubin 0.3 AST 7 L ALT 11 L Alkaline Phosphatase 94 Troponin I Total Protein 8.0 Albumin 3.4 Urine Color Urine Appearance Urine pH Ur Specific [place] Urine Protein Urine Glucose (UA) Urine Ketones Urine Blood Urine Nitrite Urine Bilirubin Urine Urobilinogen Ur Leukocyte Esterase Urine WBC (Auto) Urine RBC (Auto) Urine Casts (Auto) U Epithel Cells (Auto) Urine Crystals (Auto) Urine Bacteria (Auto) Urine Yeast (Auto) 11/23/18 11/23/18 11/23/18 13:35 13:35 13:54 WBC RBC Hgb Hct MCV MCH MCHC RDW Plt Count MPV Absolute Neuts (auto) Neutrophils % Lymphocytes % Monocytes % Eosinophils % Basophils % Nucleated RBC % PT with INR INR PTT (Actin FS) VBG pH 7.37 POC VBG pCO2 40.3 L POC VBG pO2 43.9 H VBG HCO3 22.6 L VBG O2 Sat (Sosa) 77.4 VBG Base Excess -2.0 Sodium Potassium Chloride Carbon Dioxide Anion Gap BUN Creatinine Creat Clearance w eGFR POC Glucometer Random Glucose Lactic Acid 3.3 H* Calcium Phosphorus Magnesium Total Bilirubin AST ALT Alkaline Phosphatase Troponin I < 0.02 Total Protein Albumin Urine Color Urine Appearance Urine pH Ur Specific [place] Urine Protein Urine Glucose (UA) Urine Ketones Urine Blood Urine Nitrite Urine Bilirubin Urine Urobilinogen Ur Leukocyte Esterase Urine WBC (Auto) Urine RBC (Auto) Urine Casts (Auto) U Epithel Cells (Auto) Urine Crystals (Auto) Urine Bacteria (Auto) Urine Yeast (Auto) 11/23/18 11/23/18 11/23/18 14:00 18:30 20:34 WBC RBC Hgb Hct MCV MCH MCHC RDW Plt Count MPV Absolute Neuts (auto) Neutrophils % Lymphocytes % Monocytes % Eosinophils % Basophils % Nucleated RBC % PT with INR INR PTT (Actin FS) VBG pH POC VBG pCO2 POC VBG pO2 VBG HCO3 VBG O2 Sat (Sosa) VBG Base Excess Sodium Potassium Chloride Carbon Dioxide Anion Gap BUN Creatinine Creat Clearance w eGFR POC Glucometer 122 Random Glucose Lactic Acid 5.4 H* Calcium Phosphorus Magnesium Total Bilirubin AST ALT Alkaline Phosphatase Troponin I Total Protein Albumin Urine Color Yellow Urine Appearance Turbid Urine pH 6.5 Ur Specific [place] 1.010 Urine Protein 3+ H Urine Glucose (UA) 1+ H Urine Ketones Negative Urine Blood 2+ H Urine Nitrite Negative Urine Bilirubin Negative Urine Urobilinogen 0.2 Ur Leukocyte Esterase 3+ H Urine WBC (Auto) 1251 Urine RBC (Auto) 10 Urine Casts (Auto) 4 U Epithel Cells (Auto) 1.1 Urine Crystals (Auto) Urine Bacteria (Auto) 304.7 Urine Yeast (Auto) Yeast seen 11/24/18 11/24/18 11/24/18 06:30 07:00 08:20 WBC 8.0 RBC 4.07 Hgb 12.0 Hct 35.8 MCV 87.9 MCH 29.6 MCHC 33.7 RDW 14.3 Plt Count 262 MPV 8.2 Absolute Neuts (auto) 5.3 Neutrophils % 66.2 Lymphocytes % 23.1 Monocytes % 9.1 Eosinophils % 1.4 Basophils % 0.2 Nucleated RBC % 0 PT with INR INR PTT (Actin FS) VBG pH POC VBG pCO2 POC VBG pO2 VBG HCO3 VBG O2 Sat (Sosa) VBG Base Excess Sodium 137 Potassium 4.5 Chloride 107 Carbon Dioxide 19 L Anion Gap 10 BUN 26 H Creatinine 0.7 Creat Clearance w eGFR 78.97 POC Glucometer 112 Random Glucose 112 H Lactic Acid Calcium 8.8 Phosphorus 3.9 Magnesium 2.0 Total Bilirubin AST ALT Alkaline Phosphatase Troponin I Total Protein Albumin Urine Color Urine Appearance Urine pH Ur Specific [place] Urine Protein Urine Glucose (UA) Urine Ketones Urine Blood Urine Nitrite Urine Bilirubin Urine Urobilinogen Ur Leukocyte Esterase Urine WBC (Auto) Urine RBC (Auto) Urine Casts (Auto) U Epithel Cells (Auto) Urine Crystals (Auto) Urine Bacteria (Auto) Urine Yeast (Auto) 11/24/18 11/24/18 08:20 11:02 WBC RBC Hgb Hct MCV MCH MCHC RDW Plt Count MPV Absolute Neuts (auto) Neutrophils % Lymphocytes % Monocytes % Eosinophils % Basophils % Nucleated RBC % PT with INR INR PTT (Actin FS) VBG pH POC VBG pCO2 POC VBG pO2 VBG HCO3 VBG O2 Sat (Sosa) VBG Base Excess Sodium Potassium Chloride Carbon Dioxide Anion Gap BUN Creatinine Creat Clearance w eGFR POC Glucometer 146 Random Glucose Lactic Acid 1.0 Calcium Phosphorus Magnesium Total Bilirubin AST ALT Alkaline Phosphatase Troponin I Total Protein Albumin Urine Color Urine Appearance Urine pH Ur Specific [place] Urine Protein Urine Glucose (UA) Urine Ketones Urine Blood Urine Nitrite Urine Bilirubin Urine Urobilinogen Ur Leukocyte Esterase Urine WBC (Auto) Urine RBC (Auto) Urine Casts (Auto) U Epithel Cells (Auto) Urine Crystals (Auto) Urine Bacteria (Auto) Urine Yeast (Auto) Active Medications Generic Name Dose Route Start Last Admin Trade Name An PRN Reason Stop Dose Admin Amlodipine Besylate 10 mg 11/24/18 10:00 11/24/18 09:42 Norvasc - PO 10 mg DAILY SEAN Administration Aspirin 81 mg 11/24/18 10:00 11/24/18 09:42 Asa - PO 81 mg DAILY [facility] Administration Atorvastatin Calcium 20 mg 11/23/18 22:00 11/23/18 22:54 Lipitor - PO 20 mg HS SEAN Administration Calcium Carbonate 1,300 mg 11/24/18 00:45 11/24/18 09:43 Calcium Carbonate - PO 1,300 mg BID [facility] Administration Clopidogrel Bisulfate 75 mg 11/24/18 10:00 11/24/18 09:42 Plavix - PO 75 mg DAILY [facility] Administration Docusate Sodium 100 mg 11/23/18 22:00 11/24/18 09:42 Colace - PO 100 mg BID [facility] Administration Duloxetine HCl 20 mg 11/24/18 10:00 11/24/18 09:44 Cymbalta - PO 20 mg DAILY [facility] Administration Ferrous Sulfate 325 mg 11/24/18 10:00 11/24/18 09:42 Feosol - PO 325 mg DAILY [facility] Administration Fluconazole 200 mg 11/24/18 12:30 Diflucan - PO DAILY [facility] Heparin Sodium (Porcine) 5,000 unit 11/23/18 22:00 11/24/18 05:24 Heparin - SQ 5,000 unit TID [facility] Administration Sodium Chloride 1,000 mls @ 100 mls/hr 11/24/18 08:00 11/24/18 08:00 Normal Saline - IV 100 mls/hr ASDIR [facility] Administration Insulin Aspart 1 vial 11/23/18 16:30 11/24/18 11:04 Novolog Vial Sliding Scale - SQ Not Given ACHS [facility] Protocol Lactobacillus Acidophilus 1 tab 11/24/18 10:00 11/24/18 09:42 Bacid - PO 1 tab DAILY [facility] Administration Metoprolol Succinate 75 mg 11/23/18 22:00 11/24/18 09:42 Toprol Xl - PO 75 mg BID [facility] Administration Polyethylene Glycol 17 gm 11/23/18 22:00 11/24/18 05:24 Miralax (For Daily Use) - PO 17 gm TID [facility] Administration Tamsulosin HCl 0.8 mg 11/24/18 08:30 11/24/18 09:41 Flomax - PO 0.8 mg DAILY@0830 [facility] Administration Home Medications Medication Instructions Recorded Duloxetine HCl 20 mg PO DAILY 12/23/15 Ferrous Sulfate 325 mg PO DAILY 12/23/15 Polyethylene Glycol 3350 [Miralax 17 gm PO TID 12/23/15 119 gm Btl -] metFORMIN HCL [Metformin HCl] 850 mg PO BID 12/23/15 Docusate Sodium [Colace -] 100 mg PO BID #40 capsule 04/14/16 Calcium Carbonate - 1,300 mg PO BID #30 tablet 06/13/17 Lactobacillus Acidophilus [Bacid -] 1 tab PO DAILY tab 06/13/17 Metoprolol Succinate [Toprol XL -] 75 mg PO BID #180 tab.sr.24h 06/13/17 Tamsulosin HCl [Flomax -] 0.8 mg PO DAILY@0830 #30 cap 06/23/17 Amlodipine Besylate [Norvasc -] 10 mg PO DAILY 01/16/18 Atorvastatin Ca [Lipitor] 20 mg PO HS 01/16/18 Clopidogrel Bisulfate [Plavix] 75 mg PO DAILY 01/16/18 Aspirin [ASA -] 81 mg PO DAILY tab.chew 01/18/18 Active Medications Amlodipine Besylate (Norvasc -) 10 mg PO DAILY [facility] Last Admin: 11/24/18 09:42 Dose: 10 mg Aspirin (Asa -) 81 mg PO DAILY [facility] Last Admin: 11/24/18 09:42 Dose: 81 mg Atorvastatin Calcium (Lipitor -) 20 mg PO HS [facility] Last Admin: 11/23/18 22:54 Dose: 20 mg Calcium Carbonate (Calcium Carbonate -) 1,300 mg PO BID [facility] Last Admin: 11/24/18 09:43 Dose: 1,300 mg Clopidogrel Bisulfate (Plavix -) 75 mg PO DAILY [facility] Last Admin: 11/24/18 09:42 Dose: 75 mg Docusate Sodium (Colace -) 100 mg PO BID [facility] Last Admin: 11/24/18 09:42 Dose: 100 mg Duloxetine HCl (Cymbalta -) 20 mg PO DAILY [facility] Last Admin: 11/24/18 09:44 Dose: 20 mg Ferrous Sulfate (Feosol -) 325 mg PO DAILY [facility] Last Admin: 11/24/18 09:42 Dose: 325 mg Fluconazole (Diflucan -) 200 mg PO DAILY [facility] Heparin Sodium (Porcine) (Heparin -) 5,000 unit SQ TID [facility] Last Admin: 11/24/18 05:24 Dose: 5,000 unit Sodium Chloride (Normal Saline -) 1,000 mls @ 100 mls/hr IV ASDIR [facility] Last Admin: 11/24/18 08:00 Dose: 100 mls/hr Insulin Aspart (Novolog Vial Sliding Scale -) 1 vial SQ ACHS [facility]; Protocol Last Admin: 11/24/18 11:04 Dose: Not Given Lactobacillus Acidophilus (Bacid -) 1 tab PO DAILY [facility] Last Admin: 11/24/18 09:42 Dose: 1 tab Metoprolol Succinate (Toprol Xl -) 75 mg PO BID [facility] Last Admin: 11/24/18 09:42 Dose: 75 mg Polyethylene Glycol (Miralax (For Daily Use) -) 17 gm PO TID [facility] Last Admin: 11/24/18 05:24 Dose: 17 gm Tamsulosin HCl (Flomax -) 0.8 mg PO DAILY@0830 [facility] Last Admin: 11/24/18 09:41 Dose: 0.8 mg Microbiology 11/23/18 14:00 Urine - Urine - Catheterized Urine Culture - Final Yeast Like Organism ASSESSMENT/PLAN: 88 yof with PMhx of Dementia, left eye blindness, DM, CVA, HTN, HLD, quadruple bypass (2003), CAD with abnormal stress test (medical management),orthostatic hypotension, recurrent UTIs, bedridden, admitted with lower complicated UTI with cystitis -Lower complicated UTI with cystitis with sepsis -Lactic acidosis -Uncontrolled HTN -CAD s/p CABG 2003 and abnormal stress test -NIDDM -HTN -CVA -HLD -Left eye blindness -Dementia Plan: Urine cx with yeast. Patient with ongoing suprapubic tenderness on exam. Will d/c ertapenem. Start fluconazole and check renal/bladder US. Repeat urine studies via straight cath (discussed with nursing) d/c abx if repeat urine studies and imaging non concerning. prior h/o hydronephrosis/urinary retention. Monitor. Renal function stable. Continue metoprolol/amlodipine. IV hydration,lactate normalized. ASA/plavix/statin/metoprolol ISS, diabetic diet Pureed diet, aspiration precautions DVTPPX heparin Dispo d/c in 24-48 hours pending above and clinical improvement. Plan discussed with nursing in detail, all questions answered. Visit type - Emergency Visit Emergency Visit: Yes ED Registration Date: 11/23/18 Care time: The patient presented to the Emergency Department on the above date and was hospitalized for further evaluation of their emergent condition. - New Patient This patient is new to me today: No - Critical Care Critical Care patient: No - Discharge Referral Referred to [facility] Med P.C.: No
[2018-11-24 12:54] LABS: EPI CELLS 1.6 /HPF (0-5); PH,URINE 6.5 (5.0-8.0); URINE APPEARANCE TURBID; URINE BACTERIA 80.8 /hpf (NEGATIVE); URINE BILIRUBIN NEGATIVE (NEGATIVE); URINE CASTS 4 /hpf (0-8); URINE COLOR YELLOW; URINE GLUCOSE (UA) NEGATIVE (NEGATIVE); URINE KETONE NEGATIVE (NEGATIVE); URINE LEUK ESTERASE 3+ (NEGATIVE); URINE NITRITE NEGATIVE (NEGATIVE); URINE PROTEIN 3+ (NEGATIVE); URINE RBC 5 /hpf (0-4); URINE UROBILINOGEN 0.2 mg/dL (0.2-1.0); URINE WBC 632 /hpf (0-5)
[2018-11-24] MEDS ORDERED: PT OWN MED DRAWER 7, Y5N ONE (21:09)
[2018-11-24] MEDS: ATORVASTATIN CA 20 MG TABLET (FP) PO SCH (21:10)
[2018-11-25] MEDS: HEPARIN NA (PORCINE) 5,000 UNITS/ML 1ML VIAL SQ SCH ×3 (06:13→21:30)
[2018-11-25] MEDS: POLYETHYLENE GLYCOL 3350 119 GM BTL PO SCH ×3 (06:14→21:34)
[2018-11-25] MEDS: INSULIN SLIDING SCALE (NOVOLOG) 1 VIAL SQ SCH ×4 (06:15→21:33)
[2018-11-25] MEDS: SODIUM CHLORIDE 1,000 ML IV SCH ×2 (08:17→20:12)
[2018-11-25] MEDS: TAMSULOSIN HCL 0.4 MG CAP PO SCH (08:18)
[2018-11-25 09:00] LABS: ANION GAP 10 MMOL/L (8-16); BLOOD UREA NITROGEN 28 mg/dL (7-18); CALCIUM 8.1 mg/dL (8.5-10.1); CHLORIDE 112 mmol/L (98-107); CO2 18 mmol/L (21-32); CREATININE 0.7 mg/dL (0.55-1.3); GLUCOSE,RANDOM 127 mg/dL (74-106); POTASSIUM 4.4 mmol/L (3.5-5.1); SODIUM 141 mmol/L (136-145)
[2018-11-25] MEDS ORDERED: PT OWN MED DRAWER 7, Y5N ONE ×2 (09:05→20:40)
[2018-11-25] MEDS: ASPIRIN 81 MG CHEWABLE TABLETS PO SCH (09:09)
[2018-11-25] MEDS: LACTOBACILLUS ACIDOPHILUS 1 TABLET PO SCH (09:10)
[2018-11-25] MEDS: CALCIUM CARBONATE 650 MG TABLET PO SCH ×2 (09:10→21:30)
[2018-11-25] MEDS: DOCUSATE SODIUM 100 MG CAPSULE (FP) PO SCH ×2 (09:10→21:30)
[2018-11-25] MEDS: CLOPIDOGREL BISULFATE 75 MG TABLET (FP) PO SCH (09:11)
[2018-11-25] MEDS: FERROUS SO4 325 MG TABLET (FP) PO SCH (09:11)
[2018-11-25] MEDS: amLODIPine BESYLATE 10 MG TABLET (FP) PO SCH (09:11)
[2018-11-25] MEDS: metoPROLOL SUCCINATE 25 MG TAB.SR.24H (FP) PO SCH ×2 (09:11→21:30)
[2018-11-25 10:50] LABS: BASO % 0.4 % (0-2.0); EOS % 0.9 % (0-4.5); HEMATOCRIT 32.1 % (32.4-45.2); HEMOGLOBIN 10.7 GM/dL (10.7-15.3); LYMPH % 21.6 % (8-40); MCH 29.7 pg (25.7-33.7); MCHC 33.2 g/dl (32.0-36.0); MEAN CELL VOLUME 89.4 fl (80-96); MONO % 8.5 % (3.8-10.2); NEUT % 68.6 % (42.8-82.8); RBC 3.59 M/mm3 (3.60-5.2); RDW 14.5 % (11.6-15.6); WHITE BLOOD COUNT 6.7 K/mm3 (4.0-10.0)
[2018-11-25] MEDS: DULoxetine HCL 20 MG CAPSULE.DR (FP) PO SCH (11:38)
--- NOTE | 2018-11-25 12:22 | DS ---
Physical Exam: SUBJECTIVE: Patient seen and examined, no complaints or pain today. OBJECTIVE: Vital Signs Period Temp Pulse Resp BP Sys/Iniguez Pulse Ox Last 24 Hr 97.6 F-98.3 F 65-72 16-20 124-169/64-74 99 PHYSICAL EXAM GENERAL: The patient is awake, alert, and oriented to self, in no acute distress. HEAD: Normal with no signs of trauma. EYES: PERRL, extraocular movements intact, sclera anicteric, conjunctiva clear. No ptosis. ENT: Ears normal, nares patent, oropharynx clear without exudates, moist mucous membranes. NECK: Trachea midline, full range of motion, supple. LUNGS: Breath sounds equal, clear to auscultation bilaterally, no wheezes, no crackles, no accessory muscle use. HEART: Regular rate and rhythm, S1, S2 ABDOMEN: Soft, no abdomina or suprapubic tenderness, ND, no voluntary or involuntary guarding or rigidity, positive bowel sounds, no CVA tenderness EXTREMITIES: 2+ pulses, warm, well-perfused, no edema. PSYCH: Normal mood, normal affect. SKIN: Warm, dry, normal turgor, no rashes or lesions noted LABS Laboratory Results - last 24 hr 11/24/18 11/24/18 11/24/18 12:30 17:28 21:02 WBC RBC Hgb Hct MCV MCH MCHC RDW Plt Count Absolute Neuts (auto) Neutrophils % Lymphocytes % Monocytes % Eosinophils % Basophils % Nucleated RBC % Sodium Potassium Chloride Carbon Dioxide Anion Gap BUN Creatinine Creat Clearance w eGFR POC Glucometer 192 188 Random Glucose Calcium Urine Color Yellow Urine Appearance Turbid Urine pH 6.5 Ur Specific [place] 1.011 Urine Protein 3+ H Urine Glucose (UA) Negative Urine Ketones Negative Urine Blood 1+ H Urine Nitrite Negative Urine Bilirubin Negative Urine Urobilinogen 0.2 Ur Leukocyte Esterase 3+ H Urine WBC (Auto) 632 Urine RBC (Auto) 5 Urine Casts (Auto) 4 U Epithel Cells (Auto) 1.6 Urine Bacteria (Auto) 80.8 11/25/18 11/25/18 11/25/18 06:00 07:45 10:20 WBC 6.7 RBC 3.59 L Hgb 10.7 Hct 32.1 L MCV 89.4 MCH 29.7 MCHC 33.2 RDW 14.5 Plt Count No Result Required. Absolute Neuts (auto) 4.6 Neutrophils % 68.6 Lymphocytes % 21.6 Monocytes % 8.5 Eosinophils % 0.9 Basophils % 0.4 Nucleated RBC % 0 Sodium 141 Potassium 4.4 Chloride 112 H Carbon Dioxide 18 L Anion Gap 10 BUN 28 H Creatinine 0.7 Creat Clearance w eGFR 78.97 POC Glucometer 127 Random Glucose 127 H Calcium 8.1 L Urine Color Urine Appearance Urine pH Ur Specific [place] Urine Protein Urine Glucose (UA) Urine Ketones Urine Blood Urine Nitrite Urine Bilirubin Urine Urobilinogen Ur Leukocyte Esterase Urine WBC (Auto) Urine RBC (Auto) Urine Casts (Auto) U Epithel Cells (Auto) Urine Bacteria (Auto) 11/25/18 11:39 WBC RBC Hgb Hct MCV MCH MCHC RDW Plt Count Absolute Neuts (auto) Neutrophils % Lymphocytes % Monocytes % Eosinophils % Basophils % Nucleated RBC % Sodium Potassium Chloride Carbon Dioxide Anion Gap BUN Creatinine Creat Clearance w eGFR POC Glucometer 180 Random Glucose Calcium Urine Color Urine Appearance Urine pH Ur Specific [place] Urine Protein Urine Glucose (UA) Urine Ketones Urine Blood Urine Nitrite Urine Bilirubin Urine Urobilinogen Ur Leukocyte Esterase Urine WBC (Auto) Urine RBC (Auto) Urine Casts (Auto) U Epithel Cells (Auto) Urine Bacteria (Auto) Microbiology 11/24/18 12:30 Urine - Urine - Catheterized Urine Culture - Final NO GROWTH OBTAINED 11/23/18 13:54 Blood - Peripheral Venous Blood Culture - Preliminary NO GROWTH OBTAINED AFTER 24 HOURS, INCUBATION TO CONTINUE FOR 4 DAYS. 11/23/18 13:35 Blood - Peripheral Venous Blood Culture - Preliminary NO GROWTH OBTAINED AFTER 24 HOURS, INCUBATION TO CONTINUE FOR 4 DAYS. 11/23/18 14:00 Urine - Urine - Catheterized Urine Culture - Final Yeast Like Organism Renal/Bladder ultrasound - chronic medical renal disease, large amount of debris or sludge or blood in urinary bladder HOSPITAL COURSE: Date of Admission:11/23/18 Date of Discharge: 11/25/18 Minutes to complete discharge: 40 Discharge Summary Reason For Visit: SEPSIS,HX OF ESBL E.COLI INFECTION Current Active Problems History of ESBL E. coli infection (Acute) Sepsis (Acute) UTI (urinary tract infection) (Acute) Hospital Course: 88 yof with PMhx of Dementia, left eye blindness, DM, CVA, HTN, HLD, quadruple bypass (2003), CAD with abnormal stress test (medical management),orthostatic hypotension, recurrent UTIs, bedridden, brought in by family as home care provider noted dark urine and patient reported vague lower abdominal discomfort. She was emperically placed on ertapenem. She had lactic acidosis on admission that resolved with hydration. Her urine cultures grew yeast, but otherwise negative. Repeat urine culture via straight cath sent were negative. She received a dose of diflucan pending repeat urine studies and also had kidney and bladder ultrasound that showed chronic medical renal disease and large amount of debris or sludge or blood in urinary bladder. Her urine was negative for RBCS and no hematuria noted inhouse. She had no evidence of urinary retention inhouse. She is advised outpatient urology follow up. She had no fevers or leucocytosis during her stay. She was asymptomatic with no concerns for suprapubic or abdominal tenderness prior to discharge. She will be discharged home with VNS/soil conservation aide/daughter in stable condition Condition: Stable - Instructions Diet, Activity, Other Instructions: You were admitted with cloudy urine and concerns for lower belly pain. You were placed on antibiotics for possible urinary tract infection but your urine studies came back negative and antibiotics have been discontinued. You also had kidney and bladder ultrasound done. Your bladder ultrasound showed "debris or sludge" in the urinary bladder) MEDICATIONS: Continue home medications as before FOLLOW UP: With your regular doctor in 1 week Discuss with your doctor for outpatient follow up with a urologist (contact information of urologist who has seen your in the past is provided). If you notice any fevers, chills, concerning pain or symptoms, please call 911 or come to the ED. Referrals: Nisa Lyons MD [Primary Care Provider] - Disposition: VNS/HOME HEALTH CARE - Home Medications Comprehensive Discharge Medication List: Ambulatory Orders Duloxetine HCl 20 mg PO DAILY 12/23/15 Ferrous Sulfate 325 mg PO DAILY 12/23/15 Polyethylene Glycol 3350 [Miralax 119 gm Btl -] 17 gm PO TID 12/23/15 metFORMIN HCL [Metformin HCl] 850 mg PO BID 12/23/15 Docusate Sodium [Colace -] 100 mg PO BID #40 capsule 04/14/16 Calcium Carbonate - 1,300 mg PO BID #30 tablet 06/13/17 Lactobacillus Acidophilus [Bacid -] 1 tab PO DAILY tab 06/13/17 Metoprolol Succinate [Toprol XL -] 75 mg PO BID #180 tab.sr.24h 06/13/17 Tamsulosin HCl [Flomax -] 0.8 mg PO DAILY@0830 #30 cap 06/23/17 Amlodipine Besylate [Norvasc -] 10 mg PO DAILY 01/16/18 Atorvastatin Ca [Lipitor] 20 mg PO HS 01/16/18 Clopidogrel Bisulfate [Plavix] 75 mg PO DAILY 01/16/18 Aspirin [ASA -] 81 mg PO DAILY tab.chew 01/18/18 This patient is new to me today: No Emergency Visit: Yes ED Registration Date: 11/23/18 Care time: The patient presented to the Emergency Department on the above date and was hospitalized for further evaluation of their emergent condition. Critical Care patient: No - Discharge Referral Referred to [facility] Med P.C.: No
[2018-11-25] MEDS: ATORVASTATIN CA 20 MG TABLET (FP) PO SCH (21:30)
[2018-11-26] MEDS: HEPARIN NA (PORCINE) 5,000 UNITS/ML 1ML VIAL SQ SCH ×2 (06:06→13:55)
[2018-11-26] MEDS: INSULIN SLIDING SCALE (NOVOLOG) 1 VIAL SQ SCH ×2 (06:18→11:36)
[2018-11-26] MEDS: POLYETHYLENE GLYCOL 3350 119 GM BTL PO SCH ×2 (06:18→13:54)
[2018-11-26 06:49] VITALS: PULSE 69
[2018-11-26] MEDS: SODIUM CHLORIDE 1,000 ML IV SCH (07:01)
--- NOTE | 2018-11-26 08:54 | PN ---
Physical Exam: SUBJECTIVE: Patient seen and examined, no complaints, pleasant. OBJECTIVE: Vital Signs Period Temp Pulse Resp BP Sys/Iniguez Pulse Ox Last 24 Hr 98.0 F-98.2 F 68-69 18-18 127-145/63-98 99 GENERAL: The patient is awake, alert, and oriented to self, in no acute distress. HEAD: Normal with no signs of trauma. EYES: PERRL, extraocular movements intact, sclera anicteric, conjunctiva clear. No ptosis. ENT: Ears normal, nares patent, oropharynx clear without exudates, moist mucous membranes. NECK: Trachea midline, full range of motion, supple. LUNGS: Breath sounds equal, clear to auscultation bilaterally, no wheezes, no crackles, no accessory muscle use. HEART: Regular rate and rhythm, S1, S2 ABDOMEN: Soft, vague tenderness anywhere over abdomen and chest on deep palpation, none present when distracted, no voluntary or involuntary guarding or rigidity, positive bowel sounds, no CVA tenderness EXTREMITIES: 2+ pulses, warm, well-perfused, no edema. PSYCH: Normal mood, normal affect. SKIN: Warm, dry, normal turgor, no rashes or lesions noted Laboratory Results - last 24 hr 11/25/18 11/25/18 11/25/18 07:45 10:20 11:39 WBC 6.7 RBC 3.59 L Hgb 10.7 Hct 32.1 L MCV 89.4 MCH 29.7 MCHC 33.2 RDW 14.5 Plt Count No Result Required. Absolute Neuts (auto) 4.6 Neutrophils % 68.6 Lymphocytes % 21.6 Monocytes % 8.5 Eosinophils % 0.9 Basophils % 0.4 Nucleated RBC % 0 Sodium 141 Potassium 4.4 Chloride 112 H Carbon Dioxide 18 L Anion Gap 10 BUN 28 H Creatinine 0.7 Creat Clearance w eGFR 78.97 POC Glucometer 180 Random Glucose 127 H Calcium 8.1 L 11/25/18 11/25/18 11/26/18 17:12 21:32 06:15 WBC RBC Hgb Hct MCV MCH MCHC RDW Plt Count Absolute Neuts (auto) Neutrophils % Lymphocytes % Monocytes % Eosinophils % Basophils % Nucleated RBC % Sodium Potassium Chloride Carbon Dioxide Anion Gap BUN Creatinine Creat Clearance w eGFR POC Glucometer 135 174 121 Random Glucose Calcium Active Medications Generic Name Dose Route Start Last Admin Trade Name Freq PRN Reason Stop Dose Admin Amlodipine Besylate 10 mg 11/24/18 10:00 11/25/18 09:11 Norvasc - PO 10 mg DAILY SEAN Administration Aspirin 81 mg 11/24/18 10:00 11/25/18 09:09 Asa - PO 81 mg DAILY SEAN Administration Atorvastatin Calcium 20 mg 11/23/18 22:00 11/25/18 21:30 Lipitor - PO 20 mg HS SEAN Administration Calcium Carbonate 1,300 mg 11/24/18 00:45 11/25/18 21:30 Calcium Carbonate - PO 1,300 mg BID SEAN Administration Clopidogrel Bisulfate 75 mg 11/24/18 10:00 11/25/18 09:11 Plavix - PO 75 mg DAILY SEAN Administration Docusate Sodium 100 mg 11/23/18 22:00 11/25/18 21:30 Colace - PO 100 mg BID SEAN Administration Duloxetine HCl 20 mg 11/24/18 10:00 11/25/18 11:38 Cymbalta - PO 20 mg DAILY SEAN Administration Ferrous Sulfate 325 mg 11/24/18 10:00 11/25/18 09:11 Feosol - PO 325 mg DAILY SEAN Administration Heparin Sodium (Porcine) 5,000 unit 11/23/18 22:00 11/26/18 06:06 Heparin - SQ 5,000 unit TID [facility] Administration Sodium Chloride 1,000 mls @ 100 mls/hr 11/24/18 08:00 11/26/18 07:01 Normal Saline - IV 100 mls/hr ASDIR SEAN Administration Insulin Aspart 1 vial 11/23/18 16:30 11/26/18 06:18 Novolog Vial Sliding Scale - SQ Not Given ACHS [facility] Protocol Lactobacillus Acidophilus 1 tab 11/24/18 10:00 11/25/18 09:10 Bacid - PO 1 tab DAILY SEAN Administration Metoprolol Succinate 75 mg 11/23/18 22:00 11/25/18 21:30 Toprol Xl - PO 75 mg BID SEAN Administration Polyethylene Glycol 17 gm 11/23/18 22:00 11/26/18 06:18 Miralax (For Daily Use) - PO 17 gm TID SEAN Administration Tamsulosin HCl 0.8 mg 11/24/18 08:30 11/25/18 08:18 Flomax - PO 0.8 mg DAILY@0830 SEAN Administration ASSESSMENT/PLAN: 88 yof with PMhx of Dementia, left eye blindness, DM, CVA, HTN, HLD, quadruple bypass (2003), CAD with abnormal stress test (medical management),orthostatic hypotension, recurrent UTIs, bedridden, admitted with lower complicated UTI with cystitis -Lower complicated UTI with cystitis with sepsis -Lactic acidosis -Uncontrolled HTN -CAD s/p CABG 2003 and abnormal stress test -NIDDM -HTN -CVA -HLD -Left eye blindness -Dementia Plan: No new concerns. Off abx. repeat urine cx neg. Aggressive bowel regimen. Outpatient urology follow up. Resume home meds. D/c held yesterday as patient needs 24 hour manager home healthcare arranged. D/c home with services today once disposition arrangements made. Plan discussed with nursing, all questions answered. Visit type - Emergency Visit Emergency Visit: Yes ED Registration Date: 11/23/18 Care time: The patient presented to the Emergency Department on the above date and was hospitalized for further evaluation of their emergent condition. - New Patient This patient is new to me today: No - Critical Care Critical Care patient: No - Discharge Referral Referred to [facility] Med P.C.: No
[2018-11-26] MEDS: amLODIPine BESYLATE 10 MG TABLET (FP) PO SCH (09:38)
[2018-11-26] MEDS: LACTOBACILLUS ACIDOPHILUS 1 TABLET PO SCH (09:38)
[2018-11-26] MEDS: DOCUSATE SODIUM 100 MG CAPSULE (FP) PO SCH (09:38)
[2018-11-26] MEDS: FERROUS SO4 325 MG TABLET (FP) PO SCH (09:38)
[2018-11-26] MEDS: CLOPIDOGREL BISULFATE 75 MG TABLET (FP) PO SCH (09:38)
[2018-11-26] MEDS: ASPIRIN 81 MG CHEWABLE TABLETS PO SCH (09:38)
[2018-11-26] MEDS: TAMSULOSIN HCL 0.4 MG CAP PO SCH (09:39)
[2018-11-26] MEDS: metoPROLOL SUCCINATE 25 MG TAB.SR.24H (FP) PO SCH (09:39)
[2018-11-26 10:17] VITALS: BP 154/80; TEMP 97.9
--- NOTE | 2018-11-26 11:16 | EKG ---
Test Reason : Blood Pressure : / mmHG Vent. Rate : 065 BPM Atrial Rate : 065 BPM P-R Int : 188 ms QRS Dur : 104 ms QT Int : 432 ms P-R-T Axes : 018 -41 013 degrees QTc Int : 449 ms SINUS RHYTHM WITH PREMATURE VENTRICULAR COMPLEXES VS. ABERRANT CONDUCTION LEFT AXIS DEVIATION POSSIBLE ANTEROSEPTAL INFARCT , AGE UNDETERMINED ABNORMAL ECG WHEN COMPARED WITH ECG OF 07-MAY-2018 17:18, VENT. RATE HAS DECREASED T WAVE VARIATION Confirmed by JOSEMANUEL VINCENT MD ([id number]) on 11/26/2018 11:16:11 AM Referred By: Confirmed By:JOSEMANUEL VINCENT MD
[2018-11-26] MEDS ORDERED: PT OWN MED DRAWER 7, Y5N ONE (11:33)
[2018-11-26] MEDS: DULoxetine HCL 20 MG CAPSULE.DR (FP) PO SCH (11:35)
[2018-11-26] MEDS: CALCIUM CARBONATE 650 MG TABLET PO SCH (11:36)
--- NOTE | 2018-11-27 14:43 | PN ---
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 (short form) - Note 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: Called by microbiology lab, Blood cx 1/2 gram positive bacilli on 4th day. Daughter Naa called and informed. Patient is doing 'great' as discussed with her. No fevers, chills, pain or urinary concerns. Has been eating and mentating well as well. Offered needs blood culture and if can bring patient to the hospital. Daughter reports patient needs transport and additional arrangements to be brought to the hospital. She reported that [facility] does house calls and if it can be addressed at home, would prefer the same. Called Dr. Ritchie, patient well known to him. Discussed recent hospital stay and cuture results. Suspected contaminant and advises repeat blood cultures. Called [facility] ([phone]) spoke with Denisse about need for repeat blood cultures x 2. She will notify [employer] Philip Persaud who will be making house call on the patient tomorrow and will try to get blood cultures done today or maximum by tomorrow. Daughter called back and informed of the infectious disease recommendations and communication with [facility]. Informed that if patient has any new fevers, chills, new pain or concerns, decreased oral intake , decreased activity or changes in mental status, to bring patient back to ED. Daughter Naa relays full understanding and agrees to comply with instructions. Visit type - Emergency Visit Emergency Visit: No - New Patient This patient is new to me today: No - Critical Care Critical Care patient: No - Discharge Referral Referred to [facility] Med P.C[facility] No
== END 2018-11-26 14:57 | disposition home health service (06) | DRG 872 ==
LOC: JER 12:34 → JERBED 14:55 → J8W 23:33
PROVIDERS: ADMIT Hospitalist; ATTEND Hospitalist
DX: A41.9 Sepsis, unspecified organism (principal); N39.0 Urinary tract infection, site not specified; E87.2 Acidosis; B96.20 Unspecified Escherichia coli [E. coli] as the cause of diseases classified elsewhere; I25.10 Atherosclerotic heart disease of native coronary artery without angina pectoris; Z95.1 Presence of aortocoronary bypass graft; F03.90 Unspecified dementia, unspecified severity, without behavioral disturbance, psychotic disturbance, mood disturbance, and anxiety; E11.9 Type 2 diabetes mellitus without complications; I10 Essential (primary) hypertension; E78.5 Hyperlipidemia, unspecified; Z87.440 Personal history of urinary (tract) infections; H54.40 Blindness, one eye, unspecified eye; Z86.73 Personal history of transient ischemic attack (TIA), and cerebral infarction without residual deficits; Z79.4 Long term (current) use of insulin
CPT/HCPCS: 36415; 71045-TC-FY; 76775-TC; 76856-TC; 80048; 80053; 81003; 82803; 82962; 83605; 83735; 84100; 84484; 85025; 85610; 85730; 87040; 87077; 87086; 93005; 93010; 97116-GP; 97161-GP; 99284-25; J1644; J7030